=== PATIENT | male | born 1940 | race Caucasian/White ===

== ENCOUNTER 2018-11-13 18:06 | Inpatient (IN) | payer MEDICARE, OTHER, SELFPAY ==
[2018-11-13 18:11] VITALS: BP 132/79; PULSE 84; RESP 18; TEMP 36.7; O2SAT 97; BMI 31.9
--- NOTE | 2018-11-13 19:33 | PCM.PN.HOSP ---
Subjective: Internal medicine consult note This is a 78-year-old male with a significant history of hyperlipidemia; BPH and hypertension who slipped and fell on 11/09/2018 and sustained an acute comminuted fracture of the L proximal fibula metaphysis and had a plate and screws placed in his leg on 11/10/2018. [facility] at [place] and had the above procedure over there. Patient was sent here for rehab. Reports patient is nonweightbearing on his left leg. Internal medicine has been consulted to follow up with his chronic conditions. Report that he is able to move his toes on the left leg. A 12 point review of system is negative except as above. Vitals/I&O's: Vital Signs Temp Pulse Resp BP Pulse Ox 98.0 F 84 18 132/79 H 97 11/13/18 18:11 11/13/18 18:11 11/13/18 18:11 11/13/18 18:11 11/13/18 18:11 Oxygen Delivery Method Room Air Weight: 95.3 kg Body Mass Index (BMI) 31.9 General: Alert, Oriented x3, Cooperative HEENT: Atraumatic, PERRLA, EOMI, Normocephalic Neck: Supple, No JVD, Negative Carotid Bruits Lungs: Clear to auscultation, Normal air movement Cardiovascular: Regular rate, No murmurs Abdomen: Bowel Sounds Present, Soft, Non Tender Extremities: No edema, Capillary Refill Less than 3 Seconds Skin: No rashes, No breakdown Musculoskeletal: - - Left leg and left foot cast. Able to wiggle toes of left foot. Neurological: Neuro grossly intact - Except that he is hard of hearing. Psych/Mental Status: Normal Affect, Appropriate Current Medications Acetaminophen (Tylenol) 1,000 mg PO TID CAROLYN Hydrocodone Bitart/Acetaminophen ([place] 5mg-325mg) 1 tablet PO Q4H PRN PRN PRN Reason: MOD-SEVERE PAIN (4-1010) Aspirin (Ecotrin) 81 mg PO DAILY CAROLYN Atorvastatin Calcium (Lipitor) 20 mg PO QHS CAROLYN Bisacodyl (Dulcolax) 10 mg RECTAL .PRN X 1 PRN PRN Reason: Constipation Cholecalciferol (Vitamin D) 2,000 unit PO DAILY [facility] Enoxaparin Sodium (Lovenox) 40 mg SC DAILY@0600 CAROLYN Magnesium Hydroxide (Milk Of Magnesia) 30 ml PO .PRN X 1 PRN PRN Reason: Constipation Polyethylene Glycol (Miralax) 17 gm PO DAILY PRN PRN Reason: Constipation Senna/Docusate Sodium (Senokot-S, Anum-Colace) 2 tablet PO BID CAROLYN Tamsulosin HCl (Flomax) 0.4 mg PO DAILY [facility] Medical Necessity - Tobacco Use Smoking Status: Former smoker Assessment/Plan This is a 78-year-old male with a significant history of hyperlipidemia; BPH and hypertension who slipped and fell on 11/09/2018 and sustained an acute comminuted fracture of the L proximal fibula metaphysis and had a plate and screws placed who is here for rehab. Acute comminuted fracture of the proximal fibula metaphysis Status post plate and screws and cast. Patient to work with OT and PT. Primary team to follow. [place] and Tylenol as needed. Continue Senokot-S scheduled. Continue Dulcolax and MiraLAX as needed in the setting of narcotic use. Vitamin D continued Hypertension Patient reported that in the past he was taking atenolol but it was making him hypotensive and so at this time he is not on any blood pressure medication. On admission his blood pressure was fairly stable. Trend blood pressures Aspirin continued for ASCVD risk. Hyperlipidemia Lipitor continued Vitamin D deficiency Vitamin D continued BPH Flomax continued DVT prophylaxis Continue subcutaneous Lovenox Code Visit Inpatient E&M: [id number] [facility] L3
[2018-11-13 19:44] VITALS: BP 133/78; PULSE 92; RESP 16; TEMP 36.8; O2SAT 94
[2018-11-13 20:51] VITALS: O2SAT 95
[2018-11-13] MEDS: Acetaminophen 500 MG Tablet 1000 MG PO (21:34)
[2018-11-13] MEDS: Atorvastatin Calcium 20 MG Tablet PO (21:35)
[2018-11-13] MEDS: DiphenhydrAMINE 25 MG Capsule PO (21:41)
[2018-11-14] MEDS: Acetaminophen 500 MG Tablet 1000 MG PO ×3 (05:55→21:49)
[2018-11-14 07:00] VITALS: BP 144/80; PULSE 96; RESP 12; TEMP 36.4; O2SAT 100
[2018-11-14 07:24] LABS: Hematocrit 37.6 % (40-54); Hemoglobin 12.3 g/dl (13.0-16.5); Mean Corp Hgb Conc 32.7 g/gl (32-36); Mean Corpuscular Hgb 31.3 pg (27.0-32.0); Mean Corpuscular Volume 95.7 fL (80-94); Mean Platelet Vol. 8.8 fl (6.2-12.0); Platelet Count 256 K/mm3 (150-450); RBC Distribution Width CV 13.3 % (11.6-14.6); RBC Distribution Width SD 45.1 fl (35.1-43.9); Red Blood Count 3.93 M/mm3 (4.6-6.2); White Blood Count 10.2 K/mm3 (4.4-11.0)
[2018-11-14 07:25] LABS: Scan Indicated on CBC? Y/N NO
[2018-11-14 07:33] LABS: Anion Gap 10 (5-15); BUN 15 mg/dL (7-18); BUN/Creat Ratio 23.4 RATIO (10-20); Calcium,Total 9.3 mg/dL (8.5-10.1); Chloride 106 mmol/L (98-107); Creatinine, Serum 0.64 mg/dL (0.70-1.30); EST Glomerular Filtration Rate 128 mL/min (>60); Est Glom Filt Rate - Afr Amer 154 mL/min (>60); Estimated Creatinine Clearance 57.95 ml/min; Glucose 121 mg/dL (74-106); Potassium 3.4 mmol/L (3.5-5.1); Sodium Level 143 mmol/L (136-145)
[2018-11-14] MEDS: Aspirin E.C. 81 MG Tablet PO (07:36)
[2018-11-14] MEDS: Tamsulosin HCl 0.4 MG Capsule PO (07:36)
--- NOTE | 2018-11-14 11:31 | REHABEVAL_ITS ---
Admission Information Status Changes from Prescreening?: No changes Identified Actual Problem List:: Falls, Pain, ALteration in Cmfrt, Mobility Impaired, BP, Hypertension, Ineffect.D/C Plan r/t Psy Potential Problem List:: DVT, Bleeding, Infection, UTI, Aspiration, Falls, Skin Integrity, Depression Risk of Complications DVT: LMWH, POLINA Hose, Sequential Compression Device Bleeding: Monitor Lab Values, Nursing to Teach Precautions for anti-coagulation therapy., Wound, if applicable, to be assessed every shift., Stroke patients assessed for lethargy or change in status. Infection: Clinical Staff to Monitor for S/S of infection:, S/S of infection include fever, redness, warmth, etc. Urinary Tract Infection: Monitor for frequency, burning, discomfort, or incontinence., Nursing will obtain urine sample for urinalysis and C&S when ordered. Aspiration: Clinical staff will monitor for coughing, drooling, congestion., Speech will evaluate swallowing and dsyphasia., Nursing will monitor patient swallowing during meals. Falls: Patient will be evaluated for Fall Precautions, Patient will be placed on Fall Precautions as indicated per protocol. Skin Breakdown: Nursing will assess skin daily using assessment tool., Nursing will place on Skin Breakdown Precautions as indicated. Pain: Clinical staff will assess patient's pain level per protocol., Medications will be given, if needed, and the pain level reassessed., Other methods: Massage, distraction, decrease stimulus, etc. used PRN. Plan of Care Patient requires physician specializing in physical medicine and rehab oversight to provide close medical supervision of rehab issues including: Pain Management, Sleep Problems, Bowel and Bladder, Medical and co-morbidity Management, DVT prophylaxis, Rehabilitation Leadership, Coordination of treatment team Patient needs Physical Therapy: For a minimum of 1 hour, At least 5 out of 7 days Patient needs Physical Therapy to improve:: Mobility, Mobility, Mobility, Strengthening, Transfers, Stretching, ROM, Endurance, Stairs, Gait, Balance Patient needs Occupational Therapy: For a minimum of 1 hour, At least 5 out of 7 days Patient needs Occupational Therapy to improve ADL's incl.: Eating, Grooming, Bathing, Dressing, Toileting, Toilet transfers, Community Reintegration, Higher functioning activities, Household tasks, Adaptive Equipment, Splinting, Other activities as determined Patient requires 24/ Rehabilitation Nursing for: Pain Issues, Identifying and preventing risk factors, Monitoring and reporting current medical conditions, Assisting with ambulation, transfer, and all ADL's, Teaching patients about disease process and medications, Family teaching, Providing safe environment, Bowel and Bladder Issues, Skin integrity, Medication Management Patient needs Air Sealing Technician/ Case Management for: Discharge Planning, Arranging Home Equipment or Services, Family Interventions Patient needs Dietary and Nutrition Services for: Adequate Nutrition, Nutritional Supplements, Nutritional Education Goals Patient will remain: free from falls, or injury at time of discharge. Patient will perform bed mobility at: MOD I level of assist. Patient will complete transfers from bed to chair at: MOD I level of assist. Patient will ambulate: 100 feet, with MOD I assist, with LRD Patient will complete upper body dressing at: MOD I level of assist. Patient will complete lower body dressing at: MOD I level of assist. Patient will complete toileting at: MOD I level of assist. Patient will perform bathing at: MOD I level of assist. Patient will complete grooming at: MOD I level of assist. Patient will complete home management skills at: MOD I level of assist. Patient will achieve: 12 stairs, at MOD I assist Patient will have pain level of: of 3 or less Patient's skin will: remain intact, free from infection. Patient will receive: adequate nutrition. Discharge Planning Pt Prognosis for Sig. Practical Improv. w/in Reasonable Time: Good Anticipated D/C Destination: Home with Outpt Therapy Was Preadmission Assessment Accurate?: Yes
--- NOTE | 2018-11-14 11:59 | PCM.HP.STD ---
History of Present Illness Date of Admission: 11/14/18 Chief Complaint: Left leg pain The patient is a 78 year old right-handed white male with a history of hypertension, hypercholesterolemia, benign prostatic hypertrophy, and left lumbar radiculopathy who is status post ORIF of his left tib-fib fracture performed at [facility] on 11/09/18 without complications. He apparently was walking to his barn to put a tarp over his tractor and slipped on the ice and fell. He is normally very functionally independent and is very active continues to drive and handle all of his own affairs. He lives with his who is healthy and the house with only 2 steps up to the main level of the house. He had some constipation but this is resolved as of today and he has nausea which is now resolved as well. His pain is controlled only with Tylenol and he has been stable overnight per nursing staff. Goal of rehab is advent of prior level of functional independence. Past Medical History Allergies Penicillins Allergy (Verified 11/13/18 18:28) Hives adhesive tape Adverse Reaction (Verified 11/13/18 18:29) Other [place] blisters Home Medications: Ambulatory Orders Medication Instructions Recorded Acetaminophen [Tylenol Extra 1,000 mg PO TID 11/13/18 Strength] Aspirin [Aspir 81] 81 mg PO DAILY 11/13/18 Atorvastatin Calcium [Lipitor] 20 mg PO QHS 11/13/18 Cholecalciferol (VIT D3) [Vitamin 2,000 unit PO DAILY 11/13/18 D] Polyethylene Glycol 3350 [Miralax] 17 gm PO DAILY PRN 11/13/18 Tamsulosin HCl [Flomax] 0.4 mg PO DAILY 11/13/18 Lives: Spouse/ Significant Other Smoking Status: Former smoker Tobacco Use: Cigarettes Review of Systems Constitutional: Denies: Chills, Fever, Weight Change HEENT: Denies: Head Aches, Sinus Congestion, Sinus Drainage Cardiovascular: Denies: Chest Pain, Palpitations Respiratory: Denies: Cough, Shortness of breath at rest, Sputum production Gastrointestinal: Denies: Abdominal Pain, Nausea, Vomiting Genitourinary: Denies: Dysuria Musculoskeletal: Reports: Leg Pain. Denies: Joint Pain, Joint Tenderness Skin: Denies: Rash, Wounds Neurological: Denies: Numbness, Tingling, Focal weakness Psychiatric: Denies: Anxiety, Depression, Homicidal Ideations, Suicidal Ideations Hematologic/ Lymphatic: Denies: Easy Bruising, Easy Bleeding VTE Information - Inpt Only VTE Present on Admission: Yes VTE Pharm Prophylaxis ordered?: Yes - Physical Exam General: Alert, Oriented x3, Cooperative, No apparent distress Neurological: Cranial nerves II-XII grossly intact Psych/Mental Status: Normal Affect, Alert and oriented to time, place, person, mood and affect Vital Signs Temp Pulse Resp BP Pulse Ox 36.4 C L 96 12 144/80 H 100 11/14/18 07:00 11/14/18 07:00 11/14/18 07:00 11/14/18 07:00 11/14/18 07:00 Oxygen Delivery Method Room Air Weight: 92 kg Body Mass Index (BMI) 31.9 Intake and Output for Last 24 Hours 11/12/18 11/13/18 11/14/18 23:59 23:59 23:59 Output Total 250 / 250 Balance -250 / -250 Laboratory Tests Past 24 Hrs 11/14/18 11/14/18 06:25 06:25 WBC 10.2 RBC 3.93 L Hgb 12.3 L Hct 37.6 L MCV 95.7 H MCH 31.3 MCHC 32.7 RDW 13.3 RDW Differential 45.1 H Plt Count 256 MPV 8.8 Sodium 143 Potassium 3.4 L Chloride 106 Carbon Dioxide 27.0 Anion Gap 10 BUN 15 Creatinine 0.64 L Estim Creat Clear Calc 57.95 Est GFR (MDRD) Af Amer 154 Est GFR (MDRD) Non-Af 128 BUN/Creatinine Ratio 23.4 H Glucose 121 H Calcium 9.3 Current Home Med List Medication Instructions Recorded Confirmed Type Acetaminophen [Tylenol Extra 1,000 mg PO TID 11/13/18 11/13/18 History Strength] Aspirin [Aspir 81] 81 mg PO DAILY 11/13/18 11/13/18 History Atorvastatin Calcium [Lipitor] 20 mg PO QHS 11/13/18 11/13/18 History Cholecalciferol (VIT D3) [Vitamin 2,000 unit PO DAILY 11/13/18 11/13/18 History D] Polyethylene Glycol 3350 [Miralax] 17 gm PO DAILY PRN 11/13/18 11/13/18 History Tamsulosin HCl [Flomax] 0.4 mg PO DAILY 11/13/18 11/13/18 History Current Medications Generic Name Dose Route Start Last Admin Trade Name Yehuda PRN Reason Stop Dose Admin Acetaminophen 1,000 mg 11/13/18 22:00 11/14/18 05:55 Tylenol PO 1,000 mg TID CAROLYN Administration Hydrocodone Bitart/Acetaminophen 1 tablet 11/13/18 19:21 [place] 5mg-325mg PO Q4H PRN PRN MOD-SEVERE PAIN (4-10/10) Aspirin 81 mg 11/14/18 08:00 11/14/18 07:36 Ecotrin PO 81 mg DAILYCM CAROLYN Administration Atorvastatin Calcium 20 mg 11/13/18 22:00 11/13/18 21:35 Lipitor PO 20 mg QHS CAROLYN Administration Bisacodyl 10 mg 11/13/18 19:21 Dulcolax RECTAL .PRN X 1 PRN Constipation Cholecalciferol 2,000 unit 11/14/18 10:00 11/14/18 07:36 Vitamin D PO 2,000 unit DAILY CAROLYN Administration Diphenhydramine HCl 25 mg 11/13/18 20:56 11/13/18 21:41 Benadryl PO 25 mg Q8H PRN PRN Administration ITCHING Enoxaparin Sodium 40 mg 11/14/18 06:00 Lovenox SC DAILY@0600 [facility] Magnesium Hydroxide 30 ml 11/13/18 19:21 Milk Of Magnesia PO .PRN X 1 PRN Constipation Polyethylene Glycol 17 gm 11/13/18 19:15 Miralax PO DAILY PRN Constipation Senna/Docusate Sodium 2 tablet 11/13/18 22:00 11/14/18 07:37 Senokot-S, Anum-Colace PO Not Given BID [facility] Tamsulosin HCl 0.4 mg 11/14/18 10:00 11/14/18 07:36 Flomax PO 0.4 mg DAILY CAROLYN Administration Assessment/Plan Debility status post left tib-fib fracture status post ORIF performed at the [facility] on 11/09/18. Previously functionally independent goal of rehab is advent of prior level of functional independence. Plan: Physical therapy for gait and balance Occupational Therapy for ADLs Bowel protocol DVT prophylaxis: Lovenox PRN analgesics: Currently controlled with only Tylenol Hypertension: Controlled BPH: Continue Flomax Hypercholesterolemia: Continue statin therapy Lumbar radiculopathy: Chronic, pain is controlled, outpatient follow-up with orthopedics
--- NOTE | 2018-11-14 12:04 | HP.PCM_ITS ---
History of Present Illness Date of Admission: 11/14/18 Chief Complaint: Left leg pain The patient is a 78 year old right-handed white male with a history of hypertension, hypercholesterolemia, benign prostatic hypertrophy, and left lumbar radiculopathy who is status post ORIF of his left tib-fib fracture perfo rmed at [facility] on 11/09/18 without complications. He apparently was walking to his barn to put a tarp over his tractor and slipped on the ice and fell. He is normally very functionally independent and is very active continues to drive and handle all of his own affairs. He lives with his who is healthy and the house with only 2 steps up to the main level of the house. He had some constipation but this is resolved as of today and he has nausea which is now resolved as well. His pain is controlled only with Tylenol and he has been stable overnight per nursing staff. Goal of rehab is sabianism of prior level of functional independence. Past Medical History Allergies Penicillins Allergy (Verified 11/13/18 18:28) Hives adhesive tape Adverse Reaction (Verified 11/13/18 18:29) Other [place] blisters Home Medications: Ambulatory Orders Medication Instructions Recorded Acetaminophen [Tylenol Extra 1,000 mg PO TID 11/13/18 Strength] Aspirin [Aspir 81] 81 mg PO DAILY 11/13/18 Atorvastatin Calcium [Lipitor] 20 mg PO QHS 11/13/18 Cholecalciferol (VIT D3) [Vitamin 2,000 unit PO DAILY 11/13/18 D] Polyethylene Glycol 3350 [Miralax] 17 gm PO DAILY PRN 11/13/18 Tamsulosin HCl [Flomax] 0.4 mg PO DAILY 11/13/18 Lives: Spouse/ Significant Other Smoking Status: Former smoker Tobacco Use: Cigarettes Review of Systems Constitutional: Denies: Chills, Fever, Weight Change HEENT: Denies: Head Aches, Sinus Congestion, Sinus Drainage Cardiovascular: Denies: Chest Pain, Palpitations Respiratory: Denies: Cough, Shortness of breath at rest, Sputum production Gastrointestinal: Denies: Abdominal Pain, Nausea, Vomiting Genitourinary: Denies: Dysuria Musculoskeletal: Reports: Leg Pain. Denies: Joint Pain, Joint Tenderness Skin: Denies: Rash, Wounds Neurological: Denies: Numbness, Tingling, Focal weakness Psychiatric: Denies: Anxiety, Depression, Homicidal Ideations, Suicidal Ideations Hematologic/ Lymphatic: Denies: Easy Bruising, Easy Bleeding VTE Information - Inpt Only VTE Present on Admission: Yes VTE Pharm Prophylaxis ordered?: Yes - Physical Exam General: Alert, Oriented x3, Cooperative, No apparent distress Neurological: Cranial nerves II-XII grossly intact Psych/Mental Status: Normal Affect, Alert and oriented to time, place, person, mood and affect Vital Signs Temp Pulse Resp BP Pulse Ox 36.4 C L 96 12 144/80 H 100 11/14/18 07:00 11/14/18 07:00 11/14/18 07:00 11/14/18 07:00 11/14/18 07:00 Oxygen Delivery Method Room Air Weight: 92 kg Body Mass Index (BMI) 31.9 Intake and Output for Last 24 Hours 11/12/18 11/13/18 11/14/18 23:59 23:59 23:59 Output Total 250 / 250 Balance -250 / -250 Laboratory Tests Past 24 Hrs 11/14/18 11/14/18 06:25 06:25 WBC 10.2 RBC 3.93 L Hgb 12.3 L Hct 37.6 L MCV 95.7 H MCH 31.3 MCHC 32.7 RDW 13.3 RDW Differential 45.1 H Plt Count 256 MPV 8.8 Sodium 143 Potassium 3.4 L Chloride 106 Carbon Dioxide 27.0 Anion Gap 10 BUN 15 Creatinine 0.64 L Estim Creat Clear Calc 57.95 Est GFR (MDRD) Af Amer 154 Est GFR (MDRD) Non-Af 128 BUN/Creatinine Ratio 23.4 H Glucose 121 H Calcium 9.3 Current Home Med List Medication Instructions Recorded Confirmed Type Acetaminophen [Tylenol Extra 1,000 mg PO TID 11/13/18 11/13/18 History Strength] Aspirin [Aspir 81] 81 mg PO DAILY 11/13/18 11/13/18 History Atorvastatin Calcium [Lipitor] 20 mg PO QHS 11/13/18 11/13/18 History Cholecalciferol (VIT D3) [Vitamin 2,000 unit PO DAILY 11/13/18 11/13/18 History D] Polyethylene Glycol 3350 [Miralax] 17 gm PO DAILY PRN 11/13/18 11/13/18 History Tamsulosin HCl [Flomax] 0.4 mg PO DAILY 11/13/18 11/13/18 History Current Medications Generic Name Dose Route Start Last Admin Trade Name Yehuda PRN Reason Stop Dose Admin Acetaminophen 1,000 mg 11/13/18 22:00 11/14/18 05:55 Tylenol PO 1,000 mg TID CAROLYN Administration Hydrocodone Bitart/Acetaminophen 1 tablet 11/13/18 19:21 [place] 5mg-325mg PO Q4H PRN PRN MOD-SEVERE PAIN (4-10/10) Aspirin 81 mg 11/14/18 08:00 11/14/18 07:36 Ecotrin PO 81 mg DAILYCM CAROLYN Administration Atorvastatin Calcium 20 mg 11/13/18 22:00 11/13/18 21:35 Lipitor PO 20 mg QHS CAROLYN Administration Bisacodyl 10 mg 11/13/18 19:21 Dulcolax RECTAL .PRN X 1 PRN Constipation Cholecalciferol 2,000 unit 11/14/18 10:00 11/14/18 07:36 Vitamin D PO 2,000 unit DAILY CAROLYN Administration Diphenhydramine HCl 25 mg 11/13/18 20:56 11/13/18 21:41 Benadryl PO 25 mg Q8H PRN PRN Administration ITCHING Enoxaparin Sodium 40 mg 11/14/18 06:00 Lovenox SC DAILY@0600 [facility] Magnesium Hydroxide 30 ml 11/13/18 19:21 Milk Of Magnesia PO .PRN X 1 PRN Constipation Polyethylene Glycol 17 gm 11/13/18 19:15 Miralax PO DAILY PRN Constipation Senna/Docusate Sodium 2 tablet 11/13/18 22:00 11/14/18 07:37 Senokot-S, Anum-Colace PO Not Given BID [facility] Tamsulosin HCl 0.4 mg 11/14/18 10:00 11/14/18 07:36 Flomax PO 0.4 mg DAILY CAROLYN Administration Assessment/Plan Debility status post left tib-fib fracture status post ORIF performed at the [facility] on 11/09/18. Previously functionally independent goal of rehab is sabianism of prior level of functional independence. Plan: Physical therapy for gait and balance Occupational Therapy for ADLs Bowel protocol DVT prophylaxis: Lovenox PRN analgesics: Currently controlled with only Tylenol Hypertension: Controlled BPH: Continue Flomax Hypercholesterolemia: Continue statin therapy Lumbar radiculopathy: Chronic, pain is controlled, outpatient follow-up with ort hopedics
[2018-11-14 14:11] VITALS: O2SAT 95
[2018-11-14] MEDS: Enoxaparin 40 MG/0.4 ML Syringe SC (14:38)
[2018-11-14] MEDS: HYDROcodone Bitartrate/Apap 5/325 Tablet PO (19:32)
[2018-11-14 20:19] VITALS: BP 120/69; PULSE 83; RESP 16; TEMP 36.9; O2SAT 97
[2018-11-14] MEDS: DiphenhydrAMINE 25 MG Capsule PO (21:52)
[2018-11-14] MEDS: Atorvastatin Calcium 20 MG Tablet PO (23:11)
[2018-11-15] MEDS: Enoxaparin 40 MG/0.4 ML Syringe SC (05:55)
[2018-11-15] MEDS: Acetaminophen 500 MG Tablet 1000 MG PO ×2 (05:57→14:53)
[2018-11-15 07:49] VITALS: BP 143/83; PULSE 73; RESP 18; TEMP 36.4; O2SAT 96
[2018-11-15] MEDS: Aspirin E.C. 81 MG Tablet PO (07:49)
[2018-11-15] MEDS: Tamsulosin HCl 0.4 MG Capsule PO (07:50)
[2018-11-15] MEDS: HYDROcodone Bitartrate/Apap 5/325 Tablet PO (10:55)
[2018-11-15 13:35] VITALS: O2SAT 96
[2018-11-15 19:30] VITALS: BP 124/80; PULSE 85; RESP 16; TEMP 36.9; O2SAT 95
[2018-11-15] MEDS: Atorvastatin Calcium 20 MG Tablet PO (20:07)
[2018-11-15] MEDS: DiphenhydrAMINE 25 MG Capsule PO (20:08)
[2018-11-16] MEDS: HYDROcodone Bitartrate/Apap 5/325 Tablet PO (00:40)
[2018-11-16] MEDS: Enoxaparin 40 MG/0.4 ML Syringe SC (06:16)
[2018-11-16] MEDS: Acetaminophen 500 MG Tablet 1000 MG PO ×3 (06:17→21:03)
[2018-11-16 06:33] LABS: Anion Gap 6 (5-15); BUN 15 mg/dL (7-18); BUN/Creat Ratio 21.7 RATIO (10-20); Chloride 106 mmol/L (98-107); Creatinine, Serum 0.69 mg/dL (0.70-1.30); EST Glomerular Filtration Rate 117 mL/min (>60); Est Glom Filt Rate - Afr Amer 142 mL/min (>60); Estimated Creatinine Clearance 57.95 ml/min; Glucose 105 mg/dL (74-106); Magnesium 1.7 mg/dL (1.6-2.6); Phosphorus 2.6 mg/dL (2.5-4.9); Potassium 3.8 mmol/L (3.5-5.1); Sodium Level 139 mmol/L (136-145)
[2018-11-16 07:51] VITALS: BP 131/80; PULSE 71; RESP 18; TEMP 36.6; O2SAT 95
[2018-11-16] MEDS: Tamsulosin HCl 0.4 MG Capsule PO (08:36)
[2018-11-16] MEDS: Aspirin E.C. 81 MG Tablet PO (08:36)
--- NOTE | 2018-11-16 10:54 | PCM.PN.NEU ---
Subjective: He reports that his back pain is becoming somewhat worse with therapies which she attributes to his nonweightbearing status. He asks about going home utilizing a home health nurse or aide. This was relayed to child welfare social worker although I indicated the patient that this usually is not paid for by insurance. - Physical Exam General: Alert, Oriented x3, Cooperative, No apparent distress Neurological: Cranial nerves II-XII grossly intact Psych/Mental Status: Normal Affect, Alert and oriented to time, place, person, mood and affect Vital Signs Temp Pulse Resp BP Pulse Ox 36.6 C 71 18 131/80 H 95 11/16/18 07:51 11/16/18 07:51 11/16/18 07:51 11/16/18 07:51 11/16/18 07:51 Oxygen Delivery Method Room Air Weight: 92 kg Body Mass Index (BMI) 31.9 Intake and Output for Last 24 Hours 11/14/18 11/15/18 11/16/18 23:59 23:59 23:59 Intake Total 600 / 600 Output Total 250 / 250 Balance 350 / 350 Laboratory Tests Past 24 Hrs 11/16/18 05:52 Sodium 139 Potassium 3.8 Chloride 106 Carbon Dioxide 27.0 Anion Gap 6 BUN 15 Creatinine 0.69 L Estim Creat Clear Calc 57.95 Est GFR (MDRD) Af Amer 142 Est GFR (MDRD) Non-Af 117 BUN/Creatinine Ratio 21.7 H Glucose 105 Calcium 9.0 Phosphorus 2.6 Magnesium 1.7 Current Medications Generic Name Dose Route Start Last Admin Trade Name Freq PRN Reason Stop Dose Admin Acetaminophen 1,000 mg 11/13/18 22:00 11/16/18 06:17 Tylenol PO 1,000 mg TID CAROLYN Administration Hydrocodone Bitart/Acetaminophen 1 tablet 11/13/18 19:21 11/16/18 00:40 [place] 5mg-325mg PO 1 tablet Q4H PRN PRN Administration MOD-SEVERE PAIN (4-1010) Aspirin 81 mg 11/14/18 08:00 11/16/18 08:36 Ecotrin PO 81 mg DAILYCM CAROLYN Administration Atorvastatin Calcium 20 mg 11/13/18 22:00 11/15/18 20:07 Lipitor PO 20 mg QHS CAROLYN Administration Bisacodyl 10 mg 11/13/18 19:21 Dulcolax RECTAL .PRN X 1 PRN Constipation Cholecalciferol 2,000 unit 11/14/18 10:00 11/16/18 08:36 Vitamin D PO 2,000 unit DAILY CAROLYN Administration Diphenhydramine HCl 25 mg 11/13/18 20:56 11/15/18 20:08 Benadryl PO 25 mg Q8H PRN PRN Administration ITCHING Enoxaparin Sodium 40 mg 11/14/18 14:00 11/16/18 06:16 Lovenox SC 40 mg DAILY@0600 CAROLYN Administration Magnesium Hydroxide 30 ml 11/13/18 19:21 Milk Of Magnesia PO .PRN X 1 PRN Constipation Polyethylene Glycol 17 gm 11/13/18 19:15 Miralax PO DAILY PRN Constipation Senna/Docusate Sodium 2 tablet 11/13/18 22:00 11/16/18 08:37 Senokot-S, Anum-Colace PO Not Given BID CAROLYN Tamsulosin HCl 0.4 mg 11/14/18 10:00 11/16/18 08:36 Flomax PO 0.4 mg DAILY CAROLYN Administration Medical Necessity - Tobacco Use Smoking Status: Former smoker Tobacco Use: Cigarettes Assessment/Plan Debility status post left tib-fib fracture status post ORIF performed at the [facility] on 11/09/18. Previously functionally independent goal of rehab is roman catholic of prior level of functional independence. Plan: Physical therapy for gait and balance Occupational Therapy for ADLs Bowel protocol DVT prophylaxis: Lovenox PRN analgesics: Currently controlled with only Tylenol. He is complaining of worsening of his underlying radicular back pain but he does not appear to be using increasing amounts of analgesics. He does request that we evaluate possible home therapy and I have relayed this to the child welfare social worker staff but I indicated to the patient that this would not likely be covered by his insurance. Hypertension: Controlled BPH: Continue Flomax Hypercholesterolemia: Continue statin therapy Lumbar radiculopathy: Chronic, pain is controlled, outpatient follow-up with orthopedics
--- NOTE | 2018-11-16 16:01 | CASEMGMT ---
Student psychotherapist social worker Assessment reviewed. SALINAS Becker
--- NOTE | 2018-11-16 16:09 | PN_ITS ---
Subjective: Patient seen and examined. He had a left proximal fibular fracture and is status post a prior reduction and internal fixation. Seen and examined. He has no complaints and feels well. Review of systems otherwise negative. Vitals/I&O's: Vital Signs Temp Pulse Resp BP Pulse Ox 97.9 F 71 18 131/80 H 95 11/16/18 07:51 11/16/18 07:51 11/16/18 07:51 11/16/18 07:51 11/16/18 07:51 Oxygen Delivery Method Room Air Weight: 202 lb 13.204 oz Body Mass Index (BMI) 31.9 Intake and Output for Last 24 Hours 11/14/18 11/15/18 11/16/18 23:59 23:59 23:59 Intake Total 600 / 600 440 / 440 Output Total 250 / 250 Balance 350 / 350 440 / 440 General: Alert, Oriented x3, Cooperative, No apparent distress HEENT: Atraumatic, PERRLA, EOMI, Normocephalic Oral: Moist Mucosa Neck: Supple, No JVD, Negative Carotid Bruits Lungs: Clear to auscultation, Normal air movement, No rhonchi, No wheeze, No rales Cardiovascular: Regular rate, Regular Rhythm, Normal S1, Normal S2, No murmurs Abdomen: Bowel Sounds Present, Soft, Non Tender, Non-Distended, No Hepato- splenomegaly Extremities: No clubbing, No cyanosis, No edema, Capillary Refill Less than 3 Seconds Skin: No rashes, No breakdown Musculoskeletal: - - left foot and ankle bandaged Lymphatic: No Cervical, Supraclavicular, or Inguinal Adenopathy Neurological: Cranial nerves II-XII grossly intact, Neuro grossly intact Psych/Mental Status: Normal Affect, Appropriate, Alert and oriented to time, place, person, mood and affect Laboratory Results 11/16/18 05:52: Sodium 139, Potassium 3.8, Chloride 106, Carbon Dioxide 27.0, Anion Gap 6, BUN 15, Creatinine 0.69 L, Estim Creat Clear Calc 57.95, Est GFR (MDRD) Af Amer 142, Est GFR (MDRD) Non-Af 117, BUN/Creatinine Ratio 21.7 H, Glucose 105, Calcium 9.0, Phosphorus 2.6, Magnesium 1.7 Current Medications Acetaminophen (Tylenol) 1,000 mg PO TID [facility] Last Admin: 11/16/18 13:15 Dose: 1,000 mg Hydrocodone Bitart/Acetaminophen ([place] 5mg-325mg) 1 tablet PO Q4H PRN PRN PRN Reason: MOD-SEVERE PAIN (4-07/15) Last Admin: 11/16/18 00:40 Dose: 1 tablet Aspirin (Ecotrin) 81 mg PO DAILYCM [facility] Last Admin: 11/16/18 08:36 Dose: 81 mg Atorvastatin Calcium (Lipitor) 20 mg PO QHS [facility] Last Admin: 11/15/18 20:07 Dose: 20 mg Bisacodyl (Dulcolax) 10 mg RECTAL .PRN X 1 PRN PRN Reason: Constipation Cholecalciferol (Vitamin D) 2,000 unit PO DAILY [facility] Last Admin: 11/16/18 08:36 Dose: 2,000 unit Diphenhydramine HCl (Benadryl) 25 mg PO Q8H PRN PRN PRN Reason: ITCHING Last Admin: 11/15/18 20:08 Dose: 25 mg Enoxaparin Sodium (Lovenox) 40 mg SC DAILY@0600 [facility] Last Admin: 11/16/18 06:16 Dose: 40 mg Magnesium Hydroxide (Milk Of Magnesia) 30 ml PO .PRN X 1 PRN PRN Reason: Constipation Polyethylene Glycol (Miralax) 17 gm PO DAILY PRN PRN Reason: Constipation Senna/Docusate Sodium (Senokot-S, Anum-Colace) 2 tablet PO BID [facility] Last Admin: 11/16/18 08:37 Dose: Not Given Tamsulosin HCl (Flomax) 0.4 mg PO DAILY [facility] Last Admin: 11/16/18 08:36 Dose: 0.4 mg Medical Necessity - Tobacco Use Smoking Status: Former smoker Tobacco Use: Cigarettes Assessment/Plan 1. Comminuted fracture of left proximal fibula s/p ORIF * stable * pain well controlled * PT/OT on board * on tyelenol adn norco * on vitamin D * 2. Hypertension * Pressure controlled for age. States he stopped taking atenolol because he was became hypotensive in the past. * Continue to monitor. * 3. Hyperlipidemia: On statin 4. Vitamin D deficiency: Vitamin D 5. BPH: On Flomax DVT prophylaxis: Lovenox Code Visit Inpatient E&M: 90498 Subs Hosp L2
[2018-11-16 21:00] VITALS: BP 148/71; PULSE 77; RESP 18; TEMP 36.6; O2SAT 96
[2018-11-16] MEDS: DiphenhydrAMINE 25 MG Capsule PO (21:03)
[2018-11-16] MEDS: Atorvastatin Calcium 20 MG Tablet PO (21:03)
[2018-11-16] MEDS: Senna/Docusate Sodium 1 Tablet 2 TABLET PO (21:03)
[2018-11-17] MEDS: Enoxaparin 40 MG/0.4 ML Syringe SC (06:45)
[2018-11-17] MEDS: Acetaminophen 500 MG Tablet 1000 MG PO ×3 (06:45→21:29)
[2018-11-17] MEDS: Aspirin E.C. 81 MG Tablet PO (07:49)
[2018-11-17] MEDS: Tamsulosin HCl 0.4 MG Capsule PO (07:49)
[2018-11-17 08:23] VITALS: BP 167/93; PULSE 99; RESP 18; TEMP 36.2; O2SAT 95
--- NOTE | 2018-11-17 11:31 | PCM.PN.NEU ---
Subjective: No new complaints. He continues to ask about home health and going home early. We discussed team meeting on and an update at that point. He says he is tolerating therapies otherwise and no other complaints. - Physical Exam General: Alert, Oriented x3, Cooperative, - - Hard of hearing HEENT: PERRLA, EOMI Extremities: No Calf Tenderness Neurological: Cranial nerves II-XII grossly intact Psych/Mental Status: Normal Affect, Alert and oriented to time, place, person, mood and affect Vital Signs Temp Pulse Resp BP Pulse Ox 36.2 C L 99 18 167/93 H 95 11/17/18 08:23 11/17/18 08:23 11/17/18 08:23 11/17/18 08:23 11/17/18 08:23 Oxygen Delivery Method Room Air Weight: 92 kg Body Mass Index (BMI) 31.9 Intake and Output for Last 24 Hours 11/15/18 11/16/18 11/17/18 23:59 23:59 23:59 Intake Total 440 / 440 180 / 180 Balance 440 / 440 180 / 180 Medical Necessity - Tobacco Use Smoking Status: Former smoker Tobacco Use: Cigarettes Assessment/Plan Debility status post left tib-fib fracture status post ORIF performed at the [facility] on 11/09/18. Previously functionally independent goal of rehab is orthodoxy of prior level of functional independence. Plan: Physical therapy for gait and balance Occupational Therapy for ADLs Bowel protocol DVT prophylaxis: Lovenox PRN analgesics: Currently controlled with only Tylenol. He is complaining of worsening of his underlying radicular back pain but he does not appear to be using increasing amounts of analgesics. He does request that we evaluate possible home therapy and I have relayed this to the social work manager staff but I indicated to the patient that this would not likely be covered by his insurance. 11/17: Social work updated. I indicated to the patient that the insurance would not likely cover this but we will investigate this and update him on at the team meeting regardless. Hypertension: Controlled BPH: Continue Flomax Hypercholesterolemia: Continue statin therapy Lumbar radiculopathy: Chronic, pain is controlled, outpatient follow-up with orthopedics
[2018-11-17 21:25] VITALS: BP 141/72; PULSE 79; RESP 18; TEMP 36.7; O2SAT 94
[2018-11-17] MEDS: Atorvastatin Calcium 20 MG Tablet PO (21:29)
[2018-11-17] MEDS: DiphenhydrAMINE 25 MG Capsule PO (21:29)
[2018-11-17 21:45] VITALS: PULSE 84; RESP 16; O2SAT 94
--- NOTE | 2018-11-18 02:28 | NURSING ---
Reviewed and agree with POWDER CORE TESTER documentation and FIMs charting.
--- NOTE | 2018-11-18 02:33 | NURSING ---
Reviewed and agree with INTELLECTUAL PROPERTY COUNSEL documentation and FIMs charting.
[2018-11-18] MEDS: Acetaminophen 500 MG Tablet 1000 MG PO ×3 (06:38→20:36)
[2018-11-18] MEDS: Enoxaparin 40 MG/0.4 ML Syringe SC (06:39)
[2018-11-18 07:00] VITALS: BP 129/70; PULSE 85; RESP 20; TEMP 36.5; O2SAT 94
[2018-11-18] MEDS: Tamsulosin HCl 0.4 MG Capsule PO (07:40)
[2018-11-18] MEDS: Senna/Docusate Sodium 1 Tablet 2 TABLET PO (07:41)
[2018-11-18] MEDS: Aspirin E.C. 81 MG Tablet PO (08:11)
--- NOTE | 2018-11-18 14:31 | CASEMGMT ---
Social Work Met with patient in room to discuss discharge planning. Patient reporting to be planning to discharge to home with spouse and to need a wheelchair at time of discharge. This loft worker apprentice communicating that a wheelchair with a gel cushion can be ordered for patient prior to patient discharge. Patient to be teamed tomorrow. No discharge date set at this time. Will continue to follow. KELI [place], AMARILYS
--- NOTE | 2018-11-18 15:01 | PCM.PN.HOSP ---
Subjective: Patient seen and examined. Has no complaints and feels well. Review of systems otherwise negative. Vitals reviewed. Vitals/I&O's: Vital Signs Temp Pulse Resp BP Pulse Ox 97.7 F L 85 20 H 129/70 H 94 11/18/18 07:00 11/18/18 07:00 11/18/18 07:00 11/18/18 07:00 11/18/18 07:00 Oxygen Delivery Method Room Air Weight: 202 lb 13.204 oz Body Mass Index (BMI) 31.9 Intake and Output for Last 24 Hours 11/16/18 11/17/18 11/18/18 23:59 23:59 23:59 Intake Total 440 / 440 600 / 600 600 / 600 Balance 440 / 440 600 / 600 600 / 600 General: Alert, Oriented x3, Cooperative, No apparent distress HEENT: Atraumatic, PERRLA, EOMI, Normocephalic Oral: Moist Mucosa Neck: Supple, No JVD, Negative Carotid Bruits Lungs: Clear to auscultation, Normal air movement, No rhonchi, No wheeze, No rales Cardiovascular: Regular rate, Regular Rhythm, Normal S1, Normal S2, No murmurs Abdomen: Bowel Sounds Present, Soft, Non Tender, Non-Distended, No Hepato-splenomegaly Extremities: No clubbing, No cyanosis, No edema, Capillary Refill Less than 3 Seconds Skin: No rashes, No breakdown Musculoskeletal: - - left foot and ankle bandaged Lymphatic: No Cervical, Supraclavicular, or Inguinal Adenopathy Neurological: Cranial nerves II-XII grossly intact, Neuro grossly intact Psych/Mental Status: Normal Affect, Appropriate, Alert and oriented to time, place, person, mood and affect Current Medications Acetaminophen (Tylenol) 1,000 mg PO TID [facility] Last Admin: 11/18/18 13:11 Dose: 1,000 mg Hydrocodone Bitart/Acetaminophen ([place] 5mg-325mg) 1 tablet PO Q4H PRN PRN PRN Reason: MOD-SEVERE PAIN (4-10/10) Last Admin: 11/16/18 00:40 Dose: 1 tablet [facility] Last Admin: 11/18/18 08:11 Dose: 81 mg Atorvastatin Calcium (Lipitor) 20 mg PO QHS [facility] Last Admin: 11/17/18 21:29 Dose: 20 mg Bisacodyl (Dulcolax) 10 mg RECTAL .PRN X 1 PRN PRN Reason: Constipation Cholecalciferol (Vitamin D) 2,000 unit PO DAILY [facility] Last Admin: 11/18/18 07:40 Dose: 2,000 unit Diphenhydramine HCl (Benadryl) 25 mg PO Q8H PRN PRN PRN Reason: ITCHING Last Admin: 11/17/18 21:29 Dose: 25 mg Enoxaparin Sodium (Lovenox) 40 mg SC DAILY@0600 [facility] Last Admin: 11/18/18 06:39 Dose: 40 mg Magnesium Hydroxide (Milk Of Magnesia) 30 ml PO .PRN X 1 PRN PRN Reason: Constipation Polyethylene Glycol (Miralax) 17 gm PO DAILY PRN PRN Reason: Constipation Senna/Docusate Sodium (Senokot-S, Anum-Colace) 2 tablet PO BID [facility] Last Admin: 11/18/18 07:41 Dose: 2 tablet Tamsulosin HCl (Flomax) 0.4 mg PO DAILY [facility] Last Admin: 11/18/18 07:40 Dose: 0.4 mg Medical Necessity - Tobacco Use Smoking Status: Former smoker Tobacco Use: Cigarettes Assessment/Plan 1. Comminuted fracture of left proximal fibula s/p ORIF stable pain well controlled PT/OT on board on tyelenol and norco on vitamin D 2. Hypertension Pressure controlled for age. not on any oral meds. Diet controlled Continue to monitor. 3. Hyperlipidemia: On statin 4. Vitamin D deficiency: Vitamin D 5. BPH: On Flomax DVT prophylaxis: Lovenox Code Visit Inpatient E&M: 45137 Subs Hosp L2
[2018-11-18 20:30] VITALS: BP 115/57; PULSE 84; RESP 14; TEMP 36.6; O2SAT 96
[2018-11-18] MEDS: Atorvastatin Calcium 20 MG Tablet PO (20:36)
[2018-11-19] MEDS: Acetaminophen 500 MG Tablet 1000 MG PO ×3 (05:54→21:28)
[2018-11-19] MEDS: Enoxaparin 40 MG/0.4 ML Syringe SC (05:54)
[2018-11-19] MEDS: Tamsulosin HCl 0.4 MG Capsule PO (07:46)
[2018-11-19] MEDS: Aspirin E.C. 81 MG Tablet PO (07:46)
[2018-11-19 08:21] VITALS: BP 139/73; PULSE 66; RESP 16; TEMP 36.6; O2SAT 95
--- NOTE | 2018-11-19 09:50 | PCM.PN.NEU ---
Subjective: No new complaints. Tolerating therapies. No GI or complaints. Staffed in team meeting. His is present. He is doing well with transfers and physical therapy he remains nonweightbearing however. Nursing notes that his primary complaint really is his chronic back pain. The patient would like to go home, agrees to this plan to discharge to home in the morning. - Physical Exam General: Alert, Oriented x3, Cooperative Neurological: Cranial nerves II-XII grossly intact Psych/Mental Status: Normal Affect, Alert and oriented to time, place, person, mood and affect Vital Signs Temp Pulse Resp BP Pulse Ox 36.6 C 66 16 139/73 H 95 11/19/18 08:21 11/19/18 08:21 11/19/18 08:21 11/19/18 08:21 11/19/18 08:21 Oxygen Delivery Method Room Air Weight: 91.626 kg Body Mass Index (BMI) 31.9 Intake and Output for Last 24 Hours 11/17/18 11/18/18 11/19/18 23:59 23:59 23:59 Intake Total 600 / 600 840 / 840 Output Total 700 / 700 Balance 600 / 600 140 / 140 Medical Necessity - Tobacco Use Smoking Status: Former smoker Tobacco Use: Cigarettes Assessment/Plan Debility status post left tib-fib fracture status post ORIF performed at the [facility] on 11/09/18. Previously functionally independent goal of rehab is muslim of prior level of functional independence. Plan: Physical therapy for gait and balance. 11/19: Stable Occupational Therapy for ADLs. 11/19: Stable/improved Bowel protocol. 11/19: No issues DVT prophylaxis: Lovenox. 11/19: Continue PRN analgesics: Currently controlled with only Tylenol. He is complaining of worsening of his underlying radicular back pain but he does not appear to be using increasing amounts of analgesics. He does request that we evaluate possible home therapy and I have relayed this to the director social staff but I indicated to the patient that this would not likely be covered by his insurance. 11/17: Social work updated. I indicated to the patient that the insurance would not likely cover this but we will investigate this and update him on at the team meeting regardless. 11/19: Discharge in a.m. Hypertension: Controlled BPH: Continue Flomax Hypercholesterolemia: Continue statin therapy Lumbar radiculopathy: Chronic, pain is controlled, outpatient follow-up with orthopedics
--- NOTE | 2018-11-19 10:29 | NURSING ---
This nurse spoke with Joann at Dr Geiger office, made aware of pt's BP medications being discontinued while he was at [facility] and also HGBA1C results. Pt has F/U appt with Dr Santo on 12/01
--- NOTE | 2018-11-19 10:58 | PCM.RU.DC ---
Rehab Discharge Summary DATE OF ADMISSION: 11/13/18 DATE OF DISCHARGE: 11/20/18 - Rehab Diagnosis Debility status post left leg fracture - Physical Exam General: Alert, Oriented x3, Cooperative, No apparent distress HEENT: PERRLA, EOMI, Normocephalic Cardiovascular: Regular rate Abdomen: Bowel Sounds Present Extremities: No Calf Tenderness Neurological: Cranial nerves II-XII grossly intact Psych/Mental Status: Normal Affect, Alert and oriented to time, place, person, mood and affect Vital Signs Temp Pulse Resp BP Pulse Ox 36.6 C 66 16 139/73 H 95 11/19/18 08:21 11/19/18 08:21 11/19/18 08:21 11/19/18 08:21 11/19/18 08:21 Oxygen Delivery Method Room Air Weight: 91.626 kg Body Mass Index (BMI) 31.9 Intake and Output for Last 24 Hours 11/17/18 11/18/18 11/19/18 23:59 23:59 23:59 Intake Total 600 / 600 840 / 840 Output Total 700 / 700 Balance 600 / 600 140 / 140 Discharge Diet: No Restrictions Discharge Activity: Return to Normal Activity, May Not Drive, Use Walker Weight Bearing Status: No weight bearing Call your doctor if you observe: Fever of 101 or Higher, Coldness, Increased Pain, Numbness or Tingling, Change in Color, Inability to urinate, Inability to have a bowel movement Home Medications: Medications to take at Discharge Acetaminophen [Tylenol] 1,000 mg PO TID 11/13/18 Aspirin [Aspir 81] 81 mg PO DAILY 11/13/18 Atorvastatin Calcium [Lipitor] 20 mg PO QHS 11/13/18 Cholecalciferol (VIT D3) [Vitamin D3] 2,000 unit PO DAILY 11/13/18 Tamsulosin HCl [Flomax] 0.4 mg PO DAILY 11/13/18 Please Follow Up With: Dr. Ervin Please Follow Up With: Dr. Santo Disposition: Home Minutes spent on discharge:: 40 Patient Condition:: Good Rehab Course The patient is a 78 year old right-handed white male with a history of hypertension, hypercholesterolemia, benign prostatic hypertrophy, and left lumbar radiculopathy who is status post ORIF of his left tib-fib fracture performed at [facility] on 11/09/18 without complications. He apparently was walking to his barn to put a tarp over his tractor and slipped on the ice and fell. He is normally very functionally independent and is very active continues to drive and handle all of his own affairs. He lives with his who is healthy and the house with only 2 steps up to the main level of the house. He had some constipation but this is resolved as of today and he has nausea which is now resolved as well. His pain is controlled only with Tylenol and he has been stable overnight per nursing staff. Goal of rehab is religious of prior level of functional independence. His rehab stay was uneventful and he improved however he did indicate that his ongoing left radicular pain was somewhat worse with therapies and he preferred to return home. He was staffed in team meeting this was discussed with his , his felt that she could handle his care issues at home while he continued his convalescence he was therefore discharged home in good condition with follow-up instructions as described. Meaningful Use Info Meaningful Use Diagnoses (Choose all that apply): None applicable
--- NOTE | 2018-11-19 11:03 | DCINST_ITS ---
You will use the following diet at home:: No restrictions, Regular Your food should be the consistency of: Regular Your liquids should be the consistency of: Regular/Thin Discharge Activity: Return to Normal Activity, May Not Drive, Use Walker Weight Bearing Status: No weight bearing Lifting Restrictions: 10 pounds Call your doctor if you observe: Fever of 101 or Higher, Coldness, Increased Pain, Numbness or Tingling, Change in Color, Inability to urinate, Inability to have a bowel movement Allergies/Adverse Reactions: Allergies Penicillins Allergy (Verified 11/13/18 18:28) Hives adhesive tape Adverse Reaction (Verified 11/13/18 18:29) Other [place] blisters Medications to take at Discharge Acetaminophen [Tylenol] 1,000 mg PO TID 11/13/18 Aspirin [Aspir 81] 81 mg PO DAILY 11/13/18 Atorvastatin Calcium [Lipitor] 20 mg PO QHS 11/13/18 Cholecalciferol (VIT D3) [Vitamin D3] 2,000 unit PO DAILY 11/13/18 Tamsulosin HCl [Flomax] 0.4 mg PO DAILY 11/13/18 Test Results: Test results from this visit will be discussed in further detail at your follow- up appointment, if applicable. Please Follow Up With: Dr. Ervin Please Follow Up With: Dr. Santo Proposed Discharge Date: 11/20/18
--- NOTE | 2018-11-19 11:48 | CASEMGMT ---
Team meeting held. Patient present as well as patient family. Patient choosing to discharge on 11/20/18, team is agreeable to discharge date. Therapy providing patient with home exercise program. Patient reporting to need a wheelchair and to not have a preference of [place], [employer] to be utilized. Patient family plans to provide transportation home for patient at time of discharge. Patient plans to discharge to home with spouse. Patient reporting to have a walker already set up within the home to assist with transfers. Support given. Order for wheelchair faxed to [employer]. [facility] to have wheelchair delivered to patient room prior to patient discharge. Proposed discharge date: 11/20/18 PLAN: Discharge to home with spouse. Arnoldo DICKEY, AMARILYS
[2018-11-19 19:47] VITALS: BP 132/73; PULSE 73; RESP 18; TEMP 36.6; O2SAT 95
--- NOTE | 2018-11-19 19:57 | NURSING ---
When offered patient did not want to change his clothes for bedtime, patient did brush teeth.
--- NOTE | 2018-11-19 21:03 | NURSING ---
Harsh delivered w/c with foot pedals at this time.
[2018-11-19] MEDS: Atorvastatin Calcium 20 MG Tablet PO (21:28)
[2018-11-19] MEDS: DiphenhydrAMINE 25 MG Capsule PO (21:28)
[2018-11-20] MEDS: Acetaminophen 500 MG Tablet 1000 MG PO (05:12)
[2018-11-20] MEDS: Enoxaparin 40 MG/0.4 ML Syringe SC (05:12)
--- NOTE | 2018-11-20 05:18 | NURSING ---
Patient only wanted to wash his face this morning, warm wash cloth provided. This RN offered to help patient change his clothes and patient refused at this time. Urinal emptied. Fresh ice water also obtained at this time. No other needs voiced.
[2018-11-20 07:34] VITALS: BP 143/84; PULSE 64; RESP 18; TEMP 36.4; O2SAT 94
[2018-11-20] MEDS: Aspirin E.C. 81 MG Tablet PO (07:36)
[2018-11-20] MEDS: Tamsulosin HCl 0.4 MG Capsule PO (07:36)
[2018-11-20] MEDS: Senna/Docusate Sodium 1 Tablet 2 TABLET PO (07:36)
--- NOTE | 2018-11-20 12:23 | NURSING ---
patient and spouse verbalized understanding of d/c instructions. w/c delivered last night and sent home with patient. patient and spouse denied any further questions.
== END 2018-11-20 12:24 | disposition home or self-care (01) | DRG 561 ==
PROVIDERS: Admitting Provider Psychiatry & Neurology Neurology; Visit Provider Student in an Organized Health Care Education/Training Program
DX: S82.832D Other fracture of upper and lower end of left fibula, subsequent encounter for closed fracture with routine healing (principal); W00.0XXD Fall on same level due to ice and snow, subsequent encounter; N40.0 Benign prostatic hyperplasia without lower urinary tract symptoms; M54.16 Radiculopathy, lumbar region; I10 Essential (primary) hypertension; E78.5 Hyperlipidemia, unspecified; Z87.891 Personal history of nicotine dependence; E55.9 Vitamin D deficiency, unspecified
CPT/HCPCS: 36415; 80048; 83735; 84100; 85027; 97110; 97161; 97165; 97530; 97535; 97802

== ENCOUNTER 2020-05-01 16:41 | Inpatient (IN) | payer MEDICARE, OTHER, SELFPAY ==
[2018-11-13 18:11] VITALS: BMI 31.9
[2020-05-01] VITALS (25 sets, daily range): BP systolic 107–162; BP diastolic 70–109; PULSE 55–74; RESP 12–22; TEMP 36.6–37; O2SAT 93–98; BMI 30.2; BMI 32.4
--- NOTE | 2020-05-01 16:43 | CT_ITS ---
We are attempting to reach an attending provider to discuss findings. An addendum with communication details will be sent when the communication is complete. STUDY: CT BRAIN WITHOUT CONTRAST REASON FOR EXAM: Male, 80 years old. APHASIA, POSSIBLE STROKE RADIATION DOSAGE (If Supplied By Facility): CTDIvol = ( 60.81 ) mGy, DLP = ( 1044.28 ) mGycm TECHNIQUE: Transaxial CT imaging of the brain was performed without administration of intravenous contrast material. Individualized dose optimization techniques were used for this CT. COMPARISON: No relevant priors. FINDINGS: Normal soft tissue structures. Normal calvarium. Mild calcification of cavernous carotids. Moderate atrophy and periventricular white matter ischemic changes.. Normal basal ganglia and thalami. Normal brainstem. Normal cerebellum. There is no intracranial hemorrhage. There are no findings of an acute ischemic infarction. Postsurgical changes of the orbits. Normal visualized paranasal sinuses. CT/Brain/Head without Contrast IMPRESSION: Moderate atrophy and periventricular white matter ischemic changes. No evidence for acute bleed. If concern for acute infarct MRI recommended Electronically Signed: Tony Wyatt MD at 16:59 EDT , Service support ,
--- NOTE | 2020-05-01 16:43 | EKG12_ITS ---
Test Reason : STROKE Blood Pressure : / mmHG Vent. Rate : 077 BPM Atrial Rate : 077 BPM P-R Int : 174 ms QRS Dur : 066 ms QT Int : 410 ms P-R-T Axes : 028 072 058 degrees QTc Int : 463 ms Sinus rhythm with occasional Premature ventricular complexes Nonspecific ST and T wave abnormality Abnormal ECG Confirmed by ROSALINO CORNEJO, KELLEY ([id number]), desk editor ANGELA DOYLE ([id number]) on 05/03/2020 12:37:12 PM Referred By: PITA Confirmed By:KELLEY JERRY MD
--- NOTE | 2020-05-01 16:55 | ED.VIS.GEN ---
History of Present Illness Chief Complaint: Neuro S/Sx Past Medical History - Allergies and Home Meds Allergies/Adverse Reactions: Allergies Penicillins Allergy (Verified 11/13/18 18:28) Hives adhesive tape Adverse Reaction (Verified 11/13/18 18:29) Other [place] blisters Smoking Status: Former smoker
--- NOTE | 2020-05-01 17:02 | CT_ITS ---
We are attempting to reach an attending provider to discuss findings. An addendum with communication details will be sent when the communication is complete. STUDY: CTA HEAD AND NECK WITH CONTRAST REASON FOR EXAM: Male, 80 years old. ACUTE NEUROLOGIC DEFICIT, CVA,TPA RUNNING RADIATION DOSAGE (If Supplied By Facility): CTDIvol = ( 24.29 ) mGy, DLP = ( 726.83 ) mGycm TECHNIQUE: CT angiography was performed with a multi-detector CT scanner. Data acquisition was obtained from the skull base through the vertex following intravenous administration of 100ML ISOVUE 370. MIP images were reconstructed from the axial data set. Post-processing of the angiographic images was performed, with multiplanar reformation and 3D reconstruction. Individualized dose optimization techniques were used for this CT. COMPARISON: No relevant priors. FINDINGS: Normal bilateral petrous carotid arteries. Mild calcific plaquing of the right cavernous carotid artery with a normal supraclinoid bifurcation. Mild calcific plaquing of the left cavernous carotid artery with a normal supraclinoid bifurcation. Normal right A1 segments of the anterior cerebral artery. Normal left A1 segments of the anterior cerebral artery. Anterior communicating artery not visualized consistent with normal variant). Normal bilateral A2 segments of the anterior cerebral arteries. Normal right M1 and M2 segments of the middle cerebral arteries, with a normal M1 bifurcation. Normal left M1 and M2 segments of the middle cerebral arteries, with a normal M1 bifurcation. Posterior communicating arteries are not visualized consistent with normal variant Normal left posterior communicating artery (PCOM). Normal bilateral vertebral arteries. Normal basilar artery with a normal basilar bifurcation. The visualized bilateral superior cerebellar (SCA) arteries are normal. Normal bilateral P1, P2 and visualized P3 segments of the posterior cerebral arteries. There is no demonstrated aneurysm of the [place] of [place]. There is no demonstrated abnormality of the visualized brain. AORTIC ARCH: Normal visualized aortic arch. Normal origins of the brachiocephalic, left common carotid, and left subclavian arteries. RIGHT CAROTID ARTERIES: Mild calcific plaquing of the right common carotid artery (CCA). Mild calcific plaquing of the right common carotid bulb. Minor calcific plaquing of the origin of the right internal carotid (ICA) artery without a hemodynamically significant stenosis. Normal visualized cervical portion of the right internal carotid artery. Normal origin of the right external carotid artery (ECA). LEFT CAROTID ARTERIES: Normal left common carotid artery (CCA). Normal left common carotid bulb. Minor calcific plaquing of the origin of the left internal carotid (ICA) artery without a hemodynamically significant stenosis. Normal visualized cervical portion of the left internal carotid artery. Normal origin of the left external carotid artery (ECA). VERTEBRAL ARTERIES: Right vertebral is dominant and normal caliber. 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 CT/CTA Head AND Neck W/ Contrast IMPRESSION: Mild atherosclerotic disease without evidence for hemodynamically significant stenosis Electronically Signed: oTny Wyatt MD at 18:24 EDT , Service support ,
[2020-05-01 17:07] LABS: Absolute Lymphocyte Count 2.34 X10^3/uL (0.83-4.51); Absolute Neutrophil Count 6.4 X10^3/uL (2.0-7.7); Basophil# 0.03 X10^3/uL; Basophil% 0.3 % (0-1); Eosinophil# 0.36 X10^3/uL; Eosinophils% 3.6 % (0-5); Hematocrit 43.3 % (40-54); Hemoglobin 14.5 g/dL (13.0-16.5); Lymphocyte # 2.34 X10^3/ul (4.0); Lymphocyte % 23.5 % (19-41); Mean Corp Hgb Conc 33.5 g/dL (32-36); Mean Corpuscular Hgb 31.2 pg (27.0-32.0); Mean Corpuscular Volume 93.1 fL (80-94); Mean Platelet Vol. 8.7 fl (6.2-12.0); Monocyte# 0.84 X10^3/uL; Monocyte% 8.4 % (0-10); NRBC Flagged by Analyzer 0 % (0-5); Neutrophil # 6.35 X10^3/uL (2.7-7.7); Neutrophil % 63.8 % (47-70); Platelet Count 243 K/mm3 (150-450); RBC Distribution Width CV 12.7 % (11.6-14.6); RBC Distribution Width SD 43.5 fl (35.1-43.9); Red Blood Count 4.65 M/mm3 (4.6-6.2)
[2020-05-01 17:19] LABS: Prothrombin Time (Protime)PT. 13.1 SECONDS (11.7-14.9)
[2020-05-01 17:20] LABS: Partial Thromboplast Time 26.5 Seconds (24.1-36.2)
[2020-05-01 17:24] LABS: ALB/GLOB Ratio 1.1 RATIO (0.9-2.4); AST(SGOT) 21 U/L (15-37); Alanine Aminotransfer ALT/SGPT 27 U/L (16-61); Albumin, Serum 3.6 g/dL (3.2-5.0); Alkaline Phosphatase 110 U/L (45-117); Anion Gap 7 (5-15); BUN 17 mg/dL (7-18); BUN/Creat Ratio 19.1 RATIO (10-20); Calcium,Total 9.5 mg/dL (8.5-10.1); Chloride 108 mmol/L (98-107); Creatinine, Serum 0.89 mg/dL (0.70-1.30); EST Glomerular Filtration Rate 87 mL/min (>60); Est Glom Filt Rate - Afr Amer 105 mL/min (>60); Estimated Creatinine Clearance 67.21 ml/min; Globulin 3.3 g/dL (2.2-4.2); Glucose 112 mg/dL (74-106); Potassium 3.4 mmol/L (3.5-5.1); Protein, Total 6.9 g/dL (6.4-8.2); Sodium Level 142 mmol/L (136-145)
--- NOTE | 2020-05-01 17:29 | ED.DCSUM_ITS ---
History of Present Illness Chief Complaint: Neuro S/Sx Informant: Patient, Family, Rn Er Onset: Today Narrative: At approximately 1605 per squad the patient called family stating he felt something wrong with his neck and was confused. He notes something seems off w ith his right arm. Patient is unable to provide complete history and we are relying on family. Unfortunately they do not know his medication list are complete medical history. There is been no reported recent surgeries or trauma. There is no reported blood thinners. I called his pharmacy and they deny him being on any medication from them. Family sent pictures of his medications and we do not see a blood thinner. Past Medical History - Allergies and Home Meds Allergies/Adverse Reactions: Allergies Penicillins Allergy (Verified 05/01/20 17:15) Hives adhesive tape Adverse Reaction (Verified 05/01/20 17:15) Other lawton blisters Primary Care Physician: Care Physician,No Primary [Primary Care Provider] - Smoking Status: Former smoker Review of Systems ROS: Unable to Obtain STROKE Vital Signs/Narrative: Vital Signs Temp Pulse Resp BP Pulse Ox 05/01/20 17:13 73 18 157/80 H 95 05/01/20 17:02 98.1 F 66 19 H 144/80 H 95 05/01/20 16:56 98.1 F 147/108 H 05/01/20 16:55 98.1 F 62 19 H 144/80 H 93 05/01/20 16:50 70 17 98 05/01/20 16:43 66 18 155/109 H 98 - NIHSS Initial 1a Level of Consciousness: 0 1b LOC Questions (Score 2 if aphasic/stupor): 1 1c LOC Commands (Only score 1st attempt): 1 2 Best Gaze (If aphasic, use reflexive mvmts.): 0 3 Visual: 0 4 Facial Palsy: 0 5 Motor Arm Right (UN = amputation/fusion): 0 5 Motor Arm Left: 0 6 Motor Leg Right: 0 6 Motor Leg Left: 0 7 Limb ataxia (Only + if out of proportion): 2 8 Sensory (Aphasia/stupor=0 or 1, coma=2): 1 - Patient reports decreased sensation in his face on the right side 9 Best Language: 1 10 Dysarthria (mute, coma=2, intubated=UN): 1 11 Extinction and Inattention (only scored if +): 0 Total Score: 7 General: Well nourished, Well developed Head: Normocephalic, Atraumatic Eyes: Perrl, EOMI ENT: Moist mucous membranes, No rhinorrhea Neck: Supple, Nontender Cardiovascular: Regular rate, Regular rhythm, No murmurs Respiratory: No distress, CTA bilaterally, Chest nontender Abdomen: Soft, Nontender, Nondistended, Normal bowel sounds Back: Nontender, Normal Inspection Extremities: Nontender, No edema Skin: Normal color, No rash Neurological: Alert Diagnostic/Tx/Re-eval Clinical Impression(s) from Imaging Studies Brain CT 05/01/20 16:43 IMPRESSION: Moderate atrophy and periventricular white matter ischemic changes. No evidence for acute bleed. If concern for acute infarct MRI recommended Electronically Signed: Tony Wyatt MD at 16:59 EDT , Service support , ADDENDUM: 05/01/20 1709 IMPRESSION: Moderate atrophy and periventricular white matter ischemic changes. No evidence for acute bleed. If concern for acute infarct MRI recommended N.B. : The above information has been verbally conveyed by Tony Wyatt MD to Loy Walsh MD , , on 05/01/2020 17:02:30 (ET). Electronically Signed: Tony Wyatt MD at 16:59 EDT , Service support , Head/Neck CTA 05/01/20 17:02 IMPRESSION: Mild atherosclerotic disease without evidence for hemodynamically significant stenosis Electronically Signed: Tony Wyatt MD at 18:24 EDT , Service support , Chest X-Ray 05/01/20 18:09 IMPRESSION: Elevated right hemidiaphragm and probable basilar atelectasis. Electronically Signed: Tony Wyatt MD at 18:26 EDT , Service support , Abnormal Lab Results 05/01/20 05/01/20 05/01/20 16:55 16:55 16:55 WBC 10.0 RBC 4.65 Hgb 14.5 Hct 43.3 MCV 93.1 MCH 31.2 MCHC 33.5 RDW Std Deviation 43.5 RDW Coeff of Flora 12.7 Plt Count 243 MPV 8.7 Immature Gran % (Auto) 0.400 Neut % (Auto) 63.8 Lymph % (Auto) 23.5 Pender % (Auto) 8.4 Eos % (Auto) 3.6 Baso % (Auto) 0.3 Absolute Neuts (auto) 6.4 Absolute Lymphs (auto) 2.34 Nucleated RBC % 0 PT 13.1 INR 1.0 APTT 26.5 Sodium 142 Potassium 3.4 L Chloride 108 H Carbon Dioxide 27.0 Anion Gap 7 BUN 17 Creatinine 0.89 Estim Creat Clear Calc 67.21 Est GFR (MDRD) Af Amer 105 Est GFR (MDRD) Non-Af 87 BUN/Creatinine Ratio 19.1 Glucose 112 H Calcium 9.5 Total Bilirubin 0.30 AST 21 ALT 27 Alkaline Phosphatase 110 Troponin I < 0.015 Total Protein 6.9 Albumin 3.6 Globulin 3.3 Albumin/Globulin Ratio 1.1 - EKG Initial EKG Interpretation: Sinus Rhythm - EKG demonstrates a sinus rhythm at a rate of 77 with PVC. No concerning features of ACS. - Medical Decision Making Stroke Team Activated: Yes Reviewed Inclusion/Exclusion criteria: Yes Was Patient considered for Endovascular Intervention?: Yes IV Alteplase (t-PA) Administered: Yes No contraindications for IV Alteplase (t-PA) administration.: Yes Alteplase (t-PA) risks, benefits, alternative discussed: Yes - With family at the bedside Stroke team was called and the patient was taken by EMS cot to the CT scanner. He was brought back to the room. [facility] tele-neurology called in. They are recommending TPA. Initial family member in the room wanted TPA discussed with another family member so we needed to bring another family member back into the room. No obvious contraindications were found. TPA and CTA were ordered. Shows no LVO. Patient will be admitted. Critical care time (excluding procedures): 30-74 minutes - 35 minutes ED Disposition - Plan for ED Patient: Disposition: Acute Care Hospital [facility] Diagnosis: Acute embolic stroke Referrals: Care Physician,No Primary [Primary Care Provider] -
--- NOTE | 2020-05-01 18:09 | RAD_ITS ---
STUDY: X-RAY CHEST REASON FOR EXAM: Male, 80 years old. stroke TECHNIQUE: AP portable COMPARISON: None. FINDINGS: There is elevated right hemidiaphragm and mild right lower lobe atelectasis or infiltrate. There is no demonstrated pleural abnormality. Heart is enlarged. Normal mediastinum and jaime. Normal visualized pulmonary arteries. Normal visualized aortic arch and descending thoracic aorta. Dorsal spine demonstrates mild scoliosis and degenerative changes. There are also degenerative changes and shoulders. Normal visualized ribs, and clavicles. There is no demonstrated abnormality of the visualized soft tissue structures of the upper abdomen. RAD/Chest 1 View IMPRESSION: Elevated right hemidiaphragm and probable basilar atelectasis. Electronically Signed: Tony Wyatt MD at 18:26 EDT , Service support ,
--- NOTE | 2020-05-01 18:13 | PCM.HP.STD ---
Problem List (1) Acute embolic stroke Status: Acute (2) HTN (hypertension) Status: Chronic (3) HLD (hyperlipidemia) Status: Chronic History of Present Illness Date of Admission: 05/01/20 Chief Complaint: altered mental status The patient is a 80 year old M with pmhx of HTN, HLD, who presented to the ER with mental status change. The patient was in his normal state of health, last confirmed normal at abou 1600. At about 1630 he went out to his car and did not feel right. He called his who noted that on the phone he was confused and slurring his words. His daughter called EMS and prevented him from leaving despite that he did not want to talk to EMS. The patient was brought to the ER and stroke alert was called. He received tPA per [facility] tele neuro. He currently is resting in bed with ongoing confusion, slurred speech, difficulty forming sentences, CTA was without acute issues. Following the CTA pts family notes he seems to be speaking better and able to form more coherent sentences. He has ongoing ataxia R>L, slurred speech, parasthesias in the right arm/hand, difficulty reading. Per the patient family the patient has recently stopped taking his meds and is notoriously noncompliant with medical care, and was found recently by a son with a rapid heart rate in the 120s. [] Past Medical History Past Medical History (Chronic Problems): Chronic Problems HTN (hypertension) (Chronic) HLD (hyperlipidemia) (Chronic) Allergies Penicillins Allergy (Verified 05/01/20 17:15) Hives adhesive tape Adverse Reaction (Verified 05/01/20 17:15) Other lawton blisters Home Medications: Ambulatory Orders Medication Instructions Recorded Acetaminophen [Tylenol] 1,000 mg PO TID 11/13/18 Aspirin [Aspir 81] 81 mg PO DAILY 11/13/18 Atorvastatin Calcium [Lipitor] 20 mg PO QHS 11/13/18 Cholecalciferol (VIT D3) [Vitamin 2,000 unit PO DAILY 11/13/18 D3] Atenolol/Chlorthalidone 1 ea PO DAILY 05/01/20 [Atenolol-Chlorthalidone 50-25] Surgical History: - - back surgery Psychiatric History: No pertinent psych hx Lives: With Family Smoking Status: Former smoker Tobacco Use: Non-smoker Alcohol: None Drugs: None Review of Systems Constitutional: Reports: Weakness. Denies: Chills, Fever, Weight Change, Fatigue Eyes: Denies: Blurred vision, Double vision, Vision Change HEENT: Reports: Difficulty Hearing. Denies: Head Aches, Sinus Congestion, Sinus Drainage Cardiovascular: Denies: Chest Pain, Chest Tightness, Edema, Heaviness, Palpitations Respiratory: Denies: Cough, Shortness of breath at rest, Sputum production Gastrointestinal: Denies: Abdominal Pain, Diarrhea, Nausea, Vomiting Genitourinary: Denies: Dysuria, Hesitancy, Urgency Musculoskeletal: Denies: Joint Pain, Joint Tenderness Skin: Denies: Rash, Wounds Neurological: Reports: Change in Speech, Slurred speech, Confusion, Incoordination, Numbness, Tingling. Denies: Blurred vision, Double vision, Focal weakness, Headaches, Tremor, Seizures Psychiatric: Denies: Anxiety, Depression, Homicidal Ideations, Suicidal Ideations Hematologic/ Lymphatic: Denies: Easy Bruising, Easy Bleeding VTE Information - Inpt Only VTE Present on Admission: No VTE Mechan Device Prophylaxis: SCD's, None VTE Pharm Prophylaxis ordered?: No Reason prophylaxis not ordered:: Medical Contraindication Patient Problems: Active and Suspected Problems Acute embolic stroke (Acute) - Physical Exam Vitals/I&O's: Vital Signs Temp Pulse Resp BP Pulse Ox 98.6 F 63 18 142/84 H 95 05/01/20 17:47 05/01/20 17:47 05/01/20 17:47 05/01/20 17:47 05/01/20 17:47 Oxygen Delivery Method Room Air Weight: 210 lb 15.718 oz Body Mass Index (BMI) 30.2 Finger Stick Blood Glucose 90 General: Alert, Oriented x3, Cooperative HEENT: Atraumatic, PERRLA, EOMI, Normocephalic Oral: - - very poor dentition Neck: Supple, No JVD, Negative Carotid Bruits Lungs: Clear to auscultation, Normal air movement Cardiovascular: Regular rate, No murmurs Abdomen: Bowel Sounds Present, Soft, Non Tender Extremities: No edema, Capillary Refill Less than 3 Seconds Skin: No rashes, No breakdown Musculoskeletal: No Tenderness to Palpation of Joints or Extremities Neurological: - - right arm drift, decreased strength right side, point to point poor R>L, slurred speech Psych/Mental Status: Normal Affect, Appropriate Laboratory Results 05/01/20 16:55: WBC 10.0, RBC 4.65, Hgb 14.5, Hct 43.3, MCV 93.1, MCH 31.2, MCHC 33.5, RDW Std Deviation 43.5, RDW Coeff of Flora 12.7, Plt Count 243, MPV 8.7, Immature Gran % (Auto) 0.400, Neut % (Auto) 63.8, Lymph % (Auto) 23.5, [place] % (Auto) 8.4, Eos % (Auto) 3.6, Baso % (Auto) 0.3, Absolute Neuts (auto) 6.4, Absolute Lymphs (auto) 2.34, Nucleated RBC % 0 05/01/20 16:55: PT 13.1, INR 1.0, APTT 26.5 05/01/20 16:55: Sodium 142, Potassium 3.4 L, Chloride 108 H, Carbon Dioxide 27.0, Anion Gap 7, BUN 17, Creatinine 0.89, Estim Creat Clear Calc 67.21, Est GFR (MDRD) Af Amer 105, Est GFR (MDRD) Non-Af 87, BUN/Creatinine Ratio 19.1, Glucose 112 H, Calcium 9.5, Total Bilirubin 0.30, AST 21, ALT 27, Alkaline Phosphatase 110, Troponin I < 0.015, Total Protein 6.9, Albumin 3.6, Globulin 3.3, Albumin/Globulin Ratio 1.1 Current Medications Acetaminophen (Tylenol) 650 mg PO .X1 PRN PRN Reason: Temp > 99.6 F Diphenhydramine HCl (Benadryl) 50 mg IV .X1 PRN PRN Reason: Allergic Reaction Stop: 05/03/20 17:02 Epinephrine HCl () 0.3 mg IM .X1 PRN PRN Reason: Allergic Reaction Stop: 05/03/20 17:02 Sodium Chloride () 1,000 mls @ 100 mls/hr IV .Q10H CAROLYN Famotidine 20 mg/ Sodium (Chloride) 10 mls @ 300 mls/hr IV .X1 PRN PRN Reason: Allergic Reaction Stop: 05/03/20 17:02 Nicardipine/Dextrose (Cardene-Dex 20 Mg/200 Ml Soln) 20 mg in 200 mls @ 50 mls/hr IV .Q4H PRN; Protocol PRN Reason: See Instructions Iopamidol (Contrast Allergy Check) 0 ml IV X1 CAROLYN Labetalol HCl (Trandate) 20 mg IV X1 PRN PRN Reason: BLOOD PRESSURE Labetalol HCl (Trandate) 20 mg IV X1 PRN; Protocol PRN Reason: BLOOD PRESSURE Methylprednisolone (Solu-Medrol) 125 mg IV .X1 PRN PRN Reason: Allergic Reaction Stop: 05/03/20 17:02 Assessment/Plan All Active Problems Acute embolic stroke (Acute) 1. Acute embolic stroke s/p tPA - CT brain neg and [facility] tele neuro recommended tPA which was given. Now with ongoing right sided issues notably parasthesias and ataxia, and slurred speech. Per family his speech seems to be improving. Pt noncompliant with home meds, stopped taking meds recently. Sons noted he has been having racing heart recently, so suspect afib. EKG with sinus rhythm and PVCs. Continue NIHSS, pt to ICU overnight. MRI tomorrow, consult neuro for follow up care, obtain Echo in AM. PT OT ST evals. Check FLP, Hgb a1C, mag, tsh. 2. HTN - permissive. pt stopped taking atenolol/chlorthalidone. 3. HLD - has not been taking his statin. check AM FLP DVT ppx: SCDs DC planning May need SNF. is debilitated at home. This patient was seen by Jos Wayne PA-C under the supervision of Dr. Arevalo.
[2020-05-01] MEDS: 0.9% Normal Saline 1,000 ML 100 ML IV ×2 (18:17→19:40)
--- NOTE | 2020-05-01 18:25 | CM.ED ---
Social Work Responding to stroke alert, initially no family present. Family present now. Support provided. Arnoldo DICKEY, AMARILYS
--- NOTE | 2020-05-01 18:52 | ED.RN ---
TPA finished infusing at 183 and flush bag started at this time- see DEC.
--- NOTE | 2020-05-01 19:52 | ECHOD_ITS ---
Reason For Study: ARRHYTHMIA Procedure This was a 2D Doppler, Color Flow transthoracic echocardiogram. The study was technically difficult. Exam performed portable in ICU/CCU. Left Ventricle Normal LV size. Left ventricular systolic function is normal. The estimated ejection fraction is 60 %. There is evidence of diastolic dysfunction. No regional wall motion abnormalities noted. Right Ventricle Normal RV size. A calcified moderator band is seen in the right ventricle. Normal systolic function. Atria The left atrium is mildly enlarged. Normal right atrium. No doppler evidence for ASD. Bubble contrast study negative for right to left interatrial shunt. Mitral Valve There is no mitral annular calcification. Mild diffuse mitral valve thickening. Mild (1+) mitral valve insufficiency. Tricuspid Valve Normal tricuspid valve. Mild (1+) tricuspid valve insufficiency. Right ventricular systolic pressure estimated to be 38 mmHg. Aortic Valve Trisinus/trileaflet aortic valve. Mild focal aortic valve calcification. Pulmonic Valve The pulmonic valve is not well visualized. Great Vessels Mildly dilated aortic root. Pericardium/Pleural No pericardial effusion. Medication Performed a rapid injection of agitated mix of 9 cc saline and 1cc air to assess for atrial septal defect. MMode/2D Measurements & Calculations LVIDd: 4.0 cm IVSd: 1.0 cm LVOT diam: 2.0 cm LVIDs: 2.7 cm LVPWd: 1.00 cm FS: 31.9 % LVOT area: 3.0 cm2 Ao root diam: 4.1 cm LAV(MOD-sp4): 53.4 ml LVAd ap4: 28.3 cm2 EDV(MOD-sp4): 83.2 ml EDV(sp4-el): 86.4 ml LVAs ap4: 15.3 cm2 ESV(MOD-sp4): 30.7 ml ESV(sp4-el): 31.2 ml EF(MOD-sp4): 63.1 % EF(sp4-el): 63.9 % SV(MOD-sp4): 52.5 ml SV(sp4-el): 55.2 ml Aortic Valve Planimetry: 2.1 cm2 LA A4 area: 18.7 cm2 LA dimension(2D): 4.7 cm RA A4 area: 19.6 cm2 Time Measurements MV dec time: 0.33 sec Doppler Measurements & Calculations MV E max derrek: 78.8 cm/sec Lat Peak E' Derrek: 5.9 cm/sec Med Peak E' Derrek: 4.6 cm/sec MV A max derrek: 128.4 cm/sec E/E' lat: 13.4 E/E' med: 17.2 MV E/A: 0.61 Ao V2 max: 148.3 cm/sec LV V1 max: 98.2 cm/sec SV(LVOT): 69.7 ml Ao max P.8 mmHg LV V1 max P.9 mmHg Ao V2 mean: 101.9 cm/sec LV V1 mean P.6 mmHg Ao mean P.6 mmHg LV V1 mean: 59.2 cm/sec Ao V2 VTI: 33.1 cm LV V1 VTI: 23.0 cm KESHIA(I,D): 2.1 cm2 KESHIA(V,D): 2.0 cm2 PA V2 max: 81.7 cm/sec TR max derrek: 291.4 cm/sec TR max P.0 mmHg Interpretation Summary The study was technically difficult. Left ventricular systolic function is normal. The estimated ejection fraction is 60 %. A calcified moderator band is seen in the right ventricle. The left atrium is mildly enlarged. Mild diffuse mitral valve thickening. Mild (1+) mitral valve insufficiency. Mild (1+) tricuspid valve insufficiency. Mild focal aortic valve calcification. Mildly dilated aortic root. Right ventricular systolic pressure estimated to be 38 mmHg. There is evidence of diastolic dysfunction. Bubble contrast study negative for right to left interatrial shunt. Ordering Physician: Macey Arevalo Performed By: Prachi Valdes, FARIHACS, RVT
[2020-05-01 20:32] LABS: T4 Free Direct 1.02 ng/dL (0.76-1.46); Thyroid Stim Hormone (TSH) 1.16 uIU/mL (0.358-3.74)
[2020-05-01] MEDS: Potassium Chloride 10mEq/100mL 10 MEQ/100 ML IV.SOLN. 100 MEQ IV BOLUS ×3 (21:53→23:48)
[2020-05-02] VITALS (33 sets, daily range): BP systolic 100–161; BP diastolic 62–108; PULSE 54–69; RESP 15–24; TEMP 36.2–36.8; O2SAT 93–99; BMI 32.4
[2020-05-02] MEDS: Potassium Chloride 10mEq/100mL 10 MEQ/100 ML IV.SOLN. 100 MEQ IV BOLUS (00:47)
[2020-05-02] MEDS: 0.9% Normal Saline 1,000 ML 100 ML IV ×2 (01:52→11:07)
[2020-05-02 04:39] LABS: Absolute Lymphocyte Count 1.52 X10^3/uL (0.83-4.51); Absolute Neutrophil Count 6.1 X10^3/uL (2.0-7.7); Basophil# 0.04 X10^3/uL; Basophil% 0.5 % (0-1); Eosinophil# 0.36 X10^3/uL; Eosinophils% 4.1 % (0-5); Hemoglobin 13.7 g/dL (13.0-16.5); Lymphocyte # 1.52 X10^3/ul (4.0); Lymphocyte % 17.3 % (19-41); Mean Corp Hgb Conc 33.4 g/dL (32-36); Mean Corpuscular Hgb 31.6 pg (27.0-32.0); Mean Corpuscular Volume 94.7 fL (80-94); Mean Platelet Vol. 8.8 fl (6.2-12.0); Monocyte# 0.77 X10^3/uL; Monocyte% 8.7 % (0-10); NRBC Flagged by Analyzer 0 % (0-5); Neutrophil # 6.08 X10^3/uL (2.7-7.7); Neutrophil % 68.9 % (47-70); Platelet Count 182 K/mm3 (150-450); RBC Distribution Width CV 12.7 % (11.6-14.6); Red Blood Count 4.33 M/mm3 (4.6-6.2); White Blood Count 8.8 K/mm3 (4.4-11.0)
[2020-05-02] MEDS: proCHLORPERazine 10 MG/2 ML Vial 5 MG IV (04:39)
--- NOTE | 2020-05-02 04:47 | NURSING ---
During assessment, pt stated a feeling of nausea and reports SOB. Lungs clear, VSS, no obvious changes in telemetry. Pt denies chest pain or shoulder pain, O2 sat maintained at 96% on RA. EKG is ordered for this a.m.
[2020-05-02 05:00] LABS: Albumin, Serum 3.2 g/dL (3.2-5.0); BUN 13 mg/dL (7-18); BUN/Creat Ratio 17.7 RATIO (10-20); Creatinine, Serum 0.73 mg/dL (0.70-1.30); EST Glomerular Filtration Rate 109 mL/min (>60); Est Glom Filt Rate - Afr Amer 132 mL/min (>60); Estimated Creatinine Clearance 54.17 ml/min; Glucose 114 mg/dL (74-106); Protein, Total 6.2 g/dL (6.4-8.2)
[2020-05-02 05:01] LABS: ALB/GLOB Ratio 1.1 RATIO (0.9-2.4); AST(SGOT) 22 U/L (15-37); Alanine Aminotransfer ALT/SGPT 25 U/L (16-61); Alkaline Phosphatase 99 U/L (45-117); Anion Gap 2 (5-15); Calcium,Total 8.9 mg/dL (8.5-10.1); Chloride 110 mmol/L (98-107); Cholesterol 147 mg/dL (200); High Density Lipoprotein 33 mg/dL; Potassium 3.7 mmol/L (3.5-5.1); Sodium Level 140 mmol/L (136-145); Triglycerides 124 mg/dL; Very Low Density Lipoprotein 25 mg/dL (5-40)
--- NOTE | 2020-05-02 05:55 | EKG12_ITS ---
Test Reason : AM EKG Blood Pressure : / mmHG Vent. Rate : 058 BPM Atrial Rate : 058 BPM P-R Int : 176 ms QRS Dur : 078 ms QT Int : 476 ms P-R-T Axes : -08 059 050 degrees QTc Int : 467 ms Sinus bradycardia with marked sinus arrhythmia Otherwise normal ECG When compared with ECG of 01-MAY-2020 16:57, MANUAL COMPARISON REQUIRED, DATA IS UNCONFIRMED Confirmed by CHAYITO GARCIA ([id number]), medical transcription editor ANGELA DOYLE ([id number]) on 05/04/2020 11:33:30 AM Referred By: VALENTINA Confirmed By:CHAYITO GARCIA
--- NOTE | 2020-05-02 08:58 | PCM.PROGNOTE ---
Patient Problems: Active and Suspected Problems Acute stroke (Acute) Subjective: Chief complaint: Follow-up after admission for acute stroke. Patient seen and examined. No acute events overnight. This morning, he is alert, oriented x3, knew his full name, date of , date and location. He is kind of slow in thinking. He was talking fluently, no slurred speech. He has no focal deficit on physical examination. He is afebrile, heart rate has been in the high 50s, blood pressure slightly elevated, pulse ox is 95% on room air. - Physical Exam Vitals/I&O's: Vital Signs Temp Pulse Resp BP Pulse Ox 97.5 F L 57 L 18 156/86 H 95 05/02/20 08:15 05/02/20 08:15 05/02/20 08:15 05/02/20 08:15 05/02/20 08:15 Oxygen Delivery Method Room Air Weight: 208 lb 5.389 oz Body Mass Index (BMI) 32.4 Finger Stick Blood Glucose 90 Intake and Output for Last 24 Hours 04/30/20 05/01/20 05/02/20 23:59 23:59 23:59 Intake Total 430.00 / 863.33 1193.33 / 1193.33 Output Total 350 / 350 560 / 560 Balance 80.00 / 513.33 633.33 / 633.33 General: Alert, Oriented x3, Cooperative, No apparent distress HEENT: Atraumatic, PERRLA, EOMI, Normocephalic Oral: Moist Mucosa, No Gingival or Mucosal Lesions/ Ulcerations Neck: Supple, No JVD, Negative Carotid Bruits, Trachea Midline, Thyroid Normal Size and Texture Lungs: Clear to auscultation, Normal air movement, No rhonchi, No wheeze, No rales, Diminished Cardiovascular: Regular rate, Regular Rhythm, Normal S1, Normal S2, PMI Normal Abdomen: Bowel Sounds Present, Soft, Non Tender, Non-Distended, No Hepato-splenomegaly Extremities: No clubbing, No cyanosis, No edema Skin: No rashes, No breakdown Lymphatic: No Cervical, Supraclavicular, or Inguinal Adenopathy Neurological: Cranial nerves II-XII grossly intact, Motor Exam 5/5 strength throughout Psych/Mental Status: Appropriate, Flat Affect, Alert and oriented to time, place, person, mood and affect Laboratory Results 05/01/20 16:55: WBC 10.0, RBC 4.65, Hgb 14.5, Hct 43.3, MCV 93.1, MCH 31.2, MCHC 33.5, RDW Std Deviation 43.5, RDW Coeff of Flora 12.7, Plt Count 243, MPV 8.7, Immature Gran % (Auto) 0.400, Neut % (Auto) 63.8, Lymph % (Auto) 23.5, [place] % (Auto) 8.4, Eos % (Auto) 3.6, Baso % (Auto) 0.3, Absolute Neuts (auto) 6.4, Absolute Lymphs (auto) 2.34, Nucleated RBC % 0 05/01/20 16:55: PT 13.1, INR 1.0, APTT 26.5 05/01/20 16:55: Sodium 142, Potassium 3.4 L, Chloride 108 H, Carbon Dioxide 27.0, Anion Gap 7, BUN 17, Creatinine 0.89, Estim Creat Clear Calc 67.21, Est GFR (MDRD) Af Amer 105, Est GFR (MDRD) Non-Af 87, BUN/Creatinine Ratio 19.1, Glucose 112 H, Calcium 9.5, Total Bilirubin 0.30, AST 21, ALT 27, Alkaline Phosphatase 110, Troponin I < 0.015, Total Protein 6.9, Albumin 3.6, Globulin 3.3, Albumin/Globulin Ratio 1.1 05/01/20 16:55: Magnesium 2.0, TSH 1.16, Free T4 1.02 05/01/20 16:55: Hemoglobin A1c 6.0 H 05/02/20 04:30: WBC 8.8, RBC 4.33 L, Hgb 13.7, Hct 41.0, MCV 94.7 H, MCH 31.6, MCHC 33.4, RDW Std Deviation 44.0 H, RDW Coeff of Flora 12.7, Plt Count 182, MPV 8.8, Immature Gran % (Auto) 0.500, Neut % (Auto) 68.9, Lymph % (Auto) 17.3 L, [place] % (Auto) 8.7, Eos % (Auto) 4.1, Baso % (Auto) 0.5, Absolute Neuts (auto) 6.1, Absolute Lymphs (auto) 1.52, Nucleated RBC % 0 05/02/20 04:30: Sodium 140, Potassium 3.7, Chloride 110 H, Carbon Dioxide 28.0, Anion Gap 2 L, BUN 13, Creatinine 0.73, Estim Creat Clear Calc 54.17, Est GFR (MDRD) Af Amer 132, Est GFR (MDRD) Non-Af 109, BUN/Creatinine Ratio 17.7, Glucose 114 H, Calcium 8.9, Total Bilirubin 0.60, AST 22, ALT 25, Alkaline Phosphatase 99, Total Protein 6.2 L, Albumin 3.2, Globulin 3.0, Albumin/Globulin Ratio 1.1, Triglycerides 124, Cholesterol 147, LDL Cholesterol 89, VLDL Cholesterol 25, HDL Cholesterol 33 L Clinical Impression(s) from Imaging Studies Brain CT 05/01/20 16:43 IMPRESSION: Moderate atrophy and periventricular white matter ischemic changes. No evidence for acute bleed. If concern for acute infarct MRI recommended Electronically Signed: Tony Wyatt MD at 16:59 EDT , Service support , ADDENDUM: 05/01/20 1709 IMPRESSION: Moderate atrophy and periventricular white matter ischemic changes. No evidence for acute bleed. If concern for acute infarct MRI recommended N.B. : The above information has been verbally conveyed by Tony Wyatt MD to Loy Walsh MD , MD, on 05/01/2020 17:02:30 (ET). Electronically Signed: Tony Wyatt MD at 16:59 EDT , Service support , Head/Neck CTA 05/01/20 17:02 IMPRESSION: Mild atherosclerotic disease without evidence for hemodynamically significant stenosis Electronically Signed: Tony Wyatt MD at 18:24 EDT , Service support , ADDENDUM: 05/01/20 1841 IMPRESSION: Mild atherosclerotic disease without evidence for hemodynamically significant stenosis N.B. : The above information has been verbally conveyed by Tony Wyatt MD to Loy Walsh MD , , on 05/01/2020 18:34:24 (ET). Electronically Signed: Tony Wyatt MD at 18:24 EDT , Service support , Chest X-Ray 05/01/20 18:09 IMPRESSION: Elevated right hemidiaphragm and probable basilar atelectasis. Electronically Signed: Tony Wyatt MD at 18:26 EDT , Service support , Current Medications Acetaminophen (Tylenol) 650 mg PO .X1 PRN PRN Reason: Temp > 99.6 F Acetaminophen (Tylenol) 650 mg PO Q6H PRN PRN PRN Reason: Pain Score 1-10/Temp > 100.7 F Al Hydroxide/Mg Hydroxide (Mylanta Ii) 30 ml PO Q6H PRN PRN PRN Reason: Gastric Burning Albuterol Sulfate (Ventolin Aerosols) 2.5 mg INHALATION Q2H PRN PRN PRN Reason: Dyspnea, wheezing Atorvastatin Calcium (Lipitor) 20 mg PO QHS REPLACED BY [facility] Last Admin: 05/01/20 21:08 Dose: Not Given Documented by: Dextrose (D50w Syringe) 0 gm IV X1 PRN; Protocol PRN Reason: Hypoglycemia Diphenhydramine HCl (Benadryl) 50 mg IV .X1 PRN PRN Reason: Allergic Reaction Stop: 05/03/20 17:02 Epinephrine HCl () 0.3 mg IM .X1 PRN PRN Reason: Allergic Reaction Stop: 05/03/20 17:02 Famotidine (Pepcid) 20 mg PO BID REPLACED BY [facility] Last Admin: 05/01/20 21:08 Dose: Not Given Documented by: Glucagon () 1 mg IM .X1 PRN PRN Reason: Hypoglycemia Guaifenesin (Robitussin) 10 ml PO Q4H PRN PRN PRN Reason: COUGH Famotidine 20 mg/ Sodium (Chloride) 10 mls @ 300 mls/hr IV .X1 PRN PRN Reason: Allergic Reaction Stop: 05/03/20 17:02 Nicardipine/Dextrose (Cardene-Dex 20 Mg/200 Ml Soln) 20 mg in 200 mls @ 50 mls/hr IV .Q4H PRN; Protocol PRN Reason: See Instructions Sodium Chloride () 1,000 mls @ 100 mls/hr IV .Q10H CAROLYN Last Infusion: 05/02/20 05:37 Dose: 100 mls/hr Documented by: Labetalol HCl (Trandate) 20 mg IV X1 PRN PRN Reason: BLOOD PRESSURE Labetalol HCl (Trandate) 20 mg IV X1 PRN; Protocol PRN Reason: BLOOD PRESSURE Magnesium Hydroxide (Milk Of Magnesia) 30 ml PO DAILY PRN PRN PRN Reason: Constipation Melatonin (Melatonin) 3 mg PO QHS PRN PRN PRN Reason: INSOMNIA Methylprednisolone (Solu-Medrol) 125 mg IV .X1 PRN PRN Reason: Allergic Reaction Stop: 05/03/20 17:02 Morphine Sulfate () 2 mg IV Q3H PRN PRN PRN Reason: Pain Score 6-10/10 Nitroglycerin (Nitrostat) 0.4 mg SUBLINGUAL Q5M PRN PRN Reason: CARDIAC/CHEST PAIN Ondansetron HCl (Zofran) 4 mg IV Q8H PRN PRN PRN Reason: NAUSEA/VOMITING Oxycodone HCl (Oxyir) 5 mg PO Q4H PRN PRN PRN Reason: Pain Score 4-5/10 Prochlorperazine Edisylate (Compazine Iv) 5 mg IV Q4H PRN PRN PRN Reason: Breakthrough Nausea/Vomiting Last Admin: 05/02/20 04:39 Dose: 5 mg Documented by: Psyllium Hydrophilic Mucilloid (Metamucil) 1 packet PO DAILY PRN PRN PRN Reason: Constipation Senna/Docusate Sodium (Senokot-S, Naum-Colace) 2 tablet PO BID PRN PRN Reason: Constipation Sodium Chloride () 10 - 40 ml IV UD PRN PRN Reason: SALINE FLUSH Throat Lozenges (Cepacol Sore Throat Lozenge) 1 lozenge MUCOUS MEM Q2H PRN PRN PRN Reason: SORE THROAT Medical Necessity - Tobacco Use Smoking Status: Former smoker Tobacco Use: Cigarettes Assessment/Plan All Active Problems Acute stroke (Acute) This is an 80 years old male patient presented to the emergency room because of altered mental status and reportedly, he has been having dysarthria and right arm weakness, was seen by [facility] tele-neurology in the ED and recommended TPA for acute stroke and he was admitted for evaluation and treatment. #1 acute stroke status post TPA: Likely ischemic stroke. Today, patient is alert and treated x3, speech is more fluent and coherent but delayed, has no focal weakness in his arms or legs. He is on statins. Vital signs are stable, blood pressure under control. Routine blood work was unremarkable. EKG was unremarkable as well. TSH, magnesium and LFT was normal. Hemoglobin A1c was 6% consistent with prediabetes, blood sugar has been under control. CTA of the head and neck revealed mild atherosclerotic disease without evidence of hemodynamically significant vascular disease or stenosis. MRI brain and 2D echocardiogram ordered. Plan to repeat CT scan brain at 5 PM after 24 hours of TPA. #2 hypertension: Blood pressure stable, home blood pressure medications are on hold. #3 hyperlipidemia: On statins. Lipid profile reviewed. #4 DVT prophylaxis: Status post TPA. This note was generated with [employer] dictation software. It may contain incorrect words, spelling, and punctuation that were not noted in checking the note before signing. Inpatient E&M: 26757 Subs Hosp L2
--- NOTE | 2020-05-02 09:39 | CON.PCM_ITS ---
Reason for Consult Date of Consultation: 05/02/20 Reason for Consultation: CVA status post TPA History of Present Illness: The patient is an 80-year-old male, with a history as outlined below, who presented to the emergency department on May 01 with altered mentation. He was apparently also experiencing dysarthria. On presentation to the emergency department, the patient was noted to be afebrile and hemodynamically stable. He was maintaining appropriate oxygen saturations on room air. Laboratory evaluation revealed a normal CBC with differential. Coagulation profile was within normal limits. Chemistry profile was notable for a potassium of 3.4. Due to the patient's presenting symptoms, a stroke alert was called. CT head was obtained which revealed moderate atrophy and periventricular white matter ischemic changes. CTA head and neck failed to demonstrate evidence for hemodynamically significant stenosis. The patient was documented to have an initial NIH score of 7. Telemetry neurology consultation was obtained and TPA was felt to be indicated. Following TPA administration, the patient was admitted to the medical intensive care unit for further management. Past Medical History Past Medical History (Chronic Problems): Chronic Problems HTN (hypertension) (Chronic) HLD (hyperlipidemia) (Chronic) Allergies Penicillins Allergy (Verified 05/01/20 17:15) Hives adhesive tape Adverse Reaction (Verified 05/01/20 17:15) Other [place] blisters Home Medications: Ambulatory Orders Medication Instructions Recorded Acetaminophen [Tylenol] 1,000 mg PO TID 11/13/18 Aspirin [Aspir 81] 81 mg PO DAILY 11/13/18 Atorvastatin Calcium [Lipitor] 20 mg PO QHS 11/13/18 Cholecalciferol (VIT D3) [Vitamin 2,000 unit PO DAILY 11/13/18 D3] Atenolol/Chlorthalidone 1 ea PO DAILY 05/01/20 [Atenolol-Chlorthalidone 50-25] Surgical History: - - back surgery Psychiatric History: No pertinent psych hx Lives: With Family Smoking Status: Former smoker Tobacco Use: Cigarettes Alcohol: None Drugs: None Review of Systems Constitutional: Reports: Weakness. Denies: Chills, Fever Eyes: Denies: Blurred vision HEENT: Reports: Difficulty Hearing Cardiovascular: Denies: Chest Pain, Palpitations Respiratory: Denies: Cough, Shortness of breath at rest, Sputum production Gastrointestinal: Denies: Abdominal Pain, Nausea, Vomiting Genitourinary: Denies: Dysuria Musculoskeletal: Denies: Joint Pain, Joint Tenderness Skin: Denies: Rash, Wounds Neurological: Reports: Change in Speech, Confusion Psychiatric: Denies: Anxiety, Depression, Homicidal Ideations, Suicidal Ideations Hematologic/ Lymphatic: Denies: Easy Bruising, Easy Bleeding Patient Problems: Active and Suspected Problems Acute stroke (Acute) Objective: The patient's most recent lab work, culture data and imaging studies have all been personally reviewed. - Physical Exam Vitals/I&O's: Vital Signs Temp Pulse Resp BP Pulse Ox 97.6 F L 55 L 16 123/66 H 93 05/02/20 09:15 05/02/20 09:15 05/02/20 09:15 05/02/20 09:15 05/02/20 09:15 Oxygen Delivery Method Room Air Weight: 208 lb 5.389 oz Body Mass Index (BMI) 32.4 Finger Stick Blood Glucose 90 Intake and Output for Last 24 Hours 04/30/20 05/01/20 05/02/20 23:59 23:59 23:59 Intake Total 430.00 / 863.33 1193.33 / 1193.33 Output Total 350 / 350 560 / 560 Balance 80.00 / 513.33 633.33 / 633.33 General: Alert, Cooperative, No apparent distress HEENT: Atraumatic, Normocephalic Oral: No Gingival or Mucosal Lesions/ Ulcerations Neck: Supple, No Nodes, Trachea Midline Lungs: Normal air movement, No rhonchi, No wheeze, No rales Cardiovascular: Regular rate, Regular Rhythm Abdomen: Bowel Sounds Present, Soft, Non Tender Extremities: No clubbing, No cyanosis, No edema Skin: No breakdown Musculoskeletal: No Tenderness to Palpation of Joints or Extremities, No Muscle Wasting Lymphatic: No Cervical, Supraclavicular, or Inguinal Adenopathy Neurological: - - No focal neurological deficits. Psych/Mental Status: Normal Affect, Appropriate Labs (Last 48 Hours) 05/01/20 05/01/20 05/01/20 16:55 16:55 16:55 WBC 10.0 RBC 4.65 Hgb 14.5 Hct 43.3 MCV 93.1 MCH 31.2 MCHC 33.5 RDW Std Deviation 43.5 RDW Coeff of Flora 12.7 Plt Count 243 MPV 8.7 Immature Gran % (Auto) 0.400 Neut % (Auto) 63.8 Lymph % (Auto) 23.5 [place] % (Auto) 8.4 Eos % (Auto) 3.6 Baso % (Auto) 0.3 Absolute Neuts (auto) 6.4 Absolute Lymphs (auto) 2.34 Nucleated RBC % 0 PT 13.1 INR 1.0 APTT 26.5 Sodium 142 Potassium 3.4 L Chloride 108 H Carbon Dioxide 27.0 Anion Gap 7 BUN 17 Creatinine 0.89 Estim Creat Clear Calc 67.21 Est GFR (MDRD) Af Amer 105 Est GFR (MDRD) Non-Af 87 BUN/Creatinine Ratio 19.1 Glucose 112 H Hemoglobin A1c Calcium 9.5 Magnesium Total Bilirubin 0.30 AST 21 ALT 27 Alkaline Phosphatase 110 Troponin I < 0.015 Total Protein 6.9 Albumin 3.6 Globulin 3.3 Albumin/Globulin Ratio 1.1 Triglycerides Cholesterol LDL Cholesterol VLDL Cholesterol HDL Cholesterol TSH Free T4 05/01/20 05/01/20 05/02/20 16:55 16:55 04:30 WBC 8.8 RBC 4.33 L Hgb 13.7 Hct 41.0 MCV 94.7 H MCH 31.6 MCHC 33.4 RDW Std Deviation 44.0 H RDW Coeff of Flora 12.7 Plt Count 182 MPV 8.8 Immature Gran % (Auto) 0.500 Neut % (Auto) 68.9 Lymph % (Auto) 17.3 L [place] % (Auto) 8.7 Eos % (Auto) 4.1 Baso % (Auto) 0.5 Absolute Neuts (auto) 6.1 Absolute Lymphs (auto) 1.52 Nucleated RBC % 0 PT INR APTT Sodium Potassium Chloride Carbon Dioxide Anion Gap BUN Creatinine Estim Creat Clear Calc Est GFR (MDRD) Af Amer Est GFR (MDRD) Non-Af BUN/Creatinine Ratio Glucose Hemoglobin A1c 6.0 H Calcium Magnesium 2.0 Total Bilirubin AST ALT Alkaline Phosphatase Troponin I Total Protein Albumin Globulin Albumin/Globulin Ratio Triglycerides Cholesterol LDL Cholesterol VLDL Cholesterol HDL Cholesterol TSH 1.16 Free T4 1.02 05/02/20 04:30 WBC RBC Hgb Hct MCV MCH MCHC RDW Std Deviation RDW Coeff of Flora Plt Count MPV Immature Gran % (Auto) Neut % (Auto) Lymph % (Auto) [place] % (Auto) Eos % (Auto) Baso % (Auto) Absolute Neuts (auto) Absolute Lymphs (auto) Nucleated RBC % PT INR APTT Sodium 140 Potassium 3.7 Chloride 110 H Carbon Dioxide 28.0 Anion Gap 2 L BUN 13 Creatinine 0.73 Estim Creat Clear Calc 54.17 Est GFR (MDRD) Af Amer 132 Est GFR (MDRD) Non-Af 109 BUN/Creatinine Ratio 17.7 Glucose 114 H Hemoglobin A1c Calcium 8.9 Magnesium Total Bilirubin 0.60 AST 22 ALT 25 Alkaline Phosphatase 99 Troponin I Total Protein 6.2 L Albumin 3.2 Globulin 3.0 Albumin/Globulin Ratio 1.1 Triglycerides 124 Cholesterol 147 LDL Cholesterol 89 VLDL Cholesterol 25 HDL Cholesterol 33 L TSH Free T4 Clinical Impression(s) from Imaging Studies Brain CT 05/01/20 16:43 IMPRESSION: Moderate atrophy and periventricular white matter ischemic changes. No evidence for acute bleed. If concern for acute infarct MRI recommended Electronically Signed: Tony Wyatt MD at 16:59 EDT , Service support , ADDENDUM: 05/01/20 1709 IMPRESSION: Moderate atrophy and periventricular white matter ischemic changes. No evidence for acute bleed. If concern for acute infarct MRI recommended N.B. : The above information has been verbally conveyed by Tony Wyatt MD to Loy Walsh MD , MD, on 05/01/2020 17:02:30 (ET). Electronically Signed: Tony Wyatt MD at 16:59 EDT , Service support , Head/Neck CTA 05/01/20 17:02 IMPRESSION: Mild atherosclerotic disease without evidence for hemodynamically significant stenosis Electronically Signed: Tony Wyatt MD at 18:24 EDT , Service support , ADDENDUM: 05/01/20 1841 IMPRESSION: Mild atherosclerotic disease without evidence for hemodynamically significant stenosis N.B. : The above information has been verbally conveyed by Tony Wyatt MD to Loy Walsh MD , , on 05/01/2020 18:34:24 (ET). Electronically Signed: Tony Wyatt MD at 18:24 EDT , Service support , Chest X-Ray 05/01/20 18:09 IMPRESSION: Elevated right hemidiaphragm and probable basilar atelectasis. Electronically Signed: Tony Wyatt MD at 18:26 EDT , Service support , Current Medications Acetaminophen (Tylenol) 650 mg PO .X1 PRN PRN Reason: Temp > 99.6 F Acetaminophen (Tylenol) 650 mg PO Q6H PRN PRN PRN Reason: Pain Score 1-10/Temp > 100.7 F Al Hydroxide/Mg Hydroxide (Mylanta Ii) 30 ml PO Q6H PRN PRN PRN Reason: Gastric Burning Albuterol Sulfate (Ventolin Aerosols) 2.5 mg INHALATION Q2H PRN PRN PRN Reason: Dyspnea, wheezing Atorvastatin Calcium (Lipitor) 20 mg PO QHS [facility] Last Admin: 05/01/20 21:08 Dose: Not Given Documented by: Dextrose (D50w Syringe) 0 gm IV X1 PRN; Protocol PRN Reason: Hypoglycemia Diphenhydramine HCl (Benadryl) 50 mg IV .X1 PRN PRN Reason: Allergic Reaction Stop: 05/03/20 17:02 Epinephrine HCl () 0.3 mg IM .X1 PRN PRN Reason: Allergic Reaction Stop: 05/03/20 17:02 Famotidine (Pepcid) 20 mg PO BID [facility] Last Admin: 05/01/20 21:08 Dose: Not Given Documented by: Glucagon () 1 mg IM .X1 PRN PRN Reason: Hypoglycemia Guaifenesin (Robitussin) 10 ml PO Q4H PRN PRN PRN Reason: COUGH Famotidine 20 mg/ Sodium (Chloride) 10 mls @ 300 mls/hr IV .X1 PRN PRN Reason: Allergic Reaction Stop: 05/03/20 17:02 Nicardipine/Dextrose (Cardene-Dex 20 Mg/200 Ml Soln) 20 mg in 200 mls @ 50 mls/hr IV .Q4H PRN; Protocol PRN Reason: See Instructions Sodium Chloride () 1,000 mls @ 100 mls/hr IV .Q10H CAROLYN Last Infusion: 05/02/20 05:37 Dose: 100 mls/hr Documented by: Labetalol HCl (Trandate) 20 mg IV X1 PRN PRN Reason: BLOOD PRESSURE Labetalol HCl (Trandate) 20 mg IV X1 PRN; Protocol PRN Reason: BLOOD PRESSURE Magnesium Hydroxide (Milk Of Magnesia) 30 ml PO DAILY PRN PRN PRN Reason: Constipation Melatonin (Melatonin) 3 mg PO QHS PRN PRN PRN Reason: INSOMNIA Methylprednisolone (Solu-Medrol) 125 mg IV .X1 PRN PRN Reason: Allergic Reaction Stop: 05/03/20 17:02 Morphine Sulfate () 2 mg IV Q3H PRN PRN PRN Reason: Pain Score 6-10/10 Nitroglycerin (Nitrostat) 0.4 mg SUBLINGUAL Q5M PRN PRN Reason: CARDIAC/CHEST PAIN Ondansetron HCl (Zofran) 4 mg IV Q8H PRN PRN PRN Reason: NAUSEA/VOMITING Oxycodone HCl (Oxyir) 5 mg PO Q4H PRN PRN PRN Reason: Pain Score 4-5/10 Prochlorperazine Edisylate (Compazine Iv) 5 mg IV Q4H PRN PRN PRN Reason: Breakthrough Nausea/Vomiting Last Admin: 05/02/20 04:39 Dose: 5 mg Documented by: Psyllium Hydrophilic Mucilloid (Metamucil) 1 packet PO DAILY PRN PRN PRN Reason: Constipation Senna/Docusate Sodium (Senokot-S, Anum-Colace) 2 tablet PO BID PRN PRN Reason: Constipation Sodium Chloride () 10 - 40 ml IV UD PRN PRN Reason: SALINE FLUSH Throat Lozenges (Cepacol Sore Throat Lozenge) 1 lozenge MUCOUS MEM Q2H PRN PRN PRN Reason: SORE THROAT Assessment/Plan Active and Suspected Problems Acute stroke (Acute) RECOMMENDATIONS: 1. Continue routine ICU monitoring post TPA per protocol. 2. Echocardiogram is pending. 3. Maintain systolic blood pressures less than 185 mmHg. 4. PT/OT/speech evaluations once medically appropriate. IMPRESSIONS: 1. Altered mentation and dysarthric speech concerning for acute ischemic CVA status post TPA Continue to monitor in ICU setting per TPA protocol with plans to repeat chest imaging 24 hours post TPA administration. Echocardiogram is pending. Maintain systolic pressure less than 185 mmHg. PT/OT/speech evaluations once repeated head imaging is completed. 2. Hypertension/hyperlipidemia/advanced age Complicates care, management, recovery and prognosis. Okay to resume home statin. Therapy evaluation once medically stable. This note was generated with [employer] dictation software. It may contain incorrect words, spelling, and punctuation that were not noted in checking the note before signing. Inpatient E&M: 32797 Init Hosp L3
--- NOTE | 2020-05-02 09:48 | CASEMGMT ---
RN CM Assessment Note Intro role of CM to patient's via phone. is able to participate in assessment as patient cannot @ this time due to expressive aphasia. states pt is independent @ home, however has had falls x 2 in past week, the most recent was 2 days prior to admission..Patient was independent in ADL's and was driving. had hip replacement surgery recently, and daughter Araceli from [place] is at home assisting them. Presentation: expressive aphasia, R upper extremity paresthesais. Diagnosis: Embolic Stroke PCP: Dr. Nancy Santiago Specialists: none Insurance: [facility] Preferred Pharmacy: [facility] Pres[facility] Benefit: yes LNOK: , Prema Mortensen Living Arrangements: Lives in one story home with . 2 steps into home. They have bath with tub/shower, and bath with standing shower. Tranportation: DME: walker, wheelchair, cane HHC: none SNF: [facility] Inpatient Rehab unit 11/2018 after leg fracture. Discussed with and she states patient may be willing to return if recommended, but he is stubborn and the doctor will need to tell him this is the best for him to go. JO ANN CONNER let know PT/OT would work with patient and if recommended for rehab post hospital, physician would speak with patient. SW Referral: possible evaluation for Inpatient Rehab. PT/OT evals pending as pt is on bedrest post Tpa. DC Plan: undetermined. PT/OT ordered. CM will follow and assist with dc planning and coordination. is aware to call if dc concerns arise. Garrett LEE RN ACM
[2020-05-02] MEDS: Famotidine 20 MG Tablet PO ×2 (10:42→21:26)
[2020-05-02 14:38] LABS: Bacteria 0 SEEN /hpf (None Seen); Mucous, Urine 0 SEEN /hpf (<or=2+); White Blood Cells 0 SEEN /hpf (0-5)
[2020-05-02 14:47] LABS: Color, Urine Yellow (Yellow); Glucose, Dipstick Normal (Normal); Ketone-Dipstick Negative (Negative); Leukocyte Esterase-Dipstick Negative /ul (Negative); Nitrite-Dipstick Negative (Negative); Occult Blood-Urine 25 /ul (Negative); Protein-Dipstick Negative (Negative); Urine Bilirubin Dipstick Negative (Negative); Urine Clarity Clear (Clear); Urine Urobilinogen Normal (Normal); Urine pH 6.5 (5.0 - 8.0)
[2020-05-02 15:04] LABS: Red Blood Cells-Urine 0-5 SEEN /hpf (0-5); Squamous Epithelial Cells - UA 0-5 SEEN /hpf (0-5)
--- NOTE | 2020-05-02 16:08 | NURSING ---
pt tearful and holding phone. stated, i cant even remember my wifes number. i was always good that way remembering numbers. pt emotional support given. pt stated, i want to get it without you telling me.
--- NOTE | 2020-05-02 17:30 | MRI_ITS ---
We are attempting to reach an attending provider to discuss findings. An addendum with communication details will be sent when the communication is complete. STUDY: MRI BRAIN WITHOUT CONTRAST REASON FOR EXAM: Male, 80 years old. RIGHT weakness,slurred speech,confusion. 24hours s/p TPA TECHNIQUE: Standardized multiplanar fat and water weighted pulse sequences were obtained. COMPARISON: CT of the brain 05/01/2020 FINDINGS: Mild atrophy and periventricular white matter ischemic changes.. There is gliosis in the left parietal lobe with associated restricted diffusion consistent with acute ischemic changes Normal bilateral basal ganglia. Normal thalami. There is no extra-axial fluid accumulation. Normal flow voids within the major intracranial circulation suggesting patency by spin echo criteria. Normal sella turcica, pituitary gland, infundibular stalk, optic chiasm and hypothalamus. Normal tectal plate and pineal gland. Normal midbrain, luis and medulla. Normal cerebellum. Normal basal cisterns. Normal bilateral temporal bones. Normal bilateral internal auditory canals. 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 Minor mucosal thickening in the left maxillary bilateral ethmoid and frontal sinuses. Normal calvarium and skull base. Normal visualized soft tissue structures. Normal visualized upper cervical spine. MRI/Brain without Contrast IMPRESSION: Mild atrophy and periventricular white matter ischemic changes. Acute ischemic left parietal lobe infarct No evidence for hemorrhage status post TPA Electronically Signed: Tony Wyatt MD at 18:28 EDT , Service support ,
--- NOTE | 2020-05-02 18:36 | NURSING ---
keagan kline rn text dr. encinas saying mri completed.
--- NOTE | 2020-05-02 18:49 | TELEMED_ITS ---
[facility] Telemed has confirmed receipt of a request for visit. This document confirms receipt of the order initiating the consult. To find the results of the consultation, please view the patient's reports for the scanned Telemed Consult.
--- NOTE | 2020-05-02 18:49 | NURSING ---
pt able to state wifes number to nurse and was correct. sat up in bed and tv dinner meal given. pt aware that allowed to be up to br and to chair now with nursing.
[2020-05-02] MEDS: Atorvastatin Calcium 20 MG Tablet PO (21:26)
--- NOTE | 2020-05-02 22:28 | NURSING ---
Approval to move pt to PCU 116. Gathered pt's belongings. Transported on ekg monitor in bed to room. Pt donned facemask before leaving room in ICU and it remained on for the duration of the transport. Pt ambulated with assistance from hallway to PCU bed. Slow and steady.
[2020-05-03] VITALS (14 sets, daily range): BP systolic 128–159; BP diastolic 69–85; PULSE 60–78; RESP 16–18; TEMP 36.6–37.2; O2SAT 94–97; BMI 32.4
[2020-05-03] MEDS: Albuterol 2.5 MG/3 ML VIAL.NEB. INHALATION (00:23)
[2020-05-03] MEDS: Aspirin 81 MG TAB.CHEW PO (08:00)
[2020-05-03] MEDS: Famotidine 20 MG Tablet PO ×2 (08:01→21:25)
--- NOTE | 2020-05-03 09:11 | PCM.PROGNOTE ---
Patient Problems: Active and Suspected Problems Acute stroke (Acute) Subjective: Chief complaint: Follow-up after admission for acute left MCA ischemic stroke. Patient seen and examined. No acute events overnight. Today, he is alert and noted x3. Speech is coherent and fluent but delayed and slow. No more weakness of the right upper extremity. His vital signs are stable, blood pressure under control. - Physical Exam Vitals/I&O's: Vital Signs Temp Pulse Resp BP Pulse Ox 98.9 F 62 16 150/69 H 95 05/03/20 05:56 05/03/20 06:51 05/03/20 05:56 05/03/20 05:56 05/03/20 08:37 Oxygen Delivery Method Room Air Weight: 208 lb 5.389 oz Body Mass Index (BMI) 32.4 Finger Stick Blood Glucose 90 Intake and Output for Last 24 Hours 05/01/20 05/02/20 05/03/20 23:59 23:59 23:59 Intake Total 430.00 / 863.33 3059.99 / 3059.99 50 / 50 Output Total 350 / 350 2310 / 2310 225 / 225 Balance 80.00 / 513.33 749.99 / 749.99 -175 / -175 General: Alert, Oriented x3, Cooperative, No apparent distress HEENT: Atraumatic, PERRLA, Normocephalic Oral: Moist Mucosa, No Gingival or Mucosal Lesions/ Ulcerations Neck: Supple, No JVD, Negative Carotid Bruits, Trachea Midline, Thyroid Normal Size and Texture Lungs: Clear to auscultation, Normal air movement, No rhonchi, No wheeze, No rales, Diminished Cardiovascular: Regular rate, Regular Rhythm, Normal S1, Normal S2, PMI Normal Abdomen: Bowel Sounds Present, Soft, Non Tender, Non-Distended, No Hepato-splenomegaly Extremities: No clubbing, No cyanosis, No edema Skin: No rashes, No breakdown Lymphatic: No Cervical, Supraclavicular, or Inguinal Adenopathy Neurological: Cranial nerves II-XII grossly intact, Motor Exam 5/5 strength throughout, - - Slow/delayed speech. Psych/Mental Status: Normal Affect, Appropriate, Alert and oriented to time, place, person, mood and affect Laboratory Results 05/02/20 14:30: Urine Color Yellow, Urine Clarity Clear, Urine pH 6.5, Ur Specific [place] 1.010, Urine Protein Negative, Urine Glucose (UA) Normal, Urine Ketones Negative, Urine Occult Blood 25 H, Urine Nitrite Negative, Urine Bilirubin Negative, Urine Urobilinogen Normal, Ur Leukocyte Esterase Negative, Urine RBC 0-5 SEEN, Urine WBC 0 SEEN, Ur Squamous Epith Cells 0-5 SEEN, Urine Bacteria 0 SEEN, Urine Mucus 0 SEEN Clinical Impression(s) from Imaging Studies Brain MRI 05/02/20 17:30 IMPRESSION: Mild atrophy and periventricular white matter ischemic changes. Acute ischemic left parietal lobe infarct No evidence for hemorrhage status post TPA Electronically Signed: Tony Wyatt MD at 18:28 EDT , Service support , ADDENDUM: 05/02/20 1933 IMPRESSION: Mild atrophy and periventricular white matter ischemic changes. Acute ischemic left parietal lobe infarct No evidence for hemorrhage status post TPA N.B. : The above information has been verbally conveyed by Tony Wyatt MD to Dr. Danuta MD, on 05/02/2020 19:26:01 (ET). Electronically Signed: Tony Wyatt MD at 18:28 EDT , Service support , Current Medications Acetaminophen (Tylenol) 650 mg PO .X1 PRN PRN Reason: Temp > 99.6 F Acetaminophen (Tylenol) 650 mg PO Q6H PRN PRN PRN Reason: Pain Score 1-10/Temp > 100.7 F Al Hydroxide/Mg Hydroxide (Mylanta Ii) 30 ml PO Q6H PRN PRN PRN Reason: Gastric Burning Albuterol Sulfate (Ventolin Aerosols) 2.5 mg INHALATION Q2H PRN PRN PRN Reason: Dyspnea, wheezing Last Admin: 05/03/20 00:23 Dose: 2.5 mg Documented by: Aspirin (Aspirin, Baby) 81 mg PO DAILY@0800 [facility] Last Admin: 05/03/20 08:00 Dose: 81 mg Documented by: Atorvastatin Calcium (Lipitor) 20 mg PO QHS [facility] Last Admin: 05/02/20 21:26 Dose: 20 mg Documented by: Dextrose (D50w Syringe) 0 gm IV X1 PRN; Protocol PRN Reason: Hypoglycemia Diphenhydramine HCl (Benadryl) 50 mg IV .X1 PRN PRN Reason: Allergic Reaction Stop: 05/03/20 17:02 Epinephrine HCl () 0.3 mg IM .X1 PRN PRN Reason: Allergic Reaction Stop: 05/03/20 17:02 Famotidine (Pepcid) 20 mg PO BID [facility] Last Admin: 05/03/20 08:01 Dose: 20 mg Documented by: Glucagon () 1 mg IM .X1 PRN PRN Reason: Hypoglycemia Guaifenesin (Robitussin) 10 ml PO Q4H PRN PRN PRN Reason: COUGH Famotidine 20 mg/ Sodium (Chloride) 10 mls @ 300 mls/hr IV .X1 PRN PRN Reason: Allergic Reaction Stop: 05/03/20 17:02 Nicardipine/Dextrose (Cardene-Dex 20 Mg/200 Ml Soln) 20 mg in 200 mls @ 50 mls/hr IV .Q4H PRN; Protocol PRN Reason: See Instructions Labetalol HCl (Trandate) 20 mg IV X1 PRN PRN Reason: BLOOD PRESSURE Labetalol HCl (Trandate) 20 mg IV X1 PRN; Protocol PRN Reason: BLOOD PRESSURE Magnesium Hydroxide (Milk Of Magnesia) 30 ml PO DAILY PRN PRN PRN Reason: Constipation Melatonin (Melatonin) 3 mg PO QHS PRN PRN PRN Reason: INSOMNIA Methylprednisolone (Solu-Medrol) 125 mg IV .X1 PRN PRN Reason: Allergic Reaction Stop: 05/03/20 17:02 Nitroglycerin (Nitrostat) 0.4 mg SUBLINGUAL Q5M PRN PRN Reason: CARDIAC/CHEST PAIN Ondansetron HCl (Zofran) 4 mg IV Q8H PRN PRN PRN Reason: NAUSEA/VOMITING Prochlorperazine Edisylate (Compazine Iv) 5 mg IV Q4H PRN PRN PRN Reason: Breakthrough Nausea/Vomiting Last Admin: 05/02/20 04:39 Dose: 5 mg Documented by: Psyllium Hydrophilic Mucilloid (Metamucil) 1 packet PO DAILY PRN PRN PRN Reason: Constipation Senna/Docusate Sodium (Senokot-S, Anum-Colace) 2 tablet PO BID PRN PRN Reason: Constipation Sodium Chloride () 10 - 40 ml IV UD PRN PRN Reason: SALINE FLUSH Throat Lozenges (Cepacol Sore Throat Lozenge) 1 lozenge MUCOUS MEM Q2H PRN PRN PRN Reason: SORE THROAT Medical Necessity - Tobacco Use Smoking Status: Former smoker Tobacco Use: Cigarettes Assessment/Plan All Active Problems Acute stroke (Acute) This is an 80 years old male patient presented to the emergency room because of altered mental status and reportedly, he has been having dysarthria and right arm weakness, was seen by [facility] tele-neurology in the ED and recommended TPA for acute stroke and he was admitted for evaluation and treatment. #1 acute left MCA ischemic stroke: Status post TPA. No significant focal deficit. Patient is on aspirin and high intensity statins. Vital signs are stable, blood pressure under control. Apart from delayed speech, no other focal deficit. Routine blood work was unremarkable. EKG was unremarkable as well. TSH, magnesium and LFT was normal. Hemoglobin A1c was 6% consistent with prediabetes, blood sugar has been under control. MRI brain done yesterday evening and revealed acute ischemic left parietal lobe infarct, no evidence of hemorrhage. 2D echocardiogram revealed ejection fraction of 60%, RVSP of 38, other findings reviewed. Patient thinks that he can go home with physical therapy at home. Plan to continue same treatment, PT OT evaluation and treatment. #2 hypertension: Blood pressure stable, mainly on the higher side for permissive hypertension following stroke, home blood pressure medications are on hold. #3 hyperlipidemia: On statins. Lipid profile reviewed. #4 DVT prophylaxis: Status post TPA. This note was generated with [employer] dictation software. It may contain incorrect words, spelling, and punctuation that were not noted in checking the note before signing. Inpatient E&M: 96870 Subs Hosp L2
--- NOTE | 2020-05-03 14:13 | CASEMGMT ---
Social Work SW met with pt in room and completed PHQ9 depression screen with score of 3/27 indicating minimal depression. SW denies feelings of depression or assistance at this time. SW spoke with pt regarding d/c plan. Pt stating that he will not go to rehab anywhere due to the coronavirus and that he is not really going to go to therapy and push it due to his age. SW spoke with pt about home health and pt states he has had it in the past and would consider it but needs to talk to his . SW asked to call pt and pt declined stating he needs to speak with her first. SW to followup with pt for decision on home health. SALINAS Becker
--- NOTE | 2020-05-03 15:08 | CASEMGMT ---
This RN CM to room to see if pt had decided on therapy at discharge and pt states for CM to come back tomorrow as he would like to speak with Dr. Mclaughlin in regards to therapy recommendations tomorrow am. Pt states he is leaning towards [facility] for therapy as his just had surgery and she won't be able to get him around at this time. Pt provided with HHC list at this time. Son is at bedside. [place] JO ANN CONNER
[2020-05-03] MEDS: Atorvastatin Calcium 20 MG Tablet PO (21:25)
[2020-05-04 01:20] VITALS: BP 135/70; PULSE 65; RESP 16; TEMP 36.7; O2SAT 96
[2020-05-04 02:59] VITALS: PULSE 57
[2020-05-04 05:20] VITALS: BP 132/70; PULSE 72; RESP 16; TEMP 36.8; O2SAT 97
[2020-05-04 06:46] VITALS: PULSE 54
[2020-05-04 07:26] VITALS: BMI 32.4
[2020-05-04 09:00] VITALS: BP 142/77; PULSE 59; RESP 16; TEMP 36.7; O2SAT 95
[2020-05-04] MEDS: Famotidine 20 MG Tablet PO (09:12)
[2020-05-04] MEDS: Aspirin 81 MG TAB.CHEW PO (09:12)
--- NOTE | 2020-05-04 11:30 | DCINST_ITS ---
- Discharge Diagnoses Current Active Problems: Current Active and Chronic Problems Acute stroke (Acute) HTN (hypertension) (Chronic) HLD (hyperlipidemia) (Chronic) You will use the following diet at home:: Cardiac Your food should be the consistency of: Regular Your liquids should be the consistency of: Regular/Thin Discharge Activity: Return to Normal Activity Call your doctor if you observe: Fever of 101 or Higher, Shortness of breath, Dizziness, Fainting spells, Swelling in the ankles, Chest pain, Increased palpitations (irregular heartbeat) Allergies/Adverse Reactions: Allergies Penicillins Allergy (Verified 05/01/20 17:15) Hives adhesive tape Adverse Reaction (Verified 05/01/20 17:15) Other lawton blisters Medications to take at Discharge Acetaminophen [Tylenol] 1,000 mg PO TID 11/13/18 Aspirin [Aspir 81] 81 mg PO DAILY 11/13/18 Cholecalciferol (VIT D3) [Vitamin D3] 2,000 unit PO DAILY 11/13/18 Atenolol/Chlorthalidone [Atenolol-Chlorthalidone 50-25] 1 ea PO DAILY 05/01/20 Atorvastatin Calcium [Lipitor] 40 mg PO QHS #0 05/04/20 Clopidogrel Bisulfate [Plavix] 75 mg PO DAILY #30 tab 05/04/20 The following prescriptions were given: Clopidogrel Bisulfate [Plavix] 75 mg PO DAILY #30 tab Transmission Status: Pending to [facility]30 Primary Care Physician: Care Physician,No Primary [Primary Care Provider] - Please follow up with your Primary Care Physician in: 3-5 days Test Results: Test results from this visit will be discussed in further detail at your follow- up appointment, if applicable. Please Follow Up With: Osbaldo Romero MD When: 2-4 week
--- NOTE | 2020-05-04 11:39 | PCM.DC.SUM ---
Discharge Date and Diagnosis - Problem List Patient Problems: Active and Suspected Problems Acute stroke (Acute) Date of Admission: 05/01/20 Date of Discharge: 05/04/20 - Primary Discharge Diagnosis Acute Problems: Active Problems Acute stroke (Acute) - Secondary Discharge Diagnosis Chronic Problems: Chronic Problems HTN (hypertension) (Chronic) HLD (hyperlipidemia) (Chronic) Hospital Course and Treatment Imaging Results: CT Brain: IMPRESSION: Moderate atrophy and periventricular white matter ischemic changes. No evidence for acute bleed. If concern for acute infarct MRI recommended CTA Head/Neck: IMPRESSION: Mild atherosclerotic disease without evidence for hemodynamically significant stenosis Echo: Interpretation Summary The study was technically difficult. Left ventricular systolic function is normal. The estimated ejection fraction is 60 %. A calcified moderator band is seen in the right ventricle. The left atrium is mildly enlarged. Mild diffuse mitral valve thickening. Mild (1+) mitral valve insufficiency. Mild (1+) tricuspid valve insufficiency. Mild focal aortic valve calcification. Mildly dilated aortic root. Right ventricular systolic pressure estimated to be 38 mmHg. There is evidence of diastolic dysfunction. Bubble contrast study negative for right to left interatrial shunt. MRI Brain: IMPRESSION: Mild atrophy and periventricular white matter ischemic changes. Acute ischemic left parietal lobe infarct No evidence for hemorrhage status post TPA Consults: Neurology Operations: None Procedures: 2-D Echocardiogram Summary of Care Provided: Per HPI: The patient is a 80 year old M with pmhx of HTN, HLD, who presented to the ER with mental status change. The patient was in his normal state of health, last confirmed normal at abou 1600. At about 1630 he went out to his car and did not feel right. He called his who noted that on the phone he was confused and slurring his words. His daughter called EMS and prevented him from leaving despite that he did not want to talk to EMS. The patient was brought to the ER and stroke alert was called. He received tPA per [facility] tele neuro. He currently is resting in bed with ongoing confusion, slurred speech, difficulty forming sentences, CTA was without acute issues. Following the CTA pts family notes he seems to be speaking better and able to form more coherent sentences. He has ongoing ataxia R>L, slurred speech, parasthesias in the right arm/hand, difficulty reading. Per the patient family the patient has recently stopped taking his meds and is notoriously noncompliant with medical care, and was found recently by a son with a rapid heart rate in the 120s. Hospital Course: 1. Acute left MCA ischemic stroke status post TPA/HTN/[id number]-old male presented from home with acute right-sided symptoms including upper and lower extremity weakness and aphasia. Since the TPA all that has resolved. He is able to move his upper and lower extremities freely, and he has no difficulty with speech on the day of discharge. He was on 20 mg of Lipitor as well as a baby aspirin every day prior to the stroke, or [place] supposed to be however in discussion with the family he was very noncompliant and has recently stopped taking his medications. His aspirin was continued. Also his Lipitor was increased from 20 mg to 40 mg daily. I did recommend that he find a PCP given the increasing complexity of his care. Home blood pressure medications. Discussed the plan for discharge today and he home. He understands he does need some help and is agreeable to home health care for rehab. 2. His other medical diagnoses were evaluated and his home medications were continued where appropriate Patient Problems: Active and Suspected Problems Acute stroke (Acute) - Physical Exam Vitals/I&O's: Vital Signs Temp Pulse Resp BP Pulse Ox 98.1 F 59 L 16 142/77 H 95 05/04/20 09:00 05/04/20 09:00 05/04/20 09:00 05/04/20 09:00 05/04/20 09:00 Oxygen Delivery Method Room Air Weight: 207 lb 10.807 oz Body Mass Index (BMI) 32.4 Finger Stick Blood Glucose 90 Intake and Output for Last 24 Hours 05/02/20 05/03/20 05/04/20 23:59 23:59 23:59 Intake Total 3059.99 / 3059.99 730 / 730 0 / 0 Output Total 2310 / 2310 525 / 525 Balance 749.99 / 749.99 205 / 205 0 / 0 General: Alert, Oriented x3, Cooperative, No apparent distress HEENT: Atraumatic, PERRLA, EOMI, Normocephalic Oral: Moist Mucosa Neck: Supple, No JVD Lungs: Clear to auscultation, Normal air movement, No rhonchi, No wheeze, No rales, Diminished Cardiovascular: Regular rate, Regular Rhythm, Normal S1, Normal S2, No murmurs Abdomen: Soft, Non Tender, Non-Distended, No Hepato-splenomegaly Extremities: No edema, Capillary Refill Less than 3 Seconds Skin: No rashes, No breakdown Neurological: Neuro grossly intact, Motor Exam 5/5 strength throughout, Sensory exam intact to light touch and pain, - - Speech is normal Psych/Mental Status: Normal Affect, Appropriate Microbiology Past 72 Hours 05/02/20 14:30 Urine, Clean Catch Urine Culture - Final Mixed Gram Positive Organisms Current Medications Acetaminophen (Tylenol) 650 mg PO .X1 PRN PRN Reason: Temp > 99.6 F Acetaminophen (Tylenol) 650 mg PO Q6H PRN PRN PRN Reason: Pain Score 1-10/Temp > 100.7 F Al Hydroxide/Mg Hydroxide (Mylanta Ii) 30 ml PO Q6H PRN PRN PRN Reason: Gastric Burning Albuterol Sulfate (Ventolin Aerosols) 2.5 mg INHALATION Q2H PRN PRN PRN Reason: Dyspnea, wheezing Last Admin: 05/03/20 00:23 Dose: 2.5 mg Documented by: Aspirin (Aspirin, Baby) 81 mg PO DAILY@0800 [facility] Last Admin: 05/04/20 09:12 Dose: 81 mg Documented by: Atorvastatin Calcium (Lipitor) 20 mg PO QHS [facility] Last Admin: 05/03/20 21:25 Dose: 20 mg Documented by: Dextrose (D50w Syringe) 0 gm IV X1 PRN; Protocol PRN Reason: Hypoglycemia Famotidine (Pepcid) 20 mg PO BID [facility] Last Admin: 05/04/20 09:12 Dose: 20 mg Documented by: Glucagon () 1 mg IM .X1 PRN PRN Reason: Hypoglycemia Guaifenesin (Robitussin) 10 ml PO Q4H PRN PRN PRN Reason: COUGH Nicardipine/Dextrose (Cardene-Dex 20 Mg/200 Ml Soln) 20 mg in 200 mls @ 50 mls/hr IV .Q4H PRN; Protocol PRN Reason: See Instructions Labetalol HCl (Trandate) 20 mg IV X1 PRN PRN Reason: BLOOD PRESSURE Labetalol HCl (Trandate) 20 mg IV X1 PRN; Protocol PRN Reason: BLOOD PRESSURE Magnesium Hydroxide (Milk Of Magnesia) 30 ml PO DAILY PRN PRN PRN Reason: Constipation Melatonin (Melatonin) 3 mg PO QHS PRN PRN PRN Reason: INSOMNIA Nitroglycerin (Nitrostat) 0.4 mg SUBLINGUAL Q5M PRN PRN Reason: CARDIAC/CHEST PAIN Ondansetron HCl (Zofran) 4 mg IV Q8H PRN PRN PRN Reason: NAUSEA/VOMITING Prochlorperazine Edisylate (Compazine Iv) 5 mg IV Q4H PRN PRN PRN Reason: Breakthrough Nausea/Vomiting Last Admin: 05/02/20 04:39 Dose: 5 mg Documented by: Psyllium Hydrophilic Mucilloid (Metamucil) 1 packet PO DAILY PRN PRN PRN Reason: Constipation Senna/Docusate Sodium (Senokot-S, Anum-Colace) 2 tablet PO BID PRN PRN Reason: Constipation Sodium Chloride () 10 - 40 ml IV UD PRN PRN Reason: SALINE FLUSH Throat Lozenges (Cepacol Sore Throat Lozenge) 1 lozenge MUCOUS MEM Q2H PRN PRN PRN Reason: SORE THROAT Discharge Activity: Return to Normal Activity Call your doctor if you observe: Fever of 101 or Higher, Shortness of breath, Dizziness, Fainting spells, Swelling in the ankles, Chest pain, Increased palpitations (irregular heartbeat) Home Medications: Medications to take at Discharge Acetaminophen [Tylenol] 1,000 mg PO TID 11/13/18 Aspirin [Aspir 81] 81 mg PO DAILY 11/13/18 Cholecalciferol (VIT D3) [Vitamin D3] 2,000 unit PO DAILY 11/13/18 Atenolol/Chlorthalidone [Atenolol-Chlorthalidone 50-25] 1 ea PO DAILY 05/01/20 Atorvastatin Calcium [Lipitor] 40 mg PO QHS #0 05/04/20 Primary Care Physician: Care Physician,No Primary [Primary Care Provider] - Please follow up with your Primary Care Physician in: 3-5 days Please Follow Up With: Osbaldo Romero MD When: 2-4 week Disposition: Home with Home Health Minutes spent on discharge:: 35 Patient Condition:: Stable Medical Necessity - Tobacco Use Smoking Status: Former smoker Tobacco Use: Cigarettes Meaningful Use Info Meaningful Use Diagnoses (Choose all that apply): Ischemic CVA - CVA Therapy Assessed for PT,OT and/or ST?: Yes - Ischemic Stroke Antithrombotic order at d/c?: Yes Dx of Atrial fib/flutter?: No Statins at discharge?: Yes Primary Dx Acute Ischemic CVA?: Yes IV tPA ordered during stay?: Yes Inpatient E&M: 66942 Disch Hosp
--- NOTE | 2020-05-04 12:13 | PHA.DC.MR ---
Pharmacy Service has performed discharge medication reconciliation for this patient. The patient's discharge medication list was reviewed for discrepancies and discrepancies were resolved. Home Medications Acetaminophen [Tylenol] 1,000 mg PO TID 11/13/18 Aspirin [Aspir 81] 81 mg PO DAILY 11/13/18 Cholecalciferol (VIT D3) [Vitamin D3] 2,000 unit PO DAILY 11/13/18 Atenolol/Chlorthalidone [Atenolol-Chlorthalidone 50-25] 1 ea PO DAILY 05/01/20 Atorvastatin Calcium [Lipitor] 40 mg PO QHS #0 05/04/20
--- NOTE | 2020-05-04 12:48 | CASEMGMT ---
Addendum entered by Ludmila Cardoza 05/04/20 14:13: Pt denies having any further discharge needs/questions/concerns. Addendum entered by Ludmila Cardoza 05/04/20 14:04: Call received back from [facility] and they are able to accept pt. He is aware pt is discharging today. Pt made aware and he has [facility]'s contact information. Call placed back to [facility] and referral cancelled with them. Addendum entered by Ludmila Cardoza 05/04/20 13:30: Call placed to [facility]. They are not able to provide staffing for pt's area. Call received back from [facility]. She states they do cover pt's area and she will verify pt's insurance and call this RN CM back if they are able to accept pt. Addendum entered by Ludmila Cardoza 05/04/20 13:00: Call received back from [facility] and [place] offices. Both state they do not service pt's area. Calls placed to both [facility] and [facility] and VM messages left to inquire if they cover pt's area. Awaiting calls back. Original Note: RN UBALDO NOTE: RN CM to room to talk w/pt and discuss discharge planning. He states he has spoken w/the doctor and he has decided to go home w/[facility]. Pt reviewed [facility] list and states he has no preference of C agency. Call placed to [facility] and spoke w/[facility]. Referral made for SN, PT/OT, and ST and faxed to them at this time. [facility] was made aware pt is discharging today. Calls have also been placed to [facility] and [facility] and they are not able to accept pt d/t staffing. Call placed to [facility] and they are checking to see if able to cover pt's' area and will call this RN UBALDO back. Shashi LEE RN, CM
[2020-05-04 13:00] VITALS: BP 138/80; PULSE 65; RESP 16; TEMP 36.7; O2SAT 96
--- NOTE | 2020-05-04 14:23 | NURSING ---
This RN reviewed pt's dc instructions with pt in person and with the pt's via phone.
== END 2020-05-04 15:03 | disposition home health service (06) | DRG 62 ==
LOC: ED 18:35 → ICU 20:58 → PCU 05-02 22:03
PROVIDERS: Internal Medicine Critical Care Medicine; Admitting Provider Family Medicine; Emergency Provider Emergency Medicine; PCP Family Medicine; Visit Provider Family Medicine
DX: I63.9 Cerebral infarction, unspecified (principal); J98.11 Atelectasis; G81.91 Hemiplegia, unspecified affecting right dominant side; R47.01 Aphasia; E87.6 Hypokalemia; I10 Essential (primary) hypertension; E78.5 Hyperlipidemia, unspecified; F17.210 Nicotine dependence, cigarettes, uncomplicated; Z88.0 Allergy status to penicillin; Z91.14 Patient's other noncompliance with medication regimen; Z79.82 Long term (current) use of aspirin; Z66 Do not resuscitate; R73.03 Prediabetes; R41.82 Altered mental status, unspecified; R27.0 Ataxia, unspecified; Z91.19 Patient's noncompliance with other medical treatment and regimen; R47.1 Dysarthria and anarthria
CPT/HCPCS: 70450; 70496; 70498; 70551; 71045; 80053; 80061; 81001; 83036; 83735; 84439; 84443; 84484; 85025; 85610; 85730; 87086; 87088; 92507; 92523; 92610; 93005; 93306; 94640; 94762; 97162; 97166; 97530; 97802; 99251; 99285; J2997; J7030; Q9967; A4216; G0463

== ENCOUNTER 2020-05-23 10:23 | Inpatient (IN) | payer MEDICARE, OTHER, SELFPAY ==
[2020-05-23] VITALS (10 sets, daily range): BP systolic 95–188; BP diastolic 55–99; PULSE 65–115; RESP 15–24; TEMP 35.9–39.2; O2SAT 85–97; BMI 31.4; BMI 29.0; BMI 29.1
--- NOTE | 2020-05-23 10:24 | RAD_ITS ---
STUDY: X-RAY - PELVIS REASON FOR EXAM: Male, 80 years old. FALL. PAINFUL LEFT HIP/LEG TECHNIQUE: One view of the pelvis was obtained. COMPARISON: None. FINDINGS: Contrast within the urinary bladder. Lower lumbar spine surgical fixation hardware. Acute comminuted left intertrochanteric femoral neck fracture. No acute dislocation. No acute bone destruction. 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 Mild sacroiliac joint arthrosis. Moderate lumbar spine osteoarthritis. Osteopenia/osteoporosis. RAD/Pelvis 1 or 2 Views IMPRESSION: Acute left intertrochanteric femoral neck comminuted fracture Degenerative/postsurgical changes, as above Electronically Signed: Aston Griffin DO at 11:10 EDT Tel , Service support ,
--- NOTE | 2020-05-23 10:24 | RAD_ITS ---
STUDY: X-RAY - LEFT FEMUR REASON FOR STUDY: Male, 80 years old. FALL. PAINFUL LEFT LEG TECHNIQUE: 4 view(s) of the femur. COMPARISON: None. FINDINGS: Acute left comminuted intertrochanteric femoral neck fracture. No acute dislocation. No acute bone destruction. Osteopenia/osteoporosis. Moderate left hip osteoarthritis. Moderate pubic symphysis arthrosis. Contrast within the urinary bladder. Lumbar spinal fixation hardware. Left knee arthroplasty intact. RAD/Femur Min 2 Views IMPRESSION: Acute left comminuted intertrochanteric femoral neck fracture Electronically Signed: Aston Griffin DO at 11:13 EDT Tel , Service support ,
--- NOTE | 2020-05-23 10:26 | ED.DCSUM_ITS ---
- ER Visit Summary Date of Service: 05/23/20 Chief Complaint: Left hip/femur pain History of Present Illness: The patient is a 80 M who has left hip/femur pain after a fall. He was at [facility] when he tripped and fell on his left hand side. He has pain in the left hip and proximal femur area. Pain is worse with movement. He has had bilateral knee arthroplasties in the past but no hip surgeries. Anytime his leg moves he screams out in pain. No medications were given by EMS. Patient was just seen at [facility] this morning. He has recently also had a stroke. He denies any head trauma. No LOC. Physical Examination: Vital signs reviewed. HEENT exam unremarkable. Heart is regular rate and rhythm without murmurs. Lungs are clear to auscultation. Abdomen is soft and nontender. Extremities reveal no specific tenderness when you palpate this leg. However, whenever you move the leg he screams out in pain. He has a 2+ DP pulse. I feel no deformities. There is no ecchymosis. Skin exam normal. Neurologic exam normal. Test Results: Left hip and femur x-rays shows an acute left intertrochanteric hip fracture Emergency Department Course and Treatment: Patient was given morphine and then fentanyl for pain control. X-rays show an intertrochanteric hip fracture. Patient was discussed with Dr. Berman and states that he will likely do surgery on . Patient was discussed with the hospitalist for admission. Treatment Plan: [] Disposition: Admit Impression: Closed left intertrochanteric hip fracture This note was generated with [employer] dictation software. It may contain incorrect words, spelling, and punctuation that were not noted in review of the chart prior to signing ED Disposition - Plan for ED Patient: Referrals: Jessica Santiago DO [Primary Care Provider] -
[2020-05-23] MEDS: Morphine 4 MG/ML Syringe IM (10:33)
--- NOTE | 2020-05-23 11:24 | NURSING ---
DR BLANKENSHIP PAGED
[2020-05-23] MEDS: fentaNYL 100 MCG/2 ML Ampul 50 MCG IV (11:31)
--- NOTE | 2020-05-23 11:39 | NURSING ---
MED SURG JOMAURICEERI LEFT INTERTROCHANTERIC HIP FX
[2020-05-23 11:47] LABS: Absolute Lymphocyte Count 0.86 X10^3/uL (0.83-4.51); Absolute Neutrophil Count 17.2 X10^3/uL (2.0-7.7); Basophil# 0.03 X10^3/uL; Basophil% 0.2 % (0-1); Eosinophil# 0.02 X10^3/uL; Eosinophils% 0.1 % (0-5); Hematocrit 44.2 % (40-54); Hemoglobin 15.2 g/dL (13.0-16.5); Lymphocyte # 0.86 X10^3/ul (4.0); Lymphocyte % 4.6 % (19-41); Mean Corp Hgb Conc 34.4 g/dL (32-36); Mean Corpuscular Hgb 31.3 pg (27.0-32.0); Mean Corpuscular Volume 91.1 fL (80-94); Mean Platelet Vol. 8.9 fl (6.2-12.0); Monocyte# 0.58 X10^3/uL; Monocyte% 3.1 % (0-10); NRBC Flagged by Analyzer 0 % (0-5); Neutrophil % 91.2 % (47-70); Platelet Count 248 K/mm3 (150-450); RBC Distribution Width CV 12.1 % (11.6-14.6); RBC Distribution Width SD 40.3 fl (35.1-43.9); Red Blood Count 4.85 M/mm3 (4.6-6.2); White Blood Count 18.8 K/mm3 (4.4-11.0)
[2020-05-23 12:04] LABS: Anion Gap 6 (5-15); BUN 20 mg/dL (7-18); BUN/Creat Ratio 22.6 RATIO (10-20); Calcium,Total 9.9 mg/dL (8.5-10.1); Chloride 103 mmol/L (98-107); Creatinine, Serum 0.89 mg/dL (0.70-1.30); EST Glomerular Filtration Rate 88 mL/min (>60); Est Glom Filt Rate - Afr Amer 106 mL/min (>60); Glucose 207 mg/dL (74-106); Sodium Level 138 mmol/L (136-145)
--- NOTE | 2020-05-23 13:23 | NURSING ---
Primary RN to room. updated on patient. A&Oself, very restless and not leaving 4lnc o2 on. spot checked 91%RA.
--- NOTE | 2020-05-23 13:48 | HP.PCM_ITS ---
<Dee Dinh - Last Filed: 05/23/20 14:25> Problem List (1) Acute stroke Status: Chronic (2) HTN (hypertension) Status: Chronic Comment: April 2020 (3) HLD (hyperlipidemia) Status: Chronic History of Present Illness Date of Admission: 05/23/20 Chief Complaint: Fall, left hip pain. The patient is a 80 year old M who presents to the emergency room due to left hip pain following mechanical fall. No family at bedside during exam and patient is currently alert to self only. Per nursing report, reports patient is normally alert and oriented. He was reported to have fall at [employer] earlier today when he tripped and landed on his left side. Patient restless, confused. Unable to obtain HPI/ROS. Per nursing reports, reports patient has had a cough and shortness of breath recently. He has a past medical history of recent CVA April 2020, hypertension, hyperlipidemia. Past Medical History Past Medical History (Chronic Problems): Chronic Problems Acute stroke (Chronic) HTN (hypertension) (Chronic) April 2020 HLD (hyperlipidemia) (Chronic) Allergies Penicillins Allergy (Verified 05/23/20 11:35) Hives adhesive tape Adverse Reaction (Verified 05/23/20 11:35) Other lawton blisters Home Medications: Ambulatory Orders Medication Instructions Recorded Acetaminophen [Tylenol] 1,000 mg PO TID PRN PRN 11/13/18 Aspirin [Aspir 81] 81 mg PO DAILY 11/13/18 Cholecalciferol (VIT D3) [Vitamin 2,000 unit PO DAILY 11/13/18 D3] Atenolol/Chlorthalidone 1 ea PO DAILY 05/01/20 [Atenolol-Chlorthalidone 50-25] Clopidogrel Bisulfate [Clopidogrel] 75 mg PO DAILY 05/23/20 Simvastatin 40 mg PO QHS 05/23/20 Surgical History: - - Back surgery. Psychiatric History: No pertinent psych hx Lives: Spouse/ Significant Other Smoking Status: Former smoker Alcohol: None Drugs: None - *Family History Maternal History Items: - - Unable to obtain due to patient confusion. Paternal History Items: - - Unable to obtain due to patient confusion. Review of Systems Musculoskeletal: Reports: - - Left hip pain Unable to obtain accurate/complete ROS d/t: Unable to obtain ROS due to patient confusion. VTE Information - Inpt Only VTE Present on Admission: No VTE Mechan Device Prophylaxis: None VTE Pharm Prophylaxis ordered?: Yes - Physical Exam Vitals/I&O's: Vital Signs Temp Pulse Resp BP Pulse Ox 101.6 F H 115 H 24 H 137/99 H 95 05/23/20 13:35 05/23/20 13:35 05/23/20 13:35 05/23/20 13:35 05/23/20 13:35 Oxygen Flow Rate (L/min) 4 Oxygen Delivery Method Nasal Cannula Weight: 197 lb 1.6 oz Body Mass Index (BMI) 29.0 Finger Stick Blood Glucose 90 General: Alert, Cooperative, Confused, - - Restless, hallucinating HEENT: Atraumatic, PERRLA, EOMI, Normocephalic Oral: Dry Mucosa Neck: Supple, No JVD, Negative Carotid Bruits Lungs: Clear to auscultation, Diminished Cardiovascular: No murmurs, Tachycardic Abdomen: Bowel Sounds Present, Soft, Non Tender, Non-Distended Extremities: No clubbing, No cyanosis, No edema, Capillary Refill Less than 3 Seconds Skin: No rashes, No breakdown Musculoskeletal: No Tenderness to Palpation of Joints or Extremities Neurological: Cranial nerves II-XII grossly intact, Neuro grossly intact Psych/Mental Status: Restless Laboratory Results 05/23/20 11:35: WBC 18.8 H, RBC 4.85, Hgb 15.2, Hct 44.2, MCV 91.1, MCH 31.3, MCHC 34.4, RDW Std Deviation 40.3, RDW Coeff of Flora 12.1, Plt Count 248, MPV 8.9, Immature Gran % (Auto) 0.800, Neut % (Auto) 91.2 H, Lymph % (Auto) 4.6 L, Yolo % (Auto) 3.1, Eos % (Auto) 0.1, Baso % (Auto) 0.2, Absolute Neuts (auto) 17.2 H, Absolute Lymphs (auto) 0.86, Nucleated RBC % 0 05/23/20 11:35: Sodium 138, Potassium 3.0 L, Chloride 103, Carbon Dioxide 29.0, Anion Gap 6, BUN 20 H, Creatinine 0.89, Estim Creat Clear Calc 65.10, Est GFR (MDRD) Af Amer 106, Est GFR (MDRD) Non-Af 88, BUN/Creatinine Ratio 22.6 H, Gluco se 207 H, Calcium 9.9, Troponin I < 0.015 Current Medications Acetaminophen (Tylenol) 1,000 mg PO TID PRN PRN PRN Reason: pain 1-10/fever Atenolol (Tenormin (Beta Sena)) 50 mg PO DAILY [facility] Atorvastatin Calcium (Lipitor) 20 mg PO QHS [facility] Chlorthalidone (Hygroton) 25 mg PO DAILY [facility] Cholecalciferol (Vitamin D (25mcg)) 2,000 unit PO DAILY [facility] Enoxaparin Sodium (Lovenox) 40 mg SC DAILY@0600 [facility] Ondansetron HCl (Zofran) 4 mg IV Q8H PRN PRN PRN Reason: NAUSEA/VOMITING Oxycodone HCl (Oxyir) 5 mg PO Q4H PRN PRN PRN Reason: Pain Score 4-5/10 Oxycodone HCl (Oxyir) 10 mg PO Q4H PRN PRN PRN Reason: Pain Score 6-10/10 Sodium Chloride () 10 - 40 ml IV UD PRN PRN Reason: SALINE FLUSH Assessment/Plan 1. Acute traumatic left comminuted intertrochanter femoral neck fracture secondary to mechanical fall prior to admission- orthopedics on consult. Aspirin, Plavix on hold with plans for surgical intervention later this week. NSQIP surgical risk calculator completed, copy placed on chart. risk above average 3.3%, average risk 3%. Obtain preop EKG. Recent echocardiogram May 02, 2020 demonstrated an EF of 60%, mild mitral valve insufficiency, mild tricuspid valve insufficiency, RVSP estimated to be 38 mmHg. PRN pain regimen. PT/OT. Management per Ortho. 2. Metabolic versus infectious encephalopathy-patient confused and hallucinating on admission. Patient is normally alert and oriented at baseline per . Will pursue infectious work-up as noted below. 3. Hypoxia/cough/shortness of breath with leukocytosis and fever-COVID test ordered. Obtain urinalysis and chest x-ray. Continue supplement oxygen to maintain O2 at or above 90%. Check lactic acid. 4. Hypokalemia-replace per protocol. Trend BMP. 5. 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 Aspirin, Plavix on hold due to plans for surgical intervention. Continue statin. 6. Hypertension-stable, continue atenolol/chlorthalidone regimen. 7. Hyperlipidemia-continue statin. DVT prophylaxis-Lovenox subcu CODE STATUS: Per recent visit in April 2020, patient elected to remain full code. Patient confused and unable to have CODE STATUS discussion at this time. Will confirm with CODE STATUS. This patient was seen by ROHINI Gillespie under the supervision of Dr. Wallace. <Aston Wallace - Last Filed: 05/23/20 14:51> History of Present Illness The patient is a 80 year old M presents after falling and sustained a left hip fracture. Patient received 4 mg of morphine and 50 mcg of fentanyl in ED. Afterwards, was noted to be confused. Patient unable to provide any history. Apparently, pt had been short of breath and coughing prior to fall. [] Past Medical History Allergies Penicillins Allergy (Verified 05/23/20 11:35) Hives adhesive tape Adverse Reaction (Verified 05/23/20 11:35) Other lawton blisters Surgical History: - Psychiatric History: No pertinent psych hx Lives: Spouse/ Significant Other Smoking Status: Former smoker Alcohol: None Drugs: None - *Family History Maternal History Items: - Paternal History Items: - VTE Information - Inpt Only VTE Present on Admission: No VTE Mechan Device Prophylaxis: None VTE Pharm Prophylaxis ordered?: Yes - Physical Exam Vitals/I&O's: Vital Signs Temp Pulse Resp BP Pulse Ox 38.7 C H 115 H 24 H 137/99 H 95 05/23/20 13:35 05/23/20 13:35 05/23/20 13:35 05/23/20 13:35 05/23/20 13:35 Oxygen Flow Rate (L/min) 4 Oxygen Delivery Method Nasal Cannula Weight: 89.403 kg Body Mass Index (BMI) 29.0 Finger Stick Blood Glucose 90 General: Alert, Cooperative, Confused, - HEENT: Atraumatic, PERRLA, EOMI, Normocephalic Oral: Dry Mucosa Neck: Supple, No JVD, Negative Carotid Bruits, - - no meningismus Lungs: Clear to auscultation, Diminished Cardiovascular: No murmurs, Tachycardic Abdomen: Bowel Sounds Present, Soft, Non Tender, Non-Distended Extremities: No clubbing, No cyanosis, No edema, Capillary Refill Less than 3 Seconds Skin: No rashes, No breakdown Neurological: Cranial nerves II-XII grossly intact, Neuro grossly intact Psych/Mental Status: Agitated, Restless Laboratory Results 05/23/20 11:35: WBC 18.8 H, RBC 4.85, Hgb 15.2, Hct 44.2, MCV 91.1, MCH 31.3, MCHC 34.4, RDW Std Deviation 40.3, RDW Coeff of Flora 12.1, Plt Count 248, MPV 8.9, Immature Gran % (Auto) 0.800, Neut % (Auto) 91.2 H, Lymph % (Auto) 4.6 L, Yolo % (Auto) 3.1, Eos % (Auto) 0.1, Baso % (Auto) 0.2, Absolute Neuts (auto) 17.2 H, Absolute Lymphs (auto) 0.86, Nucleated RBC % 0 05/23/20 11:35: Sodium 138, Potassium 3.0 L, Chloride 103, Carbon Dioxide 29.0, Anion Gap 6, BUN 20 H, Creatinine 0.89, Estim Creat Clear Calc 65.10, Est GFR (MDRD) Af Amer 106, Est GFR (MDRD) Non-Af 88, BUN/Creatinine Ratio 22.6 H, Glucose 207 H, Calcium 9.9, Troponin I < 0.015 Clinical Impression(s) from Imaging Studies Femur X-Ray 05/23/20 10:24 IMPRESSION: Acute left comminuted intertrochanteric femoral neck fracture Electronically Signed: Aston Griffin DO at 11:13 EDT Tel , Service support , Pelvis X-Ray 05/23/20 10:24 IMPRESSION: Acute left intertrochanteric femoral neck comminuted fracture Degenerative/postsurgical changes, as above Electronically Signed: Aston Griffin DO at 11:10 EDT Tel , Service support , Current Medications Acetaminophen (Tylenol) 1,000 mg PO TID PRN PRN PRN Reason: pain 1-10/fever Atenolol (Tenormin (Beta Sena)) 50 mg PO DAILY [facility] Atorvastatin Calcium (Lipitor) 20 mg PO QHS [facility] Chlorthalidone (Hygroton) 25 mg PO DAILY [facility] Cholecalciferol (Vitamin D (25mcg)) 2,000 unit PO DAILY [facility] Enoxaparin Sodium (Lovenox) 40 mg SC DAILY@0600 [facility] Ondansetron HCl (Zofran) 4 mg IV Q8H PRN PRN PRN Reason: NAUSEA/VOMITING Oxycodone HCl (Oxyir) 5 mg PO Q4H PRN PRN PRN Reason: Pain Score 4-5/10 Oxycodone HCl (Oxyir) 10 mg PO Q4H PRN PRN PRN Reason: Pain Score 6-10/10 Sodium Chloride () 10 - 40 ml IV UD PRN PRN Reason: SALINE FLUSH Assessment/Plan Patient seen and examined independently. Data reviewed. I agree with the above note by the nurse practitioner. 1. Acute left hip fracture: Status post mechanical fall. Tentative plan is for surgery on the . NSQIP shows patient is of below average risk for perioperative complications. Patient medically cleared to proceed. Given the fact that patient is on aspirin and clopidogrel, which been held, surgery would not be able to be performed until the . Check a 25-hydroxy vitamin D level and replace if less than 50. 2. Encephalopathy: Apparently happened after the narcotics patient received so felt to be likely related with that. 3. Fever. Unclear etiology. Check infectious work-up, including UA and chest x-ray. Inpatient E&M: 59392 Init Hosp L3
[2020-05-23] MEDS: Acetaminophen 500 MG Tablet 1000 MG PO (15:26)
[2020-05-23 17:20] LABS: Mucous, Urine 0 SEEN /hpf (<or=2+); Squamous Epithelial Cells - UA 0 SEEN /hpf (0-5); White Blood Cells 0 SEEN /hpf (0-5)
[2020-05-23 17:29] LABS: Color, Urine Yellow (Yellow); Glucose, Dipstick Normal (Normal); Ketone-Dipstick 15 mg/dl (Negative); Leukocyte Esterase-Dipstick Negative /ul (Negative); Nitrite-Dipstick Negative (Negative); Occult Blood-Urine 150 /ul (Negative); Protein-Dipstick 30 mg/dl (Negative); Urine Bilirubin Dipstick Negative (Negative); Urine Clarity Clear (Clear); Urine Urobilinogen 4 mg/dl (Normal)
[2020-05-23 17:38] LABS: Bacteria RARE /hpf (None Seen); Red Blood Cells-Urine 0-5 SEEN /hpf (0-5)
--- NOTE | 2020-05-23 17:50 | RAD_ITS ---
STUDY: X-RAY CHEST REASON FOR EXAM: Male, 80 years old. Dyspnea. Left hip fracture. TECHNIQUE: Single AP portable view of the chest. COMPARISON: 05/01/2020. FINDINGS: There is improved inspiratory effort when compared to prior study. The bibasilar atelectasis seen on the prior study is no longer evident. There is persistent elevation of the right hemidiaphragm. There is no acute infiltrate or mass. There is no demonstrated pleural abnormality. Borderline cardiomegaly. Normal mediastinum and jaime. Normal visualized pulmonary arteries. There is atherosclerotic calcification of the aortic arch with tortuosity. The thoracic spine is obscured by the mediastinum. There is marked degenerative osteoarthritis of the bilateral shoulders. There is no demonstrated abnormality of the visualized soft tissue structures of the upper abdomen. RAD/Chest 1 View (Portable) IMPRESSION: No acute cardiopulmonary disease. Electronically Signed: Curt Gross DO at 19:55 EDT Tel [phone], Service support ,
[2020-05-23] MEDS: 0.9% Saline Lock 10 ML Syringe IV (18:22)
[2020-05-23 19:25] LABS: Reflex Lactate? Y
--- NOTE | 2020-05-23 19:45 | PCM.RX.CS ---
Consult Pharmacy has been consulted to manage selected antiobiotic: Vancomycin Type of Consult: New start Labs: Sodium 138 mmol/L (136-145) 05/23/20 11:35 Potassium 3.0 mmol/L (3.5-5.1) L 05/23/20 11:35 Chloride 103 mmol/L (98-107) 05/23/20 11:35 Carbon Dioxide 29.0 mmol/L (21.0-32.0) 05/23/20 11:35 Anion Gap 6 (5-15) 05/23/20 11:35 BUN 20 mg/dL (7-18) H 05/23/20 11:35 Creatinine 0.89 mg/dL (0.70-1.30) 05/23/20 11:35 Est GFR (MDRD) Af Amer 106 mL/min (>60) 05/23/20 11:35 Est GFR (MDRD) Non-Af 88 mL/min (>60) 05/23/20 11:35 BUN/Creatinine Ratio 22.6 RATIO (10-20) H 05/23/20 11:35 Glucose 207 mg/dL (74-106) H 05/23/20 11:35 Weight used for dosin.4 kg Estimated Creatinine Clearance: 65ML/HR Goal Trough: 15-20 mcg/mL Pharmacy Plan for Drug Dosing: Give initial loading dose of 2000mg IV x1, then continue with 1000mg IV q12h per [facility] dosing protocol. Will check a trough level before the 4th total dose. Pharmacy Service will continue to monitor and adjust dosing as required. Follow-Up Labs: Trough Vancomycin Labs to be done on [date and time ordered]: 05/25/20 06:30
[2020-05-23 20:24] LABS: Lactic Acid 2.1 mmol/L (0.4-1.9)
[2020-05-23] MEDS: oxyCODONE 5 MG Tablet PO (20:47)
[2020-05-23] MEDS: Atorvastatin Calcium 20 MG Tablet PO (20:49)
[2020-05-24 00:12] LABS: Lactic Acid 1.7 mmol/L (0.4-1.9)
[2020-05-24] MEDS: Mag Hydrox/Al Hydrox/Simeth 30 ML UDC PO ×2 (00:28→21:40)
[2020-05-24] MEDS: oxyCODONE 5 MG Tablet PO ×3 (00:54→14:20)
[2020-05-24] MEDS: Acetaminophen 500 MG Tablet 1000 MG PO (00:55)
[2020-05-24 00:59] VITALS: BP 122/66; PULSE 57; RESP 18; TEMP 36.4; O2SAT 98
[2020-05-24 01:00] VITALS: PULSE 57; RESP 18; O2SAT 98
[2020-05-24] MEDS: oxyCODONE 5 MG Tablet 10 MG PO ×2 (05:29→21:50)
[2020-05-24] MEDS: Enoxaparin 40 MG/0.4 ML Syringe SC (05:30)
[2020-05-24] MEDS: Vancomycin IV 1,000 MG/200 ML BAG 200 MG IV ×2 (06:36→18:55)
[2020-05-24 06:52] LABS: Hematocrit 38.4 % (40-54); Hemoglobin 13.1 g/dL (13.0-16.5); Mean Corp Hgb Conc 34.1 g/dL (32-36); Mean Corpuscular Hgb 31.6 pg (27.0-32.0); Mean Corpuscular Volume 92.8 fL (80-94); Platelet Count 204 K/mm3 (150-450); RBC Distribution Width CV 12.4 % (11.6-14.6); RBC Distribution Width SD 42.5 fl (35.1-43.9); Red Blood Count 4.14 M/mm3 (4.6-6.2); White Blood Count 22.2 K/mm3 (4.4-11.0)
[2020-05-24 07:22] LABS: Anion Gap 6 (5-15); BUN 20 mg/dL (7-18); BUN/Creat Ratio 24.5 RATIO (10-20); Calcium,Total 8.9 mg/dL (8.5-10.1); Chloride 100 mmol/L (98-107); Creatinine, Serum 0.82 mg/dL (0.70-1.30); EST Glomerular Filtration Rate 96 mL/min (>60); Est Glom Filt Rate - Afr Amer 117 mL/min (>60); Estimated Creatinine Clearance 70.65 ml/min; Glucose 149 mg/dL (74-106); Potassium 2.9 mmol/L (3.5-5.1); Sodium Level 136 mmol/L (136-145)
[2020-05-24 08:30] VITALS: BP 97/70; PULSE 64; RESP 18; TEMP 36.9; O2SAT 94
[2020-05-24] MEDS: Potassium Chloride 10mEq/100mL 10 MEQ/100 ML IV.SOLN. 75 MEQ IV BOLUS ×4 (09:28→13:30)
--- NOTE | 2020-05-24 10:30 | CASEMGMT ---
RN CM Face to Face with patient for initial transition planning/care coordination assessment. RN CM introduced self and role at [facility]. Patient lying in bed, alert and oriented. Patient willing to participate in assessment and is able to answer all questions appropriately. Care providers, pharmacy, and demographics verified. Patient wishes to discharge home, will monitor how patient progresses with therapy after surgery. Patient states he has no further needs or concerns at this time. CM to follow for discharge planning needs that may arise. PCP: Jack Specialists: None Preferred Pharmacy: [facility] Insurance: anirudh HANSON Prescription Benefit: yes Living Will/HPOA: none LNOK: Living Arrangements: Patient lives with in a 1 story home with 1 step to enter the home. Patient states he is independent at home. Transportation: self/ DME/HHC: Patient states he has shower chair, raised toilet, walker, wheelchair, and grab bars at home. Per chart patient was setup with [facility] last admission. Patient states that he has been to TCU in the past. Disposition Plan: TBD. Will monitor how patient progresses with therapy after surgery. Mihaela LEE, RN, CM
[2020-05-24] MEDS: 0.9% Normal Saline 1,000 ML 75 ML IV (10:49)
--- NOTE | 2020-05-24 12:18 | PN_ITS ---
<Dee Dinh - Last Filed: 05/24/20 12:27> Subjective: Patient seen and examined. Alert and oriented. Denies shortness of breath, cough. No further fever. Nursing placing traction on left lower extremity. Patient having severe left hip pain during intervention. Otherwise patient reports pain has been tolerable. - Physical Exam Vitals/I&O's: Vital Signs Temp Pulse Resp BP Pulse Ox 98.5 F 64 18 97/70 94 05/24/20 08:30 05/24/20 08:30 05/24/20 08:30 05/24/20 08:30 05/24/20 08:30 Oxygen Flow Rate (L/min) 2 Oxygen Delivery Method Room Air Weight: 197 lb 1.6 oz Body Mass Index (BMI) 29.0 Finger Stick Blood Glucose 90 Intake and Output for Last 24 Hours 05/22/20 05/23/20 05/24/20 23:59 23:59 23:59 Intake Total 1060 / 1460 1120 / 1120 Output Total 200 / 550 603 / 603 Balance 860 / 910 517 / 517 General: Alert, Oriented x3, Cooperative HEENT: Atraumatic, PERRLA, EOMI, Normocephalic Neck: Supple, No JVD, Negative Carotid Bruits Lungs: Clear to auscultation, Diminished Cardiovascular: Regular rate, No murmurs Abdomen: Bowel Sounds Present, Soft, Non Tender Extremities: No clubbing, No cyanosis, No edema, Capillary Refill Less than 3 Seconds Skin: No rashes, No breakdown Musculoskeletal: No Tenderness to Palpation of Joints or Extremities Neurological: Cranial nerves II-XII grossly intact, Neuro grossly intact Psych/Mental Status: Normal Affect, Appropriate Microbiology Past 72 Hours 05/23/20 19:25 Blood Culture (Wb) - Right Forearm Blood Culture - Preliminary 05/23/20 19:15 Blood Culture (Wb) - Left Wrist Blood Culture - Preliminary Laboratory Results 05/23/20 11:35: Vitamin D 25-Hydroxy 25.0 05/23/20 14:55: COVID-19 (TARA) Negative 05/23/20 15:10: Lactic Acid 2.0 05/23/20 16:45: Urine Color Yellow, Urine Clarity Clear, Urine pH 6.0, Ur Specific [place] 1.010, Urine Protein 30 H, Urine Glucose (UA) Normal, Urine Ketones 15 H, Urine Occult Blood 150 H, Urine Nitrite Negative, Urine Bilirubin Negative, Urine Urobilinogen 4 H, Ur Leukocyte Esterase Negative, Urine RBC 0-5 SEEN, Urine WBC 0 SEEN, Ur Squamous Epith Cells 0 SEEN, Urine Bacteria RARE, Urine Mucus 0 SEEN 05/23/20 19:05: Lactic Acid 2.1 H* 05/23/20 23:40: Lactic Acid 1.7 05/24/20 06:19: WBC 22.2 H, RBC 4.14 L, Hgb 13.1, Hct 38.4 L, MCV 92.8, MCH 31.6, MCHC 34.1, RDW Std Deviation 42.5, RDW Coeff of Flora 12.4, Plt Count 204, MPV 9.0 05/24/20 06:19: Sodium 136, Potassium 2.9 L, Chloride 100, Carbon Dioxide 30.0, Anion Gap 6, BUN 20 H, Creatinine 0.82, Estim Creat Clear Calc 70.65, Est GFR (MDRD) Af Amer 117, Est GFR (MDRD) Non-Af 96, BUN/Creatinine Ratio 24.5 H, Glucose 149 H, Calcium 8.9 Current Medications Acetaminophen (Tylenol) 1,000 mg PO TID PRN PRN PRN Reason: pain 1-10/fever Last Admin: 05/24/20 00:55 Dose: 1,000 mg Documented by: Al Hydroxide/Mg Hydroxide (Mylanta Ii) 30 ml PO Q4H PRN PRN PRN Reason: HEARTBURN Last Admin: 05/24/20 00:28 Dose: 30 ml Documented by: Atenolol (Tenormin (Beta Sena)) 50 mg PO DAILY [facility] Last Admin: 05/24/20 09:29 Dose: Not Given Documented by: Atorvastatin Calcium (Lipitor) 20 mg PO QHS [facility] Last Admin: 05/23/20 20:49 Dose: 20 mg Documented by: Chlorthalidone (Hygroton) 25 mg PO DAILY [facility] Last Admin: 05/24/20 09:29 Dose: Not Given Documented by: Docusate Sodium (Colace) 200 mg PO BID PRN PRN PRN Reason: Constipation Enoxaparin Sodium (Lovenox) 40 mg SC DAILY@0600 [facility] Last Admin: 05/24/20 05:30 Dose: 40 mg Documented by: Ergocalciferol (Vitamin D) 50,000 unit PO Q7D [facility] Stop: 07/11/20 17:01 Last Admin: 05/23/20 18:23 Dose: 50,000 unit Documented by: Meropenem 1 gm/ Sodium (Chloride) 120 mls @ 33 mls/hr IV Q8 [facility] Last Infusion: 05/24/20 09:08 Dose: Infused Documented by: Vancomycin IV Pharmacy to Dose (1 ea/ Sodium Chloride) 500 mls @ 250 mls/hr IV X1 PRN; Protocol PRN Reason: Rx to Dose Vancomycin HCl (Vancomycin) 1,000 mg in 200 mls @ 200 mls/hr IV Q12H [facility] Last Infusion: 05/24/20 07:36 Dose: Infused Documented by: Potassium Chloride () 10 meq in 100 mls @ 100 mls/hr IV BOLUS Q1H [facility] Stop: 05/24/20 13:14 Last Admin: 05/24/20 10:48 Dose: 75 mls/hr Documented by: Sodium Chloride () 1,000 mls @ 75 mls/hr IV .[id number] [facility] Stop: 05/24/20 14:30 Last Admin: 05/24/20 10:49 Dose: 75 mls/hr Documented by: Ondansetron HCl (Zofran) 4 mg IV Q8H PRN PRN PRN Reason: NAUSEA/VOMITING Oxycodone HCl (Oxyir) 5 mg PO Q4H PRN PRN PRN Reason: Pain Score 4-5/10 Last Admin: 05/24/20 00:54 Dose: 5 mg Documented by: Oxycodone HCl (Oxyir) 10 mg PO Q4H PRN PRN PRN Reason: Pain Score 6-10/10 Last Admin: 05/24/20 05:29 Dose: 10 mg Documented by: Polyethylene Glycol (Miralax) 17 gm PO DAILY PRN PRN Reason: Constipation Sodium Chloride () 10 - 40 ml IV UD PRN PRN Reason: SALINE FLUSH Last Admin: 05/23/20 18:22 Dose: 10 ml Documented by: Medical Necessity - Tobacco Use Smoking Status: Former smoker Assessment/Plan 1. Acute traumatic left comminuted intertrochanter femoral neck fracture secondary to mechanical fall prior to admission- orthopedics on consult. Aspirin, Plavix on hold with tentative plan for surgical intervention 05/25. NSQIP surgical risk calculator completed, copy placed on chart. risk above average 3.3%, average risk 3%. Recent echocardiogram May 02, 2020 demonstrated an EF of 60%, mild mitral valve insufficiency, mild tricuspid valve insufficiency, RVSP estimated to be 38 mmHg. PRN pain regimen. PT/OT. Management per Ortho. 2. Metabolic versus infectious encephalopathy-resolved. Possibly medication related due to fentanyl and morphine in ER versus underlying infection. 3. Sepsis secondary to gram + bacteremia-COVID negative. Urinalysis and chest x-ray unremarkable. Urine culture ordered. Blood cultures 2/2 growing gram- positive cocci. Continue IV meropenem and IV vancomycin. Consult ID. 4. Hypokalemia-replace per protocol. Trend BMP. 5. 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 Aspirin, Plavix on hold due to plans for surgical intervention. Continue statin. 6. Hypertension-stable, continue atenolol/chlorthalidone regimen. 7. Hyperlipidemia-continue statin. DVT prophylaxis-Lovenox subcu This patient was seen by ROHINI Gillespie under the supervision of Dr. Wallace. <Aston Wallace - Last Filed: 05/24/20 14:18> - Physical Exam Vitals/I&O's: Vital Signs Temp Pulse Resp BP Pulse Ox 36.9 C 64 18 97/70 94 05/24/20 08:30 05/24/20 08:30 05/24/20 08:30 05/24/20 08:30 05/24/20 08:30 Oxygen Flow Rate (L/min) 2 Oxygen Delivery Method Room Air Weight: 89.403 kg Body Mass Index (BMI) 29.0 Finger Stick Blood Glucose 90 Intake and Output for Last 24 Hours 05/22/20 05/23/20 05/24/20 23:59 23:59 23:59 Intake Total 1060 / 1460 1758.75 / 1758.75 Output Total 200 / 550 853 / 853 Balance 860 / 910 905.75 / 905.75 General: Alert, Cooperative HEENT: Atraumatic, Normocephalic Neck: No Nodes, Thyroid Normal Size and Texture Lungs: Clear to auscultation, Diminished Cardiovascular: Regular rate, No murmurs Abdomen: Bowel Sounds Present, Soft, Non Tender Extremities: No edema, No Calf Tenderness Skin: No rashes, No breakdown Psych/Mental Status: Normal Affect, Appropriate Microbiology Past 72 Hours 05/23/20 19:25 Blood Culture (Wb) - Right Forearm Blood Culture - Preliminary 05/23/20 19:15 Blood Culture (Wb) - Left Wrist Blood Culture - Preliminary Laboratory Results 05/23/20 11:35: Vitamin D 25-Hydroxy 25.0 05/23/20 14:55: COVID-19 (TARA) Negative 05/23/20 15:10: Lactic Acid 2.0 05/23/20 16:45: Urine Color Yellow, Urine Clarity Clear, Urine pH 6.0, Ur Specific [place] 1.010, Urine Protein 30 H, Urine Glucose (UA) Normal, Urine Ketones 15 H, Urine Occult Blood 150 H, Urine Nitrite Negative, Urine Bilirubin Negative, Urine Urobilinogen 4 H, Ur Leukocyte Esterase Negative, Urine RBC 0-5 SEEN, Urine WBC 0 SEEN, Ur Squamous Epith Cells 0 SEEN, Urine Bacteria RARE, Urine Mucus 0 SEEN 05/23/20 19:05: Lactic Acid 2.1 H* 05/23/20 23:40: Lactic Acid 1.7 05/24/20 06:19: WBC 22.2 H, RBC 4.14 L, Hgb 13.1, Hct 38.4 L, MCV 92.8, MCH 31.6, MCHC 34.1, RDW Std Deviation 42.5, RDW Coeff of [place]ora 12.4, Plt Count 204, MPV 9.0 05/24/20 06:19: Sodium 136, Potassium 2.9 L, Chloride 100, Carbon Dioxide 30.0, Anion Gap 6, BUN 20 H, Creatinine 0.82, Estim Creat Clear Calc 70.65, Est GFR (MDRD) Af Amer 117, Est GFR (MDRD) Non-Af 96, BUN/Creatinine Ratio 24.5 H, Glucose 149 H, Calcium 8.9 05/24/20 06:19: Magnesium 1.9 Current Medications Acetaminophen (Tylenol) 1,000 mg PO TID PRN PRN PRN Reason: pain 1-10/fever Last Admin: 05/24/20 00:55 Dose: 1,000 mg Documented by: Al Hydroxide/Mg Hydroxide (Mylanta Ii) 30 ml PO Q4H PRN PRN PRN Reason: HEARTBURN Last Admin: 05/24/20 00:28 Dose: 30 ml Documented by: Atenolol (Tenormin (Beta Sena)) 50 mg PO DAILY [facility] Last Admin: 05/24/20 09:29 Dose: Not Given Documented by: Atorvastatin Calcium (Lipitor) 20 mg PO QHS [facility] Last Admin: 05/23/20 20:49 Dose: 20 mg Documented by: Chlorthalidone (Hygroton) 25 mg PO DAILY [facility] Last Admin: 05/24/20 09:29 Dose: Not Given Documented by: Docusate Sodium (Colace) 200 mg PO BID PRN PRN PRN Reason: Constipation Last Admin: 05/24/20 12:29 Dose: 200 mg Documented by: Enoxaparin Sodium (Lovenox) 40 mg SC DAILY@0600 [facility] Last Admin: 05/24/20 05:30 Dose: 40 mg Documented by: Ergocalciferol (Vitamin D) 50,000 unit PO Q7D [facility] Stop: 07/11/20 17:01 Last Admin: 05/23/20 18:23 Dose: 50,000 unit Documented by: Meropenem 1 gm/ Sodium (Chloride) 120 mls @ 33 mls/hr IV Q8 [facility] Last Infusion: 05/24/20 09:08 Dose: Infused Documented by: Vancomycin IV Pharmacy to Dose (1 ea/ Sodium Chloride) 500 mls @ 250 mls/hr IV X1 PRN; Protocol PRN Reason: Rx to Dose Vancomycin HCl (Vancomycin) 1,000 mg in 200 mls @ 200 mls/hr IV Q12H [facility] Last Infusion: 05/24/20 07:36 Dose: Infused Documented by: Sodium Chloride () 1,000 mls @ 75 mls/hr IV .[id number] [facility] Stop: 05/24/20 14:30 Last Admin: 05/24/20 10:49 Dose: 75 mls/hr Documented by: Clindamycin Phosphate 600 mg/ (Dextrose) 54 mls @ 100 mls/hr IV PREOP ONE Stop: 05/25/20 08:02 Ondansetron HCl (Zofran) 4 mg IV Q8H PRN PRN PRN Reason: NAUSEA/VOMITING Oxycodone HCl (Oxyir) 5 mg PO Q4H PRN PRN PRN Reason: Pain Score 4-5/10 Last Admin: 05/24/20 12:28 Dose: 5 mg Documented by: Oxycodone HCl (Oxyir) 10 mg PO Q4H PRN PRN PRN Reason: Pain Score 6-10/10 Last Admin: 05/24/20 05:29 Dose: 10 mg Documented by: Polyethylene Glycol (Miralax) 17 gm PO DAILY PRN PRN Reason: Constipation Potassium Chloride (K-Dur) 40 meq PO X1 [facility] Stop: 05/24/20 17:01 Sodium Chloride () 10 - 40 ml IV UD PRN PRN Reason: SALINE FLUSH Last Admin: 05/23/20 18:22 Dose: 10 ml Documented by: Assessment/Plan Patient seen and examined independently. Data reviewed. I agree with the above note by the nurse practitioner. 1. Acute left hip fracture: * Status post mechanical fall. * NSQIP shows patient is of below average risk for perioperative complications. * 25 hydroxy D at 25. Started ergocalciferol * surgery on hold given bacteremia 2. Severe sepsis: * 2/2 bacteremia * BCx on 05/23 gram stain showing GPC * repeat BCx on 05/24 * on meropenem and vancomycin * ID consult 3. Encephalopathy: * suspect toxic given narcotics, but likely enhanced by severe sepsis * resolved 4. Bacteremia: * as for #2 * repeat Cx * if persistent bacteremia, consider TTE 5. CVA: * ASA and clopidogrel currently held for impending surgery. Inpatient E&M: [id number] [facility] L3
[2020-05-24] MEDS: Docusate Sodium 100 MG Capsule 200 MG PO (12:29)
[2020-05-24 12:48] LABS: Magnesium 1.9 mg/dL (1.6-2.6)
--- NOTE | 2020-05-24 12:59 | CON.PCM_ITS ---
Reason for Consult Date of Consultation: 05/24/20 Reason for Consultation: left intertrochanteric hip fracture History of Present Illness: The patient is a 80 year old M recently diagnosed stroke on plavix with left sided mild hemiparesis. Hard of hearing but is present. was resently discharged ER and was in parking lot and tripped at ground level sustaining a left hip fracture. he was admitted and found to have elevated wbc and bacteremia. on IV antibiotic now and ID consulted. he had prior left TKA and left Leg ORIF without complication in past ,denies injury to these areas currently. he only has pain about the left hip. he does not use an assistive device as says paresis is mild and isolated upper extremity. Past Medical History Past Medical History (Chronic Problems): Chronic Problems Acute stroke (Chronic) HTN (hypertension) (Chronic) April 2020 HLD (hyperlipidemia) (Chronic) Allergies Penicillins Allergy (Verified 05/23/20 11:35) Hives adhesive tape Adverse Reaction (Verified 05/23/20 11:35) Other [place] blisters Home Medications: Ambulatory Orders Medication Instructions Recorded Acetaminophen [Tylenol] 1,000 mg PO TID PRN PRN 11/13/18 Aspirin [Aspir 81] 81 mg PO DAILY 11/13/18 Cholecalciferol (VIT D3) [Vitamin 2,000 unit PO DAILY 11/13/18 D3] Atenolol/Chlorthalidone 1 ea PO DAILY 05/01/20 [Atenolol-Chlorthalidone 50-25] Clopidogrel Bisulfate [Clopidogrel] 75 mg PO DAILY 05/23/20 Simvastatin 40 mg PO QHS 05/23/20 Surgical History: total knee arthroplasty - left leg ORIF, - Psychiatric History: No pertinent psych hx Lives: Spouse/ Significant Other Smoking Status: Former smoker Alcohol: None Drugs: None - *Family History Maternal History Items: - Paternal History Items: - - Physical Exam Vitals/I&O's: Vital Signs Temp Pulse Resp BP Pulse Ox 98.5 F 64 18 97/70 94 05/24/20 08:30 05/24/20 08:30 05/24/20 08:30 05/24/20 08:30 05/24/20 08:30 Oxygen Flow Rate (L/min) 2 Oxygen Delivery Method Room Air Weight: 197 lb 1.6 oz Body Mass Index (BMI) 29.0 Finger Stick Blood Glucose 90 Intake and Output for Last 24 Hours 05/22/20 05/23/20 05/24/20 23:59 23:59 23:59 Intake Total 1060 / 1460 1670 / 1670 Output Total 200 / 550 853 / 853 Balance 860 / 910 817 / 817 Extremities: - - swelling about left hip without open lesion. compartmentssoft intact sensation to ligt touch and able to wiggle toes. he is in bucks traction. Microbiology Past 72 Hours 05/23/20 19:25 Blood Culture (Wb) - Right Forearm Blood Culture - Preliminary 05/23/20 19:15 Blood Culture (Wb) - Left Wrist Blood Culture - Preliminary Laboratory Results 05/23/20 11:35: Vitamin D 25-Hydroxy 25.0 05/23/20 14:55: COVID-19 (TARA) Negative 05/23/20 15:10: Lactic Acid 2.0 05/23/20 16:45: Urine Color Yellow, Urine Clarity Clear, Urine pH 6.0, Ur Specific [place] 1.010, Urine Protein 30 H, Urine Glucose (UA) Normal, Urine Ketones 15 H, Urine Occult Blood 150 H, Urine Nitrite Negative, Urine Bilirubin Negative, Urine Urobilinogen 4 H, Ur Leukocyte Esterase Negative, Urine RBC 0-5 SEEN, Urine WBC 0 SEEN, Ur Squamous Epith Cells 0 SEEN, Urine Bacteria RARE, Urine Mucus 0 SEEN 05/23/20 19:05: Lactic Acid 2.1 H* 05/23/20 23:40: Lactic Acid 1.7 05/24/20 06:19: WBC 22.2 H, RBC 4.14 L, Hgb 13.1, Hct 38.4 L, MCV 92.8, MCH 31.6, MCHC 34.1, RDW Std Deviation 42.5, RDW Coeff of [place]ora 12.4, Plt Count 204, MPV 9.0 05/24/20 06:19: Sodium 136, Potassium 2.9 L, Chloride 100, Carbon Dioxide 30.0, Anion Gap 6, BUN 20 H, Creatinine 0.82, Estim Creat Clear Calc 70.65, Est GFR (MDRD) Af Amer 117, Est GFR (MDRD) Non-Af 96, BUN/Creatinine Ratio 24.5 H, Glucose 149 H, Calcium 8.9 05/24/20 06:19: Magnesium 1.9 Current Medications Acetaminophen (Tylenol) 1,000 mg PO TID PRN PRN PRN Reason: pain 1-10/fever Last Admin: 05/24/20 00:55 Dose: 1,000 mg Documented by: Al Hydroxide/Mg Hydroxide (Mylanta Ii) 30 ml PO Q4H PRN PRN PRN Reason: HEARTBURN Last Admin: 05/24/20 00:28 Dose: 30 ml Documented by: Atenolol (Tenormin (Beta Sena)) 50 mg PO DAILY [facility] Last Admin: 05/24/20 09:29 Dose: Not Given Documented by: Atorvastatin Calcium (Lipitor) 20 mg PO QHS [facility] Last Admin: 05/23/20 20:49 Dose: 20 mg Documented by: Chlorthalidone (Hygroton) 25 mg PO DAILY [facility] Last Admin: 05/24/20 09:29 Dose: Not Given Documented by: Docusate Sodium (Colace) 200 mg PO BID PRN PRN PRN Reason: Constipation Last Admin: 05/24/20 12:29 Dose: 200 mg Documented by: Enoxaparin Sodium (Lovenox) 40 mg SC DAILY@0600 [facility] Last Admin: 05/24/20 05:30 Dose: 40 mg Documented by: Ergocalciferol (Vitamin D) 50,000 unit PO Q7D [facility] Stop: 07/11/20 17:01 Last Admin: 05/23/20 18:23 Dose: 50,000 unit Documented by: Meropenem 1 gm/ Sodium (Chloride) 120 mls @ 33 mls/hr IV Q8 [facility] Last Infusion: 05/24/20 09:08 Dose: Infused Documented by: Vancomycin IV Pharmacy to Dose (1 ea/ Sodium Chloride) 500 mls @ 250 mls/hr IV X1 PRN; Protocol PRN Reason: Rx to Dose Vancomycin HCl (Vancomycin) 1,000 mg in 200 mls @ 200 mls/hr IV Q12H [facility] Last Infusion: 05/24/20 07:36 Dose: Infused Documented by: Potassium Chloride () 10 meq in 100 mls @ 100 mls/hr IV BOLUS Q1H [facility] Stop: 05/24/20 13:14 Last Admin: 05/24/20 12:19 Dose: 75 mls/hr Documented by: Sodium Chloride () 1,000 mls @ 75 mls/hr IV .[id number] [facility] Stop: 05/24/20 14:30 Last Admin: 05/24/20 10:49 Dose: 75 mls/hr Documented by: Clindamycin Phosphate 600 mg/ (Dextrose) 54 mls @ 100 mls/hr IV PREOP ONE Stop: 05/25/20 08:02 Ondansetron HCl (Zofran) 4 mg IV Q8H PRN PRN PRN Reason: NAUSEA/VOMITING Oxycodone HCl (Oxyir) 5 mg PO Q4H PRN PRN PRN Reason: Pain Score 4-5/10 Last Admin: 05/24/20 12:28 Dose: 5 mg Documented by: Oxycodone HCl (Oxyir) 10 mg PO Q4H PRN PRN PRN Reason: Pain Score 6-10/10 Last Admin: 05/24/20 05:29 Dose: 10 mg Documented by: Polyethylene Glycol (Miralax) 17 gm PO DAILY PRN PRN Reason: Constipation Potassium Chloride (K-Dur) 40 meq PO X1 [facility] Stop: 05/24/20 17:01 Sodium Chloride () 10 - 40 ml IV UD PRN PRN Reason: SALINE FLUSH Last Admin: 05/23/20 18:22 Dose: 10 ml Documented by: Assessment/Plan Left hip intertrochanteric fracture needs TFN when medically able Leukocytosis and gram-positive cocci bacteremia on IV antibiotic Will consult with admitting physician regarding optimal timing of surgery best to have negative cultures before proceeding with Intramedullary rodding. will value infectious disease input regarding optimal timing of surgery. recent CVA plavix held currently on lovenox
--- NOTE | 2020-05-24 13:08 | NURSING ---
dr barth aware of blood culture results
--- NOTE | 2020-05-24 13:45 | ECHOCS_ITS ---
Reason For Study: Murmur, Bacteremia Procedure This was a 2D Doppler, Color Flow transthoracic echocardiogram. The study was technically difficult. The study was technically limited. Limited views were obtained. Contrast injection was performed. Patient has Lt hip fracture, unable to roll onto left side, scanned supine/slightly rolled onto Rt side Very technically difficult due to suboptimal pt positioning. Exam performed portable in patient room. Left Ventricle Normal size and thickness. The estimated ejection fraction is 65 %. Stage 1 diastolic dysfunction. No regional wall motion abnormalities noted. Right Ventricle Normal size and thickness. Normal systolic function. Atria Normal left atrium. Normal right atrium. Normal atrial septum. Mitral Valve The mitral valve is structurally normal. No prolapse or stenosis seen. Tricuspid Valve Normal tricuspid valve. Unable to estimate RV systolic pressure due to insufficient tricuspid regurgitant envelope. Aortic Valve Trisinus/trileaflet aortic valve. Pulmonic Valve Normal pulmonic valve. Great Vessels Normal aortic root. Normal arch. Normal inferior vena cava. Inferior vena cava collapse with sniff. Pericardium/Pleural No pericardial effusion. Medication Diluted definity 3ml given slow IV push to enhance endocardial definition. Doppler Measurements & Calculations MV E max derrek: 57.5 cm/sec Lat Peak E' Derrek: 6.4 cm/sec Med Peak E' Derrek: 4.2 cm/sec MV A max derrek: 112.8 cm/sec E/E' lat: 9.0 E/E' med: 13.7 MV E/A: 0.51 Ao V2 max: 128.9 cm/sec LV V1 max: 87.2 cm/sec Ao max P.6 mmHg LV V1 max P.0 mmHg Ao V2 mean: 92.4 cm/sec Ao mean P.7 mmHg Ao V2 VTI: 23.8 cm Interpretation Summary The estimated ejection fraction is 65 %. Stage 1 diastolic dysfunction. Unable to estimate RV systolic pressure due to insufficient tricuspid regurgitant envelope. The study was technically difficult. Contrast injection was performed. Ordering Physician: Josué Brown Referring Physician: Jessica Santiago Performed By: Bree Oneill RDCS, RAÚLT
[2020-05-24 14:10] VITALS: BP 123/50; PULSE 70; RESP 18; TEMP 36.8; O2SAT 92
--- NOTE | 2020-05-24 14:51 | NURSING ---
TALKED WITH DR DYER ABOUT DR BLANKENSHIP'S COMMUNICATION ABOUT A CONSULT WITH A NEUROLOGIST PT HAD RECENT STROKE- HE IS AWARE AND NO NEW ORDERS- WILL TALK WITH DR BLANKENSHIP HE HAS BEEN PAGED TO LET HIM KNOW THAT DR DYER IS AWARE ON HIS COMMUNICATION
--- NOTE | 2020-05-24 15:21 | CON.PCM_ITS ---
Problem List (1) Bacteremia Status: Acute Reason for Consult: bacteremia Consulted by: Dr. Wallace History of Present Illness: The patient is a 80 year old M who went to ED in [place] 05/23 with c/o abd pain, nausea. Had CT done, discharged home, was feeling better. Later that day, tripped in the parking lot, broke L hip, taken to ED here. Fever to 102.5, bcx now with GPC, started on vanc/sapna. Denies any recent skin infections/abx/abscess. Has hardware in spine and L ankle. Seen by Dr. Berman with ortho here. Reports rash with PCN in the past, does not think he has gotten any other beta lactams. Full ROS performed and neg except as noted above. - Medical History Past Medical History (Chronic Problems): Chronic Problems Acute stroke (Chronic) HTN (hypertension) (Chronic) April 2020 HLD (hyperlipidemia) (Chronic) Allergies/Adverse Reactions: Allergies Penicillins Allergy (Verified 05/23/20 11:35) Hives adhesive tape Adverse Reaction (Verified 05/23/20 11:35) Other lawton blisters Home Medications: Ambulatory Orders Medication Instructions Recorded Acetaminophen [Tylenol] 1,000 mg PO TID PRN PRN 11/13/18 Aspirin [Aspir 81] 81 mg PO DAILY 11/13/18 Cholecalciferol (VIT D3) [Vitamin 2,000 unit PO DAILY 11/13/18 D3] Atenolol/Chlorthalidone 1 ea PO DAILY 05/01/20 [Atenolol-Chlorthalidone 50-25] Clopidogrel Bisulfate [Clopidogrel] 75 mg PO DAILY 05/23/20 Simvastatin 40 mg PO QHS 05/23/20 - Social History SMOKING STATUS:: Former smoker Vital Signs Temp Pulse Resp BP Pulse Ox 98.2 F 70 18 123/50 H 92 05/24/20 14:10 05/24/20 14:10 05/24/20 14:10 05/24/20 14:10 05/24/20 14:10 Oxygen Flow Rate (L/min) 2 Oxygen Delivery Method Room Air Weight: 89.403 kg Body Mass Index (BMI) 29.0 Finger Stick Blood Glucose 90 Microbiology Past 72 Hours 05/23/20 19:15 Bacteria Detection (PCR) - Preliminary Blood Culture (Wb) - Left Wrist Blood Culture - Preliminary 05/23/20 19:25 Blood Culture - Preliminary Blood Culture (Wb) - Right Forearm Laboratory Tests Past 24 Hrs 05/23/20 05/23/20 05/23/20 14:55 15:10 16:45 WBC RBC Hgb Hct MCV MCH MCHC RDW Std Deviation RDW Coeff of Flora Plt Count MPV Sodium Potassium Chloride Carbon Dioxide Anion Gap BUN Creatinine Estim Creat Clear Calc Est GFR (MDRD) Af Amer Est GFR (MDRD) Non-Af BUN/Creatinine Ratio Glucose Lactic Acid 2.0 Calcium Magnesium Urine Color Yellow Urine Clarity Clear Urine pH 6.0 Ur Specific [place] 1.010 Urine Protein 30 H Urine Glucose (UA) Normal Urine Ketones 15 H Urine Occult Blood 150 H Urine Nitrite Negative Urine Bilirubin Negative Urine Urobilinogen 4 H Ur Leukocyte Esterase Negative Urine RBC 0-5 SEEN Urine WBC 0 SEEN Ur Squamous Epith Cells 0 SEEN Urine Bacteria RARE Urine Mucus 0 SEEN COVID-19 (TARA) Negative 05/23/20 05/23/20 05/24/20 19:05 23:40 06:19 WBC 22.2 H RBC 4.14 L Hgb 13.1 Hct 38.4 L MCV 92.8 MCH 31.6 MCHC 34.1 RDW Std Deviation 42.5 RDW Coeff of Flora 12.4 Plt Count 204 MPV 9.0 Sodium Potassium Chloride Carbon Dioxide Anion Gap BUN Creatinine Estim Creat Clear Calc Est GFR (MDRD) Af Amer Est GFR (MDRD) Non-Af BUN/Creatinine Ratio Glucose Lactic Acid 2.1 H* 1.7 Calcium Magnesium Urine Color Urine Clarity Urine pH Ur Specific [place] Urine Protein Urine Glucose (UA) Urine Ketones Urine Occult Blood Urine Nitrite Urine Bilirubin Urine Urobilinogen Ur Leukocyte Esterase Urine RBC Urine WBC Ur Squamous Epith Cells Urine Bacteria Urine Mucus COVID-19 (TARA) 05/24/20 05/24/20 06:19 06:19 WBC RBC Hgb Hct MCV MCH MCHC RDW Std Deviation RDW Coeff of Flora Plt Count MPV Sodium 136 Potassium 2.9 L Chloride 100 Carbon Dioxide 30.0 Anion Gap 6 BUN 20 H Creatinine 0.82 Estim Creat Clear Calc 70.65 Est GFR (MDRD) Af Amer 117 Est GFR (MDRD) Non-Af 96 BUN/Creatinine Ratio 24.5 H Glucose 149 H Lactic Acid Calcium 8.9 Magnesium 1.9 Urine Color Urine Clarity Urine pH Ur Specific [place] Urine Protein Urine Glucose (UA) Urine Ketones Urine Occult Blood Urine Nitrite Urine Bilirubin Urine Urobilinogen Ur Leukocyte Esterase Urine RBC Urine WBC Ur Squamous Epith Cells Urine Bacteria Urine Mucus COVID-19 (TARA) - Other Studies Radiology: [] reviewed Other Studies: [] Route of nutrition/ use of supplements: [] Nutritional Intake: [] IV Site: [] Ribeiro Catheter: [] - Physical Exam General: Alert, Cooperative, No apparent distress HEENT: Atraumatic, PERRLA, EOMI, - - hard of hearing Neck: Supple, No Nodes Lungs: Clear to auscultation, Normal air movement Cardiovascular: Regular rate, Regular Rhythm Abdomen: Soft, Non Tender, Non-Distended Extremities: No edema Skin: No rashes, - - no splinter hemorrhages on hands IV Site: Peripheral Musculoskeletal: - - LLE in brace Neurological: Cranial nerves II-XII grossly intact - Assessment/Plan Antibiotics: [] Assessment/Plan: [] GPC bacteremia, L hip fracture - repeat bcx pending. Will order echo. Remote h/o mssa skin infection. Reviewed [place] records. Reports rash with PCN. Will narrow abx to vanc/cefazolin and monitor for reaction. If possible, would recommend delaying hip surgery at least until Bcx clear 48-72 hours to avoid infecting any hardware placed. Will follow, thank you.
[2020-05-24] MEDS: 0.9% Saline Lock 10 ML Syringe IV (15:58)
[2020-05-24] MEDS: Ondansetron 4 MG/2 ML Vial IV (15:58)
[2020-05-24 17:05] VITALS: BP 115/67; PULSE 77; RESP 16; TEMP 36.7; O2SAT 94
[2020-05-24 21:34] VITALS: BP 141/83; PULSE 82; RESP 18; TEMP 36.6; O2SAT 93
[2020-05-24] MEDS: Cefazolin 2 GM in 0.9% Normal Saline 100 ML IV (21:49)
[2020-05-24] MEDS: Atorvastatin Calcium 20 MG Tablet PO (21:50)
[2020-05-25] VITALS (7 sets, daily range): BP systolic 101–134; BP diastolic 54–78; PULSE 56–71; RESP 17–18; TEMP 36.9–37.3; O2SAT 91–97
[2020-05-25] MEDS: Cefazolin 2 GM in 0.9% Normal Saline 100 ML IV ×3 (05:41→21:41)
[2020-05-25] MEDS: Enoxaparin 40 MG/0.4 ML Syringe SC (05:44)
[2020-05-25] MEDS: 0.9% Saline Lock 10 ML Syringe IV (06:07)
[2020-05-25 06:24] LABS: Hematocrit 37.1 % (40-54); Hemoglobin 12.5 g/dL (13.0-16.5); Mean Corp Hgb Conc 33.7 g/dL (32-36); Mean Corpuscular Hgb 31.1 pg (27.0-32.0); Mean Corpuscular Volume 92.3 fL (80-94); Mean Platelet Vol. 8.8 fl (6.2-12.0); Platelet Count 181 K/mm3 (150-450); RBC Distribution Width CV 12.1 % (11.6-14.6); RBC Distribution Width SD 41.2 fl (35.1-43.9); Red Blood Count 4.02 M/mm3 (4.6-6.2); White Blood Count 15.5 K/mm3 (4.4-11.0)
[2020-05-25] MEDS: Docusate Sodium 100 MG Capsule 200 MG PO (06:47)
[2020-05-25] MEDS: oxyCODONE 5 MG Tablet 10 MG PO (06:47)
[2020-05-25 06:58] LABS: Anion Gap 4 (5-15); BUN 15 mg/dL (7-18); BUN/Creat Ratio 21.4 RATIO (10-20); Calcium,Total 8.9 mg/dL (8.5-10.1); Chloride 99 mmol/L (98-107); EST Glomerular Filtration Rate 115 mL/min (>60); Est Glom Filt Rate - Afr Amer 139 mL/min (>60); Estimated Creatinine Clearance 57.93 ml/min; Glucose 123 mg/dL (74-106); Potassium 3.6 mmol/L (3.5-5.1); Sodium Level 133 mmol/L (136-145)
[2020-05-25 07:00] LABS: Vancomycin, Trough Level 10.1 ug/mL (5.0-15.0)
[2020-05-25] MEDS: Vancomycin IV 1,000 MG/200 ML BAG 200 MG IV (07:18)
[2020-05-25] MEDS: Chlorthalidone 50 MG Tablet 25 MG PO (09:50)
[2020-05-25] MEDS: Atenolol 50 MG Tablet PO (09:50)
--- NOTE | 2020-05-25 10:10 | PCM.PN.ID ---
Patient Problems: Active and Suspected Problems Bacteremia (Acute) Subjective: Feeling ok, no fever. - Physical Exam Vitals/I&O's: Vital Signs Temp Pulse Resp BP Pulse Ox 98.4 F 71 18 107/54 L 91 05/25/20 09:13 05/25/20 09:13 05/25/20 09:13 05/25/20 09:13 05/25/20 09:13 Oxygen Flow Rate (L/min) 2 Oxygen Delivery Method Room Air Weight: 89.403 kg Body Mass Index (BMI) 29.0 Finger Stick Blood Glucose 90 Intake and Output for Last 24 Hours 05/23/20 05/24/20 05/25/20 23:59 23:59 23:59 Intake Total 1060 / 1460 3071.25 / 3071.25 614 / 614 Output Total 200 / 550 1478 / 1478 350 / 350 Balance 860 / 910 1593.25 / 1593.25 264 / 264 General: Alert, Cooperative, No apparent distress Lungs: Clear to auscultation, Normal air movement Cardiovascular: Regular rate, Regular Rhythm Abdomen: Soft, Non Tender, Non-Distended Skin: No rashes Microbiology Past 72 Hours 05/23/20 19:15 Blood Culture (Wb) - Left Wrist Bacteria Detection (PCR) - Preliminary 05/23/20 19:15 Blood Culture (Wb) - Left Wrist Blood Culture - Preliminary GPC Poss Enterococcus sp 05/23/20 19:25 Blood Culture (Wb) - Right Forearm Blood Culture - Preliminary GPC Poss Enterococcus sp 05/24/20 13:56 Blood Culture (Wb) - Left Hand Blood Culture - Preliminary 05/24/20 13:56 Blood Culture (Wb) - Right Hand Blood Culture - Preliminary Laboratory Results 05/24/20 06:19: Magnesium 1.9 05/25/20 06:12: Vancomycin Trough 10.1 05/25/20 06:12: WBC 15.5 H, RBC 4.02 L, Hgb 12.5 L, Hct 37.1 L, MCV 92.3, MCH 31.1, MCHC 33.7, RDW Std Deviation 41.2, RDW Coeff of Flora 12.1, Plt Count 181, MPV 8.8 05/25/20 06:12: Sodium 133 L, Potassium 3.6, Chloride 99, Carbon Dioxide 30.0, Anion Gap 4 L, BUN 15, Creatinine 0.70, Estim Creat Clear Calc 57.93, Est GFR (MDRD) Af Amer 139, Est GFR (MDRD) Non-Af 115, BUN/Creatinine Ratio 21.4 H, Glucose 123 H, Calcium 8.9 Current Medications Acetaminophen (Tylenol) 1,000 mg PO TID PRN PRN PRN Reason: pain 1-10/fever Last Admin: 05/24/20 00:55 Dose: 1,000 mg Documented by: Al Hydroxide/Mg Hydroxide (Mylanta Ii) 30 ml PO Q4H PRN PRN PRN Reason: HEARTBURN Last Admin: 05/24/20 21:40 Dose: 30 ml Documented by: Atenolol (Tenormin (Beta Sena)) 50 mg PO DAILY [facility] Last Admin: 05/25/20 09:50 Dose: 50 mg Documented by: Atorvastatin Calcium (Lipitor) 20 mg PO QHS [facility] Last Admin: 05/24/20 21:50 Dose: 20 mg Documented by: Chlorthalidone (Hygroton) 25 mg PO DAILY [facility] Last Admin: 05/25/20 09:50 Dose: 25 mg Documented by: Docusate Sodium (Colace) 200 mg PO BID PRN PRN PRN Reason: Constipation Last Admin: 05/25/20 06:47 Dose: 200 mg Documented by: Enoxaparin Sodium (Lovenox) 40 mg SC DAILY@0600 [facility] Last Admin: 05/25/20 05:44 Dose: 40 mg Documented by: Ergocalciferol (Vitamin D) 50,000 unit PO Q7D [facility] Stop: 07/11/20 17:01 Last Admin: 05/23/20 18:23 Dose: 50,000 unit Documented by: Vancomycin IV Pharmacy to Dose (1 ea/ Sodium Chloride) 500 mls @ 250 mls/hr IV X1 PRN; Protocol PRN Reason: Rx to Dose Vancomycin HCl (Vancomycin) 1,000 mg in 200 mls @ 200 mls/hr IV Q12H [facility] Last Infusion: 05/25/20 09:11 Dose: Infused Documented by: Cefazolin Sodium 2 gm/ Sodium (Chloride) 110 mls @ 150 mls/hr IV Q8 [facility] Last Infusion: 05/25/20 06:25 Dose: Infused Documented by: Ondansetron HCl (Zofran) 4 mg IV Q8H PRN PRN PRN Reason: NAUSEA/VOMITING Last Admin: 05/24/20 15:58 Dose: 4 mg Documented by: Oxycodone HCl (Oxyir) 5 mg PO Q4H PRN PRN PRN Reason: Pain Score 4-5/10 Last Admin: 05/24/20 14:20 Dose: 5 mg Documented by: Oxycodone HCl (Oxyir) 10 mg PO Q4H PRN PRN PRN Reason: Pain Score 6-10/10 Last Admin: 05/25/20 06:47 Dose: 10 mg Documented by: Polyethylene Glycol (Miralax) 17 gm PO DAILY PRN PRN Reason: Constipation Sodium Chloride () 10 - 40 ml IV UD PRN PRN Reason: SALINE FLUSH Last Admin: 05/25/20 06:07 Dose: 10 ml Documented by: Medical Necessity - Tobacco Use Smoking Status: Former smoker Route of nutrition/ use of supplements: [] Nutritional Intake: [] IV Site: [] Ribeiro Catheter: [] - Assessment/Plan Antibiotics: [] Assessment/Plan: [] enterococcus-like bacteremia, L hip fracture - repeat bcx neg so far. Poor quality TTE, but no veg seen. Remote h/o mssa skin infection. Reports rash with PCN. No issues with vanc/cefazolin so far. It is reassuring that this does not look like staph aureus at this point. May be candidate for surgery tomorrow if repeat bcx remain neg; enterococcus typically clears quickly from the blood. Will follow
--- NOTE | 2020-05-25 10:20 | PN_ITS ---
Patient Problems: Active and Suspected Problems Bacteremia (Acute) Reason for Visit: hip fxr Subjective: No new issues. Vitals/I&O's: Vital Signs Temp Pulse Resp BP Pulse Ox 36.9 C 71 18 107/54 L 91 05/25/20 09:13 05/25/20 09:30 05/25/20 09:13 05/25/20 09:13 05/25/20 09:13 Oxygen Flow Rate (L/min) 2 Oxygen Delivery Method Room Air Weight: 89.403 kg Body Mass Index (BMI) 29.0 Finger Stick Blood Glucose 90 Intake and Output for Last 24 Hours 05/23/20 05/24/20 05/25/20 23:59 23:59 23:59 Intake Total 1060 / 1460 3071.25 / 3071.25 614 / 614 Output Total 200 / 550 1478 / 1478 350 / 350 Balance 860 / 910 1593.25 / 1593.25 264 / 264 General: Alert, No apparent distress HEENT: Atraumatic, Normocephalic Oral: Moist Mucosa, No Gingival or Mucosal Lesions/ Ulcerations Neck: No Nodes, Thyroid Normal Size and Texture Lungs: Clear to auscultation, Normal air movement, No rhonchi, No wheeze, No rales Cardiovascular: Regular rate, Regular Rhythm, Normal S1, Normal S2, No murmurs Abdomen: Bowel Sounds Present, Soft, Non Tender, Non-Distended, No Hepato- splenomegaly Extremities: No edema, No Calf Tenderness, - - no left ankle tenderness Skin: No rashes, No breakdown Musculoskeletal: - - no left ankle tenderness nor swelling. no reproducbile back pain. Neurological: Muscle tone normal, Coordination normal Psych/Mental Status: Normal Affect, Appropriate Microbiology Past 72 Hours 05/23/20 19:15 Blood Culture (Wb) - Left Wrist Bacteria Detection (PCR) - Preliminary 05/23/20 19:15 Blood Culture (Wb) - Left Wrist Blood Culture - Preliminary GPC Poss Enterococcus sp 05/23/20 19:25 Blood Culture (Wb) - Right Forearm Blood Culture - Preliminary GPC Poss Enterococcus sp 05/24/20 13:56 Blood Culture (Wb) - Left Hand Blood Culture - Preliminary 05/24/20 13:56 Blood Culture (Wb) - Right Hand Blood Culture - Preliminary Laboratory Results 05/24/20 06:19: Magnesium 1.9 05/25/20 06:12: Vancomycin Trough 10.1 05/25/20 06:12: WBC 15.5 H, RBC 4.02 L, Hgb 12.5 L, Hct 37.1 L, MCV 92.3, MCH 31.1, MCHC 33.7, RDW Std Deviation 41.2, RDW Coeff of Flora 12.1, Plt Count 181, MPV 8.8 05/25/20 06:12: Sodium 133 L, Potassium 3.6, Chloride 99, Carbon Dioxide 30.0, Anion Gap 4 L, BUN 15, Creatinine 0.70, Estim Creat Clear Calc 57.93, Est GFR (MDRD) Af Amer 139, Est GFR (MDRD) Non-Af 115, BUN/Creatinine Ratio 21.4 H, Glucose 123 H, Calcium 8.9 Current Medications Acetaminophen (Tylenol) 1,000 mg PO TID PRN PRN PRN Reason: pain 1-10/fever Last Admin: 05/24/20 00:55 Dose: 1,000 mg Documented by: Al Hydroxide/Mg Hydroxide (Mylanta Ii) 30 ml PO Q4H PRN PRN PRN Reason: HEARTBURN Last Admin: 05/24/20 21:40 Dose: 30 ml Documented by: Atenolol (Tenormin (Beta Sena)) 50 mg PO DAILY COUNT [facility] Last Admin: 05/25/20 09:50 Dose: 50 mg Documented by: Atorvastatin Calcium (Lipitor) 20 mg PO QHS COUNT [facility]CLUD[facility] Last Admin: 05/24/20 21:50 Dose: 20 mg Documented by: Chlorthalidone (Hygroton) 25 mg PO DAILY COUNT [facility]CLUD[facility] Last Admin: 05/25/20 09:50 Dose: 25 mg Documented by: Docusate Sodium (Colace) 200 mg PO BID PRN PRN PRN Reason: Constipation Last Admin: 05/25/20 06:47 Dose: 200 mg Documented by: Enoxaparin Sodium (Lovenox) 40 mg SC DAILY@0600 COUNT [facility]CLUD[facility] Last Admin: 05/25/20 05:44 Dose: 40 mg Documented by: Ergocalciferol (Vitamin D) 50,000 unit PO Q7D COUNT [facility]CLUDES [facility] Stop: 07/11/20 17:01 Last Admin: 05/23/20 18:23 Dose: 50,000 unit Documented by: Vancomycin IV Pharmacy to Dose (1 ea/ Sodium Chloride) 500 mls @ 250 mls/hr IV X1 PRN; Protocol PRN Reason: Rx to Dose Vancomycin HCl (Vancomycin) 1,000 mg in 200 mls @ 200 mls/hr IV Q12H COUNT [facility]CLUD[facility] Last Infusion: 05/25/20 09:11 Dose: Infused Documented by: Cefazolin Sodium 2 gm/ Sodium (Chloride) 110 mls @ 150 mls/hr IV Q8 [facility] Last Infusion: 05/25/20 06:25 Dose: Infused Documented by: Ondansetron HCl (Zofran) 4 mg IV Q8H PRN PRN PRN Reason: NAUSEA/VOMITING Last Admin: 05/24/20 15:58 Dose: 4 mg Documented by: Oxycodone HCl (Oxyir) 5 mg PO Q4H PRN PRN PRN Reason: Pain Score 4-5/10 Last Admin: 05/24/20 14:20 Dose: 5 mg Documented by: Oxycodone HCl (Oxyir) 10 mg PO Q4H PRN PRN PRN Reason: Pain Score 6-10/10 Last Admin: 05/25/20 06:47 Dose: 10 mg Documented by: Polyethylene Glycol (Miralax) 17 gm PO DAILY PRN PRN Reason: Constipation Sodium Chloride () 10 - 40 ml IV UD PRN PRN Reason: SALINE FLUSH Last Admin: 05/25/20 06:07 Dose: 10 ml Documented by: STROKE Vital Signs/Narrative: Vital Signs Temp Pulse Resp BP Pulse Ox 05/25/20 09:30 71 05/25/20 09:13 36.9 C 71 18 107/54 L 91 Medical Necessity - Tobacco Use Smoking Status: Former smoker Assessment/Plan All Active Problems Bacteremia (Acute) 1. Acute left hip fracture: * Status post mechanical fall. * NSQIP shows patient is of below average risk for perioperative complications. * 25 hydroxy D at 25. Started ergocalciferol * surgery on hold given bacteremia, per ID, may be able to have surgery 05/26 2. Severe sepsis: * 2/2 bacteremia * BCx on 05/23 gram stain showing GPC * repeat BCx on 05/24 * on meropenem and vancomycin * ID consult 3. Encephalopathy: * suspect toxic given narcotics, but likely enhanced by severe sepsis * resolved 4. Bacteremia: * as for #2 * repeat Cx * if persistent bacteremia, consider TTE 5. CVA: * ASA and clopidogrel currently held for impending surgery. 6. VTE prophylaxis: enoxaparin Inpatient E&M: 19098 [facility] Hosp L3
--- NOTE | 2020-05-25 11:08 | PCM.RX.CS ---
Consult Pharmacy has been consulted to manage selected antiobiotic: Vancomycin Type of Consult: Follow-up Suspected Infection: Bacteremia Labs: Sodium 133 mmol/L (136-145) L 05/25/20 06:12 Potassium 3.6 mmol/L (3.5-5.1) 05/25/20 06:12 Chloride 99 mmol/L (98-107) 05/25/20 06:12 Carbon Dioxide 30.0 mmol/L (21.0-32.0) 05/25/20 06:12 Anion Gap 4 (5-15) L 05/25/20 06:12 BUN 15 mg/dL (7-18) 05/25/20 06:12 Creatinine 0.70 mg/dL (0.70-1.30) 05/25/20 06:12 Est GFR (MDRD) Af Amer 139 mL/min (>60) 05/25/20 06:12 Est GFR (MDRD) Non-Af 115 mL/min (>60) 05/25/20 06:12 BUN/Creatinine Ratio 21.4 RATIO (10-20) H 05/25/20 06:12 Glucose 123 mg/dL (74-106) H 05/25/20 06:12 Vancomycin Trough 10.1 ug/mL (5.0-15.0) 05/25/20 06:12 Microbiology: Microbiology 05/23/20 19:15 Blood Culture (Wb) - Left Wrist Bacteria Detection (PCR) - Preliminary 05/23/20 19:15 Blood Culture (Wb) - Left Wrist Blood Culture - Preliminary GPC Poss Enterococcus sp 05/23/20 19:25 Blood Culture (Wb) - Right Forearm Blood Culture - Preliminary GPC Poss Enterococcus sp 05/24/20 13:56 Blood Culture (Wb) - Left Hand Blood Culture - Preliminary 05/24/20 13:56 Blood Culture (Wb) - Right Hand Blood Culture - Preliminary Goal Trough: 15-20 mcg/mL Pharmacy Plan for Drug Dosing: VANCOMYCIN LEVEL RECEIVED Current Vancomycin Dose: 1000mg IV Q12hr Number of Doses Received: 1 loading dose +2 scheduled Vancomycin Level: 10.2 Hours Since Last Dose: 11.5hr Renal Function: SCr 0.7 CrCl 58 mL/min Renal Function Trend: improvement from admission (SCr was 0.89) Lab/Micro: BCx GPC, possible enterococcus sp. (no sens yet) Vancomycin Plan/Comments: Increase vancomycin alcaraz to 1500mg IV Q12hrs. Patient already got morning dose of 1g, will start 1500mg IV Q12hr this evening, 05/25 @1900. torugh prior to 4th dose of new regimen per protocol. Pending Level: 05/27/20 @0630 Pharmacy Service will continue to monitor and adjust dosing as required.
[2020-05-25] MEDS: oxyCODONE 5 MG Tablet PO ×2 (15:42→20:30)
[2020-05-25] MEDS: Polyethylene Glycol 3350 17 GM PACKET PO (21:45)
[2020-05-25] MEDS: Atorvastatin Calcium 20 MG Tablet PO (21:46)
[2020-05-26] MEDS: Mag Hydrox/Al Hydrox/Simeth 30 ML UDC PO (00:31)
[2020-05-26] MEDS: oxyCODONE 5 MG Tablet PO (00:33)
[2020-05-26 02:40] VITALS: BP 133/86; PULSE 61; RESP 18; TEMP 36.3; O2SAT 97
[2020-05-26] MEDS: oxyCODONE 5 MG Tablet 10 MG PO ×3 (05:04→22:13)
[2020-05-26] MEDS: Cefazolin 2 GM in 0.9% Normal Saline 100 ML IV (05:39)
--- NOTE | 2020-05-26 06:00 | EKG12_ITS ---
Test Reason : AM EKG Blood Pressure : / mmHG Vent. Rate : 059 BPM Atrial Rate : 059 BPM P-R Int : 180 ms QRS Dur : 074 ms QT Int : 474 ms P-R-T Axes : 071 065 045 degrees QTc Int : 469 ms Sinus bradycardia with Premature supraventricular complexes Nonspecific ST abnormality Abnormal ECG When compared with ECG of 02-MAY-2020 04:55, Premature supraventricular complexes are now Present Nonspecific T wave abnormality now evident in Anterior leads Confirmed by CHAYITO GARCIA ([id number]), make up editor FRANKIE GILLESPIE ([id number]) on 06/01/2020 9:10:19 AM Referred By: MANISHA Confirmed By:CHAYITO GARCIA
[2020-05-26 06:31] LABS: Absolute Lymphocyte Count 1.22 X10^3/uL (0.83-4.51); Absolute Neutrophil Count 8.8 X10^3/uL (2.0-7.7); Basophil# 0.03 X10^3/uL; Basophil% 0.3 % (0-1); Eosinophil# 0.42 X10^3/uL; Eosinophils% 3.7 % (0-5); Hematocrit 35.3 % (40-54); Hemoglobin 11.8 g/dL (13.0-16.5); Lymphocyte # 1.22 X10^3/ul (4.0); Lymphocyte % 10.7 % (19-41); Mean Corp Hgb Conc 33.4 g/dL (32-36); Mean Corpuscular Hgb 31.4 pg (27.0-32.0); Mean Corpuscular Volume 93.9 fL (80-94); Mean Platelet Vol. 8.9 fl (6.2-12.0); Monocyte# 0.88 X10^3/uL; Monocyte% 7.7 % (0-10); NRBC Flagged by Analyzer 0 % (0-5); Neutrophil # 8.82 X10^3/uL (2.7-7.7); Neutrophil % 77.1 % (47-70); Platelet Count 186 K/mm3 (150-450); RBC Distribution Width CV 12.2 % (11.6-14.6); RBC Distribution Width SD 41.7 fl (35.1-43.9); Red Blood Count 3.76 M/mm3 (4.6-6.2); White Blood Count 11.4 K/mm3 (4.4-11.0)
[2020-05-26 06:49] LABS: Anion Gap 5 (5-15); BUN 12 mg/dL (7-18); BUN/Creat Ratio 18.2 RATIO (10-20); Calcium,Total 8.6 mg/dL (8.5-10.1); Chloride 98 mmol/L (98-107); Creatinine, Serum 0.66 mg/dL (0.70-1.30); EST Glomerular Filtration Rate 123 mL/min (>60); Est Glom Filt Rate - Afr Amer 149 mL/min (>60); Estimated Creatinine Clearance 57.93 ml/min; Glucose 116 mg/dL (74-106); Potassium 3.1 mmol/L (3.5-5.1); Sodium Level 135 mmol/L (136-145)
[2020-05-26 08:00] VITALS: BP 115/63; PULSE 55; RESP 18; TEMP 37.1; O2SAT 100
--- NOTE | 2020-05-26 08:53 | PCM.PN.ORT ---
Patient Problems: Active and Suspected Problems Bacteremia (Acute) Subjective: Patient seen doing okay pain controlled feels better - Physical Exam Vitals/I&O's: Vital Signs Temp Pulse Resp BP Pulse Ox 97.3 F L 61 18 133/86 H 97 05/26/20 02:40 05/26/20 02:40 05/26/20 02:40 05/26/20 02:40 05/26/20 02:40 Oxygen Flow Rate (L/min) 2 Oxygen Delivery Method Nasal Cannula Weight: 197 lb 1.6 oz Body Mass Index (BMI) 29.0 Finger Stick Blood Glucose 90 Intake and Output for Last 24 Hours 05/24/20 05/25/20 05/26/20 23:59 23:59 23:59 Intake Total 3071.25 / 3071.25 2724 / 2724 Output Total 1478 / 1478 1525 / 1525 Balance 1593.25 / 1593.25 1199 / 1199 General: Cooperative, No apparent distress Extremities: - - Woodall's traction not providing any traction with current set up. Examination left lower extremity remains the same no sign of infection Microbiology Past 72 Hours 05/23/20 19:25 Blood Culture (Wb) - Right Forearm Blood Culture - Preliminary GPC Poss Enterococcus sp 05/24/20 13:56 Blood Culture (Wb) - Left Hand Blood Culture - Preliminary 05/24/20 13:56 Blood Culture (Wb) - Right Hand Blood Culture - Final 05/23/20 19:15 Blood Culture (Wb) - Left Wrist Bacteria Detection (PCR) - Preliminary 05/23/20 19:15 Blood Culture (Wb) - Left Wrist Blood Culture - Preliminary Enterococcus casseliflavus (D) Laboratory Results 05/26/20 06:05: WBC 11.4 H, RBC 3.76 L, Hgb 11.8 L, Hct 35.3 L, MCV 93.9, MCH 31.4, MCHC 33.4, RDW Std Deviation 41.7, RDW Coeff of Flora 12.2, Plt Count 186, MPV 8.9, Immature Gran % (Auto) 0.500, Neut % (Auto) 77.1 H, Lymph % (Auto) 10.7 L, Ceiba % (Auto) 7.7, Eos % (Auto) 3.7, Baso % (Auto) 0.3, Absolute Neuts (auto) 8.8 H, Absolute Lymphs (auto) 1.22, Nucleated RBC % 0 05/26/20 06:05: Sodium 135 L, Potassium 3.1 L, Chloride 98, Carbon Dioxide 32.0, Anion Gap 5, BUN 12, Creatinine 0.66 L, Estim Creat Clear Calc 57.93, Est GFR (MDRD) Af Amer 149, Est GFR (MDRD) Non-Af 123, BUN/Creatinine Ratio 18.2, Glucose 116 H, Calcium 8.6 05/26/20 06:05: Blood Type A POSITIVE, Antibody Screen NEGATIVE Current Medications Acetaminophen (Tylenol) 1,000 mg PO TID PRN PRN PRN Reason: pain 1-10/fever Last Admin: 05/24/20 00:55 Dose: 1,000 mg Documented by: Al Hydroxide/Mg Hydroxide (Mylanta Ii) 30 ml PO Q4H PRN PRN PRN Reason: HEARTBURN Last Admin: 05/26/20 00:31 Dose: 30 ml Documented by: Atenolol (Tenormin (Beta Sena)) 50 mg PO DAILY [facility] Last Admin: 05/25/20 09:50 Dose: 50 mg Documented by: Atorvastatin Calcium (Lipitor) 20 mg PO QHS [facility] Last Admin: 05/25/20 21:46 Dose: 20 mg Documented by: Chlorthalidone (Hygroton) 25 mg PO DAILY [facility] Last Admin: 05/25/20 09:50 Dose: 25 mg Documented by: Docusate Sodium (Colace) 200 mg PO BID PRN PRN PRN Reason: Constipation Last Admin: 05/25/20 06:47 Dose: 200 mg Documented by: Enoxaparin Sodium (Lovenox) 40 mg SC DAILY@0600 [facility] Last Admin: 05/25/20 05:44 Dose: 40 mg Documented by: Ergocalciferol (Vitamin D) 50,000 unit PO Q7D [facility] Stop: 07/11/20 17:01 Last Admin: 05/23/20 18:23 Dose: 50,000 unit Documented by: Vancomycin IV Pharmacy to Dose (1 ea/ Sodium Chloride) 500 mls @ 250 mls/hr IV X1 PRN; Protocol PRN Reason: Rx to Dose Cefazolin Sodium 2 gm/ Sodium (Chloride) 110 mls @ 150 mls/hr IV Q8 [facility] Last Admin: 05/26/20 05:39 Dose: 150 mls/hr Documented by: Vancomycin HCl 1,500 mg/ (Sodium Chloride) 530 mls @ 250 mls/hr IV Q12H [facility] Last Admin: 05/26/20 07:17 Dose: 250 mls/hr Documented by: Ondansetron HCl (Zofran) 4 mg IV Q8H PRN PRN PRN Reason: NAUSEA/VOMITING Last Admin: 05/24/20 15:58 Dose: 4 mg Documented by: Oxycodone HCl (Oxyir) 5 mg PO Q4H PRN PRN PRN Reason: Pain Score 4-5/10 Last Admin: 05/26/20 00:33 Dose: 5 mg Documented by: Oxycodone HCl (Oxyir) 10 mg PO Q4H PRN PRN PRN Reason: Pain Score 6-10/10 Last Admin: 05/26/20 05:04 Dose: 10 mg Documented by: Polyethylene Glycol (Miralax) 17 gm PO DAILY PRN PRN Reason: Constipation Last Admin: 05/25/20 21:45 Dose: 17 gm Documented by: Sodium Chloride () 10 - 40 ml IV UD PRN PRN Reason: SALINE FLUSH Last Admin: 05/25/20 06:07 Dose: 10 ml Documented by: Medical Necessity - Tobacco Use Smoking Status: Former smoker Assessment/Plan All Active Problems Bacteremia (Acute) Left hip intertrochanteric fracture Recent CVA on Plavix last dose Friday awaiting neurological clearance and will need to wait at least 5 days after last dose before proceeding with hip surgery. Appreciate neurological clearance on how long we can hold Plavix after surgery to avoid postoperative complication of hematoma, weighing recent CVA. typically use Eliquis 2.5 mg twice daily for 3 postoperative weeks then resume plavix, not sure if this is acceptable in this case. Gram-positive bacteremia on IV antibiotics per infectious disease no source identified unsure of duration of treatment. Plan to proceed with left hip TFN Friday if okay per consultants and admitting. MELANIE ricardo.
[2020-05-26 10:00] VITALS: RESP 18
[2020-05-26] MEDS: Atenolol 50 MG Tablet PO (10:13)
[2020-05-26] MEDS: Enoxaparin 40 MG/0.4 ML Syringe SC (10:13)
--- NOTE | 2020-05-26 10:50 | PN_ITS ---
Patient Problems: Active and Suspected Problems Bacteremia (Acute) Reason for Visit: hip fxr Subjective: No new complaints Vitals/I&O's: Vital Signs Temp Pulse Resp BP Pulse Ox 36.3 C L 61 18 133/86 H 97 05/26/20 02:40 05/26/20 02:40 05/26/20 02:40 05/26/20 02:40 05/26/20 02:40 Oxygen Flow Rate (L/min) 2 Oxygen Delivery Method Nasal Cannula Weight: 89.403 kg Body Mass Index (BMI) 29.0 Finger Stick Blood Glucose 90 Intake and Output for Last 24 Hours 05/24/20 05/25/20 05/26/20 23:59 23:59 23:59 Intake Total 3071.25 / 3071.25 2724 / 2724 Output Total 1478 / 1478 1525 / 1525 Balance 1593.25 / 1593.25 1199 / 1199 General: Alert, No apparent distress HEENT: Atraumatic, Normocephalic Oral: Moist Mucosa, No Gingival or Mucosal Lesions/ Ulcerations Neck: No Nodes, Thyroid Normal Size and Texture Lungs: Clear to auscultation, Normal air movement, No rhonchi, No wheeze Cardiovascular: Regular rate, Regular Rhythm, Normal S1, Normal S2, No murmurs Abdomen: Bowel Sounds Present, Soft, Non Tender, Non-Distended, No Hepato- splenomegaly Extremities: No edema, No Calf Tenderness Skin: No rashes, No breakdown Psych/Mental Status: Normal Affect, Appropriate Microbiology Past 72 Hours 05/23/20 16:45 Urine, Clean Catch Urine Culture - Final Mixed Gram Positive Organisms 05/23/20 19:25 Blood Culture (Wb) - Right Forearm Blood Culture - Preliminary GPC Poss Enterococcus sp 05/24/20 13:56 Blood Culture (Wb) - Left Hand Blood Culture - Preliminary 05/24/20 13:56 Blood Culture (Wb) - Right Hand Blood Culture - Final 05/23/20 19:15 Blood Culture (Wb) - Left Wrist Bacteria Detection (PCR) - Preliminary 05/23/20 19:15 Blood Culture (Wb) - Left Wrist Blood Culture - Preliminary Enterococcus casseliflavus (D) Laboratory Results 05/26/20 06:05: WBC 11.4 H, RBC 3.76 L, Hgb 11.8 L, Hct 35.3 L, MCV 93.9, MCH 31.4, MCHC 33.4, RDW Std Deviation 41.7, RDW Coeff of Flora 12.2, Plt Count 186, MPV 8.9, Immature Gran % (Auto) 0.500, Neut % (Auto) 77.1 H, Lymph % (Auto) 10.7 L, [place] % (Auto) 7.7, Eos % (Auto) 3.7, Baso % (Auto) 0.3, Absolute Neuts (auto) 8.8 H, Absolute Lymphs (auto) 1.22, Nucleated RBC % 0 05/26/20 06:05: Sodium 135 L, Potassium 3.1 L, Chloride 98, Carbon Dioxide 32.0, Anion Gap 5, BUN 12, Creatinine 0.66 L, Estim Creat Clear Calc 57.93, Est GFR (MDRD) Af Amer 149, Est GFR (MDRD) Non-Af 123, BUN/Creatinine Ratio 18.2, Glucose 116 H, Calcium 8.6 05/26/20 06:05: Blood Type A POSITIVE, Antibody Screen NEGATIVE Current Medications Acetaminophen (Tylenol) 1,000 mg PO TID PRN PRN PRN Reason: pain 1-10/fever Last Admin: 05/24/20 00:55 Dose: 1,000 mg Documented by: Al Hydroxide/Mg Hydroxide (Mylanta Ii) 30 ml PO Q4H PRN PRN PRN Reason: HEARTBURN Last Admin: 05/26/20 00:31 Dose: 30 ml Documented by: Atenolol (Tenormin (Beta Sena)) 50 mg PO DAILY [facility] Last Admin: 05/26/20 10:13 Dose: 50 mg Documented by: Atorvastatin Calcium (Lipitor) 20 mg PO QHS [facility] Last Admin: 05/25/20 21:46 Dose: 20 mg Documented by: Chlorthalidone (Hygroton) 25 mg PO DAILY [facility] Last Admin: 05/25/20 09:50 Dose: 25 mg Documented by: Docusate Sodium (Colace) 200 mg PO BID PRN PRN PRN Reason: Constipation Last Admin: 05/25/20 06:47 Dose: 200 mg Documented by: Enoxaparin Sodium (Lovenox) 40 mg SC DAILY@0600 [facility] Last Admin: 05/26/20 10:13 Dose: 40 mg Documented by: Ergocalciferol (Vitamin D) 50,000 unit PO Q7D [facility] Stop: 07/11/20 17:01 Last Admin: 05/23/20 18:23 Dose: 50,000 unit Documented by: Vancomycin IV Pharmacy to Dose (1 ea/ Sodium Chloride) 500 mls @ 250 mls/hr IV X1 PRN; Protocol PRN Reason: Rx to Dose Cefazolin Sodium 2 gm/ Sodium (Chloride) 110 mls @ 150 mls/hr IV Q8 [facility] Last Admin: 05/26/20 05:39 Dose: 150 mls/hr Documented by: Vancomycin HCl 1,500 mg/ (Sodium Chloride) 530 mls @ 250 mls/hr IV Q12H [facility] Last Admin: 05/26/20 07:17 Dose: 250 mls/hr Documented by: Ondansetron HCl (Zofran) 4 mg IV Q8H PRN PRN PRN Reason: NAUSEA/VOMITING Last Admin: 05/24/20 15:58 Dose: 4 mg Documented by: Oxycodone HCl (Oxyir) 5 mg PO Q4H PRN PRN PRN Reason: Pain Score 4-5/10 Last Admin: 05/26/20 00:33 Dose: 5 mg Documented by: Oxycodone HCl (Oxyir) 10 mg PO Q4H PRN PRN PRN Reason: Pain Score 6-10/10 Last Admin: 05/26/20 10:24 Dose: 10 mg Documented by: Polyethylene Glycol (Miralax) 17 gm PO DAILY PRN PRN Reason: Constipation Last Admin: 05/25/20 21:45 Dose: 17 gm Documented by: Sodium Chloride () 10 - 40 ml IV UD PRN PRN Reason: SALINE FLUSH Last Admin: 05/25/20 06:07 Dose: 10 ml Documented by: Medical Necessity - Tobacco Use Smoking Status: Former smoker Assessment/Plan All Active Problems Bacteremia (Acute) 1. Acute left hip fracture: * Status post mechanical fall. * NSQIP shows patient is of below average risk for perioperative complications. * 25 hydroxy D at 25. Started ergocalciferol * surgery on hold given bacteremia * May need surgery 05/29 2. Severe sepsis: * 2/2 bacteremia * BCx on 05/23 gram stain showing GPC * repeat BCx on 05/24 * on meropenem and vancomycin * ID consult 3. Encephalopathy: * suspect toxic given narcotics, but likely enhanced by severe sepsis * resolved 4. Bacteremia: * as for #2 * + Enterococcus * repeat Cx * if persistent bacteremia, consider TTE 5. CVA: * ASA on hold * clopidogrel on DEC, however, patient was discharged on 05/04, and was only on ASA--no clopidogrel. * Resume ASA post operative * Neurology consultation not needed as patient is not taking clopidogrel 6. VTE prophylaxis: enoxaparin Inpatient E&M: [id number] [facility] L2
[2020-05-26] MEDS: Chlorthalidone 50 MG Tablet 25 MG PO (12:52)
--- NOTE | 2020-05-26 12:57 | PN.ID_ITS ---
Patient Problems: Active and Suspected Problems Bacteremia (Acute) Subjective: Feeling ok, at bedside, no fever - Physical Exam Vitals/I&O's: Vital Signs Temp Pulse Resp BP Pulse Ox 98.8 F 55 L 18 115/63 100 05/26/20 08:00 05/26/20 08:00 05/26/20 10:00 05/26/20 08:00 05/26/20 08:00 Oxygen Flow Rate (L/min) 2 Oxygen Delivery Method Nasal Cannula Weight: 89.403 kg Body Mass Index (BMI) 29.0 Finger Stick Blood Glucose 90 Intake and Output for Last 24 Hours 05/24/20 05/25/20 05/26/20 23:59 23:59 23:59 Intake Total 3071.25 / 3071.25 2724 / 2724 Output Total 1478 / 1478 1525 / 1525 Balance 1593.25 / 1593.25 1199 / 1199 General: Alert, Cooperative Lungs: Clear to auscultation, Normal air movement Cardiovascular: Regular rate, Regular Rhythm Abdomen: Soft, Non Tender, Non-Distended Skin: No rashes Microbiology Past 72 Hours 05/23/20 16:45 Urine, Clean Catch Urine Culture - Final Mixed Gram Positive Organisms 05/23/20 19:25 Blood Culture (Wb) - Right Forearm Blood Culture - Preliminary GPC Poss Enterococcus sp 05/24/20 13:56 Blood Culture (Wb) - Left Hand Blood Culture - Preliminary 05/24/20 13:56 Blood Culture (Wb) - Right Hand Blood Culture - Final 05/23/20 19:15 Blood Culture (Wb) - Left Wrist Bacteria Detection (PCR) - Preliminary 05/23/20 19:15 Blood Culture (Wb) - Left Wrist Blood Culture - Preliminary Enterococcus casseliflavus (D) Laboratory Results 05/26/20 06:05: WBC 11.4 H, RBC 3.76 L, Hgb 11.8 L, Hct 35.3 L, MCV 93.9, MCH 31.4, MCHC 33.4, RDW Std Deviation 41.7, RDW Coeff of Flora 12.2, Plt Count 186, MPV 8.9, Immature Gran % (Auto) 0.500, Neut % (Auto) 77.1 H, Lymph % (Auto) 10.7 L, [place] % (Auto) 7.7, Eos % (Auto) 3.7, Baso % (Auto) 0.3, Absolute Neuts (auto) 8.8 H, Absolute Lymphs (auto) 1.22, Nucleated RBC % 0 05/26/20 06:05: Sodium 135 L, Potassium 3.1 L, Chloride 98, Carbon Dioxide 32.0, Anion Gap 5, BUN 12, Creatinine 0.66 L, Estim Creat Clear Calc 57.93, Est GFR (MDRD) Af Amer 149, Est GFR (MDRD) Non-Af 123, BUN/Creatinine Ratio 18.2, Glucose 116 H, Calcium 8.6 05/26/20 06:05: Blood Type A POSITIVE, Antibody Screen NEGATIVE Current Medications Acetaminophen (Tylenol) 1,000 mg PO TID PRN PRN PRN Reason: pain 1-10/fever Last Admin: 05/24/20 00:55 Dose: 1,000 mg Documented by: Al Hydroxide/Mg Hydroxide (Mylanta Ii) 30 ml PO Q4H PRN PRN PRN Reason: HEARTBURN Last Admin: 05/26/20 00:31 Dose: 30 ml Documented by: Atenolol (Tenormin (Beta Sena)) 50 mg PO DAILY [facility] Last Admin: 05/26/20 10:13 Dose: 50 mg Documented by: Atorvastatin Calcium (Lipitor) 20 mg PO QHS [facility] Last Admin: 05/25/20 21:46 Dose: 20 mg Documented by: Chlorthalidone (Hygroton) 25 mg PO DAILY [facility] Last Admin: 05/26/20 12:52 Dose: 25 mg Documented by: Docusate Sodium (Colace) 200 mg PO BID PRN PRN PRN Reason: Constipation Last Admin: 05/25/20 06:47 Dose: 200 mg Documented by: Enoxaparin Sodium (Lovenox) 40 mg SC DAILY@0600 [facility] Last Admin: 05/26/20 10:13 Dose: 40 mg Documented by: Ergocalciferol (Vitamin D) 50,000 unit PO Q7D [facility] Stop: 07/11/20 17:01 Last Admin: 05/23/20 18:23 Dose: 50,000 unit Documented by: Linezolid (Zyvox) 600 mg PO BID [facility] Ondansetron HCl (Zofran) 4 mg IV Q8H PRN PRN PRN Reason: NAUSEA/VOMITING Last Admin: 05/24/20 15:58 Dose: 4 mg Documented by: Oxycodone HCl (Oxyir) 5 mg PO Q4H PRN PRN PRN Reason: Pain Score 4-5/10 Last Admin: 05/26/20 00:33 Dose: 5 mg Documented by: Oxycodone HCl (Oxyir) 10 mg PO Q4H PRN PRN PRN Reason: Pain Score 6-10/10 Last Admin: 05/26/20 10:24 Dose: 10 mg Documented by: Polyethylene Glycol (Miralax) 17 gm PO DAILY PRN PRN Reason: Constipation Last Admin: 05/25/20 21:45 Dose: 17 gm Documented by: Sodium Chloride () 10 - 40 ml IV UD PRN PRN Reason: SALINE FLUSH Last Admin: 05/25/20 06:07 Dose: 10 ml Documented by: Medical Necessity - Tobacco Use Smoking Status: Former smoker Route of nutrition/ use of supplements: [] Nutritional Intake: [] IV Site: [] Ribeiro Catheter: [] - Assessment/Plan Antibiotics: [] Assessment/Plan: [] enterococcus bacteremia, L hip fracture - repeat bcx today and tomorrow. Poor quality TTE, but no veg seen. Remote h/o mssa skin infection. Reports rash with PCN. OR for hip repair planned for Friday. Change abx to linezolid based on susc results. Will follow, d/w child welfare caseworker
[2020-05-26] MEDS: Linezolid 600 MG Tablet PO ×2 (14:15→22:14)
[2020-05-26 16:00] VITALS: BP 128/54; PULSE 62; RESP 16; RESP 18; TEMP 37.3; O2SAT 100
[2020-05-26 22:00] VITALS: BP 125/75; PULSE 62; RESP 16; TEMP 36.9; O2SAT 94
[2020-05-26] MEDS: Atorvastatin Calcium 20 MG Tablet PO (22:14)
[2020-05-27] VITALS (7 sets, daily range): BP systolic 130–142; BP diastolic 65–81; PULSE 55–65; RESP 14–18; TEMP 36.9–37.6; O2SAT 94–98
[2020-05-27] MEDS: 0.9% Saline Lock 10 ML Syringe IV (05:25)
[2020-05-27] MEDS: Linezolid 600 MG Tablet PO ×2 (09:22→21:11)
[2020-05-27] MEDS: Atenolol 50 MG Tablet PO (09:22)
[2020-05-27] MEDS: Chlorthalidone 50 MG Tablet 25 MG PO (09:22)
--- NOTE | 2020-05-27 11:51 | PN_ITS ---
Patient Problems: Active and Suspected Problems Bacteremia (Acute) Reason for Visit: hip fxr Subjective: Feels terrible. Denies abdominal pain. Vitals/I&O's: Vital Signs Temp Pulse Resp BP Pulse Ox 37.1 C 65 14 138/65 H 95 05/27/20 09:39 05/27/20 09:39 05/27/20 09:39 05/27/20 09:39 05/27/20 09:39 Oxygen Flow Rate (L/min) 2 Oxygen Delivery Method Nasal Cannula Weight: 89.403 kg Body Mass Index (BMI) 29.0 Finger Stick Blood Glucose 90 Intake and Output for Last 24 Hours 05/25/20 05/26/20 05/27/20 23:59 23:59 23:59 Intake Total 2724 / 2724 1590 / 1790 200 / 200 Output Total 1525 / 1525 2050 / 2650 850 / 850 Balance 1199 / 1199 -460 / -860 -650 / -650 General: No apparent distress HEENT: Atraumatic, Normocephalic Oral: Moist Mucosa, No Gingival or Mucosal Lesions/ Ulcerations Neck: No Nodes, Thyroid Normal Size and Texture Lungs: Clear to auscultation, Normal air movement, No rhonchi, No wheeze, No rales Cardiovascular: Regular rate, Regular Rhythm, Normal S1, Normal S2, No murmurs Abdomen: Bowel Sounds Present, Soft, Non Tender, Non-Distended, No Hepato- splenomegaly Extremities: No edema, No Calf Tenderness Skin: No rashes, No breakdown Microbiology Past 72 Hours 05/25/20 07:30 Blood Culture (Wb) - Right Hand Blood Culture - Preliminary No growth in 48 hours. 05/25/20 07:22 Blood Culture (Wb) - Anticubital Right Blood Culture - Preliminary No growth in 48 hours. 05/26/20 12:35 Blood Culture (Wb) - Right Wrist Blood Culture - Preliminary 05/23/20 16:45 Urine, Clean Catch Urine Culture - Final Mixed Gram Positive Organisms 05/23/20 19:25 Blood Culture (Wb) - Right Forearm Blood Culture - Preliminary GPC Poss Enterococcus sp 05/24/20 13:56 Blood Culture (Wb) - Left Hand Blood Culture - Preliminary 05/24/20 13:56 Blood Culture (Wb) - Right Hand Blood Culture - Final 05/23/20 19:15 Blood Culture (Wb) - Left Wrist Bacteria Detection (PCR) - Preliminary 05/23/20 19:15 Blood Culture (Wb) - Left Wrist Blood Culture - Preliminary Enterococcus casseliflavus (D) Laboratory Results 05/27/20 06:30: Vancomycin Trough Cancelled Current Medications Acetaminophen (Tylenol) 1,000 mg PO TID PRN PRN PRN Reason: pain 1-10/fever Last Admin: 05/24/20 00:55 Dose: 1,000 mg Documented by: Al Hydroxide/Mg Hydroxide (Mylanta Ii) 30 ml PO Q4H PRN PRN PRN Reason: HEARTBURN Last Admin: 05/26/20 00:31 Dose: 30 ml Documented by: Atenolol (Tenormin (Beta Sena)) 50 mg PO DAILY [facility] Last Admin: 05/27/20 09:22 Dose: 50 mg Documented by: Atorvastatin Calcium (Lipitor) 20 mg PO QHS [facility] Last Admin: 05/26/20 22:14 Dose: 20 mg Documented by: Chlorthalidone (Hygroton) 25 mg PO DAILY [facility] Last Admin: 05/27/20 09:22 Dose: 25 mg Documented by: Docusate Sodium (Colace) 200 mg PO BID PRN PRN PRN Reason: Constipation Last Admin: 05/25/20 06:47 Dose: 200 mg Documented by: Enoxaparin Sodium (Lovenox) 40 mg SC DAILY@0600 [facility] Last Admin: 05/27/20 05:25 Dose: Not Given Documented by: Ergocalciferol (Vitamin D) 50,000 unit PO Q7D [facility] Stop: 07/11/20 17:01 Last Admin: 05/23/20 18:23 Dose: 50,000 unit Documented by: Linezolid (Zyvox) 600 mg PO BID [facility] Last Admin: 05/27/20 09:22 Dose: 600 mg Documented by: Ondansetron HCl (Zofran) 4 mg IV Q8H PRN PRN PRN Reason: NAUSEA/VOMITING Last Admin: 05/24/20 15:58 Dose: 4 mg Documented by: Oxycodone HCl (Oxyir) 5 mg PO Q4H PRN PRN PRN Reason: Pain Score 4-5/10 Last Admin: 05/26/20 00:33 Dose: 5 mg Documented by: Oxycodone HCl (Oxyir) 10 mg PO Q4H PRN PRN PRN Reason: Pain Score 6-10/10 Last Admin: 05/26/20 22:13 Dose: 10 mg Documented by: Polyethylene Glycol (Miralax) 17 gm PO DAILY PRN PRN Reason: Constipation Last Admin: 05/25/20 21:45 Dose: 17 gm Documented by: Sodium Chloride () 10 - 40 ml IV UD PRN PRN Reason: SALINE FLUSH Last Admin: 05/27/20 05:25 Dose: 10 ml Documented by: STROKE Vital Signs/Narrative: Vital Signs Temp Pulse Resp BP Pulse Ox 05/27/20 09:39 37.1 C 65 14 138/65 H 95 Medical Necessity - Tobacco Use Smoking Status: Former smoker Assessment/Plan All Active Problems Bacteremia (Acute) 1. Acute left hip fracture: * Status post mechanical fall. * NSQIP shows patient is of below average risk for perioperative complications. * 25 hydroxy D at 25. Started ergocalciferol * surgery on hold given bacteremia * May need surgery 05/29 2. Severe sepsis: * 2/2 bacteremia * BCx on 05/23 gram stain showing GPC * repeat BCx on 05/24 * on meropenem and vancomycin * ID consult 3. Encephalopathy: * suspect toxic given narcotics, but likely enhanced by severe sepsis * resolved 4. Bacteremia: * as for #2 * + Enterococcus on 05/23, 05/24 and 05/26. Negative 05/25. Repeat on 05/27. * repeat Cx * if persistent bacteremia, consider TTE * DW Dr. Brown, he thinks the bacteremia is related with translocation from the gut from sitting pelvis patient had previously. Does not feel any additional imaging is necessary at this time. Addressed if the cultures on the are negative if patient would be okay for surgery on the . He states that should be fine. 5. CVA: * ASA on hold * clopidogrel on DEC, however, patient was discharged on 05/04, and was only on ASA--no clopidogrel. * Resume ASA post operative * Neurology consultation not needed as patient is not taking clopidogrel 6. VTE prophylaxis: enoxaparin Inpatient E&M: [id number] [facility] Hosp L2
[2020-05-27] MEDS: Atorvastatin Calcium 20 MG Tablet PO (21:10)
[2020-05-27] MEDS: Acetaminophen 500 MG Tablet 1000 MG PO (21:13)
[2020-05-28 03:12] VITALS: BP 135/80; PULSE 63; RESP 18; TEMP 36.7; O2SAT 95
[2020-05-28] MEDS: Enoxaparin 40 MG/0.4 ML Syringe SC (05:16)
[2020-05-28 07:25] VITALS: O2SAT 90
--- NOTE | 2020-05-28 08:30 | CT_ITS ---
STUDY: CT LUMBAR SPINE WITHOUT CONTRAST REASON FOR EXAM: Male, 80 years old. BACTEREMIA -- LEFT HIP FX X2 WEEKS AGO--S/P FALL RADIATION DOSAGE (If Supplied By Facility): CTDIvol = ( 27.19 ) mGy, DLP = ( 837.66 ) mGycm TECHNIQUE: The patient was scanned in a multi detector CT scanner. High resolution transaxial imaging was performed. Images were obtained from to . Sagittal and coronal images were reconstructed. Individualized dose optimization techniques were used for this CT. COMPARISON: None FINDINGS: Normal lumbar lordosis. There is no demonstrated fracture. There is multilevel endplate spondylosis of the lumbar vertebrae. There is multi-level degenerative disc disease with multi-level disc space narrowing. L1-2: There is mild disc space narrowing and endplates spondylosis. There is mild depression at the inferior endplate of L1 with cortical step-off, consistent with acute fracture. There is no demonstrated central canal or foraminal stenosis. L2-3: There is minimal disc space narrowing and endplate spondylosis. There is no significant disc herniation, central canal or foraminal stenosis. Mild bilateral facet arthropathy L3-4: There is mild disc space narrowing and endplates spondylosis. Evaluation of the central can and foramina is limited by hardware artifact. L4-5: There is mild disc space narrowing and endplates spondylosis. There is posterior transpedicular screw fusion in place. There is grade 1 anterolisthesis. Evaluation of the central canal and neural foramina is limited secondary to hardware artifact. L5-S1: There is minimal disc space narrowing and endplate spondylosis. There is no significant disc herniation, central canal or foraminal stenosis. CT/Spine Lumbar WITH Contrast IMPRESSION: Mild inferior endplate fracture at L1, likely acute L4/L5: Grade 1 anterolisthesis with posterior fusion. If symptoms persists, further evaluation with contrast-enhanced MRI can be obtained. Electronically Signed: Zandra Moncada MD at 9:42 EDT Tel , Service support ,
[2020-05-28] MEDS: Polyethylene Glycol 3350 17 GM PACKET PO (08:49)
[2020-05-28] MEDS: oxyCODONE 5 MG Tablet 10 MG PO (08:49)
[2020-05-28 09:34] VITALS: BP 113/89; PULSE 67; RESP 18; TEMP 36.8; O2SAT 94
[2020-05-28] MEDS: Linezolid 600 MG Tablet PO ×2 (09:37→20:57)
[2020-05-28] MEDS: Atenolol 50 MG Tablet PO (09:37)
[2020-05-28] MEDS: Chlorthalidone 50 MG Tablet 25 MG PO (09:38)
--- NOTE | 2020-05-28 10:01 | PN_ITS ---
Patient Problems: Active and Suspected Problems Bacteremia (Acute) Reason for Visit: hip fxr Subjective: Pain in left hip ongoing. Required additional pain medication after being transferred from beds after CT. Vitals/I&O's: Vital Signs Temp Pulse Resp BP Pulse Ox 36.8 C 67 18 113/89 H 94 05/28/20 09:34 05/28/20 09:34 05/28/20 09:34 05/28/20 09:34 05/28/20 09:34 Oxygen Flow Rate (L/min) 1 Oxygen Delivery Method Room Air Weight: 89.403 kg Body Mass Index (BMI) 29.0 Finger Stick Blood Glucose 90 Intake and Output for Last 24 Hours 05/26/20 05/27/20 05/28/20 23:59 23:59 23:59 Intake Total 1590 / 1790 500 / 500 250 / 250 Output Total 2050 / 2650 3000 / 3000 500 / 500 Balance -460 / -860 -2500 / -2500 -250 / -250 General: Alert, No apparent distress HEENT: Atraumatic, Normocephalic Oral: Moist Mucosa, No Gingival or Mucosal Lesions/ Ulcerations Neck: No Nodes, Thyroid Normal Size and Texture Lungs: Clear to auscultation, Normal air movement, No rhonchi, No wheeze Cardiovascular: Regular rate, Regular Rhythm, Normal S1, Normal S2 Abdomen: Bowel Sounds Present, Soft, Non Tender, Non-Distended, No Hepato- splenomegaly Extremities: No edema, No Calf Tenderness Microbiology Past 72 Hours 05/26/20 12:35 Blood Culture (Wb) - Right Wrist Blood Culture - Preliminary 05/23/20 19:15 Blood Culture (Wb) - Left Wrist Bacteria Detection (PCR) - Fi nal 05/23/20 19:15 Blood Culture (Wb) - Left Wrist Blood Culture - Preliminary Enterococcus casseliflavus (D) 05/27/20 06:30 Blood Culture (Wb) - Right Hand Blood Culture - Preliminary 05/25/20 07:30 Blood Culture (Wb) - Right Hand Blood Culture - Preliminary No growth in 48 hours. 05/25/20 07:22 Blood Culture (Wb) - Anticubital Right Blood Culture - Preliminary No growth in 48 hours. 05/23/20 16:45 Urine, Clean Catch Urine Culture - Final Mixed Gram Positive Organisms 05/23/20 19:25 Blood Culture (Wb) - Right Forearm Blood Culture - Preliminary GPC Poss Enterococcus sp 05/24/20 13:56 Blood Culture (Wb) - Left Hand Blood Culture - Preliminary 05/24/20 13:56 Blood Culture (Wb) - Right Hand Blood Culture - Final Current Medications Acetaminophen (Tylenol) 1,000 mg PO TID PRN PRN PRN Reason: pain 1-10/fever Last Admin: 05/27/20 21:13 Dose: 500 mg Documented by: Al Hydroxide/Mg Hydroxide (Mylanta Ii) 30 ml PO Q4H PRN PRN PRN Reason: HEARTBURN Last Admin: 05/26/20 00:31 Dose: 30 ml Documented by: Atenolol (Tenormin (Beta Sena)) 50 mg PO DAILY [facility] Last Admin: 05/28/20 09:37 Dose: 50 mg Documented by: Atorvastatin Calcium (Lipitor) 20 mg PO QHS [facility] Last Admin: 05/27/20 21:10 Dose: 20 mg Documented by: Chlorthalidone (Hygroton) 25 mg PO DAILY [facility] Last Admin: 05/28/20 09:38 Dose: 25 mg Documented by: Docusate Sodium (Colace) 200 mg PO BID PRN PRN PRN Reason: Constipation Last Admin: 05/25/20 06:47 Dose: 200 mg Documented by: Enoxaparin Sodium (Lovenox) 40 mg SC DAILY@0600 [facility] Last Admin: 05/28/20 05:16 Dose: 40 mg Documented by: Ergocalciferol (Vitamin D) 50,000 unit PO Q7D [facility] Stop: 07/11/20 17:01 Last Admin: 05/23/20 18:23 Dose: 50,000 unit Documented by: Hydromorphone HCl (Dilaudid Inj) 0.5 mg IV Q4H PRN PRN PRN Reason: Pain Score 6-10/10 Linezolid (Zyvox) 600 mg PO BID [facility] Last Admin: 05/28/20 09:37 Dose: 600 mg Documented by: Ondansetron HCl (Zofran) 4 mg IV Q8H PRN PRN PRN Reason: NAUSEA/VOMITING Last Admin: 05/24/20 15:58 Dose: 4 mg Documented by: Oxycodone HCl (Oxyir) 5 mg PO Q4H PRN PRN PRN Reason: Pain Score 4-5/10 Last Admin: 05/26/20 00:33 Dose: 5 mg Documented by: Oxycodone HCl (Oxyir) 10 mg PO Q4H PRN PRN PRN Reason: Pain Score 6-10/10 Last Admin: 05/28/20 08:49 Dose: 10 mg Documented by: Polyethylene Glycol (Miralax) 17 gm PO DAILY PRN PRN Reason: Constipation Last Admin: 05/28/20 08:49 Dose: 17 gm Documented by: Sodium Chloride () 10 - 40 ml IV UD PRN PRN Reason: SALINE FLUSH Last Admin: 05/27/20 05:25 Dose: 10 ml Documented by: STROKE Vital Signs/Narrative: Vital Signs Temp Pulse Resp BP Pulse Ox 05/28/20 09:34 36.8 C 67 18 113/89 H 94 05/28/20 07:25 90 Medical Necessity - Tobacco Use Smoking Status: Former smoker Assessment/Plan All Active Problems Bacteremia (Acute) 1. Acute left hip fracture: * Status post mechanical fall. * NSQIP shows patient is of below average risk for perioperative complications. * 25 hydroxy D at 25. Started ergocalciferol * surgery on hold given bacteremia * surgery tentatively 05/29 2. Severe sepsis: * 2/2 bacteremia * BCx on 05/23 gram stain showing GPC * repeat BCx on 05/24 * on meropenem and vancomycin * ID consult 3. Encephalopathy: * suspect toxic given narcotics, but likely enhanced by severe sepsis * resolved 4. Bacteremia: * as for #2 * + Enterococcus on 05/23, 05/24, 05/26 and . Negative 05/25. Repeat on 05/28. * repeat Cx * if persistent bacteremia, consider TTE * DW Dr. Brown 05/27, he thinks the bacteremia is related with translocation from the gut from sitting pelvis patient had previously. Does not feel any additional imaging is necessary at this time. Addressed if the cultures on the are negative if patient would be okay for surgery on the . He states that should be fine. * Order lumbar spine CT. No evidence of infection involving hardware. 5. L1 compression fracture * may be acute * mild * may be related to fall. 6. CVA: * ASA on hold * clopidogrel on DEC, however, patient was discharged on 05/04, and was only on ASA--no clopidogrel. * Resume ASA post operative * Neurology consultation not needed as patient is not taking clopidogrel 7. VTE prophylaxis: enoxaparin Inpatient E&M: 73021 [facility] Hosp L2
[2020-05-28 16:27] VITALS: BP 127/63; PULSE 65; RESP 18; TEMP 36.3; O2SAT 95
[2020-05-28 20:00] VITALS: PULSE 60
[2020-05-28] MEDS: Atorvastatin Calcium 20 MG Tablet PO (20:57)
[2020-05-28 22:25] VITALS: BP 128/63; PULSE 60; RESP 16; TEMP 36.7; O2SAT 95
[2020-05-29] MEDS: oxyCODONE 5 MG Tablet PO ×3 (03:37→19:10)
[2020-05-29 03:48] VITALS: BP 128/74; PULSE 62; RESP 16; TEMP 36.7; O2SAT 95
[2020-05-29] MEDS: Enoxaparin 40 MG/0.4 ML Syringe SC (06:50)
--- NOTE | 2020-05-29 07:44 | PN_ITS ---
Patient Problems: Active and Suspected Problems Bacteremia (Acute) Reason for Visit: Acute mechanical fall with subsequent Acute left intertrochanteric femoral neck comminuted fracture Severe sepsis secondary to enterococcal bacteremia Subjective: Patient is an 80-year-old gentleman admitted following a mechanical fall with subsequent left hip fracture on 05/23/2020 patient was later found to have severe sepsis with blood cultures showing gram-positive cocci (enterococcus). Patient underwent TTE with no vegetations found Objective: GENERAL: cooperative HEENT: Atraumatic; EYES; Anicteric, Normal Conjunctiva NECK; supple, normal thyroid, RESPIRATORY: Diminished to auscultation CARDIOVASCULAR: Regular S1 S2, GI: soft, normoactive bowel sounds, : No Renal angle tenderness; EXTREMITIES: No edema, no clubbing, MUSCULOSKELETAL: Lower extremity immobilized NEURO: Awake; no lateralizing signs. SKIN: No Rash PSYCH; Flat affect Vitals/I&O's: Vital Signs Temp Pulse Resp BP Pulse Ox 98.0 F 62 16 128/74 H 95 05/29/20 03:48 05/29/20 03:48 05/29/20 03:48 05/29/20 03:48 05/29/20 03:48 Oxygen Flow Rate (L/min) 1 Oxygen Delivery Method Room Air Weight: 89.403 kg Body Mass Index (BMI) 29.0 Finger Stick Blood Glucose 90 Intake and Output for Last 24 Hours 05/27/20 05/28/20 05/29/20 23:59 23:59 23:59 Intake Total 500 / 500 570 / 570 100 / 100 Output Total 3000 / 3000 1750 / 1750 400 / 400 Balance -2500 / -2500 -1180 / -1180 -300 / -300 Microbiology Past 72 Hours 05/27/20 06:30 Blood Culture (Wb) - Right Hand Blood Culture - Preliminary 05/23/20 19:25 Blood Culture (Wb) - Right Forearm Blood Culture - Final GPC Poss Enterococcus sp 05/23/20 19:15 Blood Culture (Wb) - Left Wrist Bacteria Detection (PCR) - Final 05/23/20 19:15 Blood Culture (Wb) - Left Wrist Blood Culture - Final Enterococcus casseliflavus (D) 05/26/20 12:35 Blood Culture (Wb) - Right Wrist Blood Culture - Preliminary 05/25/20 07:30 Blood Culture (Wb) - Right Hand Blood Culture - Preliminary No growth in 48 hours. 05/25/20 07:22 Blood Culture (Wb) - Anticubital Right Blood Culture - Preliminary No growth in 48 hours. 05/23/20 16:45 Urine, Clean Catch Urine Culture - Final Mixed Gram Positive Organisms 05/24/20 13:56 Blood Culture (Wb) - Left Hand Blood Culture - Preliminary 05/24/20 13:56 Blood Culture (Wb) - Right Hand Blood Culture - Final Current Medications Acetaminophen (Tylenol) 1,000 mg PO TID PRN PRN PRN Reason: pain 1-10/fever Last Admin: 05/27/20 21:13 Dose: 500 mg Documented by: Al Hydroxide/Mg Hydroxide (Mylanta Ii) 30 ml PO Q4H PRN PRN PRN Reason: HEARTBURN Last Admin: 05/26/20 00:31 Dose: 30 ml Documented by: Atenolol (Tenormin (Beta Sena)) 50 mg PO DAILY [facility] Last Admin: 05/28/20 09:37 Dose: 50 mg Documented by: Atorvastatin Calcium (Lipitor) 20 mg PO QHS [facility] Last Admin: 05/28/20 20:57 Dose: 20 mg Documented by: Chlorthalidone (Hygroton) 25 mg PO DAILY [facility] Last Admin: 05/28/20 09:38 Dose: 25 mg Documented by: Docusate Sodium (Colace) 200 mg PO BID PRN PRN PRN Reason: Constipation Last Admin: 05/25/20 06:47 Dose: 200 mg Documented by: Enoxaparin Sodium (Lovenox) 40 mg SC DAILY@0600 [facility] Last Admin: 05/29/20 06:50 Dose: 40 mg Documented by: Ergocalciferol (Vitamin D) 50,000 unit PO Q7D [facility] Stop: 07/11/20 17:01 Last Admin: 05/23/20 18:23 Dose: 50,000 unit Documented by: Hydromorphone HCl (Dilaudid Inj) 0.5 mg IV Q4H PRN PRN PRN Reason: Pain Score 6-10/10 Linezolid (Zyvox) 600 mg PO BID [facility] Last Admin: 05/28/20 20:57 Dose: 600 mg Documented by: Ondansetron HCl (Zofran) 4 mg IV Q8H PRN PRN PRN Reason: NAUSEA/VOMITING Last Admin: 05/24/20 15:58 Dose: 4 mg Documented by: Oxycodone HCl (Oxyir) 5 mg PO Q4H PRN PRN PRN Reason: Pain Score 4-5/10 Last Admin: 05/29/20 03:37 Dose: 5 mg Documented by: Oxycodone HCl (Oxyir) 10 mg PO Q4H PRN PRN PRN Reason: Pain Score 6-10/10 Last Admin: 05/28/20 08:49 Dose: 10 mg Documented by: Polyethylene Glycol (Miralax) 17 gm PO DAILY PRN PRN Reason: Constipation Last Admin: 05/28/20 08:49 Dose: 17 gm Documented by: Sodium Chloride () 10 - 40 ml IV UD PRN PRN Reason: SALINE FLUSH Last Admin: 05/27/20 05:25 Dose: 10 ml Documented by: STROKE Vital Signs/Narrative: Vital Signs Temp Pulse Resp BP Pulse Ox 05/29/20 03:48 98.0 F 62 16 128/74 H 95 Medical Necessity - Tobacco Use Smoking Status: Former smoker Assessment/Plan All Active Problems Bacteremia (Acute) Patient is an 80-year-old gentleman admitted following a mechanical fall with subsequent left hip fracture on 05/23/2020 patient was later found to have severe sepsis with blood cultures showing gram-positive cocci (enterococcus). Patient underwent TTE with no vegetations found 1. Acute mechanical fall with subsequent Acute left intertrochanteric femoral neck comminuted fracture -Patient mayelin-op assessment using NSQIP deemed patient to be below average risk for perioperative complications. Consult placed to orthopedic surgery. Plan is for patient to undergo surgical intervention pending resolution office bacteremia 2. Severe sepsis secondary to enterococcal bacteremia ?Patient is currently on cefazolin source of infection so far not clear. Patient underwent TTE which was negative for vegetations. Infectious disease on consult 3. Acute encephalopathy ?Secondary to a combination of toxic encephalopathy from narcotics as well as patient's underlying infection 4. L1 compression fractures ?Symptomatic treatment 5. History of previous CVA ?On aspirin 6. Dyslipidemia -Patient is on statin therapy, continued at home dose 7. DVT prophylaxis ?Enoxaparin Advance planning; did discuss with the patient and family regarding advanced directives as well as CODE STATUS. Did explain the various scenarios involved ( FULL CODE, DNR CCA, DNR CCA with no intubation, and DNR CC and what each meant) patient elected full code with CPR and intubation if warranted. Order was placed. Time spent on discussion 18 minutes. Active Medications Acetaminophen (Tylenol) 1,000 mg PO TID PRN PRN PRN Reason: pain 1-10/fever Last Admin: 05/27/20 21:13 Dose: 500 mg Documented by: Al Hydroxide/Mg Hydroxide (Mylanta Ii) 30 ml PO Q4H PRN PRN PRN Reason: HEARTBURN Last Admin: 05/26/20 00:31 Dose: 30 ml Documented by: Atenolol (Tenormin (Beta Sena)) 50 mg PO DAILY [facility] Last Admin: 05/29/20 09:36 Dose: 50 mg Documented by: Atorvastatin Calcium (Lipitor) 20 mg PO QHS [facility] Last Admin: 05/28/20 20:57 Dose: 20 mg Documented by: Chlorthalidone (Hygroton) 25 mg PO DAILY [facility] Last Admin: 05/29/20 09:36 Dose: 25 mg Documented by: Docusate Sodium (Colace) 200 mg PO BID PRN PRN PRN Reason: Constipation Last Admin: 05/25/20 06:47 Dose: 200 mg Documented by: Enoxaparin Sodium (Lovenox) 40 mg SC DAILY@0600 [facility] Last Admin: 05/29/20 06:50 Dose: 40 mg Documented by: Ergocalciferol (Vitamin D) 50,000 unit PO Q7D [facility] Stop: 07/11/20 17:01 Last Admin: 05/23/20 18:23 Dose: 50,000 unit Documented by: Hydromorphone HCl (Dilaudid Inj) 0.5 mg IV Q4H PRN PRN PRN Reason: Pain Score 6-10/10 Linezolid (Zyvox) 600 mg PO BID [facility] Last Admin: 05/29/20 09:36 Dose: 600 mg Documented by: Ondansetron HCl (Zofran) 4 mg IV Q8H PRN PRN PRN Reason: NAUSEA/VOMITING Last Admin: 05/24/20 15:58 Dose: 4 mg Documented by: Oxycodone HCl (Oxyir) 5 mg PO Q4H PRN PRN PRN Reason: Pain Score 4-5/10 Last Admin: 05/29/20 03:37 Dose: 5 mg Documented by: Oxycodone HCl (Oxyir) 10 mg PO Q4H PRN PRN PRN Reason: Pain Score 6-10/10 Last Admin: 05/28/20 08:49 Dose: 10 mg Documented by: Polyethylene Glycol (Miralax) 17 gm PO DAILY PRN PRN Reason: Constipation Last Admin: 05/28/20 08:49 Dose: 17 gm Documented by: Sodium Chloride () 10 - 40 ml IV UD PRN PRN Reason: SALINE FLUSH Last Admin: 05/27/20 05:25 Dose: 10 ml Documented by: Clinical Impression(s) from Imaging Studies Femur X-Ray 05/23/20 10:24 IMPRESSION: Acute left comminuted intertrochanteric femoral neck fracture Electronically Signed: Aston Griffin DO at 11:13 EDT Tel , Service support , Pelvis X-Ray 05/23/20 10:24 IMPRESSION: Acute left intertrochanteric femoral neck comminuted fracture Degenerative/postsurgical changes, as above Electronically Signed: Aston Griffin DO at 11:10 EDT Tel , Service support , Chest X-Ray 05/23/20 17:50 IMPRESSION: No acute cardiopulmonary disease. Electronically Signed: Curt Gross DO at 19:55 EDT Tel [phone], Service support , Lumbar Spine CT 05/28/20 08:30 IMPRESSION: Mild inferior endplate fracture at L1, likely acute L4/L5: Grade 1 anterolisthesis with posterior fusion. If symptoms persists, further evaluation with contrast-enhanced MRI can be obtained. Electronically Signed: Zandra Moncada MD at 9:42 EDT Tel , Service support , Inpatient E&M: 29215 Subs Hosp L2 Procedures: 27039 Advncd Care Plan 30 Min
[2020-05-29 08:05] VITALS: BP 131/77; PULSE 72; RESP 18; TEMP 36.8; O2SAT 92
--- NOTE | 2020-05-29 08:55 | PCM.PN.ORT ---
Patient Problems: Active and Suspected Problems Bacteremia (Acute) Subjective: pt seen, complain of intermittant confusion and hallucination over weekend. Pain controlled and isolated to left hip. starting to become anxious about condition, - Physical Exam Vitals/I&O's: Vital Signs Temp Pulse Resp BP Pulse Ox 98.0 F 62 16 128/74 H 95 05/29/20 03:48 05/29/20 03:48 05/29/20 03:48 05/29/20 03:48 05/29/20 03:48 Oxygen Flow Rate (L/min) 1 Oxygen Delivery Method Room Air Weight: 197 lb 1.6 oz Body Mass Index (BMI) 29.0 Finger Stick Blood Glucose 90 Intake and Output for Last 24 Hours 05/27/20 05/28/20 05/29/20 23:59 23:59 23:59 Intake Total 500 / 500 570 / 570 100 / 100 Output Total 3000 / 3000 1750 / 1750 400 / 400 Balance -2500 / -2500 -1180 / -1180 -300 / -300 General: Cooperative, No apparent distress Extremities: - - left hip no erythema or ecchymosis compartments soft no joint effusion around the knee no sign of infection and left leg Microbiology Past 72 Hours 05/27/20 06:30 Blood Culture (Wb) - Right Hand Blood Culture - Preliminary 05/23/20 19:25 Blood Culture (Wb) - Right Forearm Blood Culture - Final GPC Poss Enterococcus sp 05/23/20 19:15 Blood Culture (Wb) - Left Wrist Bacteria Detection (PCR) - Final 05/23/20 19:15 Blood Culture (Wb) - Left Wrist Blood Culture - Final Enterococcus casseliflavus (D) 05/26/20 12:35 Blood Culture (Wb) - Right Wrist Blood Culture - Preliminary 05/25/20 07:30 Blood Culture (Wb) - Right Hand Blood Culture - Preliminary No growth in 48 hours. 05/25/20 07:22 Blood Culture (Wb) - Anticubital Right Blood Culture - Preliminary No growth in 48 hours. 05/23/20 16:45 Urine, Clean Catch Urine Culture - Final Mixed Gram Positive Organisms 05/24/20 13:56 Blood Culture (Wb) - Left Hand Blood Culture - Preliminary 05/24/20 13:56 Blood Culture (Wb) - Right Hand Blood Culture - Final Current Medications Acetaminophen (Tylenol) 1,000 mg PO TID PRN PRN PRN Reason: pain 1-10/fever Last Admin: 05/27/20 21:13 Dose: 500 mg Documented by: Al Hydroxide/Mg Hydroxide (Mylanta Ii) 30 ml PO Q4H PRN PRN PRN Reason: HEARTBURN Last Admin: 05/26/20 00:31 Dose: 30 ml Documented by: Atenolol (Tenormin (Beta Sena)) 50 mg PO DAILY [facility] Last Admin: 05/28/20 09:37 Dose: 50 mg Documented by: Atorvastatin Calcium (Lipitor) 20 mg PO QHS [facility] Last Admin: 05/28/20 20:57 Dose: 20 mg Documented by: Chlorthalidone (Hygroton) 25 mg PO DAILY [facility] Last Admin: 05/28/20 09:38 Dose: 25 mg Documented by: Docusate Sodium (Colace) 200 mg PO BID PRN PRN PRN Reason: Constipation Last Admin: 05/25/20 06:47 Dose: 200 mg Documented by: Enoxaparin Sodium (Lovenox) 40 mg SC DAILY@0600 [facility] Last Admin: 05/29/20 06:50 Dose: 40 mg Documented by: Ergocalciferol (Vitamin D) 50,000 unit PO Q7D [facility] Stop: 07/11/20 17:01 Last Admin: 05/23/20 18:23 Dose: 50,000 unit Documented by: Hydromorphone HCl (Dilaudid Inj) 0.5 mg IV Q4H PRN PRN PRN Reason: Pain Score 6-10/10 Linezolid (Zyvox) 600 mg PO BID [facility] Last Admin: 05/28/20 20:57 Dose: 600 mg Documented by: Ondansetron HCl (Zofran) 4 mg IV Q8H PRN PRN PRN Reason: NAUSEA/VOMITING Last Admin: 05/24/20 15:58 Dose: 4 mg Documented by: Oxycodone HCl (Oxyir) 5 mg PO Q4H PRN PRN PRN Reason: Pain Score 4-5/10 Last Admin: 05/29/20 03:37 Dose: 5 mg Documented by: Oxycodone HCl (Oxyir) 10 mg PO Q4H PRN PRN PRN Reason: Pain Score 6-10/10 Last Admin: 08/23/20 08:49 Dose: 10 mg Documented by: Polyethylene Glycol (Miralax) 17 gm PO DAILY PRN PRN Reason: Constipation Last Admin: 05/28/20 08:49 Dose: 17 gm Documented by: Sodium Chloride () 10 - 40 ml IV UD PRN PRN Reason: SALINE FLUSH Last Admin: 05/27/20 05:25 Dose: 10 ml Documented by: Medical Necessity - Tobacco Use Smoking Status: Former smoker Assessment/Plan All Active Problems Bacteremia (Acute) Left hip intertrochanteric fracture 05/23/2020 has been on IV antibiotic since admission with continued positive blood cultures without known source. will need TFN left hip.
[2020-05-29] MEDS: Chlorthalidone 50 MG Tablet 25 MG PO (09:36)
[2020-05-29] MEDS: Atenolol 50 MG Tablet PO (09:36)
[2020-05-29] MEDS: Linezolid 600 MG Tablet PO ×2 (09:36→21:04)
[2020-05-29] MEDS: 0.9% Saline Lock 10 ML Syringe IV (15:08)
[2020-05-29 15:10] VITALS: BP 138/77; PULSE 60; RESP 18; TEMP 36.4; O2SAT 96
[2020-05-29 20:59] VITALS: BP 150/87; PULSE 66; RESP 18; TEMP 37.6; O2SAT 95
[2020-05-29] MEDS: Atorvastatin Calcium 20 MG Tablet PO (21:04)
[2020-05-30 03:12] VITALS: BP 130/81; PULSE 63; RESP 18; TEMP 36.6; O2SAT 95
[2020-05-30] MEDS: Enoxaparin 40 MG/0.4 ML Syringe SC (05:39)
[2020-05-30 07:18] LABS: Anion Gap 4 (5-15); BUN 14 mg/dL (7-18); BUN/Creat Ratio 23.2 RATIO (10-20); Calcium,Total 9.3 mg/dL (8.5-10.1); Chloride 95 mmol/L (98-107); EST Glomerular Filtration Rate 136 mL/min (>60); Est Glom Filt Rate - Afr Amer 165 mL/min (>60); Estimated Creatinine Clearance 57.93 ml/min; Glucose 142 mg/dL (74-106); Magnesium 1.8 mg/dL (1.6-2.6); Potassium 3.2 mmol/L (3.5-5.1); Sodium Level 130 mmol/L (136-145)
--- NOTE | 2020-05-30 07:39 | PN_ITS ---
Patient Problems: Active and Suspected Problems Bacteremia (Acute) Reason for Visit: Hip fracture Subjective: Patient repeat blood cultures from 05/28/2020-. Patient is on Zyvox. Case was discussed with Dr. Boateng with infectious disease he gave the okay for surgery to proceed. Case was also discussed with Dr. Berman surgeon on the case. Surgery tentatively scheduled for 06/01/2020 Objective: GENERAL: cooperative HEENT: Atraumatic; EYES; Anicteric, Normal Conjunctiva NECK; supple, normal thyroid, RESPIRATORY: Diminished to auscultation CARDIOVASCULAR: Regular S1 S2, GI: soft, normoactive bowel sounds, : No Renal angle tenderness; EXTREMITIES: No edema, no clubbing, MUSCULOSKELETAL: Lower extremity immobilized NEURO: Awake; no lateralizing signs. SKIN: No Rash PSYCH; Flat affect Vitals/I&O's: Vital Signs Temp Pulse Resp BP Pulse Ox 97.8 F 63 18 130/81 H 95 05/30/20 03:12 05/30/20 03:12 05/30/20 03:12 05/30/20 03:12 05/30/20 03:12 Oxygen Flow Rate (L/min) 1 Oxygen Delivery Method Room Air Weight: 89.403 kg Body Mass Index (BMI) 29.0 Finger Stick Blood Glucose 90 Intake and Output for Last 24 Hours 05/28/20 05/29/20 05/30/20 23:59 23:59 23:59 Intake Total 570 / 570 770 / 770 988.33 / 988.33 Output Total 1750 / 1750 1075 / 1075 275 / 275 Balance -1180 / -1180 -305 / -305 713.33 / 713.33 Microbiology Past 72 Hours 05/27/20 06:30 Blood Culture (Wb) - Right Hand Blood Culture - Preliminary GPC Poss Enterococcus sp 05/24/20 13:56 Blood Culture (Wb) - Right Hand Blood Culture - Final GPC Poss Enterococcus sp 05/24/20 13:56 Blood Culture (Wb) - Left Hand Blood Culture - Final GPC Poss Enterococcus sp 05/23/20 19:25 Blood Culture (Wb) - Right Forearm Blood Culture - Final GPC Poss Enterococcus sp 05/23/20 19:15 Blood Culture (Wb) - Left Wrist Bacteria Detection (PCR) - Final 05/23/20 19:15 Blood Culture (Wb) - Left Wrist Blood Culture - Final Enterococcus casseliflavus (D) 05/26/20 12:35 Blood Culture (Wb) - Right Wrist Blood Culture - Preliminary 05/25/20 07:30 Blood Culture (Wb) - Right Hand Blood Culture - Preliminary No growth in 48 hours. 05/25/20 07:22 Blood Culture (Wb) - Anticubital Right Blood Culture - Preliminary No growth in 48 hours. Laboratory Results 05/30/20 06:24: WBC Pending, RBC Pending, Hgb Pending, Hct Pending, MCV Pending, MCH Pending, MCHC Pending, RDW Std Deviation Pending, RDW Coeff of Flora Pending, Plt Count Pending 05/30/20 06:24: Sodium 130 L, Potassium 3.2 L, Chloride 95 L, Carbon Dioxide 31.0, Anion Gap 4 L, BUN 14, Creatinine 0.60 L, Estim Creat Clear Calc 57.93, Est GFR (MDRD) Af Amer 165, Est GFR (MDRD) Non-Af 136, BUN/Creatinine Ratio 23.2 H, Glucose 142 H, Calcium 9.3, Magnesium 1.8 Current Medications Acetaminophen (Tylenol) 1,000 mg PO TID PRN PRN PRN Reason: pain 1-10/fever Last Admin: 05/27/20 21:13 Dose: 500 mg Documented by: Al Hydroxide/Mg Hydroxide (Mylanta Ii) 30 ml PO Q4H PRN PRN PRN Reason: HEARTBURN Last Admin: 05/26/20 00:31 Dose: 30 ml Documented by: Atenolol (Tenormin (Beta Sena)) 50 mg PO DAILY [facility] Last Admin: 05/29/20 09:36 Dose: 50 mg Documented by: Atorvastatin Calcium (Lipitor) 20 mg PO QHS [facility] Last Admin: 05/29/20 21:04 Dose: 20 mg Documented by: Chlorthalidone (Hygroton) 25 mg PO DAILY [facility] Last Admin: 05/29/20 09:36 Dose: 25 mg Documented by: Docusate Sodium (Colace) 200 mg PO BID PRN PRN PRN Reason: Constipation Last Admin: 05/25/20 06:47 Dose: 200 mg Documented by: Enoxaparin Sodium (Lovenox) 40 mg SC DAILY@0600 [facility] Last Admin: 05/30/20 05:39 Dose: 40 mg Documented by: Ergocalciferol (Vitamin D) 50,000 unit PO Q7D [facility] Stop: 07/11/20 17:01 Last Admin: 05/23/20 18:23 Dose: 50,000 unit Documented by: Hydromorphone HCl (Dilaudid Inj) 0.5 mg IV Q4H PRN PRN PRN Reason: Pain Score 6-10/10 Potassium Chloride/Dextrose/Sod Cl (Kcl 20meq In D5.45ns 1000ml) 1,000 mls @ 100 mls/hr IV .Q10H [facility] Last Admin: 05/30/20 00:52 Dose: 100 mls/hr Documented by: Linezolid (Zyvox) 600 mg PO BID [facility] Last Admin: 05/29/20 21:04 Dose: 600 mg Documented by: Nutritional Formula (Lactose Free) (Ensure Enlive) 120 ml PO 4X/DAY [facility] Last Admin: 05/29/20 21:04 Dose: 120 ml Documented by: Ondansetron HCl (Zofran) 4 mg IV Q8H PRN PRN PRN Reason: NAUSEA/VOMITING Last Admin: 05/24/20 15:58 Dose: 4 mg Documented by: Oxycodone HCl (Oxyir) 5 mg PO Q4H PRN PRN PRN Reason: Pain Score 4-5/10 Last Admin: 05/29/20 19:10 Dose: 5 mg Documented by: Oxycodone HCl (Oxyir) 10 mg PO Q4H PRN PRN PRN Reason: Pain Score 6-10/10 Last Admin: 05/28/20 08:49 Dose: 10 mg Documented by: Polyethylene Glycol (Miralax) 17 gm PO DAILY PRN PRN Reason: Constipation Last Admin: 05/28/20 08:49 Dose: 17 gm Documented by: Sodium Chloride () 10 - 40 ml IV UD PRN PRN Reason: SALINE FLUSH Last Admin: 05/29/20 15:08 Dose: 10 ml Documented by: Medical Necessity - Tobacco Use Smoking Status: Former smoker Assessment/Plan All Active Problems Bacteremia (Acute) Patient is an 80-year-old gentleman admitted following a mechanical fall with subsequent left hip fracture on 05/23/2020 patient was later found to have severe sepsis with blood cultures showing gram-positive cocci (enterococcus). Patient underwent TTE with no vegetations found 1. Acute mechanical fall with subsequent Acute left intertrochanteric femoral neck comminuted fracture -Patient mayelin-op assessment using NSQIP deemed patient to be below average risk for perioperative complications. Consult placed to orthopedic surgery. Plan is for patient to undergo surgical intervention pending resolution office bacteremia - 05/30/2020; Patient repeat blood cultures from 05/28/2020-. Patient is on Zyvox. Case was discussed with Dr. Boateng with infectious disease he gave the okay for surgery to proceed. Case was also discussed with Dr. Berman surgeon on the case. Surgery tentatively scheduled for 06/01/2020 also updated patient's son (Fernando Mortensen?[phone]?patient son wants to updated daily) 2. Severe sepsis secondary to enterococcal bacteremia ?Patient is currently on cefazolin source of infection so far not clear. Patient underwent TTE which was negative for vegetations. Infectious disease on consult - 05/30/2020; Patient repeat blood cultures from 05/28/2020-. Patient is on Zyvox. Case was discussed with Dr. Boateng with infectious disease he gave the okay for surgery to proceed 3. Acute encephalopathy ?Secondary to a combination of toxic encephalopathy from narcotics as well as patient's underlying infection 4. L1 compression fractures ?Symptomatic treatment 5. History of previous CVA ?On aspirin 6. Dyslipidemia -Patient is on statin therapy, continued at home dose 7. DVT prophylaxis ?Enoxaparin Inpatient E&M: 66828 [facility] L2
[2020-05-30 07:40] VITALS: BP 123/63; PULSE 60; RESP 18; TEMP 36.8; O2SAT 98
[2020-05-30] MEDS: oxyCODONE 5 MG Tablet 10 MG PO (07:54)
[2020-05-30 08:00] VITALS: O2SAT 98
[2020-05-30 08:33] LABS: Hematocrit 36.6 % (40-54); Hemoglobin 12.6 g/dL (13.0-16.5); Mean Corp Hgb Conc 34.4 g/dL (32-36); Mean Corpuscular Hgb 31.9 pg (27.0-32.0); Mean Corpuscular Volume 92.7 fL (80-94); Mean Platelet Vol. 9.4 fl (6.2-12.0); Platelet Count 280 K/mm3 (150-450); RBC Distribution Width CV 12.4 % (11.6-14.6); RBC Distribution Width SD 41.3 fl (35.1-43.9); Red Blood Count 3.95 M/mm3 (4.6-6.2); White Blood Count 13.8 K/mm3 (4.4-11.0)
[2020-05-30] MEDS: Chlorthalidone 50 MG Tablet 25 MG PO (10:19)
[2020-05-30] MEDS: Atenolol 50 MG Tablet PO (10:19)
[2020-05-30] MEDS: Linezolid 600 MG Tablet PO (10:21)
--- NOTE | 2020-05-30 12:46 | PCM.PN.ID ---
Patient Problems: Active and Suspected Problems Bacteremia (Acute) Subjective: Patient clinically stable and eating lunch. No fevers. No cardiopulmonary distress. - Physical Exam Vitals/I&O's: Vital Signs Temp Pulse Resp BP Pulse Ox 98.2 F 60 18 123/63 H 98 05/30/20 07:40 05/30/20 07:40 05/30/20 07:40 05/30/20 07:40 05/30/20 07:40 Oxygen Flow Rate (L/min) 1 Oxygen Delivery Method Room Air Weight: 89.403 kg Body Mass Index (BMI) 29.0 Finger Stick Blood Glucose 90 Intake and Output for Last 24 Hours 05/28/20 05/29/20 05/30/20 23:59 23:59 23:59 Intake Total 570 / 570 770 / 770 2778.33 / 2778.33 Output Total 1750 / 1750 1075 / 1075 575 / 575 Balance -1180 / -1180 -305 / -305 2203.33 / 2203.33 Patient is alert sponsor lungs are clear heart exam S1-S2 no murmurs appreciated abdomen soft nontender Microbiology Past 72 Hours 05/28/20 07:40 Blood Culture (Wb) - Left Hand Blood Culture - Preliminary No growth in 48 hours. 05/28/20 07:30 Blood Culture (Wb) - Right Hand Blood Culture - Preliminary No growth in 48 hours. 05/25/20 07:22 Blood Culture (Wb) - Anticubital Right Blood Culture - Final No growth in 5 days. 05/25/20 07:30 Blood Culture (Wb) - Right Hand Blood Culture - Final No growth in 5 days. 05/27/20 06:30 Blood Culture (Wb) - Right Hand Blood Culture - Final Enterococcus casseliflavus (D) 05/24/20 13:56 Blood Culture (Wb) - Right Hand Blood Culture - Final GPC Poss Enterococcus sp 05/24/20 13:56 Blood Culture (Wb) - Left Hand Blood Culture - Final GPC Poss Enterococcus sp 05/23/20 19:25 Blood Culture (Wb) - Right Forearm Blood Culture - Final GPC Poss Enterococcus sp 05/23/20 19:15 Blood Culture (Wb) - Left Wrist Bacteria Detection (PCR) - Final 05/23/20 19:15 Blood Culture (Wb) - Left Wrist Blood Culture - Final Enterococcus casseliflavus (D) 05/26/20 12:35 Blood Culture (Wb) - Right Wrist Blood Culture - Preliminary Laboratory Results 05/30/20 06:24: WBC 13.8 H, RBC 3.95 L, Hgb 12.6 L, Hct 36.6 L, MCV 92.7, MCH 31.9, MCHC 34.4, RDW Std Deviation 41.3, RDW Coeff of Flora 12.4, Plt Count 280, MPV 9.4 05/30/20 06:24: Sodium 130 L, Potassium 3.2 L, Chloride 95 L, Carbon Dioxide 31.0, Anion Gap 4 L, BUN 14, Creatinine 0.60 L, Estim Creat Clear Calc 57.93, Est GFR (MDRD) Af Amer 165, Est GFR (MDRD) Non-Af 136, BUN/Creatinine Ratio 23.2 H, Glucose 142 H, Calcium 9.3, Magnesium 1.8 Current Medications Acetaminophen (Tylenol) 1,000 mg PO TID PRN PRN PRN Reason: pain 1-10/fever Last Admin: 05/27/20 21:13 Dose: 500 mg Documented by: Al Hydroxide/Mg Hydroxide (Mylanta Ii) 30 ml PO Q4H PRN PRN PRN Reason: HEARTBURN Last Admin: 05/26/20 00:31 Dose: 30 ml Documented by: Atenolol (Tenormin (Beta Sena)) 50 mg PO DAILY [facility] Last Admin: 05/30/20 10:19 Dose: 50 mg Documented by: Atorvastatin Calcium (Lipitor) 20 mg PO QHS [facility] Last Admin: 05/29/20 21:04 Dose: 20 mg Documented by: Chlorthalidone (Hygroton) 25 mg PO DAILY [facility] Last Admin: 05/30/20 10:19 Dose: 25 mg Documented by: Docusate Sodium (Colace) 200 mg PO BID PRN PRN PRN Reason: Constipation Last Admin: 05/25/20 06:47 Dose: 200 mg Documented by: Enoxaparin Sodium (Lovenox) 40 mg SC DAILY@0600 [facility] Last Admin: 05/30/20 05:39 Dose: 40 mg Documented by: Ergocalciferol (Vitamin D) 50,000 unit PO Q7D [facility] Stop: 07/11/20 17:01 Last Admin: 05/23/20 18:23 Dose: 50,000 unit Documented by: Hydromorphone HCl (Dilaudid Inj) 0.5 mg IV Q4H PRN PRN PRN Reason: Pain Score 6-10/10 Potassium Chloride/Dextrose/Sod Cl (Kcl 20meq In D5.45ns 1000ml) 1,000 mls @ 100 mls/hr IV .Q10H [facility] Last Admin: 05/30/20 11:35 Dose: 100 mls/hr Documented by: Ampicillin Sodium 2 gm/ Sodium (Chloride) 100 mls @ 200 mls/hr IV Q6 [facility] Nutritional Formula (Lactose Free) (Ensure Enlive) 120 ml PO 4X/DAY [facility] Last Admin: 05/30/20 10:18 Dose: 120 ml Documented by: Ondansetron HCl (Zofran) 4 mg IV Q8H PRN PRN PRN Reason: NAUSEA/VOMITING Last Admin: 05/24/20 15:58 Dose: 4 mg Documented by: Oxycodone HCl (Oxyir) 5 mg PO Q4H PRN PRN PRN Reason: Pain Score 4-5/10 Last Admin: 05/29/20 19:10 Dose: 5 mg Documented by: Oxycodone HCl (Oxyir) 10 mg PO Q4H PRN PRN PRN Reason: Pain Score 6-10/10 Last Admin: 05/30/20 07:54 Dose: 10 mg Documented by: Polyethylene Glycol (Miralax) 17 gm PO DAILY PRN PRN Reason: Constipation Last Admin: 05/28/20 08:49 Dose: 17 gm Documented by: Potassium Chloride (K-Dur) 20 meq PO BIDCM [facility] Sodium Chloride () 10 - 40 ml IV UD PRN PRN Reason: SALINE FLUSH Last Admin: 05/29/20 15:08 Dose: 10 ml Documented by: Medical Necessity - Tobacco Use Smoking Status: Former smoker Route of nutrition/ use of supplements: [] Nutritional Intake: [] IV Site: [] Ribeiro Catheter: [] - Assessment/Plan Antibiotics: [] Assessment/Plan: [] Active and Suspected Problems Bacteremia (Acute) Enterococcal bacteremia in elderly man who fell and fractured right hip. The significance of the penicillin allergy is questionable and will be reasonable to challenge her with ampicillin 2 g IV every 6 hours. Okay to proceed with orthopedic surgery from my standpoint.
[2020-05-30 14:43] VITALS: BP 110/65; PULSE 61; RESP 18; TEMP 36.7; O2SAT 97
[2020-05-30] MEDS: 0.9% Saline Lock 10 ML Syringe IV ×5 (15:24→23:15)
[2020-05-30 22:50] VITALS: BP 114/65; PULSE 65; RESP 18; TEMP 37.7; O2SAT 94
[2020-05-30] MEDS: Atorvastatin Calcium 20 MG Tablet PO (23:06)
[2020-05-30] MEDS: Acetaminophen 500 MG Tablet 1000 MG PO (23:06)
[2020-05-30] MEDS: Ondansetron 4 MG/2 ML Vial IV (23:12)
[2020-05-31 02:14] VITALS: BP 119/74; PULSE 72; RESP 17; TEMP 37.1; O2SAT 95
[2020-05-31 07:15] VITALS: O2SAT 94
[2020-05-31 07:18] LABS: Hematocrit 36.8 % (40-54); Hemoglobin 11.8 g/dL (13.0-16.5); Mean Corp Hgb Conc 32.1 g/dL (32-36); Mean Corpuscular Hgb 30.5 pg (27.0-32.0); Mean Corpuscular Volume 95.1 fL (80-94); Mean Platelet Vol. 8.3 fl (6.2-12.0); Platelet Count 345 K/mm3 (150-450); RBC Distribution Width CV 12.7 % (11.6-14.6); RBC Distribution Width SD 43.7 fl (35.1-43.9); Red Blood Count 3.87 M/mm3 (4.6-6.2); White Blood Count 15.3 K/mm3 (4.4-11.0)
[2020-05-31 07:58] LABS: Anion Gap 4 (5-15); BUN 12 mg/dL (7-18); BUN/Creat Ratio 19.2 RATIO (10-20); Calcium,Total 9.3 mg/dL (8.5-10.1); Chloride 99 mmol/L (98-107); Creatinine, Serum 0.63 mg/dL (0.70-1.30); EST Glomerular Filtration Rate 131 mL/min (>60); Est Glom Filt Rate - Afr Amer 158 mL/min (>60); Estimated Creatinine Clearance 57.93 ml/min; Glucose 127 mg/dL (74-106); Potassium 3.6 mmol/L (3.5-5.1); Sodium Level 133 mmol/L (136-145)
[2020-05-31 08:54] VITALS: BP 118/75; PULSE 63; RESP 18; TEMP 36.7; O2SAT 96
[2020-05-31] MEDS: Chlorthalidone 50 MG Tablet 25 MG PO (09:02)
[2020-05-31] MEDS: Atenolol 50 MG Tablet PO (09:02)
--- NOTE | 2020-05-31 09:45 | PN_ITS ---
Patient Problems: Active and Suspected Problems Bacteremia (Acute) Subjective: Waxing and waning MS but good now. Pt denies pain. Po intake is not great but drinking well Vitals/I&O's: Vital Signs Temp Pulse Resp BP Pulse Ox 98.0 F 63 18 118/75 96 05/31/20 08:54 05/31/20 08:54 05/31/20 08:54 05/31/20 08:54 05/31/20 08:54 Oxygen Flow Rate (L/min) 1 Oxygen Delivery Method Room Air Weight: 89.403 kg Body Mass Index (BMI) 29.0 Finger Stick Blood Glucose 90 Intake and Output for Last 24 Hours 05/29/20 05/30/20 05/31/20 23:59 23:59 23:59 Intake Total 770 / 770 5258.33 / 5258.33 1183.33 / 1183.33 Output Total 1075 / 1075 1225 / 1225 900 / 900 Balance -305 / -305 4033.33 / 4033.33 283.33 / 283.33 General: Alert, Cooperative, No apparent distress, Well developed, Well nourished HEENT: Atraumatic, PERRLA, EOMI, Normocephalic, EAC Clear Oral: Moist Mucosa, No Gingival or Mucosal Lesions/ Ulcerations, - - Mallampati 2 Neck: Supple, No JVD, Trachea Midline, Thyroid Normal Size and Texture Lungs: Clear to auscultation, Normal air movement, No rhonchi, No wheeze, No rales Cardiovascular: Regular rate, Regular Rhythm, Normal S1, Normal S2, No murmurs, No Ectopic Activity, No rub noted, No Gallop Abdomen: Bowel Sounds Present, Soft, Non Tender, Non-Distended, No Hepato- splenomegaly, No hernias noted Extremities: No clubbing, No cyanosis, No edema, Capillary Refill Less than 3 Seconds, Peripheral Pulses Normal Skin: No rashes, No breakdown Musculoskeletal: No Muscle Wasting, Arthritic Changes, - - L leg ER and shortened Lymphatic: No Cervical, Supraclavicular, or Inguinal Adenopathy Neurological: Cranial nerves II-XII grossly intact, Neuro grossly intact, Muscle tone normal, Coordination normal Psych/Mental Status: Normal Affect, Appropriate, - - very pleasant Microbiology Past 72 Hours 05/28/20 07:40 Blood Culture (Wb) - Left Hand Blood Culture - Preliminary No growth in 48 hours. 05/28/20 07:30 Blood Culture (Wb) - Right Hand Blood Culture - Preliminary No growth in 48 hours. 05/25/20 07:22 Blood Culture (Wb) - Anticubital Right Blood Culture - Final No growth in 5 days. 05/25/20 07:30 Blood Culture (Wb) - Right Hand Blood Culture - Final No growth in 5 days. 05/27/20 06:30 Blood Culture (Wb) - Right Hand Blood Culture - Final Enterococcus casseliflavus (D) 05/24/20 13:56 Blood Culture (Wb) - Right Hand Blood Culture - Final GPC Poss Enterococcus sp 05/24/20 13:56 Blood Culture (Wb) - Left Hand Blood Culture - Final GPC Poss Enterococcus sp 05/23/20 19:25 Blood Culture (Wb) - Right Forearm Blood Culture - Final GPC Poss Enterococcus sp 05/23/20 19:15 Blood Culture (Wb) - Left Wrist Bacteria Detection (PCR) - Final 05/23/20 19:15 Blood Culture (Wb) - Left Wrist Blood Culture - Final Enterococcus casseliflavus (D) 05/26/20 12:35 Blood Culture (Wb) - Right Wrist Blood Culture - Preliminary Laboratory Results 05/31/20 06:36: WBC 15.3 H, RBC 3.87 L, Hgb 11.8 L, Hct 36.8 L, MCV 95.1 H, MCH 30.5, MCHC 32.1 D, RDW Std Deviation 43.7, RDW Coeff of Flora 12.7, Plt Count 345, MPV 8.3 05/31/20 06:36: Sodium 133 L, Potassium 3.6, Chloride 99, Carbon Dioxide 30.0, Anion Gap 4 L, BUN 12, Creatinine 0.63 L, Estim Creat Clear Calc 57.93, Est GFR (MDRD) Af Amer 158, Est GFR (MDRD) Non-Af 131, BUN/Creatinine Ratio 19.2, Glucose 127 H, Calcium 9.3 Current Medications Acetaminophen (Tylenol) 1,000 mg PO TID PRN PRN PRN Reason: pain 1-10/fever Last Admin: 05/30/20 23:06 Dose: 1,000 mg Documented by: Al Hydroxide/Mg Hydroxide (Mylanta Ii) 30 ml PO Q4H PRN PRN PRN Reason: HEARTBURN Last Admin: 05/26/20 00:31 Dose: 30 ml Documented by: Atenolol (Tenormin (Beta Sena)) 50 mg PO DAILY [facility] Last Admin: 05/31/20 09:02 Dose: 50 mg Documented by: Atorvastatin Calcium (Lipitor) 20 mg PO QHS [facility] Last Admin: 05/30/20 23:06 Dose: 20 mg Documented by: Chlorthalidone (Hygroton) 25 mg PO DAILY [facility] Last Admin: 05/31/20 09:02 Dose: 25 mg Documented by: Docusate Sodium (Colace) 200 mg PO BID PRN PRN PRN Reason: Constipation Last Admin: 05/25/20 06:47 Dose: 200 mg Documented by: Enoxaparin Sodium (Lovenox) 40 mg SC DAILY@0600 [facility] Last Admin: 05/30/20 05:39 Dose: 40 mg Documented by: Ergocalciferol (Vitamin D) 50,000 unit PO Q7D [facility] Stop: 07/11/20 17:01 Last Admin: 05/30/20 17:31 Dose: 50,000 unit Documented by: Hydromorphone HCl (Dilaudid Inj) 0.5 mg IV Q4H PRN PRN PRN Reason: Pain Score 6-10/10 Potassium Chloride/Dextrose/Sod Cl (Kcl 20meq In D5.45ns 1000ml) 1,000 mls @ 100 mls/hr IV .Q10H [facility] Last Infusion: 05/31/20 07:30 Dose: 100 mls/hr Documented by: Ampicillin Sodium 2 gm/ Sodium (Chloride) 100 mls @ 200 mls/hr IV Q6 [facility] Last Infusion: 05/31/20 07:30 Dose: Infused Documented by: Nutritional Formula (Lactose Free) (Ensure Enlive) 120 ml PO 4X/DAY [facility] Last Admin: 05/31/20 09:00 Dose: 120 ml Documented by: Ondansetron HCl (Zofran) 4 mg IV Q8H PRN PRN PRN Reason: NAUSEA/VOMITING Last Admin: 05/30/20 23:12 Dose: 4 mg Documented by: Oxycodone HCl (Oxyir) 5 mg PO Q4H PRN PRN PRN Reason: Pain Score 4-5/10 Last Admin: 05/29/20 19:10 Dose: 5 mg Documented by: Oxycodone HCl (Oxyir) 10 mg PO Q4H PRN PRN PRN Reason: Pain Score 6-10/10 Last Admin: 05/30/20 07:54 Dose: 10 mg Documented by: Polyethylene Glycol (Miralax) 17 gm PO DAILY PRN PRN Reason: Constipation Last Admin: 05/28/20 08:49 Dose: 17 gm Documented by: Potassium Chloride (K-Dur) 20 meq PO BIDCM [facility] Last Admin: 05/31/20 09:01 Dose: 20 meq Documented by: Sodium Chloride () 10 - 40 ml IV UD PRN PRN Reason: SALINE FLUSH Last Admin: 05/30/20 23:15 Dose: 10 ml Documented by: STROKE Vital Signs/Narrative: Vital Signs Temp Pulse Resp BP Pulse Ox 05/31/20 08:54 98.0 F 63 18 118/75 96 05/31/20 07:15 94 Medical Necessity - Tobacco Use Smoking Status: Former smoker Assessment/Plan All Active Problems Bacteremia (Acute) Acute L Intertrochanteric Femoral Neck Comminuted Fracture 2/2 Mechanical Fall -Patient mayelin-op assessment using NSQIP deemed patient to be below average risk for perioperative complications -Ortho following -plan if now for OR on Friday -with white count elevation will do MAUREEN prior to OR -PRN pain meds and bowel regimen Severe Sepsis 2/2 Enterococcal Bacteremia -amp q 6 hrs per ID -pt seems to be tolerating well Leukocytosis -up a bit today -ID following -Ortho would like MAUREEN prior to OR to r/o IE with elevation -consult placed for MAUREEN Acute Encephalopathy-multifactorial -waxes and wanes -seems to be better in am and deteriorates in afternoon -monitor Mild Hyponatremia -was WNL on admission -is on thiazide diuretic -monitor and if remains low will consider d/c of diuretic -also with D51/2 NS running will reduce to 50 today -check am lab Hypokalemia -resolved will monitor -has daily scheduled K L1 Compression Fractures -treat symptomatically H/O Stroke -ASA HPL/HTN -continue Statin -continue Chlorthalidone/Atenolol Vitamin D Deficiency -continue replacement DVT prophylaxis -Lovenox daily Code Status -Full
[2020-05-31] MEDS: Enoxaparin 40 MG/0.4 ML Syringe SC (10:05)
[2020-05-31] MEDS: oxyCODONE 5 MG Tablet 10 MG PO (10:08)
--- NOTE | 2020-05-31 11:57 | CT_ITS ---
STUDY: CT ABDOMEN AND PELVIS WITHOUT CONTRAST REASON FOR EXAM: Male, 80 years old. PAIN AND SEPSIS. FRACTURED LEFT HIP RADIATION DOSAGE (If Supplied By Facility): CTDIvol = ( 13.65 ) mGy, DLP = ( 777.73 ) mGycm TECHNIQUE: Transaxial images were obtained from the dome of the diaphragm to the symphysis pubis without oral contrast, and without intravenous contrast. Sagittal and coronal images were reconstructed. Individualized dose optimization techniques were used for this CT. COMPARISON: None. FINDINGS: Small right pleural effusion with the right basilar atelectasis. Bullous changes in the left lower lobe. Coronary artery calcification. There are scattered low density nodules in the liver most likely representing multiple cysts. Normal gallbladder and extrahepatic biliary system. Normal spleen. Normal pancreas. Normal bilateral adrenal glands. There is a 1 cm x 1.5 cm catheter is in the upper pole calyx of the right kidney. There is a 4.57 m cyst in the medial inferior pole of the right kidney. Normal left kidney. Normal visualized stomach. Normal small intestine. There are multiple colonic diverticula consistent with diverticulosis. The appendix is visualized and appears normal. There is diffuse atherosclerotic calcification of the abdominal aorta, without a demonstrated aneurysm. Normal inferior vena cava. Normal retroperitoneum. There is diffuse thickening of the urinary bladder wall. A ZAYAS catheter is seen within the empty bladder. There is enlargement of the prostate gland. It measures 4.8 cm x 6.4 cm. Small bilateral inguinal hernias containing fat. Prior laminectomy and fusion at the L4-L5 level. Grade 1 anterior listhesis of L4 on L5. CT/Abdomen/Pel W ORAL Cont Only IMPRESSION: Diffuse bladder wall thickening. Prostatic enlargement. Findings suggesting multiple cysts in the liver. 1.5 cm x 1 cm calculus in the upper pole calyx of the right kidney. Electronically Signed: Winston Santos, at 15:19 EDT , Service support ,
--- NOTE | 2020-05-31 13:35 | PN.ID_ITS ---
Patient Problems: Active and Suspected Problems Bacteremia (Acute) Subjective: Patient overall clinically stable had an uneventful night. No fever. No cardiopulmonary distress. Tolerating ampicillin well. Most recent blood cultures remain sterile Objective: Does not appear toxic lungs are clear heart exam S1-S2 abdomen is obese but soft - Physical Exam Vitals/I&O's: Vital Signs Temp Pulse Resp BP Pulse Ox 98.0 F 63 18 118/75 96 05/31/20 08:54 05/31/20 08:54 05/31/20 08:54 05/31/20 08:54 05/31/20 08:54 Oxygen Flow Rate (L/min) 1 Oxygen Delivery Method Room Air Weight: 89.403 kg Body Mass Index (BMI) 29.0 Finger Stick Blood Glucose 90 Intake and Output for Last 24 Hours 05/29/20 05/30/20 05/31/20 23:59 23:59 23:59 Intake Total 770 / 770 5258.33 / 5258.33 1598.33 / 1598.33 Output Total 1075 / 1075 1225 / 1225 900 / 900 Balance -305 / -305 4033.33 / 4033.33 698.33 / 698.33 Microbiology Past 72 Hours 05/28/20 07:40 Blood Culture (Wb) - Left Hand Blood Culture - Preliminary No growth in 48 hours. 05/28/20 07:30 Blood Culture (Wb) - Right Hand Blood Culture - Preliminary No growth in 48 hours. 05/25/20 07:22 Blood Culture (Wb) - Anticubital Right Blood Culture - Final No growth in 5 days. 05/25/20 07:30 Blood Culture (Wb) - Right Hand Blood Culture - Final No growth in 5 days. 05/27/20 06:30 Blood Culture (Wb) - Right Hand Blood Culture - Final Enterococcus casseliflavus (D) 05/24/20 13:56 Blood Culture (Wb) - Right Hand Blood Culture - Final GPC Poss Enterococcus sp 05/24/20 13:56 Blood Culture (Wb) - Left Hand Blood Culture - Final GPC Poss Enterococcus sp 05/23/20 19:25 Blood Culture (Wb) - Right Forearm Blood Culture - Final GPC Poss Enterococcus sp 05/23/20 19:15 Blood Culture (Wb) - Left Wrist Bacteria Detection (PCR) - Final 05/23/20 19:15 Blood Culture (Wb) - Left Wrist Blood Culture - Final Enterococcus casseliflavus (D) Laboratory Results 05/31/20 06:36: WBC 15.3 H, RBC 3.87 L, Hgb 11.8 L, Hct 36.8 L, MCV 95.1 H, MCH 30.5, MCHC 32.1 D, RDW Std Deviation 43.7, RDW Coeff of Flora 12.7, Plt Count 345, MPV 8.3 05/31/20 06:36: Sodium 133 L, Potassium 3.6, Chloride 99, Carbon Dioxide 30.0, Anion Gap 4 L, BUN 12, Creatinine 0.63 L, Estim Creat Clear Calc 57.93, Est GFR (MDRD) Af Amer 158, Est GFR (MDRD) Non-Af 131, BUN/Creatinine Ratio 19.2, Glucose 127 H, Calcium 9.3 Current Medications Acetaminophen (Tylenol) 1,000 mg PO TID PRN PRN PRN Reason: pain 1-10/fever Last Admin: 05/30/20 23:06 Dose: 1,000 mg Documented by: Al Hydroxide/Mg Hydroxide (Mylanta Ii) 30 ml PO Q4H PRN PRN PRN Reason: HEARTBURN Last Admin: 05/26/20 00:31 Dose: 30 ml Documented by: Atenolol (Tenormin (Beta Sena)) 50 mg PO DAILY [facility] Last Admin: 05/31/20 09:02 Dose: 50 mg Documented by: Atorvastatin Calcium (Lipitor) 20 mg PO QHS [facility] Last Admin: 05/30/20 23:06 Dose: 20 mg Documented by: Chlorthalidone (Hygroton) 25 mg PO DAILY [facility] Last Admin: 05/31/20 09:02 Dose: 25 mg Documented by: Docusate Sodium (Colace) 200 mg PO BID PRN PRN PRN Reason: Constipation Last Admin: 05/25/20 06:47 Dose: 200 mg Documented by: Enoxaparin Sodium (Lovenox) 40 mg SC DAILY@0600 [facility] Last Admin: 05/31/20 10:05 Dose: 40 mg Documented by: Ergocalciferol (Vitamin D) 50,000 unit PO Q7D [facility] Stop: 07/11/20 17:01 Last Admin: 05/30/20 17:31 Dose: 50,000 unit Documented by: Hydromorphone HCl (Dilaudid Inj) 0.5 mg IV Q4H PRN PRN PRN Reason: Pain Score 6-10/10 Potassium Chloride/Dextrose/Sod Cl (Kcl 20meq In D5.45ns 1000ml) 1,000 mls @ 50 mls/hr IV .Q20H [facility] Last Infusion: 05/31/20 12:20 Dose: 50 mls/hr Documented by: Ampicillin Sodium 2 gm/ Sodium (Chloride) 100 mls @ 200 mls/hr IV Q6 [facility] Last Infusion: 05/31/20 12:20 Dose: Infused Documented by: Nutritional Formula (Lactose Free) (Ensure Enlive) 120 ml PO 4X/DAY [facility] Last Admin: 05/31/20 09:00 Dose: 120 ml Documented by: Ondansetron HCl (Zofran) 4 mg IV Q8H PRN PRN PRN Reason: NAUSEA/VOMITING Last Admin: 05/30/20 23:12 Dose: 4 mg Documented by: Oxycodone HCl (Oxyir) 5 mg PO Q4H PRN PRN PRN Reason: Pain Score 4-5/10 Last Admin: 05/29/20 19:10 Dose: 5 mg Documented by: Oxycodone HCl (Oxyir) 10 mg PO Q4H PRN PRN PRN Reason: Pain Score 6-10/10 Last Admin: 05/31/20 10:08 Dose: 10 mg Documented by: Polyethylene Glycol (Miralax) 17 gm PO DAILY PRN PRN Reason: Constipation Last Admin: 05/28/20 08:49 Dose: 17 gm Documented by: Potassium Chloride (K-Dur) 20 meq PO BIDCM [facility] Last Admin: 05/31/20 09:01 Dose: 20 meq Documented by: Sodium Chloride () 10 - 40 ml IV UD PRN PRN Reason: SALINE FLUSH Last Admin: 05/30/20 23:15 Dose: 10 ml Documented by: Medical Necessity - Tobacco Use Smoking Status: Former smoker Route of nutrition/ use of supplements: [] Nutritional Intake: [] IV Site: [] Ribeiro Catheter: [] Enterococcal bacteremia on parenteral ampicillin. Patient is scheduled for diagnostic transesophageal echocardiogram tomorrow.
[2020-05-31 13:57] VITALS: BP 113/67; PULSE 58; RESP 18; TEMP 36.2; O2SAT 95
[2020-05-31 14:02] VITALS: PULSE 58
--- NOTE | 2020-05-31 16:03 | PN.ORTHO_ITS ---
Patient Problems: Active and Suspected Problems Bacteremia (Acute) Subjective: Seen and examined with at bedside patient doing well pain controlled denies fevers chills - Physical Exam Vitals/I&O's: Vital Signs Temp Pulse Resp BP Pulse Ox 97.1 F L 58 L 18 113/67 95 05/31/20 13:57 05/31/20 14:02 05/31/20 13:57 05/31/20 13:57 05/31/20 13:57 Oxygen Flow Rate (L/min) 1 Oxygen Delivery Method Room Air Weight: 197 lb 1.598 oz Body Mass Index (BMI) 29.0 Finger Stick Blood Glucose 90 Intake and Output for Last 24 Hours 05/29/20 05/30/20 05/31/20 23:59 23:59 23:59 Intake Total 770 / 770 5258.33 / 5258.33 2398.33 / 2398.33 Output Total 1075 / 1075 1225 / 1225 1450 / 1450 Balance -305 / -305 4033.33 / 4033.33 948.33 / 948.33 General: Cooperative, No apparent distress Extremities: - - Examination left lower extremity unchanged continues to have no joint effusion or pain about the knee or left lower extremity hardware swelling left hip is unchanged no erythema Microbiology Past 72 Hours 05/26/20 12:35 Blood Culture (Wb) - Right Wrist Blood Culture - Final 05/28/20 07:40 Blood Culture (Wb) - Left Hand Blood Culture - Preliminary No growth in 48 hours. 05/28/20 07:30 Blood Culture (Wb) - Right Hand Blood Culture - Preliminary No growth in 48 hours. 05/25/20 07:22 Blood Culture (Wb) - Anticubital Right Blood Culture - Final No growth in 5 days. 05/25/20 07:30 Blood Culture (Wb) - Right Hand Blood Culture - Final No growth in 5 days. 05/27/20 06:30 Blood Culture (Wb) - Right Hand Blood Culture - Final Enterococcus casseliflavus (D) 05/24/20 13:56 Blood Culture (Wb) - Right Hand Blood Culture - Final GPC Poss Enterococcus sp 05/24/20 13:56 Blood Culture (Wb) - Left Hand Blood Culture - Final GPC Poss Enterococcus sp 05/23/20 19:25 Blood Culture (Wb) - Right Forearm Blood Culture - Final GPC Poss Enterococcus sp 05/23/20 19:15 Blood Culture (Wb) - Left Wrist Bacteria Detection (PCR) - Final 05/23/20 19:15 Blood Culture (Wb) - Left Wrist Blood Culture - Final Enterococcus casseliflavus (D) Laboratory Results 05/31/20 06:36: WBC 15.3 H, RBC 3.87 L, Hgb 11.8 L, Hct 36.8 L, MCV 95.1 H, MCH 30.5, MCHC 32.1 D, RDW Std Deviation 43.7, RDW Coeff of Flora 12.7, Plt Count 345, MPV 8.3 05/31/20 06:36: Sodium 133 L, Potassium 3.6, Chloride 99, Carbon Dioxide 30.0, Anion Gap 4 L, BUN 12, Creatinine 0.63 L, Estim Creat Clear Calc 57.93, Est GFR (MDRD) Af Amer 158, Est GFR (MDRD) Non-Af 131, BUN/Creatinine Ratio 19.2, Glucose 127 H, Calcium 9.3 Current Medications Acetaminophen (Tylenol) 1,000 mg PO TID PRN PRN PRN Reason: pain 1-10/fever Last Admin: 05/30/20 23:06 Dose: 1,000 mg Documented by: Al Hydroxide/Mg Hydroxide (Mylanta Ii) 30 ml PO Q4H PRN PRN PRN Reason: HEARTBURN Last Admin: 05/26/20 00:31 Dose: 30 ml Documented by: Atenolol (Tenormin (Beta Sena)) 50 mg PO DAILY [facility] Last Admin: 05/31/20 09:02 Dose: 50 mg Documented by: Atorvastatin Calcium (Lipitor) 20 mg PO QHS [facility] Last Admin: 05/30/20 23:06 Dose: 20 mg Documented by: Chlorthalidone (Hygroton) 25 mg PO DAILY [facility] Last Admin: 05/31/20 09:02 Dose: 25 mg Documented by: Docusate Sodium (Colace) 200 mg PO BID PRN PRN PRN Reason: Constipation Last Admin: 05/25/20 06:47 Dose: 200 mg Documented by: Enoxaparin Sodium (Lovenox) 40 mg SC DAILY@0600 [facility] Last Admin: 05/31/20 10:05 Dose: 40 mg Documented by: Ergocalciferol (Vitamin D) 50,000 unit PO Q7D [facility] Stop: 07/11/20 17:01 Last Admin: 05/30/20 17:31 Dose: 50,000 unit Documented by: Hydromorphone HCl (Dilaudid Inj) 0.5 mg IV Q4H PRN PRN PRN Reason: Pain Score 6-10/10 Potassium Chloride/Dextrose/Sod Cl (Kcl 20meq In D5.45ns 1000ml) 1,000 mls @ 50 mls/hr IV .Q20H [facility] Last Infusion: 05/31/20 12:20 Dose: 50 mls/hr Documented by: Ampicillin Sodium 2 gm/ Sodium (Chloride) 100 mls @ 200 mls/hr IV Q6 [facility] Last Infusion: 05/31/20 12:20 Dose: Infused Documented by: Nutritional Formula (Lactose Free) (Ensure Enlive) 120 ml PO 4X/DAY [facility] Last Admin: 05/31/20 13:38 Dose: Not Given Documented by: Ondansetron HCl (Zofran) 4 mg IV Q8H PRN PRN PRN Reason: NAUSEA/VOMITING Last Admin: 05/30/20 23:12 Dose: 4 mg Documented by: Oxycodone HCl (Oxyir) 5 mg PO Q4H PRN PRN PRN Reason: Pain Score 4-5/10 Last Admin: 05/29/20 19:10 Dose: 5 mg Documented by: Oxycodone HCl (Oxyir) 10 mg PO Q4H PRN PRN PRN Reason: Pain Score 6-10/10 Last Admin: 05/31/20 10:08 Dose: 10 mg Documented by: Polyethylene Glycol (Miralax) 17 gm PO DAILY PRN PRN Reason: Constipation Last Admin: 05/28/20 08:49 Dose: 17 gm Documented by: Potassium Chloride (K-Dur) 20 meq PO BIDCM [facility] Last Admin: 05/31/20 09:01 Dose: 20 meq Documented by: Sodium Chloride () 10 - 40 ml IV UD PRN PRN Reason: SALINE FLUSH Last Admin: 05/30/20 23:15 Dose: 10 ml Documented by: Medical Necessity - Tobacco Use Smoking Status: Former smoker Assessment/Plan All Active Problems Bacteremia (Acute) Left hip displaced intertrochanteric fracture Bacteremia last cultures no growth 48 hours white count continuing to climb the last 4 days Patient scheduled for MAUREEN tomorrow rule out infective endocarditis, if cultures remain no growth and MAUREEN clear proceed to OR Friday currently scheduled 10:30 AM. Continue IV antibiotics
[2020-05-31 20:01] VITALS: BP 108/58; PULSE 68; RESP 16; TEMP 36.9; O2SAT 95
[2020-05-31] MEDS: Atorvastatin Calcium 20 MG Tablet PO (21:29)
[2020-06-01] VITALS (8 sets, daily range): BP systolic 102–133; BP diastolic 54–89; PULSE 60–80; RESP 16–18; TEMP 36.2–37.2; O2SAT 94–98
[2020-06-01 05:46] LABS: Hematocrit 35.3 % (40-54); Mean Corpuscular Hgb 31.4 pg (27.0-32.0); Mean Corpuscular Volume 92.4 fL (80-94); Mean Platelet Vol. 8.2 fl (6.2-12.0); Platelet Count 320 K/mm3 (150-450); RBC Distribution Width CV 12.4 % (11.6-14.6); RBC Distribution Width SD 41.8 fl (35.1-43.9); Red Blood Count 3.82 M/mm3 (4.6-6.2); White Blood Count 14.7 K/mm3 (4.4-11.0)
[2020-06-01] MEDS: Enoxaparin 40 MG/0.4 ML Syringe SC (06:00)
[2020-06-01 06:20] LABS: Anion Gap 6 (5-15); BUN 14 mg/dL (7-18); BUN/Creat Ratio 24.5 RATIO (10-20); Calcium,Total 8.9 mg/dL (8.5-10.1); Chloride 94 mmol/L (98-107); Creatinine, Serum 0.57 mg/dL (0.70-1.30); EST Glomerular Filtration Rate 145 mL/min (>60); Est Glom Filt Rate - Afr Amer 176 mL/min (>60); Estimated Creatinine Clearance 57.93 ml/min; Glucose 116 mg/dL (74-106); Potassium 3.5 mmol/L (3.5-5.1); Sodium Level 130 mmol/L (136-145)
--- NOTE | 2020-06-01 07:51 | PCM.PN.ID ---
Patient Problems: Active and Suspected Problems Bacteremia (Acute) Subjective: Patient is alert overall clinically stable had a relatively uneventful night. No fever. Tolerating ampicillin well. Remains on room air. Objective: Response with puncture clear heart exam S1-S2 abdomen soft nontender. Ribeiro catheter is in place - Physical Exam Vitals/I&O's: Vital Signs Temp Pulse Resp BP Pulse Ox 98.9 F 60 16 123/62 H 94 06/01/20 02:01 06/01/20 02:01 06/01/20 02:01 06/01/20 02:01 06/01/20 02:01 Oxygen Flow Rate (L/min) 1 Oxygen Delivery Method Room Air Weight: 89.403 kg Body Mass Index (BMI) 29.0 Finger Stick Blood Glucose 90 Intake and Output for Last 24 Hours 05/30/20 05/31/20 06/01/20 23:59 23:59 23:59 Intake Total 5258.33 / 5258.33 3245.00 / 3245.00 830 / 830 Output Total 1225 / 1225 1850 / 1850 1100 / 1100 Balance 4033.33 / 4033.33 1395.00 / 1395.00 -270 / -270 Microbiology Past 72 Hours 05/26/20 12:35 Blood Culture (Wb) - Right Wrist Blood Culture - Final 05/28/20 07:40 Blood Culture (Wb) - Left Hand Blood Culture - Preliminary No growth in 48 hours. 05/28/20 07:30 Blood Culture (Wb) - Right Hand Blood Culture - Preliminary No growth in 48 hours. 05/25/20 07:22 Blood Culture (Wb) - Anticubital Right Blood Culture - Final No growth in 5 days. 05/25/20 07:30 Blood Culture (Wb) - Right Hand Blood Culture - Final No growth in 5 days. 05/27/20 06:30 Blood Culture (Wb) - Right Hand Blood Culture - Final Enterococcus casseliflavus (D) 05/24/20 13:56 Blood Culture (Wb) - Right Hand Blood Culture - Final GPC Poss Enterococcus sp 05/24/20 13:56 Blood Culture (Wb) - Left Hand Blood Culture - Final GPC Poss Enterococcus sp 05/23/20 19:25 Blood Culture (Wb) - Right Forearm Blood Culture - Final GPC Poss Enterococcus sp 05/23/20 19:15 Blood Culture (Wb) - Left Wrist Bacteria Detection (PCR) - Final 05/23/20 19:15 Blood Culture (Wb) - Left Wrist Blood Culture - Final Enterococcus casseliflavus (D) Laboratory Results 05/31/20 06:36: Sodium 133 L, Potassium 3.6, Chloride 99, Carbon Dioxide 30.0, Anion Gap 4 L, BUN 12, Creatinine 0.63 L, Estim Creat Clear Calc 57.93, Est GFR (MDRD) Af Amer 158, Est GFR (MDRD) Non-Af 131, BUN/Creatinine Ratio 19.2, Glucose 127 H, Calcium 9.3 06/01/20 05:18: WBC 14.7 H, RBC 3.82 L, Hgb 12.0 L, Hct 35.3 L, MCV 92.4, MCH 31.4, MCHC 34.0 D, RDW Std Deviation 41.8, RDW Coeff of Flora 12.4, Plt Count 320, MPV 8.2 06/01/20 05:18: Sodium 130 L, Potassium 3.5, Chloride 94 L, Carbon Dioxide 30.0, Anion Gap 6, BUN 14, Creatinine 0.57 L, Estim Creat Clear Calc 57.93, Est GFR (MDRD) Af Amer 176, Est GFR (MDRD) Non-Af 145, BUN/Creatinine Ratio 24.5 H, Glucose 116 H, Calcium 8.9 Current Medications Acetaminophen (Tylenol) 1,000 mg PO TID PRN PRN PRN Reason: pain 1-10/fever Last Admin: 05/30/20 23:06 Dose: 1,000 mg Documented by: Al Hydroxide/Mg Hydroxide (Mylanta Ii) 30 ml PO Q4H PRN PRN PRN Reason: HEARTBURN Last Admin: 05/26/20 00:31 Dose: 30 ml Documented by: Atenolol (Tenormin (Beta Sena)) 50 mg PO DAILY [facility] Last Admin: 05/31/20 09:02 Dose: 50 mg Documented by: Atorvastatin Calcium (Lipitor) 20 mg PO QHS [facility] Last Admin: 05/31/20 21:29 Dose: 20 mg Documented by: Chlorthalidone (Hygroton) 25 mg PO DAILY [facility] Last Admin: 05/31/20 09:02 Dose: 25 mg Documented by: Docusate Sodium (Colace) 200 mg PO BID PRN PRN PRN Reason: Constipation Last Admin: 05/25/20 06:47 Dose: 200 mg Documented by: Enoxaparin Sodium (Lovenox) 40 mg SC DAILY@0600 [facility] Last Admin: 06/01/20 06:00 Dose: 40 mg Documented by: Ergocalciferol (Vitamin D) 50,000 unit PO Q7D [facility] Stop: 07/11/20 17:01 Last Admin: 05/30/20 17:31 Dose: 50,000 unit Documented by: Hydromorphone HCl (Dilaudid Inj) 0.5 mg IV Q4H PRN PRN PRN Reason: Pain Score 6-10/10 Ampicillin Sodium 2 gm/ Sodium (Chloride) 100 mls @ 200 mls/hr IV Q6 [facility] Last Infusion: 06/01/20 06:39 Dose: Infused Documented by: Nutritional Formula (Lactose Free) (Ensure Enlive) 120 ml PO 4X/DAY [facility] Last Admin: 05/31/20 21:29 Dose: 120 ml Documented by: Ondansetron HCl (Zofran) 4 mg IV Q8H PRN PRN PRN Reason: NAUSEA/VOMITING Last Admin: 05/30/20 23:12 Dose: 4 mg Documented by: Oxycodone HCl (Oxyir) 5 mg PO Q4H PRN PRN PRN Reason: Pain Score 4-5/10 Last Admin: 05/29/20 19:10 Dose: 5 mg Documented by: Oxycodone HCl (Oxyir) 10 mg PO Q4H PRN PRN PRN Reason: Pain Score 6-10/10 Last Admin: 05/31/20 10:08 Dose: 10 mg Documented by: Polyethylene Glycol (Miralax) 17 gm PO DAILY PRN PRN Reason: Constipation Last Admin: 05/28/20 08:49 Dose: 17 gm Documented by: Potassium Chloride (K-Dur) 20 meq PO BIDCM [facility] Last Admin: 05/31/20 17:35 Dose: 20 meq Documented by: Sodium Chloride () 10 - 40 ml IV UD PRN PRN Reason: SALINE FLUSH Last Admin: 05/30/20 23:15 Dose: 10 ml Documented by: Medical Necessity - Tobacco Use Smoking Status: Former smoker Route of nutrition/ use of supplements: [] Nutritional Intake: [] IV Site: [] Ribeiro Catheter: [] - Assessment/Plan Enterococcal bacteremia in an elderly man, currently on ampicillin with most recent blood cultures remaining sterile. Plan for diagnostic transesophageal echocardiogram today with plans of orthopedic surgery tomorrow
--- NOTE | 2020-06-01 07:51 | PCM.PN.HOSP ---
Patient Problems: Active and Suspected Problems Bacteremia (Acute) Subjective: Pt states that he just wants to sit in a bath and clean up. He is currently lying in stool and aide are coming to clean him up. Denies current pain, n/v. Wants to get hip fixed. Vitals/I&O's: Vital Signs Temp Pulse Resp BP Pulse Ox 98.9 F 60 16 123/62 H 94 06/01/20 02:01 06/01/20 02:01 06/01/20 02:01 06/01/20 02:01 06/01/20 02:01 Oxygen Flow Rate (L/min) 1 Oxygen Delivery Method Room Air Weight: 89.403 kg Body Mass Index (BMI) 29.0 Finger Stick Blood Glucose 90 Intake and Output for Last 24 Hours 05/30/20 05/31/20 06/01/20 23:59 23:59 23:59 Intake Total 5258.33 / 5258.33 3245.00 / 3245.00 830 / 830 Output Total 1225 / 1225 1850 / 1850 1100 / 1100 Balance 4033.33 / 4033.33 1395.00 / 1395.00 -270 / -270 General: Alert, Oriented x3, Cooperative, No apparent distress, Well developed, Well nourished, - - older WM, lying in bed, just stooled in the bed HEENT: Atraumatic, PERRLA, EOMI, Normocephalic, EAC Clear Oral: Moist Mucosa, No Gingival or Mucosal Lesions/ Ulcerations, - - Poor dentition with many rotted teeth Neck: Supple, No JVD, Negative Hepatojugular Reflux, No Nodes, No Nuchal Rigidity, Trachea Midline, Thyroid Normal Size and Texture Lungs: Clear to auscultation, Normal air movement, No rhonchi, No wheeze, No rales Cardiovascular: Regular rate, Regular Rhythm, Normal S1, Normal S2, No murmurs, No Ectopic Activity, No rub noted, No Gallop Abdomen: Bowel Sounds Present, Soft, Non Tender, Non-Distended, Obese Extremities: No clubbing, No cyanosis, No edema, Capillary Refill Less than 3 Seconds, Peripheral Pulses Normal Skin: No rashes, No breakdown Musculoskeletal: No Muscle Wasting, Arthritic Changes, - - L LE shortened and ER Lymphatic: No Cervical, Supraclavicular, or Inguinal Adenopathy Neurological: Cranial nerves II-XII grossly intact, Neuro grossly intact, Muscle tone normal, Coordination normal Psych/Mental Status: Normal Affect, Appropriate, Alert and oriented to time, place, person, mood and affect Microbiology Past 72 Hours 05/26/20 12:35 Blood Culture (Wb) - Right Wrist Blood Culture - Final 05/28/20 07:40 Blood Culture (Wb) - Left Hand Blood Culture - Preliminary No growth in 48 hours. 05/28/20 07:30 Blood Culture (Wb) - Right Hand Blood Culture - Preliminary No growth in 48 hours. 05/25/20 07:22 Blood Culture (Wb) - Anticubital Right Blood Culture - Final No growth in 5 days. 05/25/20 07:30 Blood Culture (Wb) - Right Hand Blood Culture - Final No growth in 5 days. 05/27/20 06:30 Blood Culture (Wb) - Right Hand Blood Culture - Final Enterococcus casseliflavus (D) 05/24/20 13:56 Blood Culture (Wb) - Right Hand Blood Culture - Final GPC Poss Enterococcus sp 05/24/20 13:56 Blood Culture (Wb) - Left Hand Blood Culture - Final GPC Poss Enterococcus sp 05/23/20 19:25 Blood Culture (Wb) - Right Forearm Blood Culture - Final GPC Poss Enterococcus sp 05/23/20 19:15 Blood Culture (Wb) - Left Wrist Bacteria Detection (PCR) - Final 05/23/20 19:15 Blood Culture (Wb) - Left Wrist Blood Culture - Final Enterococcus casseliflavus (D) Laboratory Results 05/31/20 06:36: Sodium 133 L, Potassium 3.6, Chloride 99, Carbon Dioxide 30.0, Anion Gap 4 L, BUN 12, Creatinine 0.63 L, Estim Creat Clear Calc 57.93, Est GFR (MDRD) Af Amer 158, Est GFR (MDRD) Non-Af 131, BUN/Creatinine Ratio 19.2, Glucose 127 H, Calcium 9.3 06/01/20 05:18: WBC 14.7 H, RBC 3.82 L, Hgb 12.0 L, Hct 35.3 L, MCV 92.4, MCH 31.4, MCHC 34.0 D, RDW Std Deviation 41.8, RDW Coeff of Flora 12.4, Plt Count 320, MPV 8.2 06/01/20 05:18: Sodium 130 L, Potassium 3.5, Chloride 94 L, Carbon Dioxide 30.0, Anion Gap 6, BUN 14, Creatinine 0.57 L, Estim Creat Clear Calc 57.93, Est GFR (MDRD) Af Amer 176, Est GFR (MDRD) Non-Af 145, BUN/Creatinine Ratio 24.5 H, Glucose 116 H, Calcium 8.9 Current Medications Acetaminophen (Tylenol) 1,000 mg PO TID PRN PRN PRN Reason: pain 1-10/fever Last Admin: 05/30/20 23:06 Dose: 1,000 mg Documented by: Al Hydroxide/Mg Hydroxide (Mylanta Ii) 30 ml PO Q4H PRN PRN PRN Reason: HEARTBURN Last Admin: 05/26/20 00:31 Dose: 30 ml Documented by: Atenolol (Tenormin (Beta Sena)) 50 mg PO DAILY [facility] Last Admin: 05/31/20 09:02 Dose: 50 mg Documented by: Atorvastatin Calcium (Lipitor) 20 mg PO QHS [facility] Last Admin: 05/31/20 21:29 Dose: 20 mg Documented by: Chlorthalidone (Hygroton) 25 mg PO DAILY [facility] Last Admin: 05/31/20 09:02 Dose: 25 mg Documented by: Docusate Sodium (Colace) 200 mg PO BID PRN PRN PRN Reason: Constipation Last Admin: 05/25/20 06:47 Dose: 200 mg Documented by: Enoxaparin Sodium (Lovenox) 40 mg SC DAILY@0600 [facility] Last Admin: 06/01/20 06:00 Dose: 40 mg Documented by: Ergocalciferol (Vitamin D) 50,000 unit PO Q7D [facility] Stop: 07/11/20 17:01 Last Admin: 05/30/20 17:31 Dose: 50,000 unit Documented by: Hydromorphone HCl (Dilaudid Inj) 0.5 mg IV Q4H PRN PRN PRN Reason: Pain Score 6-10/10 Ampicillin Sodium 2 gm/ Sodium (Chloride) 100 mls @ 200 mls/hr IV Q6 [facility] Last Infusion: 06/01/20 06:39 Dose: Infused Documented by: Nutritional Formula (Lactose Free) (Ensure Enlive) 120 ml PO 4X/DAY [facility] Last Admin: 05/31/20 21:29 Dose: 120 ml Documented by: Ondansetron HCl (Zofran) 4 mg IV Q8H PRN PRN PRN Reason: NAUSEA/VOMITING Last Admin: 05/30/20 23:12 Dose: 4 mg Documented by: Oxycodone HCl (Oxyir) 5 mg PO Q4H PRN PRN PRN Reason: Pain Score 4-5/10 Last Admin: 05/29/20 19:10 Dose: 5 mg Documented by: Oxycodone HCl (Oxyir) 10 mg PO Q4H PRN PRN PRN Reason: Pain Score 6-10/10 Last Admin: 05/31/20 10:08 Dose: 10 mg Documented by: Polyethylene Glycol (Miralax) 17 gm PO DAILY PRN PRN Reason: Constipation Last Admin: 05/28/20 08:49 Dose: 17 gm Documented by: Potassium Chloride (K-Dur) 20 meq PO BIDCM [facility] Last Admin: 05/31/20 17:35 Dose: 20 meq Documented by: Sodium Chloride () 10 - 40 ml IV UD PRN PRN Reason: SALINE FLUSH Last Admin: 05/30/20 23:15 Dose: 10 ml Documented by: Medical Necessity - Tobacco Use Smoking Status: Former smoker Assessment/Plan All Active Problems Bacteremia (Acute) Acute L Intertrochanteric Femoral Neck Comminuted Fracture 2/2 Mechanical Fall -Patient mayelin-op assessment using NSQIP deemed patient to be below average risk for perioperative complications -Ortho following -plan if now for OR on Friday -PRN pain meds and bowel regimen -IS Severe Sepsis 2/2 Enterococcal Bacteremia -amp q 6 hrs per ID -pt seems to be tolerating well -MAUREEN pending for today -Blood cx from 05/28 remain negative -CT abd/Pelvis not revealing any source of infection -? teeth -would recommend getting teeth addressed after acute issues are resolved Leukocytosis -down some today 15.3-->14.7 -ID following -Ortho would like MAUREEN prior to OR to r/o IE with elevation -pending for today Acute Encephalopathy-multifactorial -waxes and wanes -seems to be better in am and deteriorates in afternoon -monitor Mild Hyponatremia -was WNL on admission -d/c Chlorthalidone -d/c IVF -repeat am lab Hypokalemia -resolved will monitor -has daily scheduled K -am BMP Mild Anemia -suspect related to acute illness -no s/o acute blood loss L1 Compression Fractures -treat symptomatically H/O Stroke -ASA HPL/HTN -continue Statin -continue Atenolol -d/c chlorthalidone 2/2 hyponatremia -start Norvasc 5 mg Vitamin D Deficiency -continue replacement DVT prophylaxis -Lovenox BID Code Status -Full Inpatient E&M: 12305 Subs Hosp L3
--- NOTE | 2020-06-01 08:00 | ECHOTEE_ITS ---
Version 2 Reason For Study: Preop Medication MAUREEN probe 6VT-D (SN [id number]) passed without difficulty. No complications were noted. [id number] gargled and swallowed. Versed 2 mg given slow IVP. Left Ventricle Normal LV size. The estimated ejection fraction is 65 %. Mitral Valve There is no mitral valve stenosis. Trivial mitral valve insufficiency. Tricuspid Valve The tricuspid valve is not well visualized. Aortic Valve Trisinus/trileaflet aortic valve. Mild diffuse aortic valve thickening. There is no aortic stenosis. No aortic valve insufficiency. Interpretation Summary The study was technically difficult. The study was technically difficult. The estimated ejection fraction is 65 %. No evidence of endocarditis Ordering Physician: Deny Berman Referring Physician: Jessica Santiago Performed By: Bree Oneill, JENNIFER, RVT
[2020-06-01] MEDS: Atenolol 50 MG Tablet PO (10:27)
[2020-06-01] MEDS: amLODIPine 5 MG Tablet PO (10:29)
[2020-06-01] MEDS: oxyCODONE 5 MG Tablet PO (11:38)
[2020-06-01] MEDS: 0.9% Saline Lock 10 ML Syringe IV (11:38)
--- NOTE | 2020-06-01 13:52 | CASEMGMT ---
Social Work Note WADE updated that pt and pt's are agreeable to [facility]. WADE placed a call to Hazel with [facility]. Hazel states [facility] is able to accept pt Friday. WADE updated RN UBALDO who updated pt and pt's on acceptance to [facility] Friday. 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
--- NOTE | 2020-06-01 13:55 | CASEMGMT ---
JO ANN CONNER in to discuss discharge planning with patient and . , Prema recently had surgery and is unable to assist patient with care. Patient to have surgery for hip fracture Friday. Discussed need for additional therapy after discharge. Patient and agreeable to inpatient rehab unit after discussing options. JO ANN CONNER updated WADE Garcia. Per WADE, patient can go to inpatient rehab unit on Friday. JO ANN CONNER updated patient and called to updated on acceptance to rehab unit.
[2020-06-01] MEDS: Menthol/Lanolin/Calamine/Znox 113 GM Tube 1 APPLIC TOPICAL ×2 (17:12→21:25)
[2020-06-01] MEDS: Atorvastatin Calcium 20 MG Tablet PO (21:25)
[2020-06-02] VITALS (12 sets, daily range): BP systolic 110–148; BP diastolic 70–100; PULSE 66–87; RESP 16–18; TEMP 36.2–37.1; O2SAT 92–98; BMI 29.0; BMI 29.1
[2020-06-02] MEDS: oxyCODONE 5 MG Tablet PO (00:24)
[2020-06-02 06:36] LABS: Anion Gap 5 (5-15); BUN 16 mg/dL (7-18); BUN/Creat Ratio 25.4 RATIO (10-20); Calcium,Total 9.2 mg/dL (8.5-10.1); Chloride 98 mmol/L (98-107); Creatinine, Serum 0.63 mg/dL (0.70-1.30); EST Glomerular Filtration Rate 130 mL/min (>60); Est Glom Filt Rate - Afr Amer 157 mL/min (>60); Estimated Creatinine Clearance 57.93 ml/min; Glucose 120 mg/dL (74-106); Potassium 3.4 mmol/L (3.5-5.1); Sodium Level 133 mmol/L (136-145)
--- NOTE | 2020-06-02 07:24 | PCM.PN.HOSP ---
Patient Problems: Active and Suspected Problems Bacteremia (Acute) Subjective: No issues overnight. Pt c/o thirst this am. Vitals/I&O's: Vital Signs Temp Pulse Resp BP Pulse Ox 97.9 F 66 16 110/92 H 95 06/02/20 03:50 06/02/20 03:50 06/02/20 03:50 06/02/20 03:50 06/02/20 03:50 Oxygen Flow Rate (L/min) 1 Oxygen Delivery Method Room Air Weight: 89.403 kg Body Mass Index (BMI) 29.0 Finger Stick Blood Glucose 90 Intake and Output for Last 24 Hours 05/31/20 06/01/20 06/02/20 23:59 23:59 23:59 Intake Total 3245.00 / 3245.00 1880 / 1880 200 / 200 Output Total 1850 / 1850 1900 / 1900 300 / 300 Balance 1395.00 / 1395.00 -20 / -20 -100 / -100 General: Alert, Oriented x3, Cooperative, No apparent distress, Well developed, Well nourished, - - older WM lying in bed, watching TV, appears younger than stated age HEENT: Atraumatic, PERRLA, EOMI, Normocephalic, EAC Clear Oral: No Gingival or Mucosal Lesions/ Ulcerations, Dry Mucosa, - - poor dentition Neck: Supple Lungs: Clear to auscultation, Normal air movement, No rhonchi, No wheeze, No rales Cardiovascular: Regular rate, Regular Rhythm, Normal S1, Normal S2, No murmurs, No Ectopic Activity, No rub noted, No Gallop Abdomen: Bowel Sounds Present, Soft, Non Tender, Non-Distended, No Hepato-splenomegaly Extremities: No clubbing, No cyanosis, Capillary Refill Less than 3 Seconds, Edema - trace L LE, Peripheral Pulses Normal Musculoskeletal: Tenderness, - - LLE shortened and ER Neurological: Cranial nerves II-XII grossly intact, Neuro grossly intact, - - very CADDO Psych/Mental Status: Normal Affect, Appropriate, Alert and oriented to time, place, person, mood and affect Microbiology Past 72 Hours 05/29/20 16:10 Blood Culture (Wb) - Right Hand Blood Culture - Preliminary No growth in 48 hours. 05/29/20 16:00 Blood Culture (Wb) - Right Wrist Blood Culture - Preliminary No growth in 48 hours. 05/26/20 12:35 Blood Culture (Wb) - Right Wrist Blood Culture - Final 05/28/20 07:40 Blood Culture (Wb) - Left Hand Blood Culture - Preliminary No growth in 48 hours. 05/28/20 07:30 Blood Culture (Wb) - Right Hand Blood Culture - Preliminary No growth in 48 hours. 05/25/20 07:22 Blood Culture (Wb) - Anticubital Right Blood Culture - Final No growth in 5 days. 05/25/20 07:30 Blood Culture (Wb) - Right Hand Blood Culture - Final No growth in 5 days. 05/27/20 06:30 Blood Culture (Wb) - Right Hand Blood Culture - Final Enterococcus casseliflavus (D) 05/24/20 13:56 Blood Culture (Wb) - Right Hand Blood Culture - Final GPC Poss Enterococcus sp 05/24/20 13:56 Blood Culture (Wb) - Left Hand Blood Culture - Final GPC Poss Enterococcus sp Laboratory Results 06/02/20 05:19: Sodium 133 L, Potassium 3.4 L, Chloride 98, Carbon Dioxide 30.0, Anion Gap 5, BUN 16, Creatinine 0.63 L, Estim Creat Clear Calc 57.93, Est GFR (MDRD) Af Amer 157, Est GFR (MDRD) Non-Af 130, BUN/Creatinine Ratio 25.4 H, Glucose 120 H, Calcium 9.2 06/02/20 05:19: Blood Type A POSITIVE, Antibody Screen NEGATIVE Current Medications Acetaminophen (Tylenol) 1,000 mg PO TID PRN PRN PRN Reason: pain 1-10/fever Last Admin: 05/30/20 23:06 Dose: 1,000 mg Documented by: Al Hydroxide/Mg Hydroxide (Mylanta Ii) 30 ml PO Q4H PRN PRN PRN Reason: HEARTBURN Last Admin: 05/26/20 00:31 Dose: 30 ml Documented by: Amlodipine Besylate (Norvasc) 5 mg PO DAILY [facility] Last Admin: 06/01/20 10:29 Dose: 5 mg Documented by: Atenolol (Tenormin (Beta Sena)) 50 mg PO DAILY [facility] Last Admin: 06/01/20 10:27 Dose: 50 mg Documented by: Atorvastatin Calcium (Lipitor) 20 mg PO QHS [facility] Last Admin: 08/27/20 21:25 Dose: 20 mg Documented by: Calamine/Phenol (Calmoseptine Ointment) 1 applic TOPICAL 4X/DAY [facility]; Protocol Last Admin: 06/01/20 21:25 Dose: 1 applic Documented by: Docusate Sodium (Colace) 200 mg PO BID PRN PRN PRN Reason: Constipation Last Admin: 05/25/20 06:47 Dose: 200 mg Documented by: Enoxaparin Sodium (Lovenox) 40 mg SC BID [facility] Ergocalciferol (Vitamin D) 50,000 unit PO Q7D [facility] Stop: 07/11/20 17:01 Last Admin: 05/30/20 17:31 Dose: 50,000 unit Documented by: Hydromorphone HCl (Dilaudid Inj) 0.5 mg IV Q4H PRN PRN PRN Reason: Pain Score 6-10/10 Ampicillin Sodium 2 gm/ Sodium (Chloride) 100 mls @ 200 mls/hr IV Q6 [facility] Last Infusion: 06/02/20 06:12 Dose: Infused Documented by: Nutritional Formula (Lactose Free) (Ensure Enlive) 120 ml PO 4X/DAY [facility] Last Admin: 06/01/20 21:25 Dose: 120 ml Documented by: Ondansetron HCl (Zofran) 4 mg IV Q8H PRN PRN PRN Reason: NAUSEA/VOMITING Last Admin: 05/30/20 23:12 Dose: 4 mg Documented by: Oxycodone HCl (Oxyir) 5 mg PO Q4H PRN PRN PRN Reason: Pain Score 4-5/10 Last Admin: 06/02/20 00:24 Dose: 5 mg Documented by: Oxycodone HCl (Oxyir) 10 mg PO Q4H PRN PRN PRN Reason: Pain Score 6-10/10 Last Admin: 05/31/20 10:08 Dose: 10 mg Documented by: Polyethylene Glycol (Miralax) 17 gm PO DAILY PRN PRN Reason: Constipation Last Admin: 05/28/20 08:49 Dose: 17 gm Documented by: [facility] Last Admin: 06/01/20 17:13 Dose: 20 meq Documented by: Sodium Chloride () 10 - 40 ml IV UD PRN PRN Reason: SALINE FLUSH Last Admin: 06/01/20 11:38 Dose: 10 ml Documented by: STROKE Vital Signs/Narrative: Vital Signs Temp Pulse Resp BP Pulse Ox 06/02/20 03:50 97.9 F 66 16 110/92 H 95 Medical Necessity - Tobacco Use Smoking Status: Former smoker Assessment/Plan All Active Problems Bacteremia (Acute) Acute L Intertrochanteric Femoral Neck Comminuted Fracture 2/2 Mechanical Fall -Patient mayelin-op assessment using NSQIP deemed patient to be below average risk for perioperative complications -Ortho following -OR today at 1030 -LR at 75 cc/hr until 1800 today -PRN pain meds and bowel regimen -IS Severe Sepsis 2/2 Enterococcal Bacteremia -continue amp q 6 hrs per ID--> will need to define length of treatment with ID and have ? PICC placement depending on plan -MAUREEN negative for valvular vegetations -Blood cx from 05/28 and 05/29 with NGTD -CT abd/Pelvis not revealing any source of infection -? teeth -would recommend getting teeth addressed after acute issues are resolved Leukocytosis -CBC pending this am -ID following -MAUREEN and CT A/P neg for infectious source Acute Encephalopathy-multifactorial -waxes and wanes -seems to be better in am and deteriorates in afternoon -monitor Mild Hyponatremia -was WNL on admission -Na is improving 130 -133 today -will run LR for now until after OR Hypokalemia -down a bit today to 3.4 will bolus 40 mEq IV since pt npo now and repeat in am -repeat Mag in am Mild Anemia -suspect related to acute illness -no s/o acute blood loss L1 Compression Fractures -treat symptomatically H/O Stroke -ASA HPL/HTN -continue Statin -continue Atenolol -Norvasc 5 mg Vitamin D Deficiency -continue replacement DVT prophylaxis -Lovenox BID Code Status -Full Dispo -OR today and will need likely rehab at D/C Inpatient E&M: 89939 Subs Hosp L2
[2020-06-02] MEDS: Potassium Chloride 10mEq/100mL 10 MEQ/100 ML IV.SOLN. 100 MEQ IV BOLUS ×4 (08:54→13:56)
--- NOTE | 2020-06-02 10:30 | RAD_ITS ---
STUDY: X-RAY - PELVIS AND LEFT HIP REASON FOR EXAM: Male, 80 years old. Left trochanteric fixation nail. TECHNIQUE: 3 intraoperative views of the pelvis and hip. COMPARISON: None. FINDINGS: Intraoperative imaging provided for open junction and into the fixation of the left intertrochanteric fracture utilizing intramedullary kade fixation and compression screw device. There is good alignment. RAD/HIP, UNI W/ Pelvis 2-3 Views IMPRESSION: Intraoperative imaging provided for ORIF of the left intertrochanteric fracture. There is good alignment. Electronically Signed: Winston Santos, at 12:41 EDT , Service support ,
[2020-06-02] MEDS: Bupiv/Epi 0.5% Mpf 30 ML Vial (11:54)
--- NOTE | 2020-06-02 12:14 | PCM.OPRPT ---
Report of Operation Date of Procedure: 06/02/20 Description of Surgical Findings:: Preoperative diagnosis: Left hip intertrochanteric femur fracture Postoperative diagnosis: Same Procedure: Cephalo-medullary fixation left hip Implants: Synthes short nail 125 deg 12 mm diameter 105 mm helical blade 40 mm screw Anesthesia: General EBL: 20 Complications: None Condition: Stable to PACU Indication for procedure: 80-year-old male patient with ground-level fall sustaining injury to hip. Patient surgery was delayed secondary to bacteremia of unknown origin after thorough work-up and 2 consecutive days of negative blood cultures and negative MAUREEN was determined to be appropriate optimal timing for surgery. fracture demonstrated comminuted displaced intertrochanteric femur fracture pattern. Risk benefits and alternatives were reviewed including risk of bleeding infection nerve, artery, bone, tissue damage, blood clot need for further surgery and continued pain. Procedure: Patient met in the preoperative holding area once again the operative extremity was identified by both patient and physician and was marked. Patient was met by anesthesia and IV was started . patient was brought back to the to the operating room anesthesia was started. Patient was then positioned on the fracture table all bony prominences were well-padded. patient was then positioned with abduction internal rotation and traction and fluoroscopy was brought in to ensure that an adequate reduction could be performed. Patient was then prepped and draped in usual sterile fashion and timeout was called to ensure the proper patient procedure and extremity were being contemplated. Fluoroscopy was used to mikey the tip of the greater trochanter and a 3 fingerbreadth incision was made 2 finger breaths proximal to the tip of the greater trochanter. Was carried carried down through the skin and subcutaneous tissue as well as the gluteal fascia. Guidepin was then inserted through the tip of the greater trochanter directed towards the level of lesser trochanter this was checked in both AP and lateral projections. An opening reamer was performed. Following this was the insertion of the nail the appropriate height jig was used and a triple trocar sleeve was advanced to the skin and a stab incision was made at the trocar was inserted to the level of the bone and a guidepin was placed into the femoral neck and head checked on both AP and lateral projections. This was then measured and appropriately sized helical blade was inserted the nail was locked proximally the fracture was compressed and a locking screw was placed distally the same incision was extended slightly distally to allow the insertion of the trocar for the transverse screw. This was then drilled and measured under fluoroscopy and the appropriate size screw was inserted. Final AP and lateral projections were saved to the PACS system of the entire construct the wounds were thoroughly irrigated the fascia was closed with #1 [id number] Vicryls followed by 2-0 Vicryl in the subcutaneous tissues followed by pippa in the skin. 0.5% Marcaine with epinephrine was injected into the subcutaneous tissues dressing was applied form of Xeroform 4 x 4 ABD and Ioban tape. Patient tolerated procedure well there is no intraoperative complications and was brought back to the PACU in stable condition. TFN
--- NOTE | 2020-06-02 12:15 | PCM.PN.ORT ---
Patient Problems: Active and Suspected Problems Bacteremia (Acute) Subjective: Postop in PACU patient doing okay - Physical Exam Vitals/I&O's: Vital Signs Temp Pulse Resp BP Pulse Ox 98.0 F 71 18 118/70 94 06/02/20 09:03 06/02/20 09:03 06/02/20 09:03 06/02/20 09:03 06/02/20 09:03 Oxygen Flow Rate (L/min) 1 Oxygen Delivery Method Room Air Weight: 197 lb 1.598 oz Body Mass Index (BMI) 29.0 Finger Stick Blood Glucose 90 Intake and Output for Last 24 Hours 05/31/20 06/01/20 06/02/20 23:59 23:59 23:59 Intake Total 3245.00 / 3245.00 1880 / 1880 300 / 300 Output Total 1850 / 1850 1900 / 1900 300 / 300 Balance 1395.00 / 1395.00 -20 / -20 0 / 0 General: No apparent distress Extremities: - - Palpable pedal pulses dressings clean dry and intact compartments soft Microbiology Past 72 Hours 05/28/20 07:40 Blood Culture (Wb) - Left Hand Blood Culture - Final No growth in 5 days. 05/28/20 07:30 Blood Culture (Wb) - Right Hand Blood Culture - Final No growth in 5 days. 05/29/20 16:10 Blood Culture (Wb) - Right Hand Blood Culture - Preliminary No growth in 48 hours. 05/29/20 16:00 Blood Culture (Wb) - Right Wrist Blood Culture - Preliminary No growth in 48 hours. 05/26/20 12:35 Blood Culture (Wb) - Right Wrist Blood Culture - Final Laboratory Results 06/02/20 05:19: Sodium 133 L, Potassium 3.4 L, Chloride 98, Carbon Dioxide 30.0, Anion Gap 5, BUN 16, Creatinine 0.63 L, Estim Creat Clear Calc 57.93, Est GFR (MDRD) Af Amer 157, Est GFR (MDRD) Non-Af 130, BUN/Creatinine Ratio 25.4 H, Glucose 120 H, Calcium 9.2 06/02/20 05:19: Blood Type A POSITIVE, Antibody Screen NEGATIVE Current Medications Acetaminophen (Tylenol) 1,000 mg PO TID PRN PRN PRN Reason: pain 1-10/fever Last Admin: 05/30/20 23:06 Dose: 1,000 mg Documented by: Acetaminophen (Tylenol) 1,000 mg PO Q8 [facility] Al Hydroxide/Mg Hydroxide (Mylanta Ii) 30 ml PO Q4H PRN PRN PRN Reason: HEARTBURN Last Admin: 05/26/20 00:31 Dose: 30 ml Documented by: Amlodipine Besylate (Norvasc) 5 mg PO DAILY [facility] Last Admin: 06/01/20 10:29 Dose: 5 mg Documented by: Atenolol (Tenormin (Beta Sena)) 50 mg PO DAILY [facility] Last Admin: 06/01/20 10:27 Dose: 50 mg Documented by: Atorvastatin Calcium (Lipitor) 20 mg PO QHS [facility] Last Admin: 06/01/20 21:25 Dose: 20 mg Documented by: Calamine/Phenol (Calmoseptine Ointment) 1 applic TOPICAL 4X/DAY [facility]; Protocol Last Admin: 06/02/20 09:17 Dose: Not Given Documented by: Docusate Sodium (Colace) 200 mg PO BID PRN PRN PRN Reason: Constipation Last Admin: 05/25/20 06:47 Dose: 200 mg Documented by: Enoxaparin Sodium (Lovenox) 40 mg SC BID [facility] Enoxaparin Sodium (Lovenox) 40 mg SC DAILY@0600 [facility] Ergocalciferol (Vitamin D) 50,000 unit PO Q7D [facility] Stop: 07/11/20 17:01 Last Admin: 05/30/20 17:31 Dose: 50,000 unit Documented by: Hydromorphone HCl (Dilaudid Inj) 0.5 mg IV Q4H PRN PRN PRN Reason: Pain Score 6-10/10 Ampicillin Sodium 2 gm/ Sodium (Chloride) 100 mls @ 200 mls/hr IV Q6 [facility] Last Infusion: 06/02/20 06:12 Dose: Infused Documented by: Lactated Ringer's () 1,000 mls @ 75 mls/hr IV .[id number] [facility] Stop: 06/02/20 18:00 Nutritional Formula (Lactose Free) (Ensure Enlive) 120 ml PO 4X/DAY [facility] Last Admin: 06/02/20 09:17 Dose: Not Given Documented by: Ondansetron HCl (Zofran) 4 mg IV Q8H PRN PRN PRN Reason: NAUSEA/VOMITING Last Admin: 05/30/20 23:12 Dose: 4 mg Documented by: Oxycodone HCl (Oxyir) 5 mg PO Q4H PRN PRN PRN Reason: Pain Score 4-5/10 Last Admin: 06/02/20 00:24 Dose: 5 mg Documented by: Oxycodone HCl (Oxyir) 10 mg PO Q4H PRN PRN PRN Reason: Pain Score 6-10/10 Last Admin: 05/31/20 10:08 Dose: 10 mg Documented by: Polyethylene Glycol (Miralax) 17 gm PO DAILY PRN PRN Reason: Constipation Last Admin: 05/28/20 08:49 Dose: 17 gm Documented by: Potassium Chloride (K-Dur) 20 meq PO BIDCM [facility] Last Admin: 06/02/20 08:54 Dose: Not Given Documented by: Senna/Docusate Sodium (Senokot-S, Anum-Colace) 2 tablet PO BID [facility] Sodium Chloride () 10 - 40 ml IV UD PRN PRN Reason: SALINE FLUSH Last Admin: 06/01/20 11:38 Dose: 10 ml Documented by: Medical Necessity - Tobacco Use Smoking Status: Former smoker Assessment/Plan All Active Problems Bacteremia (Acute) Status post left hip TFN without intraoperative complication Patient to resume Lovenox 40 mg subcu daily beginning 06/03/2020 30 30 days postop Dressing to be left on 72 hours postoperatively then should be removed and cleaned with antibacterial soap and shower daily PT OT weightbearing as tolerated left lower extremity Patient is to continue IV antibiotics per infectious disease recommendations Patient to have pippa removed 2 weeks postop and follow-up in office after discharge from [facility] facility
[2020-06-02] MEDS: Lactated Ringers 1,000 ML 75 ML IV (13:52)
[2020-06-02] MEDS: Menthol/Lanolin/Calamine/Znox 113 GM Tube 1 APPLIC TOPICAL ×3 (14:12→22:02)
[2020-06-02] MEDS: Acetaminophen 500 MG Tablet 1000 MG PO ×2 (14:14→22:02)
[2020-06-02] MEDS: HYDROmorphone 0.5 MG/0.5 ML SYRINGE IV (19:53)
[2020-06-02] MEDS: Atorvastatin Calcium 20 MG Tablet PO (22:01)
[2020-06-03 00:34] VITALS: BP 122/69; PULSE 66; RESP 16; TEMP 36.8; O2SAT 95
[2020-06-03 00:40] VITALS: BMI 29.1
[2020-06-03 04:34] VITALS: BP 126/76; PULSE 71; RESP 18; TEMP 36.8; O2SAT 93
[2020-06-03 04:54] VITALS: BMI 29.1
[2020-06-03] MEDS: 0.9% Saline Lock 10 ML Syringe IV ×2 (06:27→12:57)
[2020-06-03] MEDS: Acetaminophen 500 MG Tablet 1000 MG PO ×3 (06:28→21:36)
[2020-06-03] MEDS: Enoxaparin 40 MG/0.4 ML Syringe SC (06:28)
[2020-06-03 07:44] LABS: Absolute Lymphocyte Count 1.39 X10^3/uL (0.83-4.51); Basophil# 0.05 X10^3/uL; Basophil% 0.2 % (0-1); Eosinophil# 0.02 X10^3/uL; Eosinophils% 0.1 % (0-5); Hematocrit 36.3 % (40-54); Hemoglobin 11.9 g/dL (13.0-16.5); Lymphocyte # 1.39 X10^3/ul (4.0); Lymphocyte % 6.7 % (19-41); Mean Corp Hgb Conc 32.8 g/dL (32-36); Mean Corpuscular Hgb 30.7 pg (27.0-32.0); Mean Corpuscular Volume 93.8 fL (80-94); Mean Platelet Vol. 7.8 fl (6.2-12.0); Monocyte# 1.29 X10^3/uL; Monocyte% 6.2 % (0-10); NRBC Flagged by Analyzer 0 % (0-5); Neutrophil # 17.99 X10^3/uL (2.7-7.7); Platelet Count 407 K/mm3 (150-450); RBC Distribution Width CV 12.6 % (11.6-14.6); RBC Distribution Width SD 43.1 fl (35.1-43.9); Red Blood Count 3.87 M/mm3 (4.6-6.2); White Blood Count 20.9 K/mm3 (4.4-11.0)
[2020-06-03 07:54] LABS: Anion Gap 3 (5-15); BUN 15 mg/dL (7-18); BUN/Creat Ratio 22.1 RATIO (10-20); Calcium,Total 9.1 mg/dL (8.5-10.1); Chloride 101 mmol/L (98-107); Creatinine, Serum 0.68 mg/dL (0.70-1.30); EST Glomerular Filtration Rate 119 mL/min (>60); Est Glom Filt Rate - Afr Amer 144 mL/min (>60); Estimated Creatinine Clearance 57.93 ml/min; Glucose 164 mg/dL (74-106); Potassium 4.5 mmol/L (3.5-5.1); Sodium Level 134 mmol/L (136-145)
[2020-06-03 08:00] VITALS: RESP 18
--- NOTE | 2020-06-03 08:09 | PCM.PN.HOSP ---
Patient Problems: Active and Suspected Problems Bacteremia (Acute) Subjective: Pt is lying in bed. Appears comfortable and states that his pain is controlled. Discussed need for PICC and further ABX and told him i would come back later when is her to discuss with her as well. Vitals/I&O's: Vital Signs Temp Pulse Resp BP Pulse Ox 98.2 F 71 18 126/76 H 93 06/03/20 04:34 06/03/20 04:34 06/03/20 04:34 06/03/20 04:34 06/03/20 04:34 Oxygen Flow Rate (L/min) 2 Oxygen Delivery Method Room Air Weight: 89.403 kg Body Mass Index (BMI) 29.0 Finger Stick Blood Glucose 90 Intake and Output for Last 24 Hours 06/01/20 06/02/20 06/03/20 23:59 23:59 23:59 Intake Total 1880 / 1880 1581.25 / 1581.25 875.5 / 875.5 Output Total 1900 / 1900 900 / 900 875 / 875 Balance - / 20 681.25 / 681.25 0.5 / 0.5 General: Alert, Oriented x3, Cooperative, No apparent distress, Well developed, Well nourished Lungs: Clear to auscultation, Normal air movement, No rhonchi, No wheeze, No rales Cardiovascular: Regular rate, Regular Rhythm, Normal S1, Normal S2, No murmurs, No Ectopic Activity, No rub noted, No Gallop Abdomen: Bowel Sounds Present, Soft, Non Tender, Non-Distended, No Hepato-splenomegaly, Obese, No hernias noted Extremities: No clubbing, No cyanosis, No edema, Capillary Refill Less than 3 Seconds, Peripheral Pulses Normal Skin: No rashes, No breakdown Musculoskeletal: Arthritic Changes, Muscle Wasting - LLE, Tenderness - L Hip, - - Polar Ice over surgical site Neurological: Cranial nerves II-XII grossly intact, Neuro grossly intact Psych/Mental Status: Normal Affect, Appropriate, Alert and oriented to time, place, person, mood and affect Microbiology Past 72 Hours 05/28/20 07:40 Blood Culture (Wb) - Left Hand Blood Culture - Final No growth in 5 days. 05/28/20 07:30 Blood Culture (Wb) - Right Hand Blood Culture - Final No growth in 5 days. 05/29/20 16:10 Blood Culture (Wb) - Right Hand Blood Culture - Preliminary No growth in 48 hours. 05/29/20 16:00 Blood Culture (Wb) - Right Wrist Blood Culture - Preliminary No growth in 48 hours. 05/26/20 12:35 Blood Culture (Wb) - Right Wrist Blood Culture - Final Laboratory Results 06/03/20 07:22: Sodium 134 L, Potassium 4.5, Chloride 101, Carbon Dioxide 30.0, Anion Gap 3 L, BUN 15, Creatinine 0.68 L, Estim Creat Clear Calc 57.93, Est GFR (MDRD) Af Amer 144, Est GFR (MDRD) Non-Af 119, BUN/Creatinine Ratio 22.1 H, Glucose 164 H, Calcium 9.1, Magnesium 2.0 06/03/20 07:22: WBC 20.9 H, RBC 3.87 L, Hgb 11.9 L, Hct 36.3 L, MCV 93.8, MCH 30.7, MCHC 32.8, RDW Std Deviation 43.1, RDW Coeff of Flora 12.6, Plt Count 407, MPV 7.8, Immature Gran % (Auto) 0.800, Neut % (Auto) 86.0 H, Lymph % (Auto) 6.7 L, Burt % (Auto) 6.2, Eos % (Auto) 0.1, Baso % (Auto) 0.2, Absolute Neuts (auto) 18.0 H, Absolute Lymphs (auto) 1.39, Nucleated RBC % 0 Current Medications Acetaminophen (Tylenol) 1,000 mg PO Q8 [facility] Last Admin: 06/03/20 06:28 Dose: 1,000 mg Documented by: Al Hydroxide/Mg Hydroxide (Mylanta Ii) 30 ml PO Q4H PRN PRN PRN Reason: HEARTBURN Last Admin: 05/26/20 00:31 Dose: 30 ml Documented by: Amlodipine Besylate (Norvasc) 5 mg PO DAILY [facility] Last Admin: 06/02/20 18:09 Dose: Not Given Documented by: Atenolol (Tenormin (Beta Sena)) 50 mg PO DAILY [facility] Last Admin: 06/02/20 18:09 Dose: Not Given Documented by: Atorvastatin Calcium (Lipitor) 20 mg PO QHS [facility] Last Admin: 06/02/20 22:01 Dose: 20 mg Documented by: Calamine/Phenol (Calmoseptine Ointment) 1 applic TOPICAL 4X/DAY [facility]; Protocol Last Admin: 06/02/20 22:02 Dose: 1 applic Documented by: Docusate Sodium (Colace) 200 mg PO BID PRN PRN PRN Reason: Constipation Last Admin: 05/25/20 06:47 Dose: 200 mg Documented by: Enoxaparin Sodium (Lovenox) 40 mg SC DAILY@0600 [facility] Last Admin: 06/03/20 06:28 Dose: 40 mg Documented by: Ergocalciferol (Vitamin D) 50,000 unit PO Q7D [facility] Stop: 07/11/20 17:01 Last Admin: 05/30/20 17:31 Dose: 50,000 unit Documented by: Hydromorphone HCl (Dilaudid Inj) 0.5 mg IV Q4H PRN PRN PRN Reason: Pain Score 6-10/10 Last Admin: 06/02/20 19:53 Dose: 0.5 mg Documented by: Ampicillin Sodium 2 gm/ Sodium (Chloride) 100 mls @ 200 mls/hr IV Q6 [facility] Last Infusion: 06/03/20 06:58 Dose: Infused Documented by: Sodium Chloride () 250 mls @ 15 mls/hr IV .[id number] PRN PRN Reason: Saline Flush Sodium Chloride () 250 mls @ 15 mls/hr IV .[id number] PRN PRN Reason: Additional IVPB Infusion Nutritional Formula (Lactose Free) (Ensure Enlive) 120 ml PO 4X/DAY [facility] Last Admin: 06/02/20 22:02 Dose: Not Given Documented by: Ondansetron HCl (Zofran) 4 mg IV Q8H PRN PRN PRN Reason: NAUSEA/VOMITING Last Admin: 05/30/20 23:12 Dose: 4 mg Documented by: Oxycodone HCl (Oxyir) 5 mg PO Q4H PRN PRN PRN Reason: Pain Score 4-5/10 Last Admin: 06/02/20 00:24 Dose: 5 mg Documented by: Oxycodone HCl (Oxyir) 10 mg PO Q4H PRN PRN PRN Reason: Pain Score 6-10/10 Last Admin: 05/31/20 10:08 Dose: 10 mg Documented by: Polyethylene Glycol (Miralax) 17 gm PO DAILY PRN PRN Reason: Constipation Last Admin: 05/28/20 08:49 Dose: 17 gm Documented by: Potassium Chloride (K-Dur) 20 meq PO BIDCM [facility] Last Admin: 06/02/20 17:51 Dose: 20 meq Documented by: Senna/Docusate Sodium (Senokot-S, Anum-Colace) 2 tablet PO BID [facility] Last Admin: 06/02/20 22:09 Dose: Not Given Documented by: Sodium Chloride () 10 - 40 ml IV UD PRN PRN Reason: SALINE FLUSH Last Admin: 06/03/20 06:27 Dose: 20 ml Documented by: STROKE Vital Signs/Narrative: Vital Signs Temp Pulse Resp BP Pulse Ox 06/03/20 04:34 98.2 F 71 18 126/76 H 93 Medical Necessity - Tobacco Use Smoking Status: Former smoker Assessment/Plan All Active Problems Bacteremia (Acute) Acute L Intertrochanteric Femoral Neck Comminuted Fracture 2/2 Mechanical Fall -POD 1 Cephalo-medullary fixation left hip -WBAT -subq lovenox x 30 days postop (07/03) -remove dressing in 72 hrs post op (06/05) -pippa removed 14 days post op (06/16) -f/u with ortho as outpt after d/c from Rehab -OOB -Patient anum-op assessment using NSQIP deemed patient to be below average risk for perioperative complications -d/c IVF -PRN pain meds and bowel regimen -IS Severe Sepsis 2/2 Enterococcal Bacteremia -continue amp q 6 hrs per ID--> will need until 06/12 per d/w with Dr. Boateng -will have PICC placed after d/w today -MAUREEN negative for valvular vegetations -Blood cx from 05/28 and 05/29 with NGTD -CT abd/Pelvis not revealing any source of infection -? teeth -would recommend getting teeth addressed after acute issues are resolved Leukocytosis -up today but suspect reactive postoperatively -repeat in am -ID following -MAUREEN and CT A/P neg for infectious source Acute Encephalopathy-multifactorial -resolved -pt [place] and this contributes to him clinically appearing confused Mild Hyponatremia -was WNL on admission -Na is improving 134 today -repeat in am Hypokalemia -resolved Mild Anemia -suspect related to acute illness -no s/o acute blood loss -stable L1 Compression Fractures -treat symptomatically H/O Stroke -ASA HPL/HTN -continue Statin -continue Atenolol -Norvasc 5 mg -BP are stable with change of medications from Chlorthalidone to Norvasc Vitamin D Deficiency -continue replacement DVT prophylaxis -Lovenox BID Code Status -Full Dispo -Rehab tomorrow if medically stable -PICC today if agreeable -ABX until 06/12/2020 per ID Inpatient E&M: 04777 Subs Hosp L2
[2020-06-03 08:40] VITALS: BP 126/76; PULSE 66; RESP 18; TEMP 36.2; O2SAT 94
[2020-06-03 09:47] VITALS: BMI 29.1
[2020-06-03] MEDS: oxyCODONE 5 MG Tablet PO ×2 (10:41→18:58)
[2020-06-03] MEDS: amLODIPine 5 MG Tablet PO (10:41)
[2020-06-03] MEDS: Menthol/Lanolin/Calamine/Znox 113 GM Tube 1 APPLIC TOPICAL ×4 (10:43→21:37)
[2020-06-03] MEDS: Atenolol 50 MG Tablet PO (10:45)
[2020-06-03] MEDS: HYDROmorphone 0.5 MG/0.5 ML SYRINGE IV (12:56)
[2020-06-03 13:47] VITALS: BMI 29.1
[2020-06-03 15:13] VITALS: BP 102/58; PULSE 58; RESP 18; TEMP 37.2; O2SAT 98
[2020-06-03 17:47] VITALS: BMI 29.1
[2020-06-03 21:30] VITALS: BP 122/67; PULSE 58; RESP 18; TEMP 36.5; O2SAT 95
[2020-06-03] MEDS: Atorvastatin Calcium 20 MG Tablet PO (21:36)
[2020-06-03] MEDS: Senna/Docusate Sodium 1 Tablet 2 TABLET PO (21:36)
[2020-06-04 02:05] VITALS: BP 117/61; PULSE 55; RESP 18; TEMP 36.6; O2SAT 95
[2020-06-04] MEDS: Enoxaparin 40 MG/0.4 ML Syringe SC (06:04)
[2020-06-04] MEDS: 0.9% Saline Lock 10 ML Syringe IV (06:05)
[2020-06-04] MEDS: Acetaminophen 500 MG Tablet 1000 MG PO ×2 (06:05→13:19)
[2020-06-04 06:14] LABS: Anion Gap 4 (5-15); BUN 15 mg/dL (7-18); BUN/Creat Ratio 25.9 RATIO (10-20); Calcium,Total 8.8 mg/dL (8.5-10.1); Chloride 102 mmol/L (98-107); Creatinine, Serum 0.58 mg/dL (0.70-1.30); EST Glomerular Filtration Rate 143 mL/min (>60); Est Glom Filt Rate - Afr Amer 173 mL/min (>60); Estimated Creatinine Clearance 57.93 ml/min; Glucose 107 mg/dL (74-106); Potassium 3.6 mmol/L (3.5-5.1); Sodium Level 138 mmol/L (136-145)
[2020-06-04 08:05] VITALS: BP 124/74; PULSE 58; RESP 18; TEMP 37; O2SAT 98
--- NOTE | 2020-06-04 09:07 | DCINST_ITS ---
- Discharge Diagnoses Current Active Problems: Current Active and Chronic Problems Bacteremia (Acute) You will use the following diet at home:: Cardiac Your food should be the consistency of: Regular Discharge Activity: May Not Drive, May Not Shower - until 06/06, Use Walker Weight Bearing Status: Weight bearing as tolerated Keep extremity elevated above heart level: Left Leg Call your doctor if your incision/area has: Continuous Slow Oozing, Sudden Increased Bleeding, Increased Pain/ Swelling, Increased Redness, Swelling at the incision site Call your doctor if you observe: Fever of 101 or Higher Cleanse incision/area with: Soap & Water Allergies/Adverse Reactions: Allergies Penicillins Allergy (Verified 05/23/20 11:35) Hives adhesive tape Adverse Reaction (Verified 05/23/20 11:35) Other [place] blisters fentanyl Adverse Reaction (Verified 05/28/20 09:55) PT UNSURE OF REACTION morphine Adverse Reaction (Verified 05/28/20 09:55) PT UNSURE OF REACTION Medications to take at Discharge Aspirin [Aspir 81] 81 mg PO DAILY 11/13/18 Clopidogrel Bisulfate [Clopidogrel] 75 mg PO DAILY 05/23/20 Simvastatin 40 mg PO QHS 05/23/20 Acetaminophen [Tylenol] 1,000 mg PO Q8 tablet 06/04/20 Amlodipine [Norvasc] 5 mg PO DAILY tablet 06/04/20 Ampicillin [Omnipen-N] 2 gm IV Q6 8 Days vial 06/04/20 Atenolol [Tenormin (beta debi)] 50 mg PO DAILY tablet 06/04/20 Docusate Sodium [Colace] 200 mg PO BID PRN PRN capsule 06/04/20 Enoxaparin [Lovenox] 40 mg SC DAILY@0600 30 Days syringe 06/04/20 Ensure Enlive 120 ml PO 4X/DAY liquid 06/04/20 Ergocalciferol [Vitamin D] 50,000 unit PO Q7D capsule 06/04/20 Mag Hydrox/Al Hydrox/Simeth [Mylanta II] 30 ml PO Q4H PRN PRN udc 06/04/20 Menthol/Lanolin/Calamine/Znox [Calmoseptine Ointment] 1 applic TOPICAL 4X/DAY tube 06/04/20 Polyethylene Glycol 3350 [Miralax] 17 gm PO DAILY PRN packet 06/04/20 Senna/Docusate Sodium [Senokot-S] 2 tablet PO BID tablet 06/04/20 Primary Care Physician: Jessica Santiago DO [Primary Care Provider] - Please follow up with your Primary Care Physician in: 1-2 weeks after d/c from Rehab Test Results: Test results from this visit will be discussed in further detail at your follow- up appointment, if applicable. Please Follow Up With: Deny Berman DO When: after d/c from Rehab
--- NOTE | 2020-06-04 09:10 | PCM.DC.SUM ---
Discharge Date and Diagnosis - Problem List Patient Problems: Active and Suspected Problems Bacteremia (Acute) Date of Admission: 05/23/20 Date of Discharge: 06/04/20 - Primary Discharge Diagnosis Acute Problems: Active Problems Bacteremia (Acute) - Secondary Discharge Diagnosis Chronic Problems: Chronic Problems Acute stroke (Chronic) HTN (hypertension) (Chronic) April 2020 HLD (hyperlipidemia) (Chronic) Hospital Course and Treatment Imaging Results: MAUREEN -negative for vegetations TUDY: CT ABDOMEN AND PELVIS WITHOUT CONTRAST REASON FOR EXAM: Male, 80 years old. PAIN AND SEPSIS. FRACTURED LEFT HIP RADIATION DOSAGE (If Supplied By Facility): CTDIvol = ( 13.65 ) mGy, DLP = ( 777.73 ) mGycm TECHNIQUE: Transaxial images were obtained from the dome of the diaphragm to the symphysis pubis without oral contrast, and without intravenous contrast. Sagittal and coronal images were reconstructed. Individualized dose optimization techniques were used for this CT. COMPARISON: None. FINDINGS: Small right pleural effusion with the right basilar atelectasis. Bullous changes in the left lower lobe. Coronary artery calcification. There are scattered low density nodules in the liver most likely representing multiple cysts. Normal gallbladder and extrahepatic biliary system. Normal spleen. Normal pancreas. Normal bilateral adrenal glands. There is a 1 cm x 1.5 cm catheter is in the upper pole calyx of the right kidney. There is a 4.57 m cyst in the medial inferior pole of the right kidney. Normal left kidney. Normal visualized stomach. Normal small intestine. There are multiple colonic diverticula consistent with diverticulosis. The appendix is visualized and appears normal. There is diffuse atherosclerotic calcification of the abdominal aorta, without a demonstrated aneurysm. Normal inferior vena cava. Normal retroperitoneum. There is diffuse thickening of the urinary bladder wall. A ZAYAS catheter is seen within the empty bladder. There is enlargement of the prostate gland. It measures 4.8 cm x 6.4 cm. Small bilateral inguinal hernias containing fat. Prior laminectomy and fusion at the L4-L5 level. Grade 1 anterior listhesis of L4 on L5. CT/Abdomen/Pel W ORAL Cont Only IMPRESSION: Diffuse bladder wall thickening. Prostatic enlargement. Findings suggesting multiple cysts in the liver. 1.5 cm x 1 cm calculus in the upper pole calyx of the right kidney. STUDY: CT LUMBAR SPINE WITHOUT CONTRAST REASON FOR EXAM: Male, 80 years old. BACTEREMIA -- LEFT HIP FX X2 WEEKS AGO--S/P FALL RADIATION DOSAGE (If Supplied By Facility): CTDIvol = ( 27.19 ) mGy, DLP = ( 837.66 ) mGycm TECHNIQUE: The patient was scanned in a multi detector CT scanner. High resolution transaxial imaging was performed. Images were obtained from to . Sagittal and coronal images were reconstructed. Individualized dose optimization techniques were used for this CT. COMPARISON: None FINDINGS: Normal lumbar lordosis. There is no demonstrated fracture. There is multilevel endplate spondylosis of the lumbar vertebrae. There is multi-level degenerative disc disease with multi-level disc space narrowing. L1-2: There is mild disc space narrowing and endplates spondylosis. There is mild depression at the inferior endplate of L1 with cortical step-off, consistent with acute fracture. There is no demonstrated central canal or foraminal stenosis. L2-3: There is minimal disc space narrowing and endplate spondylosis. There is no significant disc herniation, central canal or foraminal stenosis. Mild bilateral facet arthropathy L3-4: There is mild disc space narrowing and endplates spondylosis. Evaluation of the central can and foramina is limited by hardware artifact. L4-5: There is mild disc space narrowing and endplates spondylosis. There is posterior transpedicular screw fusion in place. There is grade 1 anterolisthesis. Evaluation of the central canal and neural foramina is limited secondary to hardware artifact. L5-S1: There is minimal disc space narrowing and endplate spondylosis. There is no significant disc herniation, central canal or foraminal stenosis. CT/Spine Lumbar WITH Contrast IMPRESSION: Mild inferior endplate fracture at L1, likely acute L4/L5: Grade 1 anterolisthesis with posterior fusion. If symptoms persists, further evaluation with contrast-enhanced MRI can be obtained. Electronically Signed: Zandra Moncada MD at 9:42 EDT Tel , Service support , Reason For Study: Murmur, Bacteremia Procedure This was a 2D Doppler, Color Flow transthoracic echocardiogram. The study was technically difficult. The study was technically limited. Limited views were obtained. Contrast injection was performed. Patient has Lt hip fracture, unable to roll onto left side, scanned supine/slightly rolled onto Rt side Very technically difficult due to suboptimal pt positioning. Exam performed portable in patient room. Left Ventricle Normal size and thickness. The estimated ejection fraction is 65 %. Stage 1 diastolic dysfunction. No regional wall motion abnormalities noted. Right Ventricle Normal size and thickness. Normal systolic function. Atria Normal left atrium. Normal right atrium. Normal atrial septum. Mitral Valve The mitral valve is structurally normal. No prolapse or stenosis seen. Tricuspid Valve Normal tricuspid valve. Unable to estimate RV systolic pressure due to insufficient tricuspid regurgitant envelope. Aortic Valve Trisinus/trileaflet aortic valve. Pulmonic Valve Normal pulmonic valve. Great Vessels Normal aortic root. Normal arch. Normal inferior vena cava. Inferior vena cava collapse with sniff. Pericardium/Pleural No pericardial effusion. Medication Diluted definity 3ml given slow IV push to enhance endocardial definition. Doppler Measurements & Calculations MV E max derrek: 57.5 cm/sec Lat Peak E' Derrek: 6.4 cm/sec Med Peak E' Derrek: 4.2 cm/sec MV A max derrek: 112.8 cm/sec E/E' lat: 9.0 E/E' med: 13.7 MV E/A: 0.51 Ao V2 max: 128.9 cm/sec LV V1 max: 87.2 cm/sec Ao max P.6 mmHg LV V1 max P.0 mmHg Ao V2 mean: 92.4 cm/sec Ao mean P.7 mmHg Ao V2 VTI: 23.8 cm Interpretation Summary The estimated ejection fraction is 65 %. Stage 1 diastolic dysfunction. Unable to estimate RV systolic pressure due to insufficient tricuspid regurgitant envelope. The study was technically difficult. Contrast injection was performed. STUDY: X-RAY - PELVIS REASON FOR EXAM: Male, 80 years old. FALL. PAINFUL LEFT HIP/LEG TECHNIQUE: One view of the pelvis was obtained. COMPARISON: None. FINDINGS: Contrast within the urinary bladder. Lower lumbar spine surgical fixation hardware. Acute comminuted left intertrochanteric femoral neck fracture. No acute dislocation. No acute bone destruction. 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 Mild sacroiliac joint arthrosis. Moderate lumbar spine osteoarthritis. Osteopenia/osteoporosis. RAD/Pelvis 1 or 2 Views IMPRESSION: Acute left intertrochanteric femoral neck comminuted fracture Degenerative/postsurgical changes, as above Electronically Signed: Aston Griffin DO at 11:10 EDT Tel , Service support , ID Orthopedic Surgery Operations: None, - - Cephalo-medullary fixation left hip Procedures: PICC line placement, - - MAUREEN Summary of Care Provided: Mr Mortensen is an 80 yo male who recently suffered a stroke with residual LE weakness who had a mechanical fall on 05/23/2020 and was found to have an Intertrochanteric Femoral Neck Comminuted Fracture of the L hip. He was also found to have E. casseliflavus bacteremia. ID and Ortho were consulted. He was treated with Unasyn and blood cx cleared on 05/28 and have remain neg. There was a reported allergy to PCN but the pt was placed on ampicillin and has tolerated this without issues. A MAUREEN was done to r/o IE prior to surgery for a persistently elevated white count and was negative for vegetations. CT A/P was also done looking for a source but this too was neg. He was take to the OR on 06/02 for a Cephalo-medullary fixation of the left hip and he did well with the surgery and in the postoperative period. He was stable for d/c on 06/04 and will be d/c to Rehab today after his PICC is placed for continuation of his abx until 06/11. I would recommend a f/u CBC and BMP at least weekly for now. Acute L2/2 Mechanical Fall -POD 2 Cephalo-medullary fixation left hip -WBAT -subq lovenox x 30 days postop (07/03) -remove dressing in 72 hrs post op (06/05) -pippa removed 14 days post op (06/16) -f/u with ortho as outpt after d/c from Rehab -OOB -Patient anum-op assessment using NSQIP deemed patient to be below average risk for perioperative complications -d/c IVF -PRN pain meds and bowel regimen -IS Severe Sepsis 2/2 Enterococcal Bacteremia -continue amp q 6 hrs per ID--> will need until 06/11 (14 days from neg cx) per d/w with Dr. Boateng -will have PICC placed after d/w today -MAUREEN negative for valvular vegetations -Blood cx from 05/28 and 05/29 with NGTD -CT abd/Pelvis not revealing any source of infection -? teeth -would recommend getting teeth addressed after acute issues are resolved Leukocytosis -up today but suspect reactive postoperatively -repeat pending -MAUREEN and CT A/P neg for infectious source Acute Encephalopathy-multifactorial -resolved -pt VERY HUGHES and this contributes to him clinically appearing confused Mild Hyponatremia -resolved -d/c chlorthalidone and switched to Norvasc Hypokalemia -resolved Recent Stroke -April 2020 -Plavix and ASA at d/c Mild Anemia -suspect related to acute illness -no s/o acute blood loss -stable L1 Compression Fractures -treat symptomatically H/O Stroke -ASA HPL/HTN -continue Statin -continue Atenolol -continue Norvasc 5 mg -BP are stable with change of medications from Chlorthalidone to Norvasc Vitamin D Deficiency -continue replacement DVT prophylaxis -Lovenox BID Code Status -Full > 31' min spent on discharge planning and coordination Patient Problems: Active and Suspected Problems Bacteremia (Acute) - Physical Exam Vitals/I&O's: Vital Signs Temp Pulse Resp BP Pulse Ox 98 F 55 L 18 117/61 95 06/04/20 02:05 06/04/20 02:05 06/04/20 02:05 06/04/20 02:05 06/04/20 02:05 Oxygen Flow Rate (L/min) 2 Oxygen Delivery Method Room Air Weight: 89.403 kg Body Mass Index (BMI) 29.0 Finger Stick Blood Glucose 90 Intake and Output for Last 24 Hours 06/02/20 06/03/20 06/04/20 23:59 23:59 23:59 Intake Total 1581.25 / 1581.25 2675.5 / 2915.5 540 / 540 Output Total 900 / 900 1935 / 2185 500 / 500 Balance 681.25 / 681.25 740.5 / 730.5 40 / 40 General: Alert, Oriented x3, Cooperative, No apparent distress, Well developed, Well nourished, - - Older WM sitting on EOB with PT and OT at bedside HEENT: Atraumatic, PERRLA, EOMI, Normocephalic, EAC Clear, - - Very HUGHES Oral: Moist Mucosa, No Gingival or Mucosal Lesions/ Ulcerations, - - Poor dentition Neck: Supple, No JVD, No Nodes, Trachea Midline, Thyroid Normal Size and Texture Lungs: Clear to auscultation, Normal air movement, No rhonchi, No wheeze Cardiovascular: Regular rate, Regular Rhythm, Normal S1, Normal S2, No murmurs, No Ectopic Activity, No rub noted, No Gallop Abdomen: Bowel Sounds Present, Soft, Non Tender, Non-Distended, No hernias noted Extremities: No clubbing, No cyanosis, No edema, Capillary Refill Less than 3 Seconds, Edema - Trace on L LE Skin: No rashes, No breakdown, - - surgical dressing in place and POLINA hose on Musculoskeletal: Arthritic Changes, Muscle Wasting - L LE, Tenderness - Mild L Hip Lymphatic: No Cervical, Supraclavicular, or Inguinal Adenopathy Neurological: Cranial nerves II-XII grossly intact, Coordination normal, - - R LE foot drop Psych/Mental Status: Normal Affect, Appropriate, Alert and oriented to time, place, person, mood and affect Microbiology Past 72 Hours 05/29/20 16:10 Blood Culture (Wb) - Right Hand Blood Culture - Final No growth in 5 days. 05/29/20 16:00 Blood Culture (Wb) - Right Wrist Blood Culture - Final No growth in 5 days. 05/28/20 07:40 Blood Culture (Wb) - Left Hand Blood Culture - Final No growth in 5 days. 05/28/20 07:30 Blood Culture (Wb) - Right Hand Blood Culture - Final No growth in 5 days. Laboratory Results 06/04/20 05:30: Sodium 138, Potassium 3.6, Chloride 102, Carbon Dioxide 32.0, Anion Gap 4 L, BUN 15, Creatinine 0.58 L, Estim Creat Clear Calc 57.93, Est GFR (MDRD) Af Amer 173, Est GFR (MDRD) Non-Af 143, BUN/Creatinine Ratio 25.9 H, Glucose 107 H, Calcium 8.8 Current Medications Acetaminophen (Tylenol) 1,000 mg PO Q8 [facility] Last Admin: 06/04/20 06:05 Dose: 1,000 mg Documented by: Al Hydroxide/Mg Hydroxide (Mylanta Ii) 30 ml PO Q4H PRN PRN PRN Reason: HEARTBURN Last Admin: 05/26/20 00:31 Dose: 30 ml Documented by: Amlodipine Besylate (Norvasc) 5 mg PO DAILY [facility] Last Admin: 06/03/20 10:41 Dose: 5 mg Documented by: Atenolol (Tenormin (Beta Sena)) 50 mg PO DAILY [facility] Last Admin: 06/03/20 10:45 Dose: 50 mg Documented by: Atorvastatin Calcium (Lipitor) 20 mg PO QHS [facility] Last Admin: 06/03/20 21:36 Dose: 20 mg Documented by: Calamine/Phenol (Calmoseptine Ointment) 1 applic TOPICAL 4X/DAY [facility]; Protocol Last Admin: 06/03/20 21:37 Dose: 1 applic Documented by: Docusate Sodium (Colace) 200 mg PO BID PRN PRN PRN Reason: Constipation Last Admin: 05/25/20 06:47 Dose: 200 mg Documented by: Enoxaparin Sodium (Lovenox) 40 mg SC DAILY@0600 [facility] Last Admin: 06/04/20 06:04 Dose: 40 mg Documented by: Ergocalciferol (Vitamin D) 50,000 unit PO Q7D [facility] Stop: 07/11/20 17:01 Last Admin: 05/30/20 17:31 Dose: 50,000 unit Documented by: Hydromorphone HCl (Dilaudid Inj) 0.5 mg IV Q4H PRN PRN PRN Reason: Pain Score 6-10/10 Last Admin: 06/03/20 12:56 Dose: 0.5 mg Documented by: Ampicillin Sodium 2 gm/ Sodium (Chloride) 100 mls @ 200 mls/hr IV Q6 [facility] Last Admin: 06/04/20 06:04 Dose: 200 mls/hr Documented by: Sodium Chloride () 250 mls @ 15 mls/hr IV .[id number] PRN PRN Reason: Saline Flush Sodium Chloride () 250 mls @ 15 mls/hr IV .[id number] PRN PRN Reason: Additional IVPB Infusion Nutritional Formula (Lactose Free) (Ensure Enlive) 120 ml PO 4X/DAY [facility] Last Admin: 06/03/20 21:37 Dose: 120 ml Documented by: Ondansetron HCl (Zofran) 4 mg IV Q8H PRN PRN PRN Reason: NAUSEA/VOMITING Last Admin: 05/30/20 23:12 Dose: 4 mg Documented by: Oxycodone HCl (Oxyir) 5 mg PO Q4H PRN PRN PRN Reason: Pain Score 4-5/10 Last Admin: 06/03/20 18:58 Dose: 5 mg Documented by: Oxycodone HCl (Oxyir) 10 mg PO Q4H PRN PRN PRN Reason: Pain Score 6-10/10 Last Admin: 05/31/20 10:08 Dose: 10 mg Documented by: Polyethylene Glycol (Miralax) 17 gm PO DAILY PRN PRN Reason: Constipation Last Admin: 05/28/20 08:49 Dose: 17 gm Documented by: Senna/Docusate Sodium (Senokot-S, Anum-Colace) 2 tablet PO BID [facility] Last Admin: 06/03/20 21:36 Dose: 2 tablet Documented by: Sodium Chloride () 10 - 40 ml IV UD PRN PRN Reason: SALINE FLUSH Last Admin: 06/04/20 06:05 Dose: 10 ml Documented by: Discharge Activity: May Not Drive, May Not Shower - until 06/06, Use Walker Weight Bearing Status: Weight bearing as tolerated Keep extremity elevated above heart level: Left Leg Call your doctor if your incision/area has: Continuous Slow Oozing, Sudden Increased Bleeding, Increased Pain/ Swelling, Increased Redness, Swelling at the incision site Call your doctor if you observe: Fever of 101 or Higher Cleanse incision/area with: Soap & Water Home Medications: Medications to take at Discharge Aspirin [Aspir 81] 81 mg PO DAILY 11/13/18 Clopidogrel Bisulfate [Clopidogrel] 75 mg PO DAILY 05/23/20 Simvastatin 40 mg PO QHS 05/23/20 Acetaminophen [Tylenol] 1,000 mg PO Q8 tablet 06/04/20 Amlodipine [Norvasc] 5 mg PO DAILY tablet 06/04/20 Ampicillin [Omnipen-N] 2 gm IV Q6 8 Days vial 06/04/20 Atenolol [Tenormin (beta sena)] 50 mg PO DAILY tablet 06/04/20 Docusate Sodium [Colace] 200 mg PO BID PRN PRN capsule 06/04/20 Enoxaparin [Lovenox] 40 mg SC DAILY@0600 30 Days syringe 06/04/20 Ensure Enlive 120 ml PO 4X/DAY liquid 06/04/20 Ergocalciferol [Vitamin D] 50,000 unit PO Q7D capsule 06/04/20 Mag Hydrox/Al Hydrox/Simeth [Mylanta II] 30 ml PO Q4H PRN PRN udc 06/04/20 Menthol/Lanolin/Calamine/Znox [Calmoseptine Ointment] 1 applic TOPICAL 4X/DAY tube 06/04/20 Polyethylene Glycol 3350 [Miralax] 17 gm PO DAILY PRN packet 06/04/20 Senna/Docusate Sodium [Senokot-S] 2 tablet PO BID tablet 06/04/20 Primary Care Physician: Jessica Santiago DO [Primary Care Provider] - Please follow up with your Primary Care Physician in: 1-2 weeks after d/c from Rehab Please Follow Up With: Deny Berman DO When: after d/c from Rehab Medical Necessity - Tobacco Use Smoking Status: Former smoker Meaningful Use Info Meaningful Use Diagnoses (Choose all that apply): None applicable Inpatient E&M: [id number] [facility]
[2020-06-04 09:35] LABS: Absolute Lymphocyte Count 1.56 X10^3/uL (0.83-4.51); Absolute Neutrophil Count 8.7 X10^3/uL (2.0-7.7); Basophil# 0.06 X10^3/uL; Basophil% 0.5 % (0-1); Eosinophil# 0.59 X10^3/uL; Hematocrit 35.3 % (40-54); Hemoglobin 11.4 g/dL (13.0-16.5); Lymphocyte # 1.56 X10^3/ul (4.0); Lymphocyte % 13.3 % (19-41); Mean Corp Hgb Conc 32.3 g/dL (32-36); Mean Corpuscular Hgb 30.8 pg (27.0-32.0); Mean Corpuscular Volume 95.4 fL (80-94); Mean Platelet Vol. 8.3 fl (6.2-12.0); Monocyte# 0.76 X10^3/uL; Monocyte% 6.5 % (0-10); NRBC Flagged by Analyzer 0 % (0-5); Neutrophil # 8.66 X10^3/uL (2.7-7.7); Neutrophil % 73.8 % (47-70); Platelet Count 369 K/mm3 (150-450); RBC Distribution Width SD 44.9 fl (35.1-43.9); White Blood Count 11.7 K/mm3 (4.4-11.0)
[2020-06-04] MEDS: Senna/Docusate Sodium 1 Tablet 2 TABLET PO (10:17)
[2020-06-04] MEDS: Menthol/Lanolin/Calamine/Znox 113 GM Tube 1 APPLIC TOPICAL ×2 (10:17→13:18)
[2020-06-04] MEDS: amLODIPine 5 MG Tablet PO (10:17)
[2020-06-04] MEDS: Atenolol 50 MG Tablet PO (10:19)
[2020-06-04 13:20] VITALS: BP 112/80; PULSE 70; RESP 18; TEMP 36.8; O2SAT 97
== END 2020-06-04 14:14 | DRG 480 ==
LOC: ED 11:41 → MS3 12:07
PROVIDERS: Anesthesiology; Hospitalist; Internal Medicine; Nurse Practitioner Family; Orthopaedic Surgery; Emergency Provider Emergency Medicine; PCP Family Medicine; Visit Provider Internal Medicine
DX: S72.142A Displaced intertrochanteric fracture of left femur, initial encounter for closed fracture (principal); A41.81 Sepsis due to Enterococcus; G92 Toxic encephalopathy; R65.20 Severe sepsis without septic shock; E87.1 Hypo-osmolality and hyponatremia; M48.56XA Collapsed vertebra, not elsewhere classified, lumbar region, initial encounter for fracture; I69.354 Hemiplegia and hemiparesis following cerebral infarction affecting left non-dominant side; E87.6 Hypokalemia; E55.9 Vitamin D deficiency, unspecified; D64.9 Anemia, unspecified; T40.605A Adverse effect of unspecified narcotics, initial encounter; W01.0XXA Fall on same level from slipping, tripping and stumbling without subsequent striking against object, initial encounter; Y93.9 Activity, unspecified; Y92.511 Restaurant or cafe as the place of occurrence of the external cause; Z96.653 Presence of artificial knee joint, bilateral; I10 Essential (primary) hypertension; E78.00 Pure hypercholesterolemia, unspecified; E78.5 Hyperlipidemia, unspecified; Z79.82 Long term (current) use of aspirin; Z79.02 Long term (current) use of antithrombotics/antiplatelets; Z79.899 Other long term (current) drug therapy; Z87.891 Personal history of nicotine dependence; Z86.19 Personal history of other infectious and parasitic diseases; M06.9 Rheumatoid arthritis, unspecified
CPT/HCPCS: 36415; 36569; 71045; 72132; 72170; 73502; 73552; 74176; 76000; 80048; 80202; 81001; 82306; 83605; 83735; 84484; 85025; 85027; 86850; 86900; 86901; 87040; 87077; 87086; 87088; 87149; 87186; 87635; 93005; 93306; 93312; 93320; 93325; 97110; 97116; 97163; 97166; 97530; 99285; C1713; C1776; J2185; J7030; J7040; J7120; Q9957; Q9967; A4216; C8929; J2405; U0003

== ENCOUNTER 2020-06-04 14:25 | Inpatient (IN) | payer MEDICARE, OTHER, SELFPAY ==
[2020-06-02 09:03] VITALS: BMI 29.0
[2020-06-04 14:38] VITALS: BP 119/75; PULSE 66; RESP 18; TEMP 36.7; O2SAT 94; BMI 29.0
[2020-06-04] MEDS: Menthol/Lanolin/Calamine/Znox 113 GM Tube 1 APPLIC TOPICAL ×2 (17:07→20:37)
[2020-06-04] MEDS: 0.9% Saline Lock 10 ML Syringe IV (17:21)
--- NOTE | 2020-06-04 18:01 | NURSING ---
pt alert but forgetful. oriented to call lopez use, personal alarm in place.
[2020-06-04 18:51] VITALS: O2SAT 96
[2020-06-04] MEDS: Nystatin Powder 15gm Bottle 1 APPLIC TOPICAL (20:37)
[2020-06-04] MEDS: Acetaminophen 500 MG Tablet 1000 MG PO (20:38)
[2020-06-04] MEDS: Atorvastatin Calcium 20 MG Tablet PO (20:41)
[2020-06-04] MEDS: oxyCODONE 5 MG Tablet PO (20:41)
[2020-06-04 21:32] VITALS: BP 105/56; PULSE 58; RESP 16; TEMP 36.7; O2SAT 95
--- NOTE | 2020-06-04 23:05 | HP.PCM_ITS ---
Problem List (1) Debility Status: Acute (2) Fall Status: Acute (3) Closed left hip fracture Status: Acute (4) Stroke Status: Chronic (5) Vitamin D deficiency Status: Chronic (6) Bacteremia Status: Acute (7) HTN (hypertension) Status: Chronic Comment: April 2020 (8) HLD (hyperlipidemia) Status: Chronic History of Present Illness Date of Admission: 06/04/20 Chief Complaint: Here for greater than 3 hours daily rehabilitation, strengthening, also intravenous antibiotics, prior to discharge home with . The patient is a 80 year old Male with below past medical history of recent stroke, hypertension, hyperlipidemia. Patient fell 05/23/2020, suffered left hip fracture, In addition, he had E. Casseliflavus bacteremia treated with IV Unasyn, blood cultures cleared 05/28/2020 and remained negative. Patient has penicillin allergy but has tolerated IV Ampicillin. MAUREEN negative for vegetations, CT abdomen/pelvis negative for source of infection. Suspect dental source for infection. Dr. Berman performed left hip cephalo-medullary nail fixation 06/02/2020. PICC line placed 06/04/2020 for Ampicillin IV thru 06/11/2020. Patient admitted to 06/04/2020 for greater than 3 hours daily of rehabilitation, strengthening, intravenous antibiotics, prior to discharge home with . Past Medical History Past Medical History (Chronic Problems): Chronic Problems Stroke (Chronic) Vitamin D deficiency (Chronic) Acute stroke (Chronic) HTN (hypertension) (Chronic) April 2020 HLD (hyperlipidemia) (Chronic) Allergies Penicillins Allergy (Verified 05/23/20 11:35) Hives adhesive tape Adverse Reaction (Verified 05/23/20 11:35) Other [place] blisters fentanyl Adverse Reaction (Verified 05/28/20 09:55) PT UNSURE OF REACTION morphine Adverse Reaction (Verified 05/28/20 09:55) PT UNSURE OF REACTION Home Medications: Ambulatory Orders Medication Instructions Recorded Aspirin [Aspir 81] 81 mg PO DAILY 11/13/18 Clopidogrel Bisulfate [Clopidogrel] 75 mg PO DAILY 05/23/20 Simvastatin 40 mg PO QHS 05/23/20 Acetaminophen [Tylenol] 1,000 mg PO Q8 06/04/20 Amlodipine [Norvasc] 5 mg PO DAILY 06/04/20 Ampicillin [Omnipen-N] 2 gm IV Q6 06/04/20 Atenolol [Tenormin (beta sena)] 50 mg PO DAILY 06/04/20 Docusate Sodium [Colace] 200 mg PO BID PRN PRN cap 06/04/20 Enoxaparin [Lovenox] 40 mg SUBCUT DAILY@0600 06/04/20 Ensure Enlive 120 ml PO 4X/DAY 06/04/20 Ergocalciferol [Vitamin D] 50,000 unit PO Q7D 06/04/20 Mag Hydrox/Al Hydrox/Simeth 30 ml PO Q4H PRN PRN udc 06/04/20 [Mylanta II] Menthol/Lanolin/Calamine/Znox 1 applic TOPICAL 4X/DAY 06/04/20 [Calmoseptine Ointment] Polyethylene Glycol 3350 [Miralax] 17 gm PO DAILY PRN packet 06/04/20 Senna/Docusate Sodium [Senokot-S] 2 tab PO BID 06/04/20 Surgical History: total knee arthroplasty - left leg ORIF, - - Back surgery. Left hip cephalo-medullary nail fixation. Psychiatric History: No pertinent psych hx Lives: Spouse/ Significant Other Smoking Status: Former smoker Tobacco Use: Non-smoker Alcohol: None Drugs: None - *Family History Maternal History Items: - Paternal History Items: - Review of Systems Constitutional: Denies: Chills, Fever, Weight Change HEENT: Denies: Head Aches, Sinus Congestion, Sinus Drainage Cardiovascular: Denies: Chest Pain, Palpitations Respiratory: Denies: Cough, Shortness of breath at rest, Sputum production Gastrointestinal: Denies: Abdominal Pain, Nausea, Vomiting Genitourinary: Denies: Dysuria Musculoskeletal: Denies: Joint Pain, Joint Tenderness Skin: Denies: Rash, Wounds Neurological: Denies: Numbness, Tingling, Focal weakness Psychiatric: Denies: Anxiety, Depression, Homicidal Ideations, Suicidal Ideations Hematologic/ Lymphatic: Denies: Easy Bruising, Easy Bleeding VTE Information - Inpt Only VTE Present on Admission: No VTE Mechan Device Prophylaxis: Knee High POLINA Hose VTE Pharm Prophylaxis ordered?: Yes Patient Problems: Active and Suspected Problems Debility (Acute) Fall (Acute) Closed left hip fracture (Acute) - Physical Exam Vitals/I&O's: Vital Signs Temp Pulse Resp BP Pulse Ox 98.1 F 58 L 16 105/56 L 95 08/30/20 21:32 06/04/20 21:32 06/04/20 21:32 06/04/20 21:32 06/04/20 21:32 Oxygen Delivery Method Room Air Weight: 89 kg Body Mass Index (BMI) 29.0 Finger Stick Blood Glucose 90 Intake and Output for Last 24 Hours 06/02/20 06/03/20 06/04/20 23:59 23:59 23:59 Intake Total 528.75 / 528.75 Output Total 250 / 250 Balance 278.75 / 278.75 General: Alert, Oriented x3, Cooperative HEENT: Atraumatic, PERRLA, EOMI, Normocephalic Neck: Supple, No JVD, Negative Carotid Bruits Lungs: Clear to auscultation, Normal air movement Cardiovascular: Regular rate, No murmurs Abdomen: Bowel Sounds Present, Soft, Non Tender Extremities: No edema, Capillary Refill Less than 3 Seconds Skin: No rashes, No breakdown Musculoskeletal: No Tenderness to Palpation of Joints or Extremities Neurological: Cranial nerves II-XII grossly intact Psych/Mental Status: Normal Affect, Appropriate Current Medications Acetaminophen (Tylenol) 1,000 mg PO Q8 [facility] Last Admin: 06/04/20 20:38 Dose: 1,000 mg Documented by: Al Hydroxide/Mg Hydroxide (Mylanta Ii) 30 ml PO Q4H PRN PRN PRN Reason: HEARTBURN Amlodipine Besylate (Norvasc) 5 mg PO DAILY [facility] Aspirin (Ecotrin) 81 mg PO DAILY [facility] Atenolol (Tenormin (Beta Sena)) 50 mg PO DAILY [facility] Atorvastatin Calcium (Lipitor) 20 mg PO QHS [facility] Last Admin: 06/04/20 20:41 Dose: 20 mg Documented by: Bisacodyl (Dulcolax) 10 mg RECTAL .PRN X 1 PRN PRN Reason: Constipation Calamine/Phenol (Calmoseptine Ointment) 1 applic TOPICAL 4X/DAY [facility]; Protocol Last Admin: 06/04/20 20:37 Dose: 1 applicatio Documented by: Clopidogrel Bisulfate (Plavix) 75 mg PO DAILY [facility] Docusate Sodium (Colace) 200 mg PO BID PRN PRN PRN Reason: Constipation Enoxaparin Sodium (Lovenox) 40 mg SC DAILY@0600 [facility] Stop: 07/03/20 06:05 Ergocalciferol (Vitamin D) 50,000 unit PO [facility] Heparin Sodium (Beef Lung) () 50 units IV UD PRN PRN Reason: PICC Line Heparin Flush Ampicillin Sodium 2 gm/ Sodium (Chloride) 100 mls @ 200 mls/hr IV Q6 [facility] Stop: 06/12/20 12:29 Last Infusion: 06/04/20 18:00 Dose: Infused Documented by: Sodium Chloride () 250 mls @ 15 mls/hr IV .[id number] PRN PRN Reason: Saline Flush Last Infusion: 06/04/20 21:55 Dose: 0 mls/hr Documented by: Sodium Chloride () 250 mls @ 15 mls/hr IV .[id number] PRN PRN Reason: Additional IVPB Infusion Magnesium Hydroxide (Milk Of Magnesia) 30 ml PO .PRN X 1 PRN PRN Reason: Constipation Nutritional Formula (Lactose Free) (Ensure Enlive) 120 ml PO 4X/DAY [facility] Last Admin: 06/04/20 20:41 Dose: Not Given Documented by: Nystatin (Mycostatin Powder) 1 applic TOPICAL BID@0600,2200 [facility]; Protocol Last Admin: 06/04/20 20:37 Dose: 1 applicatio Documented by: Oxycodone HCl (Oxyir) 5 mg PO Q4H PRN PRN PRN Reason: Pain Score 4-10/10 Last Admin: 06/04/20 20:41 Dose: 5 mg Documented by: Polyethylene Glycol (Miralax) 17 gm PO DAILY PRN PRN PRN Reason: Constipation Senna/Docusate Sodium (Senokot-S, Anum-Colace) 2 tablet PO BID [facility] Last Admin: 06/04/20 20:38 Dose: Not Given Documented by: Sodium Chloride () 10 - 40 ml IV UD PRN PRN Reason: Open End PICC Flush Last Admin: 06/04/20 17:21 Dose: 10 ml Documented by: Sodium Chloride (0.9% Nacl (Sterile) Posiflush) 10 - 40 ml IV UD PRN PRN Reason: Port access or dressing change Assessment/Plan All Active Problems Bacteremia (Acute) Debility (Acute) Fall (Acute) Closed left hip fracture (Acute) 80 year old male with below past medical history hospitalized for left hip fracture, underwent left hip cephalo-medullary nail fixation 06/02/[address] Berman, complicated by E. Casseliflavus bacteremia requiring IV antibiotics, admitted to for greater than 3 hours daily rehabilitation, strengthening, intravenous antibiotics, prior to discharge home with . * Debility - PT/OT. * Pain - Tylenol 1000MG Q8H, Oxycodone 5MG Q4H PRN pain (4-10). * Bowel - Colace 200MG BID PRN, MOM 30ML PO PRN, Miralax 17GM daily PRN, Senna/colace 2 tablets BID, Dulcolax 10MG ID daily PRN. * DVT prophylaxis - Lovenox 40MG SC daily. * Hypertension - Atenolol 50MG daily, Amlodipine 5MG daily. * E. casseliflavus bacteremia - Ampicillin 2GM IV Q6H thru 06/12/2020. * Stroke - Aspirin 81MG daily, Plavix 75MG daily. * Hyperlipidemia - Atorvastatin 20MG QHS. * Nutrition - Ensure 120ML 4x/day. * Vitamin D deficiency - D2 50,000 units per week. * Indigestion - Mylanta II 30ML Q4H PRN. * Skin irritation - Calmoseptine 4x/day. * Tinea Corporis - Nystatin Powder topical BID. * Rash - Hytone 2.5% cream BID.
[2020-06-05] MEDS: 0.9% Saline Lock 10 ML Syringe IV ×3 (00:05→23:18)
[2020-06-05 01:13] VITALS: BMI 29.0
[2020-06-05] MEDS: Enoxaparin 40 MG/0.4 ML Syringe SC (05:17)
[2020-06-05] MEDS: Acetaminophen 500 MG Tablet 1000 MG PO ×3 (05:18→22:34)
[2020-06-05] MEDS: oxyCODONE 5 MG Tablet PO ×2 (05:18→10:13)
[2020-06-05] MEDS: Nystatin Powder 15gm Bottle 1 APPLIC TOPICAL ×2 (05:19→20:22)
--- NOTE | 2020-06-05 05:26 | NURSING ---
rash noted to be spreading to back of arms and back this am. pt states that he is starting to get itchy. will pass along in report to have dr assess rash.
[2020-06-05 06:03] LABS: Anion Gap 6 (5-15); BUN 13 mg/dL (7-18); BUN/Creat Ratio 22.9 RATIO (10-20); Calcium,Total 8.7 mg/dL (8.5-10.1); Chloride 102 mmol/L (98-107); Creatinine, Serum 0.57 mg/dL (0.70-1.30); EST Glomerular Filtration Rate 147 mL/min (>60); Est Glom Filt Rate - Afr Amer 177 mL/min (>60); Estimated Creatinine Clearance 57.93 ml/min; Glucose 129 mg/dL (74-106); Potassium 3.6 mmol/L (3.5-5.1); Sodium Level 135 mmol/L (136-145)
[2020-06-05 06:55] LABS: Hematocrit 36.6 % (40-54); Hemoglobin 11.9 g/dL (13.0-16.5); Mean Corp Hgb Conc 32.5 g/dL (32-36); Mean Corpuscular Hgb 31.6 pg (27.0-32.0); Mean Corpuscular Volume 97.1 fL (80-94); Mean Platelet Vol. 8.6 fl (6.2-12.0); Platelet Count 324 K/mm3 (150-450); RBC Distribution Width CV 13.2 % (11.6-14.6); RBC Distribution Width SD 46.9 fl (35.1-43.9); Red Blood Count 3.77 M/mm3 (4.6-6.2); White Blood Count 11.6 K/mm3 (4.4-11.0)
[2020-06-05 08:09] VITALS: BP 119/70; PULSE 70; RESP 16; TEMP 36.6; O2SAT 93
[2020-06-05] MEDS: Menthol/Lanolin/Calamine/Znox 113 GM Tube 1 APPLIC TOPICAL ×4 (08:34→20:20)
[2020-06-05] MEDS: amLODIPine 5 MG Tablet PO (08:35)
[2020-06-05] MEDS: Atenolol 50 MG Tablet PO (08:35)
[2020-06-05] MEDS: Clopidogrel Bisulfate 75 MG Tablet PO (08:35)
[2020-06-05] MEDS: Aspirin E.C. 81 MG Tablet PO (08:35)
--- NOTE | 2020-06-05 10:05 | NURSING ---
Addendum entered by Kayli Colón 06/05/20 10:24: Hydrocortisone cream order for rash, not Lac-hydrin Original Note: 0600 dose of ampicillain was held until Dr Ling to see pt to make sure he is not having an allergic reaction. Pt has a rash on his back. Dr ling does not believe the rash is from Ampicillain. Lac-Hydrin cream order for the rash. Spoke with Adeel at pharmacy, advised to skip 0600 dose fo amipicillain and give next scheduled dose
--- NOTE | 2020-06-05 13:59 | PCM.PN.ID ---
Patient Problems: Active and Suspected Problems Debility (Acute) Fall (Acute) Closed left hip fracture (Acute) Subjective: Feeling ok, no fever, no n/v/d. - Physical Exam Vitals/I&O's: Vital Signs Temp Pulse Resp BP Pulse Ox 97.8 F 70 16 119/70 93 06/05/20 08:09 06/05/20 08:09 06/05/20 08:09 06/05/20 08:09 06/05/20 08:09 Oxygen Delivery Method Room Air Weight: 89 kg Body Mass Index (BMI) 29.0 Finger Stick Blood Glucose 90 Intake and Output for Last 24 Hours 06/03/20 06/04/20 06/05/20 23:59 23:59 23:59 Intake Total 528.75 / 528.75 976.92 / 976.92 Output Total 250 / 250 Balance 278.75 / 278.75 976.92 / 976.92 General: Alert, Cooperative, No apparent distress Lungs: Clear to auscultation, Normal air movement Cardiovascular: Regular rate, Regular Rhythm Abdomen: Soft, Non Tender, Non-Distended Skin: No rashes Laboratory Results 06/05/20 05:43: WBC 11.6 H, RBC 3.77 L, Hgb 11.9 L, Hct 36.6 L, MCV 97.1 H, MCH 31.6, MCHC 32.5, RDW Std Deviation 46.9 H, RDW Coeff of Flora 13.2, Plt Count 324, MPV 8.6 06/05/20 05:43: Sodium 135 L, Potassium 3.6, Chloride 102, Carbon Dioxide 27.0, Anion Gap 6, BUN 13, Creatinine 0.57 L, Estim Creat Clear Calc 57.93, Est GFR (MDRD) Af Amer 177, Est GFR (MDRD) Non-Af 147, BUN/Creatinine Ratio 22.9 H, Glucose 129 H, Calcium 8.7 Current Medications Acetaminophen (Tylenol) 1,000 mg PO Q8 [facility] Last Admin: 06/05/20 05:18 Dose: 1,000 mg Documented by: Al Hydroxide/Mg Hydroxide (Mylanta Ii) 30 ml PO Q4H PRN PRN PRN Reason: HEARTBURN Amlodipine Besylate (Norvasc) 5 mg PO DAILY [facility] Last Admin: 06/05/20 08:35 Dose: 5 mg Documented by: Aspirin (Ecotrin) 81 mg PO DAILY [facility] Last Admin: 06/05/20 08:35 Dose: 81 mg Documented by: Atenolol (Tenormin (Beta Sena)) 50 mg PO DAILY [facility] Last Admin: 06/05/20 08:35 Dose: 50 mg Documented by: Atorvastatin Calcium (Lipitor) 20 mg PO QHS [facility] Last Admin: 06/04/20 20:41 Dose: 20 mg Documented by: Bisacodyl (Dulcolax) 10 mg RECTAL .PRN X 1 PRN PRN Reason: Constipation Calamine/Phenol (Calmoseptine Ointment) 1 applic TOPICAL 4X/DAY [facility]; Protocol Last Admin: 06/05/20 08:34 Dose: 1 applicatio Documented by: Clopidogrel Bisulfate (Plavix) 75 mg PO DAILY [facility] Last Admin: 06/05/20 08:35 Dose: 75 mg Documented by: Docusate Sodium (Colace) 200 mg PO BID PRN PRN PRN Reason: Constipation Enoxaparin Sodium (Lovenox) 40 mg SC DAILY@0600 [facility] Stop: 07/03/20 06:05 Last Admin: 06/05/20 05:17 Dose: 40 mg Documented by: Ergocalciferol (Vitamin D) 50,000 unit PO Tu [facility] Heparin Sodium (Beef Lung) () 50 units IV UD PRN PRN Reason: PICC Line Heparin Flush Hydrocortisone (Hytone) 1 applic TOPICAL BID [facility]; Protocol Ampicillin Sodium 2 gm/ Sodium (Chloride) 100 mls @ 200 mls/hr IV Q6 [facility] Stop: 06/12/20 12:29 Last Infusion: 06/05/20 13:23 Dose: Infused Documented by: Sodium Chloride () 250 mls @ 15 mls/hr IV .[id number] PRN PRN Reason: Saline Flush Last Infusion: 06/05/20 13:54 Dose: 0 mls/hr Documented by: Sodium Chloride () 250 mls @ 15 mls/hr IV .[id number] PRN PRN Reason: Additional IVPB Infusion Magnesium Hydroxide (Milk Of Magnesia) 30 ml PO .PRN X 1 PRN PRN Reason: Constipation Nutritional Formula (Lactose Free) (Ensure Enlive) 120 ml PO 4X/DAY [facility] Last Admin: 06/05/20 13:41 Dose: Not Given Documented by: Nystatin (Mycostatin Powder) 1 applic TOPICAL BID@0600,2200 [facility]; Protocol Last Admin: 06/05/20 05:19 Dose: 1 applicatio Documented by: Oxycodone HCl (Oxyir) 5 mg PO Q4H PRN PRN PRN Reason: Pain Score 4-10/10 Last Admin: 06/05/20 10:13 Dose: 5 mg Documented by: Polyethylene Glycol (Miralax) 17 gm PO DAILY PRN PRN PRN Reason: Constipation Senna/Docusate Sodium (Senokot-S, Anum-Colace) 2 tablet PO BID [facility] Last Admin: 06/05/20 08:35 Dose: Not Given Documented by: Sodium Chloride () 10 - 40 ml IV UD PRN PRN Reason: Open End PICC Flush Last Admin: 06/05/20 12:00 Dose: 10 ml Documented by: Sodium Chloride (0.9% Nacl (Sterile) Posiflush) 10 - 40 ml IV UD PRN PRN Reason: Port access or dressing change Medical Necessity - Tobacco Use Smoking Status: Former smoker Tobacco Use: Non-smoker Route of nutrition/ use of supplements: [] Nutritional Intake: [] IV Site: [] Ribeiro Catheter: [] - Assessment/Plan Antibiotics: [] Assessment/Plan: [] Active and Suspected Problems Debility (Acute) Fall (Acute) Closed left hip fracture (Acute) On 2 week total course of iv amp for enterococcal bacteremia. Stop date 06/12/20 as planned. Will follow as needed, please call with any new issues.
[2020-06-05 15:17] VITALS: BMI 29.0
[2020-06-05] MEDS: Hydrocortisone 2.5% Crm 1 APPLIC TOPICAL ×2 (16:00→20:21)
[2020-06-05 19:57] VITALS: BP 101/51; PULSE 63; RESP 17; TEMP 37; O2SAT 96
[2020-06-05 20:10] VITALS: BMI 29.0
[2020-06-05] MEDS: Atorvastatin Calcium 20 MG Tablet PO (20:21)
--- NOTE | 2020-06-05 20:53 | PCM.RU.PYE ---
Admission Information Primary Diagnosis:: Left hip fracture, Bacteremia. Status Changes from Prescreening?: No changes Identified Actual Problem List:: Infection, Falls, Cognitve Impr/Memory Loss, Mobility Impaired, Ineffective Communication Potential Problem List:: DVT, Bleeding, Infection, UTI, Aspiration, Falls, Skin Integrity, Depression Risk of Complications DVT: LMWH, POLINA Hose, Sequential Compression Device Bleeding: Monitor Lab Values, Nursing to Teach Precautions for anti-coagulation therapy., Wound, if applicable, to be assessed every shift., Stroke patients assessed for lethargy or change in status. Infection: Clinical Staff to Monitor for S/S of infection:, S/S of infection include fever, redness, warmth, etc. Urinary Tract Infection: Monitor for frequency, burning, discomfort, or incontinence., Nursing will obtain urine sample for urinalysis and C&S when ordered. Aspiration: Clinical staff will monitor for coughing, drooling, congestion., Speech will evaluate swallowing and dsyphasia., Nursing will monitor patient swallowing during meals. Falls: Patient will be evaluated for Fall Precautions, Patient will be placed on Fall Precautions as indicated per protocol. Skin Breakdown: Nursing will assess skin daily using assessment tool., Nursing will place on Skin Breakdown Precautions as indicated. Pain: Clinical staff will assess patient's pain level per protocol., Medications will be given, if needed, and the pain level reassessed., Other methods: Massage, distraction, decrease stimulus, etc. used PRN. Plan of Care Patient requires physician specializing in physical medicine and rehab oversight to provide close medical supervision of rehab issues including: Pain Management, Sleep Problems, Bowel and Bladder, Medical and co-morbidity Management, DVT prophylaxis, Rehabilitation Leadership, Coordination of treatment team Patient needs Physical Therapy: For a minimum of 1 hour, At least 5 out of 7 days Patient needs Physical Therapy to improve:: Mobility, Mobility, Mobility, Strengthening, Transfers, Stretching, ROM, Endurance, Stairs, Gait, Balance Patient needs Occupational Therapy: For a minimum of 1 hour, At least 5 out of 7 days Patient needs Occupational Therapy to improve ADL's incl.: Eating, Grooming, Bathing, Dressing, Toileting, Toilet transfers, Community Reintegration, Higher functioning activities, Household tasks, Adaptive Equipment, Splinting, Other activities as determined Patient requires speech therapy: For a minimum of 1 hour, At least 5 out of 7 days Patient requires speech therapy for: Swallowing, Cognition, Language Skills, Compensatory Strategies Patient requires 24/ Rehabilitation Nursing for: Pain Issues, Identifying and preventing risk factors, Monitoring and reporting current medical conditions, Assisting with ambulation, transfer, and all ADL's, Teaching patients about disease process and medications, Family teaching, Providing safe environment, Bowel and Bladder Issues, Skin integrity, Medication Management Patient needs Hydraulic Rubbish Compactor Mechanic/ Case Management for: Discharge Planning, Arranging Home Equipment or Services, Family Interventions Patient needs Dietary and Nutrition Services for: Adequate Nutrition, Nutritional Supplements, Nutritional Education Goals Patient will remain: free from falls, or injury at time of discharge. Patient will perform bed mobility at: MOD I level of assist. Patient will complete transfers from bed to chair at: Standby Assist. Patient will ambulate: with MOD I assist, with standby assist, 50 feet, with LRD Patient will complete upper body dressing at: MOD I level of assist. Patient will complete lower body dressing at: MOD I level of assist. Patient will complete toileting at: MOD I level of assist. Patient will perform bathing at: - - Supervision. Patient will complete grooming at: MOD I level of assist. Patient will complete home management skills at: MOD I level of assist. Patient will achieve: at MOD I assist Patient will have pain level of: of 3 or less Patient's skin will: remain intact, free from infection. Patient will receive: adequate nutrition. Discharge Planning Pt Prognosis for Sig. Practical Improv. w/in Reasonable Time: Fair Anticipated D/C Destination: Home w/ family or friends Was Preadmission Assessment Accurate?: Yes
[2020-06-05 22:00] VITALS: PULSE 63; RESP 17
[2020-06-06] MEDS: oxyCODONE 5 MG Tablet PO ×3 (03:29→11:46)
[2020-06-06] MEDS: Acetaminophen 500 MG Tablet 1000 MG PO ×3 (06:06→21:00)
[2020-06-06] MEDS: Enoxaparin 40 MG/0.4 ML Syringe SC (06:06)
[2020-06-06] MEDS: 0.9% Saline Lock 10 ML Syringe IV ×4 (06:07→23:22)
[2020-06-06] MEDS: Nystatin Powder 15gm Bottle 1 APPLIC TOPICAL ×2 (06:13→20:03)
[2020-06-06] MEDS: Atenolol 50 MG Tablet PO (07:34)
[2020-06-06] MEDS: Aspirin E.C. 81 MG Tablet PO (07:34)
[2020-06-06] MEDS: Clopidogrel Bisulfate 75 MG Tablet PO (07:34)
[2020-06-06] MEDS: amLODIPine 5 MG Tablet PO (07:34)
[2020-06-06] MEDS: Hydrocortisone 2.5% Crm 1 APPLIC TOPICAL ×2 (07:36→20:01)
[2020-06-06] MEDS: Menthol/Lanolin/Calamine/Znox 113 GM Tube 1 APPLIC TOPICAL ×4 (07:36→20:02)
[2020-06-06 07:40] VITALS: BP 148/58; PULSE 70; RESP 18; TEMP 36.4; O2SAT 93
--- NOTE | 2020-06-06 08:30 | PN_ITS ---
Patient Problems: Active and Suspected Problems Debility (Acute) Fall (Acute) Closed left hip fracture (Acute) Subjective: Patient seen today, he is lying in bed. He had left hip pain this morning, but relieved with pain medications. - Physical Exam Vitals/I&O's: Vital Signs Temp Pulse Resp BP Pulse Ox 97.5 F L 70 18 148/58 H 93 06/06/20 07:40 06/06/20 07:40 06/06/20 07:40 06/06/20 07:40 06/06/20 07:40 Oxygen Delivery Method Room Air Weight: 90.9 kg Body Mass Index (BMI) 29.0 Finger Stick Blood Glucose 90 Intake and Output for Last 24 Hours 06/04/20 06/05/20 06/06/20 23:59 23:59 23:59 Intake Total 528.75 / 528.75 1567.92 / 1567.92 500 / 500 Output Total 250 / 250 1050 / 1050 250 / 250 Balance 278.75 / 278.75 517.92 / 517.92 250 / 250 General: Alert, Oriented x3, Cooperative HEENT: Atraumatic, PERRLA, EOMI, Normocephalic Neck: Supple, No JVD, Negative Carotid Bruits Lungs: Clear to auscultation, Normal air movement Cardiovascular: Regular rate, No murmurs Abdomen: Bowel Sounds Present, Soft, Non Tender Extremities: No edema, Capillary Refill Less than 3 Seconds Skin: No rashes, No breakdown Musculoskeletal: No Tenderness to Palpation of Joints or Extremities Neurological: Cranial nerves II-XII grossly intact Psych/Mental Status: Normal Affect, Appropriate Current Medications Acetaminophen (Tylenol) 1,000 mg PO Q8 [facility] Last Admin: 06/06/20 06:06 Dose: 1,000 mg Documented by: Al Hydroxide/Mg Hydroxide (Mylanta Ii) 30 ml PO Q4H PRN PRN PRN Reason: HEARTBURN Amlodipine Besylate (Norvasc) 5 mg PO DAILY [facility] Last Admin: 06/06/20 07:34 Dose: 5 mg Documented by: Aspirin (Ecotrin) 81 mg PO DAILY [facility] Last Admin: 06/06/20 07:34 Dose: 81 mg Documented by: Atenolol (Tenormin (Beta Sena)) 50 mg PO DAILY [facility] Last Admin: 06/06/20 07:34 Dose: 50 mg Documented by: Atorvastatin Calcium (Lipitor) 20 mg PO QHS [facility] Last Admin: 06/05/20 20:21 Dose: 20 mg Documented by: Bisacodyl (Dulcolax) 10 mg RECTAL .PRN X 1 PRN PRN Reason: Constipation Calamine/Phenol (Calmoseptine Ointment) 1 applic TOPICAL 4X/DAY [facility]; Protocol Last Admin: 06/06/20 07:36 Dose: 1 applicatio Documented by: Clopidogrel Bisulfate (Plavix) 75 mg PO DAILY [facility] Last Admin: 06/06/20 07:34 Dose: 75 mg Documented by: Docusate Sodium (Colace) 200 mg PO BID PRN PRN PRN Reason: Constipation Enoxaparin Sodium (Lovenox) 40 mg SC DAILY@0600 [facility] Stop: 07/03/20 06:05 Last Admin: 06/06/20 06:06 Dose: 40 mg Documented by: Ergocalciferol (Vitamin D) 50,000 unit PO Tu [facility] Last Admin: 06/06/20 07:34 Dose: 50,000 unit Documented by: Heparin Sodium (Beef Lung) () 50 units IV UD PRN PRN Reason: PICC Line Heparin Flush Hydrocortisone (Hytone) 1 applic TOPICAL BID [facility]; Protocol Last Admin: 06/06/20 07:36 Dose: 1 applicatio Documented by: Ampicillin Sodium 2 gm/ Sodium (Chloride) 100 mls @ 200 mls/hr IV Q6 [facility] Stop: 06/12/20 12:29 Last Infusion: 06/06/20 06:55 Dose: Infused Documented by: Sodium Chloride () 250 mls @ 15 mls/hr IV .[id number] PRN PRN Reason: Saline Flush Last Infusion: 06/06/20 06:55 Dose: 0 mls/hr Documented by: Sodium Chloride () 250 mls @ 15 mls/hr IV .[id number] PRN PRN Reason: Additional IVPB Infusion Magnesium Hydroxide (Milk Of Magnesia) 30 ml PO .PRN X 1 PRN PRN Reason: Constipation Nystatin (Mycostatin Powder) 1 applic TOPICAL BID@0600,2200 [facility]; Protocol Last Admin: 06/06/20 06:13 Dose: 1 applicatio Documented by: Oxycodone HCl (Oxyir) 5 mg PO Q4H PRN PRN PRN Reason: Pain Score 4-10/10 Last Admin: 06/06/20 07:34 Dose: 5 mg Documented by: Polyethylene Glycol (Miralax) 17 gm PO DAILY PRN PRN PRN Reason: Constipation Senna/Docusate Sodium (Senokot-S, Anum-Colace) 2 tablet PO BID [facility] Last Admin: 06/06/20 07:36 Dose: Not Given Documented by: Sodium Chloride () 10 - 40 ml IV UD PRN PRN Reason: Open End PICC Flush Last Admin: 06/06/20 06:07 Dose: 10 ml Documented by: Sodium Chloride (0.9% Nacl (Sterile) Posiflush) 10 - 40 ml IV UD PRN PRN Reason: Port access or dressing change Capacity - Capacity Assessment Tool Can the patient make a choice & communicate that choice?: Yes Can the patient understand benefits, risks and alternatives?: Yes Can the patient make a logical, rational choice?: Yes Is the choice the patient makes consistent w/ their values?: Yes Is there an impending, emergent risk to the patient?: No Does the patient have an Advance Directive?: No Is there a Surrogate Available?: Yes i.e. HCPOA: Yes i.e. close relative (spouse, child, parent, sibling)?: Yes Medical Necessity - Tobacco Use Smoking Status: Former smoker Tobacco Use: Non-smoker Assessment/Plan All Active Problems Bacteremia (Acute) Debility (Acute) Fall (Acute) Closed left hip fracture (Acute) 80 year old male with below past medical history hospitalized for left hip fracture, underwent left hip cephalo-medullary nail fixation 06/02/[address] Berman, complicated by E. Casseliflavus bacteremia requiring IV antibiotics, admitted to for greater than 3 hours daily rehabilitation, strengthening, intravenous antibiotics, prior to discharge home with . * Debility - PT/OT. * Pain - Tylenol 1000MG Q8H, Oxycodone 5MG Q4H PRN pain (4-10). * Bowel - Colace 200MG BID PRN, MOM 30ML PO PRN, Miralax 17GM daily PRN, Senna/colace 2 tablets BID, Dulcolax 10MG [place] daily PRN. * DVT prophylaxis - Lovenox 40MG SC daily. * Hypertension - Atenolol 50MG daily, Amlodipine 5MG daily. * E. casseliflavus bacteremia - Ampicillin 2GM IV Q6H thru 06/12/2020. * Stroke - Aspirin 81MG daily, Plavix 75MG daily. * Hyperlipidemia - Atorvastatin 20MG QHS. * Nutrition - Ensure 120ML 4x/day. * Vitamin D deficiency - D2 50,000 units per week. * Indigestion - Mylanta II 30ML Q4H PRN. * Skin irritation - Calmoseptine 4x/day. * Tinea Corporis - Nystatin Powder topical BID. * Rash - Hytone 2.5% cream BID, rash improved.
--- NOTE | 2020-06-06 10:17 | NURSING ---
Holli, wound nurse, came to see patient at this time. wound nurse recommends continuation of nystatin powder and misty to buttocks. pt tolerated standing with staff well. pt repositioned in chair after consult. polar care applied to hip, PA attached and call light within reach. will continue to monitor buttocks. pt denies further needs at this time.
--- NOTE | 2020-06-06 10:26 | NURSING ---
wound photo: buttocks
[2020-06-06 12:55] VITALS: BMI 29.0
[2020-06-06 17:00] VITALS: O2SAT 93
[2020-06-06 19:13] VITALS: BP 102/58; PULSE 64; RESP 16; TEMP 36.9; O2SAT 97
[2020-06-06] MEDS: Atorvastatin Calcium 20 MG Tablet PO (20:04)
[2020-06-06 20:15] VITALS: BMI 29.0
[2020-06-06 20:18] VITALS: RESP 16
[2020-06-07] MEDS: Enoxaparin 40 MG/0.4 ML Syringe SC (05:41)
[2020-06-07] MEDS: Nystatin Powder 15gm Bottle 1 APPLIC TOPICAL ×2 (05:42→20:59)
[2020-06-07] MEDS: Acetaminophen 500 MG Tablet 1000 MG PO ×3 (05:43→20:59)
[2020-06-07] MEDS: Aspirin E.C. 81 MG Tablet PO (07:58)
[2020-06-07] MEDS: amLODIPine 5 MG Tablet PO (07:58)
[2020-06-07] MEDS: Clopidogrel Bisulfate 75 MG Tablet PO (07:58)
[2020-06-07] MEDS: Atenolol 50 MG Tablet PO (07:58)
[2020-06-07] MEDS: Hydrocortisone 2.5% Crm 1 APPLIC TOPICAL ×2 (08:03→20:59)
[2020-06-07] MEDS: Menthol/Lanolin/Calamine/Znox 113 GM Tube 1 APPLIC TOPICAL ×4 (08:03→20:58)
--- NOTE | 2020-06-07 08:15 | PCM.PROGNOTE ---
Patient Problems: Active and Suspected Problems Debility (Acute) Fall (Acute) Closed left hip fracture (Acute) Subjective: Patient seen in room, lying in bed. He has no complaints, he does miss his family but his visits regularly. - Physical Exam Vitals/I&O's: Vital Signs Temp Pulse Resp BP Pulse Ox 98.5 F 64 16 102/58 L 97 06/06/20 19:13 06/06/20 19:13 06/06/20 20:18 06/06/20 19:13 06/06/20 19:13 Oxygen Delivery Method Room Air Weight: 90.9 kg Body Mass Index (BMI) 29.0 Finger Stick Blood Glucose 90 Intake and Output for Last 24 Hours 06/05/20 06/06/20 06/07/20 23:59 23:59 23:59 Intake Total 1567.92 / 1567.92 820 / 820 980 / 980 Output Total 1050 / 1050 825 / 825 500 / 500 Balance 517.92 / 517.92 -5 / -5 480 / 480 General: Alert, Oriented x3, Cooperative HEENT: Atraumatic, PERRLA, EOMI, Normocephalic Neck: Supple, No JVD, Negative Carotid Bruits Lungs: Clear to auscultation, Normal air movement Cardiovascular: Regular rate, No murmurs Abdomen: Bowel Sounds Present, Soft, Non Tender Extremities: No edema, Capillary Refill Less than 3 Seconds Skin: No rashes, No breakdown Musculoskeletal: No Tenderness to Palpation of Joints or Extremities Neurological: Cranial nerves II-XII grossly intact Psych/Mental Status: Normal Affect, Appropriate Current Medications Acetaminophen (Tylenol) 1,000 mg PO Q8 [facility] Last Admin: 06/07/20 05:43 Dose: 1,000 mg Documented by: Al Hydroxide/Mg Hydroxide (Mylanta Ii) 30 ml PO Q4H PRN PRN PRN Reason: HEARTBURN Amlodipine Besylate (Norvasc) 5 mg PO DAILY [facility] Last Admin: 06/07/20 07:58 Dose: 5 mg Documented by: Aspirin (Ecotrin) 81 mg PO DAILY [facility] Last Admin: 06/07/20 07:58 Dose: 81 mg Documented by: Atenolol (Tenormin (Beta Sena)) 50 mg PO DAILY [facility] Last Admin: 06/07/20 07:58 Dose: 50 mg Documented by: Atorvastatin Calcium (Lipitor) 20 mg PO QHS [facility] Last Admin: 06/06/20 20:04 Dose: 20 mg Documented by: Bisacodyl (Dulcolax) 10 mg RECTAL .PRN X 1 PRN PRN Reason: Constipation Calamine/Phenol (Calmoseptine Ointment) 1 applic TOPICAL 4X/DAY [facility]; Protocol Last Admin: 06/07/20 08:03 Dose: 1 applicatio Documented by: Clopidogrel Bisulfate (Plavix) 75 mg PO DAILY [facility] Last Admin: 06/07/20 07:58 Dose: 75 mg Documented by: Docusate Sodium (Colace) 200 mg PO BID PRN PRN PRN Reason: Constipation Enoxaparin Sodium (Lovenox) 40 mg SC DAILY@0600 [facility] Stop: 07/03/20 06:05 Last Admin: 06/07/20 05:41 Dose: 40 mg Documented by: Ergocalciferol (Vitamin D) 50,000 unit PO Tu [facility] Last Admin: 06/06/20 07:34 Dose: 50,000 unit Documented by: Heparin Sodium (Beef Lung) () 50 units IV UD PRN PRN Reason: PICC Line Heparin Flush Hydrocortisone (Hytone) 1 applic TOPICAL BID [facility]; Protocol Last Admin: 06/07/20 08:03 Dose: 1 applicatio Documented by: Ampicillin Sodium 2 gm/ Sodium (Chloride) 100 mls @ 200 mls/hr IV Q6 [facility] Stop: 06/12/20 12:29 Last Infusion: 06/07/20 06:54 Dose: Infused Documented by: Sodium Chloride () 250 mls @ 15 mls/hr IV .[id number] PRN PRN Reason: Saline Flush Last Infusion: 06/07/20 06:55 Dose: 0 mls/hr Documented by: Sodium Chloride () 250 mls @ 15 mls/hr IV .[id number] PRN PRN Reason: Additional IVPB Infusion Magnesium Hydroxide (Milk Of Magnesia) 30 ml PO .PRN X 1 PRN PRN Reason: Constipation Nystatin (Mycostatin Powder) 1 applic TOPICAL BID@0600,2200 [facility]; Protocol Last Admin: 06/07/20 05:42 Dose: 1 applicatio Documented by: Oxycodone HCl (Oxyir) 5 mg PO Q4H PRN PRN PRN Reason: Pain Score 4-10/10 Last Admin: 06/06/20 11:46 Dose: 5 mg Documented by: Polyethylene Glycol (Miralax) 17 gm PO DAILY PRN PRN PRN Reason: Constipation Senna/Docusate Sodium (Senokot-S, Anum-Colace) 2 tablet PO BID [facility] Last Admin: 06/07/20 08:04 Dose: Not Given Documented by: Sodium Chloride () 10 - 40 ml IV UD PRN PRN Reason: Open End PICC Flush Last Admin: 06/06/20 23:22 Dose: 10 ml Documented by: Sodium Chloride (0.9% Nacl (Sterile) Posiflush) 10 - 40 ml IV UD PRN PRN Reason: Port access or dressing change Capacity - Capacity Assessment Tool Can the patient make a choice & communicate that choice?: Yes Can the patient understand benefits, risks and alternatives?: Yes Can the patient make a logical, rational choice?: Yes Is the choice the patient makes consistent w/ their values?: Yes Is there an impending, emergent risk to the patient?: No Does the patient have an Advance Directive?: No Is there a Surrogate Available?: Yes i.e. HCPOA: Yes i.e. close relative (spouse, child, parent, sibling)?: Yes Medical Necessity - Tobacco Use Smoking Status: Former smoker Tobacco Use: Non-smoker Assessment/Plan All Active Problems Bacteremia (Acute) Debility (Acute) Fall (Acute) Closed left hip fracture (Acute) 80 year old male with below past medical history hospitalized for left hip fracture, underwent left hip cephalo-medullary nail fixation 06/02/[address] Berman, complicated by E. Casseliflavus bacteremia requiring IV antibiotics, admitted to for greater than 3 hours daily rehabilitation, strengthening, intravenous antibiotics, prior to discharge home with . Debility - PT/OT. Pain - Tylenol 1000MG Q8H, Oxycodone 5MG Q4H PRN pain (4-10). Bowel - Colace 200MG BID PRN, MOM 30ML PO PRN, Miralax 17GM daily PRN, Senna/colace 2 tablets BID, Dulcolax 10MG [place] daily PRN. DVT prophylaxis - Lovenox 40MG SC daily. Hypertension - Atenolol 50MG daily, Amlodipine 5MG daily. E. casseliflavus bacteremia - Ampicillin 2GM IV Q6H thru 06/12/2020. Stroke - Aspirin 81MG daily, Plavix 75MG daily. Hyperlipidemia - Atorvastatin 20MG QHS. Nutrition - Ensure 120ML 4x/day. Vitamin D deficiency - D2 50,000 units per week. Indigestion - Mylanta II 30ML Q4H PRN. Skin irritation - Calmoseptine 4x/day. Tinea Corporis - Nystatin Powder topical BID. Rash - Hytone 2.5% cream BID, rash improved.
[2020-06-07 08:17] VITALS: BP 114/65; PULSE 71; RESP 16; TEMP 36.9; O2SAT 94
[2020-06-07 09:20] VITALS: BMI 29.0
[2020-06-07] MEDS: oxyCODONE 5 MG Tablet PO ×2 (13:06→20:59)
[2020-06-07] MEDS: 0.9% Saline Lock 10 ML Syringe IV (17:54)
[2020-06-07] MEDS: Atorvastatin Calcium 20 MG Tablet PO (20:59)
[2020-06-07 21:42] VITALS: BP 109/68; PULSE 59; RESP 16; TEMP 36.3; O2SAT 95
[2020-06-08 03:17] VITALS: BMI 29.0
[2020-06-08] MEDS: Acetaminophen 500 MG Tablet 1000 MG PO ×3 (05:51→20:42)
[2020-06-08] MEDS: Enoxaparin 40 MG/0.4 ML Syringe SC (05:51)
[2020-06-08] MEDS: oxyCODONE 5 MG Tablet PO ×3 (05:51→18:34)
[2020-06-08] MEDS: Nystatin Powder 15gm Bottle 1 APPLIC TOPICAL ×2 (05:52→20:31)
[2020-06-08 08:00] VITALS: BP 134/68; PULSE 62; RESP 18; TEMP 36.4; O2SAT 94
[2020-06-08] MEDS: Atenolol 50 MG Tablet PO (08:56)
[2020-06-08] MEDS: Clopidogrel Bisulfate 75 MG Tablet PO (08:56)
[2020-06-08] MEDS: amLODIPine 5 MG Tablet PO (08:56)
[2020-06-08] MEDS: Aspirin E.C. 81 MG Tablet PO (08:56)
[2020-06-08] MEDS: Hydrocortisone 2.5% Crm 1 APPLIC TOPICAL ×2 (08:57→20:32)
[2020-06-08] MEDS: Menthol/Lanolin/Calamine/Znox 113 GM Tube 1 APPLIC TOPICAL ×4 (08:57→20:31)
--- NOTE | 2020-06-08 09:12 | CASEMGMT ---
Social Work IDT met with patient and for Team meeting. Discussed patient's progress in therapy. Pt is [place] for transfers, PT recommending right AFO to assist with ambulating - gave info to to purchase. Pt is min for bed mobility, initial stand has Troy padilla with cues for shower tx, modA for bathing, set up for UE dressing, [place] for LE dressing using adaptive equipment with cues. Rash improving. On IV ATB for infection. Explained Medicare coverage with approved days 17 - 06/21. Will ReTeam next week. Will continue to follow. KELI Greenwood BUSINESS INTELLIGENCE ARCHITECT
[2020-06-08 09:37] VITALS: BMI 29.0
[2020-06-08] MEDS: 0.9% Saline Lock 10 ML Syringe IV ×2 (11:59→18:23)
[2020-06-08 18:53] VITALS: BP 123/72; PULSE 63; RESP 18; TEMP 36.5; O2SAT 97
[2020-06-08] MEDS: Atorvastatin Calcium 20 MG Tablet PO (20:31)
--- NOTE | 2020-06-08 20:43 | PN_ITS ---
Patient Problems: Active and Suspected Problems Debility (Acute) Fall (Acute) Closed left hip fracture (Acute) Subjective: Patient seen on Team Rounds. His is present today. Bubba is progressing with therapy, we talked about having his teeth pulled when he leaves Rehab. Teeth probable source of bacteremia. We discussed the importance of Bubba staying to finish therapy prior to going home so he will not be too much work for his who recently had left total hip replacement. - Physical Exam Vitals/I&O's: Vital Signs Temp Pulse Resp BP Pulse Ox 97.7 F L 63 18 123/72 H 97 06/08/20 18:53 06/08/20 18:53 06/08/20 18:53 06/08/20 18:53 06/08/20 18:53 Oxygen Delivery Method Room Air Weight: 91.6 kg Body Mass Index (BMI) 29.0 Finger Stick Blood Glucose 90 Intake and Output for Last 24 Hours 06/06/20 06/07/20 06/08/20 23:59 23:59 23:59 Intake Total 820 / 820 2120 / 2120 1299.0 / 1299.0 Output Total 825 / 825 1800 / 1800 250 / 250 Balance -5 / -5 320 / 320 1049.0 / 1049.0 General: Alert, Oriented x3, Cooperative HEENT: Atraumatic, PERRLA, EOMI, Normocephalic Neck: Supple, No JVD, Negative Carotid Bruits Lungs: Clear to auscultation, Normal air movement Cardiovascular: Regular rate, No murmurs Abdomen: Bowel Sounds Present, Soft, Non Tender Extremities: No edema, Capillary Refill Less than 3 Seconds Skin: No rashes, No breakdown Musculoskeletal: No Tenderness to Palpation of Joints or Extremities Neurological: Cranial nerves II-XII grossly intact Psych/Mental Status: Normal Affect, Appropriate Current Medications Acetaminophen (Tylenol) 1,000 mg PO Q8 [facility] Last Admin: 06/08/20 20:42 Dose: 1,000 mg Documented by: Al Hydroxide/Mg Hydroxide (Mylanta Ii) 30 ml PO Q4H PRN PRN PRN Reason: HEARTBURN Amlodipine Besylate (Norvasc) 5 mg PO DAILY [facility] Last Admin: 06/08/20 08:56 Dose: 5 mg Documented by: Aspirin (Ecotrin) 81 mg PO DAILY [facility] Last Admin: 06/08/20 08:56 Dose: 81 mg Documented by: Atenolol (Tenormin (Beta Sena)) 50 mg PO DAILY [facility] Last Admin: 06/08/20 08:56 Dose: 50 mg Documented by: Atorvastatin Calcium (Lipitor) 20 mg PO QHS [facility] Last Admin: 06/08/20 20:31 Dose: 20 mg Documented by: Bisacodyl (Dulcolax) 10 mg RECTAL .PRN X 1 PRN PRN Reason: Constipation Calamine/Phenol (Calmoseptine Ointment) 1 applic TOPICAL 4X/DAY [facility]; Protocol Last Admin: 06/08/20 20:31 Dose: 1 applicatio Documented by: Clopidogrel Bisulfate (Plavix) 75 mg PO DAILY [facility] Last Admin: 06/08/20 08:56 Dose: 75 mg Documented by: Docusate Sodium (Colace) 200 mg PO BID PRN PRN PRN Reason: Constipation Enoxaparin Sodium (Lovenox) 40 mg SC DAILY@0600 [facility] Stop: 07/03/20 06:05 Last Admin: 06/08/20 05:51 Dose: 40 mg Documented by: Ergocalciferol (Vitamin D) 50,000 unit PO Tu [facility] Last Admin: 06/06/20 07:34 Dose: 50,000 unit Documented by: Heparin Sodium (Beef Lung) () 50 units IV UD PRN PRN Reason: PICC Line Heparin Flush Hydrocortisone (Hytone) 1 applic TOPICAL BID [facility]; Protocol Last Admin: 06/08/20 20:32 Dose: 1 applicatio Documented by: Ampicillin Sodium 2 gm/ Sodium (Chloride) 100 mls @ 200 mls/hr IV Q6 [facility] Stop: 06/12/20 12:29 Last Infusion: 06/08/20 18:54 Dose: Infused Documented by: Sodium Chloride () 250 mls @ 15 mls/hr IV .[id number] PRN PRN Reason: Saline Flush Last Infusion: 06/08/20 19:21 Dose: 0 mls/hr Documented by: Sodium Chloride () 250 mls @ 15 mls/hr IV .[id number] PRN PRN Reason: Additional IVPB Infusion Magnesium Hydroxide (Milk Of Magnesia) 30 ml PO .PRN X 1 PRN PRN Reason: Constipation Nystatin (Mycostatin Powder) 1 applic TOPICAL BID@0600,2200 [facility]; Protocol Last Admin: 06/08/20 20:31 Dose: 1 applicatio Documented by: Oxycodone HCl (Oxyir) 5 mg PO Q4H PRN PRN PRN Reason: Pain Score 4-10/10 Last Admin: 06/08/20 18:34 Dose: 5 mg Documented by: Polyethylene Glycol (Miralax) 17 gm PO DAILY PRN PRN PRN Reason: Constipation Senna/Docusate Sodium (Senokot-S, Anum-Colace) 2 tablet PO BID [facility] Last Admin: 06/08/20 20:25 Dose: Not Given Documented by: Sodium Chloride () 10 - 40 ml IV UD PRN PRN Reason: Open End PICC Flush Last Admin: 06/08/20 18:23 Dose: 10 ml Documented by: Sodium Chloride (0.9% Nacl (Sterile) Posiflush) 10 - 40 ml IV UD PRN PRN Reason: Port access or dressing change Capacity - Capacity Assessment Tool Can the patient make a choice & communicate that choice?: Yes Can the patient understand benefits, risks and alternatives?: Yes Can the patient make a logical, rational choice?: Yes Is the choice the patient makes consistent w/ their values?: Yes Is there an impending, emergent risk to the patient?: No Does the patient have an Advance Directive?: No Is there a Surrogate Available?: Yes i.e. HCPOA: Yes i.e. close relative (spouse, child, parent, sibling)?: Yes Medical Necessity - Tobacco Use Smoking Status: Former smoker Tobacco Use: Non-smoker Assessment/Plan All Active Problems Bacteremia (Acute) Debility (Acute) Fall (Acute) Closed left hip fracture (Acute) 80 year old male with below past medical history hospitalized for left hip fracture, underwent left hip cephalo-medullary nail fixation 06/02/[address] Berman, complicated by E. Casseliflavus bacteremia requiring IV antibiotics, admitted to for greater than 3 hours daily rehabilitation, strengthening, intravenous antibiotics, prior to discharge home with . * Debility - PT/OT. * Pain - Tylenol 1000MG Q8H, Oxycodone 5MG Q4H PRN pain (4-10). * Bowel - Colace 200MG BID PRN, MOM 30ML PO PRN, Miralax 17GM daily PRN, Senna/colace 2 tablets BID, Dulcolax 10MG [place] daily PRN. * DVT prophylaxis - Lovenox 40MG SC daily. * Hypertension - Atenolol 50MG daily, Amlodipine 5MG daily. * E. casseliflavus bacteremia - Ampicillin 2GM IV Q6H thru 06/12/2020. * Stroke - Aspirin 81MG daily, Plavix 75MG daily. * Hyperlipidemia - Atorvastatin 20MG QHS. * Nutrition - Ensure 120ML 4x/day. * Vitamin D deficiency - D2 50,000 units per week. * Indigestion - Mylanta II 30ML Q4H PRN. * Skin irritation - Calmoseptine 4x/day. * Tinea Corporis - Nystatin Powder topical BID. * Rash - Hytone 2.5% cream BID, rash improved.
[2020-06-09] MEDS: 0.9% Saline Lock 10 ML Syringe IV ×3 (00:14→18:18)
[2020-06-09 01:09] VITALS: BMI 29.0
[2020-06-09] MEDS: oxyCODONE 5 MG Tablet PO ×3 (05:23→17:32)
[2020-06-09] MEDS: Enoxaparin 40 MG/0.4 ML Syringe SC (05:24)
[2020-06-09] MEDS: Acetaminophen 500 MG Tablet 1000 MG PO ×3 (05:24→20:13)
[2020-06-09] MEDS: Nystatin Powder 15gm Bottle 1 APPLIC TOPICAL ×2 (05:25→20:14)
[2020-06-09 07:26] VITALS: BP 116/69; PULSE 75; RESP 18; TEMP 36.6; O2SAT 95
[2020-06-09] MEDS: Aspirin E.C. 81 MG Tablet PO (08:41)
[2020-06-09] MEDS: amLODIPine 5 MG Tablet PO (08:41)
[2020-06-09] MEDS: Clopidogrel Bisulfate 75 MG Tablet PO (08:41)
[2020-06-09] MEDS: Atenolol 50 MG Tablet PO (08:41)
[2020-06-09] MEDS: Hydrocortisone 2.5% Crm 1 APPLIC TOPICAL ×2 (08:42→20:14)
[2020-06-09] MEDS: Menthol/Lanolin/Calamine/Znox 113 GM Tube 1 APPLIC TOPICAL ×4 (08:42→20:14)
[2020-06-09 13:46] VITALS: BMI 29.0
[2020-06-09] MEDS: Atorvastatin Calcium 20 MG Tablet PO (20:14)
[2020-06-09] MEDS: Senna/Docusate Sodium 1 Tablet 2 TABLET PO (20:14)
[2020-06-09 21:11] VITALS: BP 125/65; PULSE 53; RESP 18; TEMP 36.8; O2SAT 97
[2020-06-09 21:13] VITALS: RESP 18
[2020-06-10 00:12] VITALS: BMI 29.0
[2020-06-10] MEDS: 0.9% Saline Lock 10 ML Syringe IV ×4 (00:29→17:46)
[2020-06-10] MEDS: Nystatin Powder 15gm Bottle 1 APPLIC TOPICAL ×2 (05:00→19:50)
[2020-06-10] MEDS: Enoxaparin 40 MG/0.4 ML Syringe SC (05:01)
[2020-06-10] MEDS: Acetaminophen 500 MG Tablet 1000 MG PO ×3 (05:01→22:42)
[2020-06-10] MEDS: Menthol/Lanolin/Calamine/Znox 113 GM Tube 1 APPLIC TOPICAL ×4 (05:01→19:48)
[2020-06-10] MEDS: oxyCODONE 5 MG Tablet PO ×2 (05:01→11:46)
[2020-06-10] MEDS: Aspirin E.C. 81 MG Tablet PO (07:54)
[2020-06-10] MEDS: Senna/Docusate Sodium 1 Tablet 2 TABLET PO (07:55)
[2020-06-10] MEDS: Clopidogrel Bisulfate 75 MG Tablet PO (07:55)
[2020-06-10] MEDS: Atenolol 50 MG Tablet PO (07:55)
[2020-06-10] MEDS: amLODIPine 5 MG Tablet PO (07:55)
[2020-06-10] MEDS: Hydrocortisone 2.5% Crm 1 APPLIC TOPICAL ×2 (07:56→19:49)
[2020-06-10 07:57] VITALS: BP 119/54; PULSE 59; RESP 18; TEMP 36.9; O2SAT 94
[2020-06-10 10:56] VITALS: BMI 29.0
[2020-06-10 18:57] VITALS: BP 120/57; PULSE 71; RESP 16; TEMP 36.6; O2SAT 94
[2020-06-10 19:36] VITALS: BMI 29.0
[2020-06-10] MEDS: Atorvastatin Calcium 20 MG Tablet PO (19:49)
[2020-06-10 22:00] VITALS: PULSE 63; RESP 17
[2020-06-11] MEDS: 0.9% Saline Lock 10 ML Syringe IV ×3 (00:10→12:45)
[2020-06-11] MEDS: Acetaminophen 500 MG Tablet 1000 MG PO ×3 (05:44→20:13)
[2020-06-11] MEDS: oxyCODONE 5 MG Tablet PO ×4 (05:47→23:52)
[2020-06-11] MEDS: Enoxaparin 40 MG/0.4 ML Syringe SC (05:48)
[2020-06-11] MEDS: Nystatin Powder 15gm Bottle 1 APPLIC TOPICAL ×2 (05:48→20:16)
--- NOTE | 2020-06-11 05:59 | NURSING ---
Pt refused Teds this a.m. and asked if they could be put on later in the morning. Pt states he understands the purpose but it makes his legs itch. Pt is agreeable to have them put on later.
[2020-06-11] MEDS: Aspirin E.C. 81 MG Tablet PO (07:22)
[2020-06-11] MEDS: amLODIPine 5 MG Tablet PO (07:22)
[2020-06-11] MEDS: Clopidogrel Bisulfate 75 MG Tablet PO (07:23)
[2020-06-11] MEDS: Senna/Docusate Sodium 1 Tablet 2 TABLET PO (07:23)
[2020-06-11] MEDS: Atenolol 50 MG Tablet PO (07:23)
[2020-06-11] MEDS: Hydrocortisone 2.5% Crm 1 APPLIC TOPICAL ×2 (07:25→20:15)
[2020-06-11] MEDS: Menthol/Lanolin/Calamine/Znox 113 GM Tube 1 APPLIC TOPICAL ×4 (07:25→20:14)
[2020-06-11 07:26] VITALS: BP 130/82; PULSE 68; RESP 16; TEMP 36.6; O2SAT 98
[2020-06-11 11:09] VITALS: BMI 29.0
[2020-06-11 20:09] VITALS: BP 137/69; PULSE 59; RESP 18; TEMP 36.4; O2SAT 97
[2020-06-11] MEDS: Atorvastatin Calcium 20 MG Tablet PO (20:12)
[2020-06-11 23:30] VITALS: BMI 29.0
[2020-06-12] MEDS: 0.9% Saline Lock 10 ML Syringe IV ×2 (05:41→12:26)
[2020-06-12] MEDS: Acetaminophen 500 MG Tablet 1000 MG PO ×3 (05:41→20:17)
[2020-06-12] MEDS: oxyCODONE 5 MG Tablet PO ×4 (05:41→20:18)
[2020-06-12] MEDS: Nystatin Powder 15gm Bottle 1 APPLIC TOPICAL ×2 (05:41→20:22)
[2020-06-12] MEDS: Enoxaparin 40 MG/0.4 ML Syringe SC (05:42)
[2020-06-12 06:14] LABS: Hematocrit 35.6 % (40-54); Hemoglobin 11.6 g/dL (13.0-16.5); Mean Corp Hgb Conc 32.6 g/dL (32-36); Mean Corpuscular Hgb 31.1 pg (27.0-32.0); Mean Corpuscular Volume 95.4 fL (80-94); Mean Platelet Vol. 7.7 fl (6.2-12.0); Platelet Count 274 K/mm3 (150-450); RBC Distribution Width CV 14.1 % (11.6-14.6); RBC Distribution Width SD 47.4 fl (35.1-43.9); Red Blood Count 3.73 M/mm3 (4.6-6.2); White Blood Count 8.4 K/mm3 (4.4-11.0)
[2020-06-12 06:42] LABS: Anion Gap 7 (5-15); BUN 14 mg/dL (7-18); BUN/Creat Ratio 23.3 RATIO (10-20); Calcium,Total 8.8 mg/dL (8.5-10.1); Chloride 107 mmol/L (98-107); EST Glomerular Filtration Rate 137 mL/min (>60); Est Glom Filt Rate - Afr Amer 166 mL/min (>60); Estimated Creatinine Clearance 57.93 ml/min; Glucose 102 mg/dL (74-106); Potassium 3.8 mmol/L (3.5-5.1); Sodium Level 139 mmol/L (136-145)
[2020-06-12 08:33] VITALS: BP 136/83; PULSE 61; RESP 20; TEMP 36.8; O2SAT 97
[2020-06-12] MEDS: Hydrocortisone 2.5% Crm 1 APPLIC TOPICAL ×2 (09:11→20:19)
[2020-06-12] MEDS: amLODIPine 5 MG Tablet PO (09:12)
[2020-06-12] MEDS: Clopidogrel Bisulfate 75 MG Tablet PO (09:12)
[2020-06-12] MEDS: Senna/Docusate Sodium 1 Tablet 2 TABLET PO ×2 (09:12→20:18)
[2020-06-12] MEDS: Aspirin E.C. 81 MG Tablet PO (09:12)
[2020-06-12] MEDS: Atenolol 50 MG Tablet PO (09:13)
[2020-06-12] MEDS: Menthol/Lanolin/Calamine/Znox 113 GM Tube 1 APPLIC TOPICAL ×4 (09:28→20:22)
[2020-06-12 11:43] VITALS: BMI 29.0
[2020-06-12 19:40] VITALS: BP 100/56; PULSE 61; RESP 18; TEMP 37.1; O2SAT 95
[2020-06-12] MEDS: Atorvastatin Calcium 20 MG Tablet PO (20:17)
[2020-06-13] MEDS: Enoxaparin 40 MG/0.4 ML Syringe SC (05:49)
[2020-06-13] MEDS: Acetaminophen 500 MG Tablet 1000 MG PO ×3 (05:49→20:38)
[2020-06-13] MEDS: 0.9% Saline Lock 10 ML Syringe IV ×2 (05:50→14:00)
[2020-06-13] MEDS: oxyCODONE 5 MG Tablet PO ×4 (05:52→20:43)
[2020-06-13] MEDS: Nystatin Powder 15gm Bottle 1 APPLIC TOPICAL ×2 (05:54→20:41)
[2020-06-13 07:19] VITALS: BP 156/85; PULSE 81; RESP 18; TEMP 36.7; O2SAT 96
[2020-06-13] MEDS: Hydrocortisone 2.5% Crm 1 APPLIC TOPICAL ×2 (08:35→20:40)
[2020-06-13] MEDS: Menthol/Lanolin/Calamine/Znox 113 GM Tube 1 APPLIC TOPICAL ×4 (08:37→20:41)
[2020-06-13] MEDS: Aspirin E.C. 81 MG Tablet PO (08:38)
[2020-06-13] MEDS: amLODIPine 5 MG Tablet PO (08:38)
[2020-06-13] MEDS: Clopidogrel Bisulfate 75 MG Tablet PO (08:38)
[2020-06-13] MEDS: Atenolol 50 MG Tablet PO (08:39)
[2020-06-13] MEDS: Senna/Docusate Sodium 1 Tablet 2 TABLET PO ×2 (08:39→20:38)
[2020-06-13 10:08] VITALS: BMI 29.0
[2020-06-13 19:46] VITALS: BP 120/68; PULSE 56; RESP 17; TEMP 36.4; O2SAT 96
[2020-06-13] MEDS: Atorvastatin Calcium 20 MG Tablet PO (20:38)
[2020-06-13 23:48] VITALS: BMI 29.0
[2020-06-14] MEDS: oxyCODONE 5 MG Tablet PO ×2 (06:08→12:59)
[2020-06-14] MEDS: Acetaminophen 500 MG Tablet 1000 MG PO ×3 (06:08→22:31)
[2020-06-14] MEDS: Enoxaparin 40 MG/0.4 ML Syringe SC (06:08)
[2020-06-14] MEDS: Nystatin Powder 15gm Bottle 1 APPLIC TOPICAL ×2 (06:08→22:31)
[2020-06-14 09:06] VITALS: BP 127/68; PULSE 63; RESP 18; TEMP 36.7; O2SAT 96
[2020-06-14] MEDS: Aspirin E.C. 81 MG Tablet PO (09:25)
[2020-06-14] MEDS: Senna/Docusate Sodium 1 Tablet 2 TABLET PO (09:26)
[2020-06-14] MEDS: amLODIPine 5 MG Tablet PO (09:26)
[2020-06-14] MEDS: Atenolol 50 MG Tablet PO (09:26)
[2020-06-14] MEDS: Clopidogrel Bisulfate 75 MG Tablet PO (09:26)
[2020-06-14 12:21] VITALS: BMI 29.0
--- NOTE | 2020-06-14 14:49 | PCM.PN.ID ---
Patient Problems: Active and Suspected Problems Debility (Acute) Fall (Acute) Closed left hip fracture (Acute) Subjective: Feeling better, wants to go home. No fever. Hip improving. No dental pain/swelling/drainage. - Physical Exam Vitals/I&O's: Vital Signs Temp Pulse Resp BP Pulse Ox 98.0 F 63 18 127/68 H 96 06/14/20 09:06 06/14/20 09:06 06/14/20 09:06 06/14/20 09:06 06/14/20 09:06 Oxygen Flow Rate (L/min) 96 Oxygen Delivery Method Room Air Weight: 88.7 kg Body Mass Index (BMI) 29.0 Finger Stick Blood Glucose 90 Intake and Output for Last 24 Hours 06/12/20 06/13/20 06/14/20 23:59 23:59 23:59 Intake Total 1853.25 / 1853.25 1460 / 1460 480 / 480 Output Total 100 / 100 Balance 1753.25 / 1753.25 1460 / 1460 480 / 480 General: Alert, Cooperative, No apparent distress HEENT: - - multiple rotted teeth Lungs: Clear to auscultation, Normal air movement Cardiovascular: Regular rate, Regular Rhythm Abdomen: Soft, Non Tender, Non-Distended Current Medications Acetaminophen (Tylenol) 1,000 mg PO Q8 [facility] Last Admin: 06/14/20 13:49 Dose: 1,000 mg Documented by: Al Hydroxide/Mg Hydroxide (Mylanta Ii) 30 ml PO Q4H PRN PRN PRN Reason: HEARTBURN Amlodipine Besylate (Norvasc) 5 mg PO DAILY [facility] Last Admin: 06/14/20 09:26 Dose: 5 mg Documented by: Aspirin (Ecotrin) 81 mg PO DAILY [facility] Last Admin: 06/14/20 09:25 Dose: 81 mg Documented by: Atenolol (Tenormin (Beta Sena)) 50 mg PO DAILY [facility] Last Admin: 06/14/20 09:26 Dose: 50 mg Documented by: Atorvastatin Calcium (Lipitor) 20 mg PO QHS [facility] Last Admin: 06/13/20 20:38 Dose: 20 mg Documented by: Bisacodyl (Dulcolax) 10 mg RECTAL .PRN X 1 PRN PRN Reason: Constipation Calamine/Phenol (Calmoseptine Ointment) 1 applic TOPICAL 4X/DAY [facility]; Protocol Last Admin: 06/14/20 13:49 Dose: Not Given Documented by: Clopidogrel Bisulfate (Plavix) 75 mg PO DAILY [facility] Last Admin: 06/14/20 09:26 Dose: 75 mg Documented by: Docusate Sodium (Colace) 200 mg PO BID PRN PRN PRN Reason: Constipation Enoxaparin Sodium (Lovenox) 40 mg SC DAILY@0600 [facility] Stop: 07/03/20 06:05 Last Admin: 06/14/20 06:08 Dose: 40 mg Documented by: Ergocalciferol (Vitamin D) 50,000 unit PO Tu [facility] Last Admin: 06/13/20 08:38 Dose: 50,000 unit Documented by: Heparin Sodium (Beef Lung) () 50 units IV UD PRN PRN Reason: PICC Line Heparin Flush Hydrocortisone (Hytone) 1 applic TOPICAL BID [facility]; Protocol Last Admin: 06/14/20 09:31 Dose: Not Given Documented by: Sodium Chloride () 250 mls @ 15 mls/hr IV .[id number] PRN PRN Reason: Saline Flush Last Infusion: 06/13/20 08:24 Dose: Infused Documented by: Sodium Chloride () 250 mls @ 15 mls/hr IV .[id number] PRN PRN Reason: Additional IVPB Infusion Last Infusion: 06/09/20 21:19 Dose: Infused Documented by: Magnesium Hydroxide (Milk Of Magnesia) 30 ml PO .PRN X 1 PRN PRN Reason: Constipation Nystatin (Mycostatin Powder) 1 applic TOPICAL BID@0600,2200 [facility]; Protocol Last Admin: 06/14/20 06:08 Dose: 1 applicatio Documented by: Oxycodone HCl (Oxyir) 5 mg PO Q4H PRN PRN PRN Reason: Pain Score 4-10/10 Last Admin: 06/14/20 12:59 Dose: 5 mg Documented by: Oxycodone HCl (Oxyir) 5 mg PO DAILY@0600 [facility] Last Admin: 06/14/20 06:08 Dose: 5 mg Documented by: Polyethylene Glycol (Miralax) 17 gm PO DAILY PRN PRN PRN Reason: Constipation Senna/Docusate Sodium (Senokot-S, Anum-Colace) 2 tablet PO BID [facility] Last Admin: 06/14/20 09:26 Dose: 2 tablet Documented by: Sodium Chloride () 10 - 40 ml IV UD PRN PRN Reason: Open End PICC Flush Last Admin: 06/13/20 14:00 Dose: 10 ml Documented by: Sodium Chloride (0.9% Nacl (Sterile) Posiflush) 10 - 40 ml IV UD PRN PRN Reason: Port access or dressing change Medical Necessity - Tobacco Use Smoking Status: Former smoker Tobacco Use: Non-smoker Route of nutrition/ use of supplements: [] Nutritional Intake: [] IV Site: [] Ribeiro Catheter: [] - Assessment/Plan Antibiotics: [] Assessment/Plan: [] Active and Suspected Problems Debility (Acute) Fall (Acute) Closed left hip fracture (Acute) Completed 2 week total course of iv amp for enterococcal bacteremia. No signs of active dental infection. Recommend 2gm dose of po amoxicillin 30 minutes prior to dental appt for extraction. Will follow as needed, please call with any new issues.
--- NOTE | 2020-06-14 14:53 | NURSING ---
wound photo: bilateral buttocks
[2020-06-14] MEDS: Menthol/Lanolin/Calamine/Znox 113 GM Tube 1 APPLIC TOPICAL ×2 (18:10→22:31)
[2020-06-14 19:20] VITALS: BP 117/63; PULSE 64; RESP 16; TEMP 36.6; O2SAT 93
[2020-06-14] MEDS: 0.9% Saline Lock 10 ML Syringe IV (22:31)
[2020-06-14] MEDS: Atorvastatin Calcium 20 MG Tablet PO (22:31)
[2020-06-14] MEDS: Hydrocortisone 2.5% Crm 1 APPLIC TOPICAL (22:32)
[2020-06-15] MEDS: Enoxaparin 40 MG/0.4 ML Syringe SC (06:23)
[2020-06-15] MEDS: Acetaminophen 500 MG Tablet 1000 MG PO ×3 (06:23→21:32)
[2020-06-15] MEDS: oxyCODONE 5 MG Tablet PO ×2 (06:23→11:58)
[2020-06-15] MEDS: Nystatin Powder 15gm Bottle 1 APPLIC TOPICAL ×2 (06:24→20:21)
[2020-06-15] MEDS: Clopidogrel Bisulfate 75 MG Tablet PO (07:35)
[2020-06-15] MEDS: Atenolol 50 MG Tablet PO (07:35)
[2020-06-15] MEDS: Aspirin E.C. 81 MG Tablet PO (07:35)
[2020-06-15] MEDS: amLODIPine 5 MG Tablet PO (07:35)
[2020-06-15 07:38] VITALS: BP 141/65; PULSE 67; RESP 16; TEMP 36.4; O2SAT 98
--- NOTE | 2020-06-15 10:33 | CASEMGMT ---
Addendum entered by Beverly Salcedo 06/15/20 11:42: Patient was active with [facility]. Referral cancelled to [facility]. Referral sent to [facility]. Original Note: Social Work IDT met with patient and for Team meeting. Discussed patient's progress in therapy. Pt is using bed rail for bed mobility, SBA for transfers, CGA to SBA for sit to stands, ambulating 100ft with FWW, completed steps at CGA, supervised for bathing, SBA for LE dressing due to balance. brought left AFO. Pt to use AFO in therapy and agreeable to DC 06/17. Referred to [facility] PT/OT/SN. No other DME needs. Plan: DC home with 06/17 with [facility] PT/OT/SN Beverly Salcedo, KELI RODRIGUEZW
--- NOTE | 2020-06-15 11:28 | PN_ITS ---
Progress Note Bubba was seen on team rounds today and his was present. She was able to bring the AFO for the LLE foot drop to the hospital today. Afebrile VSS Maintaining appropriate oxygen saturation on RA Oral intake is good Denies constipation and his last bowel movement was 06/14/2020. He is incontinent of urine at times and has some dribbling after urination. He is not on any medication for BPH. CT scan of the abdomen and pelvis done recently showed diffuse bladder wall thickening and prostatic enlargement. Incidentally there were multiple liver cysts present and a 1.5 cm x 1 cm calculus in the upper pole of the right kidney. Discussed with nursing - no problems that need addressed Reviewed the PT/OT notes Medication list reviewed. Patient states that his pain is adequately managed. He takes 1 oxycodone 5 mg every morning and usually takes 1 additional oxycodone at some point during the day. He denies shortness of breath but states that he occasionally has a dry cough. He denies chest pain, dysuria, abdominal pain, lightheadedness. Alert, oriented X 3, NAD,m sitting in the recliner at the bedside Lungs-diminished but clear to auscultation throughout Heart-regular rate and rhythm, no murmur, no gallop, no rub Abdomen-soft, nontender, nondistended, bowel sounds present Trace edema of the right ankle only No focal neurologic deficits Impressions 1. Comminuted left intertrochanteric hip fracture sustained on 05/23/2020- surgery was delayed until 06/02/2020 due to enterococcal bacteremia discovered at admission. Patient has received 2 weeks of intravenous antibiotics. 2. Status post cephalo-medullary fixation of the left hip on 07/03/[address] Berman. 3. Enterococcal bacteremia thought to be related to tooth decay 4. 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 He had stopped taking his medications 5. Mild macrocytic anemia-likely secondary to blood loss from recent surgery/hip fracture 6. Vitamin D insufficiency 7. Glucose intolerance with a hemoglobin A1c of 6.0% on 05/01/2020 8. Hypertension 9. Dyslipidemia 10. Suspected BPH Start Flomax 0.4 mg p.o. daily Request records from his primary care physician for last PSA on record Blood pressure is well controlled-we will continue current medication Plan on [place] home on 06/17/20 Start Flomax 0.4 mg daily. Bubba has completed 2 weeks of intravenous therapy for enterococcal bacteremia. This is presumed to be secondary to dental disease and he knows that he has to have several teeth pulled. I reviewed Dr. Brown's note from yesterday and he recommends 2 g of p.o. amoxicillin prior to dental extractions. STROKE Vital Signs/Narrative: Vital Signs Temp Pulse Resp BP Pulse Ox 06/15/20 07:38 97.5 F L 67 16 141/65 H 98 Inpatient E&M: 12007 Subs Hosp L2
[2020-06-15] MEDS: Menthol/Lanolin/Calamine/Znox 113 GM Tube 1 APPLIC TOPICAL ×3 (13:47→20:20)
[2020-06-15] MEDS: Mag Hydrox/Al Hydrox/Simeth 30 ML UDC PO (14:27)
[2020-06-15 16:17] VITALS: BMI 29.0
[2020-06-15 19:31] VITALS: BP 107/58; PULSE 61; RESP 18; TEMP 36.6; O2SAT 95
[2020-06-15 19:55] VITALS: BMI 29.0
[2020-06-15] MEDS: Atorvastatin Calcium 20 MG Tablet PO (20:20)
[2020-06-15] MEDS: 0.9% Saline Lock 10 ML Syringe IV (20:23)
[2020-06-15] MEDS: Doxazosin 1 MG Tablet PO (21:31)
[2020-06-16] MEDS: Enoxaparin 40 MG/0.4 ML Syringe SC (05:14)
[2020-06-16] MEDS: Nystatin Powder 15gm Bottle 1 APPLIC TOPICAL ×2 (05:15→21:47)
[2020-06-16] MEDS: oxyCODONE 5 MG Tablet PO ×4 (05:15→16:23)
[2020-06-16] MEDS: Acetaminophen 500 MG Tablet 1000 MG PO ×3 (05:15→21:48)
[2020-06-16 06:29] VITALS: BP 143/69; BP 148/85; BP 153/87; PULSE 57; PULSE 63; PULSE 83
[2020-06-16] MEDS: amLODIPine 5 MG Tablet PO (08:00)
[2020-06-16] MEDS: Aspirin E.C. 81 MG Tablet PO (08:00)
[2020-06-16] MEDS: Clopidogrel Bisulfate 75 MG Tablet PO (08:00)
[2020-06-16] MEDS: Atenolol 50 MG Tablet PO (08:00)
[2020-06-16] MEDS: Menthol/Lanolin/Calamine/Znox 113 GM Tube 1 APPLIC TOPICAL ×4 (08:01→21:48)
--- NOTE | 2020-06-16 08:31 | NURSING ---
14 pippa removed per order from surgical site to Lt hip. Denies pain/discomfort with removal. Incision line well approximated. No redness, swelling, or drainage noted to site. MIKAELA.
[2020-06-16 08:40] VITALS: BP 127/61; PULSE 57; RESP 18; TEMP 36.8; O2SAT 94
--- NOTE | 2020-06-16 08:45 | PN_ITS ---
Progress Note Orthostatics are mildly positive today. The blood pressure remained stable however the pulse rate went from 57 lying down to 83 standing up. He is asymptomatic. He is maintaining appropriate oxygen saturation on room air. Decreased oral intake yesterday. His weight has decreased from 201 pounds and 15 ounces (weighed in a WC) on 06/12/20 to 195 pounds and 9 ounces on 06/14/2020 (standing on the scale). PT/OT notes reviewed. PT reports he did much better yesterday with the AFO Medication list reviewed. Denies lightheadedness. No SOB and no nausea. No chest pain. Alert, NAD MM are dry Lungs - diminished but CTA HRRR, distant heart sounds, no MM, no gallop abd - soft and NT no edema No calf pain Impressions 1. Comminuted left intertrochanteric hip fracture sustained on 05/23/2020- surgery was delayed until 06/02/2020 due to enterococcal bacteremia discovered at admission. Patient has received 2 weeks of intravenous antibiotics. 2. Status post cephalo-medullary fixation of the left hip on 07/03/[address] Berman. 3. Enterococcal bacteremia thought to be related to tooth decay 4. 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 He had stopped taking his medications 5. Mild macrocytic anemia-likely secondary to blood loss from recent surgery/hip fracture 6. Vitamin D insufficiency 7. Glucose intolerance with a hemoglobin A1c of 6.0% on 05/01/2020 8. Hypertension 9. Dyslipidemia 10. Suspected BPH CBC and BMP now recheck weight today - standing continue the Cardura for BPH Plan C tomorrow STROKE Vital Signs/Narrative: Vital Signs Temp Pulse Pulse Pulse Pulse Resp BP 06/16/20 08:40 98.2 F 57 L 18 127/61 H 06/16/20 06:29 57 L 63 83 BP BP BP Pulse Ox 06/16/20 08:40 94 06/16/20 06:29 143/69 H 148/85 H 153/87 H Inpatient E&M: 34440 Subs Hosp L2
[2020-06-16 09:26] LABS: Absolute Lymphocyte Count 1.91 X10^3/uL (0.83-4.51); Absolute Neutrophil Count 5.9 X10^3/uL (2.0-7.7); Basophil# 0.04 X10^3/uL; Basophil% 0.4 % (0-1); Eosinophil# 0.78 X10^3/uL; Eosinophils% 8.3 % (0-5); Hematocrit 39.2 % (40-54); Hemoglobin 12.6 g/dL (13.0-16.5); Lymphocyte # 1.91 X10^3/ul (4.0); Lymphocyte % 20.4 % (19-41); Mean Corp Hgb Conc 32.1 g/dL (32-36); Mean Corpuscular Hgb 31.4 pg (27.0-32.0); Mean Corpuscular Volume 97.8 fL (80-94); Monocyte# 0.68 X10^3/uL; Monocyte% 7.3 % (0-10); NRBC Flagged by Analyzer 0 % (0-5); Neutrophil # 5.88 X10^3/uL (2.7-7.7); Platelet Count 292 K/mm3 (150-450); RBC Distribution Width CV 14.6 % (11.6-14.6); RBC Distribution Width SD 52.2 fl (35.1-43.9); Red Blood Count 4.01 M/mm3 (4.6-6.2); White Blood Count 9.4 K/mm3 (4.4-11.0)
[2020-06-16 09:38] LABS: Anion Gap 5 (5-15); BUN 15 mg/dL (7-18); BUN/Creat Ratio 21.6 RATIO (10-20); Calcium,Total 9.3 mg/dL (8.5-10.1); Chloride 104 mmol/L (98-107); Creatinine, Serum 0.69 mg/dL (0.70-1.30); EST Glomerular Filtration Rate 116 mL/min (>60); Est Glom Filt Rate - Afr Amer 141 mL/min (>60); Estimated Creatinine Clearance 57.93 ml/min; Glucose 121 mg/dL (74-106); Potassium 4.2 mmol/L (3.5-5.1); Sodium Level 140 mmol/L (136-145)
[2020-06-16 14:08] VITALS: BMI 29.0
--- NOTE | 2020-06-16 16:54 | PCM.DC ---
- Discharge Diagnoses Current Active Problems: Current Active and Chronic Problems Debility (Acute) Fall (Acute) Closed left hip fracture (Acute) Stroke (Chronic) Vitamin D deficiency (Chronic) You will use the following diet at home:: Calorie/Carbohydrate Controlled (specify 1200, 1400, etc) - You have mildly elevated blood sugars. You do not have diabetes BUT, you need to restrict your carbohydrate intake some to prevent you from developing diabetes. If you limit the carbohydrate intake susan likely will not need to take any medication for diabetes in the future. Your food should be the consistency of: Regular Your liquids should be the consistency of: Regular/Thin Discharge Activity: May Not Drive - until Dr. Berman tells you that you are able to resume driving, May not drive while taking narcotic pain medications., May Shower, Use Walker, - - Use the brace on the left leg anytime you are walking to prevent dragging the left foot and falling. Weight Bearing Status: Full weight bearing Keep extremity elevated above heart level: Left Leg Call your doctor if your incision/area has: Increased Pain/ Swelling, Increased Redness, Foul Smelling Discharge Call your doctor if you observe: Fever of 101 or Higher, Shortness of breath, Dizziness, Fainting spells, Swelling in the ankles, Chest pain, Calf discomfort, Uncontrolled pain Instructions: Benign Prostatic Hyperplasia Additional Instructions: 1. In order to prevent another stroke you MUST take your medications as instructed. 2. The infecttion/bacteria in your blood likely came from bad teeth and it is important for you to get these teeth pulled or you could get another infection and these infections can lead to or infection on the heart valves. Another infection could also lead to infection of the hardware in the left hip used to treat the hip fracture. You should take an antibiotic called Amoxicillin 30 minutes prior to having your teeth pulled. you will take 4 pills at once. A prescription has been sent to your pharmacy for this medication so you will have it to take 30 minutes prior to having your teeth pulled. 3. You have nerve damage in the left leg and this causes a condition called foot drop. This causes you to drag the big toe when you walk and this leads to tripping and falls. You now have a brace to wear on the left lower leg whenever you are walking. Wearing this brace ANYTIME you are walking will keep you from dragging the Left toes and prevent falls. 4. Since you can not take Flomax and you have a very large prostate and thickening of the bladder wall I have started you on a medication called Cardura that you will take at night that will help with the dribbling and incontinence caused by benign prostatic hypertropy. 5. When you came into the hospital you were taking a medication for BP that was a combination of Atenolol and a diuretic. You have been taken off this medication because you were dehydrated and had kidney dysfunction because of this. You have been given a prescription for plain Atenolol WITHOUT the diuretic. You will take this medicatrion once a day. Throw away the old Atenolol/Chlothalidone. 6. If you have any questions after you go home Bubba you can call me at [phone] ([employer]) or at the office [phone] or [phone]. Taker care of yourself and TAKE YOUR MEDICATION. Pending Tests on Discharge: None Allergies/Adverse Reactions: Allergies Penicillins Allergy (Verified 05/23/20 11:35) Hives adhesive tape Adverse Reaction (Verified 05/23/20 11:35) Other [place] blisters fentanyl Adverse Reaction (Verified 05/28/20 09:55) PT UNSURE OF REACTION morphine Adverse Reaction (Verified 05/28/20 09:55) PT UNSURE OF REACTION Medications to take at Discharge Aspirin [Aspir 81] 81 mg PO DAILY 11/13/18 Clopidogrel Bisulfate [Clopidogrel] 75 mg PO DAILY 05/23/20 Simvastatin 40 mg PO QHS 05/23/20 Acetaminophen [Tylenol] 1,000 mg PO Q8 06/04/20 Menthol/Lanolin/Calamine/Znox [Calmoseptine Ointment] 1 applic TOPICAL 4X/DAY 06/04/20 Polyethylene Glycol 3350 [Miralax] 17 gm PO DAILY PRN packet 06/04/20 Senna/Docusate Sodium [Senokot-S] 2 tab PO BID 06/04/20 Amoxicillin [Amoxil] 2,000 mg PO UD #4 cap 06/14/20 Amlodipine [Norvasc] 5 mg PO DAILY #30 tab 06/16/20 Atenolol [Tenormin (beta debi)] 50 mg PO DAILY #30 tab 06/16/20 Doxazosin Mesylate [Cardura] 1 mg PO QHS #30 tab 06/16/20 Enoxaparin [Lovenox] 40 mg SUBCUT DAILY@0600 #16 syringe 06/16/20 Oxycodone [Oxyir] 5 mg PO Q4H PRN PRN 7 Days #20 tablet 06/16/20 The following prescriptions were given: Amoxicillin [Amoxil] 2,000 mg PO UD #4 cap Transmission Status: Received by [facility] Doxazosin Mesylate [Cardura] 1 mg PO QHS #30 tab Transmission Status: Pending to [facility] Enoxaparin [Lovenox] 40 mg SUBCUT DAILY@0600 #16 syringe Transmission Status: Pending to [facility] Amlodipine [Norvasc] 5 mg PO DAILY #30 tab Transmission Status: Pending to [facility] Oxycodone [Oxyir] 5 mg PO Q4H PRN PRN 7 Days #20 tablet PRN Reason: Pain 5-10 Transmission Status: Sent to [facility] Atenolol [Tenormin (beta debi)] 50 mg PO DAILY #30 tab Transmission Status: Pending to [facility] Primary Care Physician: Jessica Santiago DO [Primary Care Provider] - Please follow up with your Primary Care Physician in: 7-10 days Test Results: Test results from this visit will be discussed in further detail at your follow-up appointment, if applicable. Please Follow Up With: Deny Berman DO Please Follow Up With: Josué Brown MD Please Follow Up With: Jessica Santiago DO
--- NOTE | 2020-06-16 17:30 | DS.PCM_ITS ---
Discharge Date and Diagnosis Date of Admission: 06/04/20 Date of Discharge: 06/17/20 - Primary Discharge Diagnosis Acute Problems: Active Problems Debility (Acute) due to hip fracture Closed left hip fracture (Acute) History of open reduction and internal fixation (ORIF) procedure (Acute) -cephalo-medullary nail fixation Anemia due to blood loss (Acute)-mild, hemoglobin at discharge 12.6 Bacteremia with enterococcus casseliflavus - thought to originate from decayed teeth - Secondary Discharge Diagnosis Chronic Problems: Chronic Problems BPH (benign prostatic hyperplasia) (Chronic) Glucose intolerance (Chronic)-hemoglobin A1c 6% Presbycusis (Chronic) 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) Vitamin D deficiency (Chronic) HTN (hypertension) (Chronic) April 2020 HLD (hyperlipidemia) (Chronic) Left foot drop Hospital Course and Treatment Imaging Results: Laboratory Last Values WBC 9.4 K/mm3 (4.4-11.0) 06/16/20 09:15 RBC 4.01 M/mm3 (4.6-6.2) L 06/16/20 09:15 Hgb 12.6 g/dL (13.0-16.5) L 06/16/20 09:15 Hct 39.2 % (40-54) L 06/16/20 09:15 MCV 97.8 fL (80-94) H 06/16/20 09:15 MCH 31.4 pg (27.0-32.0) 06/16/20 09:15 MCHC 32.1 g/dL (32-36) 06/16/20 09:15 RDW Std Deviation 52.2 fl (35.1-43.9) H 06/16/20 09:15 RDW Coeff of Flora 14.6 % (11.6-14.6) 06/16/20 09:15 Plt Count 292 K/mm3 (150-450) 06/16/20 09:15 MPV 8.0 fl (6.2-12.0) 06/16/20 09:15 Immature Gran % (Auto) 0.600 % (0.0-0.9) 06/16/20 09:15 Neut % (Auto) 63.0 % (47-70) 06/16/20 09:15 Lymph % (Auto) 20.4 % (19-41) 06/16/20 09:15 Sandoval % (Auto) 7.3 % (0-10) 06/16/20 09:15 Eos % (Auto) 8.3 % (0-5) H 06/16/20 09:15 Baso % (Auto) 0.4 % (0-1) 06/16/20 09:15 Absolute Neuts (auto) 5.9 X10^3/uL (2.0-7.7) 06/16/20 09:15 Absolute Lymphs (auto) 1.91 X10^3/uL (0.83-4.51) 06/16/20 09:15 Nucleated RBC % 0 % (0-5) 06/16/20 09:15 Sodium 140 mmol/L (136-145) 06/16/20 09:15 Potassium 4.2 mmol/L (3.5-5.1) 06/16/20 09:15 Chloride 104 mmol/L (98-107) 06/16/20 09:15 Carbon Dioxide 31.0 mmol/L (21.0-32.0) 06/16/20 09:15 Anion Gap 5 (5-15) 06/16/20 09:15 BUN 15 mg/dL (7-18) 06/16/20 09:15 Creatinine 0.69 mg/dL (0.70-1.30) L 06/16/20 09:15 Estim Creat Clear Calc 57.93 ml/min 06/16/20 09:15 Est GFR (MDRD) Af Amer 141 mL/min (>60) 06/16/20 09:15 Est GFR (MDRD) Non-Af 116 mL/min (>60) 06/16/20 09:15 BUN/Creatinine Ratio 21.6 RATIO (10-20) H 06/16/20 09:15 Glucose 121 mg/dL (74-106) H 06/16/20 09:15 Calcium 9.3 mg/dL (8.5-10.1) 06/16/20 09:15 None Operations: - - Cephalo-medullary fixation left hip by Dr. Carpio on 07/03/2020 Procedures: None Summary of Care Provided: The patient is a 80 year old M with a past medical history of ischemic left parietal lobe infarct in April 2020, mild left atrial enlargement, mild pulmonary hypertension, diastolic dysfunction, hypertension and hyperlipidemia who presented to the emergency department at [facility] on 05/23/2020 with complaints of left hip pain following a mechanical fall. In the emergency department he was restless and confused. His reported he had a cough and shortness of breath. X-ray of the left hip showed a comminuted intertrochanteric fracture femoral neck. Orthopedics was consulted. Infectious disease work-up was initiated due to acute encephalopathy with recent cough and shortness of breath. 2 of 2 blood cultures done at admission were positive for gram-positive cocci. The patient was started on meropenem and vancomycin and consult was obtained with Dr. Brown. PMH was + for MSSA infection the antibiotic spectrum was narrowed to vancomycin and cefazolin. Dr. Brown advised holding surgery until the blood cultures cleared. The bacteria was identified as enterococcus Casseliflavus. TTE showed no vegetations. A transesophageal echocardiogram was done on 06/01/2020 and there were no v egetations present. Blood cultures from 05/25/2020 were negative. He underwent ORIF of the left hip on 06/02/[address] Berman. He was transferred to the acute inpatient rehab unit on 06/04/2020 for greater than 3 hours of therapy daily to restore him to his prior level of function. He completed 2 weeks of intravenous antibiotics while in the rehab unit. Bacteremia was thought to be due to poor dental health and a visit to the dentist with probable multiple extractions was recommended. Due to previous CVA Mr. Mortensen had left foot drop causing his right toe to drag and this likely contributed to his fall. An AFO for the left lower extremity was ordered and he began using the AFO on 06/15/2020. Lab showed a mild macrocytic anemia more likely than not secondary to acute blood loss related to the hip surgery with increased reticulocytosis. Vitamin D 25 hydroxy was 25 which is consistent with vitamin D insufficiency. He was started on a vitamin D supplement. Calcium was within normal limits. FBS was consistently mildly elevated and a hemoglobin A1c was checked and was 6% which is consistent with glucose intolerance. Bubba has some dribbling and urge incontinence of urine and he was started on Cardura 1 mg at HS. He lists Flomax as an allergy and stated it caused burning with urination. Blood pressure remained within normal limits. Prior to discharge Bubba was able to ambulate 85 feet with a wheeled walker at contact- guard assist on various surfaces with no loss of balance. He was able to ascend and descend three 4 inch steps with 2 handrails at contact-guard assist/min assist. He was able to perform grooming, bathing and upper body dressing at supervision/set up. He was standby assist for lower body dressing, toileting and toilet transfer. He was also standby assist for tub/shower transfer. Bubba was discharged home on 06/16/2020 and will have [facility] Home health care PT/OT/SN. He was instructed to follow-up with Dr. Berman, Dr. Brown and Dr. Santiago post discharge. He will take 4 Amoxil 500 mg tabs for a total of 2 GM 30 minutes prior to any dental extractions. Alert, NAD MM are dry....the BP did not significantly change when going from lying to standing however the heart rate increased from 57-83 which is consistent with mild orthostatic hypotension. He was instructed to increase his fluid intake. He was taking chlorthalidone with atenolol at admission to the hospital and he was discharged with atenolol alone and chlorthalidone was discontinued. Lungs - diminished but CTA HRRR, distant heart sounds, no MM, no gallop abd - soft and NT no edema No calf pain Incision is intact with no erythema and no DC This note was generated with [employer] dictation software. It may contain incorrect words, spelling, and punctuation that were not noted in checking the note before signing. - Physical Exam Vitals/I&O's: Vital Signs Temp Pulse Resp BP Pulse Ox 98.2 F 57 L 18 127/61 H 94 06/16/20 08:40 06/16/20 08:40 06/16/20 08:40 06/16/20 08:40 06/16/20 08:40 Oxygen Flow Rate (L/min) 96 Oxygen Delivery Method Room Air Weight: 198 lb Body Mass Index (BMI) 29.0 Finger Stick Blood Glucose 90 Orthostatic Vital Signs Start: 06/16/20 06:29 Freq: q24h Status: Active Protocol: Activity Type Activity Date Activity User E-Sign Co-Sign Detail Recorded Client Recorded Date Recorded By Document 06/16/20 06:29 CAK [id number] 06/16/20 06:33 CAK 06/16/20 06:29 Orthostatic Vitals Standing -Blood Pressure (90/60-120/80 mm Hg) 153/87 H -Extremity Use Right Arm -Pulse Rate (60-100 beats/min) 83 Sitting -Blood Pressure (90/60-120/80 mm Hg) 148/85 H -Extremity Use Right Arm -Pulse Rate (60-100 beats/min) 63 Lying -Blood Pressure (90/60-120/80 mm Hg) 143/69 H -Extremity Use Right Arm -Pulse Rate (60-100 beats/min) 57 L Intake and Output for Last 24 Hours 06/14/20 06/15/20 06/16/20 23:59 23:59 23:59 Intake Total 480 / 480 660 / 660 1140 / 1140 Output Total 600 / 600 Balance 480 / 480 660 / 660 540 / 540 Laboratory Results 06/16/20 09:15: WBC 9.4, RBC 4.01 L, Hgb 12.6 L, Hct 39.2 L, MCV 97.8 H, MCH 31.4, MCHC 32.1, RDW Std Deviation 52.2 H, RDW Coeff of Flora 14.6, Plt Count 292, MPV 8.0, Immature Gran % (Auto) 0.600, Neut % (Auto) 63.0, Lymph % (Auto) 20.4, Sandoval % (Auto) 7.3, Eos % (Auto) 8.3 H, Baso % (Auto) 0.4, Absolute Neuts (auto) 5.9, Absolute Lymphs (auto) 1.91, Nucleated RBC % 0 06/16/20 09:15: Sodium 140, Potassium 4.2, Chloride 104, Carbon Dioxide 31.0, Anion Gap 5, BUN 15, Creatinine 0.69 L, Estim Creat Clear Calc 57.93, Est GFR (MDRD) Af Amer 141, Est GFR (MDRD) Non-Af 116, BUN/Creatinine Ratio 21.6 H, Glucose 121 H, Calcium 9.3 Current Medications Acetaminophen (Tylenol) 1,000 mg PO Q8 CAROLYN Last Admin: 06/16/20 13:29 Dose: 1,000 mg Documented by: Al Hydroxide/Mg Hydroxide (Mylanta Ii) 30 ml PO Q4H PRN PRN PRN Reason: HEARTBURN Last Admin: 06/15/20 14:27 Dose: 30 ml Documented by: Amlodipine Besylate (Norvasc) 5 mg PO DAILY [facility] Last Admin: 06/16/20 08:00 Dose: 5 mg Documented by: Aspirin (Ecotrin) 81 mg PO DAILY [facility] Last Admin: 06/16/20 08:00 Dose: 81 mg Documented by: Atenolol (Tenormin (Beta Sena)) 50 mg PO DAILY [facility] Last Admin: 06/16/20 08:00 Dose: 50 mg Documented by: Atorvastatin Calcium (Lipitor) 20 mg PO QHS [facility] Last Admin: 06/15/20 20:20 Dose: 20 mg Documented by: Bisacodyl (Dulcolax) 10 mg RECTAL .PRN X 1 PRN PRN Reason: Constipation Calamine/Phenol (Calmoseptine Ointment) 1 applic TOPICAL 4X/DAY [facility]; Protocol Last Admin: 06/16/20 16:24 Dose: 1 applicatio Documented by: Clopidogrel Bisulfate (Plavix) 75 mg PO DAILY [facility] Last Admin: 06/16/20 08:00 Dose: 75 mg Documented by: Docusate Sodium (Colace) 200 mg PO BID PRN PRN PRN Reason: Constipation Doxazosin Mesylate (Cardura) 1 mg PO QHS [facility] Last Admin: 06/15/20 21:31 Dose: 1 mg Documented by: Enoxaparin Sodium (Lovenox) 40 mg SC DAILY@0600 [facility] Stop: 07/03/20 06:05 Last Admin: 06/16/20 05:14 Dose: 40 mg Documented by: Ergocalciferol (Vitamin D) 50,000 unit PO [facility] Last Admin: 06/13/20 08:38 Dose: 50,000 unit Documented by: Heparin Sodium (Beef Lung) () 50 units IV UD PRN PRN Reason: PICC Line Heparin Flush Sodium Chloride () 250 mls @ 15 mls/hr IV .[id number] PRN PRN Reason: Saline Flush Last Infusion: 06/13/20 08:24 Dose: Infused Documented by: Sodium Chloride () 250 mls @ 15 mls/hr IV .[id number] PRN PRN Reason: Additional IVPB Infusion Last Infusion: 06/09/20 21:19 Dose: Infused Documented by: Sodium Chloride () 1,000 mls @ 100 mls/hr IV .Q10H [facility] Stop: 06/17/20 08:14 Magnesium Hydroxide (Milk Of Magnesia) 30 ml PO .PRN X 1 PRN PRN Reason: Constipation Nystatin (Mycostatin Powder) 1 applic TOPICAL BID@0600,2200 [facility]; Protocol Last Admin: 06/16/20 05:15 Dose: 1 applicatio Documented by: Oxycodone HCl (Oxyir) 5 mg PO Q4H PRN PRN PRN Reason: Pain Score 4-10/10 Last Admin: 06/16/20 16:23 Dose: 5 mg Documented by: Oxycodone HCl (Oxyir) 5 mg PO DAILY@0600 [facility] Last Admin: 06/16/20 05:15 Dose: 5 mg Documented by: Polyethylene Glycol (Miralax) 17 gm PO DAILY PRN PRN PRN Reason: Constipation Senna/Docusate Sodium (Senokot-S, Anum-Colace) 2 tablet PO BID [facility] Last Admin: 06/16/20 08:01 Dose: Not Given Documented by: Sodium Chloride () 10 - 40 ml IV UD PRN PRN Reason: Open End PICC Flush Last Admin: 06/15/20 20:23 Dose: 10 ml Documented by: Sodium Chloride (0.9% Nacl (Sterile) Posiflush) 10 - 40 ml IV UD PRN PRN Reason: Port access or dressing change Discharge Activity: May Not Drive - until Dr. Berman tells you that you are able to resume driving, May not drive while taking narcotic pain medications., May Shower, Use Walker, - - Use the brace on the left leg anytime you are walking to prevent dragging the left foot and falling. Weight Bearing Status: Full weight bearing Keep extremity elevated above heart level: Left Leg Call your doctor if your incision/area has: Increased Pain/ Swelling, Increased Redness, Foul Smelling Discharge Call your doctor if you observe: Fever of 101 or Higher, Shortness of breath, Dizziness, Fainting spells, Swelling in the ankles, Chest pain, Calf discomfort, Uncontrolled pain Home Medications: Medications to take at Discharge Aspirin [Aspir 81] 81 mg PO DAILY 11/13/18 Clopidogrel Bisulfate [Clopidogrel] 75 mg PO DAILY 05/23/20 Simvastatin 40 mg PO QHS 08/18/20 Acetaminophen [Tylenol] 1,000 mg PO Q8 06/04/20 Menthol/Lanolin/Calamine/Znox [Calmoseptine Ointment] 1 applic TOPICAL 4X/DAY 06/04/20 Polyethylene Glycol 3350 [Miralax] 17 gm PO DAILY PRN packet 06/04/20 Senna/Docusate Sodium [Senokot-S] 2 tab PO BID 06/04/20 Amoxicillin [Amoxil] 2,000 mg PO UD #4 cap 06/14/20 Amlodipine [Norvasc] 5 mg PO DAILY #30 tab 06/16/20 Atenolol [Tenormin (beta sena)] 50 mg PO DAILY #30 tab 06/16/20 Doxazosin Mesylate [Cardura] 1 mg PO QHS #30 tab 06/16/20 Enoxaparin [Lovenox] 40 mg SUBCUT DAILY@0600 #16 syringe 06/16/20 Oxycodone [Oxyir] 5 mg PO Q4H PRN PRN 7 Days #20 tab 06/16/20 Following Prescriptions Were Given to Patient: Amoxicillin [Amoxil] 2,000 mg PO UD #4 cap Transmission Status: Received by [facility] Doxazosin Mesylate [Cardura] 1 mg PO QHS #30 tab Transmission Status: Received by [facility] Enoxaparin [Lovenox] 40 mg SUBCUT DAILY@0600 #16 syringe Transmission Status: Received by [facility] Amlodipine [Norvasc] 5 mg PO DAILY #30 tab Transmission Status: Received by [facility] Oxycodone [Oxyir] 5 mg PO Q4H PRN PRN 7 Days #20 tab PRN Reason: Pain 5-10 Transmission Status: Received by [facility] Atenolol [Tenormin (beta sena)] 50 mg PO DAILY #30 tab Transmission Status: Received by [facility] Primary Care Physician: Jessica Santiago DO [Primary Care Provider] - Please follow up with your Primary Care Physician in: 7-10 days Please Follow Up With: Deny Berman DO Please Follow Up With: Josué Brown MD Please Follow Up With: Jessica Santiago DO Patient Instructions: Benign Prostatic Hyperplasia Disposition: Home with Home Health - [facility] Minutes spent on discharge:: 40 Patient Condition:: Good Medical Necessity - Tobacco Use Smoking Status: Former smoker Tobacco Use: Non-smoker Meaningful Use Info Meaningful Use Diagnoses (Choose all that apply): None applicable Inpatient E&M: 76012 Disch Hosp
[2020-06-16] MEDS: 0.9% Saline Lock 10 ML Syringe IV (18:13)
[2020-06-16] MEDS: 0.9% Normal Saline 1,000 ML 100 ML IV (18:15)
[2020-06-16 21:02] VITALS: BP 138/79; PULSE 55; RESP 18; TEMP 36.7; O2SAT 96
[2020-06-16] MEDS: Atorvastatin Calcium 20 MG Tablet PO (21:47)
[2020-06-16] MEDS: Doxazosin 1 MG Tablet PO (21:48)
[2020-06-16 22:00] VITALS: PULSE 55; RESP 16
[2020-06-17 02:49] VITALS: BMI 29.0
[2020-06-17] MEDS: 0.9% Normal Saline 1,000 ML 100 ML IV (03:49)
[2020-06-17] MEDS: Acetaminophen 500 MG Tablet 1000 MG PO ×2 (05:16→13:31)
[2020-06-17] MEDS: Nystatin Powder 15gm Bottle 1 APPLIC TOPICAL (05:17)
[2020-06-17] MEDS: Enoxaparin 40 MG/0.4 ML Syringe SC (05:17)
[2020-06-17] MEDS: oxyCODONE 5 MG Tablet PO ×2 (05:45→11:43)
[2020-06-17 07:09] VITALS: BP 110/63; PULSE 73; RESP 16; TEMP 36.4; O2SAT 95
[2020-06-17] MEDS: Clopidogrel Bisulfate 75 MG Tablet PO (07:48)
[2020-06-17] MEDS: amLODIPine 5 MG Tablet PO (07:48)
[2020-06-17] MEDS: Aspirin E.C. 81 MG Tablet PO (07:48)
[2020-06-17] MEDS: Atenolol 50 MG Tablet PO (07:48)
[2020-06-17] MEDS: Menthol/Lanolin/Calamine/Znox 113 GM Tube 1 APPLIC TOPICAL (07:49)
[2020-06-17 09:23] VITALS: BMI 29.0
[2020-06-17 13:59] VITALS: BP 110/63; PULSE 73; RESP 16; TEMP 36.4; O2SAT 95
== END 2020-06-17 14:04 | disposition home health service (06) | DRG 560 ==
PROVIDERS: Internal Medicine; Admitting Provider Family Medicine Geriatric Medicine; PCP Family Medicine; Visit Provider Family Medicine Geriatric Medicine
DX: S72.002D Fracture of unspecified part of neck of left femur, subsequent encounter for closed fracture with routine healing (principal); R78.81 Bacteremia; W19.XXXD Unspecified fall, subsequent encounter; I10 Essential (primary) hypertension; E78.5 Hyperlipidemia, unspecified; E55.9 Vitamin D deficiency, unspecified; Z86.73 Personal history of transient ischemic attack (TIA), and cerebral infarction without residual deficits; Z87.891 Personal history of nicotine dependence; B35.4 Tinea corporis; B95.2 Enterococcus as the cause of diseases classified elsewhere; M21.372 Foot drop, left foot; E74.39 Other disorders of intestinal carbohydrate absorption; N40.0 Benign prostatic hyperplasia without lower urinary tract symptoms
CPT/HCPCS: 36415; 80048; 85025; 85027; 97110; 97116; 97162; 97166; 97530; 97535; 97802; 99251; J7030; J7050; A4216; G0463

== ENCOUNTER 2020-10-27 12:07 | Emergency (ER) | payer MEDICARE, OTHER, SELFPAY ==
[2020-07-05 11:32] VITALS: BMI 29.0
[2020-10-27 12:09] VITALS: BP 146/83; PULSE 55; RESP 16; TEMP 36.4; O2SAT 96; BMI 31.1
--- NOTE | 2020-10-27 12:35 | EKG12_ITS ---
Test Reason : Blood Pressure : / mmHG Vent. Rate : 050 BPM Atrial Rate : 050 BPM P-R Int : 188 ms QRS Dur : 080 ms QT Int : 470 ms P-R-T Axes : 068 065 063 degrees QTc Int : 428 ms Sinus bradycardia Otherwise normal ECG Confirmed by JIMMY CORNEJO, JOCELYNN ([id number]), photographic editor FRANKIE GILLESPIE ([id number]) on 10/31/2020 10:49:50 AM Referred By: PITA Confirmed By:JOCELYNN MARQUEZ MD
--- NOTE | 2020-10-27 12:38 | ED.DCSUM_ITS ---
History of Present Illness Chief Complaint: Weakness Informant: Patient, Family Narrative: 80-year-old male presents with his out of concern for bacteremia. Patient fell in June had a left hip fracture. Surgery was postponed due to bacteremia. Eventually the bacteremia was felt to be probably due to decayed teeth. He was subsequently discharged and underwent dental extractions. He is followed up with a surgeon a couple times. tells me that he has never achieved his baseline since the surgery. He has had fatigue and sleeping more. She states that he seems more fatigued and more sleepy in the past week or so. She tells me that he has nausea. As she is describing his fatigue he is able to stand up out of the bed on his own and sprightly get back into the bed lifting both legs off the ground at the same time and lift him onto the bed. No reported fevers. He notes a itchy rash left arm on left upper back. That is been there for a week. The tells me that they spoke with infectious disease office on Friday. She states she called back today and was told to come to the emergency room to get the blood test. - Past Medical History (1) Bacteremia Status: Chronic (2) BPH (benign prostatic hyperplasia) Status: Chronic (3) HLD (hyperlipidemia) Status: Chronic (4) HTN (hypertension) Status: Chronic Comment: April 2020 (5) Presbycusis Status: Chronic (6) Stroke Status: Chronic (7) Vitamin D deficiency Status: Chronic Past Medical History - Allergies and Home Meds Allergies/Adverse Reactions: Allergies Penicillins Allergy (Verified 10/27/20 12:08) Hives adhesive tape Adverse Reaction (Verified 10/27/20 12:08) Other lawton blisters fentanyl Adverse Reaction (Verified 10/27/20 12:08) PT UNSURE OF REACTION morphine Adverse Reaction (Verified 10/27/20 12:08) PT UNSURE OF REACTION Primary Care Physician: Jessica Santiago DO [Primary Care Provider] - Surgical History: total knee arthroplasty - left leg ORIF, - - Back surgery. Left hip cephalo-medullary nail fixation. Lives: Spouse/ Significant Other Smoking Status: Former smoker Drugs: None - Family History Maternal Family History: Reports: - Paternal Family History: Reports: - Review of Systems General: Reports: Malaise. Denies: Chills, Fever, Sweats Eyes: Denies: Visual changes - bilaterally, Diplopia ENT: Denies: Rhinorrhea, Sore throat Cardiovascular: Denies: Chest pain, Palpitations Respiratory: Denies: Dyspnea, Cough, Dyspnea on exertion Gastrointestinal: Reports: Nausea. Denies: Abdominal pain, Vomiting, Diarrhea, Melena, Hematochezia Genitourinary: Denies: Dysuria, Hematuria, Frequency Musculoskeletal: Denies: Back pain, Extremity Pain Skin: Denies: Rash, Wounds Neurological: Denies: Headache, Weakness, Numbness Physical Exam Vital Signs/Narrative: Vital Signs Temp Pulse Resp BP Pulse Ox 10/27/20 12:09 97.6 F L 55 L 16 146/83 H 96 Inital Vital Signs reviewed: Yes General: Well nourished, Well developed, Obese, No Acute Distress Head: Normocephalic, Atraumatic Eyes: Perrl, EOMI ENT: Moist mucous membranes, No rhinorrhea, - - Hard of hearing Neck: Supple, Nontender Cardiovascular: Regular rate, Regular rhythm, No murmurs Respiratory: No distress, CTA bilaterally, Chest nontender Abdomen: Soft, Nontender, Nondistended, Normal bowel sounds Back: Nontender, Normal Inspection Extremities: Nontender, No edema Skin: Normal color, No rash Neurological: Alert, Oriented x3, Cranial nerves II-XII grossly intact, Normal Strength, Normal Sensation Psychological: Normal affect, Normal Mood Diagnostic/Tx/Re-eval Clinical Impression(s) from Imaging Studies Chest X-Ray 10/27/20 15:15 IMPRESSION: Borderline cardiomegaly. Electronically Signed: Winston Santos MD at 13:37 EST , Service support , Laboratory Last Values WBC 9.0 K/mm3 (4.4-11.0) 10/27/20 13:00 RBC 4.82 M/mm3 (4.6-6.2) 10/27/20 13:00 Hgb 14.6 g/dL (13.0-16.5) 10/27/20 13:00 Hct 44.4 % (40-54) 10/27/20 13:00 MCV 92.1 fL (80-94) 10/27/20 13:00 MCH 30.3 pg (27.0-32.0) 10/27/20 13:00 MCHC 32.9 g/dL (32-36) 10/27/20 13:00 RDW Std Deviation 46.4 fl (35.1-43.9) H 10/27/20 13:00 RDW Coeff of Flora 13.6 % (11.6-14.6) 10/27/20 13:00 Plt Count 244 K/mm3 (150-450) 10/27/20 13:00 MPV 8.7 fl (6.2-12.0) 10/27/20 13:00 Immature Gran % (Auto) 0.400 % (0.0-0.9) 10/27/20 13:00 Neut % (Auto) 65.8 % (47-70) 10/27/20 13:00 Lymph % (Auto) 19.8 % (19-41) 10/27/20 13:00 Ritchie % (Auto) 8.1 % (0-10) 10/27/20 13:00 Eos % (Auto) 5.3 % (0-5) H 10/27/20 13:00 Baso % (Auto) 0.6 % (0-1) 10/27/20 13:00 Absolute Neuts (auto) 6.0 X10^3/uL (2.0-7.7) 10/27/20 13:00 Absolute Lymphs (auto) 1.79 X10^3/uL (0.83-4.51) 10/27/20 13:00 Nucleated RBC % 0 % (0-5) 10/27/20 13:00 PT 12.7 SECONDS (11.7-14.9) 10/27/20 13:00 INR 1.0 10/27/20 13:00 APTT 24.0 Seconds (24.1-36.2) L 10/27/20 13:00 Sodium 141 mmol/L (136-145) 10/27/20 13:00 Potassium 3.8 mmol/L (3.5-5.1) 10/27/20 13:00 Chloride 108 mmol/L (98-107) H 10/27/20 13:00 Carbon Dioxide 30.0 mmol/L (21.0-32.0) 10/27/20 13:00 Anion Gap 3 (5-15) L 10/27/20 13:00 BUN 20 mg/dL (7-18) H 10/27/20 13:00 Creatinine 0.80 mg/dL (0.70-1.30) 10/27/20 13:00 Estim Creat Clear Calc 67.71 ml/min 10/27/20 13:00 Est GFR (MDRD) Af Amer 120 mL/min (>60) 10/27/20 13:00 Est GFR (MDRD) Non-Af 99 mL/min (>60) 10/27/20 13:00 BUN/Creatinine Ratio 25.1 RATIO (10-20) H 10/27/20 13:00 Glucose 115 mg/dL (74-106) H 10/27/20 13:00 Lactic Acid 1.8 mmol/L (0.4-1.9) 10/27/20 13:00 Calcium 9.6 mg/dL (8.5-10.1) 10/27/20 13:00 Total Bilirubin 0.40 mg/dL (0.20-1.00) 10/27/20 13:00 AST 15 U/L (15-37) 10/27/20 13:00 ALT 23 U/L (16-61) 10/27/20 13:00 Alkaline Phosphatase 119 U/L (45-117) H 10/27/20 13:00 Troponin I < 0.015 ng/mL (<0.045) 10/27/20 13:00 Total Protein 7.4 g/dL (6.4-8.2) 10/27/20 13:00 Albumin 3.7 g/dL (3.2-5.0) 10/27/20 13:00 Globulin 3.7 g/dL (2.2-4.2) 10/27/20 13:00 Albumin/Globulin Ratio 1.0 RATIO (0.9-2.4) 10/27/20 13:00 Urine Color Yellow (Yellow) 10/27/20 13:15 Urine Clarity Clear (Clear) 10/27/20 13:15 Urine pH 5.0 (5.0 - 8.0) 10/27/20 13:15 Ur Specific [place] 1.025 (1.002-1.030) 10/27/20 13:15 Urine Protein Negative mg/dl (Negative) 10/27/20 13:15 Urine Glucose (UA) Normal mg/dl (Normal) 10/27/20 13:15 Urine Ketones Negative mg/dl (Negative) 10/27/20 13:15 Urine Occult Blood 25 /ul (Negative) H 10/27/20 13:15 Urine Nitrite Negative (Negative) 10/27/20 13:15 Urine Bilirubin Negative mg/dL (Negative) 10/27/20 13:15 Urine Urobilinogen Normal mg/dl (Normal) 10/27/20 13:15 Ur Leukocyte Esterase 25 /ul (Negative) H 10/27/20 13:15 Urine RBC 0-5 SEEN /hpf (0-5) 10/27/20 13:15 Urine WBC 0-5 SEEN /hpf (0-5) 10/27/20 13:15 Ur Squamous Epith Cells 0-5 SEEN /hpf (0-5) 10/27/20 13:15 Urine Bacteria 0 SEEN /hpf (None Seen) 10/27/20 13:15 Urine Mucus 0 SEEN /hpf (<or=2+) 10/27/20 13:15 - EKG Initial EKG Interpretation: Sinus Rhythm - EKG demonstrates sinus bradycardia at a rate of 50. No concerning features of ACS or ectopy noted. - Medical Decision Making 80-year-old male presenting for weakness of months duration. His 's concern is for bacteremia which I am not seeing evidence of. Blood cultures will be processed. I am saying that he is bradycardic into the high 40s low 50s. He is on atenolol 50 mg. I spoke with his primary care physician. We are going to discontinue the atenolol and begin him on metoprolol succinate 25 mg. He has follow-up arranged with primary care. ED Disposition - Plan for ED Patient: Disposition: Home or Assisted Living Diagnosis: Sinus bradycardia, Weakness Instructions: ED Weakness (Uncertain Cause), ED Bradycardia Prescriptions: Metoprolol Succinate 25 mg PO DAILY #30 tab.er.24h Prescription Printed Referrals: Jessica Santiago DO [Primary Care Provider] - Keep [place] appointment Additional Instructions: 1. Discontinue your atenolol 2. Begin metoprolol succinate 25 mg once daily. 3. Please record your heart rate and blood pressure at lunch and dinner each day and take that information to your doctor's appointment.
[2020-10-27 13:17] LABS: Absolute Lymphocyte Count 1.79 X10^3/uL (0.83-4.51); Basophil# 0.05 X10^3/uL; Basophil% 0.6 % (0-1); Eosinophil# 0.48 X10^3/uL; Eosinophils% 5.3 % (0-5); Hematocrit 44.4 % (40-54); Hemoglobin 14.6 g/dL (13.0-16.5); Lymphocyte # 1.79 X10^3/ul (4.0); Lymphocyte % 19.8 % (19-41); Mean Corp Hgb Conc 32.9 g/dL (32-36); Mean Corpuscular Hgb 30.3 pg (27.0-32.0); Mean Corpuscular Volume 92.1 fL (80-94); Mean Platelet Vol. 8.7 fl (6.2-12.0); Monocyte# 0.73 X10^3/uL; Monocyte% 8.1 % (0-10); NRBC Flagged by Analyzer 0 % (0-5); Neutrophil # 5.95 X10^3/uL (2.7-7.7); Neutrophil % 65.8 % (47-70); Platelet Count 244 K/mm3 (150-450); RBC Distribution Width CV 13.6 % (11.6-14.6); RBC Distribution Width SD 46.4 fl (35.1-43.9); Red Blood Count 4.82 M/mm3 (4.6-6.2)
[2020-10-27 13:22] LABS: Bacteria 0 SEEN /hpf (None Seen); Mucous, Urine 0 SEEN /hpf (<or=2+)
[2020-10-27 13:27] LABS: Prothrombin Time (Protime)PT. 12.7 SECONDS (11.7-14.9)
[2020-10-27 13:29] LABS: Color, Urine Yellow (Yellow); Glucose, Dipstick Normal (Normal); Ketone-Dipstick Negative (Negative); Leukocyte Esterase-Dipstick 25 /ul (Negative); Nitrite-Dipstick Negative (Negative); Occult Blood-Urine 25 /ul (Negative); Protein-Dipstick Negative (Negative); Specific Gravity, Urine 1.025 (1.002-1.030); Urine Bilirubin Dipstick Negative (Negative); Urine Clarity Clear (Clear); Urine Urobilinogen Normal (Normal)
[2020-10-27 13:33] LABS: AST(SGOT) 15 U/L (15-37); Alanine Aminotransfer ALT/SGPT 23 U/L (16-61); Albumin, Serum 3.7 g/dL (3.2-5.0); Alkaline Phosphatase 119 U/L (45-117); Anion Gap 3 (5-15); BUN 20 mg/dL (7-18); BUN/Creat Ratio 25.1 RATIO (10-20); Calcium,Total 9.6 mg/dL (8.5-10.1); Chloride 108 mmol/L (98-107); EST Glomerular Filtration Rate 99 mL/min (>60); Est Glom Filt Rate - Afr Amer 120 mL/min (>60); Estimated Creatinine Clearance 67.71 ml/min; Globulin 3.7 g/dL (2.2-4.2); Glucose 115 mg/dL (74-106); Potassium 3.8 mmol/L (3.5-5.1); Protein, Total 7.4 g/dL (6.4-8.2); Sodium Level 141 mmol/L (136-145)
[2020-10-27 13:41] LABS: Lactic Acid 1.8 mmol/L (0.4-1.9)
[2020-10-27 13:53] LABS: Red Blood Cells-Urine 0-5 SEEN /hpf (0-5); Squamous Epithelial Cells - UA 0-5 SEEN /hpf (0-5); White Blood Cells 0-5 SEEN /hpf (0-5)
[2020-10-27 14:13] VITALS: BP 139/72; PULSE 48; RESP 16; O2SAT 95
[2020-10-27 15:13] VITALS: BP 123/72; PULSE 53; RESP 18; O2SAT 96
--- NOTE | 2020-10-27 15:14 | ED.RN ---
per pt request this rn calls pt and updates the pt on his discharge instructions.
--- NOTE | 2020-10-27 15:15 | RAD_ITS ---
STUDY: X-RAY CHEST REASON FOR EXAM: Male, 80 years old. INCREASED WEAKNESS, FATIGUE, AND NAUSEA. TECHNIQUE: Single AP portable view of the chest. COMPARISON: Comparison is made with prior examination dated 05/23/2020. FINDINGS: EKG electrodes are seen. Hyperinflation. The lungs are clear. There is no demonstrated pleural abnormality. There is borderline cardiomegaly. Normal mediastinum and jaime. Normal visualized pulmonary arteries. There is atherosclerotic calcification of the aortic arch with tortuosity. Normal visualized thoracic spine. There is degenerative osteoarthritis of the bilateral shoulders. There is no demonstrated abnormality of the visualized soft tissue structures of the upper abdomen. RAD/Chest 1 View (Portable) IMPRESSION: Borderline cardiomegaly. Electronically Signed: Winston Santos MD at 13:37 EST , Service support ,
== END 2020-10-27 15:16 | disposition home or self-care (01) ==
PROVIDERS: Emergency Provider Emergency Medicine; PCP Family Medicine
DX: R00.1 Bradycardia, unspecified (principal); R53.1 Weakness; E66.9 Obesity, unspecified; I10 Essential (primary) hypertension; E78.5 Hyperlipidemia, unspecified; Z87.891 Personal history of nicotine dependence; Z86.73 Personal history of transient ischemic attack (TIA), and cerebral infarction without residual deficits
CPT/HCPCS: 71045; 80053; 81001; 83605; 84484; 85025; 85610; 85730; 87040; 93005; 99284; A4216

== ENCOUNTER 2023-01-24 07:08 | Observation (INO) | payer MEDICARE, OTHER, SELFPAY ==
[2023-01-24] VITALS (16 sets, daily range): BP systolic 113–188; BP diastolic 79–116; PULSE 60–93; RESP 12–41; TEMP 35.9–36.9; O2SAT 79–99; BMI 31.6
--- NOTE | 2023-01-24 07:10 | ED.RN ---
sob pursed lips tachypnic and and tripoding on arrival. difficulty talking. vgue history. respiratory setting up bipap
--- NOTE | 2023-01-24 07:19 | EKG12_ITS ---
Test Reason : Blood Pressure : / mmHG Vent. Rate : 087 BPM Atrial Rate : 087 BPM P-R Int : 178 ms QRS Dur : 064 ms QT Int : 380 ms P-R-T Axes : 061 085 088 degrees QTc Int : 457 ms Normal sinus rhythm Nonspecific ST abnormality Abnormal ECG Confirmed by JIMMY CORNEJO, JOCELYNN ([id number]), scientific publications editor BETY KIRBY ([id number]) on 01/27/2023 11:03:27 AM Referred By: Jeff Mckay Confirmed By:JOCELYNN MARQUEZ MD
--- NOTE | 2023-01-24 07:22 | ED.VIS.DYS ---
HPI History of Present Illness Chief Complaint: Shortness of Breath Informant: patient and spouse/S.O. Onset/Context/Timing Onset: Month(s) Context: gradual Timing: Continuous Current Severity: Moderate Maximum Severity: Moderate Worsened by: Exertion and Coughing Relieved by: Oxygen Associated Symptoms cough; Negative for fever, clear sputum, white sputum, yellow sputum or green sputum Chest Pain: Positive for None Narrative Narrative: 83-year-old male lives at home recently diagnosed with COPD also has a history of hypertension. He is not on home O2. Both he and family states that he has been short of breath for months is progressively gotten worse. He has audible wheezing at home. He is a nonproductive cough. He denies any chest pain or fever. He is gotten much worse in the last several days. Today was the point that he felt he needed to come to the hospital. He denies any leg pain or swelling. No history of prior DVT or PE. No recent surgery or hospitalization. No leg pain or swelling. No hemoptysis. PE Risk Factors: Negative for Cancer, OCP + Smoking + > 35, Prior DVT or PE, Recent immobilization, Recent surgery or Recent travel Prior similar symptoms: Yes Recent Illness/Hospitalization: No PFSH PFSH Medical History COPD (chronic obstructive pulmonary disease) Hyperlipidemia Hypertension Stroke Home Medications clopidogrel 75 mg tablet 75 mg PO DAILY blood thinner 05/23/20 [History Last Taken 10/27/20] simvastatin 40 mg tablet 40 mg PO QHS cholesterol 05/23/20 [History Last Taken 10/26/20] acetaminophen 500 mg tablet 500 - 1,000 mg PO Q8H PRN PRN Pain 1-10 Or Fever 06/04/20 [History Last Taken 10/26/20] calcium carbonate 600 mg-vitamin D3 20 mcg (800 unit) tablet 1 tab PO BIDCM supplement 10/27/20 [History Last Taken 10/27/20] metoprolol succinate 25 mg tablet,extended release 24 hr 25 mg PO DAILY ##30 10/27/20 [Rx Last Taken Unknown] Allergy/AdvReac Type Severity Reaction Status Date / Time Penicillins Allergy Hives Verified 01/24/23 07:12 adhesive tape AdvReac Other Verified 01/24/23 07:12 fentanyl AdvReac PT UNSURE Verified 01/24/23 07:12 OF REACTION morphine AdvReac PT UNSURE Verified 01/24/23 07:12 OF REACTION Social History Smoking Status: Former smoker ROS ROS ED ROS Narrative Wheezing. Short of breath. Review of Systems ROS Unobtainable: Denies due to encephalopathy Constitutional Constitutional ED: Denies chills or fever(s) Eyes Eyes: Denies blurry vision ENT ENT ED: Denies ear pain Cardiovascular Cardiovascular: Denies chest pain Respiratory/Chest Respiratory/Chest: Reports cough and dyspnea Gastrointestinal Gastrointestinal: Reports diarrhea; Denies abdominal pain, melena, nausea or vomiting Genitourinary Genitourinary ED: Denies dysuria or hematuria Musculoskeletal Musculoskeletal: Denies arthralgias Integumentary Denies abscess Neurologic Neurologic: Denies headache(s) Psychiatric Psychiatric: Denies anxiety or depression Endocrine Endocrinology: Denies cold intolerance Hematologic/Lymphatic Hematologic/Lymphatic: Denies easy bleeding Allergic/Immunologic Allergic/Immunologic ED: Denies mouth swelling EXAM Physical Exam Narrative Exam Narrative: 83-year-old male vital signs show a pulse ox of 79% on room air consistent with hypoxia. 98% on nonrebreather and BiPAP. Initial blood pressure 188/116. He is afebrile. He does not look septic or toxic. H EENT exam unremarkable. Moist with membranes. Neck nontender no JVD. No lymphadenopathy. Lungs show bilateral expiratory wheezing. No rales or rhonchi. Equal symmetrical. Heart regular rhythm rate about 90 no murmur. Chest wall nontender. Abdomen soft nontender. Moving all 4 extremities. Calves are nontender without edema or cords. Neurologically he is very hard of hearing and does not have his hearing aids in. But he is awake and alert. Answering questions and following commands. He is moving all 4 extremities. Const Vital Signs: 01/24/23 07:09 01/24/23 07:13 01/24/23 07:13 Temperature 96.7 F L Temperature Source Temporal Pulse Rate 87 Respiratory Rate 28 H Respiratory Effort Short of Breath Accessory Muscle Use Pursed Lip Retracting Respiratory Depth Shallow Respiratory Pattern Tachypnea Blood Pressure Blood Pressure Mean Pulse Ox 79 98 Oxygen Delivery Method Room Air Non-Rebreather Bi-pap Oxygen Flow Rate (L/min) 15 Fraction of Inspired Oxygen (FIO2) 01/24/23 07:17 01/24/23 07:34 01/24/23 08:23 Temperature Temperature Source Pulse Rate 80 68 Respiratory Rate 41 H 20 H Respiratory Effort Respiratory Depth Respiratory Pattern Tachypnea Blood Pressure 188/116 H 135/87 H Blood Pressure Mean 140 103 Pulse Ox 99 97 Oxygen Delivery Method Room Air Oxygen Flow Rate (L/min) Fraction of Inspired Oxygen (FIO2) 35 Positive well nourished and well developed; Negative for cachectic, contractures or unkempt General Appearance ED: well developed; Negative for unkempt, cachectic, contractures, NAD or pallor Nutritional Appearance: Negative for cachectic HEENT Reports moist mucous membranes atraumatic; Negative for trauma or tenderness Eyes PERRL and EOMs intact bilaterally General Eye ED: Negative for pale conjunctiva Neck no lymphadenopathy, supple and no meningeal signs General: Negative for tenderness Lymph Lymphatic: Negative for other Chest Wall Chest: Negative for other Resp No normal respiratory effort and No clear to auscultation bilaterally Resp Narrative: Prolonged expiratory phase. Expiratory wheezes. Auscultation: wheezes; Negative for rales or rhonchi Cardio regular rate, regular rhythm, S1 normal heart sound, S2 normal heart sound and no murmurs Rate: Negative for bradycardia or tachycardic Rhythm: Negative for abnormal rhythm GI non-tender, non-distended and no masses Inspection: Negative for other Auscultation: normoactive bowel sounds Palpation: soft; Negative for tender or guarding Back/Spine no CVA tenderness and normal to inspection General Back: Negative for CVA tenderness Extremity normal to inspection General Extremety ED: Negative for edema or tenderness General Extremity: Negative for edema Neuro oriented x3 and CN's II-XII intact bilaterally Sensorium / Orientation: alert, oriented to person, oriented to place and oriented to time Speech: speech normal Motor Exam: strength 5/5 throughout Psych mental status grossly normal Appearance: Negative for unkempt Attitude: No agitated Mood & Affect: Negative for depressed or anxious Thought Process: normal thought process Skin no wounds and skin turgor normal General Skin Exam: Negative for jaundice or pallor Lesions: no lesions Rashes: no rashes Trauma: Negative for abrasion MDM MDM MDM Narrative Medical decision making narrative: 83-year-old male shortness of breath and wheezing with a history of COPD. He quit smoking 25 years ago. He is not on home O2. Clinic I think is a COPD exacerbation. Rule out viral syndrome versus cardiac etiology clinically he is never had a DVT or or PE or risk factors. He is not having any chest pain or leg pain or swelling. His most recent echo showed an EF that was normal. Clinically this does not appear to be CHF. He will receive DuoNeb and albuterol aerosols. IV Solu-Medrol. And undergo a cardiac and respiratory evaluation. Repeat exam at 7:45 AM patient is definitely showing significant improvement with BiPAP, aerosols and IV Solu-Medrol. His respiratory rate is decreasing. His oxygenation saturation is 99% at this time on BiPAP. His blood pressure is much improved currently 149/99. He appears more comfortable. He will be re-evaluated and we will try to take him off the BiPAP and start weaning his oxygen and see how he does. Patient doing well at 8:45 AM. I spoke to the hospitalist will be down to admit the patient. Patient has been weaned from BiPAP to 4 L nasal cannula O2. He is still wheezing. History & Record Review Discussion w/independent historian: Patient and Family Additional record(s) reviewed:: Prior inpatient record, Prior outpatient record, Prior ED visit and Prior labs Lab Data Attestation: I reviewed the patient's lab results. Lab results narrative: CBC shows a white count 9.8. H&H of 15.5 and 47. Platelets 195. CBC is unremarkable. Electrolytes show a gap of 5. BUN of 19 creatinine 0.7. Troponin is normal at 11. Chest x-ray shows chronic changes. Labs: Laboratory Results - last 24 hr 01/24/23 01/24/23 07:15 07:15 WBC 9.8 RBC 4.91 Hgb 15.5 Hct 47.2 MCV 96.1 H MCH 31.6 MCHC 32.8 RDW Std Deviation 46.8 H RDW Coeff of Flora 13.2 Plt Count 195 MPV 8.6 Immature Gran % (Auto) 0.500 Neut % (Auto) 66.6 Lymph % (Auto) 19.2 [place] % (Auto) 7.7 Eos % (Auto) 5.6 H Baso % (Auto) 0.4 Absolute Neuts (auto) 6.5 Absolute Lymphs (auto) 1.87 Nucleated RBC % 0 Sodium 140 Potassium 3.7 Chloride 109 H Carbon Dioxide 26.0 Anion Gap 5 BUN 19 H Creatinine 0.77 Estim Creat Clear Calc 73.50 Est GFR (MDRD) Af Amer 124 Est GFR (MDRD) Non-Af 103 BUN/Creatinine Ratio 24.8 H Glucose 172 H Calcium 10.1 Troponin I High Sens 11 Radiography Chest X-Ray - ED: 1 View, Read by ED Physician, Normal, Heart, Lungs, Mediastinum, Bony Structures, No Acute Disease and Chronic Changes Diagnostic Testing: Clinical Impression(s) from Imaging Studies Chest X-Ray 01/24/23 07:45 IMPRESSION: Hyperinflation. No acute abnormality is seen. Electronically Signed: Winston Santos MD at 8:10 EDT , Chest x-ray, portable, single view, interpreted by myself shows no acute process. Chronic changes. No acute disease. No CHF. No effusions. No pneumonia. Rhythm Strip Rhythm Strip: Sinus Rhythm Rate: 87 EKG Initial EKG: Attestation: I personally reviewed and interpreted this EKG as follows: Interpretation: Sinus Rhythm and No Acute Injury Pattern Comments: Normal sinus rhythm rate 87 no acute signs of KS. No significant dysrhythmia. Discharge Plan Triage Chief Complaint: Shortness of Breath ED Provider: Jeff Mckay Dx/Rx/DC Orders Clinical Impression: Acute dyspnea, Hypoxia, COPD exacerbation, History of hypertension Prescriptions: No Action clopidogrel 75 MG tablet 75 mg PO DAILY simvastatin 40 MG tablet 40 mg PO QHS acetaminophen 500 MG tablet 500 - 1,000 mg PO Q8H PRN PRN (Reason: Pain 1-10 Or Fever) calcium carbonate-vitamin D3 1 TAB tablet 1 tab PO BIDCM metoprolol succinate 25 MG tablet extended release 24 hr 25 mg PO DAILY Qty: 30 0RF Primary Care Provider: Jessica Santiago Referrals: Jessica Santiago DO [Primary Care Provider] - Disposition Disposition: Acute Care Hospital [facility]
[2023-01-24] MEDS: MethylPREDNISolone 125 MG/2 ML Vial IV (07:25)
[2023-01-24] MEDS: Ipratropium/Albuterol Sulfate 3 ML AMPUL.NEB INHALATION ×5 (07:32→23:00)
[2023-01-24] MEDS: Albuterol 2.5 MG/3 ML VIAL.NEB. INHALATION (07:32)
--- NOTE | 2023-01-24 07:45 | RAD_ITS ---
STUDY: X-RAY CHEST REASON FOR EXAM: Male, 83 years old. Dyspnea TECHNIQUE: Single AP portable view of the chest. COMPARISON: Comparison is made with prior study dated October 27, 2020. FINDINGS: EKG electrodes are seen. Hyperinflation. Stable mild linear scarring at the lung bases. There is no demonstrated pleural abnormality. Normal size heart. Normal mediastinum and jaime. Normal visualized pulmonary arteries. There is atherosclerotic calcification of the aortic arch with tortuosity. There are diffuse degenerative changes of the visualized thoracic spine. There is degenerative osteoarthritis of the bilateral shoulders. There is no demonstrated abnormality of the visualized soft tissue structures of the upper abdomen. RAD/Chest 1 View (Portable) IMPRESSION: Hyperinflation. No acute abnormality is seen. Electronically Signed: Winston Santos MD at 8:10 EDT ,
[2023-01-24 07:48] LABS: Absolute Lymphocyte Count 1.87 X10^3/uL (0.83-4.51); Absolute Neutrophil Count 6.5 X10^3/uL (2.0-7.7); Basophil# 0.04 X10^3/uL; Basophil% 0.4 % (0-1); Eosinophil# 0.55 X10^3/uL; Eosinophils% 5.6 % (0-5); Hematocrit 47.2 % (40-54); Hemoglobin 15.5 g/dL (13.0-16.5); Lymphocyte # 1.87 X10^3/ul (0.83-4.51); Lymphocyte % 19.2 % (19-41); Mean Corp Hgb Conc 32.8 g/dL (32-36); Mean Corpuscular Hgb 31.6 pg (27.0-32.0); Mean Corpuscular Volume 96.1 fL (80-94); Mean Platelet Vol. 8.6 fl (6.2-12.0); Monocyte# 0.75 X10^3/uL; Monocyte% 7.7 % (0-10); NRBC Flagged by Analyzer 0 % (0-5); Neutrophil % 66.6 % (47-70); Platelet Count 195 K/mm3 (150-450); RBC Distribution Width CV 13.2 % (11.6-14.6); RBC Distribution Width SD 46.8 fl (35.1-43.9); Red Blood Count 4.91 M/mm3 (4.6-6.2); White Blood Count 9.8 K/mm3 (4.4-11.0)
[2023-01-24 08:15] LABS: Anion Gap 5 (5-15); BUN 19 mg/dL (7-18); BUN/Creat Ratio 24.8 RATIO (10-20); Calcium,Total 10.1 mg/dL (8.5-10.1); Chloride 109 mmol/L (98-107); Creatinine, Serum 0.77 mg/dL (0.70-1.30); EST Glomerular Filtration Rate 103 mL/min (>60); Est Glom Filt Rate - Afr Amer 124 mL/min (>60); Glucose 172 mg/dL (74-106); Potassium 3.7 mmol/L (3.5-5.1); Sodium Level 140 mmol/L (136-145); Troponin-I HS 11 pg/mL (3.0-78.0)
--- NOTE | 2023-01-24 09:00 | PCM.HP.STD ---
[facility] - General General Date of Service: 01/24/23 Chief Complaint: Shortness of breath HPI Narrative DEANDRE NEWTON, is a 83 M who presents with shortness of breath. Patient has had been having audible wheezing for the past 6 to 9 months. Over the past week, shortness of breath is gotten worse. Patient presented to the emergency room and he was noted to be hypoxic into the 70s and was started on nonrebreather and BiPAP and then was able to be weaned down to 2 L nasal cannula. Patient is not on oxygen at home. Patient underwent work-up and was diagnosed with a COPD exacerbation and received bronchodilators and methylprednisolone. Recently, patient has undergone pulmonary function test that have confirmed COPD. Patient has not yet seen a reclamation supervisor. Patient has a remote smoking history of around 44 years ago. Patient has previously worked at [employer] and did have some kind of chemical exposure during his time there. [facility] Medical History COPD (chronic obstructive pulmonary disease) Hyperlipidemia Hypertension Stroke Home Medications clopidogrel 75 mg tablet 75 mg PO DAILY blood thinner 05/23/20 [History Last Taken 10/27/20] simvastatin 40 mg tablet 40 mg PO QHS cholesterol 05/23/20 [History Last Taken 10/26/20] acetaminophen 500 mg tablet 500 - 1,000 mg PO Q8H PRN PRN Pain 1-10 Or Fever 06/04/20 [History Last Taken 10/26/20] calcium carbonate 600 mg-vitamin D3 20 mcg (800 unit) tablet 1 tab PO BIDCM supplement 10/27/20 [History Last Taken 10/27/20] metoprolol succinate 25 mg tablet,extended release 24 hr 25 mg PO DAILY ##30 10/27/20 [Rx Last Taken Unknown] Allergy/AdvReac Type Severity Reaction Status Date / Time Penicillins Allergy Hives Verified 01/24/23 07:12 adhesive tape AdvReac Other Verified 01/24/23 07:12 fentanyl AdvReac PT UNSURE Verified 01/24/23 07:12 OF REACTION morphine AdvReac PT UNSURE Verified 01/24/23 07:12 OF REACTION Family History (Updated 01/24/23 @ 09:[address] Aston Wallace DO) Other COPD (chronic obstructive pulmonary disease) Cancer Social History (Updated 01/24/23 @ 09:[address] Aston Wallace, DO) Smoking Status: Former smoker alcohol intake: former ROS ROS Narrative Hard of hearing. Did not bring in his hearing aids today. All review of systems were negative except as mentioned above in the history of present illness and the other review of systems. Vital Signs Vital Signs Vital Signs: 01/24/23 07:09 01/24/23 07:13 01/24/23 07:13 Temperature 35.9 C L Temperature Source Temporal Pulse Rate 87 Respiratory Rate 28 H Respiratory Effort Short of Breath Accessory Muscle Use Pursed Lip Retracting Respiratory Depth Shallow Respiratory Pattern Tachypnea Blood Pressure Blood Pressure Mean Pulse Ox 79 98 Oxygen Delivery Method Room Air Non-Rebreather Bi-pap Oxygen Flow Rate (L/min) 15 Fraction of Inspired Oxygen (FIO2) 01/24/23 07:17 01/24/23 07:34 01/24/23 08:23 Temperature Temperature Source Pulse Rate 80 68 Respiratory Rate 41 H 20 H Respiratory Effort Respiratory Depth Respiratory Pattern Tachypnea Blood Pressure 188/116 H 135/87 H Blood Pressure Mean 140 103 Pulse Ox 99 97 Oxygen Delivery Method Room Air Oxygen Flow Rate (L/min) Fraction of Inspired Oxygen (FIO2) 35 Weight Weight: 94.5 kg Body Mass Index (BMI) 0.1 Physical Exam Const alert and no apparent distress Constitutional Narrative: Very hard of hearing. HEENT normocephalic Neck no lymphadenopathy Neck Narrative: No thyromegaly Resp normal respiratory effort Resp Narrative: Bilateral expiratory wheezes Cardio regular rate, regular rhythm, S1 normal heart sound and S2 normal heart sound GI normal to inspection, nondistended, normoactive bowel sounds, soft to palpation, non-tender and non-distended Extremity normal to inspection and full ROM Psych affect normal Results Lab / Micro Data Attestation: I reviewed the patient's lab results. Lab results narrative: Chest x-ray reviewed and showed no acute pulmonary infiltrate or pulmonary vascular congestion. Result Diagrams: 01/24/23 07:15 01/24/23 07:15 Labs: Laboratory Results - last 24 hr 01/24/23 07:15: WBC 9.8, RBC 4.91, Hgb 15.5, Hct 47.2, MCV 96.1 H, MCH 31.6, MCHC 32.8, RDW Std Deviation 46.8 H, RDW Coeff of Flora 13.2, Plt Count 195, MPV 8.6, Immature Gran % (Auto) 0.500, Neut % (Auto) 66.6, Lymph % (Auto) 19.2, [place] % (Auto) 7.7, Eos % (Auto) 5.6 H, Baso % (Auto) 0.4, Absolute Neuts (auto) 6.5, Absolute Lymphs (auto) 1.87, Nucleated RBC % 0 01/24/23 07:15: Sodium 140, Potassium 3.7, Chloride 109 H, Carbon Dioxide 26.0, Anion Gap 5, BUN 19 H, Creatinine 0.77, Estim Creat Clear Calc 73.50, Est GFR (MDRD) Af Amer 124, Est GFR (MDRD) Non-Af 103, BUN/Creatinine Ratio 24.8 H, Glucose 172 H, Calcium 10.1, Troponin I High Sens 11 Micro: Microbiology 01/24/23 07:15 Nasal Secretion SARS-CoV-2 & FLU Antigen (Rapid) - Final Rhythm Strip Rhythm Strip: Sinus Rhythm Rate: 87 Radiology Impression Chest X-Ray 01/24/23 07:45 IMPRESSION: Hyperinflation. No acute abnormality is seen. Electronically Signed: Winston Santos MD at 8:10 EDT , Assessment & Plan Assessment/Plan (1) Acute exacerbation of COPD with asthma: PLAN: Per the patient and his , he has recently had PFTs out of confirm COPD. I do not have those records available to evaluate. Clinically this is concerning for COPD exacerbation Will continue with bronchodilators as well as methylprednisolone. Anticipate patient should be improved enough tomorrow that we can transition over to prednisone Patient follow-up with pulmonary as outpatient. (2) Acute respiratory failure with hypoxia: PLAN: Patient was 79% on room air and and respiratory distress with respiratory rate of 28. Placed essentially on a nonrebreather than a BiPAP. With the treatments of the COPD he has improved down to 2 L nasal cannula. The vital signs state that he is on room air at 97% but he is actually on 2 L nasal cannula. Wean oxygen as tolerated Check home oxygen evaluation in the morning PLAN: Plan Chronic conditions CVA: Continue with clopidogrel and statin Hypertension: Continue with metoprolol VTE prophylaxis: Not indicated given current observation status. Charges/Coding Visit Charges Inpatient E&M: 48145 Init Hosp L2
--- NOTE | 2023-01-24 11:09 | NURSING ---
voice mail left for PCP's office requesting up to date med list be faxed over.
[2023-01-24] MEDS: 0.9% Saline Lock 10 ML Syringe IV ×3 (13:32→21:54)
[2023-01-24] MEDS: Tamsulosin HCl 0.4 MG Capsule PO (18:39)
[2023-01-24] MEDS: Timolol 0.5% 5ML OPTH.BTL 1 DRP EACH EYE (18:39)
[2023-01-24] MEDS: Loratadine 10 MG Tablet PO (18:41)
[2023-01-24] MEDS: Atorvastatin Calcium 20 MG Tablet PO (18:41)
[2023-01-24] MEDS: Latanoprost 0.005% 1 Bottle 1 DRP EACH EYE (18:41)
[2023-01-25] VITALS (9 sets, daily range): BP systolic 149–163; BP diastolic 74–101; PULSE 60–94; RESP 16–21; TEMP 36.6–37; O2SAT 81–98
[2023-01-25] MEDS: 0.9% Saline Lock 10 ML Syringe IV (06:16)
[2023-01-25] MEDS: Timolol 0.5% 5ML OPTH.BTL 1 DRP EACH EYE (06:32)
[2023-01-25] MEDS: Losartan Potassium 50 MG Tablet PO (06:59)
[2023-01-25] MEDS: Metoprolol(XL)Succ 25 MG Tablet PO (07:00)
[2023-01-25] MEDS: Ipratropium/Albuterol Sulfate 3 ML AMPUL.NEB INHALATION (07:06)
--- NOTE | 2023-01-25 07:17 | PN.HOSP_ITS ---
Reason for Visit Reason for Visit: Diagnoses Chronic obstructive pulmonary disease with (acute) exacerbation (01/24/23) Unspecified asthma with (acute) exacerbation (01/24/23) Acute respiratory failure with hypoxia (01/24/23) Subjective Subjective Breathing better. Objective Data Objective Data Vital Signs: Vital Signs Temp Pulse Resp BP Pulse Ox O2 Del Method O2 Flow Rate 36.6 C 90 18 156/101 H 97 Nasal Cannula 2 01/25/23 05:40 01/25/23 07:00 01/25/23 05:40 01/25/23 07:00 01/25/23 06:23 01/25/23 06:23 01/25/23 06:23 FiO2 97 01/24/23 10:59 Oxygen Flow Rate (L/min) [ 5 AMBULATING with Oxygen #3] Oxygen Flow Rate (L/min) [ 4 AMBULATING with Oxygen #2] Oxygen Flow Rate (L/min) [ 2 AMBULATING with Oxygen #1] Oxygen Flow Rate (L/min) [ 0 AMBULATING on Room Air] Oxygen Flow Rate (L/min) [At 0 REST on Room Air] Oxygen Flow Rate (L/min) 2 Oxygen Delivery Method Nasal Cannula Weight: 91.58 kg Body Mass Index (BMI) 31.6 Intake & Output: Intake and Output for Last 24 Hours 01/23/23 01/24/23 01/25/23 23:59 23:59 23:59 Intake Total 660 / 660 Balance 660 / 660 Lab / Micro Data Result Diagrams: 01/24/23 07:15 01/24/23 07:15 Labs: Laboratory Results - last 24 hr 01/24/23 07:15: WBC 9.8, RBC 4.91, Hgb 15.5, Hct 47.2, MCV 96.1 H, MCH 31.6, MCHC 32.8, RDW Std Deviation 46.8 H, RDW Coeff of Flora 13.2, Plt Count 195, MPV 8.6, Immature Gran % (Auto) 0.500, Neut % (Auto) 66.6, Lymph % (Auto) 19.2, [place] % (Auto) 7.7, Eos % (Auto) 5.6 H, Baso % (Auto) 0.4, Absolute Neuts (auto) 6.5, Absolute Lymphs (auto) 1.87, Nucleated RBC % 0 01/24/23 07:15: Sodium 140, Potassium 3.7, Chloride 109 H, Carbon Dioxide 26.0, Anion Gap 5, BUN 19 H, Creatinine 0.77, Estim Creat Clear Calc 73.50, Est GFR (MDRD) Af Amer 124, Est GFR (MDRD) Non-Af 103, BUN/Creatinine Ratio 24.8 H, Glucose 172 H, Calcium 10.1, Troponin I High Sens 11 Micro: Microbiology 01/24/23 07:15 Nasal Secretion SARS-CoV-2 & FLU Antigen (Rapid) - Final Radiography Diagnostic Testing: Radiology Impression Chest X-Ray 01/24/23 07:45 IMPRESSION: Hyperinflation. No acute abnormality is seen. Electronically Signed: Winston Santos MD at 8:10 EDT , Rhythm Strip Rhythm Strip: Sinus Rhythm Rate: 87 Physical Exam Const alert and no apparent distress HEENT head/scalp atraumatic and moist oral mucous membranes Resp normal respiratory effort and no retractions Cardio regular rate, regular rhythm, S1 normal heart sound and S2 normal heart sound GI normal to inspection, nondistended, normoactive bowel sounds and soft to palpation Assessment & Plan Assessment/Plan (1) Acute exacerbation of COPD with asthma: PLAN: Per the patient and his , he has recently had PFTs out of confirm COPD. I do not have those records available to evaluate. Clinically this is concerning for COPD exacerbation Will continue with bronchodilators as well as methylprednisolone. Anticipate patient should be improved enough tomorrow that we can transition over to prednisone Patient follow-up with pulmonary as outpatient. (2) Acute respiratory failure with hypoxia: PLAN: Patient was 79% on room air and and respiratory distress with respiratory rate of 28. Placed essentially on a nonrebreather than a BiPAP. With the treat ments of the COPD he has improved down to 2 L nasal cannula. The vital signs state that he is on room air at 97% but he is actually on 2 L nasal cannula. Wean oxygen as tolerated Oxygen 2 with rest. 5 with activity. PLAN: Plan Chronic conditions * CVA: Continue with clopidogrel and statin * Hypertension: Continue with metoprolol VTE prophylaxis: Not indicated given current observation status. Charges/Coding Visit Charges Inpatient E&M: 18222 Subs Hosp L2
--- NOTE | 2023-01-25 09:32 | CASEMGMT ---
JO ANN CONNER NOTE: Home O2 testing completed. Pt qualifies for O2 @ 5 l/m w/exertion. JO ANN CONNER to room. Introduced self and role to pt and granddaughter, who is at bedside. Discussed home O2 and DME co's. Pt made aware [employer] is affiliated w[facility] and [place] [facility]iscussed [place] set up and questions answered. Pt does not have a pulse ox, but granddaughter states it is affordable to get one and she plans to pick one up this morning. Discussed HHC and CCN. Pt uses a walker @ baseline, but [place], and does not meet criteria for HHC d/t not being homebound. GD made aware, if pt would become homebound, to discuss HHC w/pt's PCP, if pt interested in HHC. She voices understanding. GD does think CCN may be beneficial. Given CCN rac card w/contact info. Pt and GD have no further discharge planning needs or concerns. [facility] form explained re: Observation status for treatment of COPD exacerbation.? Explained hospitalization will be paid per?his insurance policy for Outpatient billing?and condition will continue to be evaluated for Inpt necessity. Also let pt know that [facility] sends paper in the billing packet with their phone number if questions arise. Discussed Pharmacy section of [facility] form and self administered medication guideline.? Pt verbalizes understanding and does not have further questions. ?Form signed, copy made and placed in chart, and original given to pt. Shashi LEE RN, CM
--- NOTE | 2023-01-25 10:03 | DCINST_ITS ---
Discharge Instructions Diet Discharge Diet: No restrictions Dressing / Incision Call your doctor if you observe: Shortness of breath Follow Up Care Test Results: Test results from this visit will be discussed in further detail at your follow- up appointment, if applicable. Discharge Plan Admission Admit Date/Time: 01/24/23 08:56 Primary Reason for Your Visit: COPD exacerbatoin. Attending Provider: Aston Wallace Primary Care Provider: Jessica Santiago Discharge Orders/Prescriptions Prescriptions: New prednisone 20 mg tablet 40 mg PO DAILY Qty: 10 0RF albuterol sulfate 90 mcg/actuation HFA aerosol inhaler 2 puff inhalation Q6H PRN (Reason: shortness of breath or wheezing) Qty: 8.5 0RF Continued clopidogrel 75 MG tablet 75 mg PO DAILY losartan 50 mg tablet 50 mg PO DAILY Label Comments: TAKE 1 TABLET BY MOUTH DAILY latanoprost 0.005 % drops 1 drp EACH EYE QHS Label Comments: Instill 1 drop into both eyes once a day pravastatin 40 mg tablet 40 mg PO DAILY Label Comments: TAKE 1 TABLET BY MOUTH EVERY DAY tamsulosin 0.4 mg capsule 0.4 mg PO QHS Label Comments: TAKE 1 CAPSULE BY MOUTH AT BEDTIME ergocalciferol (vitamin D2) 1,250 mcg (50,000 unit) capsule 1,250 mcg PO UD Label Comments: TAKE 1 CAPSULE BY MOUTH twice a week Rx Instructions: 2x/week takes on and saturdays timolol maleate 0.5 % drops 1 drp EACH EYE BID Label Comments: Instill 1 drop in both eyes twice a day ipratropium bromide 21 mcg (0.03 %) spray,non-aerosol 2 spray INTRANASAL BID Label Comments: use 2 (TWO) sprays IN EACH NOSTRIL TWICE DAILY levocetirizine 5 mg tablet 5 mg PO QHS Label Comments: TAKE 1 TABLET BY MOUTH AT BEDTIME Combivent Respimat 20-100 mcg/actuation Mist 1 puff INHALATION Q6H Referrals / Follow Up: [facility] [Provider Group] - Within 1 Month Jessica Santiago DO [Primary Care Provider] - Within 2 Weeks Disposition Disposition (needs filled in before D/C Order can be placed): Home, Self Care
--- NOTE | 2023-01-25 10:12 | DS.PCM_ITS ---
Providers Date of Admission: 01/24/23 Primary Care Physician: Dr. Jessica Santiago, Reason For Visit: COPD EX Diagnosis Discharge Diagnosis (1) Acute exacerbation of COPD with asthma: Status: Chronic Code(s): J44.1 - Chronic obstructive pulmonary disease with (acute) exacerbation; J45.901 - Unspecified asthma with (acute) exacerbation Plan: Per the patient and his , he has recently had PFTs out of confirm COPD. I do not have those records available to evaluate. Clinically this is concerning for COPD exacerbation Will continue with bronchodilators as well as methylprednisolone. Anticipate patient should be improved enough tomorrow that we can transition over to prednisone Patient follow-up with pulmonary as outpatient. (2) Acute respiratory failure with hypoxia: Status: Acute Code(s): J96.01 - Acute respiratory failure with hypoxia Plan: Patient was 79% on room air and and respiratory distress with respiratory rate of 28. Placed essentially on a nonrebreather than a BiPAP. With the treatments of the COPD he has improved down to 2 L nasal cannula. The vital signs state that he is on room air at 97% but he is actually on 2 L nasal cannula. Wean oxygen as tolerated Oxygen 2 with rest. 5 with activity. Plan Chronic conditions * CVA: Continue with clopidogrel and statin * Hypertension: Continue with metoprolol VTE prophylaxis: Not indicated given current observation status. Medications at Discharge Home Medications clopidogrel 75 mg tablet 75 mg PO DAILY blood thinner 05/23/20 ergocalciferol (vitamin D2) 1,250 mcg (50,000 unit) capsule 1,250 mcg PO UD Check with primary doctor 01/24/23 ipratropium 20 mcg-albuterol 100 mcg/actuation mist for inhalation (Combivent Respimat) 1 puff inhalation Q6H COPD 01/24/23 ipratropium bromide 21 mcg (0.03 %) nasal spray 2 spray intranasal BID seasonal allergies 01/24/23 latanoprost 0.005 % eye drops 1 drp EACH EYE QHS Check with primary doctor 01/24/23 levocetirizine 5 mg tablet 5 mg PO QHS seasonal allergies 01/24/23 losartan 50 mg tablet 50 mg PO DAILY high blood pressure 01/24/23 pravastatin 40 mg tablet 40 mg PO DAILY 01/24/23 tamsulosin 0.4 mg capsule 0.4 mg PO QHS Check with primary doctor 01/24/23 timolol maleate 0.5 % eye drops 1 drp EACH EYE BID Check with primary doctor 01/24/23 albuterol sulfate 90 mcg/actuation aerosol inhaler 2 puff inhalation Q6H PRN shortness of breath or wheezing #8.5 grams 01/25/23 prednisone 20 mg tablet 40 mg PO DAILY #10 tabs 01/25/23 Hospital Course Operations None Procedures None Summary of Care Provided Minutes Spent on Discharge: 28 Weight / BMI Weight Weight: 91.58 kg Body Mass Index (BMI) 31.6 ABG / Lab / Microbiology Data Result Diagrams: 01/24/23 07:15 01/24/23 07:15 Microbiology: Microbiology 01/24/23 07:15 Nasal Secretion SARS-CoV-2 & FLU Antigen (Rapid) - Final D/C Instructions Discharge Diet: No restrictions Call your doctor if you observe: Shortness of breath Meaningful Use Info Meaningful Use Diagnoses (Choose all that apply): None applicable Discharge Plan Admission Admit Date/Time: 01/24/23 08:56 Primary Reason for Your Visit: COPD exacerbatoin. Attending Provider: Aston Wallace Primary Care Provider: Jessica Santiago Discharge Orders/Prescriptions Prescriptions: New prednisone 20 mg tablet 40 mg PO DAILY Qty: 10 0RF albuterol sulfate 90 mcg/actuation HFA aerosol inhaler 2 puff inhalation Q6H PRN (Reason: shortness of breath or wheezing) Qty: 8.5 0RF Continued clopidogrel 75 MG tablet 75 mg PO DAILY losartan 50 mg tablet 50 mg PO DAILY Label Comments: TAKE 1 TABLET BY MOUTH DAILY latanoprost 0.005 % drops 1 drp EACH EYE QHS Label Comments: Instill 1 drop into both eyes once a day pravastatin 40 mg tablet 40 mg PO DAILY Label Comments: TAKE 1 TABLET BY MOUTH EVERY DAY tamsulosin 0.4 mg capsule 0.4 mg PO QHS Label Comments: TAKE 1 CAPSULE BY MOUTH AT BEDTIME ergocalciferol (vitamin D2) 1,250 mcg (50,000 unit) capsule 1,250 mcg PO UD Label Comments: TAKE 1 CAPSULE BY MOUTH twice a week Rx Instructions: 2x/week takes on and saturdays timolol maleate 0.5 % drops 1 drp EACH EYE BID Label Comments: Instill 1 drop in both eyes twice a day ipratropium bromide 21 mcg (0.03 %) spray,non-aerosol 2 spray INTRANASAL BID Label Comments: use 2 (TWO) sprays IN EACH NOSTRIL TWICE DAILY levocetirizine 5 mg tablet 5 mg PO QHS Label Comments: TAKE 1 TABLET BY MOUTH AT BEDTIME Combivent Respimat 20-100 mcg/actuation Mist 1 puff INHALATION Q6H Referrals / Follow Up: [facility] [Provider Group] - Within 1 Month Jessica Santiago DO [Primary Care Provider] - Within 2 Weeks Disposition Disposition (needs filled in before D/C Order can be placed): Home, Self Care Charges/Coding Visit Charges Inpatient E&M: 53293 Disch Hosp
== END 2023-01-25 14:03 | disposition home or self-care (01) ==
LOC: ED 08:04 → MS3 10:19
PROVIDERS: Emergency Provider Emergency Medicine; PCP Family Medicine; Referring Provider Emergency Medicine
DX: J44.1 Chronic obstructive pulmonary disease with (acute) exacerbation (principal); J96.01 Acute respiratory failure with hypoxia; Z87.891 Personal history of nicotine dependence; E78.5 Hyperlipidemia, unspecified; I10 Essential (primary) hypertension; Z79.899 Other long term (current) drug therapy; Z79.02 Long term (current) use of antithrombotics/antiplatelets
CPT/HCPCS: 71045; 80048; 84484; 85025; 87428; 93005; 94002; 94640; 94667; 94668; 94762; 96374; 96376; 99221; 99252; 99285; A4216; G0378; G0463

== ENCOUNTER → 2023-02-18 | Outpatient (CLI) | payer MEDICARE, OTHER, SELFPAY ==
[2023-02-18 12:10] LABS: Absolute Neutrophil Count 6.8 X10^3/uL (2.0-7.7); Basophil# 0.07 X10^3/uL; Basophil% 0.7 % (0-1); Eosinophil# 1.05 X10^3/uL; Hematocrit 47.5 % (40-54); Hemoglobin 15.8 g/dL (13.0-16.5); Lymphocyte % 16.1 % (19-41); Mean Corp Hgb Conc 33.3 g/dL (32-36); Mean Corpuscular Hgb 31.3 pg (27.0-32.0); Mean Corpuscular Volume 94.1 fL (80-94); Mean Platelet Vol. 8.5 fl (6.2-12.0); Monocyte# 0.82 X10^3/uL; Monocyte% 7.8 % (0-10); NRBC Flagged by Analyzer 0 % (0-5); Neutrophil # 6.83 X10^3/uL (2.7-7.7); Neutrophil % 64.6 % (47-70); Platelet Count 228 K/mm3 (150-450); RBC Distribution Width CV 12.8 % (11.6-14.6); Red Blood Count 5.05 M/mm3 (4.6-6.2); White Blood Count 10.6 K/mm3 (4.4-11.0)
[2023-02-23 15:07] LABS: Aspirgillus flavus Negative (Neg:<1:1); Aspirgillus fumigatus Negative (Neg:<1:1); Aspirgillus niger Negative (Neg:<1:1); Immunoglobulin E 542 IU/mL (6-495)
[2023-02-24 18:07] LABS: Alternaria tenuis <0.10 kU/L (Class 0); Ash, White <0.10 kU/L (Class 0); Aspergillus fumigatus <0.10 kU/L (Class 0); Bermuda Grass <0.10 kU/L (Class 0); Birch <0.10 kU/L (Class 0); Black Walnut <0.10 kU/L (Class 0); Cat Hair / Dander,Stand <0.10 kU/L (Class 0); Cedar, Mountain <0.10 kU/L (Class 0); Cladosporium herbarum <0.10 kU/L (Class 0); Cockroach, American <0.10 kU/L (Class 0); Cottonwood <0.10 kU/L (Class 0); D farinae Mite <0.10 kU/L (Class 0); D pteronyssinus <0.10 kU/L (Class 0); Dog Epithelia <0.10 kU/L (Class 0); Elm, American White <0.10 kU/L (Class 0); Immunoglobulin E 527 IU/mL (6-495); Maple/Box Elder <0.10 kU/L (Class 0); Mouse Urine <0.10 kU/L (Class 0); Mulberry, White <0.10 kU/L (Class 0); Oak, White <0.10 kU/L (Class 0); Pecan <0.10 kU/L (Class 0); Penicillium Notatum <0.10 kU/L (Class 0); Pigweed, Rough <0.10 kU/L (Class 0); Ragweed, Short/Common <0.10 kU/L (Class 0); Russian Thistle <0.10 kU/L (Class 0); Sheep Sorrel <0.10 kU/L (Class 0); Sycamore, American <0.10 kU/L (Class 0); Timothy Grass <0.10 kU/L (Class 0)
== END | disposition home or self-care (01) ==
LOC: PAVLAB 11:42
PROVIDERS: PCP Family Medicine; Referring Provider Internal Medicine Critical Care Medicine; Visit Provider Internal Medicine Critical Care Medicine
DX: J44.9 Chronic obstructive pulmonary disease, unspecified (principal)
CPT/HCPCS: 36415; 82785; 85025; 86003; 86606

== ENCOUNTER → 2023-03-27 | Outpatient (CLI) | payer MEDICARE, OTHER, SELFPAY ==
[2023-03-27 12:34] VITALS: PULSE 52; PULSE 54; PULSE 71; PULSE 75; PULSE 81; PULSE 85; PULSE 90; O2SAT 89; O2SAT 90; O2SAT 91; O2SAT 92; O2SAT 95; O2SAT 96
--- NOTE | 2023-03-28 08:33 | WT_ITS ---
PSN 6 Minute Walk Test 6 Minute Walk Test 6 Minute Walk Test: 6 Minute Walk Test PSN:6-Minute Walk Test Start: 03/27/23 12:34 Freq: Status: Active Protocol: [id number] Document 03/27/23 12:34 [facility] (Rec: 03/27/23 12:38 [facility] [id number]) 6 Minute Walk Test Date Performed 03/27/23 Time Performed 12:30 Height 5 ft 6 in Weight: 90.718 kg Weight in Pounds 200.[address]: Dr. Clark Assistive device used: None Pre-test Oxygen Delivery Method Room Air Pulse Ox (%) 96 Pulse Rate (60-100 beats/min) 52 L Dyspnea Magdalena Scale (0-10) 0 Exertion Magdalena Scale (6-20) 6 1st minute Oxygen Delivery Method Room Air Pulse Ox (%) 92 Pulse Rate (60-100 beats/min) 71 2nd minute Oxygen Delivery Method Room Air Pulse Ox (%) 90 Pulse Rate (60-100 beats/min) 90 3rd minute Oxygen Delivery Method Room Air Pulse Ox (%) 91 Pulse Rate (60-100 beats/min) 81 4th minute Oxygen Delivery Method Room Air Pulse Ox (%) 89 Pulse Rate (60-100 beats/min) 90 5th minute Oxygen Delivery Method Room Air Pulse Ox (%) 91 Pulse Rate (60-100 beats/min) 85 6th minute Oxygen Delivery Method Room Air Pulse Ox (%) 92 Pulse Rate (60-100 beats/min) 75 Dyspnea Magdalena Scale (0-10) 1 Exertion Magdalena Scale (6-20) 15 Post-test Oxygen Delivery Method Room Air Pulse Ox (%) 95 Pulse Rate (60-100 beats/min) 54 L Full Laps Walked 8 Partial Lap, Number of Tiles Walked 19 Total Distance Walked (ft) 491 Interpretation Interpretation: The patient was noted to have a saturation of 96% at rest, but did desaturate as low as 89% with ambulation. No significant tachycardia was noted. In total, the patient traveled only 491 feet over the course of 6 minutes on room air with no assistive devices. These findings are consistent with a respiratory limitation exercise tolerance. Recommendations Recommendations: Patient requires no supplemental oxygen at this time, but will need to be followed closely level of desaturation.
== END | disposition home or self-care (01) ==
LOC: PSN 11:54
PROVIDERS: PCP Family Medicine; Referring Provider Internal Medicine Critical Care Medicine; Visit Provider Internal Medicine Critical Care Medicine
DX: J44.9 Chronic obstructive pulmonary disease, unspecified (principal)
CPT/HCPCS: 94618

== ENCOUNTER 2023-07-29 10:10 | Emergency (ER) | payer MEDICARE, OTHER, SELFPAY ==
[2023-07-29] VITALS (10 sets, daily range): BP systolic 124–179; BP diastolic 69–97; PULSE 60–72; RESP 16–26; TEMP 36.6–37; O2SAT 96–99; BMI 35.3
--- NOTE | 2023-07-29 10:20 | RAD_ITS ---
STUDY: X-RAY CHEST REASON FOR EXAM: Male, 83 years old. Dyspnea. TECHNIQUE: Single frontal view of the chest. COMPARISON: January 24, 2023 FINDINGS: Cardiomegaly, marked aortic tortuosity with calcification, prominent central pulmonary arteries and hyperinflation with mild interstitial prominence bilaterally, all unchanged. No interval development of an acute or emergent finding. Moderate arthrosis of both glenohumeral joints, right greater than left, unchanged. No abnormality of the visualized soft tissue structures of the upper abdomen. RAD/Chest 1 View (Portable) IMPRESSION: Stable chest with no interval development of an acute or emergent finding. Electronically Signed: Feroz Clark MD at 11:20 EDT ,
--- NOTE | 2023-07-29 10:22 | EDS_ITS ---
HPI History of Present Illness Chief Complaint: Shortness of Breath Detail of Chief Complaint: Shortness of breath Informant: patient and spouse/S.O. Narrative Narrative: Patient presents with shortness of breath that started about 2 weeks ago. Patient complains of cough at times bringing up clear phlegm and dark phlegm and yellow phlegm. He denies any fevers. They have been checking his O2 sat at home and yesterday was around 94%. He try to get in with his art therapy specialist but unable to. Patient has history of COPD. Patient does not wear home O2. He has not had a fever. He denies sick contacts. He denies chest pain. Denies recent travel or surgery. Patient states that he has been using his inhalers. [facility] Medical History BPH (benign prostatic hyperplasia) Closed left hip fracture COPD (chronic obstructive pulmonary disease) Foot drop, left Glucose intolerance Hip fracture requiring operative repair HLD (hyperlipidemia) HTN (hypertension) Hyperlipidemia Hypertension Presbycusis Prostate enlargement Stroke Stroke Vitamin D deficiency Home Medications clopidogrel 75 mg tablet 75 mg PO DAILY blood thinner 05/23/20 [History Last Taken 10/27/20] ergocalciferol (vitamin D2) 1,250 mcg (50,000 unit) capsule 1,250 mcg PO UD Check with primary doctor 01/24/23 [History Last Taken Unknown] ipratropium 20 mcg-albuterol 100 mcg/actuation mist for inhalation (Combivent Respimat) 2 puff inhalation Q6H COPD 01/24/23 [History Last Taken Unknown] latanoprost 0.005 % eye drops 1 drp EACH EYE QHS Check with primary doctor 01/24/23 [History Last Taken Unknown] losartan 50 mg tablet 50 mg PO DAILY high blood pressure 01/24/23 [History Last Taken Unknown] pravastatin 40 mg tablet 40 mg PO DAILY 01/24/23 [History Last Taken Unknown] tamsulosin 0.4 mg capsule 0.4 mg PO QHS Check with primary doctor 01/24/23 [History Last Taken Unknown] timolol maleate 0.5 % eye drops 1 drp EACH EYE BID Check with primary doctor 01/24/23 [History Last Taken Unknown] albuterol sulfate 90 mcg/actuation aerosol inhaler 2 puff inhalation Q6H PRN shortness of breath or wheezing #8.5 grams 01/25/23 [Rx Last Taken Unknown] budesonide-formoterol HFA 160 mcg-4.5 mcg/actuation aerosol inhaler (Symbicort) 2 puff inhalation BID #10.2 grams 02/18/23 [Rx Last Taken Unknown] levofloxacin 750 mg tablet 750 mg PO DAILY #7 tabs 07/29/23 [Rx Last Taken Unknown] prednisone 20 mg tablet 20 mg PO BID #10 tabs 07/29/23 [Rx Last Taken Unknown] Allergy/AdvReac Type Severity Reaction Status Date / Time Penicillins Allergy Hives Verified 07/29/23 10:27 adhesive tape AdvReac Other Verified 07/29/23 10:27 fentanyl AdvReac PT UNSURE Verified 07/29/23 10:27 OF REACTION morphine AdvReac PT UNSURE Verified 07/29/23 10:27 OF REACTION Family History Other COPD (chronic obstructive pulmonary disease) Cancer Surgical History H/O Spinal surgery History of open reduction and internal fixation (ORIF) procedure History of orthopedic surgery Total knee replacement status Social History Smoking Status: Former smoker Tobacco: How many years used: 30 alcohol intake: former ROS ROS ED Review of Systems ROS Unobtainable: other Constitutional Constitutional ED: Reports lethargy; Denies chills, fever(s), sweats or weight loss Eyes Eyes: Denies blurry vision, change in vision or diplopia ENT ENT ED: Denies rhinorrhea or sore throat Cardiovascular Cardiovascular: Denies chest pain, orthopnea or racing heartbeat Respiratory/Chest Respiratory/Chest: Reports cough, dyspnea, dyspnea on exertion and sputum; Denies orthopnea Gastrointestinal Gastrointestinal: Denies abdominal pain, diarrhea, nausea or vomiting Genitourinary Genitourinary ED: Denies dysuria, hematuria or urinary frequency Musculoskeletal Musculoskeletal: Denies arthralgias, back pain, myalgias or neck pain Integumentary Denies abscess, Abrasions or rash Neurologic Neurologic: Denies headache(s) or weakness Psychiatric Psychiatric: Denies anxiety, depression or suicidal thoughts Endocrine Endocrinology: Denies polydipsia, polyphagia or polyuria Hematologic/Lymphatic Hematologic/Lymphatic: Denies easy bleeding, easy bruising or lymphadenopathy Allergic/Immunologic Allergic/Immunologic ED: Denies mouth swelling, tongue swelling or urticaria EXAM Physical Exam Const Vital Signs: 07/29/23 10:32 07/29/23 10:20 07/29/23 10:37 Temperature 97.8 F Temperature Source Temporal Pulse Rate 66 Respiratory Rate 26 H Respiratory Effort Short of Breath Labored Respiratory Depth Normal Respiratory Pattern Tachypnea Blood Pressure 179/97 H Blood Pressure Mean 124 Pulse Ox 97 Oxygen Delivery Method Nasal Cannula Nasal Cannula Nasal Cannula Oxygen Flow Rate (L/min) 1.5 1.5 1.5 07/29/23 10:28 Temperature Temperature Source Pulse Rate 67 Respiratory Rate 19 H Respiratory Effort Respiratory Depth Respiratory Pattern Tachypnea Blood Pressure Blood Pressure Mean Pulse Ox Oxygen Delivery Method Oxygen Flow Rate (L/min) Positive well nourished and well developed General Appearance ED: well developed and NAD HEENT Reports TM's clear and moist mucous membranes normocephalic and atraumatic; Negative for trauma or tenderness Tympanic Membrane ED: Yes TM's clear Eyes PERRL and EOMs intact bilaterally General Eye ED: Negative for pale conjunctiva or scleral icterus Neck no lymphadenopathy, supple and no JVD General: Negative for tenderness Chest Wall inspection of chest normal and palpation of chest normal Chest: Negative for tenderness Resp Resp Narrative: Patient with tachypnea and some mild conversational dyspnea. No accessory muscle use or retractions. Patient was hypoxic on arrival to the ER with a pulse ox of 84% on room air. Effort and Inspection: Negative for respiratory distress or pain with movement Auscultation: wheezes; Negative for rhonchi or diminished lung sounds Cardio regular rate, regular rhythm, S1 normal heart sound, S2 normal heart sound and no murmurs Peripheral Pulses: pulses 2+ throughout GI normal to inspection, nondistended, normoactive bowel sounds, soft to palpation, non-tender, non-distended and no masses Back/Spine no CVA tenderness and no thoracic nor lumbar tenderness Extremity normal to inspection General Extremety ED: Negative for edema General Extremity: Negative for edema Neuro oriented x3, CN's II-XII intact bilaterally, no sensory deficits noted and gait normal Sensorium / Orientation: awake, alert, oriented to person, oriented to place and oriented to time Motor Exam: strength 5/5 throughout and strength abnormal Psych mental status grossly normal Skin no rashes or lesions noted and no wounds MDM MDM MDM Narrative Medical decision making narrative: Patient with worsening cough and exertional dyspnea over the last 2 weeks. In the differential would be COPD exacerbation versus pneumonia versus CHF and less likely PE. Patient has cough at times productive. IV line established. CBC with differential white count of 9.2 with hemoglobin 15 and platelet count of 224. Chemistries unremarkable. Troponin was normal at 8. EKG obtained showed a sinus rhythm with a rate of 69 bpm with no acute ST segment changes. Chest x- ray was unremarkable for pneumonia. Patient received DuoNeb aerosol as well as albuterol aerosol and given Solu-Medrol IV. After treatment markedly improved and moving good air. [facility] sat did not drop below 92% with ambulation. Clinically he looks well. COVID and flu testing were negative. At this point he was started on Levaquin IV. We will discharge patient to home with a prescription for prednisone and Levaquin. Advised to follow-up with his art therapy specialist within next 3 to 5 days. Advised to return if increasing shortness of breath or condition should worsen anyway. Lab Data Attestation: I reviewed the patient's lab results. Labs: Laboratory Results - last 24 hr 07/29/23 10:36 WBC 9.2 RBC 5.01 Hgb 15.5 Hct 47.0 MCV 93.8 MCH 30.9 MCHC 33.0 RDW Std Deviation 45.5 H RDW Coeff of Flora 13.3 Plt Count 224 MPV 8.3 Immature Gran % (Auto) 0.900 Neut % (Auto) 72.2 H Lymph % (Auto) 11.5 L Placer % (Auto) 7.2 Eos % (Auto) 7.5 H Baso % (Auto) 0.7 Absolute Neuts (auto) 6.7 Absolute Lymphs (auto) 1.06 Nucleated RBC % 0 Sodium 139 Potassium 4.0 Chloride 108 H Carbon Dioxide 29.0 Anion Gap 2 L BUN 15 Creatinine 0.77 Estim Creat Clear Calc 49.62 Est GFR (MDRD) Af Amer 124 Est GFR (MDRD) Non-Af 102 BUN/Creatinine Ratio 19.5 Glucose 147 H Lactic Acid 1.5 Calcium 9.7 Troponin I High Sens 8 Radiography Diagnostic Testing: Clinical Impression(s) from Imaging Studies Chest X-Ray 07/29/23 10:20 IMPRESSION: Stable chest with no interval development of an acute or emergent finding. Electronically Signed: Feroz Clark MD at 11:20 EDT , 1 view chest x-ray obtained interpreted by myself as no evidence of infiltrate or acute disease process. Radiology in agreement. EKG Initial EKG: Attestation: I personally reviewed and interpreted this EKG as follows: Comments: Sinus rhythm with a rate of 69 bpm with no acute ST segment changes Discharge Plan Triage Chief Complaint: Shortness of Breath ED Provider: Kaycee Jurado Dx/Rx/DC Orders Clinical Impression: Hypoxia, Acute exacerbation of chronic obstructive pulmonary disease Instructions: ED COPD Flare Prescriptions: New levofloxacin 750 mg tablet 750 mg PO DAILY Qty: 7 0RF prednisone 20 mg tablet 20 mg PO BID Qty: 10 0RF No Action budesonide-formoterol [Symbicort] 160-4.5 mcg/actuation HFA aerosol inhaler 2 puff inhalation BID Qty: 10.2 6RF clopidogrel 75 MG tablet 75 mg PO DAILY losartan 50 mg tablet 50 mg PO DAILY Patient Comments: TAKE 1 TABLET BY MOUTH DAILY latanoprost 0.005 % drops 1 drp EACH EYE QHS Patient Comments: Instill 1 drop into both eyes once a day pravastatin 40 mg tablet 40 mg PO DAILY Patient Comments: TAKE 1 TABLET BY MOUTH EVERY DAY tamsulosin 0.4 mg capsule 0.4 mg PO QHS Patient Comments: TAKE 1 CAPSULE BY MOUTH AT BEDTIME ergocalciferol (vitamin D2) 1,250 mcg (50,000 unit) capsule 1,250 mcg PO UD Patient Comments: TAKE 1 CAPSULE BY MOUTH twice a week Rx Instructions: 2x/week takes on and saturdays timolol maleate 0.5 % drops 1 drp EACH EYE BID Patient Comments: Instill 1 drop in both eyes twice a day Combivent Respimat 20-100 mcg/actuation Mist 2 puff INHALATION Q6H albuterol sulfate 90 mcg/actuation HFA aerosol inhaler 2 puff inhalation Q6H PRN (Reason: shortness of breath or wheezing) Qty: 8.5 0RF Primary Care Provider: Jessica Santiago Referrals: Killian Clark DO [Med Staff - Active Staff] - 3-5 Days Jessica Santiago DO [Primary Care Provider] - Disposition Disposition: Home, Self Care
[2023-07-29 10:48] LABS: Absolute Lymphocyte Count 1.06 X10^3/uL (0.83-4.51); Absolute Neutrophil Count 6.7 X10^3/uL (2.0-7.7); Basophil# 0.06 X10^3/uL; Basophil% 0.7 % (0-1); Eosinophil# 0.69 X10^3/uL; Eosinophils% 7.5 % (0-5); Hemoglobin 15.5 g/dL (13.0-16.5); Lymphocyte # 1.06 X10^3/ul (0.83-4.51); Lymphocyte % 11.5 % (19-41); Mean Corpuscular Hgb 30.9 pg (27.0-32.0); Mean Corpuscular Volume 93.8 fL (80-94); Mean Platelet Vol. 8.3 fl (6.2-12.0); Monocyte# 0.66 X10^3/uL; Monocyte% 7.2 % (0-10); NRBC Flagged by Analyzer 0 % (0-5); Neutrophil # 6.67 X10^3/uL (2.7-7.7); Neutrophil % 72.2 % (47-70); Platelet Count 224 K/mm3 (150-450); RBC Distribution Width CV 13.3 % (11.6-14.6); RBC Distribution Width SD 45.5 fl (35.1-43.9); Red Blood Count 5.01 M/mm3 (4.6-6.2); White Blood Count 9.2 K/mm3 (4.4-11.0)
[2023-07-29] MEDS: 0.9% Normal Saline (1000mL) 1,000 ML 150 ML IV (10:48)
[2023-07-29] MEDS: MethylPREDNISolone 125 MG/2 ML Vial IV (10:48)
[2023-07-29] MEDS: Ipratropium/Albuterol Sulfate 3 ML AMPUL.NEB INHALATION (11:00)
[2023-07-29] MEDS: Albuterol 2.5 MG/3 ML VIAL.NEB. INHALATION (11:01)
[2023-07-29 11:04] LABS: Anion Gap 2 (5-15); BUN 15 mg/dL (7-18); BUN/Creat Ratio 19.5 RATIO (10-20); Calcium,Total 9.7 mg/dL (8.5-10.1); Chloride 108 mmol/L (98-107); Creatinine, Serum 0.77 mg/dL (0.70-1.30); EST Glomerular Filtration Rate 102 mL/min (>60); Est Glom Filt Rate - Afr Amer 124 mL/min (>60); Estimated Creatinine Clearance 49.62 ml/min; Glucose 147 mg/dL (74-106); Sodium Level 139 mmol/L (136-145); Troponin-I HS 8 pg/mL (3.0-78.0)
[2023-07-29 11:24] LABS: Lactic Acid 1.5 mmol/L (0.4-1.9)
[2023-07-29] MEDS: levoFLOXacin IV 750 MG/150 ML BAG 100 MG IV (12:21)
== END 2023-07-29 16:00 | disposition home or self-care (01) ==
PROVIDERS: Emergency Provider Emergency Medicine; PCP Family Medicine; Visit Provider Emergency Medicine
DX: R09.02 Hypoxemia (principal); J44.1 Chronic obstructive pulmonary disease with (acute) exacerbation; Z86.73 Personal history of transient ischemic attack (TIA), and cerebral infarction without residual deficits; Z87.891 Personal history of nicotine dependence
CPT/HCPCS: 71045; 80048; 83605; 84484; 85025; 87040; 87428; 93005; 94640; 96365; 96366; 96375; 99284; J7030; A4216

== ENCOUNTER 2023-09-22 12:49 | Inpatient (IN) | payer MEDICARE, OTHER, SELFPAY ==
[2023-09-22] VITALS (14 sets, daily range): BP systolic 136–204; BP diastolic 71–133; PULSE 85–102; RESP 18–24; TEMP 36.4–36.6; O2SAT 88–96; BMI 34.9; BMI 32.2
--- NOTE | 2023-09-22 12:55 | EKG12_ITS ---
Test Reason : SOB Blood Pressure : / mmHG Vent. Rate : 091 BPM Atrial Rate : 091 BPM P-R Int : 202 ms QRS Dur : 062 ms QT Int : 356 ms P-R-T Axes : 086 079 087 degrees QTc Int : 437 ms Normal sinus rhythm Nonspecific ST abnormality Abnormal ECG Confirmed by JIMMY CORNEJO, JOCELYNN ([id number]), health editor BETY KIRBY ([id number]) on 09/23/2023 10:32:47 AM Referred By: Confirmed By:JOCELYNN MARQUEZ MD
--- NOTE | 2023-09-22 12:56 | ED.VIS.DYS ---
HPI History of Present Illness Chief Complaint: Shortness of Breath Informant: patient and spouse/S.O. Onset/Context/Timing Onset: Weeks Context: gradual Timing: Continuous Quality: Positive for Wheezing Current Severity: Moderate Maximum Severity: Moderate Worsened by: Exertion and Coughing Relieved by: Oxygen Associated Symptoms cough and white sputum Chest Pain: Positive for None Narrative Narrative: 83-year-old male history of COPD on inhalers at home. Not on oxygen. Denies any cardiac history. Patient presents in respiratory distress. Reportedly has had URI symptoms for 2 weeks. Cough of white sputum. No hemoptysis. No chest pain. No fever. Denies nausea, vomiting or diarrhea. No leg swelling. He just has progressively gotten worse and they wanted him evaluated today. No history of DVT or PE. PE Risk Factors: Negative for Cancer, OCP + Smoking + > 35, Prior DVT or PE, Recent immobilization, Recent surgery or Recent travel Prior similar symptoms: Yes Recent Illness/Hospitalization: No PFSH PFSH Medical History BPH (benign prostatic hyperplasia) Closed left hip fracture COPD (chronic obstructive pulmonary disease) Foot drop, left Glucose intolerance Hip fracture requiring operative repair HLD (hyperlipidemia) HTN (hypertension) Hyperlipidemia Hypertension Presbycusis Prostate enlargement Stroke Stroke Vitamin D deficiency Home Medications clopidogrel 75 mg tablet 75 mg PO DAILY blood thinner 05/23/20 [History Last Taken 10/27/20] ergocalciferol (vitamin D2) 1,250 mcg (50,000 unit) capsule 1,250 mcg PO UD Check with primary doctor 01/24/23 [History Last Taken Unknown] ipratropium 20 mcg-albuterol 100 mcg/actuation mist for inhalation (Combivent Respimat) 2 puff inhalation Q6H COPD 01/24/23 [History Last Taken Unknown] latanoprost 0.005 % eye drops 1 drp EACH EYE QHS Check with primary doctor 01/24/23 [History Last Taken Unknown] losartan 50 mg tablet 50 mg PO DAILY high blood pressure 01/24/23 [History Last Taken Unknown] pravastatin 40 mg tablet 40 mg PO DAILY 01/24/23 [History Last Taken Unknown] tamsulosin 0.4 mg capsule 0.4 mg PO QHS Check with primary doctor 01/24/23 [History Last Taken Unknown] timolol maleate 0.5 % eye drops 1 drp EACH EYE BID Check with primary doctor 01/24/23 [History Last Taken Unknown] albuterol sulfate 90 mcg/actuation aerosol inhaler 2 puff inhalation Q6H PRN shortness of breath or wheezing #8.5 grams 01/25/23 [Rx Last Taken Unknown] budesonide-formoterol HFA 160 mcg-4.5 mcg/actuation aerosol inhaler (Symbicort) 2 puff inhalation BID #10.2 grams 02/18/23 [Rx Last Taken Unknown] fluticasone propionate 50 mcg/actuation nasal spray,suspension 2 spray intranasal DAILY #16 grams 08/20/23 [Rx Last Taken Unknown] tiotropium bromide 2.5 mcg/actuation mist for inhalation (Spiriva Respimat) 2 inh inhalation QDAY #1 ea 08/20/23 [Rx Last Taken Unknown] Allergy/AdvReac Type Severity Reaction Status Date / Time Penicillins Allergy Hives Verified 09/22/23 12:55 adhesive tape AdvReac Other Verified 09/22/23 12:55 fentanyl AdvReac PT UNSURE Verified 09/22/23 12:55 OF REACTION morphine AdvReac PT UNSURE Verified 09/22/23 12:55 OF REACTION Family History Other COPD (chronic obstructive pulmonary disease) Cancer Surgical History H/O Spinal surgery History of open reduction and internal fixation (ORIF) procedure History of orthopedic surgery Total knee replacement status Social History Smoking Status: Former smoker Tobacco: How many years used: 30 alcohol intake: former ROS ROS ED ROS Narrative Wheezing. Short of breath. Cough of white sputum. Review of Systems ROS Unobtainable: Denies due to encephalopathy Constitutional Constitutional ED: Denies chills or fever(s) Eyes Eyes: Denies blurry vision ENT ENT ED: Denies ear pain Cardiovascular Cardiovascular: Denies chest pain or palpitations Respiratory/Chest Respiratory/Chest: Reports cough, dyspnea, dyspnea on exertion and sputum Gastrointestinal Gastrointestinal: Denies abdominal pain, constipation, diarrhea, melena, nausea or vomiting Genitourinary Genitourinary ED: Denies dysuria or hematuria Musculoskeletal Musculoskeletal: Denies arthralgias, back pain, myalgias or neck pain Integumentary Denies abscess or Abrasions Neurologic Neurologic: Denies headache(s) Psychiatric Psychiatric: Denies anxiety or depression Endocrine Endocrinology: Denies cold intolerance Hematologic/Lymphatic Hematologic/Lymphatic: Denies easy bleeding Allergic/Immunologic Allergic/Immunologic ED: Denies mouth swelling or tongue swelling EXAM Physical Exam Narrative Exam Narrative: 83-year-old male vital signs are stable initial blood pressure is elevated at 204/133. He has accelerated respiratory rate. He is actively wheezing. Accessory muscle use. And his pulse ox is 88 on room air. In the mid 90s on oxygen. at bedside. H EENT exam unremarkable. Moist extremities. Neck nontender no JVD. Lungs expiratory wheezing throughout. No rales or rhonchi. Equal symmetrical. Heart regular rhythm rate in 90s no murmur. Chest wall and ribs nontender. Abdomen soft nontender. Moving all 4 extremities. Normal strength. Calves are nontender without edema. He has a posterior left foot brace on. That is chronic due to a foot drop. Neurologically is awake and alert. Moving all 4 extremities. Answering questions and following commands. Const Vital Signs: 09/22/23 12:50 09/22/23 12:49 09/22/23 12:58 Temperature 97.9 F 97.6 F L Temperature Source Temporal Temporal Pulse Rate 92 92 Respiratory Rate 22 H 22 H Respiratory Effort Short of Breath Labored Accessory Muscle Use Nasal Flaring Pursed Lip Splinting Respiratory Depth Shallow Respiratory Pattern Tachypnea Blood Pressure 204/133 H 204/133 H Blood Pressure Mean 156 156 Pulse Ox 88 96 Oxygen Delivery Method Room Air Nasal Cannula Nasal Cannula Oxygen Flow Rate (L/min) 09/22/23 13:00 09/22/23 12:54 09/22/23 13:30 Temperature 97.9 F Temperature Source Temporal Pulse Rate 92 90 Respiratory Rate 24 H 18 Respiratory Effort Respiratory Depth Respiratory Pattern Blood Pressure 167/97 H 167/97 H Blood Pressure Mean 120 120 Pulse Ox 95 95 95 Oxygen Delivery Method Nasal Cannula Nasal Cannula Room Air Oxygen Flow Rate (L/min) 3 3 09/22/23 13:03 Temperature Temperature Source Pulse Rate 88 Respiratory Rate 20 H Respiratory Effort Respiratory Depth Respiratory Pattern Blood Pressure Blood Pressure Mean Pulse Ox Oxygen Delivery Method Oxygen Flow Rate (L/min) Positive well nourished and well developed; Negative for obese, cachectic, contractures or unkempt General Appearance ED: well developed; Negative for unkempt, cachectic, contractures, NAD or pallor Nutritional Appearance: Negative for cachectic or obese HEENT Reports moist mucous membranes; Denies dry mucous membranes atraumatic; Negative for trauma or tenderness Mouth ED: No dry mucous membranes Mouth: No dry mucous membranes Eyes PERRL and EOMs intact bilaterally General Eye ED: Negative for pale conjunctiva, scleral icterus or other Neck no lymphadenopathy, supple, no meningeal signs and no JVD General: Negative for tenderness Lymph Lymphatic: Negative for other Chest Wall Chest: Negative for other Resp No normal respiratory effort and No clear to auscultation bilaterally Resp Narrative: Increased respiratory effort. Bilateral wheezing. Auscultation: wheezes; Negative for rales or rhonchi Cardio regular rate, regular rhythm, S1 normal heart sound, S2 normal heart sound and no murmurs Rate: Negative for bradycardia or tachycardic Rhythm: Negative for abnormal rhythm GI non-tender, non-distended and no masses Inspection: Negative for other Auscultation: normoactive bowel sounds Palpation: soft; Negative for tender or guarding Back/Spine no CVA tenderness and normal to inspection General Back: Negative for CVA tenderness or tenderness Extremity normal to inspection General Extremety ED: Negative for edema or tenderness General Extremity: Negative for edema Neuro oriented x3 and CN's II-XII intact bilaterally Sensorium / Orientation: alert, oriented to person, oriented to place and oriented to time; Negative for orientation impaired, confused, lethargic or stuporous Motor Exam: strength 5/5 throughout Psych mental status grossly normal Appearance: Negative for unkempt Attitude: No agitated Mood & Affect: Negative for depressed Thought Process: normal thought process Skin no wounds General Skin Exam: Negative for jaundice or pallor Lesions: no lesions Rashes: no rashes Trauma: Negative for abrasion or laceration MDM MDM MDM Narrative Medical decision making narrative: 83-year-old male history of COPD with wheezing. COPD flare possible pneumonia versus other respiratory infection. Rule out cardiac etiology. No history or risk factors of DVT or PE. Treated with DuoNeb and albuterol aerosols. IV Solu-Medrol. Screening labs will be obtained. Along with a VBG and COVID test. Repeat exam at 1:20 PM patient looks a lot better. He is breathing much more easily. He is still wheezing. Currently off oxygen his pulse ox is 94%. We discussed the test results that have returned but there is multiple that our not ready yet. Post aerosol treatments and Solu-Medrol patient was still wheezing. He was stood and walked he did the saturate but he got short of breath and is wheezing worse as that is heart rate accelerate. He and his are comfortable with admission. I have already spoken to the hospitalist about admission. History & Record Review Discussion w/independent historian: Patient Additional record(s) reviewed:: Prior inpatient record, Prior outpatient record, Prior ED visit and Prior labs Lab Data Attestation: I reviewed the patient's lab results. Lab results narrative: CBC shows a white count 11.4. H&H is 16 and 49. Platelets 249. Chemistries show a gap of 3 normal BUN of 15 creatinine 0.7 Glucose 137. Lactic acid is normal at 1.1. Troponin is normal at 9. COVID and flu test both negative. Labs: Laboratory Results - last 24 hr 09/22/23 12:55 WBC 11.4 H RBC 5.19 Hgb 16.2 Hct 49.5 MCV 95.4 H MCH 31.2 MCHC 32.7 RDW Std Deviation 46.5 H RDW Coeff of Flora 13.2 Plt Count 249 MPV 8.9 Immature Gran % (Auto) 0.600 Neut % (Auto) 70.3 H Lymph % (Auto) 16.1 L [place] % (Auto) 6.6 Eos % (Auto) 5.7 H Baso % (Auto) 0.7 Absolute Neuts (auto) 8.0 H Absolute Lymphs (auto) 1.83 Nucleated RBC % 0 Sodium 139 Potassium 3.9 Chloride 108 H Carbon Dioxide 28.0 Anion Gap 3 L BUN 15 Creatinine 0.77 Estim Creat Clear Calc 47.83 Est GFR (MDRD) Af Amer 124 Est GFR (MDRD) Non-Af 103 BUN/Creatinine Ratio 19.6 Glucose 137 H Lactic Acid 1.1 Calcium 10.8 H Troponin I High Sens 9 ABG Data ABG results: ABG 09/22/23 13:11 Specimen Type VALERIY Sample Site Not entered VBG pH 7.51 H VBG pO2 47 H VBG HCO3 26 VBG Total CO2 27 VBG O2 Sat (Calc) 87 H VBG Base Excess 3 POC Mix VBG pCO2 Pt Tmp 32.5 L O2 Delivery Device Not entered Radiography Chest X-Ray - ED: 1 View, Read by ED Physician, Heart, Lungs, Mediastinum, Bony Structures, No Acute Disease and Chronic Changes Diagnostic Testing: Clinical Impression(s) from Imaging Studies Chest X-Ray 09/22/23 13:14 IMPRESSION: I suspect a focal infiltrate superimposed on a mild degree of bibasilar scarring. Electronically Signed: Winston Santos MD at 13:29 EST , Chest x-ray, portable, single view, interpreted by myself shows Possible right lower lobe infiltrate versus overlapping shadows. Normal cardiac silhouette. Chronic changes. No pneumothorax. No effusions. Rhythm Strip Rhythm Strip: Sinus Rhythm Rate: 91 Ectopy: None EKG Initial EKG: Attestation: I personally reviewed and interpreted this EKG as follows: Interpretation: Sinus Rhythm and No Acute Injury Pattern Comments: Normal sinus rhythm. Rate of 91. No acute signs of [place] or ischemia. Discharge Plan Triage Chief Complaint: Shortness of Breath ED Provider: Jeff Mckay Dx/Rx/DC Orders Clinical Impression: Hypoxia, COPD (chronic obstructive pulmonary disease) Prescriptions: No Action budesonide-formoterol [Symbicort] 160-4.5 mcg/actuation HFA aerosol inhaler 2 puff inhalation BID Qty: 10.2 6RF fluticasone propionate 50 mcg/actuation spray,suspension 2 spray intranasal DAILY Qty: 16 3RF Spiriva Respimat 2.5 mcg/actuation mist 2 inh inhalation QDAY Qty: 1 6RF Rx Instructions: administer at approximately the same time(s) each day clopidogrel 75 MG tablet 75 mg PO DAILY losartan 50 mg tablet 50 mg PO DAILY Patient Comments: TAKE 1 TABLET BY MOUTH DAILY latanoprost 0.005 % drops 1 drp EACH EYE QHS Patient Comments: Instill 1 drop into both eyes once a day pravastatin 40 mg tablet 40 mg PO DAILY Patient Comments: TAKE 1 TABLET BY MOUTH EVERY DAY tamsulosin 0.4 mg capsule 0.4 mg PO QHS Patient Comments: TAKE 1 CAPSULE BY MOUTH AT BEDTIME ergocalciferol (vitamin D2) 1,250 mcg (50,000 unit) capsule 1,250 mcg PO UD Patient Comments: TAKE 1 CAPSULE BY MOUTH twice a week Rx Instructions: 2x/week takes on and saturdays timolol maleate 0.5 % drops 1 drp EACH EYE BID Patient Comments: Instill 1 drop in both eyes twice a day Combivent Respimat 20-100 mcg/actuation Mist 2 puff INHALATION Q6H albuterol sulfate 90 mcg/actuation HFA aerosol inhaler 2 puff inhalation Q6H PRN (Reason: shortness of breath or wheezing) Qty: 8.5 0RF Primary Care Provider: Jessica Santiago Referrals: Jessica Santiago DO [Primary Care Provider] - Disposition Disposition: Acute Care Hospital [facility]
[2023-09-22] MEDS: Ipratropium/Albuterol Sulfate 3 ML AMPUL.NEB INHALATION ×3 (13:03→23:25)
[2023-09-22] MEDS: Albuterol 2.5 MG/3 ML VIAL.NEB. INHALATION ×2 (13:03)
[2023-09-22] MEDS: MethylPREDNISolone 125 MG/2 ML Vial IV (13:04)
[2023-09-22 13:12] LABS: Absolute Lymphocyte Count 1.83 X10^3/uL (0.83-4.51); Basophil# 0.08 X10^3/uL; Basophil% 0.7 % (0-1); Eosinophil# 0.65 X10^3/uL; Eosinophils% 5.7 % (0-5); Hematocrit 49.5 % (40-54); Hemoglobin 16.2 g/dL (13.0-16.5); Lymphocyte # 1.83 X10^3/ul (0.83-4.51); Lymphocyte % 16.1 % (19-41); Mean Corp Hgb Conc 32.7 g/dL (32-36); Mean Corpuscular Hgb 31.2 pg (27.0-32.0); Mean Corpuscular Volume 95.4 fL (80-94); Mean Platelet Vol. 8.9 fl (6.2-12.0); Monocyte# 0.75 X10^3/uL; Monocyte% 6.6 % (0-10); NRBC Flagged by Analyzer 0 % (0-5); Neutrophil # 7.97 X10^3/uL (2.7-7.7); Neutrophil % 70.3 % (47-70); Platelet Count 249 K/mm3 (150-450); RBC Distribution Width CV 13.2 % (11.6-14.6); RBC Distribution Width SD 46.5 fl (35.1-43.9); Red Blood Count 5.19 M/mm3 (4.6-6.2); White Blood Count 11.4 K/mm3 (4.4-11.0)
[2023-09-22 13:14] LABS: Blood Gas Specimen Type VEN; O2 Delivery Device Not entered; SITE Not entered; VBG BASE EXCESS 3 mmol/L (-1.0-3.5); VBG Bicarbonate 26 mmol/L (22-26); VBG PO2 47 mmHg (25-40); VBG SO2 87 % (50-70); VBG TCO2 27 mmol/L (23-33); VBG pCO2 32.5 mmHg (41-51); VBG pH 7.51 (7.32-7.42)
--- NOTE | 2023-09-22 13:14 | RAD_ITS ---
STUDY: X-RAY CHEST REASON FOR EXAM: Male, 83 years old. Chest pain. COPD. Increasing shortness of breath. TECHNIQUE: Single AP portable view of the chest. COMPARISON: Comparison is made with prior study July 29, 2023. FINDINGS: EKG electrodes are seen. Focal infiltrate is seen at the right lung base superimposed on bibasilar scarring. There is no demonstrated pleural abnormality. Normal size heart. Normal mediastinum and jaime. Normal visualized pulmonary arteries. There is atherosclerotic calcification of the aortic arch with tortuosity. There are diffuse degenerative changes of the visualized thoracic spine. Degenerative changes of the right shoulder joint. Abdominal hernia. RAD/Chest 1 View (Portable) IMPRESSION: I suspect a focal infiltrate superimposed on a mild degree of bibasilar scarring. Electronically Signed: Winston Santos MD at 13:29 EST ,
[2023-09-22 13:28] LABS: Anion Gap 3 (5-15); BUN 15 mg/dL (7-18); BUN/Creat Ratio 19.6 RATIO (10-20); Calcium,Total 10.8 mg/dL (8.5-10.1); Chloride 108 mmol/L (98-107); Creatinine, Serum 0.77 mg/dL (0.70-1.30); EST Glomerular Filtration Rate 103 mL/min (>60); Est Glom Filt Rate - Afr Amer 124 mL/min (>60); Estimated Creatinine Clearance 47.83 ml/min; Glucose 137 mg/dL (74-106); Potassium 3.9 mmol/L (3.5-5.1); Sodium Level 139 mmol/L (136-145); Troponin-I HS 9 pg/mL (3.0-78.0)
[2023-09-22 13:30] LABS: Lactic Acid 1.1 mmol/L (0.4-1.9)
--- NOTE | 2023-09-22 14:59 | PCM.HP.STD ---
HPI - General General Date of Admission: 09/22/23 Date of Service: 09/22/23 Chief Complaint: Shortness of breath HPI Narrative DEANDRE NEWTON, is a 83 M who presented to the emergency department at [facility] on 09/22/2023 with worsening shortness of breath. Patient states his symptoms started about 2 days ago. He states he thought he had some chills initially but no other significant symptoms. He has chronic nasal drainage which has not changed. He states he has chronic cough with intermittent sputum production that is white that is at his current baseline as well. He states that he has increased fatigue over the last couple days in conjunction with the shortness of breath and a shortness of breath is significantly worse with exertion. He has had no sick contacts and had his flu vaccine. He denies any fevers, headache, nasal congestion, pharyngitis, or myalgias. Vital signs on presentation showed temperature of 97.9 with a blood pressure initially at 204/133 but recheck was 167/97, respiratory rate has been anywhere from 18-24 and oxygen saturation on arrival was 88% on room air. He was placed on supplemental oxygen at 3 L and treated with steroids and multiple aerosols. Despite treatment he remained short of breath. His oxygen saturations did improve at rest to 92% on room air but patient becomes hypoxic with exertion. CBC shows a mild leukocytosis with a white count of 11.4 and a minimal left shift at 70.3% neutrophilia. He also has chronic eosinophilia. VBG was done and shows no sign of hypercapnia. His chemistry panel is unremarkable other than a mild the elevated calcium at 10.8. This is a new finding. Troponin was normal. Lactic acid was 1.1. Chest x-ray shows possible infiltrate versus atelectasis versus scarring. EKG was sinus rhythm with a rate of 91 and no ectopy with no ST-T wave changes concerning for acute ischemia and normal intervals. [facility] Medical History BPH (benign prostatic hyperplasia) Closed left hip fracture COPD (chronic obstructive pulmonary disease) Foot drop, left Glucose intolerance Hip fracture requiring operative repair HLD (hyperlipidemia) HTN (hypertension) Hyperlipidemia Hypertension Presbycusis Prostate enlargement Stroke Stroke Vitamin D deficiency Home Medications clopidogrel 75 mg tablet 75 mg PO DAILY blood thinner 08/18/20 [History Last Taken 10/27/20] ergocalciferol (vitamin D2) 1,250 mcg (50,000 unit) capsule 1,250 mcg PO UD Check with primary doctor 01/24/23 [History Last Taken Unknown] ipratropium 20 mcg-albuterol 100 mcg/actuation mist for inhalation (Combivent Respimat) 2 puff inhalation Q6H COPD 01/24/23 [History Last Taken Unknown] latanoprost 0.005 % eye drops 1 drp EACH EYE QHS Check with primary doctor 01/24/23 [History Last Taken Unknown] losartan 50 mg tablet 50 mg PO DAILY high blood pressure 01/24/23 [History Last Taken Unknown] pravastatin 40 mg tablet 40 mg PO DAILY 01/24/23 [History Last Taken Unknown] tamsulosin 0.4 mg capsule 0.4 mg PO QHS Check with primary doctor 01/24/23 [History Last Taken Unknown] albuterol sulfate 90 mcg/actuation aerosol inhaler 2 puff inhalation Q6H PRN shortness of breath or wheezing #8.5 grams 01/25/23 [Rx Last Taken Unknown] budesonide-formoterol HFA 160 mcg-4.5 mcg/actuation aerosol inhaler (Symbicort) 2 puff inhalation BID #10.2 grams 02/18/23 [Rx Last Taken Unknown] fluticasone propionate 50 mcg/actuation nasal spray,suspension 2 spray intranasal DAILY #16 grams 08/20/23 [Rx Last Taken Unknown] tiotropium bromide 2.5 mcg/actuation mist for inhalation (Spiriva Respimat) 2 inh inhalation QDAY #1 ea 08/20/23 [Rx Last Taken Unknown] Allergy/AdvReac Type Severity Reaction Status Date / Time Penicillins Allergy Hives Verified 09/22/23 12:55 adhesive tape AdvReac Other Verified 09/22/23 12:55 fentanyl AdvReac PT UNSURE Verified 09/22/23 12:55 OF REACTION morphine AdvReac PT UNSURE Verified 09/22/23 12:55 OF REACTION Family History Other COPD (chronic obstructive pulmonary disease) Cancer Surgical History H/O Spinal surgery History of open reduction and internal fixation (ORIF) procedure History of orthopedic surgery Total knee replacement status Social History (Updated 09/22/23 @ 15:[address] Treva Sheridan, DO) household members: spouse housing: house Smoking Status: Former smoker Tobacco: How many years used: 30 alcohol intake: former substance use type: does not use ROS Constitutional Constitutional: Reports chills and fatigue; Denies anorexia, change in weight, fever(s), malaise, night sweats, weakness or other Eyes Eyes: Denies blurry vision, change in eye color, change in vision, discharge from eye(s), double vision, erythema, eye pain, loss of vision or other ENT HEENT: Reports abnormal hearing and hearing loss; Denies dysphagia, ear pain, epistaxis, headache(s), nasal congestion, nasal discharge, post nasal drip, sinus pressure, sore throat or other Cardiovascular Cardiovascular: Reports dyspnea on exertion; Denies chest pain, claudication, edema, lightheadedness, orthopnea, palpitations, paroxysmal nocturnal dyspnea, rapid heart rate, syncope or other Respiratory/Chest Respiratory/Chest: Reports cough, dyspnea, shortness of breath at rest, shortness of breath with exertion and wheezing; Denies excessive phlegm production, hemoptysis, productive cough or other Gastrointestinal Gastrointestinal: Denies abdominal pain, coffee ground emesis, constipation, diarrhea, dyspepsia, hematemesis, hematochezia, loose stools, melena, nausea, vomiting or other Genitourinary Genitourinary: Denies burning urination, difficulty urinating, dysuria, hematuria, nocturia, urinary frequency, urinary hesitancy, urinary incontinence, urinary urgency or other Musculoskeletal Musculoskeletal: Denies arthralgias, back pain, joint pain, joint stiffness, joint swelling, myalgias, neck pain or other Neurologic Neurologic: Denies abnormal gait, abnormal speech, confusion, disequilibrium, dizziness, focal weakness, headache(s), numbness, paresthesias, seizure-like activity, seizures, syncope, tingling, tremor(s) or other Psychiatric Psychiatric: Denies anxiety, depression, homicidal ideation, suicidal ideation or other Endocrine Endocrinology: Denies change in body appearance, cold intolerance, excessive sweating, heat intolerance, polydipsia, polyuria or other Hematologic/Lymphatic Hematologic/Lymphatic: Denies anemia, easy bleeding, easy bruising, lymphadenopathy or other Allergic/Immunologic Allergic/Immunologic: Reports asthma; Denies rhinitis, hives, eczemia or other Vital Signs Vital Signs Vital Signs: 09/22/23 12:50 09/22/23 12:49 09/22/23 12:58 Temperature 97.9 F 97.6 F L Temperature Source Temporal Temporal Pulse Rate 92 92 Respiratory Rate 22 H 22 H Respiratory Effort Short of Breath Labored Accessory Muscle Use Nasal Flaring Pursed Lip Splinting Respiratory Depth Shallow Respiratory Pattern Tachypnea Blood Pressure 204/133 H 204/133 H Blood Pressure Mean 156 156 Pulse Ox 88 96 Oxygen Delivery Method Room Air Nasal Cannula Nasal Cannula Oxygen Flow Rate (L/min) 09/22/23 13:00 09/22/23 12:54 09/22/23 13:30 Temperature 97.9 F Temperature Source Temporal Pulse Rate 92 90 Respiratory Rate 24 H 18 Respiratory Effort Respiratory Depth Respiratory Pattern Blood Pressure 167/97 H 167/97 H Blood Pressure Mean 120 120 Pulse Ox 95 95 95 Oxygen Delivery Method Nasal Cannula Nasal Cannula Room Air Oxygen Flow Rate (L/min) 3 3 09/22/23 13:03 Temperature Temperature Source Pulse Rate 88 Respiratory Rate 20 H Respiratory Effort Respiratory Depth Respiratory Pattern Blood Pressure Blood Pressure Mean Pulse Ox Oxygen Delivery Method Oxygen Flow Rate (L/min) Weight Weight: 95.39 kg Body Mass Index (BMI) 34.9 Physical Exam Const alert, oriented x3, healthy appearing and well nourished; Negative for no apparent distress or average body habitus Constitutional Narrative: Elderly, white male, lying in bed, appears comfortable nontoxic, mild conversational dyspnea however sats remained stable on room air between 89 and 92% at the time of my exam General Appearance: cooperative HEENT normocephalic, head/scalp atraumatic and moist oral mucous membranes; Negative for hearing grossly normal bilaterally HEENT Narrative: Dentition is poor, Mallampati is 3, marked hearing loss Eyes PERRL, EOMs intact bilaterally and conjunctivae normal Eyes Narrative: No scleral icterus Neck supple and no JVD Neck Narrative: Trachea midline, mild submandibular lymphadenopathy present bilaterally, no thyroid enlargement or nodules noted Resp No no retractions, No no use of accessory muscles and No clear to auscultation bilaterally Resp Narrative: Diffuse end expiratory wheeze, mild tachypnea/conversational dyspnea Auscultation: wheezes; Negative for rales or rhonchi Cardio regular rate, regular rhythm, S1 normal heart sound, S2 normal heart sound, no murmurs, no rub, no gallops and no clicks GI normal to inspection, nondistended, normoactive bowel sounds, soft to palpation and non-tender Extremity no clubbing, cyanosis or edema Extremity Narrative: Pedal pulses are 2+, left lower extremity with AFO in place Neuro oriented x3, moves all extremities and no focal motor deficits Speech: speech normal Psych affect normal Psych Narrative: Eye contact is good, patient is pleasant, interacts appropriately Results Lab / Micro Data 09/22/23 12:55 09/22/23 12:55 Labs: Laboratory Results - last 24 hr 09/22/23 12:55: WBC 11.4 H, RBC 5.19, Hgb 16.2, Hct 49.5, MCV 95.4 H, MCH 31.2, MCHC 32.7, RDW Std Deviation 46.5 H, RDW Coeff of Flora 13.2, Plt Count 249, MPV 8.9, Immature Gran % (Auto) 0.600, Neut % (Auto) 70.3 H, Lymph % (Auto) 16.1 L, Person % (Auto) 6.6, Eos % (Auto) 5.7 H, Baso % (Auto) 0.7, Absolute Neuts (auto) 8.0 H, Absolute Lymphs (auto) 1.83, Nucleated RBC % 0, Sodium 139, Potassium 3.9, Chloride 108 H, Carbon Dioxide 28.0, Anion Gap 3 L, BUN 15, Creatinine 0.77, Estim Creat Clear Calc 47.83, Est GFR (MDRD) Af Amer 124, Est GFR (MDRD) Non-Af 103, BUN/Creatinine Ratio 19.6, Glucose 137 H, Lactic Acid 1.1, Calcium 10.8 H, Troponin I High Sens 9 Micro: Microbiology 09/22/23 13:05 Nasal Secretion SARS-CoV-2 & FLU Antigen (Rapid) - Final ABG Data ABG results: ABG 09/22/23 13:11 Specimen Type VALERIY Sample Site Not entered VBG pH 7.51 H VBG pO2 47 H VBG HCO3 26 VBG Total CO2 27 VBG O2 Sat (Calc) 87 H VBG Base Excess 3 POC Mix VBG pCO2 Pt Tmp 32.5 L O2 Delivery Device Not entered Rhythm Strip Rhythm Strip: Sinus Rhythm Rate: 91 Ectopy: None Imagaing Radiology Impression Chest X-Ray 09/22/23 13:14 IMPRESSION: I suspect a focal infiltrate superimposed on a mild degree of bibasilar scarring. Electronically Signed: Winston Santos MD at 13:29 EST , Assessment & Plan Assessment/Plan (1) Hypoxia: (2) Acute exacerbation of COPD with asthma: (3) Hypercalcemia: (4) Leukocytosis: PLAN: Plan Hypoxia secondary to acute exacerbation of COPD/overlap syndrome -Highly doubt pneumonia based on clinical exam and clinical information so we will hold off on antibiotics for now and monitor clinically -Check strep pneumo and Legionella antigens -Check respiratory viral panel -COVID and flu rapid are negative -Start Solu-Medrol 40 every 8 -Aggressive pulmonary toilet with scheduled and as needed DuoNebs -Incentive spirometry and Pep therapy -Mucinex 1200 p.o. twice daily -Check sputum culture if able to produce -Will need ambulatory pulse ox prior to discharge Hypercalcemia -This does not appear to be chronic and a new finding on his lab -Will not pursue any further workup at this time and repeat lab tomorrow -If remains elevated would recommend checking vitamin D levels and intact PTH Leukocytosis -A very mild at 11.4 with a minimal left shift -No symptoms that clearly suggest pneumonia -Hold off on antibiotics -Repeat CBC in a.m. COPD with overlap syndrome -Follows with pulmonary medicine -History of elevated IgE levels -Had ambulatory pulse ox done in 2022 but showed an ambulatory desaturation to 89% but did not qualify for oxygen -PFTs from this year showed an FEV1 61% predicted -Treatment as above -Restart home inhalers at discharge--> on triple therapy at baseline started 08/22/2023. History of stroke -Continue risk factor modification -Continue home Plavix History of L1 compression fractures -Remote -No current issue Hypertension/hyperlipidemia -Continue home statin -Continue home losartan BPH with obstruction -Continue home Flomax History of vitamin D deficiency -Restart supplementation at discharge Left foot drop -Patient has AFO that he wears at baseline -PT/OT to evaluate with acute illness Glaucoma -Continue home eyedrops DVT prophylaxis -Subcu Lovenox 40 daily CODE STATUS -Full code per discussion prior to admission Charges/Coding Visit Charges Inpatient E&M: 28960 Init Hosp L2
[2023-09-22] MEDS: Pravastatin 40 MG Tablet PO (21:33)
[2023-09-22] MEDS: Tamsulosin HCl 0.4 MG Capsule PO (21:33)
[2023-09-22] MEDS: guaiFENesin 1,200 MG Tablet 1200 MG PO (21:33)
[2023-09-22] MEDS: Latanoprost 0.005% 1 Bottle 1 DRP EACH EYE (21:34)
[2023-09-23] VITALS (12 sets, daily range): BP systolic 122–144; BP diastolic 71–78; PULSE 65–94; RESP 18–20; TEMP 36.4–36.6; O2SAT 90–95
[2023-09-23] MEDS: Ipratropium/Albuterol Sulfate 3 ML AMPUL.NEB INHALATION ×4 (02:58→15:20)
[2023-09-23 06:42] LABS: Absolute Lymphocyte Count 0.98 X10^3/uL (0.83-4.51); Absolute Neutrophil Count 13.5 X10^3/uL (2.0-7.7); Basophil# 0.02 X10^3/uL; Basophil% 0.1 % (0-1); Hematocrit 44.5 % (40-54); Lymphocyte # 0.98 X10^3/ul (0.83-4.51); Lymphocyte % 6.6 % (19-41); Mean Corp Hgb Conc 33.7 g/dL (32-36); Mean Corpuscular Hgb 31.7 pg (27.0-32.0); Mean Corpuscular Volume 94.1 fL (80-94); Mean Platelet Vol. 8.6 fl (6.2-12.0); Monocyte# 0.28 X10^3/uL; Monocyte% 1.9 % (0-10); NRBC Flagged by Analyzer 0 % (0-5); Neutrophil # 13.48 X10^3/uL (2.7-7.7); Neutrophil % 90.9 % (47-70); Platelet Count 252 K/mm3 (150-450); RBC Distribution Width CV 13.2 % (11.6-14.6); Red Blood Count 4.73 M/mm3 (4.6-6.2); White Blood Count 14.8 K/mm3 (4.4-11.0)
[2023-09-23 06:58] LABS: Phosphorus 2.4 mg/dL (2.5-4.9)
[2023-09-23 07:00] LABS: AST(SGOT) 16 U/L (15-37); Alanine Aminotransfer ALT/SGPT 28 U/L (16-61); Albumin, Serum 3.5 g/dL (3.2-5.0); Alkaline Phosphatase 78 U/L (45-117); Anion Gap 7 (5-15); BUN 17 mg/dL (7-18); BUN/Creat Ratio 21.1 RATIO (10-20); Calcium,Total 10.2 mg/dL (8.5-10.1); Chloride 106 mmol/L (98-107); Creatinine, Serum 0.81 mg/dL (0.70-1.30); EST Glomerular Filtration Rate 97 mL/min (>60); Est Glom Filt Rate - Afr Amer 117 mL/min (>60); Estimated Creatinine Clearance 63.47 ml/min; Globulin 3.4 g/dL (2.2-4.2); Glucose 223 mg/dL (74-106); Magnesium 2.2 mg/dL (1.6-2.6); Potassium 3.6 mmol/L (3.5-5.1); Protein, Total 6.9 g/dL (6.4-8.2); Sodium Level 137 mmol/L (136-145)
[2023-09-23] MEDS: guaiFENesin 1,200 MG Tablet 1200 MG PO (09:18)
[2023-09-23] MEDS: Losartan Potassium 50 MG Tablet PO (09:18)
[2023-09-23] MEDS: Clopidogrel Bisulfate 75 MG Tablet PO (09:18)
[2023-09-23] MEDS: Enoxaparin 40 MG/0.4 ML Syringe SC (09:18)
[2023-09-23] MEDS: Fluticasone 0.05% 1 SPRAY NASAL.SRY 2 SPRAY NASAL (09:18)
--- NOTE | 2023-09-23 10:40 | CASEMGMT ---
JO ANN CONNER Discharge Planning Assessment Face to Face with patient for initial transition planning/care coordination assessment. JO ANN CONNER introduced self and role at [facility], pt voices understanding. Pt resting comfortably in bed and is agreeable to answering questions at this time. Pt is A&Ox3 and is calm. Care providers, pharmacy, and demographics verified. Admitting dx: COPD LACE Strata:3 PCP: Jack Specialists: Eduardo ([employer]) Preferred Pharmacy: [facility] ([place]) Insurance: MCR A B, [employer] Prescription Benefit: Yes LNOK: Prema Mortensen () Living Arrangements: Pt reports living in a two story home with 2 steps to enter with his . Pt reports hand rails help enter the home. Pt states the bathroom and his bedroom are on the main level. Pt states he is able to perform IADLs such as cooking, some housekeeping, med management. Pt reports capability to perform ADL unless he becomes SOB due to his COPD. Pt reports laundry is in the basement and he is able to perform this with the use of the hand rails. Transportation:Pt drives DME: Denies use of cane. States using a walker to help him shower as well as a shower chair. Pt states that he utilizes a pulse ox and BP machine. Denies CPAP/BiPAP use. Reports history of O2 use but not currently. HHC/SNF: Denies history Pt?s goal/plan: Pt reports his goal is to discharge home today. Pt denies other needs regarding discharge at time of assessment. Plan: Discharge home with hilton Dumont JO ANN CONNER
[2023-09-23] MEDS: 0.9% Saline Lock 10 ML Syringe IV (14:13)
--- NOTE | 2023-09-23 14:51 | DCINST_ITS ---
Discharge Instructions Diet Discharge Diet: Low fat / Low cholesterol Activity Discharge Activity: Return to Normal Activity Dressing / Incision Call your doctor if you observe: Fever of 101 or Higher, Shortness of breath, Dizziness, Fainting spells, Swelling in the ankles, Chest pain and Increased palpitations (irregular heartbeat) Follow Up Care Test Results: Test results from this visit will be discussed in further detail at your follow- up appointment, if applicable. Discharge Plan Admission Admit Date/Time: 09/22/23 14:52 Attending Provider: Vadim Blue Primary Care Provider: Jessica Santiago Consulting Providers: Treva Sheridan Instructions Additional Instructions / Restrictions: During your steroid taper if you do suddenly develop worsening shortness of breath I would follow-up with your PCP for possible antibiotic prescription if indicated. Discharge Orders/Prescriptions Prescriptions: New prednisone 10 mg tablet 10 mg PO DAILY Qty: 32 0RF Rx Instructions: 4 tablets daily for 3 days then 3 tablets daily for 3 days then 2 tablets daily for 3 days then 1 tablet daily for 3 days then half tablet daily for 4 days Continued budesonide-formoterol [Symbicort] 160-4.5 mcg/actuation HFA aerosol inhaler 2 puff inhalation BID Qty: 10.2 6RF fluticasone propionate 50 mcg/actuation spray,suspension 2 spray intranasal DAILY Qty: 16 3RF Spiriva Respimat 2.5 mcg/actuation mist 2 inh inhalation QDAY Qty: 1 6RF Rx Instructions: administer at approximately the same time(s) each day clopidogrel 75 MG tablet 75 mg PO DAILY losartan 50 mg tablet 50 mg PO DAILY Patient Comments: TAKE 1 TABLET BY MOUTH DAILY latanoprost 0.005 % drops 1 drp EACH EYE QHS Patient Comments: Instill 1 drop into both eyes once a day pravastatin 40 mg tablet 40 mg PO DAILY Patient Comments: TAKE 1 TABLET BY MOUTH EVERY DAY tamsulosin 0.4 mg capsule 0.4 mg PO QHS Patient Comments: TAKE 1 CAPSULE BY MOUTH AT BEDTIME ergocalciferol (vitamin D2) 1,250 mcg (50,000 unit) capsule 1,250 mcg PO UD Patient Comments: TAKE 1 CAPSULE BY MOUTH twice a week Rx Instructions: 2x/week takes on and saturdays Combivent Respimat 20-100 mcg/actuation Mist 2 puff INHALATION Q6H Patient Comments: 25 mcg/100 mcg in medicatio bag albuterol sulfate 90 mcg/actuation HFA aerosol inhaler 2 puff inhalation Q6H PRN (Reason: shortness of breath or wheezing) Qty: 8.5 0RF Referrals / Follow Up: Jessica Santiago DO [Primary Care Provider] - Within 1 Week Disposition Disposition (needs filled in before D/C Order can be placed): Home, Self Care
--- NOTE | 2023-09-23 15:04 | PCM.DC.SUM ---
Providers Date of Admission: 09/22/23 Primary Care Physician: Dr. Jessica Santiago DO Reason For Visit: ACUTE EXCERBATION COPD Diagnosis Discharge Diagnosis (1) Hypoxia: Status: Chronic Code(s): R09.02 - Hypoxemia (2) Acute exacerbation of COPD with asthma: Status: Chronic Code(s): J44.1 - Chronic obstructive pulmonary disease with (acute) exacerbation; J45.901 - Unspecified asthma with (acute) exacerbation (3) Hypercalcemia: Status: Acute Code(s): E83.52 - Hypercalcemia (4) Leukocytosis: Status: Acute Code(s): D72.829 - Elevated white blood cell count, unspecified Medications at Discharge Home Medications clopidogrel 75 mg tablet 75 mg PO DAILY blood thinner 05/23/20 ergocalciferol (vitamin D2) 1,250 mcg (50,000 unit) capsule 1,250 mcg PO UD Check with primary doctor 01/24/23 ipratropium 20 mcg-albuterol 100 mcg/actuation mist for inhalation (Combivent Respimat) 2 puff inhalation Q6H COPD 01/24/23 latanoprost 0.005 % eye drops 1 drp EACH EYE QHS Check with primary doctor 01/24/23 losartan 50 mg tablet 50 mg PO DAILY high blood pressure 01/24/23 pravastatin 40 mg tablet 40 mg PO DAILY 01/24/23 tamsulosin 0.4 mg capsule 0.4 mg PO QHS Check with primary doctor 01/24/23 albuterol sulfate 90 mcg/actuation aerosol inhaler 2 puff inhalation Q6H PRN shortness of breath or wheezing #8.5 grams 01/25/23 budesonide-formoterol HFA 160 mcg-4.5 mcg/actuation aerosol inhaler (Symbicort) 2 puff inhalation BID #10.2 grams 02/18/23 fluticasone propionate 50 mcg/actuation nasal spray,suspension 2 spray intranasal DAILY #16 grams 08/20/23 tiotropium bromide 2.5 mcg/actuation mist for inhalation (Spiriva Respimat) 2 inh inhalation QDAY #1 ea 08/20/23 prednisone 10 mg tablet 10 mg PO DAILY #32 tabs 09/23/23 Hospital Course Operations None Procedures None Summary of Care Provided Minutes Spent on Discharge: 35 Hospital Course: Per HPI: DEANDRE LAMAR, is a 83 M who presented to the emergency department at [facility] on 09/22/2023 with worsening shortness of breath. Patient states his symptoms started about 2 days ago. He states he thought he had some chills initially but no other significant symptoms. He has chronic nasal drainage which has not changed. He states he has chronic cough with intermittent sputum production that is white that is at his current baseline as well. He states that he has increased fatigue over the last couple days in conjunction with the shortness of breath and a shortness of breath is significantly worse with exertion. He has had no sick contacts and had his flu vaccine. He denies any fevers, headache, nasal congestion, pharyngitis, or myalgias. Vital signs on presentation showed temperature of 97.9 with a blood pressure initially at 204/133 but recheck was 167/97, respiratory rate has been anywhere from 18-24 and oxygen saturation on arrival was 88% on room air. He was placed on supplemental oxygen at 3 L and treated with steroids and multiple aerosols. Despite treatment he remained short of breath. His oxygen saturations did improve at rest to 92% on room air but patient becomes hypoxic with exertion. CBC shows a mild leukocytosis with a white count of 11.4 and a minimal left shift at 70.3% neutrophilia. He also has chronic eosinophilia. VBG was done and shows no sign of hypercapnia. His chemistry panel is unremarkable other than a mild the elevated calcium at 10.8. This is a new finding. Troponin was normal. Lactic acid was 1.1. Chest x-ray shows possible infiltrate versus atelectasis versus scarring. EKG was sinus rhythm with a rate of 91 and no ectopy with no ST-T wave changes concerning for acute ischemia and normal intervals. Hospital Course: 1. Hypoxia secondary to acute COPD exacerbation/asthma overlap syndrome?83-year-old male presenting to the hospital with acute hypoxia. 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 On the admission exam there is significant wheezing that seems to have significantly improved today with respiratory treatments as well as steroids. His white count did increase which is likely due to steroids and with his hypoxia improved to room air at rest and with ambulation is unlikely that this is due to a bacterial pneumonia. The respiratory panel is still pending however COVID and flu testing were negative. I discussed with him the plan for possible discharge today he expressed understanding the risk benefits of going home and would like to go home today. He desatted to 91% with ambulation and is maintaining his oxygen saturations at 93 to 94% on room air. I discussed with him continuation of his home scheduled inhalers as well as using his rescue inhaler every 4-6 hours for the next 24 to 48 hours while the steroids kick in. I did place him on a 2-week steroid taper and I recommend that he follow-up with his PCP as an outpatient. He did have some mild hypercalcemia which is resolving but I do recommend lab work and follow-up. He is being discharged today due to rapid clinical improvement and his desire for discharge. I also discussed with him that if he does worsen on his steroid taper that it may indicate that he had an early superimposed bacterial infection and may benefit from oral antibiotics and to follow-up with his PCP at that point, however at this point there is no significant behavior consistent with pneumonia as he has remained afebrile and that the rise in white count today can be related to steroid use especially since symptomatically he is improving. 2. Hypertension, hyperlipidemia, BPH, vitamin D deficiency, left foot drop, history of stroke, history of L1 compression fracture, glaucoma are all chronic medical conditions which complicate his care. His home medications were continued where appropriate Physical Exam Narrative General: Alert, Oriented x3, Cooperative, No apparent distress HEENT: Atraumatic, PERRLA, EOMI, Normocephalic, hard of hearing Oral: Moist Mucosa Neck: Supple, No JVD Lungs: Diminished, Normal air movement, No rhonchi, No wheeze, No rales Cardiovascular: Regular rate, Regular Rhythm, Normal S1, Normal S2, No murmurs Abdomen: Soft, Non Tender, Non-Distended, No Hepato-splenomegaly Extremities: No edema, Capillary Refill Less than 3 Seconds Skin: No rashes, No breakdown Musculoskeletal: No Tenderness to Palpation of Joints or Extremities Neurological: Cranial nerves II-XII grossly intact, Motor Exam 5/5 strength throughout, Sensory exam intact to light touch and pain Psych/Mental Status: Normal Affect, Appropriate Weight / BMI Weight Weight: 205 lb 11.06 oz Body Mass Index (BMI) 32.2 ABG / Lab / Microbiology Data 09/23/23 05:25 09/23/23 05:25 Laboratory: Laboratory Results - last 24 hr 09/23/23 05:25: WBC 14.8 H, RBC 4.73, Hgb 15.0, Hct 44.5, MCV 94.1 H, MCH 31.7, MCHC 33.7, RDW Std Deviation 46.0 H, RDW Coeff of Flora 13.2, Plt Count 252, MPV 8.6, Immature Gran % (Auto) 0.500, Neut % (Auto) 90.9 H, Lymph % (Auto) 6.6 L, Cuming % (Auto) 1.9, Eos % (Auto) 0.0, Baso % (Auto) 0.1, Absolute Neuts (auto) 13.5 H, Absolute Lymphs (auto) 0.98, Nucleated RBC % 0, Sodium 137, Potassium 3.6, Chloride 106, Carbon Dioxide 24.0, Anion Gap 7, BUN 17, Creatinine 0.81, Estim Creat Clear Calc 63.47, Est GFR (MDRD) Af Amer 117, Est GFR (MDRD) Non-Af 97, BUN/Creatinine Ratio 21.1 H, Glucose 223 H, Calcium 10.2 H, Phosphorus 2.4 L, Magnesium 2.2, Total Bilirubin 0.40, AST 16, ALT 28, Alkaline Phosphatase 78, Total Protein 6.9, Albumin 3.5, Globulin 3.4, Albumin/Globulin Ratio 1.0 Microbiology: Microbiology 09/22/23 20:22 Urine, Clean Catch Legionella Antigen - Final 09/22/23 20:22 Urine, Clean Catch Streptococcus pneumoniae Antigen (M - Final 09/22/23 13:05 Nasal Secretion SARS-CoV-2 & FLU Antigen (Rapid) - Final D/C Instructions Discharge Diet: Low fat / Low cholesterol Call your doctor if you observe: Fever of 101 or Higher, Shortness of breath, Dizziness, Fainting spells, Swelling in the ankles, Chest pain and Increased palpitations (irregular heartbeat) Meaningful Use Info Meaningful Use Diagnoses (Choose all that apply): None applicable Discharge Plan Admission Admit Date/Time: 09/22/23 14:52 Attending Provider: Vadim Blue Primary Care Provider: Jessica Santiago Consulting Providers: Treva Sheridan Instructions Additional Instructions / Restrictions: During your steroid taper if you do suddenly develop worsening shortness of breath I would follow-up with your PCP for possible antibiotic prescription if indicated. Discharge Orders/Prescriptions Prescriptions: New prednisone 10 mg tablet 10 mg PO DAILY Qty: 32 0RF Rx Instructions: 4 tablets daily for 3 days then 3 tablets daily for 3 days then 2 tablets daily for 3 days then 1 tablet daily for 3 days then half tablet daily for 4 days Continued budesonide-formoterol [Symbicort] 160-4.5 mcg/actuation HFA aerosol inhaler 2 puff inhalation BID Qty: 10.2 6RF fluticasone propionate 50 mcg/actuation spray,suspension 2 spray intranasal DAILY Qty: 16 3RF Spiriva Respimat 2.5 mcg/actuation mist 2 inh inhalation QDAY Qty: 1 6RF Rx Instructions: administer at approximately the same time(s) each day clopidogrel 75 MG tablet 75 mg PO DAILY losartan 50 mg tablet 50 mg PO DAILY Patient Comments: TAKE 1 TABLET BY MOUTH DAILY latanoprost 0.005 % drops 1 drp EACH EYE QHS Patient Comments: Instill 1 drop into both eyes once a day pravastatin 40 mg tablet 40 mg PO DAILY Patient Comments: TAKE 1 TABLET BY MOUTH EVERY DAY tamsulosin 0.4 mg capsule 0.4 mg PO QHS Patient Comments: TAKE 1 CAPSULE BY MOUTH AT BEDTIME ergocalciferol (vitamin D2) 1,250 mcg (50,000 unit) capsule 1,250 mcg PO UD Patient Comments: TAKE 1 CAPSULE BY MOUTH twice a week Rx Instructions: 2x/week takes on and saturdays Combivent Respimat 20-100 mcg/actuation Mist 2 puff INHALATION Q6H Patient Comments: 25 mcg/100 mcg in medicatio bag albuterol sulfate 90 mcg/actuation HFA aerosol inhaler 2 puff inhalation Q6H PRN (Reason: shortness of breath or wheezing) Qty: 8.5 0RF Referrals / Follow Up: Jesisca Santiago DO [Primary Care Provider] - 09/30/23 1:30 pm Disposition Disposition (needs filled in before D/C Order can be placed): Home, Self Care Charges/Coding Visit Charges Inpatient E&M: 11557 Disch Hosp >30min
--- NOTE | 2023-09-23 15:22 | PHA.DC.MR.R ---
Pharmacy [place] Med Reconciliation Pharmacy Service has performed discharge medication reconciliation for this patient. Recently had prednisone, did not residential youth counselor. The patient's discharge medication list was reviewed for discrepancies and discrepancies were resolved. Medications at Discharge Home Medications clopidogrel 75 mg tablet 75 mg PO DAILY blood thinner 05/23/20 ergocalciferol (vitamin D2) 1,250 mcg (50,000 unit) capsule 1,250 mcg PO UD Check with primary doctor 01/24/23 ipratropium 20 mcg-albuterol 100 mcg/actuation mist for inhalation (Combivent Respimat) 2 puff inhalation Q6H COPD 01/24/23 latanoprost 0.005 % eye drops 1 drp EACH EYE QHS Check with primary doctor 01/24/23 losartan 50 mg tablet 50 mg PO DAILY high blood pressure 01/24/23 pravastatin 40 mg tablet 40 mg PO DAILY 01/24/23 tamsulosin 0.4 mg capsule 0.4 mg PO QHS Check with primary doctor 01/24/23 albuterol sulfate 90 mcg/actuation aerosol inhaler 2 puff inhalation Q6H PRN shortness of breath or wheezing #8.5 grams 01/25/23 budesonide-formoterol HFA 160 mcg-4.5 mcg/actuation aerosol inhaler (Symbicort) 2 puff inhalation BID #10.2 grams 02/18/23 fluticasone propionate 50 mcg/actuation nasal spray,suspension 2 spray intranasal DAILY #16 grams 08/20/23 tiotropium bromide 2.5 mcg/actuation mist for inhalation (Spiriva Respimat) 2 inh inhalation QDAY #1 ea 08/20/23 prednisone 10 mg tablet 10 mg PO DAILY #32 tabs 09/23/23
== END 2023-09-23 17:43 | disposition home or self-care (01) | DRG 191 ==
LOC: ED 14:59 → MS3 15:08
PROVIDERS: Admitting Provider Internal Medicine; Emergency Provider Emergency Medicine; PCP Family Medicine; Visit Provider Family Medicine
DX: J44.1 Chronic obstructive pulmonary disease with (acute) exacerbation (principal); J45.901 Unspecified asthma with (acute) exacerbation; N13.8 Other obstructive and reflux uropathy; D72.10 Eosinophilia, unspecified; I10 Essential (primary) hypertension; E78.5 Hyperlipidemia, unspecified; E55.9 Vitamin D deficiency, unspecified; M21.372 Foot drop, left foot; N40.1 Benign prostatic hyperplasia with lower urinary tract symptoms; R09.02 Hypoxemia; Z79.02 Long term (current) use of antithrombotics/antiplatelets; Z79.51 Long term (current) use of inhaled steroids; Z79.899 Other long term (current) drug therapy; Z86.73 Personal history of transient ischemic attack (TIA), and cerebral infarction without residual deficits; Z87.81 Personal history of (healed) traumatic fracture; Z87.891 Personal history of nicotine dependence
CPT/HCPCS: 36415; 71045; 80048; 80053; 82803; 83605; 83735; 84100; 84484; 85025; 87428; 87449; 87633; 93005; 94640; 94668; 97162; 97165; 99252; 99285; A4216; G0463

== ENCOUNTER 2023-10-19 17:40 | Inpatient (IN) | payer MEDICARE, OTHER, SELFPAY ==
[2023-10-19] VITALS (27 sets, daily range): BP systolic 130–167; BP diastolic 75–132; PULSE 84–120; RESP 14–45; TEMP 35.8–36.7; O2SAT 67–100; BMI 30.7
--- NOTE | 2023-10-19 17:47 | EKG12_ITS ---
Test Reason : SOB Blood Pressure : / mmHG Vent. Rate : 096 BPM Atrial Rate : 096 BPM P-R Int : 196 ms QRS Dur : 062 ms QT Int : 360 ms P-R-T Axes : 064 081 096 degrees QTc Int : 454 ms Sinus rhythm with Premature atrial complexes Nonspecific ST abnormality Abnormal ECG Confirmed by JIMMY CORNEJO, JOCELYNN ([id number]), scientific editor BETY KIRBY ([id number]) on 10/20/2023 9:37:12 AM Referred By: Confirmed By:JOCELYNN MARQUEZ MD
--- NOTE | 2023-10-19 17:49 | ED.VIS.DYS ---
HPI History of Present Illness Chief Complaint: Shortness of Breath Informant: patient and spouse/S.O. Narrative Narrative: 83-year-old male presenting with his spouse to the ED via private car for respiratory distress. He has been in and out of the hospital in the last couple months for the same, this episode has been maybe 4 to 5 days. Increased coughing, sputum production is white, denies any blood. Denies any chest pain. No fevers that he knows of but he was sweating today. Denies any leg edema. Apparently he got over influenza a several weeks ago but feels like he is breathing worse right now. No oxygen at home, when he has gone to the doctor he has not required it based on ambulatory testing, but he missed his last pulmonary appointment with Dr. Clark here. [facility] Medical History (Updated 10/19/23 @ 18:[address] Macey Arevalo MD) BPH (benign prostatic hyperplasia) COPD (chronic obstructive pulmonary disease) Foot drop, left Glucose intolerance Hyperlipidemia Hypertension Presbycusis Prostate enlargement Stroke Vitamin D deficiency Home Medications clopidogrel 75 mg tablet 75 mg PO DAILY blood thinner 05/23/20 [History Last Taken 10/27/20] ergocalciferol (vitamin D2) 1,250 mcg (50,000 unit) capsule 1,250 mcg PO UD Check with primary doctor 01/24/23 [History Last Taken Unknown] ipratropium 20 mcg-albuterol 100 mcg/actuation mist for inhalation (Combivent Respimat) 2 puff inhalation Q6H COPD 01/24/23 [History Last Taken Unknown] latanoprost 0.005 % eye drops 1 drp EACH EYE QHS Check with primary doctor 01/24/23 [History Last Taken Unknown] losartan 50 mg tablet 50 mg PO DAILY high blood pressure 01/24/23 [History Last Taken Unknown] pravastatin 40 mg tablet 40 mg PO DAILY 01/24/23 [History Last Taken Unknown] tamsulosin 0.4 mg capsule 0.4 mg PO QHS Check with primary doctor 01/24/23 [History Last Taken Unknown] albuterol sulfate 90 mcg/actuation aerosol inhaler 2 puff inhalation Q6H PRN shortness of breath or wheezing #8.5 grams 01/25/23 [Rx Last Taken Unknown] budesonide-formoterol HFA 160 mcg-4.5 mcg/actuation aerosol inhaler (Symbicort) 2 puff inhalation BID #10.2 grams 02/18/23 [Rx Last Taken Unknown] fluticasone propionate 50 mcg/actuation nasal spray,suspension 2 spray intranasal DAILY #16 grams 08/20/23 [Rx Last Taken Unknown] timolol maleate 0.5 % eye drops 1 drp ophthalmic (eye) Q12H 10/19/23 [History Last Taken Unknown] Allergy/AdvReac Type Severity Reaction Status Date / Time Penicillins Allergy Hives Verified 10/19/23 17:44 adhesive tape AdvReac Other Verified 10/19/23 17:44 fentanyl AdvReac PT UNSURE Verified 10/19/23 17:44 OF REACTION morphine AdvReac PT UNSURE Verified 10/19/23 17:44 OF REACTION Family History Other COPD (chronic obstructive pulmonary disease) Cancer Surgical History (Updated 10/19/23 @ 18:[address] Macey Arevalo MD) H/O Spinal surgery History of open reduction and internal fixation (ORIF) procedure Status post-operative repair of hip fracture Total knee replacement status Social History household members: spouse housing: house Smoking Status: Former smoker Tobacco: How many years used: 30 alcohol intake: former substance use type: does not use ROS ROS ED Review of Systems ROS Unobtainable: other Details: Limited due to respiratory distress and extremely hard of hearing Constitutional Constitutional ED: Denies chills or fever(s) Eyes Eyes: Denies change in vision or diplopia Cardiovascular Cardiovascular: Denies chest pain or palpitations Respiratory/Chest Respiratory/Chest: Reports cough and dyspnea Integumentary Denies abscess or rash Neurologic Neurologic: Denies headache(s), paresthesias or weakness EXAM Physical Exam Const Vital Signs: 10/19/23 17:41 10/19/23 17:58 10/19/23 17:58 Temperature 96.5 F L Temperature Source Temporal Pulse Rate 103 H 101 H 106 H Respiratory Rate 28 H 34 H 34 H Respiratory Pattern Tachypnea Tachypnea Blood Pressure 163/101 H Blood Pressure Mean 121 Pulse Ox 100 100 Oxygen Delivery Method Non-Rebreather Oxygen Flow Rate (L/min) 15 Fraction of Inspired Oxygen (FIO2) 50 10/19/23 18:09 10/19/23 18:21 10/19/23 17:44 Temperature Temperature Source Pulse Rate 103 H Respiratory Rate 26 H Respiratory Pattern Blood Pressure Blood Pressure Mean Pulse Ox 100 Oxygen Delivery Method Room Air Oxygen Flow Rate (L/min) Fraction of Inspired Oxygen (FIO2) 30 10/19/23 17:45 10/19/23 17:50 10/19/23 17:56 Temperature Temperature Source Pulse Rate 102 H 107 H 100 Respiratory Rate 34 H 32 H 32 H Respiratory Pattern Blood Pressure 167/132 H 155/110 H Blood Pressure Mean 143 118 Pulse Ox 100 100 100 Oxygen Delivery Method Non-Rebreather Oxygen Flow Rate (L/min) Fraction of Inspired Oxygen (FIO2) 10/19/23 18:00 10/19/23 18:05 10/19/23 18:10 Temperature Temperature Source Pulse Rate 105 H 99 101 H Respiratory Rate 25 H 34 H 38 H Respiratory Pattern Blood Pressure 136/99 H Blood Pressure Mean 107 Pulse Ox 100 100 100 Oxygen Delivery Method Bi-pap Oxygen Flow Rate (L/min) Fraction of Inspired Oxygen (FIO2) 10/19/23 18:15 10/19/23 18:20 10/19/23 18:30 Temperature Temperature Source Pulse Rate 98 100 98 Respiratory Rate 31 H 31 H 35 H Respiratory Pattern Blood Pressure 154/90 H Blood Pressure Mean 110 Pulse Ox 99 97 Oxygen Delivery Method Bi-pap Oxygen Flow Rate (L/min) Fraction of Inspired Oxygen (FIO2) 10/19/23 18:40 Temperature Temperature Source Pulse Rate 98 Respiratory Rate 28 H Respiratory Pattern Blood Pressure Blood Pressure Mean Pulse Ox Oxygen Delivery Method Oxygen Flow Rate (L/min) Fraction of Inspired Oxygen (FIO2) 25 Positive well nourished and well developed Constitutional Narrative: Moderate respiratory distress General Appearance ED: well developed HEENT Reports moist mucous membranes normocephalic and atraumatic Eyes PERRL and EOMs intact bilaterally Neck full ROM, supple and no JVD Resp Resp Narrative: Respiratory distress with accessory muscle use, diffuse expiratory wheezes sounds diminished but symmetrically so. Trachea midline. No rales or rhonchi. Speaking in 3 word sentences. Cardio regular rate, regular rhythm and no murmurs Rate: tachycardic GI non-tender and non-distended Auscultation: normoactive bowel sounds Palpation: soft Back/Spine no CVA tenderness General Back: other FROM Extremity normal to inspection General Extremety ED: Negative for edema, pulses abnormal or tenderness General Extremity: Negative for edema or pulses abnormal Neuro oriented x3, CN's II-XII intact bilaterally and no sensory deficits noted Sensorium / Orientation: awake and alert Motor Exam: strength 5/5 throughout Psych mental status grossly normal Skin no rashes or lesions noted and no wounds MDM MDM MDM Narrative Medical decision making narrative: Upon triage and patient, initial pulse oximetry shows that his pulse ox on room air is in the 60s. Respiratory called emergently to the bedside, will plan to place him on BiPAP as we also administer aerosols and Solu-Medrol. Does not sound like he is in pulmonary edema. ABG obtained and shows an acute respiratory acidosis, it is mild. This is due to hypercapnia. He is tolerating BiPAP is helping his breathing as his aerosols. Chest x-ray 1 view mitral rotation shows a slight opacity in the right lower lobe, it was present on his prior x-ray a month ago, nodule versus infiltrate. I disagree with the radiologist here; it was read as possible pneumonia last time and it is in the same place and more prominent now. Labs are noted otherwise unremarkable, except for elevated calcium. This was present last month as well. Antibiotics to cover pneumonia are started, and plan is to admit him to the hospital. Lab Data Attestation: I reviewed the patient's lab results. Labs: Laboratory Results - last 24 hr 10/19/23 17:50 WBC 11.7 H RBC 5.28 Hgb 16.7 H Hct 49.4 MCV 93.6 MCH 31.6 MCHC 33.8 RDW Std Deviation 44.5 H RDW Coeff of Flora 13.2 Plt Count 284 MPV 8.5 Immature Gran % (Auto) 0.500 Neut % (Auto) 59.2 Lymph % (Auto) 23.2 Mobile % (Auto) 7.9 Eos % (Auto) 8.6 H Baso % (Auto) 0.6 Absolute Neuts (auto) 6.9 Absolute Lymphs (auto) 2.71 Nucleated RBC % 0 Sodium 145 Potassium 3.8 Chloride 109 H Carbon Dioxide 28.0 Anion Gap 8 BUN 15 Creatinine 0.80 Est GFR (MDRD) Af Amer 119 Est GFR (MDRD) Non-Af 98 BUN/Creatinine Ratio 18.9 Glucose 178 H Lactic Acid 1.1 Calcium 10.4 H Troponin I High Sens 12 B-Natriuretic Peptide 10.1 ABG Data ABG results: ABG 10/19/23 18:13 Specimen Type ART Sample Site R Radial pH 7.32 L Bicarbonate Actual 27.6 H Total CO2 29 Base Excess 1 O2 Saturation 100 H O2 % 50.0 ABG pCO2 53.8 H ABG pO2 187 H Neville Test Positive Respiration Rate 14 O2 Delivery Device BiPAP Vent Mode Not entered Radiography Diagnostic Testing: Clinical Impression(s) from Imaging Studies Chest X-Ray 10/19/23 18:15 IMPRESSION: Bilateral lower lobe atelectasis, otherwise no acute cardiac pulmonary disease. Electronically Signed: Rose Marie Sage MD at 18:41 EST , Rhythm Strip Rhythm Strip: Sinus Tach Rate: 105 Ectopy: None EKG Initial EKG: Attestation: I personally reviewed and interpreted this EKG as follows: Interpretation: Sinus Rhythm and No Acute Injury Pattern Management Discussion w/another healthcare provider: Hospitalist Critical Care Time Critical Care Time: Yes Critical care time (excluding procedures): 30-74 minutes (32 min), Including time spent:, Discussing w/Patient &/or Family/Retail Analyst, Discussing w/Consultants, Arranging Admission or Transfer and Performing Direct Patient Care at Bedside Discharge Plan Dx/Rx/DC Orders Clinical Impression: Acute respiratory failure with hypoxia and hypercapnia, Acute exacerbation of chronic obstructive pulmonary disease (COPD), Pneumonia, Hypercalcemia Disposition Disposition: Acute Care [facility]
[2023-10-19 17:57] LABS: Absolute Lymphocyte Count 2.71 X10^3/uL (0.83-4.51); Absolute Neutrophil Count 6.9 X10^3/uL (2.0-7.7); Basophil# 0.07 X10^3/uL; Basophil% 0.6 % (0-1); Eosinophil# 1.01 X10^3/uL; Eosinophils% 8.6 % (0-5); Hematocrit 49.4 % (40-54); Hemoglobin 16.7 g/dL (13.0-16.5); Lymphocyte # 2.71 X10^3/ul (0.83-4.51); Lymphocyte % 23.2 % (19-41); Mean Corp Hgb Conc 33.8 g/dL (32-36); Mean Corpuscular Hgb 31.6 pg (27.0-32.0); Mean Corpuscular Volume 93.6 fL (80-94); Mean Platelet Vol. 8.5 fl (6.2-12.0); Monocyte# 0.92 X10^3/uL; Monocyte% 7.9 % (0-10); NRBC Flagged by Analyzer 0 % (0-5); Neutrophil # 6.91 X10^3/uL (2.7-7.7); Neutrophil % 59.2 % (47-70); Platelet Count 284 K/mm3 (150-450); RBC Distribution Width CV 13.2 % (11.6-14.6); RBC Distribution Width SD 44.5 fl (35.1-43.9); Red Blood Count 5.28 M/mm3 (4.6-6.2); White Blood Count 11.7 K/mm3 (4.4-11.0)
[2023-10-19] MEDS: Ipratropium/Albuterol Sulfate 3 ML AMPUL.NEB INHALATION ×2 (17:58→23:18)
[2023-10-19] MEDS: MethylPREDNISolone 125 MG/2 ML Vial IV (18:06)
[2023-10-19] MEDS: Albuterol 2.5 MG/3 ML VIAL.NEB. INHALATION ×3 (18:08→18:20)
--- NOTE | 2023-10-19 18:15 | RAD_ITS ---
STUDY: X-RAY CHEST REASON FOR EXAM: Male, 83 years old. dyspnea TECHNIQUE: Single AP portable view of the chest. COMPARISON: 09/22/2023. FINDINGS: The lungs are well expanded with bilateral lower lobe atelectasis, otherwise clear. There is no demonstrated pleural abnormality. Normal size heart. Normal mediastinum and jaime. Normal visualized pulmonary arteries. There is atherosclerotic calcification of the aortic arch with tortuosity. There are diffuse degenerative changes of the visualized thoracic spine. There is degenerative osteoarthritis of the bilateral shoulders. There is no demonstrated abnormality of the visualized soft tissue structures of the upper abdomen. RAD/Chest 1 View (Portable) IMPRESSION: Bilateral lower lobe atelectasis, otherwise no acute cardiac pulmonary disease. Electronically Signed: Rose Marie Sage MD at 18:41 EST ,
[2023-10-19 18:17] LABS: Allen Test Positive; Base Excess 1 mmol/L (-2 to +2); Bicarbonate 27.6 mmol/L (22-26); Blood Gas Specimen Type ART; Mode Not entered; O2 Delivery Device BiPAP; PO2 187 mmHG (75-100); RR 14; SITE R Radial; SO2 100 % (95-99); Total Carbon Dioxide 29 mmol/L; pCO2 53.8 mmHg (35-45); pH 7.32 (7.35-7.45)
[2023-10-19 18:17] LABS: Anion Gap 8 (5-15); BUN 15 mg/dL (7-18); BUN/Creat Ratio 18.9 RATIO (10-20); Calcium,Total 10.4 mg/dL (8.5-10.1); Chloride 109 mmol/L (98-107); EST Glomerular Filtration Rate 98 mL/min (>60); Est Glom Filt Rate - Afr Amer 119 mL/min (>60); Glucose 178 mg/dL (74-106); Potassium 3.8 mmol/L (3.5-5.1); Sodium Level 145 mmol/L (136-145); Troponin-I HS 12 pg/mL (3.0-78.0)
--- OUTSIDE RECORDS SUMMARY | 2023-10-19 18:17 | XMS RPT_ITS | CCD ---
Author Name Unknown Address [address] [place] [address] Organization [facility] Care Team Providers Care Director Of Clinical Trials Name Role Phone PROVIDER, UNKNOWN Referring Unavailable No, PCP Primary Care Unavailable Purvi Sanchez Attending Unavailable SELF, SELF Referring Unavailable KASSANDRA HOLLEY DO Primary Care Physician KASSANDRA HOLLEY DO Attending Unavailable KASSANDRA HOLLEY DO Primary Care Unavailable MCCUISFARZANEH THOMPSON Attending [place] vailable KASSANDRA HOLLEY DO Primary Care Unavailable KASSANDRA HOLLEY DO Attending Unavailable KASSANDRA HOLLEY DO Primary Care Unavailable KASSANDRA HOLLEY DO Attending Unavailable KASSANDRA HOLLEY DO Primary Care Unavailable Allergies Allergy Classification Reported Allergen(s) Allergy Type Date of Onset Reaction(s) Facility (4 sources) atorvastatin; Translations: [atorvastatin] Drug Allergy Swelling (morphologic abnormality) [facility] Medications Current Medications Medication Drug Class(es) Dates Sig (Normalized) Sig (Original) 120 actuat albuterol 0.1 mg/actuat / ipratropium bromide 0.02 mg/actuat inhalation spray (1 source) Anticholinergic, beta2-Adrenergic Agonist Start: 12-19-2022 take 1 dose by inhalation four times daily Combivent Respimat CFC free 20 mcg-100 mcg/inh inhalation aerosol Dose = 1 puff(s), Inhalation, QID, # 1 EA, 2 Refill(s), Pharmacy: [id number], COPD with emphysema, 169, cm, 11/19/22 11:25:00 EST, Height Start Date: 12/19/22 Status: Ordered Allergy Relief (1 source) Start: 02-26-2022 take 1 mg by mouth once daily Allergy Relief mg =, Oral, qDay, pt unsure of name or mg, 0 Refill(s) Start Date: 02/26/22 Status: Ordered azithromycin 250 mg oral tablet (1 source) Macrolide Antimicrobial Start: 01-07-2023 End: 01-12-2023 Zithromax 250 mg oral tablet Dose : 250 mg = 1 tab(s), Oral, qDay, follow directions on [facility]-Martell, X 5 day(s), # 6 tab(s), 0 Refill(s), 01/12/23 17:06:00 EDT, Pharmacy: [id number], Acute bronchitis, 168.5, cm, 01/07/23 16:00:00 EDT, Height, 93.8 Start Date: 01/07/23 Stop Date: 01/12/23 Status: Ordered cefdinir 300 mg oral capsule (1 source) Cephalosporin Antibacterial Start: 01-07-2023 End: 01-17-2023 cefdinir 300 mg oral capsule Dose : 300 mg = 1 cap(s), Oral, q12h, X 10 day(s), # 20 cap(s), 0 Refill(s), 01/17/23 17:06:00 EDT, Pharmacy: [id number], 168.5, cm, 01/07/23 16:00:00 EDT, Height, 93.8 Start Date: 01/07/23 Stop Date: 01/17/23 Status: Ordered clopidogrel 75 mg oral tablet (4 sources) P2Y12 Platelet Inhibitor Start: 08-09-2022 Plavix 75 mg oral tablet Dose : 75 mg = 1 tab(s), Oral, qDay, # 90 tab(s), 1 Refill(s), Pharmacy: [id number], Stroke History of stroke, 169.5, cm, 08/09/22 9:18:00 EDT, Height, kg, 08/09/22 9:18:00 EDT, Dosing Weight Start Date: 08/09/22 Status: Ordered Problems Problem Classification Problem Date Documented Da te Episodic/Chronic Acquired foot deformities (4 sources) Foot-drop 07-06-2020 Episodic Acute bronchitis (4 sources) Acute bronchitis 10-14-2019 Episodic Acute cerebrovascular disease (1 source) Cerebrovascular accident 05-10-2020 Chronic Cardiac dysrhythmias (2 sources) Bradycardia, unspecified; Translations: [Bradycardia, unspecified] Onset: 11-10-2018 Chronic Chronic obstructive pulmonary disease and bronchiectasis (1 source) Chronic obstructive lung disease 01-07-2023 Chronic Conditions associated with dizziness or vertigo (7 sources) Benign paroxysmal positional vertigo; Translations: [Vertigo] 08-10-2020 Episodic Diabetes mellitus without complication (4 sources) Hyperglycemia 12-14-2016 Episodic Diabetes mellitus without complication (2 sources) Prediabetes; Translations: [Prediabetes] Onset: 11-10-2018 Diseases of white blood cells (2 sources) Elevated white blood cell count, unspecified; Translations: [Elevated white blood cell count, unspecified] Onset: 11-10-2018 Chronic Disorders of lipid metabolism (6 sources) Hyperlipidemia, unspecified; Translations: [Hyperlipidemia] Onset: 11-10-2018 05-10-2020 Chronic Essential hypertension (6 sources) Essential (primary) hypertension; Translations: [Hypertensive disorder] Onset: 11-10-2018 05-10-2020 Chronic External cause codes: Fall (2 sources) Fall on same level due to ice and snow, initial encounter; Translations: [Fall on same level due to ice and snow, initial encounter] Onset: 11-10-2018 Fluid and electrolyte disorders (6 sources) Hypokalemia; Translations: [Hypokalemia] Onset: 11-10-2018 12-14-2016 Episodic Fracture of lower limb (8 sources) Other fracture of upper and lower end of left fibula, initial encounter for closed fracture; Translations: [Displaced segmental fracture of shaft of left fibula, initial encounter for closed fracture] Onset: 11-10-2018 Episodic Genitourinary symptoms and ill-defined conditions (2 sources) Other retention of urine; Translations: [Other retention of urine] Onset: 11-10-2018 Episodic Hyperplasia of prostate (6 sources) Benign prostatic hyperplasia with lower urinary tract symptoms; Translations: [Benign prostatic hyperplasia] Onset: 11-10-2018 12-14-2016 Chronic Nausea and vomiting (4 sources) Nausea 08-10-2020 Episodic Nonspecific chest pain (1 source) Atypical chest pain 01-07-2023 Episodic Nutritional deficiencies (6 sources) Vitamin D deficiency, unspecified; Translations: [Vitamin D deficiency] Onset: 11-10-2018 11-09-2020 Chronic Osteoarthritis (2 sources) Primary osteoarthritis, right hand; Translations: [Primary osteoarthritis, right hand] Onset: 11-10-2018 Chronic Other aftercare (4 sources) Post-discharge follow-up 05-10-2020 Episodic Other circulatory disease (4 sources) History of cerebrovascular accident 10-16-2021 Episodic Other connective tissue disease (2 sources) Presence of artificial knee joint, bilateral; Translations: [Presence of artificial knee joint, bilateral] Onset: 11-10-2018 Chronic Other connective tissue disease (3 sources) Muscle pain 11-19-2022 Episodic Other ear and sense organ disorders (2 sources) Unspecified hearing loss, bilateral; Translations: [Unspecified hearing loss, bilateral] Onset: 11-10-2018 Chronic Other fractures (1 source) Fracture of bone of hip region 07-06-2020 Episodic Other gastrointestinal disorders (2 sources) Constipation, unspecified; Translations: [Constipation, unspecified] Onset: 11-10-2018 Episodic Other inflammatory condition of skin (4 sources) Psoriasis 11-09-2020 Chronic Other lower respiratory disease (2 sources) Hypoxemia; Translations: [Hypoxemia] Onset: 11-10-2018 Episodic Other lower respiratory disease (3 sources) Dyspnea on exertion 11-19-2022 Episodic Other nutritional; endocrine; and metabolic disorders (2 sources) Body mass index (BMI) 32.0-32.9, adult; Translations: [Body mass index (BMI) 32.0-32.9, adult] Onset: 11-10-2018 Chronic Other nutritional; endocrine; and metabolic disorders (2 sources) Hypomagnesemia; Translations: [Hypomagnesemia] Onset: 11-10-2018 Chronic Other nutritional; endocrine; and metabolic disorders (2 sources) Obesity, unspecified; Translations: [Obesity, unspecified] Onset: 11-10-2018 Chronic Other nutritional; endocrine; and metabolic disorders (4 sources) Body mass index 30+ - obesity 08-09-2022 Chronic Other screening for suspected conditions (not mental disorders or infectious disease) (4 sources) Raised prostate specific antigen 07-25-2021 Episodic Other upper respiratory disease (4 sources) Seasonal allergy 08-10-2020 Chronic Other upper respiratory infections (4 sources) Acute sinusitis 12-14-2020 Episodic Poisoning by nonmedicinal substances (1 source) Tick bite 04-24-2021 Episodic Residual codes; unclassified (4 sources) Needs influenza immunization 08-10-2020 Episodic Residual codes; unclassified (4 sources) Noncompliance with treatment 05-10-2020 Episodic Residual codes; unclassified (4 sources) Requires vaccination 10-14-2019 Episodic Screening and history of mental health and substance abuse codes (5 sources) Personal history of nicotine dependence; Translations: [Ex-tobacco user] Onset: 11-10-2018 08-09-2022 Episodic Septicemia (except in labor) (1 source) Sepsis 07-06-2020 Episodic Spondylosis; intervertebral disc disorders; other back problems (2 sources) Spondylosis without myelopathy or radiculopathy, lumbar region; Translations: [Spondylosis w/o myelopathy or radiculopathy, lumbar region] Onset: 11-10-2018 Chronic Spondylosis; intervertebral disc disorders; other back problems (4 sources) Neck pain 08-10-2020 Episodic Unclassified (4 sources) Vaccination needed 11-27-2021 Unclassified (12 sources) Patient encounter status 08-09-2022 Results Test Name Value Interpretation Reference Range Facil ity Encounters Encounter Date Encounter Type Care Provider Facility Start: 01-09-2023 End: 01-10-2023 ambulatory KASSANDRA HOLLEY DO Facility:B Start: 01-09-2023 End: 01-09-2023 Patient encounter procedure KASSANDRA HOLLEY DO [facility] Start: 12-09-2022 End: 12-10-2022 ambulatory KASSANDRA HOLLEY DO Facility:[facility] Start: 12-09-2022 End: 12-09-2022 Patient encounter procedure KASSANDRA HOLLEY DO [facility] Start: 11-19-2022 End: 11-20-2022 ambulatory KASSANDRA HOLLEY DO Facility:[facility] Start: 11-19-2022 End: 11-19-2022 Patient encounter procedure KASSANDRA HOLLEY DO [facility] Start: 04-02-2022 End: 04-03-2022 ambulatory FARZANEH CHANEY [employer] SUPERVISOR-INSULATOR TECHNICIAN Facility:B Start: 04-02-2022 End: 04-02-2022 Patient encounter procedure [facility]ZANEH [facility] Start: 06-28-2020 Patient encounter procedure SELF SELF Facility:[facility] Start: 11-10-2018 Evaluation and management of inpatient UNKNOWN PROVIDER [facility] Procedures Date Procedure Procedure Detail Performing Clinician Appendectomy FARZANEH BELLA ION [employer] SUPERVISOR-[facility] Arthroplasty of knee FARZANEH CHANEY [employer] SUPERVISOR-[facility] Immunizations Immunization Date Immunization Notes Care Provider Reymundo carrasco 08-09-2022 influenza, high dose seasonal, preservative-free KASSANDRA RAMY DO [facility] 11-27-2021 COVID-19, mRNA, LNP- S, PF, 100 mcg or 50 mcg dose; Translations: [Moderna COVID-19 Vaccine] [facility] 07-25-2021 influenza, high dose seasonal, preservative-free; Translations: [Fluad Quadrivalent PF ] [facility] 03-13-2021 SARS-CoV-2 mRNA (tozinameran) vaccine [facility] 02-20-2021 SARS-CoV-2 mRNA (tozinameran) vaccine [facility] 07-06-2020 influenza, injectabl e, quadrivalent, preservative free; Translations: [Fluarix PF Quadrivalent ] [facility] 11-01-2019 pneumococcal polysaccharide vaccine, 23 valent; Translations: [Pneumovax 23] FARZANEH CHANEY [employer]ANG SUPERVISOR-INSULATOR TECHNICIAN [facility] 02-03-2017 pneumococcal conjuga te vaccine, 13 valent FARZANEH CHANEY [employer] SUPERVISOR-INSULATOR TECHNICIAN [facility] 03-30-2015 tetanus toxoid, redu ja diphtheria toxoid, and acellular pertussis vaccine, adsorbed FARZANEH CHANEY [employer] SUPERVISOR-INSULATOR TECHNICIAN [facility] Payers Date Payer Category Payer Medicare [id number] 2005 Private Health Insurance [id number] 1940 Unknown [id number] [id number] 1940 Unknown [id number] [id number] 1940 Unknown [id number] [id number] [id number] 1940 Unknown [id number] 2.16.8 [id number] 1940 Unknown [id number] 2.16.8 [id number] 1940 Unknown [id number] Medicare Private Health Insurance Social History Date Type Detail Facility Start: 05-10-2020 Tobacco smoking status Ex-smoker (fi nding) [facility] Evaluation + Plan note Laboratory Note Date & Type Note Facility Evaluation + Plan note Future Appointments Appointment Date:06/04/2022 10:00:00 AM Scheduled Provider:KASSANDRA HOLLEY DO Location:[facility] ([place], [place]) Appointment Type:PC Wellness Medicare Future Scheduled TestsProstate Specific Antigen 08/02/21Thyroid Stimulating Hormone 02/26/22Lipid Profile 02/26/22Vitamin D Level 02/26/22Complete Metabolic Panel 02/26/22 [facility] Evaluation + Plan note Note Date & Type Note Facility Evaluation + Plan note Future Appointments Appointment Date:02/12/2023 09:30:00 AM Scheduled Provider:KASSANDRA HOLLEY DO Location:[facility] ([place], [place]) Appointment Type:PC OV Diagnostic Tests PendingAntinuclear Antibody Screen, Serum 11/19/22 [facility] Evaluation + Plan note Note Date & Type Note Facility Evaluation + Plan note Future Appointments Appointment Date:02/12/2023 09:30:00 AM Scheduled Provider:KASSANDRA HOLLEY DO Location:[facility] ([place], [place]) Appointment Type:PC OV [facility] Evaluation + Plan note Radiology Note Date & Type Note Facility Evaluation + Plan note Future Appointments Appointment Date:02/12/2023 09:30:00 AM Scheduled Provider:KASSANDRA HOLLEY DO Location:[facility] ([place], [place]) Appointment Type:PC OV Future Scheduled TestsXR Chest 2 Views (PA & Lateral) 01/07/23 [facility] Hospital course Narrative Note Date & Type Note Facility Hospital course Narrative No data available for this section [facility] Hospital Discharge instructions Note Date & Type Note Facility Hospital Discharge instructions No data available for this section [facility] Progress note Note Date & Type Note Facility Progress note No data available for this section [facility] Summary Purpose Family History No Family History Records FoundNo Family History Records FoundNo Family History Records Found Advance Directives No Advanced Directives Records FoundNo Advanced Directives Records FoundNo Advanced Directives Records Found Hospital Course Note Attestation signed by Purvi Deshpande MD at 11/13/2018 2:58 PM Patient seen and examined . See my exam & notes regarding the discharge plan on progress note attestation dated Pager: [phone] Internal Medicine: Med TeamDischarge Summary and Transition Note Juancarlos Newton : 1940 ADMIT DATE: 11/09/2018 DISCHARGE DATE: 11/13/2018 PRIMARY CARE PHYSICIAN: No primary care provider on file. VISIT STATUS: Admission CODE STATUS: Full Code DISCHARGE DIAGNOSES: Principal Problem: Fracture tibia/fibula, left, closed, initial encounter Active Problems: Bradycardia Hypokalemia Class 1 obesity in adult Vitamin D insufficiency Essential hypertension Resolved Problems: * No resolved hospital problems. * HOSPITAL COURSE: Patient is a 78yo M PMHx HTN, HLD, arthrit (more content not included)... Additional Source Comments (unrecognized sect ion and content) No Status Records FoundNo Status Records FoundNo Status Records Found INFORMATION SOURCE (unrecogn ized section and content) DATE CREATED AUTHOR AUTHOR'S ORGANIZ ATION 06/28/2020 [facility] DATE CREATED AUTHOR AUTHOR'S ORGANIZ ATION 01/13/2023 [facility] ([place]) Care Team (unrecognized sect ion and content) Care Team Personnel Name: KASSANDRA HOLLEY DO Position: P4 Physician - Primary Care Med Service: Active Provider Member Role: Primary Care Physician Address: Address: [address] [place], [place] [address] Name: BRIT HUGGINS MD Position: P3 Physician - Urologist Med Service: Admitting Member Role: Urologist Address: Address: [address] [place] [address]- Care Team Related Persons Name: NATO NEWTON Name: NATO NEWTON Name: NATO NEWTON Name: MILAGROS NEWTON Address: Home [address] [place] [phone] [place] Care Team Personnel Name: WILLY GARCIA MD Member Role: Pipeline Operator Address: Address: [address] [place], [place] [id number] [place] Name: KASSANDRA HOLLEY DO Position: P4 Physician - Primary Care Member Role: Primary Care Physician Address: Address: [address] [place] [address] Name: BRIT HUGGINS MD Position: P3 Physician - Urologist Member Role: Urologist Address: Address: [address] [place] [address]- Care Team Related Persons Name: NATO NEWTON Name: NATO NEWTON Name: NATO NEWTON Name: MILAGROS NEWTON Address: Home [address] [place] [phone] [place] Care Team Personnel Name: WILLY GARCIA MD Member Role: Pipeline Operator Address: Address: [address] [place] [address] Name: KASSANDRA HOLLEY DO Position: P4 Physician - Primary Care Member Role: Primary Care Physician Address: Address: [address] [place] [address]- Name: BRIT HUGGINS MD Position: P3 Physician - Urologist Member Role: Urologist Address: Address: [address] [place] [address]- Care Team Related Persons Name: NATO NEWTON Name: NATO NEWTON Name: NATO NEWTON Name: MILAGROS NEWTON Address: Home [address] [place], [place] [phone] [place] Patient Care team informatio n (unrecognized section and content) Care Team Personnel Name: WILLY GARCIA MD Member Role: Pipeline Operator Address: Address: [facility] [place] [address] [place] Name: KASSANDRA HOLLEY DO Position: P4 Physician - Primary Care Member Role: Primary Care Physician Address: Address: [address] [facility] [place], [place] [address] Name: BRIT HUGGINS MD Position: P3 Physician - Urologist Member Role: Urologist Address: Address: [address] [facility] [address] [place], [place] [address] Care Team Related Persons Name: NATO NEWTON Name: NATO NEWTON Name: NATO NEWTON Name: MILAGROS NEWTON Address: [address] [phone] FOR RECORDS PERTAINING TO PATIENTS WHO ARE OR HAVE BEEN ENROLLED IN A CHEMICAL DEPENDENCY/SUBSTANCEABUSE PROGRAM, SOME INFORMATION MAY BE OMITTED. This clinical summary was aggregated from multiple sources. Caution should be exercised in using it in the provision of clinical care. This summary normalizes information from multiple sources, and as a consequence, information in this document may materially change the coding, format and clinical context of patient data. In addition, data may be omitted in some cases. CLINICAL DECISIONS SHOULD BE BASED ON THE PRIMARY CLINICAL RECORDS. [employer] provides no warranty or guarantee of the accuracy or completeness of information in this document.
[2023-10-19 18:18] LABS: Lactic Acid 1.1 mmol/L (0.4-1.9)
[2023-10-19 18:28] LABS: BNP,B-Type NATRIURETIC PEPTIDE 10.1 pg/mL (0-100)
--- NOTE | 2023-10-19 18:36 | PCM.HP.STD ---
HPI - General General Date of Admission: 10/19/23 Date of Service: 10/19/23 Chief Complaint: Dyspnea, cough, wheezing. HPI Narrative The patient is an 83 y/o M w/ PMHx: HTN, HLD, BPH, Chronic L Foot Drop, Hx CVA, COPD/asthma, Former tobacco use who presents to the [facility] ED on 10/19/2023 with persistent shortness of breath and notable wheezing persisting for the last 4 to 5 days with increased productive cough that is reportedly white with no fevers however he has been diaphoretic prompting eventual ED evaluation with noted initial 67% oxygenation on room air. He denies any recent significant edema orthopnea. Patient was recently admitted 09/22/2023-09/23/2023 following evaluation and treatment for an acute COPD exacerbation with hypoxia discharged on a 12-day taper of prednisone at that time. Patient and his were ill a couple weeks prior with influenza but since then she has completely resolved and had no recent illness and reports that he did initially improve but then worsened again with this recent episode of dyspnea and wheezing. Workup in the ED included T96.5, heart rate 103, BP 163/101, respiratory rate 28, 100% on a nonrebreather 15 L--> BiPAP, CBC with a BC 11.7, human 16.7, platelet 284 without marked shift, ABG with pH 7.32, bicarb 27.6, O2 saturation 100%, pCO2 53.8, pO2 187 on BiPAP, BMP chloride 109, glucose 178, calcium 10.4 otherwise not marked appearing, lactic acid 1.1, troponin 12, BNP 10.1, chest x-ray with slight opacity in the right lower lobe, blood culture x 2 pending per ED, rapid SARS COVID/influenza/RSV PCR pending. In the ED patient administered Solu-Medrol 125 mg IV x 1, DuoNeb and albuterol therapies, IV Rocephin and IV azithromycin. [facility] Medical History (Updated 10/19/23 @ 18:[address] Macey Arevalo MD) BPH (benign prostatic hyperplasia) COPD (chronic obstructive pulmonary disease) Foot drop, left Glucose intolerance Hyperlipidemia Hypertension Presbycusis Prostate enlargement Stroke Vitamin D deficiency Home Medications clopidogrel 75 mg tablet 75 mg PO DAILY blood thinner 05/23/20 [History Last Taken 10/27/20] ergocalciferol (vitamin D2) 1,250 mcg (50,000 unit) capsule 1,250 mcg PO UD Check with primary doctor 01/24/23 [History Last Taken Unknown] ipratropium 20 mcg-albuterol 100 mcg/actuation mist for inhalation (Combivent Respimat) 2 puff inhalation Q6H COPD 01/24/23 [History Last Taken Unknown] latanoprost 0.005 % eye drops 1 drp EACH EYE QHS Check with primary doctor 01/24/23 [History Last Taken Unknown] losartan 50 mg tablet 50 mg PO DAILY high blood pressure 01/24/23 [History Last Taken Unknown] pravastatin 40 mg tablet 40 mg PO DAILY 01/24/23 [History Last Taken Unknown] tamsulosin 0.4 mg capsule 0.4 mg PO QHS Check with primary doctor 01/24/23 [History Last Taken Unknown] albuterol sulfate 90 mcg/actuation aerosol inhaler 2 puff inhalation Q6H PRN shortness of breath or wheezing #8.5 grams 01/25/23 [Rx Last Taken Unknown] budesonide-formoterol HFA 160 mcg-4.5 mcg/actuation aerosol inhaler (Symbicort) 2 puff inhalation BID #10.2 grams 02/18/23 [Rx Last Taken Unknown] fluticasone propionate 50 mcg/actuation nasal spray,suspension 2 spray intranasal DAILY #16 grams 08/20/23 [Rx Last Taken Unknown] timolol maleate 0.5 % eye drops 1 drp ophthalmic (eye) Q12H 10/19/23 [History Last Taken Unknown] Allergy/AdvReac Type Severity Reaction Status Date / Time Penicillins Allergy Hives Verified 10/19/23 17:44 adhesive tape AdvReac Other Verified 10/19/23 17:44 fentanyl AdvReac PT UNSURE Verified 10/19/23 17:44 OF REACTION morphine AdvReac PT UNSURE Verified 10/19/23 17:44 OF REACTION Family History (Updated 10/19/23 @ 18:[address] Macey Arevalo MD) Mother Breast cancer Father COPD (chronic obstructive pulmonary disease) CVA (cerebral vascular accident) Surgical History (Updated 10/19/23 @ 18:[address] Macey Arevalo MD) H/O Spinal surgery History of open reduction and internal fixation (ORIF) procedure Status post-operative repair of hip fracture Total knee replacement status Social History (Updated 10/19/23 @ 18:[address] Macey Arevalo MD) household members: spouse housing: house Smoking Status: Former smoker Tobacco: How many years used: 30 how long ago did patient quit smoking: Smoked~ 45 years, ~ 1 pack/week until quit. alcohol intake: former substance use type: does not use ROS ROS Narrative Admission Review of Systems: CONSTITUTIONAL: No weight loss, fever, chills, + weakness or fatigue. HEENT: Eyes: No visual loss, blurred vision, double vision or yellow sclerae. Ears, Nose, Throat: No hearing loss, sneezing, congestion, runny nose or sore throat. SKIN: No rash or itching, lesions, wounds. CARDIOVASCULAR: No chest pain, chest pressure or chest discomfort, palpitations, edema, orthopnea, syncopal events. RESPIRATORY: + Dyspnea, cough productive of white sputum, wheezing. No hemoptysis. GASTROINTESTINAL: No anorexia, nausea, vomiting or diarrhea, abdominal pain, melena, BRBPR. GENITOURINARY: No dysuria, frequency, urgency or retention. NEUROLOGICAL: No headache, dizziness, syncope, paralysis, ataxia, numbness or tingling in the extremities, focal weakness, change in bowel or bladder control, seizure. MUSCULOSKELETAL: + muscle, back pain, joint pain or stiffness. HEMATOLOGIC: No anemia. + Easy bleeding/bruising. LYMPHATICS: No enlarged nodes. No history of splenectomy. PSYCHIATRIC: No history of depression or anxiety. ENDOCRINOLOGIC: + Diaphoresis. Cold or heat intolerance. No polyuria or polydipsia. ALLERGIES: No history of asthma, hives, eczema or rhinitis. Vital Signs Vital Signs Vital Signs: 10/19/23 17:41 10/19/23 17:58 10/19/23 17:58 Temperature 96.5 F L Temperature Source Temporal Pulse Rate 103 H 101 H 106 H Respiratory Rate 28 H 34 H 34 H Respiratory Pattern Tachypnea Tachypnea Blood Pressure 163/101 H Blood Pressure Mean 121 Pulse Ox 100 100 Oxygen Delivery Method Non-Rebreather Oxygen Flow Rate (L/min) 15 Fraction of Inspired Oxygen (FIO2) 50 10/19/23 18:09 10/19/23 18:21 10/19/23 17:44 Temperature Temperature Source Pulse Rate 103 H Respiratory Rate 26 H Respiratory Pattern Blood Pressure Blood Pressure Mean Pulse Ox 100 Oxygen Delivery Method Room Air Oxygen Flow Rate (L/min) Fraction of Inspired Oxygen (FIO2) 30 10/19/23 17:45 10/19/23 17:50 10/19/23 17:56 Temperature Temperature Source Pulse Rate 102 H 107 H 100 Respiratory Rate 34 H 32 H 32 H Respiratory Pattern Blood Pressure 167/132 H 155/110 H Blood Pressure Mean 143 118 Pulse Ox 100 100 100 Oxygen Delivery Method Non-Rebreather Oxygen Flow Rate (L/min) Fraction of Inspired Oxygen (FIO2) 10/19/23 18:00 10/19/23 18:05 10/19/23 18:10 Temperature Temperature Source Pulse Rate 105 H 99 101 H Respiratory Rate 25 H 34 H 38 H Respiratory Pattern Blood Pressure 136/99 H Blood Pressure Mean 107 Pulse Ox 100 100 100 Oxygen Delivery Method Bi-pap Oxygen Flow Rate (L/min) Fraction of Inspired Oxygen (FIO2) 10/19/23 18:15 10/19/23 18:20 10/19/23 18:30 Temperature Temperature Source Pulse Rate 98 100 98 Respiratory Rate 31 H 31 H 35 H Respiratory Pattern Blood Pressure 154/90 H Blood Pressure Mean 110 Pulse Ox 99 97 Oxygen Delivery Method Bi-pap Oxygen Flow Rate (L/min) Fraction of Inspired Oxygen (FIO2) Physical Exam Narrative Physical Examination: General: Awake, alert, oriented x 3 and cooperative, seated upright in the ED bed, fatigued, BiPAP in place, notes feeling improved since his initial ED evaluation, respiratory distress is improving. Skin: Normal color, normal turgor, no icterus, no cyanosis except occasional staged ecchymoses. HEENT: AT/NC, EOMI, PERRLA, BiPAP in place, evident mildly dry MM, difficult to assess carotid bruit given referred sounds from BiPAP, no marked JVD. Lungs: Diminished, greater bases, diffuse occasional end expiratory wheeze, still ongoing mildly increased respiratory rate and some accessory muscle usage, respiratory distress is improving with BiPAP now in place, no overt rales or rhonchi. Heart: Tachycardic with regular rhythm; no gallop, rub audible. Abdomen: Soft, NTTP, ND, distant normal BS, no HSM. Extremities: No cyanosis, clubbing, or edema. Neurological: Patient awake, alert, oriented as noted, cognitive function intact; pupils equally reactive to light and accommodation, cranial nerves II-XII grossly normal, moving all 4 extremities, no focal deficits, strength severely globally decreased secondary to acute presentation. Psychiatric: Affect appears fatigued, no acute evidence of depressive or anxiety feelings. Results Lab / Micro Data 10/19/23 17:50 10/19/23 17:50 Labs: Laboratory Results - last 24 hr 10/19/23 17:50: WBC 11.7 H, RBC 5.28, Hgb 16.7 H, Hct 49.4, MCV 93.6, MCH 31.6, MCHC 33.8, RDW Std Deviation 44.5 H, RDW Coeff of Flora 13.2, Plt Count 284, MPV 8.5, Immature Gran % (Auto) 0.500, Neut % (Auto) 59.2, Lymph % (Auto) 23.2, [place] % (Auto) 7.9, Eos % (Auto) 8.6 H, Baso % (Auto) 0.6, Absolute Neuts (auto) 6.9, Absolute Lymphs (auto) 2.71, Nucleated RBC % 0, Sodium 145, Potassium 3.8, Chloride 109 H, Carbon Dioxide 28.0, Anion Gap 8, BUN 15, Creatinine 0.80, Est GFR (MDRD) Af Amer 119, Est GFR (MDRD) Non-Af 98, BUN/Creatinine Ratio 18.9, Glucose 178 H, Lactic Acid 1.1, Calcium 10.4 H, Troponin I High Sens 12, B-Natriuretic Peptide 10.1 ABG Data ABG results: ABG 10/19/23 18:13 Specimen Type ART Sample Site R Radial pH 7.32 L Bicarbonate Actual 27.6 H Total CO2 29 Base Excess 1 O2 Saturation 100 H O2 % 50.0 ABG pCO2 53.8 H ABG pO2 187 H Neville Test Positive Respiration Rate 14 O2 Delivery Device BiPAP Vent Mode Not entered Rhythm Strip Rhythm Strip: Sinus Tach Rate: 105 Ectopy: None Assessment & Plan Assessment/Plan (1) Acute respiratory failure with hypoxia and hypercapnia: PLAN: Plan The patient is an 83 y/o M w/ PMHx: HTN, HLD, BPH, Chronic L Foot Drop, Hx CVA, COPD/asthma, Former tobacco use who presents to the [facility] ED on 10/19/2023 with persistent shortness of breath and notable wheezing persisting for the last 4 to 5 days with increased productive cough that is reportedly white with no fevers however he has been diaphoretic prompting eventual ED evaluation with noted initial 67% oxygenation on room air. #1. Acute Hypoxic and Hypercarbic Respiratory Failure (Notable Hypoxia, requiring 15L NRB-->BIPAP, evidence respiratory distress) on Chronic COPD/asthma exacerbation with chronic appearing RLL opacity (present on several images), lower suspicion for RLL PNA: Will admit to PCU, will continue BiPAP therapy with transition to supplemental nasal cannula oxygen with wean to room air as tolerated, continue ATC duonebs, PRN albuterol, IV methylprednisolone, HOB, IS parameters, will obtain sputum Cx, full respiratory viral panel, procalcitonin, urine antigens, procalcitonin, given opacity present on several images will hold on further abx pending further work-up. Will obtain CT chest once patient clinically improved. Pending finds may consider once resulted to consult Pulmonary if appropriate. #2. Hyperglycemia without diabetic history: Admission glucose 178, possibly stress response, will obtain hemoglobin A1c to be cautious. #3. Hypercalcemia, mild: Admission Ca 10.4, will obtain ICa and repeat CMP in AM. #4. 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 #5. Hypertension: Continue home regimen including losartan, PRN hydralazine. #6. Hyperlipidemia: Will continue patient on statin therapy. #7. Allergic rhinitis: We will continue patient on fluticasone regimen. #8. Former tobacco use: Encourage continued tobacco cessation. #9. BPH: We will continue patient on Flomax regimen. #10. Chronic left foot drop: Continue patient bracing, fall precautions. #11. DVT prophylaxis: Lovenox. #12. CODE status: Patient HCPOA and living will are not in place but his who is present would be his decision-maker if he was unable he notes. Discussed CODE status at length including difference between FULL code, DNR-CCA and DNR-CC status. Following discussions about the differences in these status, requested Full Code status. Advanced Care Planning Face to Face Time: 16 minutes. Charges/Coding Visit Charges Inpatient E&M: 77165 Init Hosp L3 Procedures Hospitalists Procedures: 36251 Advncd Care Plan 30 Min
--- OUTSIDE RECORDS SUMMARY | 2023-10-19 18:55 | XMS RPT_ITS | CCD ---
Author Name Unknown Address [address] [place] [address] Organization [facility] Care Team Providers Care Substation Electrician Supervisor Name Role Phone PROVIDER, UNKNOWN Referring Unavailable No, PCP Primary Care Unavailable Purvi Sanchez Attending Unavailable SELF, SELF Referring Unavailable KASSANDRA HOLLEY DO Primary Care Physician [phone] KASSANDRA HOLLEY DO Attending Unavailable KASSANDRA HOLLEY DO Primary Care Unavailable MCCUISFARZANEH THOMPSON Attending [place] vailable KASSANDRA HLOLEY DO Primary Care Unavailable KASSANDRA HOLLEY DO Attending Unavailable KASSANDRA HOLLEY DO Primary Care Unavailable KASSANDRA HOLLEY DO Attending Unavailable KASSANDRA HOLLEY DO Primary Care Unavailable Allergies Allergy Classification Reported Allergen(s) Allergy Type Date of Onset Reaction(s) Facility (4 sources) atorvastatin; Translations: [atorvastatin] Drug Allergy Swelling (morphologic abnormality) [facility] Medications Current Medications Medication Drug Class(es) Dates Sig (Normalized) Sig (Original) 120 actuat albuterol 0.1 mg/actuat / ipratropium bromide 0.02 mg/actuat inhalation spray (1 source) Anticholinergic, beta2-Adrenergic Agonist Start: 12-19-2022 take 1 dose by inhalation four times daily Combivent Respimat CFC free 20 mcg-100 mcg/inh inhalation aerosol Dose = 1 puff(s), Inhalation, QID, # 1 EA, 2 Refill(s), Pharmacy: [facility], COPD with emphysema, 169, cm, 11/19/22 [...] tab(s), 0 Refill(s), 01/12/23 17:06:00 EDT, Pharmacy: [facility], Acute bronchitis, 168.5, cm, 01/07/23 16:00:00 EDT, Height, 93.8 Start Date: 01/07/23 Stop Date: 01/12/23 Status: Ordered cefdinir 300 mg oral capsule (1 source) Cephalosporin Antibacterial Start: 01-07-2023 End: 01-17-2023 cefdinir 300 mg oral capsule Dose : 300 mg = 1 cap(s), Oral, q12h, X 10 day(s), # 20 cap(s), 0 Refill(s), 01/17/23 17:06:00 EDT, Pharmacy: [facility], 168.5, cm, 01/07/23 16:00:00 EDT, Height, 93.8 Start Date: 01/07/23 Stop Date: 01/17/23 Status: Ordered clopidogrel 75 mg oral tablet (4 sources) P2Y12 Platelet Inhibitor Start: 08-09-2022 Plavix 75 mg oral tablet Dose : 75 mg = 1 tab(s), Oral, qDay, # 90 tab(s), 1 Refill(s), Pharmacy: [facility], Stroke History of stroke, 169.5, cm, [...] 01-09-2023 Patient encounter procedure KASSANDRA HOLLEY DO [facility] Start: 12-09-2022 End: 12-10-2022 ambulatory KASSANDRA HOLLEY DO Facility:[facility] Start: 12-09-2022 End: 12-09-2022 Patient encounter procedure KASSANDRA HOLLEY DO [facility] Start: 11-19-2022 End: 11-20-2022 ambulatory KASSANDRA HOLLEY DO Facility:[facility] Start: 11-19-2022 End: 11-19-2022 Patient encounter procedure KASSANDRA HOLLEY DO [facility] Start: 04-02-2022 End: 04-03-2022 ambulatory FARZANEH CHANEY JOY OPERATOR HELPER-MICROBIOLOGY TECHNICIAN Facility:[facility] Start: 04-02-2022 End: 04-02-2022 Patient encounter procedure FARZANEH CHANEY [facility] Start: 06-28-2020 Patient encounter procedure SELF SELF Facility:[facility] Start: 11-10-2018 Evaluation and management of inpatient UNKNOWN PROVIDER [facility] Procedures Date Procedure Procedure Detail Performing Clinician Appendectomy FARZANEH BELLA ION JOY OPERATOR [facility] Arthroplasty of knee FARZANEH CHANEY JOY OPERATOR [facility] Immunizations Immunization Date Immunization Notes Care Provider Reymundo carrasco 08-09-2022 influenza, high dose seasonal, preservative-free KASSANDRA RAMY DO [facility] 11-27-2021 COVID-19, mRNA, LNP- S, PF, 100 mcg or 50 mcg dose; Translations: [Moderna COVID-19 Vaccine] [facility] 07-25-2021 influenza, high dose seasonal, preservative-free; Translations: [Fluad Quadrivalent PF ] [facility] 03-13-2021 SARS-CoV-2 mRNA (tozinameran) vaccine [facility] 02-20-2021 SARS-CoV-2 mRNA (tozinameran) vaccine [facility] 07-06-2020 influenza, injectabl e, quadrivalent, preservative free; Translations: [Fluarix PF Quadrivalent ] [facility] 11-01-2019 pneumococcal polysaccharide vaccine, 23 valent; Translations: [Pneumovax 23] FARZANEH CHANEY JOY OPERATOR HELPER-MICROBIOLOGY TECHNICIAN [facility] 02-03-2017 pneumococcal conjuga te vaccine, 13 valent FARZANEH CHANEY JOY OPERATOR HELPER-MICROBIOLOGY TECHNICIAN [facility] 03-30-2015 tetanus toxoid, redu ja diphtheria toxoid, and acellular pertussis vaccine, adsorbed FARZANEH CHANEY JOY OPERATOR HELPER-MICROBIOLOGY TECHNICIAN [facility] Payers Date Payer Category Payer Medicare [id number] 2005 Private Health Insurance [id number] 1940 Unknown [id number] 2.16.8 [id number] 1940 Unknown [id number] 2.16.8 [id number] 1940 Unknown [id number] 2.16.8 [id number] 1940 Unknown [id number] 2.16.8 [id number] 1940 Unknown [id number] 2.16.8 [id number] 1940 Unknown [id number] [id number] Medicare Private Health Insurance Social History Date Type Detail Facility Start: 05-10-2020 Tobacco smoking status Ex-smoker (fi nding) [facility] Evaluation + Plan note Laboratory Note Date & Type Note Facility Evaluation + Plan note Future Appointments Appointment Date:06/04/2022 10:00:00 AM Scheduled Provider:KASSANDRA HOLLEY DO Location:[facility] Appointment Type:PC Wellness Medicare Future Scheduled TestsProstate Specific Antigen 08/02/21Thyroid Stimulating Hormone 02/26/22Lipid Profile 02/26/22Vitamin D Level 02/26/22Complete Metabolic Panel 02/26/22 [facility] Evaluation + Plan note Note Date & Type Note Facility Evaluation + Plan note Future Appointments Appointment Date:02/12/2023 09:30:00 AM Scheduled Provider:KASSANDRA HOLLEY DO Location:[facility] Appointment Type:PC OV Diagnostic Tests PendingAntinuclear Antibody Screen, Serum 11/19/22 [facility] Evaluation + Plan note Note Date & Type Note Facility Evaluation + Plan note Future Appointments Appointment Date:02/12/2023 09:30:00 AM Scheduled Provider:KASSANDRA HOLLEY DO Location:[facility] Appointment Type:PC OV [facility] Evaluation + Plan note Radiology Note Date & Type Note Facility Evaluation + Plan note Future Appointments Appointment Date:02/12/2023 09:30:00 AM Scheduled Provider:KASSANDRA HOLLEY DO Location:[facility] Appointment Type:PC OV Future Scheduled TestsXR Chest 2 Views (PA & Lateral) 01/07/23 [facility] Hospital course Narrative Note Date & Type Note Facility Hospital course Narrative No data available for this section [facility] Hospital Discharge instructions Note Date & Type Note Facility Hospital Discharge instructions No data available for this section [facility] Progress note Note Date & Type Note Facility Progress note No data available for this section [facility] Summary Purpose Family History No [...] DATE CREATED AUTHOR AUTHOR'S ORGANIZ ATION 06/28/2020 [facility] DATE CREATED AUTHOR AUTHOR'S ORGANIZ ATION 01/13/2023 [facility]ly [facility] ([place]) Care Team (unrecognized sect ion and content) Care Team Personnel Name: KASSANDRA HOLLEY DO Position: P4 Physician - Primary Care Med Service: Active Provider Member Role: Primary Care Physician Address: Address: [address] [place], [place] [address] Name: BRIT HUGGINS MD Position: P3 Physician - Urologist Med Service: Admitting Member Role: Urologist Address: Address: [address] [place] [address]- Care Team Related Persons Name: NATO NEWTON Name: NATO NEWTON Name: NATO NEWTON Name: MILAGROS NEWTON Address: Home [address] [place] [phone] [place] Care Team Personnel Name: WILLY GARCIA MD Member Role: Hand Etcher Address: Address: [address] [place], [place] [id number] [place] Name: KASSANDRA HOLLEY DO Position: P4 Physician - Primary Care Member Role: Primary Care Physician Address: Address: [address] [place] [address] Name: BRIT HUGGINS MD Position: P3 Physician - Urologist Member Role: Urologist Address: Address: [address] [place] [address]- Care Team Related Persons Name: NATO NEWTON Name: NATO NEWTON Name: NATO NEWTON Name: MILAGROS NEWTON Address: Home [address] [place] [phone] [place] Care Team Personnel Name: WILLY GARCIA MD Member Role: Hand Etcher Address: Address: [address] [place] [address] Name: KASSANDRA HOLLEY DO Position: P4 Physician - Primary Care Member Role: Primary Care Physician Address: Address: [address] [place] [address]- Name: BRIT HUGGINS MD Position: P3 Physician - Urologist Member Role: Urologist Address: Address: [address] [place] [address]- Care Team Related Persons Name: NATO NEWTON Name: NATO NEWTON Name: NATO NEWTON Name: MILAGROS NEWTON Address: Home [address] [place], [place] [phone] [place] Patient Care team informatio n (unrecognized section and content) Care Team Personnel Name: WILLY GARCIA MD Member Role: Hand Etcher Address: Address: [facility] [place] [address] [place] Name: KASSANDRA HOLLEY DO Position: P4 Physician - Primary Care Member Role: Primary Care Physician Address: Address: [address] [facility] [place], [place] [address] Name: BRIT HUGGINS MD Position: P3 Physician - Urologist Member Role: Urologist Address: Address: [address] [facility] [address] [place], [place] [address] Care Team Related Persons Name: NATO NEWTON Name: NATO NEWTON Name: NATO NEWTON Name: MILAGROS NEWTON Address: [address] [phone] FOR RECORDS PERTAINING TO PATIENTS WHO ARE [...] BE BASED ON THE PRIMARY CLINICAL RECORDS. [employer] provides no warranty or guarantee of the accuracy or completeness of information in this document.
[2023-10-19] MEDS: Ceftriaxone 2 GM in 0.9% Normal Saline (50mL MB+) 50 ML IV (19:13)
[2023-10-19 19:14] LABS: Procalcitonin 0.05 ng/mL (0.00-0.09)
[2023-10-19] MEDS: Azithromycin 500 MG in Dextrose 5%-Water (250mL Bag) 250 ML 250 MG IV (20:27)
[2023-10-19] MEDS: 0.9% Normal Saline (1000mL) 1,000 ML 75 ML IV (21:15)
--- NOTE | 2023-10-19 21:16 | NURSING ---
Called pt's at home and updated pt is positive for covid and is on bipap. verbalized understanding.
[2023-10-19] MEDS: Tamsulosin HCl 0.4 MG Capsule 0.400000000000000022 MG PO (22:34)
[2023-10-19] MEDS: Losartan Potassium 50 MG Tablet PO (22:34)
[2023-10-19] MEDS: Pravastatin 40 MG Tablet PO (22:34)
[2023-10-19] MEDS: Clopidogrel Bisulfate 75 MG Tablet PO (22:35)
[2023-10-20] VITALS (13 sets, daily range): BP systolic 130–144; BP diastolic 77–91; PULSE 79–103; RESP 18–24; TEMP 36.5–36.8; O2SAT 50–97; BMI 32.0
--- NOTE | 2023-10-20 02:24 | CPS ---
Patient taken off of BIPAP and 4L NC put on to be transferred to floor.
[2023-10-20 05:26] LABS: Absolute Lymphocyte Count 0.84 X10^3/uL (0.83-4.51); Absolute Neutrophil Count 6.6 X10^3/uL (2.0-7.7); Basophil# 0.01 X10^3/uL; Basophil% 0.1 % (0-1); Hematocrit 44.4 % (40-54); Hemoglobin 15.2 g/dL (13.0-16.5); Lymphocyte # 0.84 X10^3/ul (0.83-4.51); Lymphocyte % 11.1 % (19-41); Mean Corp Hgb Conc 34.2 g/dL (32-36); Mean Corpuscular Hgb 32.1 pg (27.0-32.0); Mean Corpuscular Volume 93.7 fL (80-94); Mean Platelet Vol. 8.2 fl (6.2-12.0); Monocyte# 0.05 X10^3/uL; Monocyte% 0.7 % (0-10); NRBC Flagged by Analyzer 0 % (0-5); Neutrophil % 87.6 % (47-70); Platelet Count 254 K/mm3 (150-450); RBC Distribution Width CV 13.1 % (11.6-14.6); RBC Distribution Width SD 44.6 fl (35.1-43.9); Red Blood Count 4.74 M/mm3 (4.6-6.2); White Blood Count 7.5 K/mm3 (4.4-11.0)
[2023-10-20] MEDS: Ipratropium/Albuterol Sulfate 3 ML AMPUL.NEB INHALATION ×4 (05:44→19:26)
[2023-10-20 05:50] LABS: ALB/GLOB Ratio 1.1 RATIO (0.9-2.4); AST(SGOT) 13 U/L (15-37); Alanine Aminotransfer ALT/SGPT 23 U/L (16-61); Albumin, Serum 3.4 g/dL (3.2-5.0); Alkaline Phosphatase 74 U/L (45-117); Anion Gap 7 (5-15); BUN 15 mg/dL (7-18); Calcium,Total 9.6 mg/dL (8.5-10.1); Chloride 109 mmol/L (98-107); Creatinine, Serum 0.72 mg/dL (0.70-1.30); EST Glomerular Filtration Rate 111 mL/min (>60); Est Glom Filt Rate - Afr Amer 135 mL/min (>60); Estimated Creatinine Clearance 74.61 ml/min; Globulin 3.2 g/dL (2.2-4.2); Glucose 196 mg/dL (74-106); Potassium 3.8 mmol/L (3.5-5.1); Protein, Total 6.6 g/dL (6.4-8.2); Sodium Level 141 mmol/L (136-145)
--- NOTE | 2023-10-20 05:55 | CT_ITS ---
INDICATION: Nodule EXAMINATION: CT CHEST WITHOUT CONTRAST - CT Chest W/O Contrast Injection TECHNIQUE: Helically acquired images were obtained of the chest. A radiation dose optimization technique was used for this scan. IV Contrast dosage and agent: None. COMPARISON: Chest radiograph October 19, 2023 and September 22, 2023. FINDINGS: LUNGS, PLEURA AND LARGE AIRWAYS: Scattered partially calcified bilateral pleural plaque, most prominent in the mid to lower lungs. No airspace consolidation, effusion, or pneumothorax. No suspicious pulmonary nodularity. THYROID: No thyroid lesions. HEART AND PERICARDIUM: Heart size is normal. Nonspecific trace anterior pericardial fluid. Mild multivessel coronary atherosclerosis. VESSELS: Aortic valvular calcifications. Ascending aorta measures 4.2 cm with mild atherosclerosis. No intramural hematoma. Mild thoracic aortic tortuosity. MEDIASTINUM AND MURRAY: No mediastinal or hilar adenopathy. Esophagus is unremarkable. UPPER ABDOMEN: No acute pathology. Small right hepatic and right renal pole cyst, no imaging follow-up required. BONES: No suspicious lytic or blastic abnormality. 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 Bilateral glenohumeral osteoarthritis. CT/Chest without Contrast IMPRESSION: Scattered bilateral calcified pleural plaque as can be seen with asbestos related pleural disease. No suspicious pulmonary parenchymal nodule or consolidative airspace disease. Ascending aortic ectasia to 4.2 cm. Aortic valvular calcifications. Mild thoracic aortic atherosclerosis and tortuosity as can be seen with chronic hypertension. Coronary atherosclerosis. Electronically Signed: Dilan Case MD at 8:04 EST ,
[2023-10-20] MEDS: Losartan Potassium 50 MG Tablet PO (09:49)
[2023-10-20] MEDS: Clopidogrel Bisulfate 75 MG Tablet PO (09:49)
[2023-10-20] MEDS: Enoxaparin 40 MG/0.4 ML Syringe SC (09:49)
[2023-10-20] MEDS: Fluticasone 0.05% 1 SPRAY NASAL.SRY 2 SPRAY NASAL (09:50)
--- NOTE | 2023-10-20 13:00 | CASEMGMT ---
JO ANN CONNER readmission note: Index admission: Admitted 09/22/23 w/acute exac COPD. Discharged home w/ on 09/23/23 on prednisone taper. Pt declined HHC and did not qualify for O2 @ discharge. Pt lives w/ in 2-story home w/2 steps to enter. FFSU. Pt indep w/ADL's @ baseline and uses a walker. Pt has a shower chair @ home and pulse ox. Current admission: Admitted 10/19/23 w/resp failure, COPD exac. +COVID JO ANN CONNER spoke w/pt. Introduced self and role. Pt states he did get the prednisone after discharge and did take it as instructed. Pt states he had an appt with PCP but cx'd it d/t he did not feel well, wanted to see Dr Clark, but couldn't get in w/Dr Clark until December. He states he stayed home and continued to worsen and then brought him to ED. Pulse ox 67% on arrival to ED on RA. Pt states he wishes to discharge home and he really wants home O2 and voices much frustration w/not qualifying for it in the past, stating, If I don't have it when I leave here, I'll just be right back . He stated, I pay for my insurance. I have [employer] and [employer] and I should be able to get oxygen if I want it . JO ANN CONNER informed pt that he was not needing it/did not qualify for it when he discharged from the hospital last admission and d/t decline in condition and increase in SOB from his baseline that he did need to be seen by physician to be evaluated rather than just applying oxygen/treating himself @ home. He states again that he really wants oxygen when he discharges this time. JO ANN CONNER informed him he would be tested again and if he qualifies then this will be set up for him prior to discharge. He states has used [employer] in the past and would like to use them again. He verifies he still has a pulse ox @ home. Discussed HHC w/pt and educated what [facility] nurse could assess/assist with at home and that therapy could work w/him. He states he manages his own medications and does not need a nurse to come see him or check on him and that he gets around okay at home on his own. He declines having any other discharge needs, except wanting home O2. JO ANN CONNER placed call to pt's . states patient wanted O2 in the home and since he has not qualified for it, she ended up purchasing an O2 concentrator from [employer] and it is supposed to be arriving this Friday. JO ANN CONNER educated her that oxygen should be prescribed by a physician and made aware of dangers/safety concerns w/possible CO2 retention w/someone w/COPD and also on dangers of waiting too long to be seen by/evaluated by physician for treatment. She voices appreciation of information. Also discussed HHC w/ and questions answered. She was made aware is declining HHC at this time. voices frustration with this, stating that he is bull-headed and she thinks pt would really benefit from this. She states she would like to talk w/pt about this and will try and encourage him to accept HHC. Also discussed palliative care for COPD and symptom mgnt. She is very interested in referral for this as well and states will discuss this w/pt and will f/u with CM after she talks w/pt and if she has further questions. provided with this JO ANN CONNER phone # if calling back today and Sydney CHERRY CM # if calling back tomorrow. Plan: TBD. Home w/possible HHC and possible palliative referral. wishes to talk w/pt about both of these and to f/u with CM. PT/OT evals pending. Shashi LEE RN, CM
--- NOTE | 2023-10-20 13:59 | PCM.PN.HOSP ---
Subjective Subjective Doing well, no issues overnight feels acute breathing may be a little bit better Objective Data Objective Data Vital Signs: Vital Signs Temp Pulse Resp BP Pulse Ox O2 Del Method O2 Flow Rate 97.7 F L 96 24 H 130/84 H 96 Nasal Cannula 4 10/20/23 10:00 10/20/23 11:19 10/20/23 11:19 10/20/23 10:00 10/20/23 11:19 10/20/23 11:19 10/20/23 11:19 FiO2 50 10/20/23 02:01 Oxygen Flow Rate (L/min) 4 Oxygen Delivery Method Nasal Cannula Weight: 204 lb 5.896 oz Body Mass Index (BMI) 32.0 Intake & Output: Intake and Output for Last 24 Hours 10/19/23 10/20/23 10/21/23 03:59 03:59 03:59 Intake Total 1005 / 1005 1300 / 1300 Output Total 600 / 600 Balance 1005 / 1005 700 / 700 Lab / Micro Data 10/20/23 05:14 10/20/23 05:14 Labs: Laboratory Results - last 24 hr 10/19/23 17:50: WBC 11.7 H, RBC 5.28, Hgb 16.7 H, Hct 49.4, MCV 93.6, MCH 31.6, MCHC 33.8, RDW Std Deviation 44.5 H, RDW Coeff of Flora 13.2, Plt Count 284, MPV 8.5, Immature Gran % (Auto) 0.500, Neut % (Auto) 59.2, Lymph % (Auto) 23.2, [place] % (Auto) 7.9, Eos % (Auto) 8.6 H, Baso % (Auto) 0.6, Absolute Neuts (auto) 6.9, Absolute Lymphs (auto) 2.71, Nucleated RBC % 0, Sodium 145, Potassium 3.8, Chloride 109 H, Carbon Dioxide 28.0, Anion Gap 8, BUN 15, Creatinine 0.80, Est GFR (MDRD) Af Amer 119, Est GFR (MDRD) Non-Af 98, BUN/Creatinine Ratio 18.9, Glucose 178 H, Lactic Acid 1.1, Calcium 10.4 H, Troponin I High Sens 12, B-Natriuretic Peptide 10.1, Procalcitonin 0.05 10/20/23 05:14: WBC 7.5, RBC 4.74, Hgb 15.2, Hct 44.4, MCV 93.7, MCH 32.1 H, MCHC 34.2, RDW Std Deviation 44.6 H, RDW Coeff of Flora 13.1, Plt Count 254, MPV 8.2, Immature Gran % (Auto) 0.500, Neut % (Auto) 87.6 H, Lymph % (Auto) 11.1 L, [place] % (Auto) 0.7, Eos % (Auto) 0.0, Baso % (Auto) 0.1, Absolute Neuts (auto) 6.6, Absolute Lymphs (auto) 0.84, Nucleated RBC % 0, Sodium 141, Potassium 3.8, Chloride 109 H, Carbon Dioxide 25.0, Anion Gap 7, BUN 15, Creatinine 0.72, Estim Creat Clear Calc 74.61, Est GFR (MDRD) Af Amer 135, Est GFR (MDRD) Non-Af 111, BUN/Creatinine Ratio 21.0 H, Glucose 196 H, Calcium 9.6, Total Bilirubin 0.30, AST 13 L, ALT 23, Alkaline Phosphatase 74, Total Protein 6.6, Albumin 3.4, Globulin 3.2, Albumin/Globulin Ratio 1.1 10/20/23 05:37: Ionized Calcium 5.20 Micro: Microbiology 10/20/23 05:30 Urine Catheter - Catheter Streptococcus pneumoniae Antigen (M - Final 10/20/23 05:30 Urine, Clean Catch Legionella Antigen - Final 10/19/23 20:45 Mucosa - Nose Respiratory Panel (PCR) - Final 10/19/23 17:50 Mucosa - Nasopharyngeal SARS-CoV-2, Influenza & RSV (PCR) - Final SARS-CoV-2 (COVID 19) ABG Data ABG results: ABG 10/19/23 18:13 Specimen Type ART Sample Site R Radial pH 7.32 L Bicarbonate Actual 27.6 H Total CO2 29 Base Excess 1 O2 Saturation 100 H O2 % 50.0 ABG pCO2 53.8 H ABG pO2 187 H Neville Test Positive Respiration Rate 14 O2 Delivery Device BiPAP Vent Mode Not entered Radiography Diagnostic Testing: Radiology Impression Chest X-Ray 10/19/23 18:15 IMPRESSION: Bilateral lower lobe atelectasis, otherwise no acute cardiac pulmonary disease. Electronically Signed: Rose Marie Sage MD at 18:41 EST , Chest CT 10/20/23 05:55 IMPRESSION: Scattered bilateral calcified pleural plaque as can be seen with asbestos related pleural disease. No suspicious pulmonary parenchymal nodule or consolidative airspace disease. Ascending aortic ectasia to 4.2 cm. Aortic valvular calcifications. Mild thoracic aortic atherosclerosis and tortuosity as can be seen with chronic hypertension. Coronary atherosclerosis. Electronically Signed: Dilan Case MD at 8:04 EST , Rhythm Strip Rhythm Strip: Sinus Tach Rate: 105 Ectopy: None Physical Exam Narrative General: Alert, Oriented x3, Cooperative, mild respiratory distress HEENT: Atraumatic, PERRLA, EOMI, Normocephalic Oral: Moist Mucosa Neck: Supple, No JVD Lungs: Diminished, normal air movement, No rhonchi, wheeze, No rales, tachypneic with 3 word sentences Cardiovascular: Regular rate, Regular Rhythm, Normal S1, Normal S2, No murmurs Abdomen: Soft, Non Tender, Non-Distended, No Hepato-splenomegaly Extremities: No edema, Capillary Refill Less than 3 Seconds Skin: No rashes, No breakdown Musculoskeletal: No Tenderness to Palpation of Joints or Extremities Neurological: No focal deficit, Motor Exam 5/5 strength throughout, Sensory exam intact to light touch and pain Psych/Mental Status: Normal Affect, Appropriate Assessment & Plan Assessment/Plan (1) Acute respiratory failure with hypoxia and hypercapnia: PLAN: Plan 1. Acute hypoxic and hypercapnic respiratory failure secondary to COVID-19 in the setting of COPD exacerbation ? Will transition Solu-Medrol to Decadron and will start on remdesivir ? CT scan shows chronic appearing plaques and he says that years ago he had multiple spots on a previous CT scan ? Continue with nasal cannula wean as able ? Continue with incentive spirometry 2. HTN/HLD/history of CVA ? Continue with some blood pressure medications ? We will monitor make adjustments as necessary ? Continue with the statin ? Continue with Plavix 3. BPH ? Stable ? Continue with Flomax 4. Chronic left foot drop ? 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 Next of kin: [place] law dictates a PRIORITY LIST for identifying legal decision-maker/legal next of kin in the following order (LNOK): 1st: The patient?s legal guardian, if any 2nd: The patient's spouse (if status is questionable, consult Risk Management) 3rd: The patient?s adult child(angus) (majority, if multiple children) 4th: The patient?s parents 5th: The patient?s adult siblings (majority, if multiple children siblings) Charges/Coding Visit Charges Inpatient E&M: 39977 Subs Hosp L2
[2023-10-20] MEDS: Remdesivir 200 MG in 0.9% Normal Saline (250mL Bag) 210 ML 250 MG IV (14:35)
[2023-10-20 21:08] LABS: Hemoglobin A1c 6.2 % (3.8-5.6)
--- NOTE | 2023-10-20 21:43 | CPS ---
Patient refused PAP therapy for the night.
[2023-10-20] MEDS: Latanoprost 0.005% 1 Bottle 1 DRP EACH EYE (21:46)
[2023-10-20] MEDS: Tamsulosin HCl 0.4 MG Capsule 0.400000000000000022 MG PO (21:46)
[2023-10-21] VITALS (9 sets, daily range): BP systolic 145–155; BP diastolic 72–99; PULSE 64–98; RESP 18–24; TEMP 36.5–37.1; O2SAT 88–98; BMI 32.1
[2023-10-21] MEDS: Ipratropium/Albuterol Sulfate 3 ML AMPUL.NEB INHALATION ×2 (05:06→11:21)
[2023-10-21 07:24] LABS: Hematocrit 41.8 % (40-54); Mean Corp Hgb Conc 33.5 g/dL (32-36); Mean Corpuscular Hgb 31.6 pg (27.0-32.0); Mean Corpuscular Volume 94.4 fL (80-94); Mean Platelet Vol. 8.6 fl (6.2-12.0); Platelet Count 231 K/mm3 (150-450); RBC Distribution Width CV 13.4 % (11.6-14.6); RBC Distribution Width SD 46.6 fl (35.1-43.9); Red Blood Count 4.43 M/mm3 (4.6-6.2); White Blood Count 12.8 K/mm3 (4.4-11.0)
[2023-10-21 08:15] LABS: ALB/GLOB Ratio 1.1 RATIO (0.9-2.4); AST(SGOT) 14 U/L (15-37); Alanine Aminotransfer ALT/SGPT 23 U/L (16-61); Albumin, Serum 3.1 g/dL (3.2-5.0); Alkaline Phosphatase 67 U/L (45-117); Anion Gap 6 (5-15); BUN 21 mg/dL (7-18); BUN/Creat Ratio 30.7 RATIO (10-20); Chloride 111 mmol/L (98-107); Creatinine, Serum 0.68 mg/dL (0.70-1.30); EST Glomerular Filtration Rate 117 mL/min (>60); Est Glom Filt Rate - Afr Amer 142 mL/min (>60); Estimated Creatinine Clearance 74.68 ml/min; Globulin 2.8 g/dL (2.2-4.2); Glucose 140 mg/dL (74-106); Potassium 3.6 mmol/L (3.5-5.1); Protein, Total 5.9 g/dL (6.4-8.2); Sodium Level 143 mmol/L (136-145)
[2023-10-21] MEDS: 0.9% Saline Lock 10 ML Syringe IV (10:13)
[2023-10-21] MEDS: Furosemide 20 MG/2 ML VIAL IV (10:14)
[2023-10-21] MEDS: Losartan Potassium 50 MG Tablet PO (10:14)
[2023-10-21] MEDS: Clopidogrel Bisulfate 75 MG Tablet PO (10:14)
[2023-10-21] MEDS: dexAMETHasone 4 MG Tablet 6 MG PO (10:14)
[2023-10-21] MEDS: Remdesivir 100 MG in 0.9% Normal Saline (250mL Bag) 230 ML 250 MG IV (10:14)
[2023-10-21] MEDS: Fluticasone 0.05% 1 SPRAY NASAL.SRY 2 SPRAY NASAL (10:14)
[2023-10-21] MEDS: Timolol 0.5% 5ML OPTH.BTL 1 DRP EACH EYE (10:15)
[2023-10-21] MEDS: Enoxaparin 40 MG/0.4 ML Syringe SC (10:15)
--- NOTE | 2023-10-21 12:45 | PCM.DC ---
Discharge Instructions Diet Discharge Diet: Low fat / Low cholesterol Activity Discharge Activity: Return to Normal Activity Dressing / Incision Call your doctor if you observe: Fever of 101 or Higher, Shortness of breath, Dizziness, Fainting spells, Swelling in the ankles, Chest pain and Increased palpitations (irregular heartbeat) Follow Up Care Test Results: Test results from this visit will be discussed in further detail at your follow-up appointment, if applicable. Discharge Plan Admission Admit Date/Time: 10/19/23 18:37 Attending Provider: Vadim Blue Primary Care Provider: Jessica Santiago Consulting Providers: Macey Arevalo; Jyoti Crane Discharge Orders/Prescriptions Prescriptions: New dexamethasone 2 mg tablet 6 mg PO DAILY 8 Days Qty: 24 0RF furosemide [Lasix] 20 mg tablet 20 mg PO DAILY Qty: 7 0RF Continued budesonide-formoterol [Symbicort] 160-4.5 mcg/actuation HFA aerosol inhaler 2 puff inhalation BID Qty: 10.2 6RF fluticasone propionate 50 mcg/actuation spray,suspension 2 spray intranasal DAILY Qty: 16 3RF clopidogrel 75 MG tablet 75 mg PO DAILY losartan 50 mg tablet 50 mg PO DAILY Patient Comments: TAKE 1 TABLET BY MOUTH DAILY latanoprost 0.005 % drops 1 drp EACH EYE QHS Patient Comments: Instill 1 drop into both eyes once a day pravastatin 40 mg tablet 40 mg PO DAILY Patient Comments: TAKE 1 TABLET BY MOUTH EVERY DAY tamsulosin 0.4 mg capsule 0.4 mg PO QHS Patient Comments: TAKE 1 CAPSULE BY MOUTH AT BEDTIME ergocalciferol (vitamin D2) 1,250 mcg (50,000 unit) capsule 1,250 mcg PO UD Patient Comments: TAKE 1 CAPSULE BY MOUTH twice a week Rx Instructions: 2x/week takes on and saturdays Combivent Respimat 20-100 mcg/actuation Mist 2 puff INHALATION Q6H Patient Comments: 25 mcg/100 mcg in medicatio bag albuterol sulfate 90 mcg/actuation HFA aerosol inhaler 2 puff inhalation Q6H PRN (Reason: shortness of breath or wheezing) Qty: 8.5 0RF timolol maleate 0.5 % drops 1 drp ophthalmic (eye) Q12H Patient Comments: Instill 1 drop in both eyes twice a day Referrals / Follow Up: Jessica Santiago DO [Primary Care Provider] - In 1 Week Disposition Disposition (needs filled in before D/C Order can be placed): Home Health Service
--- NOTE | 2023-10-21 12:54 | DS.PCM_ITS ---
Providers Date of Admission: 10/19/23 Primary Care Physician: Dr. Jessica Santiago DO Reason For Visit: RESPIRATORY FAILURE, COPD EXACERBATION Diagnosis Discharge Diagnosis (1) Acute respiratory failure with hypoxia and hypercapnia: Status: Acute Code(s): J96.01 - Acute respiratory failure with hypoxia; J96.02 - Acute respiratory failure with hypercapnia Medications at Discharge Home Medications clopidogrel 75 mg tablet 75 mg PO DAILY blood thinner 05/23/20 ergocalciferol (vitamin D2) 1,250 mcg (50,000 unit) capsule 1,250 mcg PO UD Check with primary doctor 01/24/23 ipratropium 20 mcg-albuterol 100 mcg/actuation mist for inhalation (Combivent Respimat) 2 puff inhalation Q6H COPD 01/24/23 latanoprost 0.005 % eye drops 1 drp EACH EYE QHS Check with primary doctor 01/24/23 losartan 50 mg tablet 50 mg PO DAILY high blood pressure 01/24/23 pravastatin 40 mg tablet 40 mg PO DAILY 01/24/23 tamsulosin 0.4 mg capsule 0.4 mg PO QHS Check with primary doctor 01/24/23 albuterol sulfate 90 mcg/actuation aerosol inhaler 2 puff inhalation Q6H PRN shortness of breath or wheezing #8.5 grams 01/25/23 budesonide-formoterol HFA 160 mcg-4.5 mcg/actuation aerosol inhaler (Symbicort) 2 puff inhalation BID #10.2 grams 02/18/23 fluticasone propionate 50 mcg/actuation nasal spray,suspension 2 spray intranasal DAILY #16 grams 08/20/23 timolol maleate 0.5 % eye drops 1 drp ophthalmic (eye) Q12H 10/19/23 dexamethasone 2 mg tablet 6 mg (3 x 2 mg) PO DAILY 8 days #24 tabs 10/21/23 furosemide 20 mg tablet (Lasix) 20 mg PO DAILY #7 tabs 10/21/23 Hospital Course Operations None Procedures None Summary of Care Provided Minutes Spent on Discharge: 35 Hospital Course: Per HPI: The patient is an 83 y/o M w/ PMHx: HTN, HLD, BPH, Chronic L Foot Drop, Hx CVA, COPD/asthma, Former tobacco use who presents to [facility] ED on 10/19/2023 with persistent shortness of breath and notable wheezing persisting for the last 4 to 5 days with increased productive cough that is reportedly white with no fevers however he has been diaphoretic prompting eventual ED evaluation with noted initial 67% oxygenation on room air. He denies any recent significant edema orthopnea. Patient was recently admitted 09/22/2023-09/23/2023 following evaluation and treatment for an acute COPD exacerbation with hypoxia discharged on a 12-day taper of prednisone at that time. Patient and his were ill a couple weeks prior with influenza but since then she has completely resolved and had no recent illness and reports that he did initially improve but then worsened again with this recent episode of dyspnea and wheezing. Workup in the ED included T96.5, heart rate 103, BP 163/101, respiratory rate 28, 100% on a nonrebreather 15 L--> BiPAP, CBC with a BC 11.7, human 16.7, platelet 284 without marked shift, ABG with pH 7.32, bicarb 27.6, O2 saturation 100%, pCO2 53.8, pO2 187 on BiPAP, BMP chloride 109, glucose 178, calcium 10.4 otherwise not marked appearing, lactic acid 1.1, troponin 12, BNP 10.1, chest x-ray with slight opacity in the right lower lobe, blood culture x 2 pending per ED, rapid SARS COVID/influenza/RSV PCR pending. In the ED patient administered Solu- Medrol 125 mg IV x 1, DuoNeb and albuterol therapies, IV Rocephin and IV azithromycin. Hospital Course: 1. Acute hypoxic and hypercapnic respiratory failure secondary to COVID-19 precipitating COPD exacerbation?83-year-old male with history of COPD presented to the hospital with increasing shortness of breath and hypoxia down to 67% on room air. He did come back positive for COVID-19. His Solu-Medrol was changed to Decadron and he was given 2 doses of remdesivir. Initially was on 6 L nasal cannula and with therapy was able to come down to room air today at rest and then needed 2 L nasal cannula with ambulation. He did also receive a dose of Lasix today which appears to have helped given his COVID diagnosis. I discussed with him the plan for possible discharge today he expressed understanding of the risk and benefits of going home, and he would rather go home today on oxygen and then wait another day. Will plan for another 8 days of p.o. Decadron and I will also place him on 7 days of Lasix 20 mg p.o. daily to help with any volume excess. I discussed with him reasons to come back to the hospital not limited to increasing shortness of breath and chest pain. He will need 2 L with ambulation and he will need portable oxygen as he is ambulatory both at home and in the community. 2. Hypertension, hyperlipidemia, history of CVA, BPH, chronic left foot drop are all chronic medical conditions which complicate his care. His home medications were continued where appropriate Physical Exam Narrative General: Alert, Oriented x3, Cooperative, no respiratory distress HEENT: Atraumatic, PERRLA, EOMI, Normocephalic, hard of hearing Oral: Moist Mucosa Neck: Supple, No JVD Lungs: Diminished, normal air movement, No rhonchi, wheeze, No rales Cardiovascular: Regular rate, Regular Rhythm, Normal S1, Normal S2, No murmurs Abdomen: Soft, Non Tender, Non-Distended, No Hepato-splenomegaly Extremities: No edema, Capillary Refill Less than 3 Seconds Skin: No rashes, No breakdown Musculoskeletal: No Tenderness to Palpation of Joints or Extremities Neurological: No focal deficit, Motor Exam 5/5 strength throughout, Sensory exam intact to light touch and pain Psych/Mental Status: Normal Affect, Appropriate Weight / BMI Weight Weight: 204 lb 12.8 oz Body Mass Index (BMI) 32.1 ABG / Lab / Microbiology Data 10/21/23 06:53 10/21/23 06:53 Laboratory: Laboratory Results - last 24 hr 10/20/23 05:14: Hemoglobin A1c 6.2 H 10/21/23 06:53: WBC 12.8 H, RBC 4.43 L, Hgb 14.0, Hct 41.8, MCV 94.4 H, MCH 31.6, MCHC 33.5, RDW Std Deviation 46.6 H, RDW Coeff of Flora 13.4, Plt Count 231, MPV 8.6, Sodium 143, Potassium 3.6, Chloride 111 H, Carbon Dioxide 26.0, Anion Gap 6, BUN 21 H, Creatinine 0.68 L, Estim Creat Clear Calc 74.68, Est GFR (MDRD) Af Amer 142, Est GFR (MDRD) Non-Af 117, BUN/Creatinine Ratio 30.7 H, Glucose 140 H, Calcium 10.0, Total Bilirubin 0.30, AST 14 L, ALT 23, Alkaline Phosphatase 67, Total Protein 5.9 L, Albumin 3.1 L, Globulin 2.8, Albumin/Globulin Ratio 1.1 Microbiology: Microbiology 10/20/23 05:30 Urine Catheter - Catheter Streptococcus pneumoniae Antigen (M - Final 10/20/23 05:30 Urine, Clean Catch Legionella Antigen - Final 10/19/23 20:45 Mucosa - Nose Respiratory Panel (PCR) - Final 10/19/23 17:50 Mucosa - Nasopharyngeal SARS-CoV-2, Influenza & RSV (PCR) - Final SARS-CoV-2 (COVID 19) D/C Instructions Discharge Diet: Low fat / Low cholesterol Call your doctor if you observe: Fever of 101 or Higher, Shortness of breath, Dizziness, Fainting spells, Swelling in the ankles, Chest pain and Increased palpitations (irregular heartbeat) Meaningful Use Info Meaningful Use Diagnoses (Choose all that apply): None applicable Discharge Plan Admission Admit Date/Time: 10/19/23 18:37 Attending Provider: Vadim Bleu Primary Care Provider: Jessica Santiago Consulting Providers: Macey Arevalo; Jyoti Crane Discharge Orders/Prescriptions Prescriptions: New dexamethasone 2 mg tablet 6 mg PO DAILY 8 Days Qty: 24 0RF furosemide [Lasix] 20 mg tablet 20 mg PO DAILY Qty: 7 0RF Continued budesonide-formoterol [Symbicort] 160-4.5 mcg/actuation HFA aerosol inhaler 2 puff inhalation BID Qty: 10.2 6RF fluticasone propionate 50 mcg/actuation spray,suspension 2 spray intranasal DAILY Qty: 16 3RF clopidogrel 75 MG tablet 75 mg PO DAILY losartan 50 mg tablet 50 mg PO DAILY Patient Comments: TAKE 1 TABLET BY MOUTH DAILY latanoprost 0.005 % drops 1 drp EACH EYE QHS Patient Comments: Instill 1 drop into both eyes once a day pravastatin 40 mg tablet 40 mg PO DAILY Patient Comments: TAKE 1 TABLET BY MOUTH EVERY DAY tamsulosin 0.4 mg capsule 0.4 mg PO QHS Patient Comments: TAKE 1 CAPSULE BY MOUTH AT BEDTIME ergocalciferol (vitamin D2) 1,250 mcg (50,000 unit) capsule 1,250 mcg PO UD Patient Comments: TAKE 1 CAPSULE BY MOUTH twice a week Rx Instructions: 2x/week takes on and saturdays Combivent Respimat 20-100 mcg/actuation Mist 2 puff INHALATION Q6H Patient Comments: 25 mcg/100 mcg in medicatio bag albuterol sulfate 90 mcg/actuation HFA aerosol inhaler 2 puff inhalation Q6H PRN (Reason: shortness of breath or wheezing) Qty: 8.5 0RF timolol maleate 0.5 % drops 1 drp ophthalmic (eye) Q12H Patient Comments: Instill 1 drop in both eyes twice a day Referrals / Follow Up: Jessica Santiago DO [Primary Care Provider] - In 1 Week Disposition Disposition (needs filled in before D/C Order can be placed): Home Health Service Charges/Coding Visit Charges Inpatient E&M: 80058 Disch Hosp >30min
--- NOTE | 2023-10-21 13:05 | CASEMGMT ---
Addendum entered by Sydney Riojas 10/21/23 15:07: Updated charge nurse, pt may dc from a CM standpoint once oxygen delivered. Addendum entered by Sydney Riojas 10/21/23 15:03: [place] [facility] [place] [facility] at this [place]. Original Note: TC to pt as nurse states pt wanted to speak to JO ANN CONNER. Pt states she feels pt needs HHC. States she made him aware but he is not agreeable. She is wondering if she can make the decision. Discussed with her that if the pt is alert and oriented he has to be agreeable to HHC. She would like [facility] if he is. She is aware pt will be dc'd on home oxygen and reviewed homegoing instructions with her regarding oxygen. She states pt has a pox. RN CM into pt room, discussed HHC with pt. He states he would like to go home and discuss with his and see how he does at home first. Discussed that he would notify his PCP if he would want HHC and provided pt with a list of HHC providers including quality and resource use data and consistent with the patient?s preferred geographic region, medical needs, and insurance network were provided from the [facility] Guide. Pt states he does his own meds, checks his bp and pox. States he is I in ADL's and he does not feel he needs HHC. States he has the needed DME. Pt also declines Palliative Care. Reviewed homegoing oxygen instructions with pt, he verbalizes understanding. Pt is aware he only needs 2L with exertion. Pt denies any further homegoing needs.
--- NOTE | 2023-10-21 16:29 | PHA.DC.MR.R ---
Pharmacy [facility] Med Reconciliation Pharmacy Service has performed discharge medication reconciliation for this patient. Attempted to call patient to family court counsellor due to COVID precautions, patient did not answer. The patient's discharge medication list was reviewed for discrepancies and discrepancies were resolved. Medications at Discharge Home Medications clopidogrel 75 mg tablet 75 mg PO DAILY blood thinner 05/23/20 ergocalciferol (vitamin D2) 1,250 mcg (50,000 unit) capsule 1,250 mcg PO UD Check with primary doctor 01/24/23 ipratropium 20 mcg-albuterol 100 mcg/actuation mist for inhalation (Combivent Respimat) 2 puff inhalation Q6H COPD 01/24/23 latanoprost 0.005 % eye drops 1 drp EACH EYE QHS Check with primary doctor 01/24/23 losartan 50 mg tablet 50 mg PO DAILY high blood pressure 01/24/23 pravastatin 40 mg tablet 40 mg PO DAILY 01/24/23 tamsulosin 0.4 mg capsule 0.4 mg PO QHS Check with primary doctor 01/24/23 albuterol sulfate 90 mcg/actuation aerosol inhaler 2 puff inhalation Q6H PRN shortness of breath or wheezing #8.5 grams 01/25/23 budesonide-formoterol HFA 160 mcg-4.5 mcg/actuation aerosol inhaler (Symbicort) 2 puff inhalation BID #10.2 grams 02/18/23 fluticasone propionate 50 mcg/actuation nasal spray,suspension 2 spray intranasal DAILY #16 grams 08/20/23 timolol maleate 0.5 % eye drops 1 drp ophthalmic (eye) Q12H 10/19/23 dexamethasone 2 mg tablet 6 mg (3 x 2 mg) PO DAILY 8 days #24 tabs 10/21/23 furosemide 20 mg tablet (Lasix) 20 mg PO DAILY #7 tabs 10/21/23
== END 2023-10-21 18:20 | disposition home health service (06) | DRG 177 ==
LOC: ED 18:46 → MS2 18:53
PROVIDERS: Admitting Provider Family Medicine; Emergency Provider Emergency Medicine; PCP Family Medicine; Visit Provider Family Medicine
DX: U07.1 COVID-19 (principal); J96.01 Acute respiratory failure with hypoxia; J96.02 Acute respiratory failure with hypercapnia; J44.1 Chronic obstructive pulmonary disease with (acute) exacerbation; I10 Essential (primary) hypertension; E83.52 Hypercalcemia; E78.5 Hyperlipidemia, unspecified; M21.372 Foot drop, left foot; N40.0 Benign prostatic hyperplasia without lower urinary tract symptoms; Z79.02 Long term (current) use of antithrombotics/antiplatelets; Z79.51 Long term (current) use of inhaled steroids; Z79.899 Other long term (current) drug therapy; Z86.73 Personal history of transient ischemic attack (TIA), and cerebral infarction without residual deficits; Z87.891 Personal history of nicotine dependence
CPT/HCPCS: 36415; 36600; 71045; 71250; 80048; 80053; 82330; 82803; 83036; 83605; 83880; 84145; 84484; 85025; 85027; 87040; 87449; 87631; 87633; 93005; 94002; 94640; 94668; 97110; 97162; 97166; 99285; J7030; J7050; A4216; J0248; J1940

== ENCOUNTER 2023-12-12 11:35 | Emergency (ER) | payer MEDICARE, OTHER, SELFPAY ==
[2023-12-12 11:35] VITALS: BP 151/89; PULSE 73; RESP 16; TEMP 36.4; O2SAT 94
--- NOTE | 2023-12-12 12:43 | CT_ITS ---
HISTORY: parotid gland swelling, worsening left jaw swelling/pain. TECHNIQUE: Helically acquired images were obtained of the neck after the intravenous administration of 100 mL Isovue 370. A radiation dose optimization technique was used for this scan. 357 images. COMPARISON: CTA 05/01/2020. FINDINGS: NASOPHARYNX: Unremarkable. SUPRAHYOID NECK: Unremarkable oropharynx, oral cavity, parapharyngeal space, and retropharyngeal space. INFRAHYOID NECK: Unremarkable larynx, hypopharynx, and supraglottis. THYROID: No focal lesions. SALIVARY GLANDS: Enlargement and mild hyperenhancement of the left parotid gland and adjacent masseter muscle with surrounding subcutaneous stranding as well as thickening of the platysma. No rim-enhancing fluid collection. Symmetric submandibular glands. LYMPH NODES: Scattered small lymph nodes without pathologic enlargement. VASCULAR STRUCTURES: Atherosclerosis present. ORBITS: Bilateral lens resections. No fluid collection. PARANASAL SINUSES: Mild left maxillary and sphenoid sinus mucosal thickening. Sinonasal postoperative change. MASTOID AIR CELLS: Well aerated bilaterally. OSSEOUS STRUCTURES: Degenerative changes of the cervical spine. LUNG APICES: Clear with mild hyperinflation. CT/Soft Tissue Neck WITH Contrast IMPRESSION: Moderate left facial edema involving the left parotid gland, masseter muscle, and overlying soft tissues concerning for parotiditis and facial cellulitis without abscess. Trauma could have a similar appearance. Consider follow-up to exclude underlying lesion. Electronically Signed: Raegan Watson MD at 15:26 EST ,
--- NOTE | 2023-12-12 13:01 | EX.ED.DYSGE1 ---
HPI <BARTOLOME Villar - Last Filed: 12/12/23 18:53> History of Present Illness Chief Complaint: Other, Pain/Inj Narrative Narrative: Patient presenting today due to a painful mass to his left upper jaw that started on Friday and has gotten progressively larger since. He reports that he is having a difficult time opening his jaw all the way due to the pain and it hurts worse with eating. He reports that his hearing on the left side has become muffled. He denies any fevers or chills. PFSH <BARTOLOME Villar - Last Filed: 12/12/23 18:53> [facility] Medical History BPH (benign prostatic hyperplasia) COPD (chronic obstructive pulmonary disease) Foot drop, left Glucose intolerance Hyperlipidemia Hypertension Presbycusis Prostate enlargement Stroke Vitamin D deficiency Home Medications clopidogrel 75 mg tablet 75 mg PO DAILY blood thinner 05/23/20 [History Last Taken 10/27/20] ergocalciferol (vitamin D2) 1,250 mcg (50,000 unit) capsule 1,250 mcg PO UD Check with primary doctor 01/24/23 [History Last Taken Unknown] ipratropium 20 mcg-albuterol 100 mcg/actuation mist for inhalation (Combivent Respimat) 2 puff inhalation Q6H COPD 01/24/23 [History Last Taken Unknown] latanoprost 0.005 % eye drops 1 drp EACH EYE QHS Check with primary doctor 01/24/23 [History Last Taken Unknown] losartan 50 mg tablet 50 mg PO DAILY high blood pressure 01/24/23 [History Last Taken Unknown] pravastatin 40 mg tablet 40 mg PO DAILY 01/24/23 [History Last Taken Unknown] tamsulosin 0.4 mg capsule 0.4 mg PO QHS Check with primary doctor 01/24/23 [History Last Taken Unknown] albuterol sulfate 90 mcg/actuation aerosol inhaler 2 puff inhalation Q6H PRN shortness of breath or wheezing #8.5 grams 01/25/23 [Rx Last Taken Unknown] budesonide-formoterol HFA 160 mcg-4.5 mcg/actuation aerosol inhaler (Symbicort) 2 puff inhalation BID #10.2 grams 02/18/23 [Rx Last Taken Unknown] fluticasone propionate 50 mcg/actuation nasal spray,suspension 2 spray intranasal DAILY #16 grams 08/20/23 [Rx Last Taken Unknown] timolol maleate 0.5 % eye drops 1 drp ophthalmic (eye) Q12H 10/19/23 [History Last Taken Unknown] dexamethasone 2 mg tablet 6 mg (3 x 2 mg) PO DAILY 8 days #24 tabs 10/21/23 [Rx Last Taken Unknown] furosemide 20 mg tablet (Lasix) 20 mg PO DAILY #7 tabs 10/21/23 [Rx Last Taken Unknown] clindamycin HCl 150 mg capsule 450 mg (3 x 150 mg) PO TID 10 days #90 caps 12/12/23 [Rx Last Taken Unknown] Allergy/AdvReac Type Severity Reaction Status Date / Time Penicillins Allergy Hives Verified 12/12/23 11:37 adhesive tape AdvReac Other Verified 12/12/23 11:37 fentanyl AdvReac PT UNSURE Verified 12/12/23 11:37 OF REACTION morphine AdvReac PT UNSURE Verified 12/12/23 11:37 OF REACTION Family History Mother Breast cancer Father COPD (chronic obstructive pulmonary disease) CVA (cerebral vascular accident) Surgical History H/O Spinal surgery History of open reduction and internal fixation (ORIF) procedure Status post-operative repair of hip fracture Total knee replacement status Social History household members: spouse housing: house Smoking Status: Former smoker Tobacco: How many years used: 30 how long ago did patient quit smoking: Smoked~ 45 years, ~ 1 pack/week until quit. alcohol intake: former substance use type: does not use ROS <BARTOLOME Villar - Last Filed: 12/12/23 18:53> ROS ED Constitutional Constitutional ED: Denies chills or fever(s) Cardiovascular Cardiovascular: Denies chest pain Respiratory/Chest Respiratory/Chest: Denies cough or dyspnea Gastrointestinal Gastrointestinal: Denies abdominal pain, nausea or vomiting Musculoskeletal Musculoskeletal: Denies arthralgias or myalgias Integumentary Denies rash Neurologic Neurologic: Denies weakness EXAM <BARTOLOME Villar - Last Filed: 12/12/23 18:53> Physical Exam Const Vital Signs: 12/12/23 11:35 12/12/23 12:25 12/12/23 14:00 Temperature 97.6 F L Temperature Source Temporal Pulse Rate 73 65 Respiratory Rate 16 20 H Respiratory Effort Normal Non-Labored Respiratory Pattern Normal Blood Pressure 151/89 H Blood Pressure Mean 109 Pulse Ox 94 95 Oxygen Delivery Method Room Air Room Air Oxygen Flow Rate (L/min) 12/12/23 16:00 12/12/23 16:08 12/12/23 16:22 Temperature 98.2 F Temperature Source Pulse Rate 75 75 78 Respiratory Rate 26 H 26 H 20 H Respiratory Effort Respiratory Pattern Blood Pressure 170/89 H 170/89 H 150/87 H Blood Pressure Mean 116 116 108 Pulse Ox 94 94 98 Oxygen Delivery Method Nasal Cannula Nasal Cannula Oxygen Flow Rate (L/min) 3 2 12/12/23 16:17 12/12/23 16:17 Temperature Temperature Source Pulse Rate 89 Respiratory Rate 24 H Respiratory Effort Respiratory Pattern Blood Pressure Blood Pressure Mean Pulse Ox 97 Oxygen Delivery Method Nasal Cannula Oxygen Flow Rate (L/min) 2.5 Positive well nourished, well developed and no apparent distress General Appearance ED: well developed HEENT Reports normocephalic, head/scalp atraumatic and TM's clear HEENT Narrative: Left parotid gland swelling and firmness, pain to palpation. Tympanic Membrane ED: Yes TM's clear left Mouth ED: Yes moist mucous membranes normal Eyes PERRL and EOMs intact bilaterally Neck full ROM and supple Chest Wall inspection of chest normal Resp normal respiratory effort and clear to auscultation bilaterally Cardio regular rate and regular rhythm GI soft to palpation, non-tender, non-distended and no masses Back/Spine normal ROM and normal to inspection Extremity normal to inspection and full ROM Neuro oriented x3, CN's II-XII intact bilaterally, moves all extremities, no focal motor deficits and no sensory deficits noted Sensorium / Orientation: awake and alert Psych mental status grossly normal and thought process normal Skin no rashes or lesions noted and no wounds <Dr. Dariusz Gaines DO - Last Filed: 12/12/23 21:41> Physical Exam Const Vital Signs: 12/12/23 11:35 12/12/23 12:25 12/12/23 14:00 Temperature 97.6 F L Temperature Source Temporal Pulse Rate 73 65 Respiratory Rate 16 20 H Respiratory Effort Normal Non-Labored Respiratory Pattern Normal Blood Pressure 151/89 H Blood Pressure Mean 109 Pulse Ox 94 95 Oxygen Delivery Method Room Air Room Air Oxygen Flow Rate (L/min) 12/12/23 16:00 12/12/23 16:08 12/12/23 16:22 Temperature 98.2 F Temperature Source Pulse Rate 75 75 78 Respiratory Rate 26 H 26 H 20 H Respiratory Effort Respiratory Pattern Blood Pressure 170/89 H 170/89 H 150/87 H Blood Pressure Mean 116 116 108 Pulse Ox 94 94 98 Oxygen Delivery Method Nasal Cannula Nasal Cannula Oxygen Flow Rate (L/min) 3 2 12/12/23 16:17 12/12/23 16:17 Temperature Temperature Source Pulse Rate 89 Respiratory Rate 24 H Respiratory Effort Respiratory Pattern Blood Pressure Blood Pressure Mean Pulse Ox 97 Oxygen Delivery Method Nasal Cannula Oxygen Flow Rate (L/min) 2.5 MDM <BARTOLOME Villar - Last Filed: 12/12/23 18:53> [facility] Narrative Medical decision making narrative: Patient presenting due to a painful firm mass to the area of his parotid gland on the left side that he has had since Friday. It has gotten progressively larger. Labs will be obtained as well as a CT scan soft tissue neck with contrast. Labs overall are unremarkable, CT scan shows left-sided parotiditis and facial cellulitis without abscess. I did speak with Dr. Paz with ENT who recommends placing patient on antibiotics, sour candies, massages, and having him follow-up in the office. He will be started on clindamycin due to penicillin allergy. While patient was waiting to be discharged he did require supplemental O2, he does use O2 at home as needed. I did give him breathing treatments which improved his symptoms. He will be discharged home in stable condition and is comfortable with plan. Lab Data Attestation: I reviewed the patient's lab results. Labs: Laboratory Results - last 24 hr 12/12/23 14:10 WBC 10.3 RBC 4.59 L Hgb 14.2 Hct 42.8 MCV 93.2 MCH 30.9 MCHC 33.2 RDW Std Deviation 47.8 H RDW Coeff of Flora 14.0 Plt Count 207 MPV 8.6 Immature Gran % (Auto) 0.500 Neut % (Auto) 68.0 Lymph % (Auto) 16.7 L [place] % (Auto) 7.8 Eos % (Auto) 6.3 H Baso % (Auto) 0.7 Absolute Neuts (auto) 7.0 Absolute Lymphs (auto) 1.73 Nucleated RBC % 0 Sodium 142 Potassium 4.2 Chloride 109 H Carbon Dioxide 28.0 Anion Gap 5 BUN 10 Creatinine 0.59 L Est GFR (MDRD) Af Amer 167 Est GFR (MDRD) Non-Af 138 BUN/Creatinine Ratio 16.9 Glucose 120 H Calcium 9.5 Radiography Diagnostic Testing: Clinical Impression(s) from Imaging Studies Soft Tissue Neck CT 12/12/23 12:43 IMPRESSION: Moderate left facial edema involving the left parotid gland, masseter muscle, and overlying soft tissues concerning for parotiditis and facial cellulitis without abscess. Trauma could have a similar appearance. Consider follow-up to exclude underlying lesion. Electronically Signed: Raegan Watson MD at 15:26 EST Reading Location ID and State: [facility] / [place] Tel , Service support , <Dr. Dariusz Gaines, DO - Last Filed: 12/12/23 21:41> [facility] MDM Narrative Medical decision making narrative: Patient presenting due to a painful firm mass to the area of his parotid gland on the left side that he has had since Friday. It has gotten progressively larger. Labs will be obtained as well as a CT scan soft tissue neck with contrast. Labs overall are unremarkable, CT scan shows left-sided parotiditis and facial cellulitis without abscess. I did speak with Dr. Paz with ENT who recommends placing patient on antibiotics, sour candies, massages, and having him follow-up in the office. He will be started on clindamycin due to penicillin allergy. While patient was waiting to be discharged he did require supplemental O2, he does use O2 at home as needed. I did give him breathing treatments which improved his symptoms. He will be discharged home in stable condition and is comfortable with plan. Attending note: Patient seen and evaluated with bean snipper. I perform my own [id number] evaluation. I agree with the plan of work-up. Increasing mass left facial or 4 days. Chews tobacco. Reports more dry mouth. No fevers. Exam golf ball size mass parotid region. Tender to palpation. No surrounding erythema. Patient CT soft tissue no concerning parotitis underlying mass not excluded. He started on Augmentin. Discussed with the ENT for close outpatient follow-up. Lab Data Labs: Laboratory Results - last 24 hr 12/12/23 14:10 WBC 10.3 RBC 4.59 L Hgb 14.2 Hct 42.8 MCV 93.2 MCH 30.9 MCHC 33.2 RDW Std Deviation 47.8 H RDW Coeff of Flora 14.0 Plt Count 207 MPV 8.6 Immature Gran % (Auto) 0.500 Neut % (Auto) 68.0 Lymph % (Auto) 16.7 L [place] % (Auto) 7.8 Eos % (Auto) 6.3 H Baso % (Auto) 0.7 Absolute Neuts (auto) 7.0 Absolute Lymphs (auto) 1.73 Nucleated RBC % 0 Sodium 142 Potassium 4.2 Chloride 109 H Carbon Dioxide 28.0 Anion Gap 5 BUN 10 Creatinine 0.59 L Est GFR (MDRD) Af Amer 167 Est GFR (MDRD) Non-Af 138 BUN/Creatinine Ratio 16.9 Glucose 120 H Calcium 9.5 Radiography Diagnostic Testing: Clinical Impression(s) from Imaging Studies Soft Tissue Neck CT 12/12/23 12:43 IMPRESSION: Moderate left facial edema involving the left parotid gland, masseter muscle, and overlying soft tissues concerning for parotiditis and facial cellulitis without abscess. Trauma could have a similar appearance. Consider follow-up to exclude underlying lesion. Electronically Signed: Raegan Watson MD at 15:26 EST , Discharge Plan Triage Chief Complaint: Other, Pain/Inj ED Midlevel Provider: Sofia Malagon ED Provider: Dariusz Gaines Dx/Rx/DC Orders Clinical Impression: Acute parotitis, COPD (chronic obstructive pulmonary disease) Instructions: ED Salivary Gland Infection Prescriptions: New clindamycin HCl 150 mg capsule 450 mg PO TID 10 Days Qty: 90 0RF No Action budesonide-formoterol [Symbicort] 160-4.5 mcg/actuation HFA aerosol inhaler 2 puff inhalation BID Qty: 10.2 6RF fluticasone propionate 50 mcg/actuation spray,suspension 2 spray intranasal DAILY Qty: 16 3RF clopidogrel 75 MG tablet 75 mg PO DAILY losartan 50 mg tablet 50 mg PO DAILY Patient Comments: TAKE 1 TABLET BY MOUTH DAILY latanoprost 0.005 % drops 1 drp EACH EYE QHS Patient Comments: Instill 1 drop into both eyes once a day pravastatin 40 mg tablet 40 mg PO DAILY Patient Comments: TAKE 1 TABLET BY MOUTH EVERY DAY tamsulosin 0.4 mg capsule 0.4 mg PO QHS Patient Comments: TAKE 1 CAPSULE BY MOUTH AT BEDTIME ergocalciferol (vitamin D2) 1,250 mcg (50,000 unit) capsule 1,250 mcg PO UD Patient Comments: TAKE 1 CAPSULE BY MOUTH twice a week Rx Instructions: 2x/week takes on and saturdays Combivent Respimat 20-100 mcg/actuation Mist 2 puff INHALATION Q6H Patient Comments: 25 mcg/100 mcg in medicatio bag albuterol sulfate 90 mcg/actuation HFA aerosol inhaler 2 puff inhalation Q6H PRN (Reason: shortness of breath or wheezing) Qty: 8.5 0RF timolol maleate 0.5 % drops 1 drp ophthalmic (eye) Q12H Patient Comments: Instill 1 drop in both eyes twice a day dexamethasone 2 mg tablet 6 mg PO DAILY 8 Days Qty: 24 0RF furosemide [Lasix] 20 mg tablet 20 mg PO DAILY Qty: 7 0RF Primary Care Provider: Jessica Santiago Referrals: Lan Paz MD [Med Staff - Active Staff] - 5-7 Days Jessica Santiago DO [Primary Care Provider] - Activity Restrictions/Additional Instructions: Follow-up with the ENT and return for any worsening of your symptoms. Take antibiotics as prescribed. Disposition Disposition: Home, Self Care Discharge Date/Time: 12/12/23 16:36
[2023-12-12 14:00] VITALS: PULSE 65; RESP 20; O2SAT 95
[2023-12-12 14:19] LABS: Absolute Lymphocyte Count 1.73 X10^3/uL (0.83-4.51); Basophil# 0.07 X10^3/uL; Basophil% 0.7 % (0-1); Eosinophil# 0.65 X10^3/uL; Eosinophils% 6.3 % (0-5); Hematocrit 42.8 % (40-54); Hemoglobin 14.2 g/dL (13.0-16.5); Lymphocyte # 1.73 X10^3/ul (0.83-4.51); Lymphocyte % 16.7 % (19-41); Mean Corp Hgb Conc 33.2 g/dL (32-36); Mean Corpuscular Hgb 30.9 pg (27.0-32.0); Mean Corpuscular Volume 93.2 fL (80-94); Mean Platelet Vol. 8.6 fl (6.2-12.0); Monocyte# 0.81 X10^3/uL; Monocyte% 7.8 % (0-10); NRBC Flagged by Analyzer 0 % (0-5); Neutrophil # 7.02 X10^3/uL (2.7-7.7); Platelet Count 207 K/mm3 (150-450); RBC Distribution Width SD 47.8 fl (35.1-43.9); Red Blood Count 4.59 M/mm3 (4.6-6.2); White Blood Count 10.3 K/mm3 (4.4-11.0)
[2023-12-12 14:39] LABS: Anion Gap 5 (5-15); BUN 10 mg/dL (7-18); BUN/Creat Ratio 16.9 RATIO (10-20); Calcium,Total 9.5 mg/dL (8.5-10.1); Chloride 109 mmol/L (98-107); Creatinine, Serum 0.59 mg/dL (0.70-1.30); EST Glomerular Filtration Rate 138 mL/min (>60); Est Glom Filt Rate - Afr Amer 167 mL/min (>60); Glucose 120 mg/dL (74-106); Potassium 4.2 mmol/L (3.5-5.1); Sodium Level 142 mmol/L (136-145)
[2023-12-12 16:00] VITALS: BP 170/89; PULSE 75; RESP 26; O2SAT 94
[2023-12-12] MEDS: Clindamycin HCl 150 MG Capsule 450 MG PO (16:06)
[2023-12-12 16:08] VITALS: BP 170/89; PULSE 75; RESP 26; TEMP 36.8; O2SAT 94
[2023-12-12] MEDS: Ipratropium/Albuterol Sulfate 3 ML AMPUL.NEB INHALATION (16:16)
[2023-12-12] MEDS: Albuterol 2.5 MG/3 ML VIAL.NEB. INHALATION (16:16)
[2023-12-12 16:17] VITALS: PULSE 89; RESP 24; O2SAT 97
[2023-12-12 16:22] VITALS: BP 150/87; PULSE 78; RESP 20; O2SAT 98
== END 2023-12-12 16:36 | disposition home or self-care (01) ==
PROVIDERS: Physician Assistant; Emergency Provider Emergency Medicine; PCP Family Medicine; Visit Provider Emergency Medicine
DX: K11.20 Sialoadenitis, unspecified (principal); J44.9 Chronic obstructive pulmonary disease, unspecified; L03.211 Cellulitis of face; Z87.891 Personal history of nicotine dependence; Z86.73 Personal history of transient ischemic attack (TIA), and cerebral infarction without residual deficits
CPT/HCPCS: 70491; 80048; 85025; 94640; 99282; Q9967; A4216

== ENCOUNTER 2024-02-18 11:34 | Inpatient (IN) | payer MEDICARE, OTHER, SELFPAY ==
[2024-02-18] VITALS (17 sets, daily range): BP systolic 128–153; BP diastolic 69–93; PULSE 82–109; RESP 12–32; TEMP 36.4–36.8; O2SAT 87–100; BMI 34.4; BMI 31.4
--- NOTE | 2024-02-18 11:51 | EDS_ITS ---
HPI History of Present Illness Chief Complaint: Shortness of Breath PFSH PFSH Medical History BPH (benign prostatic hyperplasia) COPD (chronic obstructive pulmonary disease) Foot drop, left Glucose intolerance Hyperlipidemia Hypertension Presbycusis Prostate enlargement Stroke Vitamin D deficiency Home Medications ?Medication ?Instructions ?Recorded ?Last Taken ?Type clopidogrel 75 mg tablet 75 mg PO DAILY blood thinner 05/23/20 10/27/20 History ergocalciferol (vitamin D2) 1,250 1,250 mcg PO UD Check with primary 01/24/23 Unknown History mcg (50,000 unit) capsule doctor ipratropium 20 mcg-albuterol 100 2 puff inhalation Q6H COPD 01/24/23 Unknown History mcg/actuation mist for inhalation (Combivent Respimat) latanoprost 0.005 % eye drops 1 drp EACH EYE QHS Check with 01/24/23 Unknown History primary doctor losartan 50 mg tablet 50 mg PO DAILY high blood pressure 01/24/23 Unknown History pravastatin 40 mg tablet 40 mg PO DAILY 01/24/23 Unknown History tamsulosin 0.4 mg capsule 0.4 mg PO QHS Check with primary 01/24/23 Unknown History doctor albuterol sulfate 90 mcg/actuation 2 puff inhalation Q6H PRN 01/25/23 Unknown Rx aerosol inhaler shortness of breath or wheezing #8.5 grams fluticasone propionate 50 2 spray intranasal DAILY #16 grams 08/20/23 Unknown Rx mcg/actuation nasal spray,suspension timolol maleate 0.5 % eye drops 1 drp ophthalmic (eye) Q12H 10/19/23 Unknown History furosemide 20 mg tablet (Lasix) 20 mg PO DAILY #7 tabs 10/21/23 Unknown Rx clindamycin HCl 150 mg capsule 450 mg (3 x 150 mg) PO TID 10 days 12/12/23 Unknown Rx #90 caps budesonide-formoterol HFA 160 2 puff inhalation BID #10.2 grams 12/17/23 Unknown Rx mcg-4.5 mcg/actuation aerosol inhaler (Symbicort) guaifenesin 1,200 mg tablet, 1,200 mg PO Q12H #60 tabs 12/19/23 Unknown Rx extended release 12 hr Nebulizer machine #1 ea 12/22/23 Unknown Rx ipratropium 0.5 mg-albuterol 3 mg 3 ml inhalation Q4H PRN PRN SOB 12/22/23 Unknown Rx (2.5 mg base)/3 mL nebulization &/OR WHEEZING #180 mL soln ipratropium bromide 21 mcg (0.03 2 spray intranasal BID 02/18/24 Unknown History %) nasal spray levocetirizine 5 mg tablet 5 mg PO QHS 02/18/24 Unknown History Allergy/AdvReac Type Severity Reaction Status Date / Time Penicillins Allergy Hives Verified 01/28/24 10:49 adhesive tape AdvReac Other Verified 01/28/24 10:49 fentanyl AdvReac PT UNSURE Verified 01/28/24 10:49 OF REACTION morphine AdvReac PT UNSURE Verified 01/28/24 10:49 OF REACTION Family History Mother Breast cancer Father COPD (chronic obstructive pulmonary disease) CVA (cerebral vascular accident) Surgical History H/O Spinal surgery History of open reduction and internal fixation (ORIF) procedure Status post-operative repair of hip fracture Total knee replacement status Social History household members: spouse housing: house Smoking Status: Former smoker Tobacco: How many years used: 30 how long ago did patient quit smoking: Smoked~ 45 years, ~ 1 pack/week until quit. alcohol intake: former substance use type: does not use EXAM Physical Exam Const Vital Signs: 02/18/24 11:35 02/18/24 11:37 02/18/24 11:51 Temperature 97.6 F L Temperature Source Temporal Pulse Rate 96 Respiratory Rate 32 H Respiratory Effort Short of Breath Respiratory Depth Shallow Respiratory Pattern Tachypnea Blood Pressure Blood Pressure Mean Pulse Ox 87 Oxygen Delivery Method Room Air Room Air Nasal Cannula Fraction of Inspired Oxygen (FIO2) 02/18/24 12:02 02/18/24 12:24 02/18/24 12:37 Temperature Temperature Source Pulse Rate 92 82 89 Respiratory Rate 32 H 18 28 H Respiratory Effort Respiratory Depth Respiratory Pattern Tachypnea Tachypnea Blood Pressure 131/88 H Blood Pressure Mean 102 Pulse Ox 98 99 Oxygen Delivery Method Bi-pap Fraction of Inspired Oxygen (FIO2) 30 30 02/18/24 13:00 Temperature Temperature Source Pulse Rate 84 Respiratory Rate 20 H Respiratory Effort Respiratory Depth Respiratory Pattern Blood Pressure 128/81 H Blood Pressure Mean 96 Pulse Ox 99 Oxygen Delivery Method Bi-pap Fraction of Inspired Oxygen (FIO2) [facility] Narrative Medical decision making narrative: HISTORY OF PRESENT ILLNESS: 84-year-old male presents with shortness of breath. He states he is unable to speak. States 2 days of worsening shortness of breath. No cough. The patient denies recent surgery in the last 4 weeks or immobilization in the last 3 days, denies previous diagnosis of DVT or PE, hemoptysis, unilateral leg swelling or malignancy with treatment the last 6 months or palliative. No estrogen use noted. No leg swelling. No chest pain. No vomiting. No fever. No sick contacts. REVIEW OF SYSTEMS: Pertinent positives: Shortness of breath Pertinent negatives: Chest pain, leg swelling, syncope PHYSICAL EXAM: Nursing triage notes reviewed, Vital signs reviewed Constitutional: please see mdm HENT: MMM Eyes: Pupils equal round and reactive to light, Extraocular muscles intact Neck: No stridor, no JVD, full neck ROM Lungs: Severe respiratory distress, tripoding, increased work of breathing, conversational dyspnea, bilateral tight lungs, prolonged expiratory phase, inspiratory wheeze Heart: Regular rate and rhythm, No murmurs, No rubs and No gallops, 2+ distal pulses (radial, femoral, posterior tibial) in all extremities Abdomen: Soft, there is no tenderness, rigidity, rebound or guarding, no obvious peritoneal signs, no palpable pulsatile abdominal masses, no auscultated abdominal bruit : No CVAT Extremities: No edema Neuro: No focal neurological deficits, cranial nerves II through XII intact, 5/5 strength in all extremities. Intact sensation to light touch in all extremities, 2+ reflexes bilateral patella tendons. Normal gait. No ataxia. Skin: No rash or lesions noted MEDICAL DECISION MAKING: Chief Complaint: Shortness of breath External records reviewed: Prior inpatient mission reviewed from October 2023. Factors affecting care: HTN, HLD, BPH, Chronic L Foot Drop, Hx CVA, COPD/asthma, Social determinants of health: Former smoker History obtained from others: Patient's Consults: Internal medicine, critical care Goals of care discussion: Full code [facility] Narrative: Patient was initially saturating 87% on room air, tachypneic with signs of severe respiratory distress. He was started medially on BiPAP for rescue therapy. I considered the following differential diagnosis: COPD exacerbation, anemia, arrhythmia, pneumonia, ACS, arrhythmia, PE I considered PE I thought this diagnosis was less likely given focal lung findings, history of COPD, low risk Wells score and physical and history more suggestive of likely COPD exacerbation ALL IMAGES (IF OBTAINED) HAVE BEEN PERSONALLY REVIEWED AND INTERPRETED BY MYSELF. EKG with normal sinus rhythm, normal axis, normal intervals, no STEMI CBC with leukocytosis suggestive of systemic inflammation, no anemia or thrombocytopenia VBG with no evidence of CO2 retention or respiratory acidosis BMP without evidence of significant electrolyte abnormalities, no anion gap, no acute kidney injury. High-sensitivity troponin is negative, no evidence of myocardial ischemia BNP within normal limits suggestive of no volume overload or increased ventricular stretch The patient and/or family, caregivers express understanding. The patient and/or family, caregivers agrees with the plan. Shared decision making: I will have a discussion with the patient and or visitors regarding risk/benefits of further testing or admission. They will be made aware of of the risk/benefits inherent in this decision they will be given the opportunity to voice understanding. Total critical care time today provided was at least 35 minutes. This excludes separately billable procedures. Critical care time (if documented) is secondary to the patient having high probability of clinically significant/life threatening deterioration in the patient's condition which required my urgent intervention. Impression: 1. Acute respiratory failure 2. History of COPD 3. Leukocytosis Dispo: admit This note was generated with [email or web address] dictation software. It may contain incorrect words, spelling, and punctuation that were not noted in review of the chart prior to signing. Lab Data Labs: Laboratory Results - last 24 hr 02/18/24 11:55 WBC 14.5 H RBC 5.16 Hgb 16.4 Hct 49.5 MCV 95.9 H MCH 31.8 MCHC 33.1 RDW Std Deviation 43.7 RDW Coeff of [place]ora 12.3 Plt Count 239 MPV 8.6 Immature Gran % (Auto) 0.300 Neut % (Auto) 77.7 H Lymph % (Auto) 9.0 L [place] % (Auto) 5.2 Eos % (Auto) 7.1 H Baso % (Auto) 0.7 Absolute Neuts (auto) 11.3 H Absolute Lymphs (auto) 1.30 Nucleated RBC % 0 Sodium 137 Potassium 4.3 Chloride 106 Carbon Dioxide 30.0 Anion Gap 1 L BUN 15 Creatinine 0.90 Estim Creat Clear Calc 67.54 Est GFR (MDRD) Af Amer 104 Est GFR (MDRD) Non-Af 86 BUN/Creatinine Ratio 16.8 Glucose 155 H Calcium 10.3 H Troponin I High Sens 6 B-Natriuretic Peptide 3.9 ABG Data ABG results: ABG 02/18/24 12:36 Specimen Type VALERIY Sample Site Not entered O2 % 30.0 VBG pH 7.43 H VBG pO2 74 H VBG HCO3 26 VBG Total CO2 27 VBG O2 Sat (Calc) 95 H VBG Base Excess 2 POC Mix VBG pCO2 Pt Tmp 39.3 L Respiration Rate 12 O2 Delivery Device BiPAP POC PEEP 6 Radiography Diagnostic Testing: Clinical Impression(s) from Imaging Studies Chest X-Ray 02/18/24 11:51 IMPRESSION: Mild bibasilar atelectasis, decreased from prior. Electronically Signed: Raegan Watson MD at 12:31 EDT , Discharge Plan Triage Chief Complaint: Shortness of Breath ED Provider: Singh Stein Dx/Rx/DC Orders Prescriptions: No Action fluticasone propionate 50 mcg/actuation spray,suspension 2 spray intranasal DAILY Qty: 16 3RF guaifenesin 1,200 mg tablet extended release 12hr 1,200 mg PO Q12H Qty: 60 6RF clopidogrel 75 MG tablet 75 mg PO DAILY losartan 50 mg tablet 50 mg PO DAILY Patient Comments: TAKE 1 TABLET BY MOUTH DAILY latanoprost 0.005 % drops 1 drp EACH EYE QHS Patient Comments: Instill 1 drop into both eyes once a day pravastatin 40 mg tablet 40 mg PO DAILY Patient Comments: TAKE 1 TABLET BY MOUTH EVERY DAY tamsulosin 0.4 mg capsule 0.4 mg PO QHS Patient Comments: TAKE 1 CAPSULE BY MOUTH AT BEDTIME ergocalciferol (vitamin D2) 1,250 mcg (50,000 unit) capsule 1,250 mcg PO UD Patient Comments: TAKE 1 CAPSULE BY MOUTH twice a week Rx Instructions: 2x/week takes on and saturdays Combivent Respimat 20-100 mcg/actuation Mist 2 puff INHALATION Q6H Patient Comments: 25 mcg/100 mcg in medicatio bag albuterol sulfate 90 mcg/actuation HFA aerosol inhaler 2 puff inhalation Q6H PRN (Reason: shortness of breath or wheezing) Qty: 8.5 0RF timolol maleate 0.5 % drops 1 drp ophthalmic (eye) Q12H Patient Comments: Instill 1 drop in both eyes twice a day furosemide [Lasix] 20 mg tablet 20 mg PO DAILY Qty: 7 0RF clindamycin HCl 150 mg capsule 450 mg PO TID 10 Days Qty: 90 0RF ipratropium bromide 21 mcg (0.03 %) spray,non-aerosol 2 spray INTRANASAL BID levocetirizine 5 mg tablet 5 mg PO QHS budesonide-formoterol [Symbicort] 160-4.5 mcg/actuation HFA aerosol inhaler 2 puff inhalation BID Qty: 10.2 6RF (DME) Nebulizer machine See Rx Instructions .ROUTE .MEDSUPPLY Qty: 1 0RF Rx Instructions: As directed ipratropium-albuterol 0.5 mg-3 mg(2.5 mg base)/3 mL solution for nebulization 3 ml inhalation Q4H PRN PRN (Reason: SOB &/OR WHEEZING) Qty: 180 6RF Primary Care Provider: Jessica Santiago Referrals: Jessica Santiago DO [Primary Care Provider] - Print Language: [place]
--- NOTE | 2024-02-18 11:51 | RAD_ITS ---
HISTORY: SOB. TECHNIQUE: XR Chest 1 View. COMPARISON: 10/19/2023. FINDINGS: CARDIOMEDIASTINAL BORDERS: Cardiac silhouette within normal limits in size. Mediastinal contour unchanged with calcification of the aortic knob. LUNGS: Mild hyperinflation with decreased bibasilar opacities. PLEURA: No pleural effusion or pneumothorax seen. OSSEOUS STRUCTURES: Degenerative change. RAD/Chest 1 View (Portable) IMPRESSION: Mild bibasilar atelectasis, decreased from prior. Electronically Signed: Raegan Watson MD at 12:31 EDT ,
--- NOTE | 2024-02-18 11:51 | EKG12_ITS ---
Test Reason : SOB Blood Pressure : / mmHG Vent. Rate : 088 BPM Atrial Rate : 088 BPM P-R Int : 160 ms QRS Dur : 068 ms QT Int : 364 ms P-R-T Axes : 000 079 070 degrees QTc Int : 440 ms Normal sinus rhythm Nonspecific ST abnormality Abnormal ECG Confirmed by Colton Malave ([id number]), news copy editor BETY KIRBY ([id number]) on 02/23/2024 9:35:12 AM Referred By: ILEEN/TA Confirmed By:Colton Malave
[2024-02-18 12:08] LABS: Absolute Neutrophil Count 11.3 X10^3/uL (2.0-7.7); Basophil% 0.7 % (0-1); Eosinophil# 1.03 X10^3/uL; Eosinophils% 7.1 % (0-5); Hematocrit 49.5 % (40-54); Hemoglobin 16.4 g/dL (13.0-16.5); Mean Corp Hgb Conc 33.1 g/dL (32-36); Mean Corpuscular Hgb 31.8 pg (27.0-32.0); Mean Corpuscular Volume 95.9 fL (80-94); Mean Platelet Vol. 8.6 fl (6.2-12.0); Monocyte# 0.75 X10^3/uL; Monocyte% 5.2 % (0-10); NRBC Flagged by Analyzer 0 % (0-5); Neutrophil # 11.25 X10^3/uL (2.7-7.7); Neutrophil % 77.7 % (47-70); Platelet Count 239 K/mm3 (150-450); RBC Distribution Width CV 12.3 % (11.6-14.6); RBC Distribution Width SD 43.7 fl (35.1-43.9); Red Blood Count 5.16 M/mm3 (4.6-6.2); White Blood Count 14.5 K/mm3 (4.4-11.0)
[2024-02-18] MEDS: Ipratropium/Albuterol Sulfate 3 ML AMPUL.NEB INHALATION ×3 (12:14→17:30)
[2024-02-18] MEDS: MethylPREDNISolone 125 MG/2 ML Vial IV (12:14)
[2024-02-18 12:34] LABS: BNP,B-Type NATRIURETIC PEPTIDE 3.9 pg/mL (0-100)
[2024-02-18 12:40] LABS: Blood Gas Specimen Type VEN; O2 Delivery Device BiPAP; PEEP 6; RR 12; SITE Not entered; VBG BASE EXCESS 2 mmol/L (-1.0-3.5); VBG Bicarbonate 26 mmol/L (22-26); VBG PO2 74 mmHg (25-40); VBG SO2 95 % (50-70); VBG TCO2 27 mmol/L (23-33); VBG pCO2 39.3 mmHg (41-51); VBG pH 7.43 (7.32-7.42)
[2024-02-18 12:42] LABS: Anion Gap 1 (5-15); BUN 15 mg/dL (7-18); BUN/Creat Ratio 16.8 RATIO (10-20); Calcium,Total 10.3 mg/dL (8.5-10.1); Chloride 106 mmol/L (98-107); EST Glomerular Filtration Rate 86 mL/min (>60); Est Glom Filt Rate - Afr Amer 104 mL/min (>60); Estimated Creatinine Clearance 67.54 ml/min; Glucose 155 mg/dL (74-106); Potassium 4.3 mmol/L (3.5-5.1); Sodium Level 137 mmol/L (136-145); Troponin-I HS 6 pg/mL (3.0-78.0)
--- NOTE | 2024-02-18 13:50 | PCM.HP.STD ---
HPI - General General Date of Admission: 02/18/24 Date of Service: 02/18/24 Chief Complaint: Dyspnea, cough, congestion, wheezing, worsening. HPI Narrative The patient is an 84 y/o M w/ PMHx: HTN, HLD, BPH, Chronic L Foot Drop, Hx CVA, COPD/asthma, Former tobacco use who presents to the [facility] ED on 02/18/24 with history of 1 week of fatigue, malaise, body aches, congestion, rhinorrhea, cough without marked sputum production, intermittent wheezing and shortness of breath, progressing over the last 2 days significantly worsening with tachypnea, inability to speak in full sentences and respiratory distress noted to initially be tripoding with conversational dyspnea, bilateral tightness on initial ED evaluation and prolonged expiratory phase with inspiratory wheezing prompting immediate transition to BiPAP. Workup in the ED included T97.6, heart rate 96, BP 131/88, respiratory rate 32, initially 87% on room air transitionally placed on BiPAP noted to be 98 to 99% on 30% FiO2 with most recent repeat vitals heart rate 84, BP 120/81, respiratory rate 20, 97% on 2 L nasal cannula, CBC with WBC 14.5, hemoglobin 16.4, platelet 239 with left shift, VBG with pH 7.43, pO2 74, CO2 27, O2 saturation 95% performed on BiPAP BMP with glucose 155, troponin 6, BNP 3.9, chest x-ray with mild hyperinflation with bilateral bibasilar atelectasis, EKG with sinus rhythm with no acute evidence of ischemia. In the ED patient ministered DuoNeb therapies as well as Solu-Medrol 125 mg IV x 1. PFSH Medical History Former tobacco use Obesity Asthma-COPD overlap syndrome Foot drop, left Hyperlipidemia Hypertension Stroke BPH (benign prostatic hyperplasia) Presbycusis Vitamin D deficiency Home Medications ?Medication ?Instructions ?Recorded ?Last Taken ?Type clopidogrel 75 mg tablet 75 mg PO DAILY blood thinner 05/23/20 02/17/24 History ergocalciferol (vitamin D2) 1,250 1,250 mcg PO UD Check with primary 01/24/23 02/17/24 History mcg (50,000 unit) capsule doctor ipratropium 20 mcg-albuterol 100 2 puff inhalation Q6H COPD 01/24/23 02/18/24 History mcg/actuation mist for inhalation (Combivent Respimat) latanoprost 0.005 % eye drops 1 drp EACH EYE QHS Check with 01/24/23 02/17/24 History primary doctor losartan 50 mg tablet 50 mg PO DAILY high blood pressure 01/24/23 02/18/24 History pravastatin 40 mg tablet 40 mg PO DAILY 01/24/23 Unknown History tamsulosin 0.4 mg capsule 0.4 mg PO QHS Check with primary 01/24/23 02/17/24 History doctor albuterol sulfate 90 mcg/actuation 2 puff inhalation Q6H PRN 01/25/23 Unknown Rx aerosol inhaler shortness of breath or wheezing #8.5 grams timolol maleate 0.5 % eye drops 1 drp ophthalmic (eye) Q12H 10/19/23 02/18/24 History budesonide-formoterol HFA 160 2 puff inhalation BID #10.2 grams 12/17/23 Unknown Rx mcg-4.5 mcg/actuation aerosol inhaler (Symbicort) guaifenesin 1,200 mg tablet, 1,200 mg PO Q12H #60 tabs 12/19/23 02/18/24 Rx extended release 12 hr Nebulizer machine #1 ea 12/22/23 Unknown Rx ipratropium 0.5 mg-albuterol 3 mg 3 ml inhalation Q4H PRN PRN SOB 12/22/23 Unknown Rx (2.5 mg base)/3 mL nebulization &/OR WHEEZING #180 mL soln hydrocortisone 2.5 % topical cream 1 applic topical DAILY PRN itching 02/18/24 Unknown History ipratropium bromide 21 mcg (0.03 2 spray intranasal BID 02/18/24 Unknown History %) nasal spray levocetirizine 5 mg tablet 5 mg PO QHS 02/18/24 Unknown History Allergy/AdvReac Type Severity Reaction Status Date / Time Penicillins Allergy Hives Verified 01/28/24 10:49 adhesive tape AdvReac Other Verified 01/28/24 10:49 fentanyl AdvReac PT UNSURE Verified 01/28/24 10:49 OF REACTION morphine AdvReac PT UNSURE Verified 01/28/24 10:49 OF REACTION Family History Mother Breast cancer Father COPD (chronic obstructive pulmonary disease) CVA (cerebral vascular accident) Surgical History Status post-operative repair of hip fracture H/O Spinal surgery Total knee replacement status History of open reduction and internal fixation (ORIF) procedure Social History household members: spouse housing: house Smoking Status: Former smoker Tobacco: How many years used: 30 how long ago did patient quit smoking: Smoked~ 45 years, ~ 1 pack/week until quit. alcohol intake: former substance use type: does not use ROS ROS Narrative Admission Review of Systems: CONSTITUTIONAL: No weight loss, fever, chills, + weakness or fatigue. HEENT: + Cough, congestion, sneezing. Eyes: No visual loss, blurred vision, double vision or yellow sclerae. Ears, Nose, Throat: No hearing loss, sore throat. SKIN: No rash or itching, lesions, wounds. CARDIOVASCULAR: No chest pain, chest pressure or chest discomfort, palpitations, edema, orthopnea, syncopal events. RESPIRATORY: + Dyspnea, cough without marked sputum production, wheezing. No hemoptysis. GASTROINTESTINAL: No anorexia, nausea, vomiting or diarrhea, abdominal pain, melena, BRBPR. GENITOURINARY: No dysuria, frequency, urgency or retention. NEUROLOGICAL: No headache, dizziness, syncope, paralysis, ataxia, numbness or tingling in the extremities, focal weakness, change in bowel or bladder control, seizure. MUSCULOSKELETAL: + muscle, back pain, joint pain or stiffness. HEMATOLOGIC: No anemia. + Easy bleeding/bruising. LYMPHATICS: No enlarged nodes. No history of splenectomy. PSYCHIATRIC: No history of depression or anxiety. ENDOCRINOLOGIC: No diaphoresis. No cold or heat intolerance. No polyuria or polydipsia. ALLERGIES: + History of asthma, rhinitis. Vital Signs Vital Signs Vital Signs: 02/18/24 11:35 02/18/24 11:37 02/18/24 11:51 Temperature 97.6 F L Temperature Source Temporal Pulse Rate 96 Respiratory Rate 32 H Respiratory Effort Short of Breath Respiratory Depth Shallow Respiratory Pattern Tachypnea Blood Pressure Blood Pressure Mean Pulse Ox 87 Oxygen Delivery Method Room Air Room Air Nasal Cannula Oxygen Flow Rate (L/min) Fraction of Inspired Oxygen (FIO2) 02/18/24 12:02 02/18/24 12:24 02/18/24 12:37 Temperature Temperature Source Pulse Rate 92 82 89 Respiratory Rate 32 H 18 28 H Respiratory Effort Respiratory Depth Respiratory Pattern Tachypnea Tachypnea Blood Pressure 131/88 H Blood Pressure Mean 102 Pulse Ox 98 99 Oxygen Delivery Method Bi-pap Oxygen Flow Rate (L/min) Fraction of Inspired Oxygen (FIO2) 30 30 02/18/24 13:00 02/18/24 13:26 Temperature Temperature Source Pulse Rate 84 Respiratory Rate 20 H Respiratory Effort Respiratory Depth Respiratory Pattern Blood Pressure 128/81 H Blood Pressure Mean 96 Pulse Ox 99 97 Oxygen Delivery Method Bi-pap Nasal Cannula Oxygen Flow Rate (L/min) 2 Fraction of Inspired Oxygen (FIO2) Weight Weight: 220 lb Body Mass Index (BMI) 34.4 Physical Exam Narrative Physical Examination: General: Awake, alert, oriented x 3 and cooperative, seated upright in the ED bed, fatigued, BiPAP recently removed, respiratory distress appears resolved but does become fatigued with increased tachypnea, accessory muscle usage when he attempts to talk in lengthy fashion. Skin: Normal color, normal turgor, no icterus, no cyanosis except occasional staged ecchymoses. HEENT: AT/NC, EOMI, PERRLA, mildly dry MM, transitioned to NC, no noted carotid bruits, no marked JVD. Lungs: Diminished, greater bases, diffuse occasional end expiratory wheeze, still ongoing mildly increased respiratory rate and some accessory muscle usage, respiratory distress notably improved, no overt rales or rhonchi. Heart: Mildly tachycardic with regular rhythm; no gallop, rub audible. Abdomen: Soft, obese, NTTP, ND, distant normal BS, no appreciated HSM. Extremities: No cyanosis, clubbing, or edema. Neurological: Patient awake, alert, oriented as noted, cognitive function intact; pupils equally reactive to light and accommodation, cranial nerves II-XII grossly normal, moving all 4 extremities, no focal deficits, strength severely globally decreased secondary to acute presentation. Psychiatric: Affect appears fatigued, respiratory distress resolving as noted, no acute evidence of depressive or anxiety feelings. Results Lab / Micro Data 02/18/24 11:55 02/18/24 11:55 Labs: Laboratory Results - last 24 hr 02/18/24 11:55: WBC 14.5 H, RBC 5.16, Hgb 16.4, Hct 49.5, MCV 95.9 H, MCH 31.8, MCHC 33.1, RDW Std Deviation 43.7, RDW Coeff of Flora 12.3, Plt Count 239, MPV 8.6, Immature Gran % (Auto) 0.300, Neut % (Auto) 77.7 H, Lymph % (Auto) 9.0 L, [place] % (Auto) 5.2, Eos % (Auto) 7.1 H, Baso % (Auto) 0.7, Absolute Neuts (auto) 11.3 H, Absolute Lymphs (auto) 1.30, Nucleated RBC % 0, Sodium 137, Potassium 4.3, Chloride 106, Carbon Dioxide 30.0, Anion Gap 1 L, BUN 15, Creatinine 0.90, Estim Creat Clear Calc 67.54, Est GFR (MDRD) Af Amer 104, Est GFR (MDRD) Non-Af 86, BUN/Creatinine Ratio 16.8, Glucose 155 H, Calcium 10.3 H, Troponin I High Sens 6, B-Natriuretic Peptide 3.9 ABG Data ABG results: ABG 02/18/24 12:36 Specimen Type VALERIY Sample Site Not entered O2 % 30.0 VBG pH 7.43 H VBG pO2 74 H VBG HCO3 26 VBG Total CO2 27 VBG O2 Sat (Calc) 95 H VBG Base Excess 2 POC Mix VBG pCO2 Pt Tmp 39.3 L Respiration Rate 12 O2 Delivery Device BiPAP POC PEEP 6 Imaging Radiology Impression Chest X-Ray 02/18/24 11:51 IMPRESSION: Mild bibasilar atelectasis, decreased from prior. Electronically Signed: Raegan Watson MD at 12:31 EDT , Assessment & Plan Assessment/Plan (1) Acute exacerbation of chronic obstructive pulmonary disease (COPD): PLAN: Plan The patient is an 84 y/o M w/ PMHx: HTN, HLD, BPH, Chronic L Foot Drop, Hx CVA, COPD/asthma, Former tobacco use who presents to the [facility] ED on 02/18/24 with history of shortness of breath progressing over the last 2 days significantly worsening with tachypnea, inability to speak in full sentences and respiratory distress upon ED arrival. #1. Acute Hypoxic Respiratory Failure (Notable Hypoxia, requiring BIPAP transiently, tachypnea, evidence respiratory distress noted per ED eventually transitioned to [place]) secondary to Acute on Chronic COPD/asthma exacerbation: Will admit to [place] given clinical improvement, now off BIPAP, will continue supplemental nasal cannula oxygen with wean to room air as tolerated, continue ATC duonebs, PRN albuterol, IV methylprednisolone, HOB, IS parameters, will obtain sputum Cx, full respiratory viral panel, procalcitonin, will hold on abx pending these items. #2. Hyperglycemia: Admission glucose 155 possibly stress response, will obtain hemoglobin A1c to be cautious. #3. Hypercalcemia, mild: During prior presentation he had similar mild elevate with Ca 10.4 at that time. Admission Ca 10.3, will hydrate and will obtain ICa, hepatic profile w/ CMP in AM, Mag, Phos, vitamin D level (25-(OH)D, 1,25-(OH)2D), PTH, UCa given persistent and repeat CMP in AM. #4. 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 #5. Hypertension: Continue home regimen including losartan, PRN hydralazine. #6. Hyperlipidemia: Will continue patient on statin therapy. #7. Allergic rhinitis: We will continue patient home levocetirizine and nasal ipratropium regimen. #8. Former tobacco use: Encourage continued tobacco cessation. #9. BPH: We will continue patient on Flomax regimen. #10. Chronic left foot drop: Continue patient bracing, fall precautions. #11. DVT prophylaxis: Lovenox. #12. CODE status: Patient HCPOA and living will are not in place but his who is present would be his decision-maker if he was unable he notes. Discussed CODE status at length including difference between FULL code, DNR-CCA and DNR-CC status. Following discussions about the differences in these status, requested Full Code status. Advanced Care Planning Face to Face Time: 16 minutes. Charges/Coding Visit Charges Inpatient E&M: 10463 Init Hosp L3 Procedures Hospitalists Procedures: 46906 Advncd Care Plan 30 Min
[2024-02-18 16:17] LABS: Procalcitonin < 0.04 ng/mL (0.00-0.09)
[2024-02-18] MEDS: Latanoprost 0.005% 1 Bottle 1 DRP EACH EYE (20:17)
[2024-02-18] MEDS: Ipratropium Bromide 0.06% NASAL SPRAY 2 SPRAY NASAL (20:17)
[2024-02-18] MEDS: Tamsulosin HCl 0.4 MG Capsule PO (20:19)
[2024-02-18] MEDS: guaiFENesin 1,200 MG Tablet 1200 MG PO (20:19)
[2024-02-18] MEDS: 0.9% Saline Lock 10 ML Syringe IV (20:19)
[2024-02-18] MEDS: Loratadine 10 MG Tablet PO (20:19)
[2024-02-19] VITALS (15 sets, daily range): BP systolic 140–155; BP diastolic 62–106; PULSE 84–107; RESP 12–26; TEMP 35.8–36.6; O2SAT 93–98; BMI 31.5
[2024-02-19] MEDS: Albuterol 2.5 MG/3 ML VIAL.NEB. INHALATION (05:19)
[2024-02-19] MEDS: 0.9% Saline Lock 10 ML Syringe IV ×3 (06:00→21:48)
[2024-02-19] MEDS: Ipratropium/Albuterol Sulfate 3 ML AMPUL.NEB INHALATION ×4 (07:18→23:15)
[2024-02-19 07:20] LABS: Absolute Lymphocyte Count 1.03 X10^3/uL (0.83-4.51); Absolute Neutrophil Count 13.6 X10^3/uL (2.0-7.7); Basophil# 0.03 X10^3/uL; Basophil% 0.2 % (0-1); Hematocrit 48.3 % (40-54); Hemoglobin 15.9 g/dL (13.0-16.5); Lymphocyte # 1.03 X10^3/ul (0.83-4.51); Lymphocyte % 6.7 % (19-41); Mean Corp Hgb Conc 32.9 g/dL (32-36); Mean Corpuscular Hgb 31.3 pg (27.0-32.0); Mean Corpuscular Volume 95.1 fL (80-94); Mean Platelet Vol. 8.4 fl (6.2-12.0); Monocyte# 0.59 X10^3/uL; Monocyte% 3.8 % (0-10); NRBC Flagged by Analyzer 0 % (0-5); Neutrophil # 13.58 X10^3/uL (2.7-7.7); Neutrophil % 88.6 % (47-70); Platelet Count 245 K/mm3 (150-450); RBC Distribution Width CV 12.1 % (11.6-14.6); RBC Distribution Width SD 42.6 fl (35.1-43.9); Red Blood Count 5.08 M/mm3 (4.6-6.2); White Blood Count 15.3 K/mm3 (4.4-11.0)
[2024-02-19 08:12] LABS: ALB/GLOB Ratio 1.1 RATIO (0.9-2.4); AST(SGOT) 17 U/L (15-37); Alanine Aminotransfer ALT/SGPT 24 U/L (16-61); Albumin, Serum 3.7 g/dL (3.2-5.0); Alkaline Phosphatase 82 U/L (45-117); Anion Gap 2 (5-15); BUN 17 mg/dL (7-18); BUN/Creat Ratio 21.1 RATIO (10-20); Calcium,Total 10.3 mg/dL (8.5-10.1); Chloride 106 mmol/L (98-107); EST Glomerular Filtration Rate 97 mL/min (>60); Est Glom Filt Rate - Afr Amer 117 mL/min (>60); Estimated Creatinine Clearance 72.66 ml/min; Globulin 3.3 g/dL (2.2-4.2); Glucose 201 mg/dL (74-106); Sodium Level 138 mmol/L (136-145)
[2024-02-19] MEDS: guaiFENesin 1,200 MG Tablet 1200 MG PO ×2 (08:21→21:49)
[2024-02-19] MEDS: Enoxaparin 40 MG/0.4 ML Syringe SC (08:21)
[2024-02-19] MEDS: Ipratropium Bromide 0.06% NASAL SPRAY 2 SPRAY NASAL ×2 (08:22→21:49)
[2024-02-19] MEDS: Clopidogrel Bisulfate 75 MG Tablet PO (08:22)
[2024-02-19] MEDS: Timolol 0.5% 5ML OPTH.BTL 1 DRP OPHTHALMIC ×2 (08:23→21:58)
--- NOTE | 2024-02-19 08:30 | PCM.PN.HOSP ---
Reason for Visit Reason for Visit: Diagnoses Chronic obstructive pulmonary disease with (acute) exacerbation (02/18/24) Objective Data Objective Data Vital Signs: Vital Signs Temp Pulse Resp BP Pulse Ox O2 Del Method O2 Flow Rate 96.5 F L 84 18 142/62 H 95 Nasal Cannula 2 02/19/24 08:07 02/19/24 08:07 02/19/24 08:07 02/19/24 08:07 02/19/24 08:07 02/19/24 08:28 02/19/24 08:28 FiO2 30 02/19/24 07:26 Oxygen Flow Rate (L/min) 2 Oxygen Delivery Method Nasal Cannula Weight: 200 lb 13.458 oz Body Mass Index (BMI) 31.5 Intake & Output: Intake and Output for Last 24 Hours 02/17/24 02/18/24 02/19/24 23:59 23:59 23:59 Intake Total 400 / 400 Balance 400 / 400 Lab / Micro Data 02/19/24 07:10 02/19/24 07:10 Labs: Laboratory Results - last 24 hr 02/18/24 11:55: WBC 14.5 H, RBC 5.16, Hgb 16.4, Hct 49.5, MCV 95.9 H, MCH 31.8, MCHC 33.1, RDW Std Deviation 43.7, RDW Coeff of Flora 12.3, Plt Count 239, MPV 8.6, Immature Gran % (Auto) 0.300, Neut % (Auto) 77.7 H, Lymph % (Auto) 9.0 L, [place] % (Auto) 5.2, Eos % (Auto) 7.1 H, Baso % (Auto) 0.7, Absolute Neuts (auto) 11.3 H, Absolute Lymphs (auto) 1.30, Nucleated RBC % 0, Sodium 137, Potassium 4.3, Chloride 106, Carbon Dioxide 30.0, Anion Gap 1 L, BUN 15, Creatinine 0.90, Estim Creat Clear Calc 67.54, Est GFR (MDRD) Af Amer 104, Est GFR (MDRD) Non-Af 86, BUN/Creatinine Ratio 16.8, Glucose 155 H, Calcium 10.3 H, Troponin I High Sens 6, B-Natriuretic Peptide 3.9 02/18/24 15:23: Procalcitonin < 0.04 02/19/24 07:10: WBC 15.3 H, RBC 5.08, Hgb 15.9, Hct 48.3, MCV 95.1 H, MCH 31.3, MCHC 32.9, RDW Std Deviation 42.6, RDW Coeff of Flora 12.1, Plt Count 245, MPV 8.4, Immature Gran % (Auto) 0.700, Neut % (Auto) 88.6 H, Lymph % (Auto) 6.7 L, [place] % (Auto) 3.8, Eos % (Auto) 0.0, Baso % (Auto) 0.2, Absolute Neuts (auto) 13.6 H, Absolute Lymphs (auto) 1.03, Nucleated RBC % 0, Sodium 138, Potassium 4.0, Chloride 106, Carbon Dioxide 30.0, Anion Gap 2 L, BUN 17, Creatinine 0.80, Estim Creat Clear Calc 72.66, Est GFR (MDRD) Af Amer 117, Est GFR (MDRD) Non-Af 97, BUN/Creatinine Ratio 21.1 H, Glucose 201 H, Calcium 10.3 H, Total Bilirubin 0.30, AST 17, ALT 24, Alkaline Phosphatase 82, Total Protein 7.0, Albumin 3.7, Globulin 3.3, Albumin/Globulin Ratio 1.1 Micro: Microbiology 02/18/24 17:32 Mucosa - Nasopharyngeal Respiratory Panel (PCR) - Final ABG Data ABG results: ABG 02/18/24 12:36 Specimen Type VALERIY Sample Site Not entered O2 % 30.0 VBG pH 7.43 H VBG pO2 74 H VBG HCO3 26 VBG Total CO2 27 VBG O2 Sat (Calc) 95 H VBG Base Excess 2 POC Mix VBG pCO2 Pt Tmp 39.3 L Respiration Rate 12 O2 Delivery Device BiPAP POC PEEP 6 Radiography Diagnostic Testing: Radiology Impression Chest X-Ray 02/18/24 11:51 IMPRESSION: Mild bibasilar atelectasis, decreased from prior. Electronically Signed: Raegan Watson MD at 12:31 EDT , Assessment & Plan Assessment/Plan (1) Acute exacerbation of chronic obstructive pulmonary disease (COPD): PLAN: Plan The patient is an 84 y/o M was admitted with shortness of breath, progressive worsening over last 2 days along with tachypnea, inability to speak in full sentences and respiratory distress. #1. Acute Hypoxic Respiratory Failure (Notable Hypoxia, requiring BIPAP transiently, tachypnea, evidence respiratory distress noted per ED eventually transitioned to [place]) secondary to Acute on Chronic COPD/asthma exacerbation: Will admit to MS given clinical improvement, now off BIPAP, will continue supplemental nasal cannula oxygen with wean to room air as tolerated, continue ATC duonebs, PRN albuterol, IV methylprednisolone, HOB, IS parameters, will obtain sputum Cx, full respiratory viral panel, procalcitonin, will hold on abx pending these items. #2. Hyperglycemia: Admission glucose 155 possibly stress response, will obtain hemoglobin A1c to be cautious. #3. Hypercalcemia, mild: During prior presentation he had similar mild elevate with Ca 10.4 at that time. Admission Ca 10.3, will hydrate and will obtain ICa, hepatic profile w/ CMP in AM, Mag, Phos, vitamin D level (25-(OH)D, 1,25-(OH)2D), PTH, UCa given persistent and repeat CMP in AM. #4. 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 #5. Hypertension: Continue home regimen including losartan, PRN hydralazine. #6. Hyperlipidemia: Will continue patient on statin therapy. #7. Allergic rhinitis: We will continue patient home levocetirizine and nasal ipratropium regimen. #8. Former tobacco use: Encourage continued tobacco cessation. #9. BPH: We will continue patient on Flomax regimen. #10. Chronic left foot drop: Continue patient bracing, fall precautions. #11. DVT prophylaxis: Lovenox. #12. CODE status: Patient HCPOA and living will are not in place but his who is present would be his decision-maker if he was unable he notes. Discussed CODE status at length including difference between FULL code, DNR-CCA and DNR-CC status. Following discussions about the differences in these status, requested Full Code status. Advanced Care Planning Face to Face Time: 16 minutes.
--- NOTE | 2024-02-19 11:00 | CASEMGMT ---
Addendum entered by Evita Marshall 02/19/24 12:07: Pt stated he uses [facility] for oxygen needs. Original Note: JO ANN CONNER Assessment: Face to Face with pt for initial transition planning/care coordination assessment. JO ANN CONNER introduced self and role at [facility], pt voices understanding and consents to assessment. Pt lying in bed in no distress. came in towards end of conversation. Pt is A&O x4 and answers all questions appropriately at this time. Care providers, pharmacy, and demographics verified/updated. Admitting Dx: Acute Resp Failure, COPD exac. PCP: Jack Specialists: Eduardo, Bottom Worker; Tamela, Urologist; Jasvir, Eye Preferred Pharmacy: [facility] Insurance: Medicare, Dispopna Prescription Benefit: yes LNOK: Prema - Living Arrangements: Pt lives with in a 1 story home with 1+1 steps to enter. Pt states he is I with ADLs and IADLs. Transportation: Pt drives self, able to drive pt if he is not able to drive self. DME: Walker, WC, Nebulizer, Oxygen tanks, Oxygen Concentrator, pulse ox. HHC/SNF: Pt states previously used [facility], denies Hx of SNF. Pt states no concerns with going home at time of dc. JO ANN CONNER discussed HHC as well as palliative care options upon DC. Pt would like pt to receive services, pt states not sure if he is interested at this time, JO ANN CONNER will follow up with pt tomorrow. CM to follow. Advised pt to ask CM if any further question/concerns/needs arise, voices understanding. Pt Goal: Home Plan: Home, follow for HHC and palliative care. Shlomo CHERRY CM
--- NOTE | 2024-02-19 12:17 | PN.HOSP_ITS ---
Reason for Visit Reason for Visit: Diagnoses Chronic obstructive pulmonary disease with (acute) exacerbation (02/18/24) Objective Data Objective Data Vital Signs: Vital Signs Temp Pulse Resp BP Pulse Ox O2 Del Method O2 Flow Rate 96.5 F L 84 18 142/62 H 95 Nasal Cannula 2 02/19/24 08:07 02/19/24 08:07 02/19/24 08:07 02/19/24 08:07 02/19/24 08:15 02/19/24 08:28 02/19/24 08:28 FiO2 30 02/19/24 07:26 Oxygen Flow Rate (L/min) 2 Oxygen Delivery Method Nasal Cannula Weight: 200 lb 13.458 oz Body Mass Index (BMI) 31.5 Intake & Output: Intake and Output for Last 24 Hours 02/17/24 02/18/24 02/19/24 23:59 23:59 23:59 Intake Total 400 / 400 Balance 400 / 400 Lab / Micro Data 02/19/24 07:10 02/19/24 07:10 Labs: Laboratory Results - last 24 hr 02/18/24 11:55: Sodium 137, Potassium 4.3, Chloride 106, Carbon Dioxide 30.0, A nion Gap 1 L, BUN 15, Creatinine 0.90, Estim Creat Clear Calc 67.54, Est GFR (MDRD) Af Amer 104, Est GFR (MDRD) Non-Af 86, BUN/Creatinine Ratio 16.8, Glucose 155 H, Calcium 10.3 H, Troponin I High Sens 6, B-Natriuretic Peptide 3.9 02/18/24 15:23: Procalcitonin < 0.04 02/19/24 07:10: WBC 15.3 H, RBC 5.08, Hgb 15.9, Hct 48.3, MCV 95.1 H, MCH 31.3, MCHC 32.9, RDW Std Deviation 42.6, RDW Coeff of [place] 12.1, Plt Count 245, MPV 8.4, Immature Gran % (Auto) 0.700, Neut % (Auto) 88.6 H, Lymph % (Auto) 6.7 L, [place] % (Auto) 3.8, Eos % (Auto) 0.0, Baso % (Auto) 0.2, Absolute Neuts (auto) 13.6 H, Absolute Lymphs (auto) 1.03, Nucleated RBC % 0 Sodium 138, Potassium 4.0, Chloride 106, Carbon Dioxide 30.0, Anion Gap 2 L, BUN 17, Creatinine 0.80, Estim Creat Clear Calc 72.66, Est GFR (MDRD) Af Amer 117, Est GFR (MDRD) Non-Af 97, BUN/Creatinine Ratio 21.1 H, Glucose 201 H, C alcium 10.3 H, Total Bilirubin 0.30, AST 17, ALT 24, Alkaline Phosphatase 82, Total Protein 7.0, Albumin 3.7, Globulin 3.3, Albumin/Globulin Ratio 1.1 Micro: Microbiology 02/18/24 17:32 Mucosa - Nasopharyngeal Respiratory Panel (PCR) - Final ABG Data ABG results: ABG 02/18/24 12:36 Specimen Type VALERIY Sample Site Not entered O2 % 30.0 VBG pH 7.43 H VBG pO2 74 H VBG HCO3 26 VBG Total CO2 27 VBG O2 Sat (Calc) 95 H VBG Base Excess 2 POC Mix VBG pCO2 Pt Tmp 39.3 L Respiration Rate 12 O2 Delivery Device BiPAP POC PEEP 6 Radiography Diagnostic Testing: Radiology Impression Chest X-Ray 02/18/24 11:51 IMPRESSION: Mild bibasilar atelectasis, decreased from prior. Electronically Signed: Raegan Watson MD at 12:31 EDT , Physical Exam Narrative Seen and examined. Patient is stated he quit smoking in 1979. Has approximate 20 pack years of smoking. On BiPAP at night. Admitted with shortness of breath, cough, respiratory distress and wheezing consistent with COPD exacerbation Physical exam General: Alert, Oriented x3, Cooperative, BMI 31.5 kg/m? HEENT: Atraumatic, PERRLA, EOMI, Normocephalic Oral: No Gingival or Mucosal Lesions/ Ulcerations Neck: Supple, No JVD, Negative Carotid Bruits Chest wall/Lungs: Air entry severely diminished all over. Chest tightness. Bilateral expiratory rhonchi and wheezing. Cardiovascular: Regular rate, Regular Rhythm, Normal S1, Normal S2, No M/G/R Abdomen: Bowel Sounds Present, Soft, Non Tender, Non-Distended : No dysuria. No renal angle tenderness. No suprapubic tenderness. Extremities: No edema, Capillary Refill Less than 3 Seconds Skin: No rashes, No breakdown Musculoskeletal: No Tenderness to Palpation of Joints or Extremities Neurological: Cranial nerves II-XII grossly intact, DTR 2+/4. No acute focal neurological deficit. Psych/Mental Status: Normal Affect, Appropriate. Assessment & Plan Assessment/Plan (1) Acute exacerbation of chronic obstructive pulmonary disease (COPD): PLAN: Plan The patient is an 84 y/o M was admitted with shortness of breath, progressive worsening over last 2 days along with tachypnea, inability to speak in full sentences and respiratory distress. #1. Acute Hypoxic Respiratory Failure (Notable Hypoxia, requiring BIPAP transiently, tachypnea, evidence respiratory distress) secondary to Acute on Chronic COPD/asthma exacerbation: Patient is being admitted to [facility] floor. Patient follows Dr. Clark, last pulmonary visit 01/28/2024.PFT from December 26 shows a reversible moderate obstructive ventilatory impairment. 6-minute walk test in March 2023 showed significant exertional oxygen desaturation with chandler of 89% with ambulation. Patient states that he is on some kind of NIPPV possible Trelegy ventilator. Discussed with the social studies department chair to relizen with pulmonary office in order to address ventilator issue at home. Patient is being managed on scheduled bronchodilator, IV Solu-Medrol, Mucinex, incentive spirometry and Pep. Last COPD exacerbation admission in October 2023 Respiratory panel is negative. Sputum culture pending. Urinary antigens are negative. #2. Hyperglycemia: Admission glucose 155 possibly stress response, A1c pending. Glucose 201. #3. Hypercalcemia, mild: During prior presentation he had similar mild elevate with Ca 10.4 at that time. Admission Ca 10.3, patient was hydrated. Repeat calcium is 10.3 high upper normal. Vitamin D hydroxy and 125 dihydroxy and PTH pending.Serum phosphorus ordered. #4. 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 #5. Hypertension: Continue home regimen including losartan, PRN hydralazine. #6. Hyperlipidemia: Will continue patient on statin therapy. #7. Allergic rhinitis: We will continue patient home levocetirizine and nasal ipratropium regimen. #8. Former tobacco use: Encourage continued tobacco cessation. #9. BPH: We will continue patient on Flomax regimen. #10. Chronic left foot drop: Continue patient bracing, fall precautions. #11. DVT prophylaxis: Lovenox. #12. CODE status: Patient HCPOA and living will are not in place but his who is present would be his decision-maker if he was unable he notes. Discussed CODE status at length including difference between FULL code, DNR-CCA and DNR-CC status. Following discussions about the differences in these status, requested Full Code status. Advanced Care Planning Face to Face Time: 16 minutes. Charges/Coding Visit Charges Inpatient E&M: 68861 Subs Hosp L2
[2024-02-19] MEDS: Psyllium 1 PACKET PO (13:06)
[2024-02-19] MEDS: ALPRAZolam 0.25 MG Tablet PO ×2 (13:08→21:48)
[2024-02-19 13:12] LABS: Phosphorus 2.4 mg/dL (2.5-4.9)
--- NOTE | 2024-02-19 14:05 | CASEMGMT ---
RN UBALDO spoke with nurse, unclear when pt is supposed to start Lovenox. Nurse to follow up.
--- NOTE | 2024-02-19 14:26 | CASEMGMT ---
Pt screened for [facility] palliative screening tool, pt met criteria. Pt denies services at this time.
[2024-02-19 15:33] LABS: Ionized Calcium Order ORDER TUBE
--- NOTE | 2024-02-19 16:46 | NURSING ---
At 1500, CANARY BREEDER had assisted pt to bathroom and forgot that urine was needed for sample to send to lab for calcium. pt had already flushed toilet when this RN came back to see if pt had voided. This RN had then had pt return to the hospital bed and was bladder scanned for 199cc PVR. This RN bladder scanned pt since this was the first time during the 12hr shift that he had urinated. Will continue to monitor.
[2024-02-19] MEDS: Insulin Lispro 100 UNIT/ML INSULN.PEN SC ×2 (17:01→22:00)
[2024-02-19 18:25] LABS: PTHIN 86.2 pg/mL (18.4-80.1)
[2024-02-19] MEDS: MELATONIN 3 MG TABLET PO (21:48)
[2024-02-19] MEDS: Tamsulosin HCl 0.4 MG Capsule PO (21:49)
[2024-02-19] MEDS: Loratadine 10 MG Tablet PO (21:49)
[2024-02-19] MEDS: Losartan Potassium 50 MG Tablet PO (21:50)
[2024-02-19 21:53] LABS: Bedside Glucose 216 mg/dL (74-106)
[2024-02-19] MEDS: Latanoprost 0.005% 1 Bottle 1 DRP EACH EYE (21:57)
[2024-02-19 22:45] LABS: Bedside Glucose 215 mg/dL (74-106)
[2024-02-20] VITALS (12 sets, daily range): BP systolic 120–143; BP diastolic 64–81; PULSE 62–102; RESP 12–18; TEMP 36.5–36.6; O2SAT 95–97; BMI 31.5
[2024-02-20] MEDS: 0.9% Saline Lock 10 ML Syringe IV (06:12)
[2024-02-20] MEDS: Psyllium 1 PACKET PO ×3 (06:13→21:37)
[2024-02-20] MEDS: Insulin Lispro 100 UNIT/ML INSULN.PEN SC ×4 (06:15→21:38)
[2024-02-20 06:40] LABS: Bedside Glucose 214 mg/dL (74-106)
[2024-02-20] MEDS: ALPRAZolam 0.25 MG Tablet PO ×2 (07:09→23:46)
[2024-02-20] MEDS: Ipratropium/Albuterol Sulfate 3 ML AMPUL.NEB INHALATION ×5 (07:36→23:12)
[2024-02-20] MEDS: guaiFENesin 1,200 MG Tablet 1200 MG PO ×2 (09:57→21:37)
[2024-02-20] MEDS: Enoxaparin 40 MG/0.4 ML Syringe SC (09:57)
[2024-02-20] MEDS: Clopidogrel Bisulfate 75 MG Tablet PO (09:57)
--- NOTE | 2024-02-20 11:36 | CASEMGMT ---
Addendum entered by Sydney Riojas 02/20/24 13:18: Received tc from [facility], they are able to accept pt for services on Friday. Updated dc plan and pt aware. Addendum entered by Sydney Riojas 02/20/24 11:42: Pt is not agreeable to therapy at home currently. Original Note: RN CM into pt room, pt at bedside. Pt states he is agreeable to [facility] now and would prefer [facility]. He states he has a list from a previous admission and declines the need for a list of options now. Pt states he is agreeable to Palliative Care as well. Pt requesting information on AD, provided her with the AD rack card. TC to Uma at [facility], referral made will await acceptance. Referral emailed to palliative care at this time.
[2024-02-20 11:56] LABS: Bedside Glucose 262 mg/dL (74-106)
--- NOTE | 2024-02-20 12:52 | PN.HOSP_ITS ---
Reason for Visit Reason for Visit: Diagnoses Chronic obstructive pulmonary disease with (acute) exacerbation (02/18/24) Objective Data Objective Data Vital Signs: Vital Signs Temp Pulse Resp BP Pulse Ox O2 Del Method O2 Flow Rate 97.9 F 75 16 130/81 H 97 Nasal Cannula 2 02/20/24 08:41 02/20/24 11:48 02/20/24 11:48 02/20/24 08:41 02/20/24 08:41 02/20/24 08:46 02/20/24 08:46 FiO2 30 02/20/24 01:02 Oxygen Flow Rate (L/min) 2 Oxygen Delivery Method Nasal Cannula Weight: 200 lb 13.458 oz Body Mass Index (BMI) 31.5 Intake & Output: Intake and Output for Last 24 Hours 02/18/24 02/19/24 02/20/24 23:59 23:59 23:59 Intake Total 400 / 400 640 / 640 Output Total 300 / 300 Balance 400 / 400 340 / 340 Lab / Micro Data 02/19/24 07:10 02/19/24 07:10 Labs: Laboratory Results - last 24 hr 02/19/24 07:10: Hemoglobin A1c 6.0 H, Phosphorus 2.4 L, Vitamin D 25-Hydroxy 101.0, PTH Intact 86.2 H 02/19/24 16:54: POC Glucose 216 H 02/19/24 21:59: POC Glucose 215 H 02/19/24 22:30: Ur Random Calcium 27.0 02/20/24 06:14: POC Glucose 214 H 02/20/24 11:38: POC Glucose 262 H Micro: Microbiology 02/19/24 08:40 Sputum, Expectorated/Coughed Gram Stain - Final 02/19/24 08:40 Sputum, Expectorated/Coughed Respiratory Culture - Preliminary Appears to be normal respiratory jean. Further studies to follow. 02/18/24 17:32 Mucosa - Nasopharyngeal Respiratory Panel (PCR) - Final Physical Exam Narrative Seen and examined. Patient is still gets short of breath on mild exertion although better than yesterday. Asking for prescription for Pulmicort for nebulization machine Patient is stated he quit smoking in 1979. Has approximate 20 pack years of smoking. On BiPAP at night. Admitted with shortness of breath, cough, respiratory distress and wheezing consistent with COPD exacerbation Physical exam General: Alert, Oriented x3, Cooperative, BMI 31.5 kg/m? HEENT: Hearing impairment. Atraumatic, PERRLA, EOMI, Normocephalic Oral: No Gingival or Mucosal Lesions/ Ulcerations Neck: Supple, No JVD, Negative Carotid Bruits Chest wall/Lungs: Air entry improved bilaterally compared to yesterday. Decreased bilateral rhonchi. Dyspnea on exertion is still present Cardiovascular: Regular rate, Regular Rhythm, Normal S1, Normal S2, No M/G/R Abdomen: Bowel Sounds Present, Soft, Non Tender, Non-Distended : No dysuria. No renal angle tenderness. No suprapubic tenderness. Extremities: No edema, Capillary Refill Less than 3 Seconds Skin: No rashes, No breakdown Musculoskeletal: No Tenderness to Palpation of Joints or Extremities Neurological: Cranial nerves II-XII grossly intact, DTR 2+/4. No acute focal neurological deficit. Psych/Mental Status: Normal Affect, Appropriate. Assessment & Plan Assessment/Plan (1) Acute exacerbation of chronic obstructive pulmonary disease (COPD): PLAN: Plan The patient is an 84 y/o M was admitted with shortness of breath, progressive worsening over last 2 days along with tachypnea, inability to speak in full sentences and respiratory distress. #1. Acute Hypoxic Respiratory Failure (Notable Hypoxia, requiring BIPAP transiently, tachypnea, evidence respiratory distress) secondary to Acute on Chronic COPD/asthma exacerbation: [facility] Patient follows Dr. Clark, last pulmonary visit 01/28/2024.PFT from December 26 shows a reversible moderate obstructive ventilatory impairment. 6-minute walk test in March 2023 showed significant exertional oxygen desaturation with chandler of 89% with ambulation. Patient states that he is on some kind of NIPPV possible Trelegy ventilator. Discussed with the social media community manager to relizen with pulmonary office in order to address ventilator issue at home. Patient is being managed on scheduled bronchodilator, IV Solu-Medrol, Mucinex, incentive spirometry and Pep. Last COPD exacerbation admission in October 2023 Respiratory panel is negative. Sputum culture pending. Urinary antigens are negative. 02/19: Prelim sputum culture growing 1+ GNR, 1+ GPC, 4+ WBC appears to be normal respiratory jean. On Zithromax. #2. Hyperglycemia: Admission glucose 155 possibly stress response, A1c pending. Glucose 201. 02/19: glucose is high therefore started on Humalog and Lantus insulin as scheduled. A1c 6.0, prediabetes range. #3. Hypercalcemia, mild: During prior presentation he had similar mild elevate with Ca 10.4 at that time. Admission Ca 10.3, patient was hydrated. Repeat calcium is 10.3 high upper normal. Vitamin D hydroxy and 125 dihydroxy and PTH pending.Serum phosphorus ordered. 02/19: Phosphorus low. Serum calcium low normal. Vitamin D hydroxy 101Patient might have decreased calcium and phosphorus absorption. PTH intact 86.2 just above normal range. #4. 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 #5. Hypertension: Continue home regimen including losartan, PRN hydralazine. #6. Hyperlipidemia: Will continue patient on statin therapy. #7. Allergic rhinitis: We will continue patient home levocetirizine and nasal ipratropium regimen. #8. Former tobacco use: Encourage continued tobacco cessation. #9. BPH: We will continue patient on Flomax regimen. #10. Chronic left foot drop: Continue patient bracing, fall precautions. #11. DVT prophylaxis: Lovenox. #12. CODE status: Patient HCPOA and living will are not in place but his who is present would be his decision-maker if he was unable he notes. Discussed CODE status at length including difference between FULL code, DNR-CCA and DNR-CC status. Following discussions about the differences in these status, requested Full Code status. Advanced Care Planning Face to Face Time: 16 minutes. Microbiology Past 72 Hours 02/19/24 08:40 Sputum, Expectorated/Coughed Gram Stain - Final 02/19/24 08:40 Sputum, Expectorated/Coughed Respiratory Culture - Preliminary Appears to be normal respiratory jean. Further studies to follow. 02/18/24 17:32 Mucosa - Nasopharyngeal Respiratory Panel (PCR) - Final Laboratory Results 02/19/24 07:10: Hemoglobin A1c 6.0 H, Phosphorus 2.4 L, Vitamin D 25-Hydroxy 101.0, PTH Intact 86.2 H 02/19/24 16:54: POC Glucose 216 H 02/19/24 21:59: POC Glucose 215 H 02/19/24 22:30: Ur Random Calcium 27.0 02/20/24 06:14: POC Glucose 214 H 02/20/24 11:38: POC Glucose 262 H Clinical Impression(s) from Imaging Studies Chest X-Ray 02/18/24 11:51 IMPRESSION: Mild bibasilar atelectasis, decreased from prior. Charges/Coding Visit Charges Inpatient E&M: 48991 Subs Hosp L2
[2024-02-20] MEDS: Insulin Glargine-YFGN 100 UNIT/ML Pen 10 UNIT SC (13:52)
[2024-02-20] MEDS: Azithromycin 250 MG Tablet 500 MG PO (13:53)
[2024-02-20 15:00] LABS: Ionized Calcium 5.46 mg/dL (4.36-5.20)
[2024-02-20 16:17] LABS: Bedside Glucose 283 mg/dL (74-106)
[2024-02-20] MEDS: Insulin Lispro 100 UNIT/ML INSULN.PEN 6 UNIT SC (16:32)
[2024-02-20] MEDS: Ipratropium Bromide 0.06% NASAL SPRAY 2 SPRAY NASAL (21:32)
[2024-02-20] MEDS: Losartan Potassium 50 MG Tablet PO (21:37)
[2024-02-20] MEDS: Loratadine 10 MG Tablet PO (21:37)
[2024-02-20] MEDS: Latanoprost 0.005% 1 Bottle 1 DRP EACH EYE (21:37)
[2024-02-20] MEDS: Tamsulosin HCl 0.4 MG Capsule PO (21:37)
[2024-02-20] MEDS: Timolol 0.5% 5ML OPTH.BTL 1 DRP OPHTHALMIC (21:48)
[2024-02-20 23:11] LABS: Bedside Glucose 224 mg/dL (74-106)
[2024-02-20] MEDS: MELATONIN 3 MG TABLET PO (23:46)
[2024-02-21] VITALS (10 sets, daily range): BP systolic 121–145; BP diastolic 75–96; PULSE 79–102; RESP 16–24; TEMP 35.9–36.6; O2SAT 83–96
[2024-02-21] MEDS: Psyllium 1 PACKET PO ×3 (06:33→20:56)
[2024-02-21] MEDS: Insulin Lispro 100 UNIT/ML INSULN.PEN 6 UNIT SC ×3 (06:39→16:55)
[2024-02-21] MEDS: Insulin Lispro 100 UNIT/ML INSULN.PEN SC ×4 (06:39→20:57)
[2024-02-21 07:06] LABS: Bedside Glucose 220 mg/dL (74-106)
[2024-02-21] MEDS: Ipratropium/Albuterol Sulfate 3 ML AMPUL.NEB INHALATION ×4 (07:15→19:51)
[2024-02-21] MEDS: Enoxaparin 40 MG/0.4 ML Syringe SC (09:25)
[2024-02-21] MEDS: Clopidogrel Bisulfate 75 MG Tablet PO (09:26)
[2024-02-21] MEDS: Timolol 0.5% 5ML OPTH.BTL 1 DRP OPHTHALMIC ×2 (09:26→20:57)
[2024-02-21] MEDS: Azithromycin 250 MG Tablet 500 MG PO (09:26)
[2024-02-21] MEDS: Ipratropium Bromide 0.06% NASAL SPRAY 2 SPRAY NASAL ×2 (09:26→20:54)
[2024-02-21] MEDS: guaiFENesin 1,200 MG Tablet 1200 MG PO ×2 (09:26→20:56)
[2024-02-21] MEDS: Insulin Glargine-YFGN 100 UNIT/ML Pen 10 UNIT SC (09:32)
--- NOTE | 2024-02-21 11:40 | PN.HOSP_ITS ---
Reason for Visit Reason for Visit: Diagnoses Chronic obstructive pulmonary disease with (acute) exacerbation (02/18/24) Objective Data Objective Data Vital Signs: Vital Signs Temp Pulse Resp BP Pulse Ox O2 Del Method O2 Flow Rate 96.7 F L 102 H 24 H 124/75 H 94 Nasal Cannula 2 02/21/24 09:25 02/21/24 11:17 02/21/24 11:17 02/21/24 09:25 02/21/24 09:25 02/21/24 09:25 02/21/24 09:25 FiO2 30 02/20/24 23:19 Oxygen Flow Rate (L/min) 2 Oxygen Delivery Method Nasal Cannula Weight: 200 lb 13.458 oz Body Mass Index (BMI) 31.5 Intake & Output: Intake and Output for Last 24 Hours 02/19/24 02/20/24 02/21/24 23:59 23:59 23:59 Intake Total 640 / 640 Output Total 300 / 300 Balance 340 / 340 Lab / Micro Data 02/19/24 07:10 02/19/24 07:10 Labs: Laboratory Results - last 24 hr 02/19/24 07:10: Ionized Calcium 5.46 H 02/20/24 07:10: Ionized Calcium Cancelled 02/20/24 11:38: POC Glucose 262 H 02/20/24 15:56: POC Glucose 283 H 02/20/24 21:36: POC Glucose 224 H 02/21/24 06:38: POC Glucose 220 H Micro: Microbiology 02/19/24 08:40 Sputum, Expectorated/Coughed Gram Stain - Final 02/19/24 08:40 Sputum, Expectorated/Coughed Respiratory Culture - Final 02/18/24 17:32 Mucosa - Nasopharyngeal Respiratory Panel (PCR) - Final Physical Exam Narrative Seen and examined. As per he was confused last night. He also looks short of breath and feels worse than yesterday. PT and OT ordered Talk to the Patient is stated he quit smoking in 1979. Has approximate 20 pack years of smoking. On BiPAP at night. Admitted with shortness of breath, cough, respiratory distress and wheezing consistent with COPD exacerbation Physical exam General: Alert, Oriented x3, Cooperative, BMI 31.5 kg/m? HEENT: Hearing impairment. Atraumatic, PERRLA, EOMI, Normocephalic Oral: No Gingival or Mucosal Lesions/ Ulcerations Neck: Supple, No JVD, Negative Carotid Bruits Chest wall/Lungs: Air entry decreased bilaterally. Decreased bilateral rhonchi. Dyspnea on exertion is still present Cardiovascular: Regular rate, Regular Rhythm, Normal S1, Normal S2, No M/G/R Abdomen: Bowel Sounds Present, Soft, Non Tender, Non-Distended : No dysuria. No renal angle tenderness. No suprapubic tenderness. Extremities: No edema, Capillary Refill Less than 3 Seconds Skin: No rashes, No breakdown Musculoskeletal: No Tenderness to Palpation of Joints or Extremities Neurological: Cranial nerves II-XII grossly intact, DTR 2+/4. No acute focal neurological deficit. Psych/Mental Status: Normal Affect, Appropriate. Assessment & Plan Assessment/Plan (1) Acute exacerbation of chronic obstructive pulmonary disease (COPD): PLAN: Plan The patient is an 84 y/o M was admitted with shortness of breath, progressive worsening over last 2 days along with tachypnea, inability to speak in full sentences and respiratory distress. #1. Acute Hypoxic Respiratory Failure (Notable Hypoxia, requiring BIPAP transiently, tachypnea, evidence respiratory distress) secondary to Acute on Chronic COPD/asthma exacerbation: Patient is being admitted to [facility] floor. Patient follows Dr. Clark, last pulmonary visit 01/28/2024.PFT from December 26 shows a reversible moderate obstructive ventilatory impairment. 6-minute walk test in March 2023 showed significant exertional oxygen desaturation with chandler of 89% with ambulation. Patient states that he is on some kind of NIPPV possible Trelegy ventilator. Discussed with the social media marketing analyst to relizen with pulmonary office in order to address ventilator issue at home. Patient is being managed on scheduled bronchodilator, IV Solu-Medrol, Mucinex, incentive spirometry and Pep. Last COPD exacerbation admission in October 2023 Respiratory panel is negative. Sputum culture pending. Urinary antigens are negative. 02/19: Prelim sputum culture growing 1+ GNR, 1+ GPC, 4+ WBC appears to be normal respiratory jean. On Zithromax. 02/20: I talked to the patient's . She said he was little confused probably from the Xanax. He has been very weak at home and he sleeps all day at home and does not want to do anything. PT and OT ordered. Patient looks dyspnea at rest and pauses while conversation therefore no plan for discharge. Continue above treatment. #2. Hyperglycemia: Admission glucose 155 possibly stress response, A1c pending. Glucose 201. 02/19: glucose is high therefore started on Humalog and Lantus insulin as scheduled. A1c 6.0, prediabetes range. #3. Hypercalcemia, mild: During prior presentation he had similar mild elevate with Ca 10.4 at that time. Admission Ca 10.3, patient was hydrated. Repeat calcium is 10.3 high upper normal. Vitamin D hydroxy and 125 dihydroxy and PTH pending.Serum phosphorus ordered. 02/19: Phosphorus low. Serum calcium low normal. Vitamin D hydroxy 101Patient might have decreased calcium and phosphorus absorption. PTH intact 86.2 just above normal range. #4. 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 #5. Hypertension: Continue home regimen including losartan, PRN hydralazine. #6. Hyperlipidemia: Will continue patient on statin therapy. #7. Allergic rhinitis: We will continue patient home levocetirizine and nasal ipratropium regimen. #8. Former tobacco use: Encourage continued tobacco cessation. #9. BPH: We will continue patient on Flomax regimen. #10. Chronic left foot drop: Continue patient bracing, fall precautions. #11. DVT prophylaxis: Lovenox. #12. CODE status: Patient HCPOA and living will are not in place but his who is present would be his decision-maker if he was unable he notes. Discussed CODE status at length including difference between FULL code, DNR-CCA and DNR-CC status. Following discussions about the differences in these status, requested Full Code status. Advanced Care Planning Face to Face Time: 16 minutes. Microbiology Past 72 Hours 02/19/24 08:40 Sputum, Expectorated/Coughed Gram Stain - Final 02/19/24 08:40 Sputum, Expectorated/Coughed Respiratory Culture - Preliminary Appears to be normal respiratory jean. Further studies to follow. 02/18/24 17:32 Mucosa - Nasopharyngeal Respiratory Panel (PCR) - Final Laboratory Results 02/19/24 07:10: Hemoglobin A1c 6.0 H, Phosphorus 2.4 L, Vitamin D 25-Hydroxy 101.0, PTH Intact 86.2 H 02/19/24 16:54: POC Glucose 216 H 02/19/24 21:59: POC Glucose 215 H 02/19/24 22:30: Ur Random Calcium 27.0 02/20/24 06:14: POC Glucose 214 H 02/20/24 11:38: POC Glucose 262 H Clinical Impression(s) from Imaging Studies Chest X-Ray 02/18/24 11:51 IMPRESSION: Mild bibasilar atelectasis, decreased from prior. Charges/Coding Visit Charges Inpatient E&M: 28716 Subs Hosp L2
[2024-02-21 12:02] LABS: Bedside Glucose 167 mg/dL (74-106)
[2024-02-21] MEDS: 0.9% Saline Lock 10 ML Syringe IV ×2 (13:32→20:53)
[2024-02-21 17:17] LABS: Bedside Glucose 156 mg/dL (74-106)
[2024-02-21] MEDS: Tamsulosin HCl 0.4 MG Capsule PO (20:56)
[2024-02-21] MEDS: Losartan Potassium 50 MG Tablet PO (20:56)
[2024-02-21] MEDS: Loratadine 10 MG Tablet PO (20:56)
[2024-02-21] MEDS: Latanoprost 0.005% 1 Bottle 1 DRP EACH EYE (21:03)
[2024-02-21 21:59] LABS: Bedside Glucose 169 mg/dL (74-106)
[2024-02-22] VITALS (10 sets, daily range): BP systolic 103–152; BP diastolic 72–88; PULSE 60–88; RESP 12–22; TEMP 36.3–36.9; O2SAT 85–97; BMI 31.7
[2024-02-22] MEDS: MELATONIN 3 MG TABLET PO (00:14)
[2024-02-22] MEDS: BENZOCAINE/MENTHOL 1 LOZENGE MUCOUS MEM (00:14)
[2024-02-22] MEDS: Psyllium 1 PACKET PO (06:07)
[2024-02-22] MEDS: 0.9% Saline Lock 10 ML Syringe IV (06:07)
[2024-02-22] MEDS: Timolol 0.5% 5ML OPTH.BTL 1 DRP OPHTHALMIC (06:16)
[2024-02-22] MEDS: Ipratropium/Albuterol Sulfate 3 ML AMPUL.NEB INHALATION ×2 (07:43→11:13)
[2024-02-22] MEDS: Azithromycin 250 MG Tablet 500 MG PO (08:37)
[2024-02-22] MEDS: Enoxaparin 40 MG/0.4 ML Syringe SC (08:37)
[2024-02-22] MEDS: Ipratropium Bromide 0.06% NASAL SPRAY 2 SPRAY NASAL (08:37)
[2024-02-22] MEDS: Clopidogrel Bisulfate 75 MG Tablet PO (08:38)
[2024-02-22] MEDS: Insulin Glargine-YFGN 100 UNIT/ML Pen 10 UNIT SC (08:38)
[2024-02-22] MEDS: guaiFENesin 1,200 MG Tablet 1200 MG PO (08:38)
[2024-02-22] MEDS: Insulin Lispro 100 UNIT/ML INSULN.PEN SC (08:38)
[2024-02-22] MEDS: Insulin Lispro 100 UNIT/ML INSULN.PEN 6 UNIT SC (08:39)
[2024-02-22 09:15] LABS: Bedside Glucose 172 mg/dL (74-106)
--- NOTE | 2024-02-22 09:34 | PCM.DC.SUM ---
Providers Date of Admission: 02/18/24 Date of Discharge: 02/22/24 Primary Care Physician: Dr. Jessica Santiago DO Reason For Visit: ACUTE RESP FAILURE, COPD EXAC Diagnosis Discharge Diagnosis (1) Acute exacerbation of chronic obstructive pulmonary disease (COPD): Status: Chronic Code(s): J44.1 - Chronic obstructive pulmonary disease with (acute) exacerbation Plan The patient is an 84 y/o M was admitted with shortness of breath, progressive worsening over last 2 days along with tachypnea, inability to speak in full sentences and respiratory distress. #1. Acute Hypoxic Respiratory Failure (Notable Hypoxia, requiring BIPAP transiently, tachypnea, evidence respiratory distress) secondary to Acute on Chronic COPD/asthma exacerbation: [facility] Patient follows Dr. Clark, last pulmonary visit 01/28/2024.PFT from December 26 shows a reversible moderate obstructive ventilatory impairment. 6-minute walk test in March 2023 showed significant exertional oxygen desaturation with chandler of 89% with ambulation. Patient states that he is on some kind of NIPPV possible Trelegy ventilator. Discussed with the oncology social worker to relizen with pulmonary office in order to address ventilator issue at home. Patient is being managed on scheduled bronchodilator, IV Solu-Medrol, Mucinex, incentive spirometry and Pep. Last COPD exacerbation admission in October 2023 Respiratory panel is negative. Sputum culture pending. Urinary antigens are negative. 02/19: Prelim sputum culture growing 1+ GNR, 1+ GPC, 4+ WBC appears to be normal respiratory jean. On Zithromax. 02/20: I talked to the patient's . She said he was little confused probably from the Xanax. He has been very weak at home and he sleeps all day at home and does not want to do anything. PT and OT ordered. Patient looks dyspnea at rest and pauses while conversation therefore no plan for discharge. Continue above treatment. 02/21: Patient on 2 L of oxygen. Patient 91% at rest on room air yesterday, patient 83% ambulating on room air, 93% on 4 L of oxygen. She is patient denies today's breathing is much better. Lung sounds better air entry and air exchange. Currently on 2 L of oxygen. Patient is discharged on Pulmicort nebulization, prednisone burst therapy and Mucinex and advised to follow-up with pulmonary office in 2 weeks. #2. Hyperglycemia: Admission glucose 155 possibly stress response, A1c pending. Glucose 201. 02/19: glucose is high therefore started on Humalog and Lantus insulin as scheduled. A1c 6.0, prediabetes range. #3. Hypercalcemia, mild: During prior presentation he had similar mild elevate with Ca 10.4 at that time. Admission Ca 10.3, patient was hydrated. Repeat calcium is 10.3 high upper normal. Vitamin D hydroxy and 125 dihydroxy and PTH pending.Serum phosphorus ordered. 02/19: Phosphorus low. Serum calcium low normal. Vitamin D hydroxy 101Patient might have decreased calcium and phosphorus absorption. PTH intact 86.2 just above normal range. #4. 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 #5. Hypertension: Continue home regimen including losartan, PRN hydralazine. #6. Hyperlipidemia: Will continue patient on statin therapy. #7. Allergic rhinitis: We will continue patient home levocetirizine and nasal ipratropium regimen. #8. Former tobacco use: Encourage continued tobacco cessation. #9. BPH: We will continue patient on Flomax regimen. #10. Chronic left foot drop: Continue patient bracing, fall precautions. #11. DVT prophylaxis: Lovenox. #12. CODE status: Patient HCPOA and living will are not in place but his who is present would be his decision-maker if he was unable he notes. Discussed CODE status at length including difference between FULL code, DNR-CCA and DNR-CC status. Following discussions about the differences in these status, requested Full Code status. Discharge medication reconciliation done. Discharge follow-up instructions completed. Discharge process discussed with the patient and all questions were answered to patient's satisfaction. Follow with PCP in 1 to 2 weeks Total time spent, exact 35 minutes on discharge meds reconciliation, examination, coordination of care with nurses and ancillary staff, review of imaging and blood test and discussion with the patient on follow-up instructions. Microbiology Past 72 Hours 02/19/24 08:40 Sputum, Expectorated/Coughed Gram Stain - Final 02/19/24 08:40 Sputum, Expectorated/Coughed Respiratory Culture - Preliminary Appears to be normal respiratory jean. Further studies to follow. 02/18/24 17:32 Mucosa - Nasopharyngeal Respiratory Panel (PCR) - Final Laboratory Results 02/19/24 07:10: Hemoglobin A1c 6.0 H, Phosphorus 2.4 L, Vitamin D 25-Hydroxy 101.0, PTH Intact 86.2 H 02/19/24 16:54: POC Glucose 216 H 02/19/24 21:59: POC Glucose 215 H 02/19/24 22:30: Ur Random Calcium 27.0 02/20/24 06:14: POC Glucose 214 H 02/20/24 11:38: POC Glucose 262 H Clinical Impression(s) from Imaging Studies Chest X-Ray 02/18/24 11:51 IMPRESSION: Mild bibasilar atelectasis, decreased from prior. Medications at Discharge Home Medications clopidogrel 75 mg tablet 75 mg PO DAILY blood thinner 05/23/20 ergocalciferol (vitamin D2) 1,250 mcg (50,000 unit) capsule 1,250 mcg PO UD Check with primary doctor 01/24/23 ipratropium 20 mcg-albuterol 100 mcg/actuation mist for inhalation (Combivent Respimat) 2 puff inhalation Q6H COPD 01/24/23 latanoprost 0.005 % eye drops 1 drp EACH EYE QHS Check with primary doctor 01/24/23 losartan 50 mg tablet 50 mg PO DAILY high blood pressure 01/24/23 pravastatin 40 mg tablet 40 mg PO DAILY 01/24/23 tamsulosin 0.4 mg capsule 0.4 mg PO QHS Check with primary doctor 01/24/23 albuterol sulfate 90 mcg/actuation aerosol inhaler 2 puff inhalation Q6H PRN shortness of breath or wheezing #8.5 grams 01/25/23 timolol maleate 0.5 % eye drops 1 drp ophthalmic (eye) Q12H 10/19/23 budesonide-formoterol HFA 160 mcg-4.5 mcg/actuation aerosol inhaler (Symbicort) 2 puff inhalation BID #10.2 grams 12/17/23 Nebulizer machine #1 ea 12/22/23 ipratropium 0.5 mg-albuterol 3 mg (2.5 mg base)/3 mL nebulization soln 3 ml inhalation Q4H PRN PRN SOB &/OR WHEEZING #180 mL 12/22/23 hydrocortisone 2.5 % topical cream 1 applic topical DAILY PRN itching 02/18/24 ipratropium bromide 21 mcg (0.03 %) nasal spray 2 spray intranasal BID 02/18/24 levocetirizine 5 mg tablet 5 mg PO QHS 02/18/24 budesonide 0.5 mg/2 mL suspension for nebulization (Pulmicort) 0.5 mg (2 mL) inhalation DAILY 1 month #60 mL 02/20/24 guaifenesin 1,200 mg tablet, extended release 12 hr 1,200 mg PO Q12H 7 days #14 tabs 02/21/24 prednisone 20 mg tablet 40 mg (2 x 20 mg) PO DAILY 5 days #10 tabs 02/21/24 psyllium husk (aspartame) 3 gram oral powder packet (Daily Fiber (psyllium-aspartame)) 1 packet PO TID PRN constipation #0 ea 02/21/24 Physical Exam Narrative Seen and examined. Patient is awake alert oriented x 3. Had 2 bowel movements. Feeling much better than yesterday. Wants to go home. Patient is stated he quit smoking in 1979. Has approximate 20 pack years of smoking. On BiPAP at night. Physical exam General: Alert, Oriented x3, Cooperative, BMI 31.5 kg/m? HEENT: Hearing impairment. Atraumatic, PERRLA, EOMI, Normocephalic Oral: No Gingival or Mucosal Lesions/ Ulcerations Neck: Supple, No JVD, Negative Carotid Bruits Chest wall/Lungs: Air entry bilateral increased. Mild bilateral expiratory rhonchi. No dyspnea at rest. Cardiovascular: Regular rate, Regular Rhythm, Normal S1, Normal S2, No M/G/R Abdomen: Bowel Sounds Present, Soft, Non Tender, Non-Distended : No dysuria. No renal angle tenderness. No suprapubic tenderness. Extremities: No edema, Capillary Refill Less than 3 Seconds Skin: No rashes, No breakdown Musculoskeletal: No Tenderness to Palpation of Joints or Extremities Neurological: Cranial nerves II-XII grossly intact, DTR 2+/4. No acute focal neurological deficit. Psych/Mental Status: Normal Affect, Appropriate. Weight / BMI Weight Weight: 202 lb 2.622 oz Body Mass Index (BMI) 31.7 ABG / Lab / Microbiology Data 02/19/24 07:10 02/19/24 07:10 Laboratory: Laboratory Results - last 24 hr 02/21/24 11:32: POC Glucose 167 H 02/21/24 16:53: POC Glucose 156 H 02/21/24 20:52: POC Glucose 169 H 02/22/24 08:32: POC Glucose 172 H Microbiology: Microbiology 02/19/24 08:40 Sputum, Expectorated/Coughed Gram Stain - Final 02/19/24 08:40 Sputum, Expectorated/Coughed Respiratory Culture - Final 02/18/24 17:32 Mucosa - Nasopharyngeal Respiratory Panel (PCR) - Final D/C Instructions Discharge Diet: 2000 mg Sodium Diet Weight Bearing Status: Weight bearing as tolerated Call your doctor if you observe: Fever of 101 or Higher, Coldness, Increased Pain, Numbness or Tingling, Change in Color, Inability to urinate, Inability to have a bowel movement, Shortness of breath, Dizziness, Fainting spells, Swelling in the ankles, Chest pain, Prolonged hiccupping, Increased palpitations (irregular heartbeat) and Calf discomfort When: IN 2 WEEKS Meaningful Use Info Meaningful Use Meaningful Use Diagnoses (Choose all that apply): None applicable Ischemic Stroke Statin Dosing Therapy Reference: STATIN DOSE THERAPY REFERENCE: * Patients > 75 years receive moderate or high dose statin therapy. * Patients 75 years or YOUNGER should receive HIGH intensity statin dose unless contraindicated. You will be required to document reason for non-treatment if statin daily dose does not meet guidelines. HIGH DOSE STATIN THERAPY DAILY Atorvastatin > than or = to 40 mg Rosuvastatin > than or = to 20 mg Amlodipine + Atorvastatin > than or = to 2.5/40 mg Ezetimibe + Simvastatin 10/80 mg Simvastatin 80mg Discharge Plan Admission Admit Date/Time: 02/18/24 15:11 Attending Provider: Adi Grady Primary Care Provider: Jessica Santiago Consulting Providers: Macey Arevalo Discharge Orders/Prescriptions Prescriptions: New budesonide [Pulmicort] 0.5 mg/2 mL suspension for nebulization 0.5 mg inhalation DAILY 30 Days Qty: 60 0RF Daily Fiber (psyllium-aspart) 3 gram Powder In Packet 1 packet PO TID PRN (Reason: constipation) Qty: 0 0RF prednisone 20 mg tablet 40 mg PO DAILY 5 Days Qty: 10 0RF Continued clopidogrel 75 MG tablet 75 mg PO DAILY losartan 50 mg tablet 50 mg PO DAILY Patient Comments: TAKE 1 TABLET BY MOUTH DAILY latanoprost 0.005 % drops 1 drp EACH EYE QHS Patient Comments: Instill 1 drop into both eyes once a day pravastatin 40 mg tablet 40 mg PO DAILY Patient Comments: TAKE 1 TABLET BY MOUTH EVERY DAY tamsulosin 0.4 mg capsule 0.4 mg PO QHS Patient Comments: TAKE 1 CAPSULE BY MOUTH AT BEDTIME ergocalciferol (vitamin D2) 1,250 mcg (50,000 unit) capsule 1,250 mcg PO UD Patient Comments: TAKE 1 CAPSULE BY MOUTH twice a week Rx Instructions: 2x/week takes on and saturdays Combivent Respimat 20-100 mcg/actuation Mist 2 puff INHALATION Q6H Patient Comments: 25 mcg/100 mcg in medicatio bag albuterol sulfate 90 mcg/actuation HFA aerosol inhaler 2 puff inhalation Q6H PRN (Reason: shortness of breath or wheezing) Qty: 8.5 0RF timolol maleate 0.5 % drops 1 drp ophthalmic (eye) Q12H Patient Comments: Instill 1 drop in both eyes twice a day ipratropium bromide 21 mcg (0.03 %) spray,non-aerosol 2 spray INTRANASAL BID levocetirizine 5 mg tablet 5 mg PO QHS hydrocortisone 2.5 % cream 1 applic topical DAILY PRN (Reason: itching) guaifenesin 1,200 mg tablet extended release 12hr 1,200 mg PO Q12H 7 Days Qty: 14 6RF budesonide-formoterol [Symbicort] 160-4.5 mcg/actuation HFA aerosol inhaler 2 puff inhalation BID Qty: 10.2 6RF (DME) Nebulizer machine See Rx Instructions .ROUTE .MEDSUPPLY Qty: 1 0RF Rx Instructions: As directed ipratropium-albuterol 0.5 mg-3 mg(2.5 mg base)/3 mL solution for nebulization 3 ml inhalation Q4H PRN PRN (Reason: SOB &/OR WHEEZING) Qty: 180 6RF Referrals / Follow Up: Killian Clark DO [Med Staff - Active Staff] - Within 1 Month Jessica Santiago DO [Primary Care Provider] - Within 2 Weeks Charges/Coding Visit Charges Inpatient E&M: 97980 Disch Hosp >30min
== END 2024-02-22 11:38 | disposition home health service (06) | DRG 190 ==
LOC: ED 13:12 → MS3 15:21
PROVIDERS: Admitting Provider Family Medicine; Emergency Provider Emergency Medicine; PCP Family Medicine; Visit Provider Internal Medicine
DX: J44.1 Chronic obstructive pulmonary disease with (acute) exacerbation (principal); J96.01 Acute respiratory failure with hypoxia; I69.353 Hemiplegia and hemiparesis following cerebral infarction affecting right non-dominant side; I10 Essential (primary) hypertension; J30.9 Allergic rhinitis, unspecified; E83.52 Hypercalcemia; E78.5 Hyperlipidemia, unspecified; R73.9 Hyperglycemia, unspecified; N40.0 Benign prostatic hyperplasia without lower urinary tract symptoms; Z79.51 Long term (current) use of inhaled steroids; Z79.02 Long term (current) use of antithrombotics/antiplatelets; Z79.899 Other long term (current) drug therapy; Z87.891 Personal history of nicotine dependence
CPT/HCPCS: 36415; 71045; 80048; 80053; 82306; 82330; 82340; 82652; 82803; 82962; 83036; 83880; 83970; 84100; 84145; 84484; 85025; 87070; 87205; 87633; 93005; 94002; 94003; 94640; 94668; 94762; 97162; 97165; 99285; A4216

== ENCOUNTER 2024-03-19 17:20 | Inpatient (IN) | payer MEDICARE, OTHER, SELFPAY ==
[2024-03-19] VITALS (12 sets, daily range): BP systolic 128–149; BP diastolic 88–106; PULSE 51–110; RESP 13–26; TEMP 36–36.6; O2SAT 93–97; BMI 32.8; BMI 34.4
--- NOTE | 2024-03-19 17:40 | EKG12_ITS ---
Test Reason : SOB Blood Pressure : / mmHG Vent. Rate : 114 BPM Atrial Rate : 000 BPM P-R Int : 000 ms QRS Dur : 062 ms QT Int : 330 ms P-R-T Axes : 000 075 -79 degrees QTc Int : 454 ms Atrial fibrillation with rapid ventricular response Nonspecific ST and T wave abnormality Abnormal ECG Confirmed by DELMY CORNEJO, CATY ([id number]), editor at large BETY KIRBY ([id number]) on 03/22/2024 9:46:21 AM Referred By: FRANKLYN Confirmed By:VINCENT BROCK MD
--- NOTE | 2024-03-19 17:42 | EX.ED.DYSGE1 ---
HPI History of Present Illness Chief Complaint: Shortness of Breath Informant: patient Onset/Context/Timing Onset: Days (4 days) Context: Gradual Onset Current Severity: Moderate Maximum Severity: Moderate Narrative Narrative: Patient presents secondary to increasing shortness of breath over the past 4 days. He states he was coughing quite a bit but after taking Mucinex that seems to be subsiding. He has not had chest pain or fever. He states he is not getting much relief with his home inhalers. He does have a history of asthma and COPD. [facility] Medical History Former tobacco use Obesity Asthma-COPD overlap syndrome Foot drop, left Hyperlipidemia Hypertension Stroke BPH (benign prostatic hyperplasia) Presbycusis Vitamin D deficiency Home Medications ?Medication ?Instructions ?Recorded ?Last Taken ?Type clopidogrel 75 mg tablet 75 mg PO DAILY blood thinner 05/23/20 02/17/24 History ergocalciferol (vitamin D2) 1,250 1,250 mcg PO UD Check with primary 01/24/23 02/17/24 History mcg (50,000 unit) capsule doctor ipratropium 20 mcg-albuterol 100 2 puff inhalation Q6H COPD 01/24/23 02/18/24 History mcg/actuation mist for inhalation (Combivent Respimat) latanoprost 0.005 % eye drops 1 drp EACH EYE QHS Check with 01/24/23 02/17/24 History primary doctor losartan 50 mg tablet 50 mg PO DAILY high blood pressure 01/24/23 02/18/24 History tamsulosin 0.4 mg capsule 0.4 mg PO QHS Check with primary 01/24/23 02/17/24 History doctor albuterol sulfate 90 mcg/actuation 2 puff inhalation Q6H PRN 01/25/23 Unknown Rx aerosol inhaler shortness of breath or wheezing #8.5 grams timolol maleate 0.5 % eye drops 1 drp ophthalmic (eye) Q12H 10/19/23 02/18/24 History budesonide-formoterol HFA 160 2 puff inhalation BID #10.2 grams 12/17/23 Unknown Rx mcg-4.5 mcg/actuation aerosol inhaler (Symbicort) Nebulizer machine #1 ea 12/22/23 Unknown Rx ipratropium 0.5 mg-albuterol 3 mg 3 ml inhalation Q4H PRN PRN SOB 12/22/23 Unknown Rx (2.5 mg base)/3 mL nebulization &/OR WHEEZING #180 mL soln hydrocortisone 2.5 % topical cream 1 applic topical DAILY PRN itching 02/18/24 Unknown History ipratropium bromide 21 mcg (0.03 2 spray intranasal BID 02/18/24 Unknown History %) nasal spray levocetirizine 5 mg tablet 5 mg PO QHS 02/18/24 Unknown History guaifenesin 1,200 mg tablet, 1,200 mg PO Q12H 7 days #14 tabs 02/21/24 Unknown Rx extended release 12 hr budesonide 0.5 mg/2 mL suspension 0.5 mg (2 mL) inhalation DAILY 1 03/03/24 Unknown Rx for nebulization (Pulmicort) month #60 mL Allergy/AdvReac Type Severity Reaction Status Date / Time Penicillins Allergy Hives Verified 03/19/24 17:21 adhesive tape AdvReac Other Verified 03/19/24 17:21 fentanyl AdvReac PT UNSURE Verified 03/19/24 17:21 OF REACTION morphine AdvReac PT UNSURE Verified 03/19/24 17:21 OF REACTION Family History Mother Breast cancer Father COPD (chronic obstructive pulmonary disease) CVA (cerebral vascular accident) Surgical History Status post-operative repair of hip fracture H/O Spinal surgery Total knee replacement status History of open reduction and internal fixation (ORIF) procedure Social History household members: spouse housing: house Smoking Status: Former smoker Tobacco: How many years used: 30 how long ago did patient quit smoking: Smoked~ 45 years, ~ 1 pack/week until quit. alcohol intake: former substance use type: does not use ROS ROS ED Constitutional Constitutional ED: Denies chills or fever(s) Eyes Eyes: Denies discharge from eye(s) ENT ENT ED: Denies discharge from eye(s), rhinorrhea or sore throat Cardiovascular Cardiovascular: Denies chest pain or palpitations Respiratory/Chest Respiratory/Chest: Reports cough and dyspnea Gastrointestinal Gastrointestinal: Denies abdominal pain, nausea or vomiting Musculoskeletal Musculoskeletal: Denies back pain or extremity pain Integumentary Denies Abrasions or rash Neurologic Neurologic: Denies headache(s) or weakness Psychiatric Psychiatric: Denies anxiety or depression Allergic/Immunologic Allergic/Immunologic ED: Denies lip swelling or urticaria EXAM Physical Exam Const Vital Signs: 03/19/24 17:21 03/19/24 17:23 03/19/24 17:26 Temperature 97.5 F L 97.5 F L Temperature Source Temporal Temporal Pulse Rate 101 H 51 L Respiratory Rate 26 H 26 H Respiratory Effort Respiratory Depth Respiratory Pattern Blood Pressure 149/103 H 149/106 H Blood Pressure Mean 118 120 Pulse Ox 94 97 97 Oxygen Delivery Method Room Air Room Air Room Air 03/19/24 17:26 03/19/24 17:40 03/19/24 18:23 Temperature 97.8 F Temperature Source Temporal Pulse Rate 104 H 110 H Respiratory Rate 15 13 Respiratory Effort Normal Short of Breath Accessory Muscle Use Respiratory Depth Shallow Respiratory Pattern Tachypnea Blood Pressure 132/90 H Blood Pressure Mean 104 Pulse Ox 94 Oxygen Delivery Method Room Air Room Air 03/19/24 18:36 Temperature Temperature Source Pulse Rate 98 Respiratory Rate 16 Respiratory Effort Respiratory Depth Respiratory Pattern Normal Blood Pressure Blood Pressure Mean Pulse Ox Oxygen Delivery Method Positive well nourished and well developed General Appearance ED: well developed HEENT Reports moist mucous membranes Eyes EOMs intact bilaterally Chest Wall inspection of chest normal and palpation of chest normal Resp Resp Narrative: Tachypnea with diminished air movement bilaterally. Cardio Rate: tachycardic Rhythm: abnormal rhythm irregularly irregular GI non-tender Palpation: soft Extremity normal to inspection Neuro oriented x3 Neuro Narrative: No focal neurologic deficit. Psych mental status grossly normal Skin no rashes or lesions noted MDM MDM MDM Narrative Medical decision making narrative: Patient placed on fur plucker. IV line established. Labwork obtained to evaluate for leukocytosis, anemia, and electrolyte derangement. EKG obtained to evaluate for cardiac arrhythmia/ischemia. Chest x-ray obtained to evaluate for acute lung pathology, cardiac size, or mediastinal abnormality. Patient be given IV steroids along with aerosol treatments. History & Record Review Discussion w/independent historian: Patient and Significant other Additional record(s) reviewed:: Prior labs Lab Data Attestation: I reviewed the patient's lab results. Labs: Laboratory Results - last 24 hr 03/19/24 17:35 WBC 7.6 RBC 4.83 Hgb 14.9 Hct 45.0 MCV 93.2 MCH 30.8 MCHC 33.1 RDW Std Deviation 44.1 H RDW Coeff of Flora 13.1 Plt Count 266 MPV 8.5 Immature Gran % (Auto) 0.800 Neut % (Auto) 59.2 Lymph % (Auto) 23.4 Barry % (Auto) 8.1 Eos % (Auto) 7.8 H Baso % (Auto) 0.7 Absolute Neuts (auto) 4.5 Absolute Lymphs (auto) 1.78 Nucleated RBC % 0 Sodium 141 Potassium 3.7 Chloride 108 H Carbon Dioxide 25.0 Anion Gap 8 BUN 15 Creatinine 0.82 Est GFR (MDRD) Af Amer 115 Est GFR (MDRD) Non-Af 95 BUN/Creatinine Ratio 18.4 Glucose 169 H Calcium 9.7 Troponin I High Sens 6 B-Natriuretic Peptide 118.5 H Radiography Chest X-Ray - ED: 1 View, Read by ED Physician and Chronic Changes Diagnostic Testing: Clinical Impression(s) from Imaging Studies Chest X-Ray 03/19/24 18:10 IMPRESSION: No radiographic evidence of acute cardiopulmonary disease. Electronically Signed: Dilan Case MD at 18:32 EDT Reading Location ID and State: [facility] / [place] Tel , Service support , EKG Initial EKG: Attestation: I personally reviewed and interpreted this EKG as follows: Interpretation: Atrial Fibrillation (Atrial fibrillation with a ventricular rate of 114. Nonspecific ST depression.) Treatment and Re-Evaluation :: EKG reveals atrial fibrillation with a ventricular rate of 114. Nonspecific ST change. I do not see record of A-fib history. I spoke with patient and at bedside and they deny history of atrial fibrillation in him. CBC reveals white count of 7.6 with normal differential. Hemoglobin is 14.9. Chemistry studies are unremarkable other than a glucose of 169. Troponin is normal at 6. BNP is slightly elevated at 118. Portable chest x-ray per my interpretation was chronic changes with no obvious infiltrate. Radiology interpretation reviewed and agrees. EKG is atrial fibrillation with a ventricular rate of 114. He does have [address] depression in the lateral precordial leads. On repeat exam patient continues to have some wheezes noted on the right. He does feel that he is breathing better. I will give him a dose of Lovenox now. Patient is asking whether he may have COVID so this will be obtained as well. I will speak with hospitalist regarding admission. Discharge Plan Triage Chief Complaint: Shortness of Breath ED Provider: Jenny Montalvo Dx/Rx/DC Orders Clinical Impression: Atrial fibrillation, new onset, COPD exacerbation, Atrial fibrillation with rapid ventricular response Prescriptions: No Action clopidogrel 75 MG tablet 75 mg PO DAILY losartan 50 mg tablet 50 mg PO DAILY Patient Comments: TAKE 1 TABLET BY MOUTH DAILY latanoprost 0.005 % drops 1 drp EACH EYE QHS Patient Comments: Instill 1 drop into both eyes once a day tamsulosin 0.4 mg capsule 0.4 mg PO QHS Patient Comments: TAKE 1 CAPSULE BY MOUTH AT BEDTIME ergocalciferol (vitamin D2) 1,250 mcg (50,000 unit) capsule 1,250 mcg PO UD Patient Comments: TAKE 1 CAPSULE BY MOUTH twice a week Rx Instructions: 2x/week takes on and saturdays Combivent Respimat 20-100 mcg/actuation Mist 2 puff INHALATION Q6H Patient Comments: 25 mcg/100 mcg in medicatio bag albuterol sulfate 90 mcg/actuation HFA aerosol inhaler 2 puff inhalation Q6H PRN (Reason: shortness of breath or wheezing) Qty: 8.5 0RF timolol maleate 0.5 % drops 1 drp ophthalmic (eye) Q12H Patient Comments: Instill 1 drop in both eyes twice a day ipratropium bromide 21 mcg (0.03 %) spray,non-aerosol 2 spray INTRANASAL BID levocetirizine 5 mg tablet 5 mg PO QHS hydrocortisone 2.5 % cream 1 applic topical DAILY PRN (Reason: itching) guaifenesin 1,200 mg tablet extended release 12hr 1,200 mg PO Q12H 7 Days Qty: 14 6RF budesonide-formoterol [Symbicort] 160-4.5 mcg/actuation HFA aerosol inhaler 2 puff inhalation BID Qty: 10.2 6RF (DME) Nebulizer machine See Rx Instructions .ROUTE .MEDSUPPLY Qty: 1 0RF Rx Instructions: As directed ipratropium-albuterol 0.5 mg-3 mg(2.5 mg base)/3 mL solution for nebulization 3 ml inhalation Q4H PRN PRN (Reason: SOB &/OR WHEEZING) Qty: 180 6RF budesonide [Pulmicort] 0.5 mg/2 mL suspension for nebulization 0.5 mg inhalation DAILY 30 Days Qty: 60 11RF Primary Care Provider: Jessica Santiago Referrals: Jessica Santiago DO [Primary Care Provider] - Print Language: Maltese Disposition Disposition: Acute Care Hospital [facility]
[2024-03-19] MEDS: Ipratropium/Albuterol Sulfate 3 ML AMPUL.NEB INHALATION (17:48)
[2024-03-19] MEDS: MethylPREDNISolone 125 MG/2 ML Vial IV (17:48)
[2024-03-19 18:02] LABS: Absolute Lymphocyte Count 1.78 X10^3/uL (0.83-4.51); Absolute Neutrophil Count 4.5 X10^3/uL (2.0-7.7); Basophil# 0.05 X10^3/uL; Basophil% 0.7 % (0-1); Eosinophil# 0.59 X10^3/uL; Eosinophils% 7.8 % (0-5); Hemoglobin 14.9 g/dL (13.0-16.5); Lymphocyte # 1.78 X10^3/ul (0.83-4.51); Lymphocyte % 23.4 % (19-41); Mean Corp Hgb Conc 33.1 g/dL (32-36); Mean Corpuscular Hgb 30.8 pg (27.0-32.0); Mean Corpuscular Volume 93.2 fL (80-94); Mean Platelet Vol. 8.5 fl (6.2-12.0); Monocyte# 0.62 X10^3/uL; Monocyte% 8.1 % (0-10); NRBC Flagged by Analyzer 0 % (0-5); Neutrophil # 4.51 X10^3/uL (2.7-7.7); Neutrophil % 59.2 % (47-70); Platelet Count 266 K/mm3 (150-450); RBC Distribution Width CV 13.1 % (11.6-14.6); RBC Distribution Width SD 44.1 fl (35.1-43.9); Red Blood Count 4.83 M/mm3 (4.6-6.2); White Blood Count 7.6 K/mm3 (4.4-11.0)
--- NOTE | 2024-03-19 18:10 | RAD_ITS ---
INDICATION: sob EXAMINATION/TECHNIQUE: X-RAY - XR Chest 1 View COMPARISON: February 18, 2024. FINDINGS: LINES/DEVICES: None. LUNGS: No consolidation, edema or effusion. No pneumothorax. MEDIASTINUM AND CARDIOVASCULAR STRUCTURES: Cardiac silhouette not enlarged. Aortic atherosclerosis. BONES AND SOFT TISSUES: Unremarkable. Bilateral glenohumeral osteoarthritis. RAD/Chest 1 View (Portable) IMPRESSION: No radiographic evidence of acute cardiopulmonary disease. Electronically Signed: Dilan Case MD at 18:32 EDT ,
[2024-03-19 18:19] LABS: Anion Gap 8 (5-15); BUN 15 mg/dL (7-18); BUN/Creat Ratio 18.4 RATIO (10-20); Calcium,Total 9.7 mg/dL (8.5-10.1); Chloride 108 mmol/L (98-107); Creatinine, Serum 0.82 mg/dL (0.70-1.30); EST Glomerular Filtration Rate 95 mL/min (>60); Est Glom Filt Rate - Afr Amer 115 mL/min (>60); Glucose 169 mg/dL (74-106); Potassium 3.7 mmol/L (3.5-5.1); Sodium Level 141 mmol/L (136-145); Troponin-I HS (w/2H Reflex) 6 pg/mL (3.0-78.0)
[2024-03-19 18:24] LABS: BNP,B-Type NATRIURETIC PEPTIDE 118.5 pg/mL (0-100)
[2024-03-19] MEDS: Albuterol 2.5 MG/3 ML VIAL.NEB. INHALATION ×2 (18:36)
[2024-03-19] MEDS: Enoxaparin 100 MG/ML Syringe 90 MG SC (19:18)
--- NOTE | 2024-03-19 19:18 | PCM.HP.STD ---
HPI - General General Date of Admission: 03/19/24 Date of Service: 03/19/24 Chief Complaint: Worsening shortness of breath, new onset A-fib with RVR HPI Narrative DEANDRE NEWTON, is a 84 M who presented to [facility] ED on 03/19/2024 with worsening shortness of breath. Saw patient at bedside in the ED. Patient was sitting up comfortably in bed, conversing normally, in no acute distress. He was breathing comfortably on room air at rest with oxygen saturations in the mid 90s. He did not have any conversational dyspnea. His heart rate was consistently A-fib in the 100s to 110s during our encounter. Patient has history of COPD/asthma, follows with outpatient pulmonology. He was hospitalized here in October and February of this year for COPD exacerbations. Lives at home with his , has good functional status at baseline and is able to do everything around the house for himself without issue. Patient states that he noticed he was becoming more short of breath over the past 3 to 4 days. He uses both Symbicort and a Combivent short-acting inhaler as needed. He used the Combivent inhaler a few times over the past few days with very minimal relief of symptoms. He reports mild wheezing and worsening dyspnea on exertion. Denies any shortness of breath at rest. He does report a nonproductive cough that is somewhat chronic for him. He denies any chest pain or palpitations. Patient states he has been told for many years that his heart rate runs slow at times. However, he denies any history of A-fib that he is aware of. He denies any lower extremity swelling. Denies any fevers or chills. No other acute concerns at this time. Vitals in ED notable for A-fib with heart rate in 100s to 110s, normotensive, afebrile, satting well on room air. CBC and BMP unremarkable. Troponin negative x 2. BNP 118. TSH normal. EKG showed A-fib with RVR, no ST changes. Chest x-ray was unremarkable. Patient was started on a Cardizem drip in the ED with improvement in his heart rate. Was also given a dose of IV Solu-Medrol and a breathing treatment for presumed COPD exacerbation. Will be admitted for further management. [facility] Medical History Former tobacco use Obesity Asthma-COPD overlap syndrome Foot drop, left Hyperlipidemia Hypertension Stroke BPH (benign prostatic hyperplasia) Presbycusis Vitamin D deficiency Home Medications ?Medication ?Instructions ?Recorded ?Last Taken ?Type clopidogrel 75 mg tablet 75 mg PO DAILY blood thinner 05/23/20 02/17/24 History ergocalciferol (vitamin D2) 1,250 1,250 mcg PO UD Check with primary 01/24/23 02/17/24 History mcg (50,000 unit) capsule doctor ipratropium 20 mcg-albuterol 100 2 puff inhalation Q6H COPD 01/24/23 02/18/24 History mcg/actuation mist for inhalation (Combivent Respimat) latanoprost 0.005 % eye drops 1 drp EACH EYE QHS Check with 01/24/23 02/17/24 History primary doctor losartan 50 mg tablet 50 mg PO DAILY high blood pressure 01/24/23 02/18/24 History tamsulosin 0.4 mg capsule 0.4 mg PO QHS Check with primary 01/24/23 02/17/24 History doctor albuterol sulfate 90 mcg/actuation 2 puff inhalation Q6H PRN 01/25/23 Unknown Rx aerosol inhaler shortness of breath or wheezing #8.5 grams timolol maleate 0.5 % eye drops 1 drp ophthalmic (eye) Q12H 10/19/23 02/18/24 History budesonide-formoterol HFA 160 2 puff inhalation BID #10.2 grams 12/17/23 Unknown Rx mcg-4.5 mcg/actuation aerosol inhaler (Symbicort) Nebulizer machine #1 ea 12/22/23 Unknown Rx ipratropium 0.5 mg-albuterol 3 mg 3 ml inhalation Q4H PRN PRN SOB 12/22/23 Unknown Rx (2.5 mg base)/3 mL nebulization &/OR WHEEZING #180 mL soln hydrocortisone 2.5 % topical cream 1 applic topical DAILY PRN itching 02/18/24 Unknown History ipratropium bromide 21 mcg (0.03 2 spray intranasal BID 02/18/24 Unknown History %) nasal spray levocetirizine 5 mg tablet 5 mg PO QHS 02/18/24 Unknown History guaifenesin 1,200 mg tablet, 1,200 mg PO Q12H 7 days #14 tabs 02/21/24 Unknown Rx extended release 12 hr budesonide 0.5 mg/2 mL suspension 0.5 mg (2 mL) inhalation DAILY 1 03/03/24 Unknown Rx for nebulization (Pulmicort) month #60 mL Allergy/AdvReac Type Severity Reaction Status Date / Time Penicillins Allergy Hives Verified 03/19/24 17:21 adhesive tape AdvReac Other Verified 03/19/24 17:21 fentanyl AdvReac PT UNSURE Verified 03/19/24 17:21 OF REACTION morphine AdvReac PT UNSURE Verified 03/19/24 17:21 OF REACTION Family History Mother Breast cancer Father COPD (chronic obstructive pulmonary disease) CVA (cerebral vascular accident) Surgical History Status post-operative repair of hip fracture H/O Spinal surgery Total knee replacement status History of open reduction and internal fixation (ORIF) procedure Social History household members: spouse housing: house Smoking Status: Former smoker Tobacco: How many years used: 30 how long ago did patient quit smoking: Smoked~ 45 years, ~ 1 pack/week until quit. alcohol intake: former substance use type: does not use ROS Constitutional Constitutional: Denies chills, fatigue, fever(s) or weakness Cardiovascular Cardiovascular: Denies chest pain, edema, lightheadedness, palpitations, rapid heart rate or syncope Respiratory/Chest Respiratory/Chest: Reports cough, shortness of breath with exertion and wheezing; Denies productive cough or shortness of breath at rest Gastrointestinal Gastrointestinal: Denies abdominal pain, constipation, diarrhea, nausea or vomiting Genitourinary Genitourinary: Denies dysuria Musculoskeletal Musculoskeletal: Denies arthralgias or myalgias Neurologic Neurologic: Denies dizziness, focal weakness or headache(s) Vital Signs Vital Signs Vital Signs: 03/19/24 17:21 03/19/24 17:23 03/19/24 17:26 Temperature 97.5 F L 97.5 F L Temperature Source Temporal Temporal Pulse Rate 101 H 51 L Respiratory Rate 26 H 26 H Respiratory Effort Respiratory Depth Respiratory Pattern Blood Pressure 149/103 H 149/106 H Blood Pressure Mean 118 120 Pulse Ox 94 97 97 Oxygen Delivery Method Room Air Room Air Room Air 03/19/24 17:26 03/19/24 17:40 03/19/24 18:23 Temperature 97.8 F Temperature Source Temporal Pulse Rate 104 H 110 H Respiratory Rate 15 13 Respiratory Effort Normal Short of Breath Accessory Muscle Use Respiratory Depth Shallow Respiratory Pattern Tachypnea Blood Pressure 132/90 H Blood Pressure Mean 104 Pulse Ox 94 Oxygen Delivery Method Room Air Room Air 03/19/24 18:36 Temperature Temperature Source Pulse Rate 98 Respiratory Rate 16 Respiratory Effort Respiratory Depth Respiratory Pattern Normal Blood Pressure Blood Pressure Mean Pulse Ox Oxygen Delivery Method Weight Weight: 95.1 kg Body Mass Index (BMI) 32.8 Physical Exam Const alert, oriented x3 and no apparent distress Constitutional Narrative: Pleasant elderly male, hard of hearing, obese, sitting up comfortably in bed, conversing normally, no acute distress. General Appearance: cooperative and comfortable HEENT normocephalic, head/scalp atraumatic, nasal mucous membranes and turbinates normal and moist oral mucous membranes HEENT Narrative: Hard of hearing bilaterally. Eyes PERRL, EOMs intact bilaterally and conjunctivae normal Neck full ROM Chest inspection of chest normal Resp normal respiratory effort, normal air movement, no use of accessory muscles and clear to auscultation bilaterally Cardio no murmurs and peripheral pulses 2+ throughout Cardio Narrative: A-fib with RVR. GI normal to inspection, nondistended, normoactive bowel sounds, soft to palpation, non-tender and non-distended Back/Spine normal ROM Extremity normal to inspection, full ROM and no pedal edema Skin no rashes or lesions noted Neuro moves all extremities and no focal motor deficits Speech: speech normal Psych mental status grossly normal Results Lab / Micro Data 03/19/24 17:35 03/19/24 17:35 Labs: Laboratory Results - last 24 hr 03/19/24 17:35: WBC 7.6, RBC 4.83, Hgb 14.9, Hct 45.0, MCV 93.2, MCH 30.8, MCHC 33.1, RDW Std Deviation 44.1 H, RDW Coeff of Flora 13.1, Plt Count 266, MPV 8.5, Immature Gran % (Auto) 0.800, Neut % (Auto) 59.2, Lymph % (Auto) 23.4, [place] % (Auto) 8.1, Eos % (Auto) 7.8 H, Baso % (Auto) 0.7, Absolute Neuts (auto) 4.5, Absolute Lymphs (auto) 1.78, Nucleated RBC % 0, Sodium 141, Potassium 3.7, Chloride 108 H, Carbon Dioxide 25.0, Anion Gap 8, BUN 15, Creatinine 0.82, Est GFR (MDRD) Af Amer 115, Est GFR (MDRD) Non-Af 95, BUN/Creatinine Ratio 18.4, Glucose 169 H, Calcium 9.7, Troponin I High Sens 6, B-Natriuretic Peptide 118.5 H Imaging Radiology Impression Chest X-Ray 03/19/24 18:10 IMPRESSION: No radiographic evidence of acute cardiopulmonary disease. Electronically Signed: Dilan Case MD at 18:32 EDT Reading Location ID and State: [facility] / [place] Tel , Service support , Assessment & Plan Assessment/Plan (1) COPD exacerbation: (2) Atrial fibrillation, new onset: PLAN: Plan Patient is an 84-year-old male who presented [facility] ED on 03/19/2024 with worsening shortness of breath. 1. New onset A-fib with RVR ? Admit under inpatient status to PCU. Cardiology consulted. Heart rate in the 100s-110s on admit. EKG consistent with A-fib with RVR. Will start Lopressor 25 mg twice daily. [id number] score of 5 (age, HTN, h/o of CVA). Given dose of therapeutic Lovenox in the ED and will start Eliquis 5 mg twice daily for anticoagulation. Patient was agreeable to starting anticoagulation. Echo ordered. 2. Mild COPD/asthma exacerbation Follows with outpatient pulmonology, last office visit in 01/2024. PFTs from December 2023 showed a reversible moderate fracture ventilatory defect. 6-minute walk test in March 2023 showed significant exertional oxygen desaturation with chandler of 89% with ambulation. Breathing comfortably on room air at rest with oxygen saturations in the mid 90s in the ED. Mild wheezing noted on exam after breathing treatment was given in the ED. Given 1 dose of IV Solu-Medrol 125 mg in the ED. ? Will start prednisone 40 mg daily on morning of 03/20. Start scheduled DuoNebs every 6 hours for now. Continue home long-acting inhaler. Respiratory PCR panel and sputum culture ordered. Appears noninfectious and is afebrile with normal WBC count, will hold on antibiotics for now. Chronic medical conditions: ? Obesity: BMI 34 on admit. Complicates hospital course, care and prognosis. ? Hypertension: Stable. Continue home losartan. ? BPH with obstructive symptoms: Continue home Flomax. ? Allergies: Continue home antihistamine. ? 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 Continue home Plavix. ? Former tobacco abuse: Encouraged continued cessation. DVT prophylaxis: Not indicated, on full dose Eliquis CODE STATUS: Full code, verified Expected disposition: Home, 2 to 3 days Total clinical time spent by myself addressing the patient's medical issues, reviewing all the data, and collaborating with patient's care team: 55 minutes. Charges/Coding Visit Charges Inpatient E&M: 28456 Init Hosp L2
[2024-03-19 19:53] LABS: Reflex Troponin-HS? (from REC) Y
--- NOTE | 2024-03-19 20:04 | ECHOCS_ITS ---
Reason For Study: Afib, Aflutter Procedure This was a 2D Doppler, Color Flow transthoracic echocardiogram. Contrast injection was performed. Exam performed portable in patient room. Left Ventricle Normal LV size. The estimated ejection fraction is 70 %. No evidence for diastolic dysfunction. No regional wall motion abnormalities noted. Right Ventricle Normal RV size. Normal systolic function. Atria The left and right atria are normal. No doppler evidence for ASD. Mitral Valve There is no mitral valve stenosis. No mitral valve insufficiency. Tricuspid Valve There is no tricuspid stenosis. Unable to estimate RV systolic pressure due to inadequate jet, pulmonary artery pressure probably normal. Aortic Valve There is no aortic stenosis. No aortic valve insufficiency. Pulmonic Valve There is no pulmonic valvular stenosis. No pulmonic valve insufficiency. Great Vessels Normal aortic root. Pericardium/Pleural Small pericardial effusion. Echogenic pericardium. MMode/2D Measurements & Calculations LVIDd: 3.5 cm IVSd: 1.4 cm Ao root diam: 3.6 cm LVIDs: 2.3 cm LVPWd: 1.2 cm FS: 34.6 % LAV(MOD-bp): 37.8 ml LVAd ap4: 22.4 cm2 SV(MOD-sp4): 35.5 ml LAV(MOD-bp) Indexed: 18.3 ml/m2 LVLd ap4: 7.1 cm LAV(MOD-sp2): 34.1 ml EDV(MOD-sp4): 60.3 ml LAV(MOD-sp4): 34.4 ml EDV(sp4-el): 59.8 ml LVAs ap4: 12.2 cm2 LVLs ap4: 5.3 cm ESV(MOD-sp4): 24.9 ml ESV(sp4-el): 23.9 ml EF(MOD-sp4): 58.8 % EF(sp4-el): 60.0 % SV(sp4-el): 35.9 ml LA A4 area: 16.0 cm2 LA dimension(2D): 4.4 cm RA A4 area: 16.8 cm2 Doppler Measurements & Calculations MV E max derrek: 102.8 cm/sec Lat Peak E' Derrek: 12.2 cm/sec Med Peak E' Derrek: 7.9 cm/sec E/E' lat: 8.4 E/E' med: 13.1 Ao V2 max: 162.2 cm/sec LV V1 max: 104.4 cm/sec PA V2 max: 111.8 cm/sec Ao max P.8 mmHg LV V1 max P.4 mmHg Ao V2 mean: 121.7 cm/sec Ao mean P.4 mmHg Ao V2 VTI: 25.6 cm ECHO/Echo Complete W/ Contrast Interpretation Summary The estimated ejection fraction is 70 %. No evidence for diastolic dysfunction. Small pericardial effusion. Echogenic pericardium. Ordering Physician: Jose Garg Referring Physician: Jessica Santiago Performed By: Bree Oneill, JENNIFER, RVT
[2024-03-19 20:06] LABS: Thyroid Stim Hormone (TSH) 1.24 uIU/mL (0.358-3.74)
[2024-03-19 20:16] LABS: Troponin-I HS 6 pg/mL (3.0-78.0)
[2024-03-19] MEDS: Metoprolol Tartrate 25 MG Tablet PO (20:18)
[2024-03-19] MEDS: Tamsulosin HCl 0.4 MG Capsule PO (22:05)
[2024-03-19] MEDS: Loratadine 10 MG Tablet PO (22:06)
[2024-03-19] MEDS: guaiFENesin 1,200 MG Tablet 1200 MG PO (22:06)
[2024-03-19] MEDS: Insulin Lispro 100 UNIT/ML INSULN.PEN SC (22:20)
[2024-03-19] MEDS: Ipratropium Bromide 0.06% NASAL SPRAY 1 SPRAY NASAL (22:20)
[2024-03-19 22:43] LABS: Bedside Glucose 271 mg/dL (74-106)
[2024-03-20] VITALS (13 sets, daily range): BP systolic 116–123; BP diastolic 72–77; PULSE 73–113; RESP 16–22; TEMP 35.7–36.6; O2SAT 95–96
[2024-03-20] MEDS: Ipratropium/Albuterol Sulfate 3 ML AMPUL.NEB INHALATION ×4 (04:45→22:38)
[2024-03-20 05:44] LABS: Hematocrit 46.7 % (40-54); Hemoglobin 15.4 g/dL (13.0-16.5); Mean Corpuscular Hgb 30.9 pg (27.0-32.0); Mean Corpuscular Volume 93.6 fL (80-94); Mean Platelet Vol. 8.5 fl (6.2-12.0); Platelet Count 271 K/mm3 (150-450); RBC Distribution Width SD 44.1 fl (35.1-43.9); Red Blood Count 4.99 M/mm3 (4.6-6.2); White Blood Count 9.6 K/mm3 (4.4-11.0)
[2024-03-20 06:21] LABS: Anion Gap 12 (5-15); BUN 14 mg/dL (7-18); BUN/Creat Ratio 14.1 RATIO (10-20); Chloride 106 mmol/L (98-107); Creatinine, Serum 0.99 mg/dL (0.70-1.30); EST Glomerular Filtration Rate 76 mL/min (>60); Est Glom Filt Rate - Afr Amer 92 mL/min (>60); Estimated Creatinine Clearance 61.42 ml/min; Glucose 231 mg/dL (74-106); Potassium 3.6 mmol/L (3.5-5.1); Sodium Level 139 mmol/L (136-145)
[2024-03-20] MEDS: Insulin Lispro 100 UNIT/ML INSULN.PEN SC ×4 (06:38→21:14)
[2024-03-20 06:58] LABS: Bedside Glucose 214 mg/dL (74-106)
[2024-03-20] MEDS: Albuterol 2.5 MG/3 ML VIAL.NEB. INHALATION ×2 (07:35→17:26)
[2024-03-20] MEDS: Timolol 0.5% 5ML OPTH.BTL 1 DRP OPHTHALMIC ×2 (10:32→21:15)
[2024-03-20] MEDS: guaiFENesin 1,200 MG Tablet 1200 MG PO ×2 (11:43→21:14)
[2024-03-20] MEDS: Ipratropium Bromide 0.06% NASAL SPRAY 1 SPRAY NASAL ×2 (11:44→21:14)
[2024-03-20] MEDS: Losartan Potassium 50 MG Tablet PO (11:44)
[2024-03-20] MEDS: APIXABAN 5 MG TABLET PO (11:44)
[2024-03-20] MEDS: predniSONE 20 MG Tablet 40 MG PO (11:45)
[2024-03-20] MEDS: Metoprolol Tartrate 25 MG Tablet PO (11:45)
[2024-03-20] MEDS: Clopidogrel Bisulfate 75 MG Tablet PO (11:46)
--- NOTE | 2024-03-20 13:56 | PN.HOSP_ITS ---
Reason for Visit Reason for Visit: Diagnoses Unspecified atrial fibrillation (03/19/24) Chronic obstructive pulmonary disease with (acute) exacerbation (03/19/24) Subjective Subjective Patient was seen and examined today, he is extremely hard of hearing. He remains in atrial fibrillation, the rate appears to be controlled at this time. Echocardiogram results are pending at this time, talked briefly with cardiology about his care Objective Data Objective Data Vital Signs: Vital Signs Temp Pulse Resp BP Pulse Ox O2 Del Method O2 Flow Rate 97.4 F L 113 H 20 H 117/72 95 Nasal Cannula 2 03/20/24 10:27 03/20/24 11:45 03/20/24 11:36 03/20/24 11:45 03/20/24 10:27 03/20/24 10:27 03/20/24 10:27 Oxygen Flow Rate (L/min) 2 Oxygen Delivery Method Nasal Cannula Weight: 99.836 kg Body Mass Index (BMI) 34.4 Intake & Output: Intake and Output for Last 24 Hours 03/18/24 03/19/24 03/20/24 23:59 23:59 23:59 Intake Total 720 / 720 Balance 720 / 720 Lab / Micro Data 03/20/24 05:19 03/20/24 05:19 Labs: Laboratory Results - last 24 hr 03/19/24 17:35: WBC 7.6, RBC 4.83, Hgb 14.9, Hct 45.0, MCV 93.2, MCH 30.8, MCHC 33.1, RDW Std Deviation 44.1 H, RDW Coeff of Flora 13.1, Plt Count 266, MPV 8.5, Immature Gran % (Auto) 0.800, Neut % (Auto) 59.2, Lymph % (Auto) 23.4, [place] % (Auto) 8.1, Eos % (Auto) 7.8 H, Baso % (Auto) 0.7, Absolute Neuts (auto) 4.5, Absolute Lymphs (auto) 1.78, Nucleated RBC % 0, Sodium 141, Potassium 3.7, C hloride 108 H, Carbon Dioxide 25.0, Anion Gap 8, BUN 15, Creatinine 0.82, Est GFR (MDRD) Af Amer 115, Est GFR (MDRD) Non-Af 95, BUN/Creatinine Ratio 18.4, G lucose 169 H, Calcium 9.7, Troponin I High Sens 6, B-Natriuretic Peptide 118.5 H 03/19/24 19:22: TSH 1.24 03/19/24 19:40: Troponin I High Sens 6 03/19/24 22:14: POC Glucose 271 H 03/20/24 05:19: WBC 9.6, RBC 4.99, Hgb 15.4, Hct 46.7, MCV 93.6, MCH 30.9, MCHC 33.0, RDW Std Deviation 44.1 H, RDW Coeff of Flora 13.0, Plt Count 271, MPV 8.5, Sodium 139, Potassium 3.6, Chloride 106, Carbon Dioxide 21.0, Anion Gap 12, BUN 14, Creatinine 0.99, Estim Creat Clear Calc 61.42, Est GFR (MDRD) Af Amer 92, Est GFR (MDRD) Non-Af 76, BUN/Creatinine Ratio 14.1, Glucose 231 H, Calcium 10.0 03/20/24 06:36: POC Glucose 214 H Micro: Microbiology 03/19/24 23:20 Mucosa - Nasopharyngeal Respiratory Panel (PCR) - Final 03/19/24 19:15 Mucosa - Nasopharyngeal SARS-CoV-2, Influenza & RSV (PCR) - Final Radiography Diagnostic Testing: Radiology Impression Chest X-Ray 03/19/24 18:10 IMPRESSION: No radiographic evidence of acute cardiopulmonary disease. Electronically Signed: Dilan Case MD at 18:32 EDT Reading Location ID and State: [address] [place] [address] Tel , Service support , Physical Exam Narrative Patient is extremely hard of hearing which makes communication difficult with the patient Const alert, oriented x3 and no apparent distress General Appearance: cooperative, well kempt and well developed Orientation / Consciousness: awake, oriented to person, oriented to place and oriented to time HEENT normocephalic, head/scalp atraumatic and moist oral mucous membranes Eyes PERRL, EOMs intact bilaterally and conjunctivae normal Neck supple, no JVD, thyroid normal and no carotid bruits General: trachea midline Resp normal respiratory effort, no retractions, no use of accessory muscles and clear to auscultation bilaterally Auscultation: Negative for rales, rhonchi or wheezes Cardio regular rate, regular rhythm, no murmurs, no rub and no gallops GI normal to inspection, nondistended, normoactive bowel sounds, soft to palpation, non-tender and non-distended Extremity no clubbing, cyanosis or edema Skin no rashes or lesions noted General Skin Exam: no breakdown Neuro oriented x3, CN's II-XII intact bilaterally, moves all extremities, no focal motor deficits and no sensory deficits noted Sensorium / Orientation: awake and alert Speech: speech normal Psych affect normal Assessment & Plan Assessment/Plan (1) Atrial fibrillation with rapid ventricular response: PLAN: Plan 1. New onset A-fib with RVR-patient's rate appears to be controlled at this time with rate limiting agents, he is on anticoagulation and will be seen by cardiology, echocardiogram was performed today #2 exacerbation of COPD-patient will remain on aerosol treatments and prednisone at this time, his lungs were clear anteriorly today #3 hypoxia-patient is currently on 2 L via nasal cannula, pulse ox will be monitored and oxygen will be weaned if possible #4 essential hypertension-patient is on losartan #5 BPH-patient is on Flomax #6 cerebrovascular disease-patient is on Plavix Total clinical time spent by myself addressing the patient's medical issues, reviewing all of his data, and collaborating with patient's care team: 35 minutes Charges/Coding Visit Charges Inpatient E&M: 83363 Subs Hosp L2
--- NOTE | 2024-03-20 15:30 | CASEMGMT ---
Addendum entered by Ludmila Cardoza 03/22/24 09:51: Per [facility], both pt and are now declining HHC for pt. Original Note: JO ANN CONNER readmission note: Index admission: Admitted 02/17 w/acute resp failure and COPD exac. Pt d/c'd home 02/21 w/[facility]. Pt d/c'd home w/rx for pulmicort, mucinex, and prednisone. Palliative referral was made during hospitalization. Current admission: Admitted 03/19 w/new onset A-Fib w/RVR and COPD exacerbation. JO ANN CONNER to room. Introduced self and role. Pt resting in bed. @ bedside. Per pt and , pt has f/u with both PCP and Dr Clark since last admission. Pt states the first few days of being home he accidentally took the nebulizer w/steroid in it more frequently than prescribed, but did not have any adverse effects. He states he did notify his physician when he realized it and has been taking it as prescribed ever since then. They also state he has been taking his other medications as prescribed. The following information was also obtained. PCP: Dr Santiago-pt has an upcoming appt w/her 04/07. Made aware to follow instructions @ dc and schedule appt w/PCP earlier, if indicated. Dr Clark/pulmonology: Pt has upcoming appt 04/16. O2: Has home O2 thru [employer] @ 2 l/m w/exertion only. has portable tank in her car that pt can go home on. Home O2 testing to be completed @ discharge. Pt has a BP machine, nebulizer, pulse ox, walker, and WC and denies having further DME needs. Palliative: Palliative has seen pt since discharge. E-mail sent to [facility] to notify them of pt's admission. HHC: Pt d/c'd home w/[facility]. Per , [facility] discharged pt last week. Discussed pt's wishes @ discharge and HHC. Initially pt stated did not want HHC @ this discharge, but voiced much concern, stating she really feels pt needs it. Information provided to pt and questions answered. Offered to pt to f/u with PCP for HHC referral if he changes his mind once he returns home. Pt then told RN CM he would rather a referral be made while he is @ [facility], but states he just does not want them to come out to see him right away, stating he would prefer they come out a week after discharge. Pt made aware this JO ANN CONNER is not sure if HHC would be agreeable to waiting that long for SOC, but to discuss that with them when they call to schedule appt. He voices understanding and is okay with that plan. Pt states [facility] and declines wanting list of other HHC options. Pt only wants SN at this time and does not want any therapy, although states she feels he would benefit from therapy, pt still declined that service. They were made aware if he is agreeable to therapy once he returns home, to let HHC know. Call placed to [facility] and VM left re: referral. Pt and made aware decision re: acceptance would be made on Friday and someone will f/u with them on Friday. They voice understanding. Pt and deny having other discharge needs/concerns and thanked JO ANN CONNER for all information provided. Plan: Home w/HHC and palliative care-- VM left on [facility] referral line. Awaiting response. DC physiotherapy assistant or CM to f/u on Friday re: acceptance. Home O2 testing to be completed prior to discharge. If pt qualifies for any O2 @ rest or more than 2 l/m w/exertion, new script will need faxed to [facility]. Green sheet placed on chart w/instructions. has pt's portable O2 tank in her car that pt can go home on. Shashi ORTEGAN JO ANN CONNER
--- NOTE | 2024-03-20 16:32 | CON.PCM.CA_ITS ---
Assessment & Plan Assessment/Plan (1) Atrial fibrillation with rapid ventricular response: PLAN: Increase metoprolol to 50 mg twice daily and decrease losartan. Will hold off on Eliquis due to the pericardial effusion that appears hemorrhagic. Continue Plavix at this time. (2) Pericardial effusion: PLAN: Small pericardial effusion. No evidence of tamponade. CT from October 2023 also showed trace effusion. Patient may need a follow-up echo in about 2 weeks to see if there is progression of the effusion. Further workup for this could also be considered as an outpatient. HPI Consult Data Date of Consult: 03/20/24 HPI Narrative Reason for Consultation: Atrial fibrillation HPI Narrative: DEANDRE NEWTON, is a 84 M who presents with COPD exacerbation. Was also found to be in A-fib with RVR. He has noticed improvement since admission. His 2D echo revealed preserved EF, small pericardial fusion with echodensities suggestive of hemorrhagic pericardial effusion. [facility] Medical History Former tobacco use Obesity Asthma-COPD overlap syndrome Foot drop, left Hyperlipidemia Hypertension Stroke BPH (benign prostatic hyperplasia) Presbycusis Vitamin D deficiency Home Medications ?Medication ?Instructions ?Recorded ?Last Taken ?Type clopidogrel 75 mg tablet 75 mg PO DAILY blood thinner 05/23/20 02/17/24 History ergocalciferol (vitamin D2) 1,250 1,250 mcg PO UD Check with primary 01/24/23 02/17/24 History mcg (50,000 unit) capsule doctor ipratropium 20 mcg-albuterol 100 2 puff inhalation Q6H COPD 01/24/23 02/18/24 History mcg/actuation mist for inhalation (Combivent Respimat) latanoprost 0.005 % eye drops 1 drp EACH EYE QHS Check with 01/24/23 02/17/24 History primary doctor losartan 50 mg tablet 50 mg PO DAILY high blood pressure 01/24/23 02/18/24 History tamsulosin 0.4 mg capsule 0.4 mg PO QHS Check with primary 01/24/23 02/17/24 History doctor albuterol sulfate 90 mcg/actuation 2 puff inhalation Q6H PRN 01/25/23 Unknown Rx aerosol inhaler shortness of breath or wheezing #8.5 grams timolol maleate 0.5 % eye drops 1 drp ophthalmic (eye) Q12H EYES 10/19/23 02/18/24 History budesonide-formoterol HFA 160 2 puff inhalation BID #10.2 grams 12/17/23 Unknown Rx mcg-4.5 mcg/actuation aerosol inhaler (Symbicort) Nebulizer machine #1 ea 12/22/23 Unknown Rx ipratropium 0.5 mg-albuterol 3 mg 3 ml inhalation Q4H PRN PRN SOB 12/22/23 Unknown Rx (2.5 mg base)/3 mL nebulization &/OR WHEEZING #180 mL soln hydrocortisone 2.5 % topical cream 1 applic topical DAILY PRN itching 02/18/24 Unknown History ipratropium bromide 21 mcg (0.03 2 spray intranasal BID SOB 02/18/24 Unknown History %) nasal spray levocetirizine 5 mg tablet 5 mg PO QHS ALLERGIES SEASONAL 02/18/24 Unknown History guaifenesin 1,200 mg tablet, 1,200 mg PO Q12H 7 days #14 tabs 02/21/24 Unknown Rx extended release 12 hr budesonide 0.5 mg/2 mL suspension 0.5 mg (2 mL) inhalation DAILY 1 03/03/24 Unknown Rx for nebulization (Pulmicort) month #60 mL Allergy/AdvReac Type Severity Reaction Status Date / Time Penicillins Allergy Hives Verified 03/19/24 17:21 adhesive tape AdvReac Other Verified 03/19/24 17:21 fentanyl AdvReac PT UNSURE Verified 03/19/24 17:21 OF REACTION morphine AdvReac PT UNSURE Verified 03/19/24 17:21 OF REACTION Family History Mother Breast cancer Father COPD (chronic obstructive pulmonary disease) CVA (cerebral vascular accident) Surgical History Status post-operative repair of hip fracture H/O Spinal surgery Total knee replacement status History of open reduction and internal fixation (ORIF) procedure Social History household members: spouse housing: house Smoking Status: Former smoker Tobacco: How many years used: 30 how long ago did patient quit smoking: Smoked~ 45 years, ~ 1 pack/week until quit. alcohol intake: former substance use type: does not use Physical Exam Const alert and oriented x3 HEENT normocephalic Eyes no scleral icterus Resp Resp Narrative: Bilateral wheezes Cardio Cardio Narrative: Irregular rate Risk Stratification Risk Stratification Applicable: No Charges/Coding Visit Charges Inpatient E&M: 26054 Init Hosp L2 Objective Data Vital Signs: Vital Signs Temp Pulse Resp BP Pulse Ox O2 Del Method O2 Flow Rate 97.4 F L 113 H 20 H 117/72 95 Nasal Cannula 2 03/20/24 10:27 03/20/24 11:45 03/20/24 11:36 03/20/24 11:45 03/20/24 10:27 03/20/24 10:27 03/20/24 10:27 Oxygen Flow Rate (L/min) 2 Oxygen Delivery Method Nasal Cannula Weight: 220 lb 1.611 oz Body Mass Index (BMI) 34.4 Intake & Output: Intake and Output for Last 24 Hours 03/18/24 03/19/24 03/20/24 23:59 23:59 23:59 Intake Total 720 / 720 Balance 720 / 720 Lab / Micro Data 03/20/24 05:19 03/20/24 05:19 Labs: Laboratory Results - last 24 hr 03/19/24 17:35: WBC 7.6, RBC 4.83, Hgb 14.9, Hct 45.0, MCV 93.2, MCH 30.8, MCHC 33.1, RDW Std Deviation 44.1 H, RDW Coeff of Flora 13.1, Plt Count 266, MPV 8.5, Immature Gran % (Auto) 0.800, Neut % (Auto) 59.2, Lymph % (Auto) 23.4, Beaver % (Auto) 8.1, Eos % (Auto) 7.8 H, Baso % (Auto) 0.7, Absolute Neuts (auto) 4.5, Absolute Lymphs (auto) 1.78, Nucleated RBC % 0, Sodium 141, Potassium 3.7, C hloride 108 H, Carbon Dioxide 25.0, Anion Gap 8, BUN 15, Creatinine 0.82, Est GFR (MDRD) Af Amer 115, Est GFR (MDRD) Non-Af 95, BUN/Creatinine Ratio 18.4, G lucose 169 H, Calcium 9.7, Troponin I High Sens 6, B-Natriuretic Peptide 118.5 H 03/19/24 19:22: TSH 1.24 03/19/24 19:40: Troponin I High Sens 6 03/19/24 22:14: POC Glucose 271 H 03/20/24 05:19: WBC 9.6, RBC 4.99, Hgb 15.4, Hct 46.7, MCV 93.6, MCH 30.9, MCHC 33.0, RDW Std Deviation 44.1 H, RDW Coeff of Flora 13.0, Plt Count 271, MPV 8.5, Sodium 139, Potassium 3.6, Chloride 106, Carbon Dioxide 21.0, Anion Gap 12, BUN 14, Creatinine 0.99, Estim Creat Clear Calc 61.42, Est GFR (MDRD) Af Amer 92, Est GFR (MDRD) Non-Af 76, BUN/Creatinine Ratio 14.1, Glucose 231 H, Calcium 10.0 03/20/24 06:36: POC Glucose 214 H Micro: Microbiology 03/19/24 23:20 Mucosa - Nasopharyngeal Respiratory Panel (PCR) - Final 03/19/24 19:15 Mucosa - Nasopharyngeal SARS-CoV-2, Influenza & RSV (PCR) - Final Cardiology Labs/Tests 03/19/24 17:35: WBC 7.6, RBC 4.83, Hgb 14.9, Hct 45.0, MCV 93.2, MCH 30.8, MCHC 33.1, Plt Count 266, MPV 8.5, Immature Gran % (Auto) 0.800, Neut % (Auto) 59.2, Lymph % (Auto) 23.4, Beaver % (Auto) 8.1, Eos % (Auto) 7.8 H, Baso % (Auto) 0.7, Absolute Neuts (auto) 4.5, Nucleated RBC % 0, Sodium 141, Potassium 3.7, C hloride 108 H, Carbon Dioxide 25.0, Anion Gap 8, BUN 15, Creatinine 0.82, Est GFR (MDRD) Af Amer 115, Est GFR (MDRD) Non-Af 95, BUN/Creatinine Ratio 18.4, G lucose 169 H, Calcium 9.7, B-Natriuretic Peptide 118.5 H 03/20/24 05:19: WBC 9.6, RBC 4.99, Hgb 15.4, Hct 46.7, MCV 93.6, MCH 30.9, MCHC 33.0, Plt Count 271, MPV 8.5, Sodium 139, Potassium 3.6, Chloride 106, Carbon Dioxide 21.0, Anion Gap 12, BUN 14, Creatinine 0.99, Est GFR (MDRD) Af Amer 92, Est GFR (MDRD) Non-Af 76, BUN/Creatinine Ratio 14.1, Glucose 231 H, Calcium 10.0 Rhythm: EKG: ECHO: Stress Test: Cardiac Cath: PCI: CT Surgery: Holter monitor: EPS: PPM: CXR: Chest CT Scan: Radiography Diagnostic Testing: Radiology Impression Chest X-Ray 03/19/24 18:10 IMPRESSION: No radiographic evidence of acute cardiopulmonary disease. Electronically Signed: Dilan Case MD at 18:32 EDT Reading Location ID and State: [address] [place] [address] Tel , Service support , Echocardiogram 03/19/24 20:04 Interpretation Summary The estimated ejection fraction is 70 %. No evidence for diastolic dysfunction. Small pericardial effusion. Echogenic pericardium. Ordering Physician: Jose Garg Referring Physician: Jessica Santiago Performed By: Bree Oneill, RDCS, RVT
[2024-03-20] MEDS: Latanoprost 0.005% 1 Bottle 1 DRP EACH EYE (21:14)
[2024-03-20] MEDS: Metoprolol Tartrate 50 MG Tablet PO (21:14)
[2024-03-20] MEDS: Tamsulosin HCl 0.4 MG Capsule PO (21:14)
[2024-03-20] MEDS: Loratadine 10 MG Tablet PO (21:14)
[2024-03-20 21:39] LABS: Bedside Glucose 156 mg/dL (74-106)
[2024-03-20 21:39] LABS: Bedside Glucose 211 mg/dL (74-106)
[2024-03-20 21:40] LABS: Bedside Glucose 235 mg/dL (74-106)
[2024-03-21 04:00] VITALS: BP 136/94; PULSE 93; RESP 20; TEMP 36.4; O2SAT 98
[2024-03-21] MEDS: Albuterol 2.5 MG/3 ML VIAL.NEB. INHALATION (04:24)
[2024-03-21 06:54] LABS: Bedside Glucose 125 mg/dL (74-106)
[2024-03-21 07:03] VITALS: PULSE 88; RESP 20; O2SAT 96
[2024-03-21] MEDS: Ipratropium/Albuterol Sulfate 3 ML AMPUL.NEB INHALATION ×2 (07:03→10:48)
[2024-03-21 08:28] VITALS: BP 110/76; PULSE 82; RESP 16; TEMP 36.2; O2SAT 97
[2024-03-21] MEDS: Ipratropium Bromide 0.06% NASAL SPRAY 1 SPRAY NASAL (08:32)
[2024-03-21] MEDS: Losartan Potassium 25 MG Tablet PO (08:33)
[2024-03-21] MEDS: Timolol 0.5% 5ML OPTH.BTL 1 DRP OPHTHALMIC (08:33)
[2024-03-21] MEDS: guaiFENesin 1,200 MG Tablet 1200 MG PO (08:33)
[2024-03-21 08:34] VITALS: BP 110/76; PULSE 82
[2024-03-21] MEDS: Metoprolol Tartrate 50 MG Tablet PO (08:34)
[2024-03-21] MEDS: Clopidogrel Bisulfate 75 MG Tablet PO (08:34)
[2024-03-21] MEDS: predniSONE 20 MG Tablet 40 MG PO (08:34)
[2024-03-21 10:48] VITALS: PULSE 85; RESP 20
--- NOTE | 2024-03-21 11:40 | DCINST_ITS ---
Discharge Instructions Diet Discharge Diet: No restrictions Activity Discharge Activity: Return to Normal Activity Weight Bearing Status: Full weight bearing Follow Up Care Test Results: Test results from this visit will be discussed in further detail at your follow- up appointment, if applicable. Discharge Plan Admission Admit Date/Time: 03/19/24 19:19 Primary Reason for Your Visit: A-FIB Attending Provider: Pk Gonzalez Primary Care Provider: Jessica Santiago Consulting Providers: Jose Garg; Ricky Quan Discharge Orders/Prescriptions Prescriptions: New prednisone 20 mg Tablet 40 mg PO BREAKFAST Qty: 9 0RF Rx Instructions: TWO once a day for 3 days, then 1/day for 3 days then discontinue metoprolol tartrate 50 mg Tablet 50 mg PO BID Qty: 60 0RF Continued clopidogrel 75 MG tablet 75 mg PO DAILY losartan 50 mg tablet 50 mg PO DAILY Patient Comments: TAKE 1 TABLET BY MOUTH DAILY latanoprost 0.005 % drops 1 drp EACH EYE QHS Patient Comments: Instill 1 drop into both eyes once a day tamsulosin 0.4 mg capsule 0.4 mg PO QHS Patient Comments: TAKE 1 CAPSULE BY MOUTH AT BEDTIME ergocalciferol (vitamin D2) 1,250 mcg (50,000 unit) capsule 1,250 mcg PO UD Patient Comments: TAKE 1 CAPSULE BY MOUTH twice a week Rx Instructions: 2x/week takes on and saturdays Combivent Respimat 20-100 mcg/actuation Mist 2 puff INHALATION Q6H Patient Comments: 25 mcg/100 mcg in medicatio bag albuterol sulfate 90 mcg/actuation HFA aerosol inhaler 2 puff inhalation Q6H PRN (Reason: shortness of breath or wheezing) Qty: 8.5 0RF timolol maleate 0.5 % drops 1 drp ophthalmic (eye) Q12H Patient Comments: Instill 1 drop in both eyes twice a day ipratropium bromide 21 mcg (0.03 %) spray,non-aerosol 2 spray INTRANASAL BID levocetirizine 5 mg tablet 5 mg PO QHS hydrocortisone 2.5 % cream 1 applic topical DAILY PRN (Reason: itching) guaifenesin 1,200 mg tablet extended release 12hr 1,200 mg PO Q12H 7 Days Qty: 14 6RF budesonide-formoterol [Symbicort] 160-4.5 mcg/actuation HFA aerosol inhaler 2 puff inhalation BID Qty: 10.2 6RF (DME) Nebulizer machine See Rx Instructions .ROUTE .MEDSUPPLY Qty: 1 0RF Rx Instructions: As directed ipratropium-albuterol 0.5 mg-3 mg(2.5 mg base)/3 mL solution for nebulization 3 ml inhalation Q4H PRN PRN (Reason: SOB &/OR WHEEZING) Qty: 180 6RF budesonide [Pulmicort] 0.5 mg/2 mL suspension for nebulization 0.5 mg inhalation DAILY 30 Days Qty: 60 11RF Referrals / Follow Up: Jessica Santiago DO [Primary Care Provider] - See Referral Note (In 3 weeks) Colton Malave MD [Med Staff - Active Staff] - See Referral Note (In 2 to 3 weeks) Disposition Disposition (needs filled in before D/C Order can be placed): Home, Self Care
--- NOTE | 2024-03-21 11:46 | PCM.DC.SUM ---
Providers Date of Admission: 03/19/24 Date of Discharge: 03/21/24 Primary Care Physician: Dr. Jessica Santiago, Consultations 03/20/24 00:30 Consult: Cardiology Routine Consulting Provider: Ricky Quan Reason for Consult: new onset afib with rvr EMERGENT Consult: No MD Notified: Yes Date Notified: 03/20/24 Time Notified: 06:48 Method of Notification: Text Reason For Visit: NEW ONSET A-FIB WITH RVR, COPD EXACERBATION Diagnosis Discharge Diagnosis (1) Atrial fibrillation with rapid ventricular response: Status: Acute Code(s): I48.91 - Unspecified atrial fibrillation (2) Pericardial effusion: Status: Acute Code(s): I31.39 - Other pericardial effusion (noninflammatory) Plan 1. New onset A-fib with RVR-patient's rate appears to be controlled at this time with rate limiting agents, he is on anticoagulation and will be seen by cardiology, echocardiogram was performed today #2 exacerbation of COPD-patient will remain on aerosol treatments and prednisone at this time, his lungs were clear anteriorly today #3 Chronic hypoxic respiratory failure #4 essential hypertension-patient is on losartan #5 BPH-patient is on Flomax #6 cerebrovascular disease-patient is on Plavix #7 pericardial effusion-suspicious for hemopericardium #8 chronic extreme hearing loss Total clinical time spent by myself addressing the patient's medical issues, reviewing all of his data, and collaborating with patient's care team: 35 minutes Medications at Discharge Home Medications clopidogrel 75 mg tablet 75 mg PO DAILY blood thinner 05/23/20 ergocalciferol (vitamin D2) 1,250 mcg (50,000 unit) capsule 1,250 mcg PO UD Check with primary doctor 01/24/23 ipratropium 20 mcg-albuterol 100 mcg/actuation mist for inhalation (Combivent Respimat) 2 puff inhalation Q6H COPD 01/24/23 latanoprost 0.005 % eye drops 1 drp EACH EYE QHS Check with primary doctor 01/24/23 losartan 50 mg tablet 50 mg PO DAILY high blood pressure 01/24/23 tamsulosin 0.4 mg capsule 0.4 mg PO QHS Check with primary doctor 01/24/23 albuterol sulfate 90 mcg/actuation aerosol inhaler 2 puff inhalation Q6H PRN shortness of breath or wheezing #8.5 grams 01/25/23 timolol maleate 0.5 % eye drops 1 drp ophthalmic (eye) Q12H EYES 10/19/23 budesonide-formoterol HFA 160 mcg-4.5 mcg/actuation aerosol inhaler (Symbicort) 2 puff inhalation BID #10.2 grams 12/17/23 Nebulizer machine #1 ea 12/22/23 ipratropium 0.5 mg-albuterol 3 mg (2.5 mg base)/3 mL nebulization soln 3 ml inhalation Q4H PRN PRN SOB &/OR WHEEZING #180 mL 12/22/23 hydrocortisone 2.5 % topical cream 1 applic topical DAILY PRN itching 02/18/24 ipratropium bromide 21 mcg (0.03 %) nasal spray 2 spray intranasal BID SOB 02/18/24 levocetirizine 5 mg tablet 5 mg PO QHS ALLERGIES SEASONAL 02/18/24 guaifenesin 1,200 mg tablet, extended release 12 hr 1,200 mg PO Q12H 7 days #14 tabs 02/21/24 budesonide 0.5 mg/2 mL suspension for nebulization (Pulmicort) 0.5 mg (2 mL) inhalation DAILY 1 month #60 mL 03/03/24 metoprolol tartrate 50 mg tablet 50 mg PO BID #60 tabs 03/21/24 prednisone 20 mg tablet 40 mg (2 x 20 mg) PO BREAKFAST #9 tabs 03/21/24 Hospital Course Operations None Procedures 2-D Echocardiogram Summary of Care Provided Minutes Spent on Discharge: 31 Hospital Course: This 84-year-old white male was seen in the emergency room at [facility] with complaints of increasing shortness of breath x 4 days. Patient did not complain of chest pain or fever. Patient has a history of COPD and is on home oxygen and has home inhalers and aerosol machine. Workup in the emergency room included a CBC which was unremarkable, chemistry profile was remarkable for a glucose of 169, patient's beta natruretic peptide was slightly elevated at 118. Chest x-ray showed no evidence of acute cardiopulmonary disease, EKG revealed atrial fibrillation with a rate of 114. Nonspecific ST-T wave changes were seen. Patient was started on a Cardizem drip in the emergency room, an IV dose of Solu-Medrol and an aerosol treatment was given due to expiratory wheezing. Patient was admitted to PCU, the Cardizem drip was not continued and the patient was placed on rate limiting medication. Rate limiting medication controlled the patient's heart rate, patient received aerosol treatments and p.o. prednisone, he improved during his hospitalization, he was seen by cardiology who performed an echocardiogram which showed a normal EF but there was evidence of a pericardial effusion-the appearance was worrisome for blood. Cardiology did not recommend using anticoagulation on the patient for this reason. On 03/21/2024, patient was seen and examined: On examination he appeared in good health and spirits. Patient was extremely hard of hearing. Vital signs as documented. Skin warm and dry and without overt rashes. Neck without JVD, neck was supple, trachea midline, thyroid was normal. Lungs-there were scattered expiratory wheezes noted on the right, normal air movement was noted. Heart exam notable for irregular rhythm, normal sounds and absence of murmurs, rubs or gallops. Abdomen unremarkable and without evidence of organomegaly, masses, or abdominal aortic enlargement. Bowel sounds are present, abdomen is not distended. Extremities nonedematous, no cyanosis was noted, no clubbing was noted. Neuro: Cranial nerves II through XII are grossly intact, no focal motor deficits were noted, sensation to light touch and pinprick intact, motor exam 5/5 throughout. Psych: Patient is alert and oriented x3, he does not appear anxious or depressed, he does not appear agitated. Patient was felt to be in stable condition for discharge home on 03/21/2024, I talked to the by telephone and went over his medical care with her. Patient did not require oxygen the time of his discharge at rest or ambulating. Weight / BMI Weight Weight: 99.836 kg Body Mass Index (BMI) 34.4 ABG / Lab / Microbiology Data 03/20/24 05:19 03/20/24 05:19 Laboratory: Laboratory Results - last 24 hr 03/20/24 05:19: Magnesium 2.0 03/20/24 11:43: POC Glucose 211 H 03/20/24 16:37: POC Glucose 156 H 03/20/24 21:10: POC Glucose 235 H 03/21/24 06:36: POC Glucose 125 H Microbiology: Microbiology 03/19/24 23:20 Mucosa - Nasopharyngeal Respiratory Panel (PCR) - Final 03/19/24 19:15 Mucosa - Nasopharyngeal SARS-CoV-2, Influenza & RSV (PCR) - Final Radiography Diagnostic Testing: Radiology Impression Echocardiogram 03/19/24 20:04 Interpretation Summary The estimated ejection fraction is 70 %. No evidence for diastolic dysfunction. Small pericardial effusion. Echogenic pericardium. Ordering Physician: Jose Garg Referring Physician: Jessica Santiago Performed By: Bree Oneill RDCS, RVT D/C Instructions Discharge Diet: No restrictions Weight Bearing Status: Full weight bearing Meaningful Use Info Meaningful Use Meaningful Use Diagnoses (Choose all that apply): None applicable Ischemic Stroke Statin Dosing Therapy Reference: STATIN DOSE THERAPY REFERENCE: * Patients > 75 years receive moderate or high dose statin therapy. * Patients 75 years or YOUNGER should receive HIGH intensity statin dose unless contraindicated. You will be required to document reason for non-treatment if statin daily dose does not meet guidelines. HIGH DOSE STATIN THERAPY DAILY Atorvastatin > than or = to 40 mg Rosuvastatin > than or = to 20 mg Amlodipine + Atorvastatin > than or = to 2.5/40 mg Ezetimibe + Simvastatin 10/80 mg Simvastatin 80mg Discharge Plan Admission Admit Date/Time: 03/19/24 19:19 Primary Reason for Your Visit: A-FIB Attending Provider: Pk Gonzalez Primary Care Provider: Jessica Santiago Consulting Providers: Jose Garg; Ricky Quan Discharge Orders/Prescriptions Prescriptions: New prednisone 20 mg Tablet 40 mg PO BREAKFAST Qty: 9 0RF Rx Instructions: TWO once a day for 3 days, then 1/day for 3 days then discontinue metoprolol tartrate 50 mg Tablet 50 mg PO BID Qty: 60 0RF Continued clopidogrel 75 MG tablet 75 mg PO DAILY losartan 50 mg tablet 50 mg PO DAILY Patient Comments: TAKE 1 TABLET BY MOUTH DAILY latanoprost 0.005 % drops 1 drp EACH EYE QHS Patient Comments: Instill 1 drop into both eyes once a day tamsulosin 0.4 mg capsule 0.4 mg PO QHS Patient Comments: TAKE 1 CAPSULE BY MOUTH AT BEDTIME ergocalciferol (vitamin D2) 1,250 mcg (50,000 unit) capsule 1,250 mcg PO UD Patient Comments: TAKE 1 CAPSULE BY MOUTH twice a week Rx Instructions: 2x/week takes on and saturdays Combivent Respimat 20-100 mcg/actuation Mist 2 puff INHALATION Q6H Patient Comments: 25 mcg/100 mcg in medicatio bag albuterol sulfate 90 mcg/actuation HFA aerosol inhaler 2 puff inhalation Q6H PRN (Reason: shortness of breath or wheezing) Qty: 8.5 0RF timolol maleate 0.5 % drops 1 drp ophthalmic (eye) Q12H Patient Comments: Instill 1 drop in both eyes twice a day ipratropium bromide 21 mcg (0.03 %) spray,non-aerosol 2 spray INTRANASAL BID levocetirizine 5 mg tablet 5 mg PO QHS hydrocortisone 2.5 % cream 1 applic topical DAILY PRN (Reason: itching) guaifenesin 1,200 mg tablet extended release 12hr 1,200 mg PO Q12H 7 Days Qty: 14 6RF budesonide-formoterol [Symbicort] 160-4.5 mcg/actuation HFA aerosol inhaler 2 puff inhalation BID Qty: 10.2 6RF (DME) Nebulizer machine See Rx Instructions .ROUTE .MEDSUPPLY Qty: 1 0RF Rx Instructions: As directed ipratropium-albuterol 0.5 mg-3 mg(2.5 mg base)/3 mL solution for nebulization 3 ml inhalation Q4H PRN PRN (Reason: SOB &/OR WHEEZING) Qty: 180 6RF budesonide [Pulmicort] 0.5 mg/2 mL suspension for nebulization 0.5 mg inhalation DAILY 30 Days Qty: 60 11RF Referrals / Follow Up: Jessica Santiago DO [Primary Care Provider] - See Referral Note (In 3 weeks) Colton Malave MD [Med Staff - Active Staff] - See Referral Note (In 2 to 3 weeks) Disposition Disposition (needs filled in before D/C Order can be placed): Home, Self Care Charges/Coding Visit Charges Inpatient E&M: 99707 Disch Hosp >30min
[2024-03-21 11:48] VITALS: BP 123/86; PULSE 73; RESP 16; TEMP 36.1; O2SAT 96
[2024-03-21] MEDS: Insulin Lispro 100 UNIT/ML INSULN.PEN SC (12:46)
[2024-03-21 13:10] LABS: Bedside Glucose 217 mg/dL (74-106)
== END 2024-03-21 13:59 | disposition home or self-care (01) | DRG 309 ==
LOC: ED 19:04 → PCU 19:41
PROVIDERS: Admitting Provider Hospitalist; Emergency Provider Emergency Medicine; PCP Family Medicine; Visit Provider Internal Medicine
DX: I48.91 Unspecified atrial fibrillation (principal); I31.39 Other pericardial effusion (noninflammatory); J96.11 Chronic respiratory failure with hypoxia; J44.1 Chronic obstructive pulmonary disease with (acute) exacerbation; I10 Essential (primary) hypertension; E78.5 Hyperlipidemia, unspecified; E66.9 Obesity, unspecified; Z79.02 Long term (current) use of antithrombotics/antiplatelets; N40.0 Benign prostatic hyperplasia without lower urinary tract symptoms; Z82.3 Family history of stroke; H91.90 Unspecified hearing loss, unspecified ear; Z79.51 Long term (current) use of inhaled steroids; Z86.73 Personal history of transient ischemic attack (TIA), and cerebral infarction without residual deficits; Z68.34 Body mass index [BMI] 34.0-34.9, adult; Z87.891 Personal history of nicotine dependence; Z99.81 Dependence on supplemental oxygen
CPT/HCPCS: 36415; 71045; 80048; 82962; 83735; 83880; 84443; 84484; 85025; 85027; 87631; 87633; 93005; 93306; 94640; 94668; 97162; 97166; 99285; Q9957; A4216; C8929

== ENCOUNTER → 2024-05-10 | Outpatient (CLI) | payer MEDICARE, OTHER, SELFPAY ==
--- NOTE | 2024-05-10 09:40 | ECHOL_ITS ---
Reason For Study: PERICARDIAL EFFUSION Procedure This was a limited 2D transthoracic echocardiogram. Exam performed in department. Left Ventricle Normal LV size. The estimated ejection fraction is 65 %. Diastolic function is indeterminate. No regional wall motion abnormalities noted. Right Ventricle Normal RV size. Normal systolic function. Atria The left and right atria are normal. No doppler evidence for ASD. Mitral Valve There is no mitral valve stenosis. Trivial mitral valve insufficiency. Tricuspid Valve There is no tricuspid stenosis. Trivial tricuspid valve insufficiency. Pulmonary artery systolic pressure is 40-45 mmHg. Aortic Valve Trisinus/trileaflet aortic valve. Moderate diffuse aortic valve thickening. There is no aortic stenosis. No aortic valve insufficiency. Pulmonic Valve There is no pulmonic valvular stenosis. No pulmonic valve insufficiency. Great Vessels Normal aortic root. Pericardium/Pleural No pericardial effusion. MMode/2D Measurements & Calculations LVIDd: 3.8 cm IVSd: 1.4 cm LVOT diam: 2.0 cm LVIDs: 2.1 cm LVPWd: 1.4 cm LVOT area: 3.2 cm2 RVDd: 4.1 cm FS: 45.4 % Ao root diam: 3.7 cm LAV(MOD-bp): 59.4 ml LVAd ap4: 17.8 cm2 LAV(MOD-bp) Indexed: 28.7 ml/m2 LVLd ap4: 6.6 cm LAV(MOD-sp2): 73.2 ml EDV(MOD-sp4): 38.4 ml LAV(MOD-sp4): 44.2 ml EDV(sp4-el): 40.6 ml LVAs ap4: 10.3 cm2 LVLs ap4: 5.8 cm ESV(MOD-sp4): 15.2 ml ESV(sp4-el): 15.6 ml EF(MOD-sp4): 60.5 % EF(sp4-el): 61.6 % LVAd ap2: 18.9 cm2 SV(MOD-sp4): 23.3 ml SV(MOD-sp2): 27.6 ml LVLd ap2: 6.5 cm EDV(MOD-sp2): 44.8 ml EDV(sp2-el): 46.5 ml LVAs ap2: 10.8 cm2 LVLs ap2: 5.8 cm ESV(MOD-sp2): 17.2 ml ESV(sp2-el): 17.1 ml EF(MOD-sp2): 61.6 % SV(sp4-el): 25.0 ml LA dimension(2D): 4.1 cm LA A4 area: 18.9 cm2 RA A4 area: 23.9 cm2 TAPSE: 1.2 cm Doppler Measurements & Calculations Lat Peak E' Derrek: 6.5 cm/sec Med Peak E' Derrek: 6.4 cm/sec Ao V2 max: 137.1 cm/sec Ao max P.6 mmHg Ao V2 mean: 102.2 cm/sec Ao mean P.5 mmHg Ao V2 VTI: 26.1 cm AV (velocity ratio): 0.62 KESHIA(I,D): 2.0 cm2 KESHIA(V,D): 2.0 cm2 LV V1 max: 86.5 cm/sec SV(LVOT): 51.8 ml TR max derrek: 305.5 cm/sec LV V1 max P.1 mmHg TR max P.3 mmHg LV V1 mean P.7 mmHg LV V1 mean: 62.7 cm/sec LV V1 VTI: 16.0 cm ECHO/Echo, Limited Study Interpretation Summary The estimated ejection fraction is 65 %. Diastolic function is indeterminate. Trivial mitral valve insufficiency. Ordering Physician: Colton Malave Referring Physician: Colton Malave MD Performed By: Anh Holly RDCS
== END | disposition home or self-care (01) ==
LOC: CVS 09:34
PROVIDERS: PCP Family Medicine; Referring Provider Internal Medicine Cardiovascular Disease; Visit Provider Internal Medicine Cardiovascular Disease
DX: I31.39 Other pericardial effusion (noninflammatory) (principal)
CPT/HCPCS: 93308

== ENCOUNTER → 2024-06-03 | Outpatient (CLI) | payer MEDICARE, OTHER, SELFPAY ==
[2024-06-03 11:09] LABS: Hematocrit 44.9 % (40-54); Hemoglobin 14.8 g/dL (13.0-16.5); Mean Corpuscular Hgb 30.9 pg (27.0-32.0); Mean Corpuscular Volume 93.7 fL (80-94); Mean Platelet Vol. 8.6 fl (6.2-12.0); Platelet Count 214 K/mm3 (150-450); RBC Distribution Width CV 13.4 % (11.6-14.6); RBC Distribution Width SD 46.4 fl (35.1-43.9); Red Blood Count 4.79 M/mm3 (4.6-6.2); White Blood Count 10.9 K/mm3 (4.4-11.0)
[2024-06-03 11:45] LABS: Anion Gap 5 (5-15); BUN 18 mg/dL (7-18); BUN/Creat Ratio 26.1 RATIO (10-20); Calcium,Total 10.1 mg/dL (8.5-10.1); Chloride 111 mmol/L (98-107); Creatinine, Serum 0.69 mg/dL (0.70-1.30); EST Glomerular Filtration Rate 116 mL/min (>60); Est Glom Filt Rate - Afr Amer 140 mL/min (>60); Glucose 141 mg/dL (74-106); Potassium 3.7 mmol/L (3.5-5.1); Sodium Level 141 mmol/L (136-145)
== END | disposition home or self-care (01) ==
LOC: LAB 10:47
PROVIDERS: PCP Family Medicine; Referring Provider Internal Medicine Cardiovascular Disease; Visit Provider Internal Medicine Cardiovascular Disease
DX: I48.91 Unspecified atrial fibrillation (principal)
CPT/HCPCS: 36415; 80048; 85027

== ENCOUNTER 2025-09-21 17:01 | Emergency (ER) | payer MEDICARE, OTHER, SELFPAY ==
[2025-09-21 17:05] VITALS: BP 128/87; PULSE 100; RESP 18; TEMP 36.6; O2SAT 95
--- NOTE | 2025-09-21 17:12 | ED.RN ---
Pt decided not to wait to be seen because he felt better after having taken some tylenol at home. Pt states he only came in d/t his boys concerns and pushing him to come be seen. Pt reminded that we are open all the time if he starts feeling worse and wants to come back and be seen.
== END 2025-09-21 17:17 | disposition left against medical advice (07) ==
LOC: ED 17:17
PROVIDERS: PCP Family Medicine
DX: R69 Illness, unspecified (principal)